=== PATIENT | male | born 1965 | race African-American/Black ===

== ENCOUNTER 2016-04-20 00:28 | Emergency (ER) | payer SELFPAY ==
[~2016-04-20] VITALS: Ht 170.2 cm; Wt 63.0 kg
[~2016-04-20 00:28] MED LIST: LEVEMIR SQ; LISI-357 PO; NOVOLOGP2 SQ
[2016-04-20 01:01] VITALS: BP 143/90; PULSE 91; RESP 16; TEMP 98; O2SAT 98
[2016-04-20] MEDS ORDERED: SODIUM CHLOR 0.9% 1000 ML INJ 1,000 ML IV ONE (01:01)
--- NOTE | 2016-04-20 01:05 | PD ---
HPI Chief Complaint: Back/ Neck Pain or Injury Time Seen by Provider: 00:50 Travel History International Travel<30 days: No Contact w/Intl Traveler<30days: No Traveled to known affect area: No History of Present Illness HPI 50-year-old male with history of diabetes, crack cocaine abuse who presents for evaluation of left flank pain. Symptoms started this afternoon. He describes it as a sharp pain in his left flank which comes and goes. No obvious alleviating factors. Aggravated by palpation of the flank. He denies any radicular symptoms, bowel or bladder incontinence, saddle anesthesia, abdominal pain, nausea, vomiting, testicular or scrotal pain, hematuria, dysuria, urethral discharge. No fevers or chills. No history of kidney stone, no history of AAA. Denies any IV drug abuse. He admits to smoking crack. He has no other complaints. PFSH Past Medical History Asthma: No Blood Disorders: No Anxiety: No Depression: No Heart Rhythm Problems: No Cancer: No Cardiovascular Problems: Yes (HTN- THINKS HE MIGHT TAKE SOMETHING AT HOME FOR IT BUT NOT REALLY SURE) Chemotherapy: No Chest Pain: No Congestive Heart Failure: No COPD: No Diabetes: Yes Diminished Hearing: No Endocrine: Yes Gastrointestinal Disorders: No Genitourinary: No Hepatitis: No Hiatal Hernia: No Hypertension: Yes (DOES NOT KNOW IF HE TAKES MEDICINE FOR IT OR NOT) Immune Disorder: No Musculoskeletal: No Neurologic: No Psychiatric: No Reproductive: No Respiratory: No Radiation Therapy: No Sleep Apnea: No Thyroid Disease: No Past Surgical History Abdominal Surgery: Yes (R INGUINAL HERNIA REPAIR IN CHILDHOOD) AICD: No Joint Replacement: No Pacemaker: No Other Surgery: Yes (HERNIA REPAIR) Social History Alcohol Use: No Tobacco Use: Yes (beginning of jan 2015) Substance Use: No Allergies-Medications (Allergen,Severity, Reaction): Coded Allergies: No Known Allergies (Unverified , 04/20/16) Reported Meds & Prescriptions Reported Meds & Active Scripts Active No Active Prescriptions or Reported Medications Review of Systems Except as stated in HPI: all other systems reviewed are Neg Physical Exam Narrative GENERAL: Well-developed well-nourished male who appears uncomfortable on initial examination. SKIN: Warm and dry. No rash, no flank or periumbilical ecchymosis HEAD: Atraumatic. Normocephalic. EYES: Pupils equal and round. No scleral icterus. No injection or drainage. ENT: No nasal bleeding or discharge. Mucous membranes pink and moist. NECK: Trachea midline. No JVD. CARDIOVASCULAR: Regular rate and rhythm. No murmur appreciated. RESPIRATORY: No accessory muscle use. Clear to auscultation. Breath sounds equal bilaterally. GASTROINTESTINAL: Abdomen soft, non-tender, nondistended. Hepatic and splenic margins not palpable. MUSCULOSKELETAL: No obvious deformities. There is tenderness to palpation of the left flank. There is no tenderness to palpation along the thoracic or lumbar midline spine. NEUROLOGICAL: Awake and alert. No obvious cranial nerve deficits. Motor grossly within normal limits. Normal speech. PSYCHIATRIC: Appropriate mood and affect; insight and judgment normal. Data Data Last Documented VS Vital Signs Date Time Temp Pulse Resp B/P Pulse Ox O2 Delivery O2 Flow Rate FiO2 04/20/16 02:03 16 04/20/16 01:01 98.0 91 143/90 98 Room Air Orders ^ Other Nursing Orders (04/20/16 00:50) Complete Blood Count With Diff (04/20/16 01:01) Comprehensive Metabolic Panel (04/20/16 01:01) Urinalysis - C+S If Indicated (04/20/16 01:01) Ct Abd/Pel W/O Iv Contrast (04/20/16 01:01) Iv Access Insert/Monitor (04/20/16 01:01) Ketorolac Inj (Toradol Inj) (04/20/16 01:15) Morphine Inj (Morphine Inj) (04/20/16 01:15) Ondansetron Inj (Zofran Inj) (04/20/16 01:15) Sodium Chloride 0.9% Flush (Ns Flush) (04/20/16 01:15) Sodium Chlor 0.9% 1000 Ml Inj (Ns 1000 M (04/20/16 01:01) Orphenadrine Inj (Norflex Inj) (04/20/16 03:00) Labs Laboratory Tests Test 04/20/16 01:15 White Blood Count 7.2 TH/MM3 Red Blood Count 5.44 MIL/MM3 Hemoglobin 14.2 GM/DL Hematocrit 44.2 % Mean Corpuscular Volume 81.3 FL Mean Corpuscular Hemoglobin 26.1 PG Mean Corpuscular Hemoglobin 32.1 % Concent Red Cell Distribution Width 15.1 % Platelet Count 217 TH/MM3 Mean Platelet Volume 9.4 FL Neutrophils (%) (Auto) 71.2 % Lymphocytes (%) (Auto) 21.5 % Monocytes (%) (Auto) 5.9 % Eosinophils (%) (Auto) 0.7 % Basophils (%) (Auto) 0.7 % Neutrophils # (Auto) 5.1 TH/MM3 Lymphocytes # (Auto) 1.6 TH/MM3 Monocytes # (Auto) 0.4 TH/MM3 Eosinophils # (Auto) 0.1 TH/MM3 Basophils # (Auto) 0.1 TH/MM3 CBC Comment DIFF FINAL Differential Comment Urine Color YELLOW Urine Turbidity CLEAR Urine pH 6.0 Urine Specific [place] 1.017 Urine Protein NEG mg/dL Urine Glucose (UA) NEG mg/dL Urine Ketones NEG mg/dL Urine Occult Blood NEG Urine Nitrite NEG Urine Bilirubin NEG Urine Urobilinogen LESS THAN 2.0 MG/DL Urine Leukocyte Esterase NEG Urine Mucus FEW /lpf Microscopic Urinalysis Comment CULT NOT INDICATED Sodium Level 140 MEQ/L Potassium Level 4.5 MEQ/L Chloride Level 104 MEQ/L Carbon Dioxide Level 29.8 MEQ/L Anion Gap 6 MEQ/L Blood Urea Nitrogen 16 MG/DL Creatinine 0.92 MG/DL Estimat Glomerular Filtration 106 ML/MIN Rate Random Glucose 152 MG/DL Calcium Level 9.1 MG/DL Total Bilirubin 0.7 MG/DL Aspartate Amino Transf 40 U/L (AST/SGOT) Alanine Aminotransferase 59 U/L (ALT/SGPT) Alkaline Phosphatase 77 U/L Total Protein 7.8 GM/DL Albumin 3.9 GM/DL MDM Medical Decision Making Medical Screen Exam Complete: Yes Emergency Medical Condition: Yes Medical Record Reviewed: Yes Differential Diagnosis Muscle spasm, renal stone, pyelonephritis, rupturing AAA Narrative Course 50-year-old male presents with pain in the left flank region of his back which started today. On examination he has tenderness to palpation in the left flank region. He has no vertebral midline tenderness. He appears well otherwise. His abdomen is soft and nontender. The patient was given pain medication, IV fluids. Basic lab work and CT of the abdomen and pelvis were performed revealing no acute abnormalities. Likely the patient is having a muscle spasm. He is stable for discharge. Diagnosis Primary Impression: Back spasm Additional Instructions: Follow-up with primary care. Return for any emergent medical conditions. Med/Other Pt SpecificInfo: No Change to Meds Scripts No Active Prescriptions or Reported Meds Disposition: 01 DISCHARGE HOME Condition: Stable Fernando Arechiga Apr 20, 2016 01:04
[2016-04-20] MEDS ORDERED: KETOROLAC TROMETHAMINE 30 MG/ML (IVP) VIAL IVP ONE (01:15)
[2016-04-20] MEDS ORDERED: SODIUM CHLORIDE 0.9% FLUSH 5 ML FLUSH IVF PRN (01:15)
[2016-04-20] MEDS ORDERED: ONDANSETRON HCL 4 MG/2 ML VIAL IVP ONE (01:15)
[2016-04-20] MEDS ORDERED: MORPHINE SULFATE 4 MG/ML INJ IV ONE (01:15)
[2016-04-20 01:40] LABS: BLOOD, URINE NEG (NEG); COMMENT (UR) CULT NOT INDICATED; CULTURE IF INDICATED CULT NOT INDICATED; GLUCOSE,URINE NEG (NEG); KETONE, URINE NEG (NEG); MUCUS URINE FEW /lpf (OCC); NITRITE,URINE NEG (NEG); URINE COLOR YELLOW (YELLW/STRAW)
[2016-04-20 01:46] LABS: AUTOMATED NEUTROPHIL # 5.1 TH/MM3 (1.8-7.7); BASOPHIL # 0.1 TH/MM3 (0-0.2); BASOPHIL % 0.7 % (0.0-2.0); EOSINOPHIL # 0.1 TH/MM3 (0-0.4); EOSINOPHIL % 0.7 % (0.0-4.0); HEMATOCRIT 44.2 % (39.0-51.0); HEMO FLAGS DIFF FINAL; LYMPH % 21.5 % (9.0-44.0); LYMPHOCYTE # 1.6 TH/MM3 (1.0-4.8); MEAN CELL VOLUME 81.3 FL (80.0-100.0); MEAN CORPUSCULAR HEMOGLOBIN 26.1 PG (27.0-34.0); MEAN CORPUSCULAR HGB CONC 32.1 % (32.0-36.0); MONO % 5.9 % (0.0-8.0); NEUT % 71.2 % (16.0-70.0); PLATELET COUNT 217 TH/MM3 (150-450); RED BLOOD COUNT 5.44 MIL/MM3 (4.50-5.90); RED CELL DISTRIBUTION WIDTH 15.1 % (11.6-17.2); WHITE BLOOD COUNT 7.2 TH/MM3 (4.0-11.0)
[2016-04-20 01:59] LABS: ANION GAP 6 MEQ/L (5-15); AST (GOT) 40 U/L (15-37); BICARBONATE 29.8 MEQ/L (21.0-32.0); BLOOD UREA NITROGEN 16 MG/DL (7-18); CHLORIDE 104 MEQ/L (98-107); GLOMERULAR FILTRATION RATE 106 ML/MIN (>89); POTASSIUM 4.5 MEQ/L (3.5-5.1); SODIUM (NA) 140 MEQ/L (136-145)
[2016-04-20 02:02] LABS: ALKALINE PHOSPHATASE 77 U/L (45-117); ALT (GPT) 59 U/L (12-78); TOTAL BILIRUBIN ADULT 0.7 MG/DL (0.2-1.0)
[2016-04-20 02:03] VITALS: RESP 16
--- NOTE | 2016-04-20 02:49 | RADRPT ---
EXAM DATE/TIME: 04/20/2016 01:41 [facility] COMPARISON: No previous studies available for comparison. INDICATIONS : Lower back pain. ORAL CONTRAST: No oral contrast ingested. RADIATION DOSE: 13.28 CTDIvol (mGy) MEDICAL HISTORY : Hypertension. Hernia, inguinal. SURGICAL HISTORY : Inguinal hernia repair. ENCOUNTER: Initial ACUITY: 1 day PAIN SCALE: 6/10 LOCATION: Bilateral lower back TECHNIQUE: Volumetric scanning of the abdomen and pelvis was performed. Using automated exposure control and ad justment of the mA and/or kV according to patient size, radiation dose was kept as low as reasonably achievable to obtain optimal diagnostic quality images. FINDINGS: Right side: No evidence of hydronephrosis or calcified stones. The right kidney is ptotic, probably due to hepat omegaly. Left side: No evidence of hydronephrosis or calcified stones. Retroperitoneum: No calcifications along the expected course of either ureter. Bladder: Smooth margins. No calcifications within the lumen. Other: Hepatomegaly with superior/inferior dimension in excess of 22 cm. No calcified gallstones. No dilat ed loops of small or large bowel. CONCLUSION: No calcified stones or hydronephrosis. Hepatomegaly. Manan Piper MD on April 20, 2016 at 2:44 Board Certified Radiologist. This report was verified electronically.
[2016-04-20] MEDS ORDERED: ORPHENADRINE INJ 60 MG/2 ML AMP IV ONE (03:00)
[2016-04-20 03:39] VITALS: BP 151/63
== END 2016-04-20 03:41 | disposition home or self-care (01) ==
LOC: NEPB 00:28
DX: M62.830 Muscle spasm of back (principal); E11.9 Type 2 diabetes mellitus without complications; I10 Essential (primary) hypertension; F17.210 Nicotine dependence, cigarettes, uncomplicated
CPT/HCPCS: 74176; 80053; 81001; 85025; 96361; 96374; 96375; 99284; J1885; J2270; J2360; J2405; J7030

== ENCOUNTER 2016-09-16 05:27 | Inpatient (IN) | payer SELFPAY ==
[~2016-09-16] VITALS: Ht 177.8 cm; Wt 61.8 kg
[2016-09-16] VITALS (26 sets, daily range): BP systolic 86–200; BP diastolic 58–124; PULSE 85–133; RESP 14–24; TEMP 97.3–99.9; O2SAT 88–99
[2016-09-16] MEDS ORDERED: VECURONIUM BROMIDE 10 MG VIAL ONE (05:30)
[2016-09-16] MEDS ORDERED: VECURONIUM BROMIDE 10 MG VIAL IV ONE (05:45)
[2016-09-16] MEDS ORDERED: SODIUM CHLORIDE 0.9% FLUSH 10 ML FLUSH IVF PRN ×2 (05:45)
[2016-09-16] MEDS ORDERED: PROPOFOL 200 MG/20 ML AMP IV ONE (05:45)
--- NOTE | 2016-09-16 05:56 | PD ---
HPI Chief Complaint: Code Blue Time Seen by Provider: 05:38 Travel History International Travel<30 days: No Contact w/Intl Traveler<30days: No Traveled to known affect area: No History of Present Illness HPI 51-year-old male with history of diabetes, hep C, substance abuse, presents to the ER brought in by EMS because he stated initially that he had been having shortness of breath for several days, got worse when he uses cocaine about an hour prior to seeing the EMS crew. While he was complaining, he became unresponsive and was found to be in PEA by the ambulance crew, they intubated him with a Combitube and started CPR with around epinephrine and got him back fairly quickly into perfusing rhythm. He was intubated by me in the ER. Modifying Factors: None Associated Signs & Symptoms: Respiratory arrest, PEA code Risk Factors: Cocaine use PFSH Past Medical History Diabetes: Yes Social History Tobacco Use: Yes Allergies-Medications (Allergen,Severity, Reaction): Coded Allergies: UNOBTAINABLE (Unverified , 09/16/16) Reported Meds & Prescriptions Reported Meds & Active Scripts Active Active Prescriptions or Reported Medications Unobtainable Review of Systems ROS Limitations: Intubated Physical Exam Narrative GENERAL: Well-developed middle age -German male patient who is intubated, starting to move. SKIN: Focused skin assessment warm/dry. HEAD: Atraumatic. Normocephalic. EYES: Pupils equal and round. No scleral icterus. No injection or drainage. ENT: No nasal bleeding or discharge. Mucous membranes pink and moist. Intubated. NECK: Trachea midline. Positive JVD. CARDIOVASCULAR: Regular rate and rhythm. No murmur appreciated. RESPIRATORY: Notable accessory muscle use. Breath sounds equal bilaterally with crackles bilaterally. GASTROINTESTINAL: Abdomen soft, non-tender, nondistended. Hepatic and splenic margins not palpable. MUSCULOSKELETAL: No obvious deformities. No clubbing. No cyanosis. No edema. NEUROLOGICAL: Intubated, trying to struggle against the tube. Data Data Last Documented VS Vital Signs Date Time Temp Pulse Resp B/P Pulse Ox O2 Delivery O2 Flow Rate FiO2 09/16/16 06:36 122 14 145/91 90 Ventilator 100 09/16/16 05:58 98.4 Orders Vecuronium 10 Mg Inj (Norcuron 10 Mg Inj (09/16/16 05:30) Complete Blood Count With Diff (6/20/17 05:38) Comprehensive Metabolic Panel (09/16/16 05:38) B-Type Natriuretic Peptide (09/16/16 05:38) Act Partial Throm Time (Ptt) (09/16/16 05:38) Prothrombin Time / Inr (Pt) (09/16/16 05:38) Ckmb (Isoenzyme) Profile (09/16/16 05:38) Troponin I (09/16/16 05:38) Arterial Blood Gas (Abg) (09/16/16 05:38) Iv Access Insert/Monitor (09/16/16 05:38) Electrocardiogram (09/16/16 05:38) Ecg Monitoring (09/16/16 05:38) Oximetry (09/16/16 05:38) Oxygen Administration (09/16/16 05:38) Chest, Single Ap (09/16/16 05:38) Urinary Catheter Insert/Apply (09/16/16 05:38) Sodium Chloride 0.9% Flush (Ns Flush) (09/16/16 05:45) Ng Gastric Tube Insert/Monitor (09/16/16 05:38) Vecuronium 10 Mg Inj (Norcuron 10 Mg Inj (09/16/16 05:45) Sodium Chloride 0.9% Flush (Ns Flush) (09/16/16 05:45) Restraints Non-Violent ALBERTO.Q3H (09/16/16 05:38) Propofol 200 Mg/20 Ml Inj (Diprivan 200 (09/16/16 05:45) Propofol 1000 Mg/100 Ml Inj (Diprivan 10 (09/16/16 05:45) Drug Screen, Random Urine (09/16/16 05:41) Lactic Acid Sepsis Protocol (09/16/16 06:17) Urinalysis - C+S If Indicated (09/16/16 06:17) Blood Culture (09/16/16 06:17) Ceftriaxone Inj (Rocephin Inj) (09/16/16 06:17) Azithromycin Inj (Zithromax Inj) (09/16/16 06:17) Sodium Bicarbonate 8.4% Inj (Sodium Bica (09/16/16 06:30) CKMB (09/16/16 05:45) CKMB% (09/16/16 05:45) Ct Brain W/O Iv Contrast(Rout) (09/16/16 06:37) Sodium Bicarbonate 8.4% Inj (Sodium Bica (09/16/16 06:38) Ct Thorax/ Chest W Iv Contrast (09/16/16 06:40) Labs Laboratory Tests Test 09/16/16 05:45 White Blood Count 13.0 TH/MM3 Red Blood Count 5.16 MIL/MM3 Hemoglobin 13.6 GM/DL Hematocrit 44.5 % Mean Corpuscular Volume 86.3 FL Mean Corpuscular Hemoglobin 26.4 PG Mean Corpuscular Hemoglobin 30.6 % Concent Red Cell Distribution Width 15.2 % Platelet Count 221 TH/MM3 Mean Platelet Volume 10.3 FL Neutrophils (%) (Auto) 47.1 % Lymphocytes (%) (Auto) 39.1 % Monocytes (%) (Auto) 11.3 % Eosinophils (%) (Auto) 1.8 % Basophils (%) (Auto) 0.7 % Neutrophils # (Auto) 6.1 TH/MM3 Lymphocytes # (Auto) 5.1 TH/MM3 Monocytes # (Auto) 1.5 TH/MM3 Eosinophils # (Auto) 0.2 TH/MM3 Basophils # (Auto) 0.1 TH/MM3 CBC Comment DIFF FINAL Differential Comment Prothrombin Time 11.1 SEC Prothromb Time International 1.0 RATIO Ratio Activated Partial 30.6 SEC Thromboplast Time Total Bilirubin 0.8 MG/DL Alkaline Phosphatase 108 U/L Total Creatine Kinase 658 U/L Troponin I 0.09 NG/ML Total Protein 7.1 GM/DL MDM Medical Decision Making Medical Screen Exam Complete: Yes Emergency Medical Condition: Yes Medical Record Reviewed: Yes Interpretation(s) EKG shows sinus tachycardia at a rate of 125 bpm with no signs of acute ST-T changes. LVH. Laboratory Tests Test 09/16/16 05:45 White Blood Count 13.0 TH/MM3 (4.0-11.0) Mean Corpuscular Hemoglobin 26.4 PG (27.0-34.0) Mean Corpuscular Hemoglobin 30.6 % Concent (32.0-36.0) Monocytes (%) (Auto) 11.3 % (0.0-8.0) Lymphocytes # (Auto) 5.1 TH/MM3 (1.0-4.8) Monocytes # (Auto) 1.5 TH/MM3 (0-0.9) Activated Partial 30.6 SEC Thromboplast Time (24.3-30.1) Total Creatine Kinase 658 U/L (39-308) Troponin I 0.09 NG/ML (0.02-0.05) Last 24 hours Impressions Chest X-Ray 09/16/16 0538 Signed Impressions: Service Date/Time: Friday, September 16, 2016 05:56 - CONCLUSION: 1. Bilateral airspace opacities, densest in the left midlung. Left mid lung pneumonia superimposed on pulmonary edema suspected. No pleural effusion seen. 2. Mild cardiomegaly. 3. Appropriate position of the endotracheal tube and nasogastric tube. Marcos Simpson MD Differential Diagnosis Pneumonia versus COPD exacerbation versus CHF versus flash pulmonary edema Narrative Course Chest x-ray shows bilateral pulmonary infiltrates, suspicious for pulmonary edema with possible underlying left sided pneumonia. IV antibiotics and sepsis protocol were initiated in the ER. Initial ABG shows significant elevation of PCO2 and acidosis. It appears to be rest her acidosis and a increase in respiratory rate was done. Patient had increasing PEEP as well in order to help with airway maintenance and pulmonary edema. At this point, IV fluids were stopped a 1 L from the pneumonia and sepsis protocol. Case was discussed with Dr. Cotton who it sepsis patient. He would also like CT of the chest and brain for further evaluation as well. Aggregate critical care time was 35 minutes. Time to perform other separately billable procedures was not included in the critical care time. My time did not include minutes spent treating any other patients simultaneously or on activities that did not directly contribute to the patient's treatment. The services I provided to this patient were to treat and/or prevent clinically significant deterioration that could result in: Respiratory arrest, cardiopulmonary arrest, septic shock, I provided critical care services requiring my management, as noted below: Chart data review, documentation time, medication orders and management, vital sign assessments/reviewing monitor data, ordering and reviewing lab tests, ordering and interpreting/reviewing x-rays and diagnostic studies, care of the patient and discussion of the patient with the admitting physicians. Procedures Procedure Narrative In order to protect the airway, the following procedure was performed: INTUBATION: The patient was put in optimal position for the procedure. Rapid sequence intubation was initiated by me using 100 mg of propofol IV and 10 milligrams of vecuronium IV. The patient was intubated with a 8.0 cuffed endotracheal tube. Tube placement was confirmed by visualization of the tube and balloon passing through the cords, capnometry and subsequent chest x-ray. Breath sounds were equal and well aerated bilaterally postintubation. No breath sounds over stomach. Patient tolerated procedure well. Diagnosis Primary Impression: Pulseless electrical activity Additional Impressions: Pulmonary edema Endotracheally intubated Sepsis Admitting Information Admitting Physician Requests: Admit Scripts Unable to Obtain Active Prescriptions or Reported Meds Maria C Phipps MD Sep 16, 2016 05:56
--- NOTE | 2016-09-16 06:11 | RADRPT ---
EXAM DATE/TIME: 09/16/2016 05:56 [facility] COMPARISON: No previous studies available for comparison. INDICATIONS : Short of breath, Post intubation. MEDICAL HISTORY : None. SURGICAL HISTORY : None. ENCOUNTER: Initial ACUITY: 1 day PAIN SCORE: 0/10 LOCATION: Bilateral chest FINDINGS: Bilateral infiltrates are present, fairly diffuse but most confluent in the left midlung. No pleural effusion seen. No pneumothorax. There is mild cardiomegaly. Endotracheal tube tip is below the thoracic inlet approximately 5 cm above the viktor. There is a viri ogastric tube with tip and sidehole in the stomach. CONCLUSION: 1. Bilateral airspace opacities, densest in the left midlung. Left mid lung pneumonia superimposed on pulmonary edema suspected. No pleural effusion seen. 2. Mild cardiomegaly. 3. Appropriate position of the endotracheal tube and nasogastric tube. Marcos Simpson MD on September 16, 2016 at 6:08 Board Certified Radiologist. This report was verified electronically.
[2016-09-16 06:12] LABS: AUTOMATED NEUTROPHIL # 6.1 TH/MM3 (1.8-7.7); BASOPHIL # 0.1 TH/MM3 (0-0.2); BASOPHIL % 0.7 % (0.0-2.0); EOSINOPHIL # 0.2 TH/MM3 (0-0.4); EOSINOPHIL % 1.8 % (0.0-4.0); HEMATOCRIT 44.5 % (39.0-51.0); HEMO FLAGS DIFF FINAL; LYMPH % 39.1 % (9.0-44.0); LYMPHOCYTE # 5.1 TH/MM3 (1.0-4.8); MEAN CELL VOLUME 86.3 FL (80.0-100.0); MEAN CORPUSCULAR HEMOGLOBIN 26.4 PG (27.0-34.0); MEAN CORPUSCULAR HGB CONC 30.6 % (32.0-36.0); MONO % 11.3 % (0.0-8.0); NEUT % 47.1 % (16.0-70.0); PLATELET COUNT 221 TH/MM3 (150-450); RED BLOOD COUNT 5.16 MIL/MM3 (4.50-5.90); RED CELL DISTRIBUTION WIDTH 15.2 % (11.6-17.2)
[2016-09-16 06:17] LABS: APTT (PATIENT) 30.6 SEC (24.3-30.1); PROTHROMBIN TIME - PATIENT 11.1 SEC (9.8-11.6)
[2016-09-16] MEDS: cefTRIAXone INJ 2,000 MG in SODIUM CHLORIDE 0.9% INJ 100 ML IV STA ×2 (06:17→07:32)
[2016-09-16] MEDS ORDERED: AZITHROMYCIN INJ 500 MG in SODIUM CHLOR 0.9% 250 ML INJ 250 ML IV STA (06:17)
[2016-09-16] MEDS ORDERED: SODIUM BICARBONATE 8.4% INJ 50 MEQ/50 ML SYR IV PUSH ONE (06:30)
[2016-09-16 06:31] LABS: ALKALINE PHOSPHATASE 108 U/L (45-117); CREATINE KINASE 658 U/L (39-308); TOTAL BILIRUBIN ADULT 0.8 MG/DL (0.2-1.0)
[2016-09-16] MEDS ORDERED: SODIUM BICARBONATE 8.4% INJ 50 MEQ/50 ML SYR ONE (06:38)
[2016-09-16 06:40] LABS: BLOOD GAS CARBOXYHEMOGLOBIN 1.3 % (0-4); BLOOD GAS HCO3 24 mmol/L (22-26); BLOOD GAS O2 HGB SATURATION 89 % (90-100); BLOOD GAS OXYGEN CONTENT 16.6 Vol % (12.0-20.0); BLOOD GAS PCO2 105 mmHg (38-42); BLOOD GAS PO2 96 mmHG (61-120); BLOOD GAS TOTAL HGB 13.2 G/DL (12.0-16.0); TEMP CORR TO 98.6
[2016-09-16 06:41] LABS: CRITICAL VALUE YES; DRAW SITE RT FEMORAL; FIO2 100 %; NUMBER OF ARTERIAL PUNCTURES 1; OXYGEN DEVICE VENTILATOR; STAT YES
[2016-09-16 06:43] LABS: CKMB 10.8 NG/ML (0.5-3.6)
[2016-09-16 07:03] LABS: ALT (GPT) 65 U/L (12-78); ANION GAP 18 MEQ/L (5-15); AST (GOT) 54 U/L (15-37); BICARBONATE 20.7 MEQ/L (21.0-32.0); BLOOD UREA NITROGEN 15 MG/DL (7-18); CHLORIDE 106 MEQ/L (98-107); GLOMERULAR FILTRATION RATE 39 ML/MIN (>89); SODIUM (NA) 145 MEQ/L (136-145)
[2016-09-16 07:20] LABS: BLOOD GAS BASE EXCESS -1.2 mmol/L (-2-2); BLOOD GAS CARBOXYHEMOGLOBIN 1.5 % (0-4); BLOOD GAS HCO3 27 mmol/L (22-26); BLOOD GAS METHEMOGLOBIN 0.9 % (0-2); BLOOD GAS O2 HGB SATURATION 87 % (90-100); BLOOD GAS OXYGEN CONTENT 16.4 Vol % (12.0-20.0); BLOOD GAS PCO2 80 mmHg (38-42); BLOOD GAS PO2 76 mmHG (61-120); BLOOD GAS TOTAL HGB 13.3 G/DL (12.0-16.0); TEMP CORR TO 98.6
[2016-09-16 07:22] LABS: CRITICAL VALUE YES; OXYGEN DEVICE VENT
[2016-09-16 07:23] LABS: DRAW SITE RT RADIAL; FIO2 100 %; NUMBER OF ARTERIAL PUNCTURES 1; STAT NO; ULNAR PULSE PRESENT; VENT SETTINGS 22/450/PEEP10/I-T0.9
[2016-09-16 08:03] LABS: BACTERIA, URINE OCC /hpf; BLOOD, URINE MOD (NEG); GLUCOSE,URINE 150 mg/dL (NEG); KETONE, URINE NEG (NEG); MUCUS URINE MOD /lpf (OCC); NITRITE,URINE NEG (NEG); PH, URINE 6.5 (5.0-8.5); SQUAMOUS EPITHELIAL CELL URINE 1 /hpf (0-5); URINE COLOR YELLOW (YELLW/STRAW)
[2016-09-16 08:05] LABS: COMMENT (UR) CATH-CULTURE IND; CULTURE IF INDICATED CATH CULTURE IND
[2016-09-16] MEDS ORDERED: MISCELLANEOUS NURSING INFORMATION XX SCH (08:15)
[2016-09-16] MEDS ORDERED: DILTIAZEM HCL 25 MG/5 ML VIAL IV ONE ×2 (08:15→10:30)
[2016-09-16] MEDS ORDERED: DEXTROSE 50% IN WATER 50 ML VIAL(D50) IV PRN (08:15)
[2016-09-16] MEDS ORDERED: GLUCAGON 1 MG/ML VIAL OTHER PRN ×2 (08:15→12:30)
[2016-09-16] MEDS ORDERED: CHLORHEXIDINE GLUCONATE 2 % 1 PACK (2 CLOTHS) TOP PRN (08:15)
[2016-09-16] MEDS: PROPOFOL 1000 MG/100 ML INJ 100 ML IV SCH ×5 (08:29→23:51)
[2016-09-16 08:32] LABS: LACTIC ACID GHOST NOT REPORTABLE
[2016-09-16] MEDS: PIPERACIL-TAZO 4.5 GM PREMIX 100 ML IV SCH ×3 (08:35→23:15)
[2016-09-16] MEDS ORDERED: BUMETANIDE INJ 1 MG/4 ML VIAL IV PUSH ONE ×2 (09:00→10:30)
[2016-09-16] MEDS ORDERED: INSULIN NovoLIN REGULAR SUPPLEMENTAL SCALE SQ SCH (09:00)
--- NOTE | 2016-09-16 09:53 | RADRPT ---
EXAM DATE/TIME: 09/16/2016 09:28 [facility] COMPARISON: No previous studies available for comparison. INDICATIONS : Altered mental status. RADIATION DOSE: 56.35 CTDIvol (mGy) MEDICAL HISTORY : Diabetes mellitus type 2. SURGICAL HISTORY : None. ENCOUNTER: Initial ACUITY: 1 day PAIN SCALE: Non-responsive LOCATION: cranial TECHNIQUE: Multiple contiguous axial images were obtained of the head. Using automated exposure control and adj ustment of the mA and/or kV according to patient size, radiation dose was kept as low as reasonably a chievable to obtain optimal diagnostic quality images. FINDINGS: There is motion artifact. CEREBRUM: The ventricles are normal for age. There is low attenuation throughout the white matter. No evidence of midline shift, mass lesion, hemorrhage or acute infarction. No extra-axial fluid collections are seen. POSTERIOR FOSSA: The cerebellum and brainstem are intact. The 4th ventricle is midline. The cerebellopontine angle i s unremarkable. EXTRACRANIAL: The visualized portion of the orbits is intact. SKULL: The calvaria is intact. No evidence of skull fracture. CONCLUSION: 1. Nonspecific white matter changes. 2. No intraparenchymal hemorrhage or midline shift Alirio Banegas MD on September 16, 2016 at 9:49 Board Certified Radiologist. This report was verified electronically.
--- NOTE | 2016-09-16 09:57 | RADRPT ---
EXAM DATE/TIME: 09/16/2016 09:33 [facility] COMPARISON: No previous studies available for comparison. INDICATIONS : Cardiac arrest. Short of breath x 2 days. RADIATION DOSE: 5.5 CTDIvol (mGy) MEDICAL HISTORY : Diabetes mellitus type 2. SURGICAL HISTORY : None. ENCOUNTER: Initial ACUITY: 1 day PAIN SCALE: Non-responsive LOCATION: chest TECHNIQUE: Volumetric scanning of the chest was performed. Using automated exposure control and adjustment of t he mA and/or kV according to patient size, radiation dose was kept as low as reasonably achievable to obtain optimal diagnostic quality images. FINDINGS: LUNGS: There is diffuse bilateral pulmonary consolidation greater in the lower lobes. A 7 x 6 mm nodule in t he right upper lobe. Mild to moderate centrilobular emphysema. PLEURAE: There is tiny bilateral pleural effusions. MEDIASTINUM: The heart and great vessels demonstrate no acute abnormality. There is no mediastinal or hilar lymph adenopathy. Cardiomegaly. AXILLAE: Within normal limits. No lymphadenopathy. MUSCULOSKELETAL: Within normal limits for patient age. MISCELLANEOUS: The visualized upper abdominal organs demonstrate no acute abnormality. Endotracheal tube and nasogas tric tube in good position. CONCLUSION: 1. Diffuse bilateral consolidation likely pulmonary edema. 2. Cardiomegaly. 3. Tiny bilateral pleural effusions. 4. A 7 x 6 mm nodule right upper lobe. Followup CT chest in 3 months recommended for stability. Alirio Banegas MD on September 16, 2016 at 9:51 Board Certified Radiologist. This report was verified electronically.
[2016-09-16] MEDS: RESP: ALBUTEROL 2.5 MG/IPRATROPIUM 0.5 MG NEB (SCH) INH ×3 (10:00→20:03)
[2016-09-16 10:38] LABS: AMPHETAMINE, URINE NEG (NEG); BARBITURATES, URINE NEG (NEG); COCAINE, URINE POS (NEG)
[2016-09-16] MEDS: fentaNYL DRIP 250 ML IV SCH (10:52)
--- NOTE | 2016-09-16 11:10 | MH ---
cc: DERREK BRYANT M.D. DATE OF ADMISSION 09/16/2016 HISTORY The patient is a 51-year-old male with a past medical history of diabetes mellitus, hepatitis C, substance abuse who presented to the ED via EMS for respiratory distress and progressive worsening shortness of breath for the past several days. It got worse when he used cocaine about one hour prior to being seen by EMS crew. While he was complaining, he became unresponsive and went into PEA arrest. He was intubated with a Combitube and ACLS protocol was initiated and the patient was given one round of epi with a return of spontaneous circulation fairly quickly. He was intubated in the ER with vecuronium and placed on full mechanical ventilation. LABORATORY DATA His laboratory data significant for lactic acidemia with lactic acid level 4.7, elevated BNP at 3005 and acute kidney injury with creatinine level of 1.84. His initial ABG post-intubation showed severe respiratory acidosis with a pH of 6.98, CO2 105, pAO2 96, bicarb 27, sats of 89%. After vent changes, repeat ABG showed a pH of 7.15 with a CO2 80, bicarb 27 and sats 87% on PRVC assist control mode at a rate of 22, tidal volume 450, PEEP of 10, I time 0.9, FIO2 100%. Chest x-ray post-intubation showed bilateral airspace opacities, mild cardiomegaly. The patient underwent CT scan of the brain which showed no evidence of any intraparenchymal hemorrhage or midline shift and CT scan of the chest showed diffuse bilateral consolidation likely pulmonary edema, cardiomegaly, tiny bilateral pleural effusions and 7 x 6 mm nodule in the right upper lobe. He was given Bumex 1 mg IV push in the ER along with sodium bicarb, Rocephin and azithromycin and placed on Diprivan for sedation. The patient was hypertensive on arrival with a systolic blood pressure of 180-200. PAST MEDICAL HISTORY Significant for: 1. Diabetes 2. Hepatitis C PAST SURGICAL HISTORY Unknown ALLERGIES Unobtainable SOCIAL HISTORY The patient has a history of polysubstance abuse including cocaine. FAMILY HISTORY Noncontributory MEDICATIONS Unknown REVIEW OF SYSTEMS Unobtainable PHYSICAL EXAMINATION The patient is a 50ish year-old male intubated and sedated with Diprivan. VITAL SIGNS: Afebrile, temperature 98.6, tachycardiac with a pulse of 113, respiratory rate of 18, blood pressure 157/92, saturation 92%. HEENT: Atraumatic, normocephalic, pupil equal and reactive to light and accommodation. Extraocular muscles intact. Conjunctivae pink. Nonicteric sclerae. Oral mucosa within normal. NECK: Supple. No JVD, adenopathy or thyromegaly. Trachea in the midline. Orally intubated. CARDIOVASCULAR: Tachycardiac, normal S1-S2. No murmurs, rubs or gallops noted. PULMONARY: Bilateral equal air entry with a few coarse breath sounds. ABDOMEN: Soft, nontender, no distension. Positive bowel sounds. EXTREMITIES: No cyanosis, clubbing or edema. The patient was moving all extremities per ED physician and now sedated with Diprivan. LABORATORY DATA Sodium 145, potassium 4, chloride 106, CO2 20, BUN of 15, creatinine 1.84, glucose 218, lactic acid 4.7, AST 54, ALT 65, alkaline phosphatase 108, total CK 658, troponin 0.09, MB percentage 1.6, BNP 3005. WBC 13, hemoglobin 13.6, hematocrit 44, platelet count 221, INR 1, PT 11.1, PTT 30.6. A urine drug screen is pending. RADIOGRAPHY STUDIES CT scan of the brain negative for acute intracranial findings. CT chest showed pulmonary edema, cardiomegaly and 7 x 6 mm nodule right upper lobe. IMPRESSION 1. Acute hypoxemic and hypercapnic respiratory failure. 2. Status post PEA arrest. 3. Acute kidney injury 4. Lactic acidemia 5. Hyperglycemia with underlying history of diabetes mellitus. 6. Pulmonary edema 7. Leukocytosis 8. History of hepatitis C 9. A 7 x 6 mm nodule right upper lobe. RECOMMENDATIONS The patient is on Diprivan infusion for sedation. We will add fentanyl drip for vent synchrony and daily sedation vacation when appropriate. CT scan of the brain in the ER showed no evidence of any intraparenchymal hemorrhage or mass effect. Follow up on urine drug screen. The patient was moving all extremities per ED physician prior to intubation. Continue vent support and maintain sats above 92%. We will increase respiratory rate up to 26, increase tidal volume to 550 and repeat ABG. Bronchodilators in the form of DuoNeb q6 and will initiate ICU vent bundle. Monitor heart rate and blood pressure closely and maintain MAP greater than 65 mmHg. We will give an additional Cardizem 10 mg IV push x1 now and place on Cardizem 60 mg q.i.d. for blood pressure and rate control. Monitor cardiac enzymes with troponins and will obtain 2-D echo to evaluate LV function and to rule out regional wall motion abnormalities. Serial lactic acid monitoring. Monitor renal function I's and O's and avoid nephrotoxins. The patient was given Bumex 1 mg IV x1 earlier, will give an additional dose now. Keep n.p.o. for now and place on Protonix 40 mg IV daily for GI prophylaxis. We will start tube feeds within the next 24 hours if remains intubated. Monitor LFTs. Continue with broad-spectrum antibiotics. We will place on Zosyn for possible aspiration and monitor for signs of infections which include fever and WBC. Follow up on blood and urine cultures which were performed in the ED. In addition, we will check strep pneumoniae, Legionella and urinary antigen and will obtain a sputum culture with gram stain. He was given ceftriaxone and azithromycin in the ED. Place on sliding scale insulin with Accu-Chek q6-hour for glycemic control. Monitor CBC. GI prophylaxis with Protonix 40 mg daily and DVT prophylaxis with SCD's and heparin subcu. Further recommendations will be based on hospital course. Critical care time 40 minutes excluding procedures. MD PHU Parekh/DOMINIK /10:27 AM /10:44 AM ENRIQUE
[2016-09-16 11:18] LABS: BLOOD GAS BASE EXCESS -2.6 mmol/L (-2-2); BLOOD GAS CARBOXYHEMOGLOBIN 1.5 % (0-4); BLOOD GAS HCO3 23 mmol/L (22-26); BLOOD GAS METHEMOGLOBIN 1.2 % (0-2); BLOOD GAS O2 HGB SATURATION 96 % (90-100); BLOOD GAS OXYGEN CONTENT 18.1 Vol % (12.0-20.0); BLOOD GAS PCO2 46 mmHg (38-42); BLOOD GAS PO2 129 mmHg (61-120); BLOOD GAS TOTAL HGB 13.4 G/DL (12.0-16.0); CRITICAL VALUE NO; DRAW SITE RT RADIAL; FIO2 100 %; NUMBER OF ARTERIAL PUNCTURES 1; OXYGEN DEVICE VENTILATOR; TEMP CORR TO 98.6
[2016-09-16 11:19] LABS: STAT NO; ULNAR PULSE PRESENT
[2016-09-16 11:20] LABS: VENT SETTINGS PRVC/AC 550/26
[2016-09-16 11:42] LABS: AUTOMATED NEUTROPHIL # 12.2 TH/MM3 (1.8-7.7); BASOPHIL % 0.3 % (0.0-2.0); EOSINOPHIL % 0.1 % (0.0-4.0); HEMATOCRIT 41.9 % (39.0-51.0); HEMO FLAGS DIFF FINAL; LYMPH % 3.3 % (9.0-44.0); LYMPHOCYTE # 0.4 TH/MM3 (1.0-4.8); MEAN CELL VOLUME 81.2 FL (80.0-100.0); MEAN CORPUSCULAR HEMOGLOBIN 25.7 PG (27.0-34.0); MEAN CORPUSCULAR HGB CONC 31.6 % (32.0-36.0); NEUT % 90.3 % (16.0-70.0); PLATELET COUNT 225 TH/MM3 (150-450); RED BLOOD COUNT 5.17 MIL/MM3 (4.50-5.90); RED CELL DISTRIBUTION WIDTH 14.5 % (11.6-17.2); WHITE BLOOD COUNT 13.5 TH/MM3 (4.0-11.0)
[2016-09-16 12:09] LABS: BICARBONATE 24.2 MEQ/L (21.0-32.0); CALCIUM-PROTEIN CORRECTED 7.7 MG/DL (8.5-10.1); POTASSIUM 3.7 MEQ/L (3.5-5.1); TOTAL BILIRUBIN ADULT 0.5 MG/DL (0.2-1.0)
[2016-09-16 14:04] LABS: CKMB 9.1 NG/ML (0.5-3.6)
[2016-09-16] MEDS ORDERED: ASPIRIN 325 MG TAB PO ONE (14:15)
[2016-09-16] MEDS ORDERED: CALCIUM GLUCONATE INJ 1 GM in SODIUM CHLORIDE 0.9% INJ 100 ML IV ONE (16:00)
--- NOTE | 2016-09-16 16:04 | RADRPT ---
EXAM DATE/TIME: 09/16/2016 14:42 [facility] COMPARISON: CT THORAX W/O CONTRAST, September 16, 2016, 9:33. INDICATIONS : Acute kidney injury. Elevated liver function. MEDICAL HISTORY : Hepatitis C. Diabetic. Substance abuse. SURGICAL HISTORY : Unobtainable. ENCOUNTER: Initial ACUITY: 1 day PAIN SCORE: Nonresponsive. LOCATION: Bilateral upper quadrant MEASUREMENTS: LIVER: 18.9 cm length COMMON DUCT: 2 mm RIGHT KIDNEY: 10.2 x 6.0 x 3.8 cm LEFT KIDNEY: 11.2 x 5.4 x 5.0 cm SPLEEN: 7.4 cm length AORTA: 1.9cm maximal FINDINGS: LIVER: Normal echotexture without focal lesion or ductal dilatation. COMMON DUCT: No intraluminal mass or stone visualized. GALLBLADDER: No gallstones are seen. The gallbladder wall is thickened at 4 mm. PANCREAS: The visualized portions are within normal limits. RIGHT KIDNEY: There is a possible duplicated system on the right side. Hydronephrosis is not seen. LEFT KIDNEY: No hydronephrosis, stone or mass. SPLEEN: Numerous tiny echogenic foci seen throughout the spleen. These do not shadow. Calcifications are not seen on the recent CT examination. AORTA: Non aneurysmal. IVC: Within normal limits. OTHER: Followup pleural effusions are seen. CONCLUSION: 1. Nonspecific gallbladder wall thickening. Gallstones are not seen. 2. Bilateral mild pleural effusions. 3. Multiple echogenic foci seen throughout the spleen. Calcifications are not seen on the CT examinat ion. These are of uncertain etiology. Noncalcified granulomas could still have this appearance. Marcos Winter MD on September 16, 2016 at 15:54 Board Certified Radiologist. This report was verified electronically.
--- NOTE | 2016-09-16 16:05 | ECHRPT ---
Indication: CHF CONCLUSIONS Mildly dilated left ventricle. The left ventricular systolic function is lcxrrldi-bo-yuqwvcc reduced with an estimated ejection fra ction in the range of 35-40%. The right ventricular size is normal. The left atrial size is pwze-al-wzgdtyyvzw dilated. Regexvkg-kg-xwrtvp mitral valve regurgitation with very eccentric jet. There is mild tricuspid valve regurgitation. BP: 155 / 111 HR: 113 Rhythm: MEASUREMENTS (Male / Female) Normal Values Technical Quality:Good 2D ECHO LV Diastolic Diameter PLAX 5.7 cm 4.2 - 5.9 / 3.9 - 5.3 cm LV Systolic Diameter PLAX 4.9 cm IVS Diastolic Thickness 1.3 cm 0.6 - 1.0 / 0.6 - 0.9 cm LVPW Diastolic Thickness 1.6 cm 0.6 - 1.0 / 0.6 - 0.9 cm LV Relative Wall Thickness 0.5 RV Internal Dim ED PLAX 1.9 cm LA Volume Index 32.0 cm/m 16 - 28 cm/m M-MODE Aortic Root Diameter MM 3.0 cm LA Systolic Diameter MM 4.5 cm LA Ao Ratio MM 1.5 AV Cusp Separation MM 1.6 cm DOPPLER Mitral E Point Velocity 137.0 cm/s Mitral A Point Velocity 87.6 cm/s Mitral E to A Ratio 1.6 TR Peak Velocity 314.0 cm/s TR Peak Gradient 39.4 mmHg FINDINGS LEFT VENTRICLE Mildly dilated left ventricle. The left ventricular systolic function is abcizemb-hf-bhtqqdd reduced with an estimated ejection fra ction in the range of 35-40%. RIGHT VENTRICLE The right ventricular size is normal. LEFT ATRIUM The left atrial size is kpnu-vq-yekqbvumnj dilated. RIGHT ATRIUM The right atrial size is normal. MITRAL VALVE Structurally normal mitral valve. Hztrsnfc-yw-dvokfq mitral valve regurgitation with very eccentric jet. AORTIC VALVE Trileaflet aortic valve. No aortic valve stenosis or regurgitation. TRICUSPID VALVE Structurally normal tricuspid valve. There is mild tricuspid valve regurgitation. PULMONARY VALVE No pulmonary valve regurgitation or stenosis. PERICARDIUM No pericardial effusion. Suman Mahajan MD (Electronically Signed) Final Date:16 September 2016 16:05
[2016-09-16] MEDS: INSULIN NovoLIN REGULAR SUPPLEMENTAL SCALE SQ SCH ×3 (16:30→23:24)
[2016-09-16] MEDS: DILTIAZEM HCL 60 MG TAB PO SCH ×4 (16:56→23:04)
--- NOTE | 2016-09-16 17:13 | EKG ---
Date Performed: 09/16/2016 Time Performed: 05:47:32 PTAGE: 89 years EKG: SINUS TACHYCARDIA WITH SHORT CT INTERVAL LEFT VENTRICULAR HYPERTROPHY AND ST-T CHANGE ABNOR MAL ECG NO PREVIOUS TRACING DOCTOR: Shoshana Prescott Interpretating Date/Time 09/16/2016 17:08:38
[2016-09-16] MEDS: HEPARIN SODIUM - SQ 10,000 UNITS/ML VIAL SQ SCH (19:57)
[2016-09-17] VITALS (18 sets, daily range): BP systolic 122–154; BP diastolic 56–97; PULSE 90–134; RESP 20–34; TEMP 98.8–100.5; O2SAT 88–100
[2016-09-17] MEDS: RESP: ALBUTEROL 2.5 MG/IPRATROPIUM 0.5 MG NEB (SCH) INH ×2 (03:35→07:40)
[2016-09-17] MEDS: CHLORHEXIDINE GLUCONATE 2 % 1 PACK (2 CLOTHS) TOP SCH (04:00)
[2016-09-17 04:24] LABS: AUTOMATED NEUTROPHIL # 6.3 TH/MM3 (1.8-7.7); BASOPHIL % 0.3 % (0.0-2.0); EOSINOPHIL # 0.1 TH/MM3 (0-0.4); HEMATOCRIT 38.6 % (39.0-51.0); HEMO FLAGS DIFF FINAL; LYMPH % 17.7 % (9.0-44.0); LYMPHOCYTE # 1.5 TH/MM3 (1.0-4.8); MEAN CELL VOLUME 80.4 FL (80.0-100.0); MEAN CORPUSCULAR HEMOGLOBIN 25.9 PG (27.0-34.0); MEAN CORPUSCULAR HGB CONC 32.2 % (32.0-36.0); MONO % 9.4 % (0.0-8.0); NEUT % 71.6 % (16.0-70.0); PLATELET COUNT 198 TH/MM3 (150-450); RED CELL DISTRIBUTION WIDTH 14.4 % (11.6-17.2); WHITE BLOOD COUNT 8.8 TH/MM3 (4.0-11.0)
[2016-09-17] MEDS: INSULIN NovoLIN REGULAR SUPPLEMENTAL SCALE SQ SCH ×5 (04:30→20:30)
[2016-09-17 04:32] LABS: BICARBONATE 27.1 MEQ/L (21.0-32.0); CALCIUM-PROTEIN CORRECTED 7.6 MG/DL (8.5-10.1); POTASSIUM 3.7 MEQ/L (3.5-5.1); TOTAL BILIRUBIN ADULT 0.7 MG/DL (0.2-1.0)
[2016-09-17] MEDS: fentaNYL DRIP 250 ML IV SCH (05:59)
[2016-09-17] MEDS: PROPOFOL 1000 MG/100 ML INJ 100 ML IV SCH ×2 (06:04→10:30)
[2016-09-17] MEDS ORDERED: CALCIUM GLUCONATE INJ 1 GM in SODIUM CHLORIDE 0.9% INJ 100 ML IV ONE (07:00)
--- NOTE | 2016-09-17 07:07 | HHI.CCPN ---
Subjective Remarks/Hospital Course The patient is a 51-year-old male with a past medical history of diabetes mellitus, hepatitis C, substance abuse who presented to the ED via EMS for respiratory distress and progressive worsening shortness of breath for the past several days. It got worse when he used cocaine about one hour prior to being seen by EMS crew. While he was complaining, he became unresponsive and went into PEA arrest. He was intubated with a Combitube and ACLS protocol was initiated and the patient was given one round of epi with a return of spontaneous circulation fairly quickly. He was intubated in the ER with vecuronium and placed on full mechanical ventilation. His laboratory data significant for lactic acidemia with lactic acid level 4.7, elevated BNP at 3005 and acute kidney injury with creatinine level of 1.84. His initial ABG post -intubation showed severe respiratory acidosis with a pH of 6.98, CO2 105, pAO2 96, bicarb 27, sats of 89%. After vent changes, repeat ABG showed a pH of 7.15 with a CO2 80, bicarb 27 and sats 87% on PRVC assist control mode at a rate of 22, tidal volume 450, PEEP of 10, I time 0.9, FIO2 100%. Chest x-ray post- intubation showed bilateral airspace opacities, mild cardiomegaly. The patient underwent CT scan of the brain which showed no evidence of any intraparenchymal hemorrhage or midline shift and CT scan of the chest showed diffuse bilateral consolidation likely pulmonary edema, cardiomegaly, tiny bilateral pleural effusions and 7 x 6 mm nodule in the right upper lobe. He was given Bumex 1 mg IV push in the ER along with sodium bicarb, Rocephin and azithromycin and placed on Diprivan for sedation. The patient was hypertensive on arrival with a systolic blood pressure of 180-200. 09/17 Patient is sedated with Diprivan and Fentanyl. T:99.9. Renal function worse today with Cr: 2.41 from 1.92. Tachycardic. Objective Vital Signs Date Time Temp Pulse Resp B/P Pulse Ox O2 Delivery O2 Flow Rate FiO2 09/17/16 06:00 134 28 150/97 98 09/17/16 04:00 40 09/17/16 04:00 99.9 09/16/16 09:05 Ventilator Intake and Output 09/16/16 09/16/16 09/17/16 08:00 16:00 00:00 Intake Total 323 ml 391 ml Output Total 1200 ml 250 ml Balance -877 ml 141 ml Result Diagram: 09/17/16 0327 09/17/16 0327 Other Results Laboratory Tests Test 09/16/16 09/16/16 09/16/16 09/16/16 07:14 11:10 11:30 12:00 Blood Gas Puncture Site RT RADIAL RT RADIAL Blood Gas Patient Temperature 98.6 98.6 Blood Gas HCO3 27 mmol/L 23 mmol/L Blood Gas Base Excess -1.2 mmol/L -2.6 mmol/L Blood Gas Oxygen Saturation 87 % 96 % Arterial Blood pH 7.15 7.31 Arterial Blood Partial 80 mmHg 46 mmHg Pressure CO2 Arterial Blood Partial 76 mmHG 129 mmHg Pressure O2 Arterial Blood Oxygen Content 16.4 Vol % 18.1 Vol % Arterial Blood 1.5 % 1.5 % Carboxyhemoglobin Arterial Blood Methemoglobin 0.9 % 1.2 % Blood Gas Hemoglobin 13.3 G/DL 13.4 G/DL Oxygen Delivery Device VENT VENTILATOR Blood Gas Ventilator Setting 22/450/PEEP10/I-T0.9 PRVC/AC 550/26 Blood Gas Inspired Oxygen 100 % 100 % White Blood Count 13.5 TH/MM3 Red Blood Count 5.17 MIL/MM3 Hemoglobin 13.3 GM/DL Hematocrit 41.9 % Mean Corpuscular Volume 81.2 FL Mean Corpuscular Hemoglobin 25.7 PG Mean Corpuscular Hemoglobin 31.6 % Concent Red Cell Distribution Width 14.5 % Platelet Count 225 TH/MM3 Mean Platelet Volume 9.5 FL Neutrophils (%) (Auto) 90.3 % Lymphocytes (%) (Auto) 3.3 % Monocytes (%) (Auto) 6.0 % Eosinophils (%) (Auto) 0.1 % Basophils (%) (Auto) 0.3 % Neutrophils # (Auto) 12.2 TH/MM3 Lymphocytes # (Auto) 0.4 TH/MM3 Monocytes # (Auto) 0.8 TH/MM3 Eosinophils # (Auto) 0.0 TH/MM3 Basophils # (Auto) 0.0 TH/MM3 CBC Comment DIFF FINAL Differential Comment Sodium Level 144 MEQ/L Potassium Level 3.7 MEQ/L Chloride Level 106 MEQ/L Carbon Dioxide Level 24.2 MEQ/L Anion Gap 14 MEQ/L Blood Urea Nitrogen 21 MG/DL Creatinine 1.92 MG/DL Estimat Glomerular Filtration 37 ML/MIN Rate Random Glucose 293 MG/DL Lactic Acid Level 3.1 mmol/L Calcium Level 7.2 MG/DL Protein Corrected Calcium 7.7 MG/DL Total Bilirubin 0.5 MG/DL Aspartate Amino Transf 44 U/L (AST/SGOT) Alanine Aminotransferase 55 U/L (ALT/SGPT) Alkaline Phosphatase 121 U/L Total Protein 6.2 GM/DL Albumin 2.7 GM/DL Nasal Screen MRSA (PCR) MRSA NOT DETECTED Test 09/16/16 09/17/16 13:01 03:27 Total Creatine Kinase 533 U/L Creatine Kinase MB 9.1 NG/ML Creatine Kinase MB % 1.7 % Troponin I 0.35 NG/ML White Blood Count 8.8 TH/MM3 Red Blood Count 4.80 MIL/MM3 Hemoglobin 12.4 GM/DL Hematocrit 38.6 % Mean Corpuscular Volume 80.4 FL Mean Corpuscular Hemoglobin 25.9 PG Mean Corpuscular Hemoglobin 32.2 % Concent Red Cell Distribution Width 14.4 % Platelet Count 198 TH/MM3 Mean Platelet Volume 9.8 FL Neutrophils (%) (Auto) 71.6 % Lymphocytes (%) (Auto) 17.7 % Monocytes (%) (Auto) 9.4 % Eosinophils (%) (Auto) 1.0 % Basophils (%) (Auto) 0.3 % Neutrophils # (Auto) 6.3 TH/MM3 Lymphocytes # (Auto) 1.5 TH/MM3 Monocytes # (Auto) 0.8 TH/MM3 Eosinophils # (Auto) 0.1 TH/MM3 Basophils # (Auto) 0.0 TH/MM3 CBC Comment DIFF FINAL Differential Comment Sodium Level 145 MEQ/L Potassium Level 3.7 MEQ/L Chloride Level 107 MEQ/L Carbon Dioxide Level 27.1 MEQ/L Anion Gap 11 MEQ/L Blood Urea Nitrogen 32 MG/DL Creatinine 2.41 MG/DL Estimat Glomerular Filtration 28 ML/MIN Rate Random Glucose 100 MG/DL Calcium Level 7.0 MG/DL Protein Corrected Calcium 7.6 MG/DL Total Bilirubin 0.7 MG/DL Aspartate Amino Transf 39 U/L (AST/SGOT) Alanine Aminotransferase 53 U/L (ALT/SGPT) Alkaline Phosphatase 99 U/L Total Protein 5.9 GM/DL Albumin 2.6 GM/DL Imaging Last Impressions Chest CT 09/16/16 0640 Signed Impressions: Service Date/Time: Friday, September 16, 2016 09:33 - CONCLUSION: 1. Diffuse bilateral consolidation likely pulmonary edema. 2. Cardiomegaly. 3. Tiny bilateral pleural effusions. 4. A 7 x 6 mm nodule right upper lobe. Followup CT chest in 3 months recommended for stability. Alirio Banegas MD Head CT 09/16/16 0637 Signed Impressions: Service Date/Time: Friday, September 16, 2016 09:28 - CONCLUSION: 1. Nonspecific white matter changes. 2. No intraparenchymal hemorrhage or midline shift Alirio Banegas MD Chest X-Ray 09/16/16 0538 Signed Impressions: Service Date/Time: Friday, September 16, 2016 05:56 - CONCLUSION: 1. Bilateral airspace opacities, densest in the left midlung. Left mid lung pneumonia superimposed on pulmonary edema suspected. No pleural effusion seen. 2. Mild cardiomegaly. 3. Appropriate position of the endotracheal tube and nasogastric tube. Marcos Simpson MD Abdomen Ultrasound 09/16/16 0000 Signed Impressions: Service Date/Time: Friday, September 16, 2016 14:42 - CONCLUSION: 1. Nonspecific gallbladder wall thickening. Gallstones are not seen. 2. Bilateral mild pleural effusions. 3. Multiple echogenic foci seen throughout the spleen. Calcifications are not seen on the CT examination. These are of uncertain etiology. Noncalcified granulomas could still have this appearance. Marcos Winter MD Objective Remarks GENERAL: Patient remains intubated and sedated SKIN: Warm and dry. HEAD: Normocephalic. EYES: No scleral icterus. No injection or drainage. NECK: Supple, trachea midline. No JVD or lymphadenopathy. CARDIOVASCULAR: Tachycardic without murmurs, gallops, or rubs. RESPIRATORY: Breath sounds equal bilaterally. No accessory muscle use. GASTROINTESTINAL: Abdomen soft, non-tender, nondistended. MUSCULOSKELETAL: No cyanosis, or edema. Neuro: Intubated A/P Assessment and Plan 1. Acute hypoxemic and hypercapnic respiratory failure. 2. Status post PEA arrest. 3. Acute kidney injury 4. Lactic acidemia 5. Hyperglycemia with underlying history of diabetes mellitus. 6. Pulmonary edema/Cardiomyopathy 7. Leukocytosis 8. History of hepatitis C 9. A 7 x 6 mm nodule right upper lobe. Plan Neuro: On Diprivan and Fentanyl infusion for sedation and vent synchrony. Daily sedation vacation CT brain showed no evidence of any intraparenchymal hemorrhage or mass effect. UDS + Cocaine Pulm: On PRVC/AC RR 26, TV 550, IT 1.0, PEEP:8, FIO2 40% Continue vent support and maintain sats > 92%. Bronchodilators, ICU vent bundle. Check CXR and ABG SBT daily as grabiel CV: Monitor HR and BP and maintain MAP > 65 mmHg. On Cardizem 60mg QID Echo showed EF 35-40%, mod-severe MR, Mild TR Monitor CK/trop, cards consulted -Dr. Maahjan Serial lactic acid monitoring : Monitor renal function I's and O's and avoid nephrotoxins. US abdomen: No hydronephrosis Cr: 2.41 from 1.92, UO: 1550ml since yesterday. Consult renal. Check urine sodium GI: On Protonix 40 mg IV daily for GI prophylaxis. Start tube feeds- Nepro with goal rate 40ml/hr Monitor LFTs. ID: Continue with abx (Zosyn) monitor for signs of infections( fever and WBC). Follow up on blood, sputum and urine cultures Strep pneumoniae, Legionella and urinary antigen negative Endo: SSI with Accu-Chek q6-hour for glycemic control. Heme: Monitor CBC. GI prophylaxis with Protonix 40 mg daily and DVT prophylaxis with SCD's and heparin subcu. Level 3 Sara Cotton MD Sep 17, 2016 07:07
[2016-09-17] MEDS ORDERED: DILTIAZEM HCL 25 MG/5 ML VIAL IV ONE (07:30)
[2016-09-17 07:46] LABS: BLOOD GAS BASE EXCESS -0.3 mmol/L (-2-2); BLOOD GAS CARBOXYHEMOGLOBIN 1.3 % (0-4); BLOOD GAS HCO3 24 mmol/L (22-26); BLOOD GAS METHEMOGLOBIN 1.1 % (0-2); BLOOD GAS O2 HGB SATURATION 95 % (90-100); BLOOD GAS OXYGEN CONTENT 16.6 Vol % (12.0-20.0); BLOOD GAS PCO2 41 mmHg (38-42); BLOOD GAS PO2 98 mmHg (61-120); BLOOD GAS TOTAL HGB 12.4 G/DL (12.0-16.0); CRITICAL VALUE NO; OXYGEN DEVICE VENTILATOR; TEMP CORR TO 98.6
[2016-09-17 07:47] LABS: DRAW SITE RT RADIAL; FIO2 35 %; NUMBER OF ARTERIAL PUNCTURES 1; STAT NO; ULNAR PULSE PRESENT; VENT SETTINGS PRVC26/550/1.0/+8
[2016-09-17] MEDS: PIPERACIL-TAZO 4.5 GM PREMIX 100 ML IV SCH ×2 (07:55→17:41)
[2016-09-17] MEDS: PANTOPRAZOLE SODIUM 40 MG VIAL IV SCH ×2 (07:55→09:00)
[2016-09-17] MEDS: HEPARIN SODIUM - SQ 10,000 UNITS/ML VIAL SQ SCH ×2 (07:56→21:31)
--- NOTE | 2016-09-17 08:02 | RADRPT ---
EXAM DATE/TIME: 09/17/2016 07:36 [facility] COMPARISON: CHEST SINGLE AP, September 16, 2016, 5:56. INDICATIONS : Shortness of breath; VDRF. MEDICAL HISTORY : Unobtainable. SURGICAL HISTORY : Unobtainable. ENCOUNTER: Subsequent ACUITY: 2 days PAIN SCORE: Non-responsive. LOCATION: Bilateral chest FINDINGS: There is a stable ETT in place. A section type NGT appears coiled in the oropharynx with tip not imag ed beyond the GE junction. Significant interval improvement in bilateral patchy airspace disease with upper lobe predominance are. Continued left lower lobe airspace disease. Cardiomediastinal contours are stable. Remainder of the exam is unchanged. CONCLUSION: 1. NGT appears coiled in the oropharynx. 2. Cardiomegaly with significant interval improvement in pulmonary edema pattern. 3. Residual airspace disease in the left lower lobe may reflect aspiration or pneumonia in the upper clinical setting. 1. Matthew Beard MD on September 17, 2016 at 7:56 Board Certified Radiologist. This report was verified electronically.
[2016-09-17] MEDS: DILTIAZEM HCL 60 MG TAB PO SCH ×4 (09:07→21:30)
[2016-09-17 14:02] LABS: BLOOD GAS BASE EXCESS -2.4 mmol/L (-2-2); BLOOD GAS CARBOXYHEMOGLOBIN 1.1 % (0-4); BLOOD GAS HCO3 23 mmol/L (22-26); BLOOD GAS METHEMOGLOBIN 1.3 % (0-2); BLOOD GAS O2 HGB SATURATION 85 % (90-100); BLOOD GAS OXYGEN CONTENT 16.3 Vol % (12.0-20.0); BLOOD GAS PCO2 44 mmHg (38-42); BLOOD GAS PO2 61 mmHg (61-120); BLOOD GAS TOTAL HGB 13.6 G/DL (12.0-16.0); CRITICAL VALUE YES; DRAW SITE RT RADIAL; FIO2 35 %; NUMBER OF ARTERIAL PUNCTURES 1; OXYGEN DEVICE VENTILATOR; STAT NO; TEMP CORR TO 98.6; ULNAR PULSE PRESENT; VENT SETTINGS CPAP+5/PS+5
[2016-09-17] MEDS ORDERED: RESP: ALBUTEROL 2.5 MG/IPRATROPIUM 0.5 MG NEB (PRN) NEB (14:30)
[2016-09-17] MEDS: RESP: ALBUTEROL 2.5 MG/IPRATROPIUM 0.5 MG NEB (SCH) NEB ×3 (15:48→23:10)
--- NOTE | 2016-09-17 16:55 | PD.CONS ---
HPI Consult Requested By Reason for Consult Acute renal insufficiency. Primary Care Physician History of Present Illness This patient was admitted as a Marcos Campbell however on questioning indicated that his name was Laci Kahn date of 1965. Previous records appear to concur. According to the records I reviewed the patient apparently had been expressing some shortness of breath for a few days prior to this admission subsequently use cocaine developed increasing shortness of breath. Was seen by EMS subsequently PEA arrest and had to be resuscitated. On presentation creatinine was 1.9 to be in of 21. Blood pressure was 200/106. Echocardiogram this admission has revealed an ejection fraction of 35%. There is also a history of diabetes mellitus and hepatitis C. Noncompliance by previous records with the patient leaving the hospital against medical advice in the past. Patient is a poor historian with poor insight into his medical issues. Review of Systems Constitutional: COMPLAINS OF: Fatigue Respiratory: COMPLAINS OF: Shortness of breath, DENIES: Apneas, Cough, Snoring , Wheezing, Hemoptysis, Sputum production Cardiovascular: DENIES: Chest pain, Palpitations, Syncope, Dyspnea on Exertion , PND, Lower Extremity Edema, Orthopnea, Claudication Gastrointestinal: DENIES: Abdominal pain, Black stools, Bloody stools, Constipation, Diarrhea, Nausea, Vomiting, Difficulty Swallowing, Anorexia Musculoskeletal: DENIES: Joint pain, Muscle aches, Stiffness, Joint Swelling, Back pain, Neck pain Past Family Social History Allergies: Coded Allergies: UNOBTAINABLE (Unverified , 09/16/16) Past Medical History Cocaine use Diabetes mellitus Hepatitis C Hypertension Noncompliance with medical care. Cardiomyopathy with ejection fraction said to be 35-40% this admission. Past Surgical History Noncontributory to current complaint. Reported Medications Reported Meds & Active Scripts Active Active Prescriptions or Reported Medications Unobtainable Active Ordered Medications Current Medications Vecuronium [place] (Norcuron 10 Mg Inj) 10 mg STK-MED ONCE .ROUTE ; Start at 05:30; Stop 09/16/16 at 05:31; Status DC Sodium Chloride (NS Flush) 2 ml UNSCH PRN IVF FLUSH AFTER USING IV ACCESS Last administered on 09/17/16 07:55; Start 09/16/16 at 05:45 Vecuronium [place] (Norcuron 10 Mg Inj) 10 mg ONCE ONCE IV Last administered on 09/16/16 05:53; Start 09/16/16 at 05:45; Stop 09/16/16 at 05:46; Status DC Sodium Chloride (NS Flush) 2 ml UNSCH PRN IVF FLUSH AFTER USING IV ACCESS; Start 09/16/16 at 05:45 Propofol 100 mg 100 mg ONCE ONCE IV Last administered on 09/16/16 05:52; Start 09/16/16 at 05:45; Stop 09/16/16 at 05:46; Status DC Propofol 100 ml @ 0 mls/hr TITRATE IV Last administered on 09/17/16 10:30; Start 09/16/16 at 05:45; Stop 09/17/16 at 14:32; Status DC Ceftriaxone Sodium 2000 mg/ Sodium Chloride 100 ml @ 200 mls/hr ONCE STAT IV Last administered on 09/16/16 07:32; Start 09/16/16 at 06:17; Stop 09/16/16 at 06:46; Status DC Azithromycin/ Sodium Chloride (Zithromax Inj/ NS 250 ml Inj) 250 ml @ 250 mls/ hr ONCE STAT IV Last administered on 09/16/16 06:35; Start 09/16/16 at 06:17 ; Stop 09/16/16 at 07:16; Status DC Sodium Bicarbonate (Sodium Bicarbonate 8.4% Inj) 50 meq ONCE ONCE IV PUSH Last administered on 09/16/16 06:37; Start 09/16/16 at 06:30; Stop 09/16/16 at 06:31; Status DC Sodium Bicarbonate (Sodium Bicarbonate 8.4% Inj) 50 meq STK-MED ONCE .ROUTE ; Start 09/16/16 at 06:38; Stop 09/16/16 at 06:39; Status DC Pantoprazole Sodium (Protonix Inj) 40 mg DAILY IV Last administered on 09:00; Start 09/16/16 at 09:00 Albuterol/ Ipratropium (Duoneb Neb) 1 ampule Q6HR NEB INH Last administered on 09/17/16 07:40; Start 09/16/16 at 10:00; Stop 09/17/16 at 14:35; Status DC Miscellaneous Information 1 [id number] XX ; Start 09/16/16 at 08:15 Chlorhexidine Gluconate (Chlorhexidine 2% Cloth) 3 pack Taper DAILY@04 TOP Last administered on 09/17/16 04:00; Start 09/17/16 at 04:00; Stop 09/13/17 at 03:59 Chlorhexidine Gluconate (Chlorhexidine 2% Cloth) 3 pack UNSCH PRN TOP HYGIENIC CARE; Start 09/16/16 at 08:15 Diltiazem HCl (Cardizem Inj) 10 mg ONCE ONCE IV Last administered on 08:28; Start 09/16/16 at 08:15; Stop 09/16/16 at 08:16; Status DC Diltiazem HCl (Cardizem) 60 mg QID PO Last administered on 09/17/16 11:26; Start 09/16/16 at 09:00 Bumetanide 1 mg 1 mg ONCE ONCE IV PUSH Last administered on 09/16/16 08:28; Start 09/16/16 at 09:00; Stop 09/16/16 at 09:01; Status DC Piperacillin Sod/ Tazobactam Sod (Zosyn 4.5 Gm Premix) 100 ml @ 200 mls/hr Q8H IV Last administered on 09/17/16 07:55; Start 09/16/16 at 08:15 Dextrose (D50w (Vial) Inj) 50 ml UNSCH PRN IV HYPOGLYCEMIA-SEE COMMENTS; Start 09/16/16 at 08:15 Glucagon (Glucagon Inj) 1 mg UNSCH PRN OTHER HYPOGLYCEMIA-SEE COMMENTS; Start 09/16/16 at 08:15 Insulin Human Regular 1 1 Q6H SQ ; Start 09/16/16 at 09:00; Stop 09/16/16 at 12: 27; Status DC Fentanyl Citrate (fentaNYL DRIP) 250 ml @ 0 mls/hr TITRATE IV Last administered on 09/17/16 05:59; Start 09/16/16 at 10:30; Stop 09/17/16 at 14:32 ; Status DC Diltiazem HCl (Cardizem Inj) 10 mg ONCE ONCE IV Last administered on 10:50; Start 09/16/16 at 10:30; Stop 09/16/16 at 10:32; Status DC Bumetanide (Bumex Inj) 1 mg ONCE ONCE IV PUSH Last administered on 09/16/16 10:50; Start 09/16/16 at 10:30; Stop 09/16/16 at 10:31; Status DC Heparin Sodium (Porcine) (Heparin Inj) 5,000 units Q12HR SQ Last administered on 09/17/16 07:56; Start 09/16/16 at 21:00 Glucagon (Glucagon Inj) 1 mg UNSCH PRN OTHER HYPOGLYCEMIA-SEE COMMENTS; Start 09/16/16 at 12:30 Insulin Human Regular 1 1 Q4H SQ Last administered on 09/16/16 16:30; Start at 12:30 Calcium Gluconate/ Sodium Chloride (Calcium Gluconate Inj/NS Inj) 110 ml @ 110 mls/hr ONCE ONCE IV Last administered on 09/16/16 16:58; Start 09/16/16 at 16 :00; Stop 09/16/16 at 16:59; Status DC Aspirin 325 mg 325 mg ONCE ONCE PO Last administered on 09/16/16 16:55; Start 09/16/16 at 14:15; Stop 09/16/16 at 14:16; Status DC Calcium Gluconate/ Sodium Chloride (Calcium Gluconate Inj/NS Inj) 110 ml @ 110 mls/hr ONCE ONCE IV Last administered on 09/17/16 10:41; Start 09/17/16 at 07 :00; Stop 09/17/16 at 07:59; Status DC Diltiazem HCl (Cardizem Inj) 10 mg ONCE ONCE IV Last administered on 07:55; Start 09/17/16 at 07:30; Stop 09/17/16 at 07:31; Status DC Albuterol/ Ipratropium (Duoneb Neb) 1 ampule Q4HR NEB NEB Last administered on 09/17/16 15:48; Start 09/17/16 at 16:00 Albuterol/ Ipratropium (Duoneb Neb) 1 ampule Q2HR NEB PRN NEB SHORTNESS OF BREATH; Start 09/17/16 at 14:30 Family History Noncontributory to current complaint. Social History illicit drug use as indicated above. Physical Exam Vital Signs Vital Signs Date Time Temp Pulse Resp B/P Pulse Ox O2 Delivery O2 Flow Rate FiO2 09/17/16 14:00 108 09/17/16 12:35 35 09/17/16 12:00 99.0 127 26 138/65 97 09/17/16 12:00 127 09/17/16 11:34 100 35 09/17/16 10:00 134 09/17/16 08:00 40 09/17/16 08:00 133 09/17/16 08:00 100.5 133 26 138/70 90 09/17/16 07:43 96 35 09/17/16 06:00 134 28 150/97 98 09/17/16 05:00 134 26 150/97 98 09/17/16 04:00 98 40 09/17/16 04:00 99.9 90 22 123/56 98 09/17/16 03:00 99.9 90 20 122/58 98 09/17/16 02:00 93 129/58 09/17/16 01:00 99.6 93 22 134/58 98 09/17/16 00:00 99.8 93 22 140/58 98 09/16/16 23:25 98 40 09/16/16 23:00 97 22 131/59 98 09/16/16 23:00 97 09/16/16 22:00 99.2 100 24 126/61 98 09/16/16 21:00 99.8 100 24 130/58 97 09/16/16 20:00 99.9 100 22 86/63 98 09/16/16 19:58 99 40 09/16/16 19:00 98 128/85 98 09/16/16 18:00 105 136/67 Physical Exam GENERAL: Afro-[place] male. Appears malnourished and unkept. SKIN: Warm and dry. HEAD: Normocephalic. EYES: No scleral icterus. No injection or drainage. NECK: Supple, trachea midline. No JVD or lymphadenopathy. CARDIOVASCULAR: Regular rate and rhythm without murmurs, gallops, or rubs. RESPIRATORY: Breath sounds equal bilaterally. Coarse breath sounds bilaterally with a few harsh rales in the lower zones bilaterally. GASTROINTESTINAL: Abdomen soft, non-tender, nondistended. MUSCULOSKELETAL: No cyanosis, or edema. BACK: Nontender without obvious deformity. No CVA tenderness. Laboratory Laboratory Tests Test 09/17/16 09/17/16 09/17/16 09/17/16 03:27 07:32 08:20 13:48 White Blood Count 8.8 Red Blood Count 4.80 Hemoglobin 12.4 Hematocrit 38.6 Mean Corpuscular Volume 80.4 Mean Corpuscular Hemoglobin 25.9 Mean Corpuscular Hemoglobin 32.2 Concent Red Cell Distribution Width 14.4 Platelet Count 198 Mean Platelet Volume 9.8 Neutrophils (%) (Auto) 71.6 Lymphocytes (%) (Auto) 17.7 Monocytes (%) (Auto) 9.4 Eosinophils (%) (Auto) 1.0 Basophils (%) (Auto) 0.3 Neutrophils # (Auto) 6.3 Lymphocytes # (Auto) 1.5 Monocytes # (Auto) 0.8 Eosinophils # (Auto) 0.1 Basophils # (Auto) 0.0 CBC Comment DIFF FINAL Differential Comment Sodium Level 145 Potassium Level 3.7 Chloride Level 107 Carbon Dioxide Level 27.1 Anion Gap 11 Blood Urea Nitrogen 32 Creatinine 2.41 Estimat Glomerular Filtration 28 Rate Random Glucose 100 Calcium Level 7.0 Protein Corrected Calcium 7.6 Total Bilirubin 0.7 Aspartate Amino Transf 39 (AST/SGOT) Alanine Aminotransferase 53 (ALT/SGPT) Alkaline Phosphatase 99 Total Protein 5.9 Albumin 2.6 Blood Gas Puncture Site RT RADIAL RT RADIAL Blood Gas Patient Temperature 98.6 98.6 Blood Gas HCO3 24 23 Blood Gas Base Excess -0.3 -2.4 Blood Gas Oxygen Saturation 95 85 Arterial Blood pH 7.39 7.34 Arterial Blood Partial 41 44 Pressure CO2 Arterial Blood Partial 98 61 Pressure O2 Arterial Blood Oxygen Content 16.6 16.3 Arterial Blood 1.3 1.1 Carboxyhemoglobin Arterial Blood Methemoglobin 1.1 1.3 Blood Gas Hemoglobin 12.4 13.6 Oxygen Delivery Device VENTILATOR VENTILATOR Blood Gas Ventilator Setting PRVC26/550/1.0/+8 CPAP+5/PS+5 Blood Gas Inspired Oxygen 35 35 Lactic Acid Level 1.0 Troponin I 0.19 Date/Time Procedure Status Source Growth 09/16/16 12:45 Gram Stain - Final Resulted Sputum Endotracheal 09/16/16 12:45 Sputum Culture - Preliminary Resulted Sputum Endotracheal NO GROWTH IN 24 HOURS. 09/16/16 07:05 Urine Culture - Preliminary Resulted Urine Catheterized Urine NO GROWTH IN 24 HOURS. 09/16/16 07:05 Legionella Antigen - Final Complete Urine Catheterized Urine PRESUMPTIVE NEGATIVE FOR LEGIONELLA P... 09/16/16 07:05 Streptococcus pneumoniae Antigen (M - Final Complete Urine Catheterized Urine PRESUMPTIVE NEGATIVE FOR STREPTOCOCCU... 6/20/17 06:30 Aerobic Blood Culture - Preliminary Resulted Blood Peripheral NO GROWTH IN 1 DAY 09/16/16 06:30 Anaerobic Blood Culture - Preliminary Resulted Blood Peripheral NO GROWTH IN 1 DAY Result Diagram: 09/17/16 0327 09/17/16 0327 Imaging Last 48 hours Impressions Chest X-Ray 09/17/16 0000 Signed Impressions: Service Date/Time: Saturday, September 17, 2016 07:36 - CONCLUSION: 1. NGT appears coiled in the oropharynx. 2. Cardiomegaly with significant interval improvement in pulmonary edema pattern. 3. Residual airspace disease in the left lower lobe may reflect aspiration or pneumonia in the upper clinical setting. 1. Matthew Beard MD Chest CT 09/16/16 0640 Signed Impressions: Service Date/Time: Friday, September 16, 2016 09:33 - CONCLUSION: 1. Diffuse bilateral consolidation likely pulmonary edema. 2. Cardiomegaly. 3. Tiny bilateral pleural effusions. 4. A 7 x 6 mm nodule right upper lobe. Followup CT chest in 3 months recommended for stability. Alirio Banegas MD Head CT 09/16/16 0637 Signed Impressions: Service Date/Time: Friday, September 16, 2016 09:28 - CONCLUSION: 1. Nonspecific white matter changes. 2. No intraparenchymal hemorrhage or midline shift Alirio Banegas MD Chest X-Ray 09/16/16 0538 Signed Impressions: Service Date/Time: Friday, September 16, 2016 05:56 - CONCLUSION: 1. Bilateral airspace opacities, densest in the left midlung. Left mid lung pneumonia superimposed on pulmonary edema suspected. No pleural effusion seen. 2. Mild cardiomegaly. 3. Appropriate position of the endotracheal tube and nasogastric tube. Marcos Simpson MD Abdomen Ultrasound 09/16/16 0000 Signed Impressions: Service Date/Time: Friday, September 16, 2016 14:42 - CONCLUSION: 1. Nonspecific gallbladder wall thickening. Gallstones are not seen. 2. Bilateral mild pleural effusions. 3. Multiple echogenic foci seen throughout the spleen. Calcifications are not seen on the CT examination. These are of uncertain etiology. Noncalcified granulomas could still have this appearance. Marcos Winter MD Assessment and Plan Problem List: (1) Acute kidney insufficiency Plan: Most likely secondary to previous cardiac arrest and the patient may have developed acute tubular necrosis. Also there may be a component of cardiorenal syndrome this remains to be determined. Patient's creatinine level was within normal range previously back in March 2016 however it is possible patient may have developed significant nephrosclerosis from uncontrolled hypertension. Uncertain if hepatitis C could be playing a role also. Serological studies as ordered. Defer diuretic therapy to critical care for the present. Medications should be adjusted for the patient's estimated GFR if clinically indicated. Avoid agents with significant potential for nephrotoxicity possible including NSAIDs for analgesia, iodine contrast agents. Gadolinium is contraindicated if the GFR is below 30. Case discussed with critical care. (2) Cardiomyopathy Plan: Most likely related to cocaine usage and noncompliance with hypertensive regimen. (3) Non-compliance Plan: Suspect that there will be little improvement in his compliance and his long-term prognosis most likely very poor. Nadia Guillermo MD Sep 17, 2016 16:55
[2016-09-17] MEDS ORDERED: ceFAZolin 2 GM PREMIX 50 ML ONE (19:04)
[2016-09-17] MEDS ORDERED: LABETALOL HCL 100 MG/20 ML VIAL IV PRN (22:45)
[2016-09-17] MEDS ORDERED: MIDAZOLAM HCL 5 MG/ML VIAL (1 ML) ONE (23:49)
[2016-09-17] MEDS ORDERED: ROCURONIUM INJ 50 MG/5 ML VIAL ONE (23:51)
[2016-09-18] VITALS (39 sets, daily range): BP systolic 104–150; BP diastolic 54–89; PULSE 74–120; RESP 11–25; TEMP 98.1–101; O2SAT 94–98
[2016-09-18] MEDS ORDERED: LABETALOL HCL 200 MG TAB PO SCH
[2016-09-18] MEDS ORDERED: PROPOFOL 1000 MG/100 ML INJ 100 ML IV SCH
--- NOTE | 2016-09-18 00:13 | PD.PROCEDR ---
Procedure Note Procedure DX: Hypoxemic Respiratory Failure (J96.01) OP: Orotracheal intubation (64302) Indications: Progressively worsening hypoxemia. Attempted BiPAP NIV but sats only 91% on FiO2 1.0. Requires intubation. Procedure: Bag mask ventilation. Versed 10 mg and rocuronium 50 mg iv. Intubated orally with 8.0 tube. Position confirmed with CO2 detection, breath sounds, sats 97%. CXR ordered, will review. Cleveland Sesay MD Sep 18, 2016 00:13
[2016-09-18] MEDS ORDERED: ROCURONIUM INJ 50 MG/5 ML VIAL IV SCH (00:30)
[2016-09-18] MEDS: INSULIN NovoLIN REGULAR SUPPLEMENTAL SCALE SQ SCH ×6 (00:30→19:39)
--- NOTE | 2016-09-18 00:55 | RADRPT ---
EXAM DATE/TIME: 09/18/2016 00:21 [facility] COMPARISON: CHEST SINGLE AP, September 17, 2016, 7:36. INDICATIONS : ET tube placement MEDICAL HISTORY : Unobtainable SURGICAL HISTORY : Unobtainable ENCOUNTER: Initial ACUITY: 1 day PAIN SCORE: Non-responsive. LOCATION: Bilateral chest FINDINGS: Mild bilateral perihilar and basilar consolidation developing. Small, bilateral pleural effusions are suspected. There is mild cardiomegaly. No pneumothorax seen. Endotracheal tube tip is approximately 3.5 cm above the viktor. There is a nasogastric tube coursing into the stomach. CONCLUSION: 1. Bilateral infiltrates developing, probably pulmonary edema related. 2. Unchanged mild cardiomegaly. 3. Endotracheal tube tip is about 3.5 cm above the viktor. Marcos Simpson MD on September 18, 2016 at 0:52 Board Certified Radiologist. This report was verified electronically.
[2016-09-18] MEDS: PIPERACIL-TAZO 4.5 GM PREMIX 100 ML IV SCH ×3 (01:12→15:50)
[2016-09-18] MEDS: RESP: ALBUTEROL 2.5 MG/IPRATROPIUM 0.5 MG NEB (SCH) NEB ×6 (03:59→23:37)
[2016-09-18] MEDS: CHLORHEXIDINE GLUCONATE 2 % 1 PACK (2 CLOTHS) TOP SCH (04:00)
[2016-09-18 05:15] LABS: BLOOD GAS BASE EXCESS -0.9 mmol/L (-2-2); BLOOD GAS CARBOXYHEMOGLOBIN 1.1 % (0-4); BLOOD GAS HCO3 24 mmol/L (22-26); BLOOD GAS O2 HGB SATURATION 97 % (90-100); BLOOD GAS PCO2 45 mmHg (38-42); BLOOD GAS PO2 149 mmHg (61-120); BLOOD GAS TOTAL HGB 13.1 G/DL (12.0-16.0); CRITICAL VALUE NO; OXYGEN DEVICE VENTILATOR; TEMP CORR TO 98.6
[2016-09-18 05:16] LABS: DRAW SITE RT RADIAL; FIO2 70 %; NUMBER OF ARTERIAL PUNCTURES 1; STAT NO; ULNAR PULSE PRESENT; VENT SETTINGS AC/RR14/VT500/PEEP8
[2016-09-18 06:05] LABS: AUTOMATED NEUTROPHIL # 8.3 TH/MM3 (1.8-7.7); BASOPHIL % 0.2 % (0.0-2.0); EOSINOPHIL # 0.1 TH/MM3 (0-0.4); EOSINOPHIL % 0.8 % (0.0-4.0); HEMATOCRIT 41.2 % (39.0-51.0); HEMO FLAGS DIFF FINAL; LYMPH % 10.6 % (9.0-44.0); LYMPHOCYTE # 1.1 TH/MM3 (1.0-4.8); MEAN CELL VOLUME 81.8 FL (80.0-100.0); MEAN CORPUSCULAR HEMOGLOBIN 25.7 PG (27.0-34.0); MEAN CORPUSCULAR HGB CONC 31.4 % (32.0-36.0); MONO % 9.6 % (0.0-8.0); NEUT % 78.8 % (16.0-70.0); PLATELET COUNT 174 TH/MM3 (150-450); RED BLOOD COUNT 5.04 MIL/MM3 (4.50-5.90); RED CELL DISTRIBUTION WIDTH 14.5 % (11.6-17.2); WHITE BLOOD COUNT 10.6 TH/MM3 (4.0-11.0)
[2016-09-18 06:27] LABS: BICARBONATE 26.7 MEQ/L (21.0-32.0); POTASSIUM 4.6 MEQ/L (3.5-5.1)
--- NOTE | 2016-09-18 07:31 | HHI.CCPN ---
Subjective Remarks/Hospital Course The patient is a 51-year-old male with a past medical history of diabetes mellitus, hepatitis C, substance abuse who presented to the ED via EMS for respiratory distress and progressive worsening shortness of breath for the past several days. It got worse when he used cocaine about one hour prior to being seen by EMS crew. While he was complaining, he became unresponsive and went into PEA arrest. He was intubated with a Combitube and ACLS protocol was initiated and the patient was given one round of epi with a return of spontaneous circulation fairly quickly. He was intubated in the ER with vecuronium and placed on full mechanical ventilation. His laboratory data significant for lactic acidemia with lactic acid level 4.7, elevated BNP at 3005 and acute kidney injury with creatinine level of 1.84. His initial ABG post -intubation showed severe respiratory acidosis with a pH of 6.98, CO2 105, pAO2 96, bicarb 27, sats of 89%. After vent changes, repeat ABG showed a pH of 7.15 with a CO2 80, bicarb 27 and sats 87% on PRVC assist control mode at a rate of 22, tidal volume 450, PEEP of 10, I time 0.9, FIO2 100%. Chest x-ray post- intubation showed bilateral airspace opacities, mild cardiomegaly. The patient underwent CT scan of the brain which showed no evidence of any intraparenchymal hemorrhage or midline shift and CT scan of the chest showed diffuse bilateral consolidation likely pulmonary edema, cardiomegaly, tiny bilateral pleural effusions and 7 x 6 mm nodule in the right upper lobe. He was given Bumex 1 mg IV push in the ER along with sodium bicarb, Rocephin and azithromycin and placed on Diprivan for sedation. The patient was hypertensive on arrival with a systolic blood pressure of 180-200. 09/17 Patient is sedated with Diprivan and Fentanyl. T:99.9. Renal function worse today with Cr: 2.41 from 1.92. Tachycardic. 09/18 Patient was extubated yesterday during day but was reintubated at midnight for hypoxemia nd increase O2 requirements. Now sedated with Diprivan and Fentanyl. Renal function is improving with Cr: 1.81 from 2.41. T:100.5 Objective Vital Signs Date Time Temp Pulse Resp B/P Pulse Ox O2 Delivery O2 Flow Rate FiO2 09/18/16 06:00 76 09/18/16 05:51 96 50 09/18/16 04:00 99.0 17 105/55 09/17/16 20:53 Partial Rebreather 15.00 Intake and Output 09/17/16 09/17/16 09/18/16 08:00 16:00 00:00 Intake Total 326 ml 727 ml 110 ml Output Total 100 ml 1000 ml 975 ml Balance 226 ml -273 ml -865 ml Result Diagram: 09/18/16 0516 09/18/16 0516 Other Results Laboratory Tests Test 09/17/16 09/17/16 09/17/16 09/18/16 07:32 08:20 13:48 05:01 Blood Gas Puncture Site RT RADIAL RT RADIAL RT RADIAL Blood Gas Patient Temperature 98.6 98.6 98.6 Blood Gas HCO3 24 mmol/L 23 mmol/L 24 mmol/L Blood Gas Base Excess -0.3 mmol/L -2.4 mmol/L -0.9 mmol/L Blood Gas Oxygen Saturation 95 % 85 % 97 % Arterial Blood pH 7.39 7.34 7.34 Arterial Blood Partial 41 mmHg 44 mmHg 45 mmHg Pressure CO2 Arterial Blood Partial 98 mmHg 61 mmHg 149 mmHg Pressure O2 Arterial Blood Oxygen Content 16.6 Vol % 16.3 Vol % 18.0 Vol % Arterial Blood 1.3 % 1.1 % 1.1 % Carboxyhemoglobin Arterial Blood Methemoglobin 1.1 % 1.3 % 1.0 % Blood Gas Hemoglobin 12.4 G/DL 13.6 G/DL 13.1 G/DL Oxygen Delivery Device VENTILATOR VENTILATOR VENTILATOR Blood Gas Ventilator Setting PRVC26/550/1.0/+8 CPAP+5/PS+5 AC/RR14/VT500/PEEP8 Blood Gas Inspired Oxygen 35 % 35 % 70 % Lactic Acid Level 1.0 mmol/L Troponin I 0.19 NG/ML Test 09/18/16 05:16 White Blood Count 10.6 TH/MM3 Red Blood Count 5.04 MIL/MM3 Hemoglobin 13.0 GM/DL Hematocrit 41.2 % Mean Corpuscular Volume 81.8 FL Mean Corpuscular Hemoglobin 25.7 PG Mean Corpuscular Hemoglobin 31.4 % Concent Red Cell Distribution Width 14.5 % Platelet Count 174 TH/MM3 Mean Platelet Volume 9.8 FL Neutrophils (%) (Auto) 78.8 % Lymphocytes (%) (Auto) 10.6 % Monocytes (%) (Auto) 9.6 % Eosinophils (%) (Auto) 0.8 % Basophils (%) (Auto) 0.2 % Neutrophils # (Auto) 8.3 TH/MM3 Lymphocytes # (Auto) 1.1 TH/MM3 Monocytes # (Auto) 1.0 TH/MM3 Eosinophils # (Auto) 0.1 TH/MM3 Basophils # (Auto) 0.0 TH/MM3 CBC Comment DIFF FINAL Differential Comment Sodium Level 144 MEQ/L Potassium Level 4.6 MEQ/L Chloride Level 108 MEQ/L Carbon Dioxide Level 26.7 MEQ/L Anion Gap 9 MEQ/L Blood Urea Nitrogen 38 MG/DL Creatinine 1.81 MG/DL Estimat Glomerular Filtration 39 ML/MIN Rate Random Glucose 137 MG/DL Calcium Level 7.9 MG/DL Imaging Last Impressions Chest X-Ray 09/18/16 0000 Signed Impressions: Service Date/Time: August 00:21 - CONCLUSION: 1. Bilateral infiltrates developing, probably pulmonary edema related. 2. Unchanged mild cardiomegaly. 3. Endotracheal tube tip is about 3.5 cm above the viktor. Marcos Simpson MD Chest CT 09/16/16 0640 Signed Impressions: Service Date/Time: Friday, September 16, 2016 09:33 - CONCLUSION: 1. Diffuse bilateral consolidation likely pulmonary edema. 2. Cardiomegaly. 3. Tiny bilateral pleural effusions. 4. A 7 x 6 mm nodule right upper lobe. Followup CT chest in 3 months recommended for stability. Alirio Banegas MD Head CT 09/16/16 0637 Signed Impressions: Service Date/Time: Friday, September 16, 2016 09:28 - CONCLUSION: 1. Nonspecific white matter changes. 2. No intraparenchymal hemorrhage or midline shift Alirio Banegas MD Abdomen Ultrasound 09/16/16 0000 Signed Impressions: Service Date/Time: Friday, September 16, 2016 14:42 - CONCLUSION: 1. Nonspecific gallbladder wall thickening. Gallstones are not seen. 2. Bilateral mild pleural effusions. 3. Multiple echogenic foci seen throughout the spleen. Calcifications are not seen on the CT examination. These are of uncertain etiology. Noncalcified granulomas could still have this appearance. Marcos Winter MD Objective Remarks GENERAL: Patient remains intubated and sedated SKIN: Warm and dry. HEAD: Normocephalic. EYES: No scleral icterus. No injection or drainage. NECK: Supple, trachea midline. No JVD or lymphadenopathy. CARDIOVASCULAR: Tachycardic without murmurs, gallops, or rubs. RESPIRATORY: Breath sounds equal bilaterally. No accessory muscle use. GASTROINTESTINAL: Abdomen soft, non-tender, nondistended. MUSCULOSKELETAL: No cyanosis, or edema. Neuro: Intubated A/P Assessment and Plan 1. Acute hypoxemic and hypercapnic respiratory failure. Extubated yesterday then intubated last night. 2. Status post PEA arrest. 3. Acute kidney injury 4. Lactic acidemia 5. Hyperglycemia with underlying history of diabetes mellitus. 6. Pulmonary edema/Cardiomyopathy 7. Leukocytosis 8. History of hepatitis C 9. A 7 x 6 mm nodule right upper lobe. Plan Neuro: On Diprivan and Fentanyl infusion for sedation and vent synchrony. Daily sedation vacation CT brain showed no evidence of any intraparenchymal hemorrhage or mass effect. UDS + Cocaine Pulm: On PRVC/AC RR 14, TV 500, IT 1.0, PEEP:8, FIO2 50%. Decrease FIO2 40% Continue vent support and maintain sats > 92%. Bronchodilators, ICU vent bundle. SBT daily as grabiel CV: Monitor HR and BP and maintain MAP > 65 mmHg. On Cardizem 60mg QID Echo showed EF 35-40%, mod-severe MR, Mild TR cards consulted -Dr. Mahajan, [facility] trending down Lactic acid cleared 1.0 on 09/17 : Monitor renal function I's and O's and avoid nephrotoxins. US abdomen: No hydronephrosis Renal function is improving with Cr: 1.81 from 2.41, UO: 2690 ml in 24 hrs Renal is following- Dr. Guillermo GI: On Protonix 40 mg IV daily for GI prophylaxis. Start tube feeds- Glucerna 1.5 with goal rate 45ml/hr Monitor LFTs. ( trending down) ID: Continue with abx (Zosyn) monitor for signs of infections( fever and WBC). Follow up on blood, sputum and urine cultures Strep pneumoniae, Legionella and urinary antigen negative Endo: SSI with Accu-Chek q6-hour for glycemic control. Heme: Monitor CBC. GI prophylaxis with Protonix 40 mg daily and DVT prophylaxis with SCD's and heparin subcu. Level 3 Sara Cotton MD Sep 18, 2016 07:31
[2016-09-18] MEDS: HEPARIN SODIUM - SQ 10,000 UNITS/ML VIAL SQ SCH ×2 (07:56→19:35)
[2016-09-18] MEDS: PANTOPRAZOLE SODIUM 40 MG VIAL IV SCH (07:57)
[2016-09-18] MEDS: DILTIAZEM HCL 60 MG TAB PO SCH ×4 (07:57→19:35)
[2016-09-18] MEDS: CHLORHEXIDINE 0.12% (ORAL KIT) 15 ML CUP MT SCH ×2 (07:58→19:36)
[2016-09-18] MEDS: fentaNYL DRIP 250 ML IV SCH ×2 (09:30→19:36)
[2016-09-18] MEDS: ASPIRIN 81 MG CHEW TAB PO SCH (10:54)
--- NOTE | 2016-09-18 10:54 | MB ---
cc: REGINA CROCKER M.D. DATE OF CONSULTATION 09/18/2016 REASON FOR CONSULTATION Evaluation of elevated troponin. PRESENT ILLNESS This is a 51-year-old man who appears to be the same patient as Laci Kahn, but I do not have that completely confirmed yet. Apparently he is 51 years old, has a history of diabetes, hepatitis C, substance abuse and severe chronic noncompliance. Apparently was using cocaine and then had an episode of respirator arrest. I cannot obtain any history from the patient and there is no family. Apparently he used cocaine about an hour prior to seeing EMS. He became unresponsive. He was in PEA and they intubated him and got him back. He required reintubation yesterday. He is currently on a ventilator and I cannot obtain any history. PAST MEDICAL HISTORY Diabetes. Hepatitis C. PAST SURGICAL HISTORY Unknown. ALLERGIES Unknown. SOCIAL HISTORY Notable for cocaine on his tox screen. FAMILY HISTORY Unknown. REVIEW OF SYSTEMS Unknown. PHYSICAL EXAMINATION GENERAL: Physical exam reveals a thin, -N[place]ib[place] male, sedated, on a ventilator. HEENT: Exam unremarkable. NECK: Increased central venous pressure. CHEST: Diminished breath sounds. CARDIAC: Exam shows PMI slightly laterally displaced. Normal first and second heart sounds. There is a soft systolic murmur. ABDOMEN: Soft. EXTREMITIES: Excellent distal pulses. No peripheral edema. CARDIOLOGY STUDIES Chest x-ray is suggestive of mild CHF. Echo showed impaired LV function with an EF of 35-40% and moderate to severe MR with a very eccentric mitral regurgitation jet. LABORATORY DATA Hematocrit is 41.2. Creatinine has come down from a peak of 2.41, down to 1.81. His troponins went from 0.09 to 0.35 and then 0.19. BNP is 3005. Tox screen is positive for cocaine. Urinalysis is abnormal. Urine protein elevated. EKG Sinus rhythm with pronounced LVH, LV strain. IMPRESSION Suspect cocaine or hypertensive-related cardiomyopathy. Elevated troponin is somewhat nonspecific in the setting of a cardiac arrest. Chest x-ray is showing mild congestion. RECOMMENDATIONS 1. I was going to add low-dose Lasix to see if we can relieve the congestion and help improve his odds of getting extubated. 2. I am adding a baby aspirin. 3. He is on oral Cardizem . I have asked them to stop that but will continue for now. Beta-abby abby would be a better choice but it is somewhat complicated because of the cocaine in his system. Adding an EDUIN inhibitor is also complicated because of the elevated creatinine. I am going to hold off at this point. 4. Further therapy to be determined. MD NATALIA Ochoa/SSB /9:43 AM /10:41 AM
[2016-09-18] MEDS: FUROSEMIDE 20 MG/2 ML VIAL IV PUSH SCH (16:58)
--- NOTE | 2016-09-18 17:37 | HHI.NPPN ---
Subjective History of Present Illness According to the records I reviewed the patient apparently had been expressing some shortness of breath for a few days prior to this admission subsequently use cocaine developed increasing shortness of breath. Was seen by EMS subsequently PEA arrest and had to be resuscitated. On presentation creatinine was 1.9 to be in of 21. Blood pressure was 200/106. Echocardiogram this admission has revealed an ejection fraction of 35%. There is also a history of diabetes mellitus and hepatitis C. Noncompliance by previous records with the patient leaving the hospital against medical advice in the past. Patient is a poor historian with poor insight into his medical issues. Interval History Noted patient reintubated since yesterday. Also is currently on furosemide IV and diuresing well. Review of Systems General General Remarks The patient is intubated on a ventilator. Objective Data Data 09/17/16 09/18/16 19:00 07:00 Intake Total 727 ml 261 ml Output Total 1000 ml 1690 ml Balance -273 ml -1429 ml IV Total 727 ml 261 ml Output Urine Total 1000 ml 1690 ml # Bowel Movements 0 Vital Signs Date Time Temp Pulse Resp B/P Pulse Ox O2 Delivery O2 Flow Rate FiO2 09/18/16 16:00 45 09/18/16 16:00 90 09/18/16 16:00 99.6 90 15 139/62 95 09/18/16 15:38 97 45 09/18/16 14:00 91 09/18/16 12:00 86 09/18/16 12:00 50 09/18/16 12:00 99.2 86 11 120/58 95 09/18/16 11:25 94 50 09/18/16 10:00 74 09/18/16 09:44 50 09/18/16 09:44 96 50 09/18/16 09:00 50 09/18/16 08:00 98.1 75 18 111/55 97 09/18/16 08:00 50 09/18/16 08:00 75 09/18/16 07:49 98 50 09/18/16 06:00 76 09/18/16 05:51 96 50 09/18/16 04:04 98 70 09/18/16 04:00 77 09/18/16 04:00 99.0 77 17 105/55 98 09/18/16 02:00 81 09/18/16 01:55 97 90 09/18/16 00:14 98 100 09/18/16 00:00 99.1 88 25 128/59 98 09/18/16 00:00 88 09/17/16 23:10 93 100 09/17/16 22:00 113 09/17/16 20:53 94 Partial Rebreather 15.00 09/17/16 20:00 98.8 101 34 154/74 96 09/17/16 20:00 101 -: 09/18/16 0516 09/18/16 0516 Medication Review Current Medications Vecuronium Allardt (Norcuron 10 Mg Inj) 10 mg STK-MED ONCE .ROUTE ; Start at 05:30; Stop 09/16/16 at 05:31; Status DC Sodium Chloride (NS Flush) 2 ml UNSCH PRN IVF FLUSH AFTER USING IV ACCESS Last administered on 09/17/16 07:55; Start 09/16/16 at 05:45 Vecuronium Allardt (Norcuron 10 Mg Inj) 10 mg ONCE ONCE IV Last administered on 09/16/16 05:53; Start 09/16/16 at 05:45; Stop 09/16/16 at 05:46; Status DC Sodium Chloride (NS Flush) 2 ml UNSCH PRN IVF FLUSH AFTER USING IV ACCESS; Start 09/16/16 at 05:45 Propofol 100 mg 100 mg ONCE ONCE IV Last administered on 09/16/16 05:52; Start 09/16/16 at 05:45; Stop 09/16/16 at 05:46; Status DC Propofol 100 ml @ 0 mls/hr TITRATE IV Last administered on 09/17/16 10:30; Start 09/16/16 at 05:45; Stop 09/17/16 at 14:32; Status DC Ceftriaxone Sodium 2000 mg/ Sodium Chloride 100 ml @ 200 mls/hr ONCE STAT IV Last administered on 09/16/16 07:32; Start 09/16/16 at 06:17; Stop 09/16/16 at 06:46; Status DC Azithromycin/ Sodium Chloride (Zithromax Inj/ NS 250 ml Inj) 250 ml @ 250 mls/ hr ONCE STAT IV Last administered on 09/16/16 06:35; Start 09/16/16 at 06:17 ; Stop 09/16/16 at 07:16; Status DC Sodium Bicarbonate (Sodium Bicarbonate 8.4% Inj) 50 meq ONCE ONCE IV PUSH Last administered on 09/16/16 06:37; Start 09/16/16 at 06:30; Stop 09/16/16 at 06:31; Status DC Sodium Bicarbonate (Sodium Bicarbonate 8.4% Inj) 50 meq STK-MED ONCE .ROUTE ; Start 09/16/16 at 06:38; Stop 09/16/16 at 06:39; Status DC Pantoprazole Sodium (Protonix Inj) 40 mg DAILY IV Last administered on 07:57; Start 09/16/16 at 09:00 Albuterol/ Ipratropium (Duoneb Neb) 1 ampule Q6HR NEB INH Last administered on 09/17/16 07:40; Start 09/16/16 at 10:00; Stop 09/17/16 at 14:35; Status DC Miscellaneous Information 1 Q361D XX ; Start 09/16/16 at 08:15 Chlorhexidine Gluconate (Chlorhexidine 2% Cloth) 3 pack Taper DAILY@04 TOP Last administered on 09/18/16 04:00; Start 09/17/16 at 04:00; Stop 09/13/17 at 03:59 Chlorhexidine Gluconate (Chlorhexidine 2% Cloth) 3 pack UNSCH PRN TOP HYGIENIC CARE; Start 09/16/16 at 08:15 Diltiazem HCl (Cardizem Inj) 10 mg ONCE ONCE IV Last administered on 08:28; Start 09/16/16 at 08:15; Stop 09/16/16 at 08:16; Status DC Diltiazem HCl (Cardizem) 60 mg QID PO Last administered on 09/18/16 16:58; Start 09/16/16 at 09:00 Bumetanide 1 mg 1 mg ONCE ONCE IV PUSH Last administered on 09/16/16 08:28; Start 09/16/16 at 09:00; Stop 09/16/16 at 09:01; Status DC Piperacillin Sod/ Tazobactam Sod (Zosyn 4.5 Gm Premix) 100 ml @ 200 mls/hr Q8H IV Last administered on 09/18/16 15:50; Start 09/16/16 at 08:15 Dextrose (D50w (Vial) Inj) 50 ml UNSCH PRN IV HYPOGLYCEMIA-SEE COMMENTS; Start 09/16/16 at 08:15 Glucagon (Glucagon Inj) 1 mg UNSCH PRN OTHER HYPOGLYCEMIA-SEE COMMENTS; Start 09/16/16 at 08:15 Insulin Human Regular 1 1 Q6H SQ ; Start 09/16/16 at 09:00; Stop 09/16/16 at 12: 27; Status DC Fentanyl Citrate (fentaNYL DRIP) 250 ml @ 0 mls/hr TITRATE IV Last administered on 09/17/16 05:59; Start 09/16/16 at 10:30; Stop 09/17/16 at 14:32 ; Status DC Diltiazem HCl (Cardizem Inj) 10 mg ONCE ONCE IV Last administered on 10:50; Start 09/16/16 at 10:30; Stop 09/16/16 at 10:32; Status DC Bumetanide (Bumex Inj) 1 mg ONCE ONCE IV PUSH Last administered on 09/16/16 10:50; Start 09/16/16 at 10:30; Stop 09/16/16 at 10:31; Status DC Heparin Sodium (Porcine) (Heparin Inj) 5,000 units Q12HR SQ Last administered on 09/18/16 07:56; Start 09/16/16 at 21:00 Glucagon (Glucagon Inj) 1 mg UNSCH PRN OTHER HYPOGLYCEMIA-SEE COMMENTS; Start 09/16/16 at 12:30; Status Cancel Insulin Human Regular 1 1 Q4H SQ Last administered on 09/16/16 16:30; Start at 12:30 Calcium Gluconate/ Sodium Chloride (Calcium Gluconate Inj/NS Inj) 110 ml @ 110 mls/hr ONCE ONCE IV Last administered on 09/16/16 16:58; Start 09/16/16 at 16 :00; Stop 09/16/16 at 16:59; Status DC Aspirin 325 mg 325 mg ONCE ONCE PO Last administered on 09/16/16 16:55; Start 09/16/16 at 14:15; Stop 09/16/16 at 14:16; Status DC Calcium Gluconate/ Sodium Chloride (Calcium Gluconate Inj/NS Inj) 110 ml @ 110 mls/hr ONCE ONCE IV Last administered on 09/17/16 10:41; Start 09/17/16 at 07 :00; Stop 09/17/16 at 07:59; Status DC Diltiazem HCl (Cardizem Inj) 10 mg ONCE ONCE IV Last administered on 07:55; Start 09/17/16 at 07:30; Stop 09/17/16 at 07:31; Status DC Albuterol/ Ipratropium (Duoneb Neb) 1 ampule Q4HR NEB NEB Last administered on 09/18/16 15:38; Start 09/17/16 at 16:00 Albuterol/ Ipratropium 1 ampule 1 ampule Q2HR NEB PRN NEB SHORTNESS OF BREATH; Start 09/17/16 at 14:30 Cefazolin Sodium/ Dextrose (Ancef 2 Gm Premix) 50 ml @ As Directed STK-MED ONCE .ROUTE ; Start 09/17/16 at 19:04; Stop 09/17/16 at 19:05; Status DC Labetalol HCl (Trandate) 200 mg Q8H PO ; Start 09/18/16 at 00:00; Stop 09/18/16 at 00:00; Status DC Labetalol HCl (Trandate Inj) 20 mg Q2H PRN IV FOR SBP > 160 Last administered on 09/17/16 22:44; Start 09/17/16 at 22:45; Stop 09/17/16 at 23:56; Status DC Midazolam HCl (Versed Inj) 10 mg STK-MED ONCE .ROUTE Last administered on 00:41; Start 09/17/16 at 23:49; Stop 09/17/16 at 23:50; Status DC Rocuronium Allardt (Zemuron Inj) 100 mg STK-MED ONCE .ROUTE ; Start 09/17/16 at 23:51; Stop 09/17/16 at 23:52; Status DC Chlorhexidine Gluconate 15 ml 15 ml BID@08,20 MT Last administered on 07:58; Start 09/18/16 at 08:00 Propofol 100 ml @ 0 mls/hr TITRATE IV ; Start 09/18/16 at 00:00 Fentanyl Citrate (fentaNYL DRIP) 250 ml @ 0 mls/hr TITRATE IV Last administered on 6/22/17at 09:30; Start 09/18/16 at 00:00 Rocuronium Allardt (Zemuron Inj) 50 mg NOW IV Last administered on 09/18/16 01 :14; Start 09/18/16 at 00:30; Stop 09/18/16 at 01:05; Status DC Furosemide (Lasix Inj) 20 mg BID@09,18 IV PUSH Last administered on 09/18/16 16:58; Start 09/18/16 at 18:00 Aspirin (Aspirin Chew) 81 mg DAILY PO Last administered on 09/18/16 10:54; Start 09/18/16 at 09:45 Physical Exam General Appearance: Malnourished Eyes Eye Exam: Sclera White Pulmonary Resp Exam: Clear Bilaterally, Breath Sounds Equal Cardiology CV Exam: Regular, Normal Sinus Rhythm Gastrointestinal/Abdomen GI Exam: Soft, Non-Tender Integumentary Skin Exam: Clear, Warm Extremeties Extremities Exam: No Edema Assessment/Plan Discussed Condition With: Patient Problem List: (1) Acute kidney insufficiency Plan: Patient's renal function appears to be improving. Patient likely has a component of cardiorenal syndrome improving with diuresis. Continue diuresis as ordered by cardiology. Await hepatitis C PCR and other .serological studies as ordered. Medications should be adjusted for the patient's estimated GFR if clinically indicated. Avoid agents with significant potential for nephrotoxicity possible including NSAIDs for analgesia, iodine contrast agents. Gadolinium is contraindicated if the GFR is below 30. (2) Cardiomyopathy Plan: Most likely related to cocaine usage and noncompliance with hypertensive regimen. (3) Non-compliance Plan: Suspect that there will be little improvement in his compliance and his long-term prognosis most likely very poor. (4) Hypocalcemia Plan: We'll check vitamin D level. Nadia Guillermo MD Sep 18, 2016 17:37
[2016-09-18] MEDS ORDERED: ACETAMINOPHEN 325 MG TAB PO PRN (23:45)
[2016-09-19] VITALS (31 sets, daily range): BP systolic 130–201; BP diastolic 59–114; PULSE 82–104; RESP 14–29; TEMP 98.2–101; O2SAT 86–99
[2016-09-19] MEDS: INSULIN NovoLIN REGULAR SUPPLEMENTAL SCALE SQ SCH ×6 (00:30→20:30)
[2016-09-19] MEDS: PIPERACIL-TAZO 4.5 GM PREMIX 100 ML IV SCH ×3 (01:07→16:15)
[2016-09-19] MEDS: CHLORHEXIDINE GLUCONATE 2 % 1 PACK (2 CLOTHS) TOP SCH (01:09)
[2016-09-19] MEDS: RESP: ALBUTEROL 2.5 MG/IPRATROPIUM 0.5 MG NEB (SCH) NEB ×5 (04:00→20:35)
[2016-09-19] MEDS: fentaNYL DRIP 250 ML IV SCH (05:37)
[2016-09-19 05:59] LABS: AUTOMATED NEUTROPHIL # 7.1 TH/MM3 (1.8-7.7); BASOPHIL % 0.2 % (0.0-2.0); EOSINOPHIL # 0.1 TH/MM3 (0-0.4); EOSINOPHIL % 0.9 % (0.0-4.0); HEMATOCRIT 39.7 % (39.0-51.0); HEMO FLAGS DIFF FINAL; LYMPH % 11.7 % (9.0-44.0); LYMPHOCYTE # 1.1 TH/MM3 (1.0-4.8); MEAN CELL VOLUME 81.2 FL (80.0-100.0); MEAN CORPUSCULAR HEMOGLOBIN 26.5 PG (27.0-34.0); MEAN CORPUSCULAR HGB CONC 32.6 % (32.0-36.0); MONO % 13.8 % (0.0-8.0); NEUT % 73.4 % (16.0-70.0); PLATELET COUNT 193 TH/MM3 (150-450); RED BLOOD COUNT 4.89 MIL/MM3 (4.50-5.90); RED CELL DISTRIBUTION WIDTH 14.4 % (11.6-17.2); WHITE BLOOD COUNT 9.6 TH/MM3 (4.0-11.0)
[2016-09-19 06:41] LABS: ALKALINE PHOSPHATASE 80 U/L (45-117); ALT (GPT) 80 U/L (12-78); ANION GAP 5 MEQ/L (5-15); AST (GOT) 158 U/L (15-37); BICARBONATE 31.7 MEQ/L (21.0-32.0); BLOOD UREA NITROGEN 38 MG/DL (7-18); CHLORIDE 107 MEQ/L (98-107); GLOMERULAR FILTRATION RATE 56 ML/MIN (>89); POTASSIUM 5.3 MEQ/L (3.5-5.1); SODIUM (NA) 144 MEQ/L (136-145); TOTAL BILIRUBIN ADULT 0.9 MG/DL (0.2-1.0)
[2016-09-19] MEDS: CHLORHEXIDINE 0.12% (ORAL KIT) 15 ML CUP MT SCH ×2 (08:00→20:00)
--- NOTE | 2016-09-19 08:08 | HHI.CCPN ---
Subjective Remarks/Hospital Course The patient is a 51-year-old male with a past medical history of diabetes mellitus, hepatitis C, substance abuse who presented to the ED via EMS for respiratory distress and progressive worsening shortness of breath for the past several days. It got worse when he used cocaine about one hour prior to being seen by EMS crew. While he was complaining, he became unresponsive and went into PEA arrest. He was intubated with a Combitube and ACLS protocol was initiated and the patient was given one round of epi with a return of spontaneous circulation fairly quickly. He was intubated in the ER with vecuronium and placed on full mechanical ventilation. His laboratory data significant for lactic acidemia with lactic acid level 4.7, elevated BNP at 3005 and acute kidney injury with creatinine level of 1.84. His initial ABG post -intubation showed severe respiratory acidosis with a pH of 6.98, CO2 105, pAO2 96, bicarb 27, sats of 89%. After vent changes, repeat ABG showed a pH of 7.15 with a CO2 80, bicarb 27 and sats 87% on PRVC assist control mode at a rate of 22, tidal volume 450, PEEP of 10, I time 0.9, FIO2 100%. Chest x-ray post- intubation showed bilateral airspace opacities, mild cardiomegaly. The patient underwent CT scan of the brain which showed no evidence of any intraparenchymal hemorrhage or midline shift and CT scan of the chest showed diffuse bilateral consolidation likely pulmonary edema, cardiomegaly, tiny bilateral pleural effusions and 7 x 6 mm nodule in the right upper lobe. He was given Bumex 1 mg IV push in the ER along with sodium bicarb, Rocephin and azithromycin and placed on Diprivan for sedation. The patient was hypertensive on arrival with a systolic blood pressure of 180-200. 09/17 Patient is sedated with Diprivan and Fentanyl. T:99.9. Renal function worse today with Cr: 2.41 from 1.92. Tachycardic. 09/18 Patient was extubated yesterday during day but was reintubated at midnight for hypoxemia nd increase O2 requirements. Now sedated with Diprivan and Fentanyl. Renal function is improving with Cr: 1.81 from 2.41. T:100.5 09/19 Patient is sedated with Fentanyl and intubated off Diprivan. Spiked fever with T: 101.0 last night. Renal function is improving with Cr: 1.59 from 1.81 Objective Vital Signs Date Time Temp Pulse Resp B/P Pulse Ox O2 Delivery O2 Flow Rate FiO2 09/19/16 07:38 98 40 09/19/16 06:00 84 09/19/16 05:22 14 09/19/16 05:00 132/70 09/19/16 04:00 100.3 09/17/16 20:53 Partial Rebreather 15.00 Intake and Output 09/18/16 09/18/16 09/19/16 08:00 16:00 00:00 Intake Total 151 ml 317 ml 514 ml Output Total 715 ml 500 ml 1575 ml Balance -564 ml -183 ml -1061 ml Result Diagram: 09/19/1651709/19/16517 Other Results Laboratory Tests Test 09/18/16 09/19/16 14:54 05:18 Complement C3 111 MG/DL Complement C4 52 MG/DL White Blood Count 9.6 TH/MM3 Red Blood Count 4.89 MIL/MM3 Hemoglobin 13.0 GM/DL Hematocrit 39.7 % Mean Corpuscular Volume 81.2 FL Mean Corpuscular Hemoglobin 26.5 PG Mean Corpuscular Hemoglobin 32.6 % Concent Red Cell Distribution Width 14.4 % Platelet Count 193 TH/MM3 Mean Platelet Volume 9.6 FL Neutrophils (%) (Auto) 73.4 % Lymphocytes (%) (Auto) 11.7 % Monocytes (%) (Auto) 13.8 % Eosinophils (%) (Auto) 0.9 % Basophils (%) (Auto) 0.2 % Neutrophils # (Auto) 7.1 TH/MM3 Lymphocytes # (Auto) 1.1 TH/MM3 Monocytes # (Auto) 1.3 TH/MM3 Eosinophils # (Auto) 0.1 TH/MM3 Basophils # (Auto) 0.0 TH/MM3 CBC Comment DIFF FINAL Differential Comment Sodium Level 144 MEQ/L Potassium Level 5.3 MEQ/L Chloride Level 107 MEQ/L Carbon Dioxide Level 31.7 MEQ/L Anion Gap 5 MEQ/L Blood Urea Nitrogen 38 MG/DL Creatinine 1.59 MG/DL Estimat Glomerular Filtration 56 ML/MIN Rate Random Glucose 121 MG/DL Calcium Level 8.5 MG/DL Total Bilirubin 0.9 MG/DL Aspartate Amino Transf 158 U/L (AST/SGOT) Alanine Aminotransferase 80 U/L (ALT/SGPT) Alkaline Phosphatase 80 U/L Total Protein 6.6 GM/DL Albumin 2.5 GM/DL 25-Hydroxy Vitamin D Total 9.0 ng/ML Imaging Last Impressions Chest X-Ray 09/18/16 0000 Signed Impressions: Service Date/Time: August 00:21 - CONCLUSION: 1. Bilateral infiltrates developing, probably pulmonary edema related. 2. Unchanged mild cardiomegaly. 3. Endotracheal tube tip is about 3.5 cm above the viktor. Marcos Sipmson MD Chest CT 09/16/16 0640 Signed Impressions: Service Date/Time: Friday, September 16, 2016 09:33 - CONCLUSION: 1. Diffuse bilateral consolidation likely pulmonary edema. 2. Cardiomegaly. 3. Tiny bilateral pleural effusions. 4. A 7 x 6 mm nodule right upper lobe. Followup CT chest in 3 months recommended for stability. Alirio Banegas MD Head CT 09/16/16 0637 Signed Impressions: Service Date/Time: Friday, September 16, 2016 09:28 - CONCLUSION: 1. Nonspecific white matter changes. 2. No intraparenchymal hemorrhage or midline shift Alirio Banegas MD Abdomen Ultrasound 09/16/16 0000 Signed Impressions: Service Date/Time: Friday, September 16, 2016 14:42 - CONCLUSION: 1. Nonspecific gallbladder wall thickening. Gallstones are not seen. 2. Bilateral mild pleural effusions. 3. Multiple echogenic foci seen throughout the spleen. Calcifications are not seen on the CT examination. These are of uncertain etiology. Noncalcified granulomas could still have this appearance. Marcos Winter MD Objective Remarks GENERAL: Patient remains intubated and sedated SKIN: Warm and dry. HEAD: Normocephalic. EYES: No scleral icterus. No injection or drainage. NECK: Supple, trachea midline. No JVD or lymphadenopathy. CARDIOVASCULAR: Tachycardic without murmurs, gallops, or rubs. RESPIRATORY: Breath sounds equal bilaterally. No accessory muscle use. GASTROINTESTINAL: Abdomen soft, non-tender, nondistended. MUSCULOSKELETAL: No cyanosis, or edema. Neuro: Intubated A/P Assessment and Plan 1. Acute hypoxemic and hypercapnic respiratory failure. Extubated then intubated 09/17 2. Status post PEA arrest. 3. Acute kidney injury 4. Lactic acidemia 5. Hyperglycemia with underlying history of diabetes mellitus. 6. Pulmonary edema/Cardiomyopathy 7. Leukocytosis 8. History of hepatitis C 9. A 7 x 6 mm nodule right upper lobe. Plan Neuro: On Fentanyl infusion for sedation and vent synchrony. Daily sedation vacation CT brain showed no evidence of any intraparenchymal hemorrhage or mass effect. UDS + Cocaine Pulm: On PRVC/AC RR 14, TV 500, IT 1.0, PEEP:8, FIO2 40%. Decrease PEEP:5 Continue vent support and maintain sats > 92%. Bronchodilators, ICU vent bundle. SBT daily as grabiel CV: Monitor HR and BP and maintain MAP > 65 mmHg. On Cardizem 60mg QID, ASA 81mg daily Echo showed EF 35-40%, mod-severe MR, Mild TR cards -Dr. Mahajan, trop trending down Lactic acid cleared 1.0 on 09/17 : Monitor renal function I's and O's and avoid nephrotoxins. Kayexalate 15gms x1 US abdomen: No hydronephrosis Renal function is improving with Cr: 1.51 from 1.81 Renal is following- Dr. Guillermo. On Lasix 20mg BID GI: On Protonix 40 mg IV daily for GI prophylaxis. On Glucerna 1.5 @ 45ml/hr Monitor LFTs. US abdomen:Nonspecific gallbladder wall thickening. Gallstones are not seen. Multiple echogenic foci seen throughout the spleen. Calcifications are not seen on the CT examination. These are of uncertain etiology. Noncalcified granulomas could still have this appearance. No hydronephrosis ID: Continue with abx (Zosyn) monitor for signs of infections( fever and WBC). Will panculture today for new fevers( Blood, sputum, urine) 09/16 blood, sputum and urine cultures: NGTD Strep pneumoniae, Legionella and urinary antigen negative Endo: SSI with Accu-Chek q6-hour for glycemic control. Heme: Monitor CBC. GI prophylaxis with Protonix 40 mg daily and DVT prophylaxis with SCD's and heparin subcu. Level 3 Sara Cotton MD Sep 19, 2016 08:08
[2016-09-19] MEDS ORDERED: SODIUM POLYSTYRENE SULFONATE SUSP 15 GM/60 ML CUP PO ONE (08:15)
--- NOTE | 2016-09-19 08:52 | PD.CARD.PN ---
Subjective Subjective Remarks on vent Objective Medications Current Medications Medications (Trade) Dose Ordered Sig/Joshua Route Start Time Stop Time Status Last Admin (NS Flush) 2 ml UNSCH PRN IVF 09/16/16 05:45 09/17/16 07:55 (NS Flush) 2 ml UNSCH PRN IVF 09/16/16 05:45 (Protonix Inj) 40 mg DAILY IV 09/16/16 09:00 09/18/16 07:57 Miscellaneous Information 1 Q361D XX 09/16/16 08:15 (Chlorhexidine 2% Cloth) 3 pack Taper DAILY@04 TOP 09/17/16 04:00 09/13/17 03:59 09/19/16 01:09 (Chlorhexidine 2% Cloth) 3 pack UNSCH PRN TOP 09/16/16 08:15 Diltiazem HCl 60 mg 60 mg QID PO 09/16/16 09:00 09/18/16 19:35 (Zosyn 4.5 Gm Premix) 100 ml @ 200 mls/hr Q8H IV 09/16/16 08:15 09/19/16 01:07 (D50w (Vial) Inj) 50 ml UNSCH PRN IV 09/16/16 08:15 (Glucagon Inj) 1 mg UNSCH PRN OTHER 09/16/16 08:15 (Heparin Inj) 5,000 units Q12HR SQ 09/16/16 21:00 09/18/16 19:35 (NovoLIN R SUPPLEMENTAL SCALE) 1 Q4H SQ 09/16/16 12:30 09/16/16 16:30 Chlorhexidine Gluconate 15 ml 15 ml BID@08,20 MT 09/18/16 08:00 09/18/16 19:36 Propofol 100 ml @ 0 mls/hr TITRATE IV 09/18/16 00:00 (fentaNYL DRIP) 250 ml @ 0 mls/hr TITRATE IV 09/18/16 00:00 09/19/16 05:37 (Lasix Inj) 20 mg BID@09,18 IV PUSH 09/18/16 18:00 09/18/16 16:58 (Aspirin Chew) 81 mg DAILY PO 09/18/16 09:45 09/18/16 10:54 (Tylenol) 650 mg Q4H PRN PO 09/18/16 23:45 09/19/16 03:37 Vital Signs / I&O Vital Signs Date Time Temp Pulse Resp B/P Pulse Ox O2 Delivery O2 Flow Rate FiO2 09/19/16 07:38 98 40 09/19/16 06:00 84 09/19/16 05:22 14 09/19/16 05:00 85 14 132/70 95 09/19/16 05:00 85 09/19/16 04:30 84 09/19/16 04:30 84 14 131/59 94 09/19/16 04:01 99 40 09/19/16 04:00 100.3 86 14 132/66 97 09/19/16 04:00 40 09/19/16 04:00 86 09/19/16 03:30 86 09/19/16 03:30 86 14 136/62 97 09/19/16 03:00 88 14 136/61 97 09/19/16 03:00 88 09/19/16 02:30 91 14 132/66 97 09/19/16 02:30 91 09/19/16 02:00 89 09/19/16 02:00 89 14 137/85 97 09/19/16 01:21 97 45 09/19/16 01:00 96 14 136/66 97 09/19/16 01:00 96 09/19/16 00:30 96 14 130/61 96 09/19/16 00:30 96 09/19/16 00:00 45 09/19/16 00:00 101.0 97 14 131/62 96 09/19/16 00:00 97 09/18/16 23:30 97 09/18/16 23:30 97 14 134/71 96 09/18/16 23:00 99 14 131/73 97 09/18/16 23:00 99 09/18/16 22:30 99 09/18/16 22:30 99 14 142/89 96 09/18/16 22:16 95 45 09/18/16 22:00 99 14 128/64 96 09/18/16 22:00 99 09/18/16 21:30 99 09/18/16 21:30 99 14 122/59 94 09/18/16 21:00 98 09/18/16 21:00 98 14 122/57 95 09/18/16 20:36 99 09/18/16 20:36 99 14 135/60 95 09/18/16 20:00 45 09/18/16 20:00 101.0 111 14 132/60 98 09/18/16 20:00 111 09/18/16 19:54 95 45 09/18/16 19:30 114 14 115/61 96 09/18/16 19:30 114 09/18/16 19:15 94 14 110/58 96 09/18/16 19:15 94 09/18/16 19:00 115 09/18/16 19:00 115 13 115/66 95 09/18/16 18:45 116 14 150/61 94 09/18/16 18:30 120 15 146/64 97 09/18/16 18:15 96 14 129/61 95 09/18/16 18:00 96 09/18/16 18:00 95 14 124/59 96 09/18/16 17:45 94 14 128/63 96 09/18/16 17:30 93 14 126/62 95 09/18/16 17:15 93 13 115/61 95 09/18/16 17:02 93 14 117/60 96 09/18/16 17:00 96 14 104/54 96 09/18/16 16:00 45 09/18/16 16:00 90 09/18/16 16:00 99.6 90 15 139/62 95 09/18/16 15:38 97 45 09/18/16 14:00 91 09/18/16 12:00 86 09/18/16 12:00 50 09/18/16 12:00 99.2 86 11 120/58 95 09/18/16 11:25 94 50 09/18/16 10:00 74 09/18/16 09:44 50 09/18/16 09:44 96 50 09/18/16 09:00 50 I/O 09/18/16 09/18/16 09/18/16 09/19/16 09/19/16 09/19/16 07:00 15:00 23:00 07:00 15:00 23:00 Intake Total 151 ml 317 ml 514 ml 368 ml Output Total 715 ml 500 ml 1575 ml 850 ml Balance -564 ml -183 ml -1061 ml -482 ml Intake Oral 0 ml IV Total 151 ml 271 ml 209 ml 101 ml Tube Feeding 46 ml 305 ml 267 ml Output Urine Total 715 ml 500 ml 1575 ml 850 ml # Bowel Movements 0 0 0 1 Physical Exam On vent Chest decreased BS CV S1S2 RRR Ext adequate perfused. No edema Laboratory Laboratory Tests Test 09/18/16 09/19/16 14:54 05:18 Complement C3 111 MG/DL Complement C4 52 MG/DL White Blood Count 9.6 TH/MM3 Red Blood Count 4.89 MIL/MM3 Hemoglobin 13.0 GM/DL Hematocrit 39.7 % Mean Corpuscular Volume 81.2 FL Mean Corpuscular Hemoglobin 26.5 PG Mean Corpuscular Hemoglobin 32.6 % Concent Red Cell Distribution Width 14.4 % Platelet Count 193 TH/MM3 Mean Platelet Volume 9.6 FL Neutrophils (%) (Auto) 73.4 % Lymphocytes (%) (Auto) 11.7 % Monocytes (%) (Auto) 13.8 % Eosinophils (%) (Auto) 0.9 % Basophils (%) (Auto) 0.2 % Neutrophils # (Auto) 7.1 TH/MM3 Lymphocytes # (Auto) 1.1 TH/MM3 Monocytes # (Auto) 1.3 TH/MM3 Eosinophils # (Auto) 0.1 TH/MM3 Basophils # (Auto) 0.0 TH/MM3 CBC Comment DIFF FINAL Differential Comment Sodium Level 144 MEQ/L Potassium Level 5.3 MEQ/L Chloride Level 107 MEQ/L Carbon Dioxide Level 31.7 MEQ/L Anion Gap 5 MEQ/L Blood Urea Nitrogen 38 MG/DL Creatinine 1.59 MG/DL Estimat Glomerular Filtration 56 ML/MIN Rate Random Glucose 121 MG/DL Calcium Level 8.5 MG/DL Total Bilirubin 0.9 MG/DL Aspartate Amino Transf 158 U/L (AST/SGOT) Alanine Aminotransferase 80 U/L (ALT/SGPT) Alkaline Phosphatase 80 U/L Total Protein 6.6 GM/DL Albumin 2.5 GM/DL 25-Hydroxy Vitamin D Total 9.0 ng/ML Imaging Last 48 hours Impressions Chest X-Ray 09/18/16 0000 Signed Impressions: Service Date/Time: August 00:21 - CONCLUSION: 1. Bilateral infiltrates developing, probably pulmonary edema related. 2. Unchanged mild cardiomegaly. 3. Endotracheal tube tip is about 3.5 cm above the viktor. Marcos Simpson MD Assessment and Plan Problem List: (1) Non-compliance (2) Cardiomyopathy Assessment and Plan: Probably combination of HTN and cocaine (LVH/LVS on EKG) (3) Acute kidney insufficiency (4) Endotracheally intubated (5) Systolic CHF, acute Assessment and Plan: Lasix added (6) Cocaine abuse Assessment and Plan: not on beta abby Assessment and Plan Cardiology to F/U prn. Please call if questions Suman Mahajan MD Sep 19, 2016 08:52
[2016-09-19] MEDS: DILTIAZEM HCL 60 MG TAB PO SCH ×4 (09:12→20:30)
[2016-09-19] MEDS: ASPIRIN 81 MG CHEW TAB PO SCH (09:12)
[2016-09-19] MEDS: HEPARIN SODIUM - SQ 10,000 UNITS/ML VIAL SQ SCH ×2 (09:13→20:32)
[2016-09-19] MEDS: PANTOPRAZOLE SODIUM 40 MG VIAL IV SCH (09:13)
[2016-09-19] MEDS: FUROSEMIDE 20 MG/2 ML VIAL IV PUSH SCH ×2 (09:13→18:00)
--- NOTE | 2016-09-19 09:39 | HHI.NPPN ---
Subjective History of Present Illness According to the records I reviewed the patient apparently had been expressing some shortness of breath for a few days prior to this admission subsequently use cocaine developed increasing shortness of breath. Was seen by EMS subsequently PEA arrest and had to be resuscitated. On presentation creatinine was 1.9 to be in of 21. Blood pressure was 200/106. Echocardiogram this admission has revealed an ejection fraction of 35%. There is also a history of diabetes mellitus and hepatitis C. Noncompliance by previous records with the patient leaving the hospital against medical advice in the past. Patient is a poor historian with poor insight into his medical issues. Interval History Pt self extubated this AM. Yelling, spitting, head-butting (Luisana Reza) Review of Systems General General Remarks Clinical condition makes ROS not obtainable (Luisana Reza) Objective Data Data 09/18/16 09/19/16 19:00 07:00 Intake Total 317 ml 882 ml Output Total 500 ml 2425 ml Balance -183 ml -1543 ml Intake Oral 0 ml IV Total 271 ml 310 ml Tube Feeding 46 ml 572 ml Output Urine Total 500 ml 2425 ml # Bowel Movements 0 1 Vital Signs Date Time Temp Pulse Resp B/P Pulse Ox O2 Delivery O2 Flow Rate FiO2 09/19/16 08:00 40 09/19/16 07:38 98 40 09/19/16 06:00 84 09/19/16 05:22 14 09/19/16 05:00 85 14 132/70 95 09/19/16 05:00 85 09/19/16 04:30 84 09/19/16 04:30 84 14 131/59 94 09/19/16 04:01 99 40 09/19/16 04:00 100.3 86 14 132/66 97 09/19/16 04:00 40 09/19/16 04:00 86 09/19/16 03:30 86 09/19/16 03:30 86 14 136/62 97 09/19/16 03:00 88 14 136/61 97 09/19/16 03:00 88 09/19/16 02:30 91 14 132/66 97 09/19/16 02:30 91 09/19/16 02:00 89 09/19/16 02:00 89 14 137/85 97 6/23/17 01:21 97 45 09/19/16 01:00 96 14 136/66 97 09/19/16 01:00 96 09/19/16 00:30 96 14 130/61 96 09/19/16 00:30 96 09/19/16 00:00 45 09/19/16 00:00 101.0 97 14 131/62 96 09/19/16 00:00 97 09/18/16 23:30 97 09/18/16 23:30 97 14 134/71 96 09/18/16 23:00 99 14 131/73 97 17 23:00 99 09/18/16 22:30 99 09/18/16 22:30 99 14 142/89 96 09/18/16 22:16 95 45 09/18/16 22:00 99 14 128/64 96 09/18/16 22:00 99 09/18/16 21:30 99 09/18/16 21:30 99 14 122/59 94 09/18/16 21:00 98 09/18/16 21:00 98 14 122/57 95 09/18/16 20:36 99 17 20:36 99 14 135/60 95 09/18/16 20:00 45 09/18/16 20:00 101.0 111 14 132/60 98 09/18/16 20:00 111 09/18/16 19:54 95 45 09/18/16 19:30 114 14 115/61 96 09/18/16 19:30 114 09/18/16 19:15 94 14 110/58 96 09/18/16 19:15 94 09/18/16 19:00 115 09/18/16 19:00 115 13 115/66 95 17 18:45 116 14 150/61 94 17 18:30 120 15 146/64 97 17 18:15 96 14 129/61 95 17 18:00 96 09/18/16 18:00 95 14 124/59 96 17 17:45 94 14 128/63 96 17 17:30 93 14 126/62 95 09/18/17 17:15 93 13 115/61 95 17 17:02 93 14 117/60 96 17 17:00 96 14 104/54 96 09/18/16 16:00 45 09/18/16 16:00 90 09/18/16 16:00 99.6 90 15 139/62 95 09/18/16 15:38 97 45 09/18/16 14:00 91 09/18/16 12:00 86 09/18/16 12:00 50 09/18/16 12:00 99.2 86 11 120/58 95 09/18/16 11:25 94 50 09/18/16 10:00 74 09/18/16 09:44 50 09/18/16 09:44 96 50 (Luisana Reza) -: 09/19/16 0518 09/19/16 0518 Imaging Last Impressions Chest X-Ray 09/18/16 0000 Signed Impressions: Service Date/Time: August 00:21 - CONCLUSION: 1. Bilateral infiltrates developing, probably pulmonary edema related. 2. Unchanged mild cardiomegaly. 3. Endotracheal tube tip is about 3.5 cm above the viktor. Marcos Simpson MD Chest CT 09/16/16 0640 Signed Impressions: Service Date/Time: Friday, September 16, 2016 09:33 - CONCLUSION: 1. Diffuse bilateral consolidation likely pulmonary edema. 2. Cardiomegaly. 3. Tiny bilateral pleural effusions. 4. A 7 x 6 mm nodule right upper lobe. Followup CT chest in 3 months recommended for stability. Alirio Banegas MD Head CT 09/16/16 0637 Signed Impressions: Service Date/Time: Friday, September 16, 2016 09:28 - CONCLUSION: 1. Nonspecific white matter changes. 2. No intraparenchymal hemorrhage or midline shift Alirio Banegas MD Abdomen Ultrasound 09/16/16 0000 Signed Impressions: Service Date/Time: Friday, September 16, 2016 14:42 - CONCLUSION: 1. Nonspecific gallbladder wall thickening. Gallstones are not seen. 2. Bilateral mild pleural effusions. 3. Multiple echogenic foci seen throughout the spleen. Calcifications are not seen on the CT examination. These are of uncertain etiology. Noncalcified granulomas could still have this appearance. Marcos Winter MD Medication Review Current Medications Medications (Trade) Dose Ordered Sig/Joshua Route Start Time Stop Time Status Last Admin (NS Flush) 2 ml UNSCH PRN IVF 09/16/16 05:45 09/17/16 07:55 (NS Flush) 2 ml UNSCH PRN IVF 09/16/16 05:45 (Protonix Inj) 40 mg DAILY IV 09/16/16 09:00 09/19/16 09:13 Miscellaneous Information 1 Q361D XX 09/16/16 08:15 (Chlorhexidine 2% Cloth) 3 pack Taper DAILY@04 TOP 09/17/16 04:00 09/13/17 03:59 09/19/16 01:09 (Chlorhexidine 2% Cloth) 3 pack UNSCH PRN TOP 09/16/16 08:15 Diltiazem HCl 60 mg 60 mg QID PO 09/16/16 09:00 09/19/16 09:12 (Zosyn 4.5 Gm Premix) 100 ml @ 200 mls/hr Q8H IV 09/16/16 08:15 09/19/16 09:13 (D50w (Vial) Inj) 50 ml UNSCH PRN IV 09/16/16 08:15 (Glucagon Inj) 1 mg UNSCH PRN OTHER 09/16/16 08:15 (Heparin Inj) 5,000 units Q12HR SQ 09/16/16 21:00 09/19/16 09:13 (NovoLIN R SUPPLEMENTAL SCALE) 1 Q4H SQ 09/16/16 12:30 09/16/16 16:30 Chlorhexidine Gluconate 15 ml 15 ml BID@08,20 MT 09/18/16 08:00 09/19/16 08:00 (fentaNYL DRIP) 250 ml @ 0 mls/hr TITRATE IV 09/18/16 00:00 09/19/16 05:37 (Lasix Inj) 20 mg BID@09,18 IV PUSH 09/18/16 18:00 09/19/16 09:13 (Aspirin Chew) 81 mg DAILY PO 09/18/16 09:45 09/19/16 09:12 (Tylenol) 650 mg Q4H PRN PO 09/18/16 23:45 09/19/16 03:37 (Luisana Reza) Physical Exam General Appearance: Anxious, Malnourished (Luisana Reza) Eyes Eye Exam: Sclera White (Luisana Reza) Pulmonary Resp Exam: Clear Bilaterally, Breath Sounds Equal (Luisana Reza) Cardiology CV Exam: Regular, Normal Sinus Rhythm (Luisana Reza) Gastrointestinal/Abdomen GI Exam: Soft, Non-Tender (Luisana Reza) Integumentary Skin Exam: Clear, Warm (Luisana Reza) Extremeties Extremities Exam: Trace Edema (BLE up to knees) (Luisana Reza) Neurologic Neuro Exam: Combative (Luisana Reza) Assessment/Plan Problem List: (1) Plan: Patient's renal function appears to be improving. Patient likely has a component of cardiorenal syndrome improving with diuresis. Continue diuresis as ordered by cardiology. Await hepatitis C PCR and other serological studies as ordered. Kionex given this AM for hyperkalemia Medications should be adjusted for the patient's estimated GFR if clinically indicated. Avoid agents with significant potential for nephrotoxicity possible including NSAIDs for analgesia, iodine contrast agents. Gadolinium is contraindicated if the GFR is below 30. (2) Plan: Most likely related to cocaine usage and noncompliance with hypertensive regimen. (3) Plan: Suspect that there will be little improvement in his compliance and his long-term prognosis most likely very poor. (4) Plan: Vit D low. Supplement when swallow passed (Luisana Reza) Plan The exam, history, and the medical decision-making described in the above note were completed with the assistance of the PA-C. I reviewed and agree with the findings presented. (Nadia Guillermo MD) Luisana Reza Sep 19, 2016 09:39 Nadia Guillermo MD Sep 19, 2016 17:50
--- NOTE | 2016-09-19 09:59 | RADRPT ---
EXAM DATE/TIME: 09/19/2016 09:33 [facility] COMPARISON: CHEST SINGLE AP, September 18, 2016, 0:21. INDICATIONS : Shortness of Breath MEDICAL HISTORY : unobtainable SURGICAL HISTORY : unobtainable ENCOUNTER: Subsequent ACUITY: 3 days PAIN SCORE: 0/10 LOCATION: Bilateral chest FINDINGS: The heart is enlarged. The ET tube and nasogastric tube have been removed. The lungs have cleared. Th e bony structures are grossly intact. CONCLUSION: 1. Interval removal of support equipment. The lungs have cleared. Wilmer Benavidez MD on September 19, 2016 at 9:57 Board Certified Radiologist. This report was verified electronically.
[2016-09-19 14:45] LABS: BACTERIA, URINE OCC /hpf; BLOOD, URINE MOD (NEG); GLUCOSE,URINE NEG (NEG); GRANULAR CAST, URINE 1 /lpf; HYALINE CAST, URINE 3 /lpf (RARE); KETONE, URINE TRACE mg/dL (NEG); MUCUS URINE FEW /lpf (OCC); NITRITE,URINE NEG (NEG); PH, URINE 5.5 (5.0-8.5); SQUAMOUS EPITHELIAL CELL URINE <1 /hpf (0-5); TRANSITIONAL EPI CELLS, URINE <1 /hpf; URIC ACID CRYSTALS, URINE RARE /hpf; URINE COLOR YELLOW (YELLW/STRAW)
[2016-09-19 14:46] LABS: COMMENT (UR) CATH-CULTURE IND; CULTURE IF INDICATED CATH CULTURE IND
[2016-09-19] MEDS: methylPREDNISolone SOD SUCC 40 MG/1 ML VIAL IV PUSH SCH (16:00)
[2016-09-19] MEDS ORDERED: DILTIAZEM HCL 25 MG/5 ML VIAL ONE (18:17)
[2016-09-19] MEDS ORDERED: DILTIAZEM HCL 25 MG/5 ML VIAL IV ONE (18:30)
[2016-09-20] VITALS (17 sets, daily range): BP systolic 153–183; BP diastolic 66–88; PULSE 80–95; RESP 20–31; TEMP 98.3–98.6; O2SAT 94–100
[2016-09-20] MEDS: PIPERACIL-TAZO 4.5 GM PREMIX 100 ML IV SCH ×3 (00:04→17:19)
[2016-09-20] MEDS: methylPREDNISolone SOD SUCC 40 MG/1 ML VIAL IV PUSH SCH ×3 (00:04→16:00)
[2016-09-20] MEDS: hydrALAZINE HCL 20 MG/ML VIAL IV PRN (00:04)
[2016-09-20] MEDS: RESP: ALBUTEROL 2.5 MG/IPRATROPIUM 0.5 MG NEB (SCH) NEB ×6 (00:09→20:42)
[2016-09-20] MEDS: INSULIN NovoLIN REGULAR SUPPLEMENTAL SCALE SQ SCH ×6 (00:30→19:53)
[2016-09-20] MEDS: CHLORHEXIDINE GLUCONATE 2 % 1 PACK (2 CLOTHS) TOP SCH (04:00)
[2016-09-20 07:43] LABS: AUTOMATED NEUTROPHIL # 8.8 TH/MM3 (1.8-7.7); BASOPHIL % 0.2 % (0.0-2.0); EOSINOPHIL # 0.1 TH/MM3 (0-0.4); EOSINOPHIL % 1.1 % (0.0-4.0); HEMATOCRIT 43.8 % (39.0-51.0); HEMO FLAGS DIFF FINAL; LYMPH % 3.8 % (9.0-44.0); LYMPHOCYTE # 0.4 TH/MM3 (1.0-4.8); MEAN CELL VOLUME 80.1 FL (80.0-100.0); MEAN CORPUSCULAR HGB CONC 32.4 % (32.0-36.0); MONO % 2.8 % (0.0-8.0); NEUT % 92.1 % (16.0-70.0); PLATELET COUNT 199 TH/MM3 (150-450); RED BLOOD COUNT 5.47 MIL/MM3 (4.50-5.90); RED CELL DISTRIBUTION WIDTH 14.2 % (11.6-17.2); WHITE BLOOD COUNT 9.6 TH/MM3 (4.0-11.0)
[2016-09-20 08:00] LABS: ANION GAP 10 MEQ/L (5-15); AST (GOT) 261 U/L (15-37); BICARBONATE 30.1 MEQ/L (21.0-32.0); BLOOD UREA NITROGEN 36 MG/DL (7-18); CHLORIDE 102 MEQ/L (98-107); GLOMERULAR FILTRATION RATE 85 ML/MIN (>89); MAGNESIUM 2.5 MG/DL (1.5-2.5); POTASSIUM 4.2 MEQ/L (3.5-5.1); SODIUM (NA) 142 MEQ/L (136-145)
[2016-09-20] MEDS: CHLORHEXIDINE 0.12% (ORAL KIT) 15 ML CUP MT SCH ×2 (08:00→19:50)
[2016-09-20 08:01] LABS: ALT (GPT) 108 U/L (12-78)
[2016-09-20 08:03] LABS: ALKALINE PHOSPHATASE 85 U/L (45-117)
[2016-09-20] MEDS: ASPIRIN 81 MG CHEW TAB PO SCH (09:03)
[2016-09-20] MEDS: FUROSEMIDE 20 MG/2 ML VIAL IV PUSH SCH ×2 (09:03→17:20)
[2016-09-20] MEDS: DILTIAZEM HCL 60 MG TAB PO SCH ×4 (09:03→19:55)
[2016-09-20] MEDS: HEPARIN SODIUM - SQ 10,000 UNITS/ML VIAL SQ SCH ×2 (09:03→19:50)
[2016-09-20] MEDS: PANTOPRAZOLE SODIUM 40 MG VIAL IV SCH (09:05)
--- NOTE | 2016-09-20 09:10 | HHI.CCPN ---
Subjective Remarks/Hospital Course The patient is a 51-year-old male with a past medical history of diabetes mellitus, hepatitis C, substance abuse who presented to the ED via EMS for respiratory distress and progressive worsening shortness of breath for the past several days. It got worse when he used cocaine about one hour prior to being seen by EMS crew. While he was complaining, he became unresponsive and went into PEA arrest. He was intubated with a Combitube and ACLS protocol was initiated and the patient was given one round of epi with a return of spontaneous circulation fairly quickly. He was intubated in the ER with vecuronium and placed on full mechanical ventilation. His laboratory data significant for lactic acidemia with lactic acid level 4.7, elevated BNP at 3005 and acute kidney injury with creatinine level of 1.84. His initial ABG post -intubation showed severe respiratory acidosis with a pH of 6.98, CO2 105, pAO2 96, bicarb 27, sats of 89%. After vent changes, repeat ABG showed a pH of 7.15 with a CO2 80, bicarb 27 and sats 87% on PRVC assist control mode at a rate of 22, tidal volume 450, PEEP of 10, I time 0.9, FIO2 100%. Chest x-ray post- intubation showed bilateral airspace opacities, mild cardiomegaly. The patient underwent CT scan of the brain which showed no evidence of any intraparenchymal hemorrhage or midline shift and CT scan of the chest showed diffuse bilateral consolidation likely pulmonary edema, cardiomegaly, tiny bilateral pleural effusions and 7 x 6 mm nodule in the right upper lobe. He was given Bumex 1 mg IV push in the ER along with sodium bicarb, Rocephin and azithromycin and placed on Diprivan for sedation. The patient was hypertensive on arrival with a systolic blood pressure of 180-200. 09/17 Patient is sedated with Diprivan and Fentanyl. T:99.9. Renal function worse today with Cr: 2.41 from 1.92. Tachycardic. 09/18 Patient was extubated yesterday during day but was reintubated at midnight for hypoxemia nd increase O2 requirements. Now sedated with Diprivan and Fentanyl. Renal function is improving with Cr: 1.81 from 2.41. T:100.5 09/19 Patient is sedated with Fentanyl and intubated off Diprivan. Spiked fever with T: 101.0 last night. Renal function is improving with Cr: 1.59 from 1.81 09/20 Patient was self extubated yesterday now on 4L oxygen with good sats. Afebrile. Hypertensive. Renal function is improving with Cr: 1.11 from 1.59 Objective Vital Signs Date Time Temp Pulse Resp B/P Pulse Ox O2 Delivery O2 Flow Rate FiO2 09/20/16 08:00 98.6 86 22 183/88 97 09/20/16 08:00 Nasal Cannula 4.00 09/19/16 20:37 50 Intake and Output 09/19/16 09/19/16 09/20/16 08:00 16:00 00:00 Intake Total 368 ml 100 ml Output Total 850 ml 1951 ml 1000 ml Balance -482 ml -1951 ml -900 ml Result Diagram: 09/20/16 0647 09/20/16 0647 Other Results Laboratory Tests Test 09/19/16 09/20/16 13:30 06:47 Urine Color YELLOW Urine Turbidity HAZY Urine pH 5.5 Urine Specific [place] 1.015 Urine Protein TRACE mg/dL Urine Glucose (UA) NEG mg/dL Urine Ketones TRACE mg/dL Urine Occult Blood MOD Urine Nitrite NEG Urine Bilirubin NEG Urine Urobilinogen LESS THAN 2.0 MG/DL Urine Leukocyte Esterase MOD Urine RBC 40 /hpf Urine WBC 6 /hpf Urine WBC Clumps RARE Urine Squamous Epithelial <1 /hpf Cells Urine Transitional Epithelial <1 /hpf Cells Urine Uric Acid Crystals RARE /hpf Urine Bacteria OCC /hpf Urine Hyaline Casts 3 /lpf Urine Granular Casts 1 /lpf Urine Mucus FEW /lpf Microscopic Urinalysis Comment CATH-CULTURE IND White Blood Count 9.6 TH/MM3 Red Blood Count 5.47 MIL/MM3 Hemoglobin 14.2 GM/DL Hematocrit 43.8 % Mean Corpuscular Volume 80.1 FL Mean Corpuscular Hemoglobin 26.0 PG Mean Corpuscular Hemoglobin 32.4 % Concent Red Cell Distribution Width 14.2 % Platelet Count 199 TH/MM3 Mean Platelet Volume 9.6 FL Neutrophils (%) (Auto) 92.1 % Lymphocytes (%) (Auto) 3.8 % Monocytes (%) (Auto) 2.8 % Eosinophils (%) (Auto) 1.1 % Basophils (%) (Auto) 0.2 % Neutrophils # (Auto) 8.8 TH/MM3 Lymphocytes # (Auto) 0.4 TH/MM3 Monocytes # (Auto) 0.3 TH/MM3 Eosinophils # (Auto) 0.1 TH/MM3 Basophils # (Auto) 0.0 TH/MM3 CBC Comment DIFF FINAL Differential Comment Sodium Level 142 MEQ/L Potassium Level 4.2 MEQ/L Chloride Level 102 MEQ/L Carbon Dioxide Level 30.1 MEQ/L Anion Gap 10 MEQ/L Blood Urea Nitrogen 36 MG/DL Creatinine 1.11 MG/DL Estimat Glomerular Filtration 85 ML/MIN Rate Random Glucose 157 MG/DL Calcium Level 9.1 MG/DL Phosphorus Level 3.2 MG/DL Magnesium Level 2.5 MG/DL Total Bilirubin 1.0 MG/DL Aspartate Amino Transf 261 U/L (AST/SGOT) Alanine Aminotransferase 108 U/L (ALT/SGPT) Alkaline Phosphatase 85 U/L Total Protein 7.1 GM/DL Albumin 2.6 GM/DL Imaging Last Impressions Chest X-Ray 09/19/16 0000 Signed Impressions: Service Date/Time: Monday, September 19, 2016 09:33 - CONCLUSION: 1. Interval removal of support equipment. The lungs have cleared. Wilmer Benavidez MD Chest CT 09/16/16 0640 Signed Impressions: Service Date/Time: Friday, September 16, 2016 09:33 - CONCLUSION: 1. Diffuse bilateral consolidation likely pulmonary edema. 2. Cardiomegaly. 3. Tiny bilateral pleural effusions. 4. A 7 x 6 mm nodule right upper lobe. Followup CT chest in 3 months recommended for stability. Alirio Banegas MD Head CT 09/16/16 0637 Signed Impressions: Service Date/Time: Friday, September 16, 2016 09:28 - CONCLUSION: 1. Nonspecific white matter changes. 2. No intraparenchymal hemorrhage or midline shift Alirio Banegas MD Abdomen Ultrasound 09/16/16 0000 Signed Impressions: Service Date/Time: Friday, September 16, 2016 14:42 - CONCLUSION: 1. Nonspecific gallbladder wall thickening. Gallstones are not seen. 2. Bilateral mild pleural effusions. 3. Multiple echogenic foci seen throughout the spleen. Calcifications are not seen on the CT examination. These are of uncertain etiology. Noncalcified granulomas could still have this appearance. Marcos Winter MD Objective Remarks GENERAL: Patient is 51 yo awake and alert SKIN: Warm and dry. HEAD: Normocephalic. EYES: No scleral icterus. No injection or drainage. NECK: Supple, trachea midline. No JVD or lymphadenopathy. CARDIOVASCULAR: Regular rate and rhythm without murmurs, gallops, or rubs. RESPIRATORY: Breath sounds equal bilaterally. No accessory muscle use. GASTROINTESTINAL: Abdomen soft, non-tender, nondistended. MUSCULOSKELETAL: No cyanosis, or edema. Neuro: Awake. A/P Assessment and Plan 1. Acute hypoxemic and hypercapnic respiratory failure. Extubated then intubated 09/17 2. Status post PEA arrest. 3. Acute kidney injury 4. Lactic acidemia 5. Hyperglycemia with underlying history of diabetes mellitus. 6. Pulmonary edema/Cardiomyopathy 7. Leukocytosis 8. History of hepatitis C 9. A 7 x 6 mm nodule right upper lobe. Plan Neuro: Awake and alert avoid sedatives CT brain showed no evidence of any intraparenchymal hemorrhage or mass effect. UDS + Cocaine Pulm: Wean down oxygen as grabiel keep sat >92% Bronchodilators, Solumederol 40mg Q8 CV: Monitor HR and BP and maintain MAP > 65 mmHg. On Cardizem 60mg QID, ASA 81mg daily Echo showed EF 35-40%, mod-severe MR, Mild TR cards -cherri [place] trending down Lactic acid cleared 1.0 on 09/17 : Monitor renal function I's and O's and avoid nephrotoxins. US abdomen: No hydronephrosis Renal function is improving with Cr: 1.11 today from 1.51 Renal is following- Dr. Guillermo. On Lasix 20mg BID GI: On Protonix 40 mg IV daily for GI prophylaxis. Speech eval, diet per speech Monitor LFTs. US abdomen:Nonspecific gallbladder wall thickening. Gallstones are not seen. Multiple echogenic foci seen throughout the spleen. Calcifications are not seen on the CT examination. These are of uncertain etiology. Noncalcified granulomas could still have this appearance. No hydronephrosis ID: Continue with abx (Zosyn) monitor for signs of infections( fever and WBC). Pancultured 09/19 09/16 blood, sputum and urine cultures: NGTD Strep pneumoniae, Legionella and urinary antigen negative Endo: SSI with Accu-Chek q6-hour for glycemic control. Heme: Monitor CBC. GI prophylaxis with Protonix 40 mg daily and DVT prophylaxis with SCD's and heparin subcu. Will sign off and transfer care to [facility] Level 3 Sara Cotton MD Sep 20, 2016 09:10
--- NOTE | 2016-09-20 11:34 | HHI.NPPN ---
Subjective History of Present Illness According to the records I reviewed the patient apparently had been expressing some shortness of breath for a few days prior to this admission subsequently use cocaine developed increasing shortness of breath. Was seen by EMS subsequently PEA arrest and had to be resuscitated. On presentation creatinine was 1.9 to be in of 21. Blood pressure was 200/106. Echocardiogram this admission has revealed an ejection fraction of 35%. There is also a history of diabetes mellitus and hepatitis C. Noncompliance by previous records with the patient leaving the hospital against medical advice in the past. Patient is a poor historian with poor insight into his medical issues. Interval History Pt extubated and sat'ing well. Alert and calm today. No complaints (Luisana Reza) Objective Data Data 09/19/16 09/20/16 19:00 07:00 Intake Total 200 ml Output Total 1951 ml 1480 ml Balance -1951 ml -1280 ml IV Total 200 ml Output Urine Total 1951 ml 1480 ml # Bowel Movements 1 Vital Signs Date Time Temp Pulse Resp B/P Pulse Ox O2 Delivery O2 Flow Rate FiO2 09/20/16 10:01 85 09/20/16 08:00 98.6 86 22 183/88 97 09/20/16 08:00 94 Nasal Cannula 4.00 09/20/16 08:00 85 09/20/16 06:00 81 09/20/16 05:00 83 09/20/16 04:00 88 09/20/16 04:00 98.3 88 28 156/75 97 09/20/16 03:00 85 09/20/16 03:00 85 31 153/71 96 09/20/16 02:00 85 09/20/16 02:00 85 25 157/74 100 09/20/16 01:00 84 27 163/66 95 09/20/16 01:00 84 09/20/16 00:09 85 09/20/16 00:09 85 25 168/79 95 09/20/16 00:00 98.4 90 22 176/84 96 09/20/16 00:00 90 09/19/16 23:00 90 22 171/81 91 09/19/16 23:00 90 09/19/16 22:00 93 21 176/86 96 09/19/16 22:00 93 09/19/16 21:30 90 09/19/16 21:00 94 09/19/16 21:00 94 26 179/90 96 09/19/16 20:49 97 09/19/16 20:49 97 23 175/90 98 09/19/16 20:37 96 Venturi Mask 6.00 50 09/19/16 20:00 98.2 93 21 163/80 93 09/19/16 20:00 93 09/19/16 19:00 100 09/19/16 19:00 100 27 183/92 94 09/19/16 18:23 104 29 189/99 91 09/19/16 18:00 82 09/19/16 18:00 104 27 201/114 92 09/19/16 17:00 102 25 188/103 86 09/19/16 16:00 99.0 97 18 150/70 96 09/19/16 16:00 83 09/19/16 14:00 96 09/19/16 12:00 85 09/19/16 12:00 40 09/19/16 12:00 99.5 101 14 154/75 96 (Luisana Reza) -: 09/20/16 0647 09/20/16 0647 Microbiology 09/19/16 Urine Culture - Preliminary, Resulted NO GROWTH IN 24 HOURS. 09/19/16 Gram Stain - Final, Resulted 09/19/16 Sputum Culture, Resulted Pending Medication Review Current Medications Medications (Trade) Dose Ordered Sig/Joshua Route Start Time Stop Time Status Last Admin (NS Flush) 2 ml UNSCH PRN IVF 09/16/16 05:45 09/17/16 07:55 (NS Flush) 2 ml UNSCH PRN IVF 09/16/16 05:45 (Protonix Inj) 40 mg DAILY IV 09/16/16 09:00 09/20/16 09:05 Miscellaneous Information 1 Q361D XX 09/16/16 08:15 (Chlorhexidine 2% Cloth) 3 pack Taper DAILY@04 TOP 09/17/16 04:00 09/13/17 03:59 09/20/16 04:00 (Chlorhexidine 2% Cloth) 3 pack UNSCH PRN TOP 09/16/16 08:15 Diltiazem HCl 60 mg 60 mg QID PO 09/16/16 09:00 09/20/16 09:03 (Zosyn 4.5 Gm Premix) 100 ml @ 200 mls/hr Q8H IV 09/16/16 08:15 09/20/16 09:04 (D50w (Vial) Inj) 50 ml UNSCH PRN IV 09/16/16 08:15 (Glucagon Inj) 1 mg UNSCH PRN OTHER 09/16/16 08:15 (Heparin Inj) 5,000 units Q12HR SQ 09/16/16 21:00 09/20/16 09:03 (NovoLIN R SUPPLEMENTAL SCALE) 1 Q4H SQ 09/16/16 12:30 09/16/16 16:30 (Peridex 0.12% Liq) 15 ml BID@08,20 MT 09/18/16 08:00 09/20/16 08:00 (Lasix Inj) 20 mg BID@09,18 IV PUSH 09/18/16 18:00 09/20/16 09:03 (Aspirin Chew) 81 mg DAILY PO 09/18/16 09:45 09/20/16 09:03 (Tylenol) 650 mg Q4H PRN PO 09/18/16 23:45 09/19/16 03:37 (SoluMEDROL INJ) 40 mg Q8H IV PUSH 09/19/16 16:00 09/20/16 09:03 (Apresoline Inj) 10 mg Q3H PRN IV 09/19/16 23:45 09/20/16 00:04 (Luisana Reza) Physical Exam General Appearance: No Acute Distress, Comfortable, Malnourished (Luisana Reza) Eyes Eye Exam: Sclera White (Luisana Reza) Pulmonary Resp Exam: Clear Bilaterally, Breath Sounds Equal (Luisana Reza) Cardiology CV Exam: Regular, Normal Sinus Rhythm (Luisana Reza) Gastrointestinal/Abdomen GI Exam: Soft, Non-Tender (Luisana Reza) Integumentary Skin Exam: Clear, Warm (Luisana Reza) Extremeties Extremities Exam: No Edema (Luisana Reza) Neurologic Neuro Exam: Alert, Awake (Luisana Reza) Assessment/Plan Problem List: (1) Acute kidney insufficiency Plan: SCr improving and UOP quite good. Medications should be adjusted for the patient's estimated GFR if clinically indicated. Avoid agents with significant potential for nephrotoxicity possible including NSAIDs for analgesia, iodine contrast agents. Gadolinium is contraindicated if the GFR is below 30. (2) Cardiomyopathy Plan: Most likely related to cocaine usage and noncompliance with hypertensive regimen. (3) Non-compliance Plan: Suspect that there will be little improvement in his compliance and his long-term prognosis most likely very poor. (4) Hypocalcemia Plan: Vit D ordered (Luisana Reza) Plan Patient was urine output. Creatinine level now within normal range. Patient has a positive PCR test. Recommend GI opinion if the patient has not been evaluated by GI in the past for his hepatitis C. At this point in time will see patient on a when necessary basis. The exam, history, and the medical decision-making described in the above note were completed with the assistance of the KENA. I reviewed and agree with the findings presented. I attest that I had a [id number] encounter with the patient on the same day, and personally performed and documented my assessment and findings in the medical record. (Nadia Guillermo MD) Luisana Reza Sep 20, 2016 11:34 Nadia Guillermo MD Sep 20, 2016 17:09
[2016-09-20] MEDS ORDERED: ERGOCALCIFEROL (VIT D2) 50,000 UNIT CAP PO SCH (12:00)
[2016-09-20 13:53] LABS: HCV RNA PCR LOGIU/ML 7.13 (())
[2016-09-21] VITALS (15 sets, daily range): BP systolic 143–176; BP diastolic 74–96; PULSE 73–90; RESP 20–24; TEMP 98.1–98.7; O2SAT 97–100
[2016-09-21] MEDS: INSULIN NovoLIN REGULAR SUPPLEMENTAL SCALE SQ SCH ×7 (01:07→23:44)
[2016-09-21] MEDS: methylPREDNISolone SOD SUCC 40 MG/1 ML VIAL IV PUSH SCH ×4 (01:08→23:42)
[2016-09-21] MEDS: PIPERACIL-TAZO 4.5 GM PREMIX 100 ML IV SCH ×2 (01:08→08:35)
[2016-09-21] MEDS: RESP: ALBUTEROL 2.5 MG/IPRATROPIUM 0.5 MG NEB (SCH) NEB ×5 (03:46→16:00)
[2016-09-21] MEDS: CHLORHEXIDINE GLUCONATE 2 % 1 PACK (2 CLOTHS) TOP SCH (04:00)
[2016-09-21 05:47] LABS: AUTOMATED NEUTROPHIL # 11.3 TH/MM3 (1.8-7.7); BASOPHIL % 0.1 % (0.0-2.0); EOSINOPHIL # 0.3 TH/MM3 (0-0.4); HEMATOCRIT 47.7 % (39.0-51.0); HEMO FLAGS DIFF FINAL; LYMPHOCYTE # 0.6 TH/MM3 (1.0-4.8); MEAN CELL VOLUME 79.7 FL (80.0-100.0); MEAN CORPUSCULAR HEMOGLOBIN 25.7 PG (27.0-34.0); MEAN CORPUSCULAR HGB CONC 32.3 % (32.0-36.0); MONO % 5.5 % (0.0-8.0); NEUT % 87.4 % (16.0-70.0); PLATELET COUNT 243 TH/MM3 (150-450); RED BLOOD COUNT 5.98 MIL/MM3 (4.50-5.90); RED CELL DISTRIBUTION WIDTH 13.8 % (11.6-17.2)
[2016-09-21 06:18] LABS: ALT (GPT) 175 U/L (12-78); ANION GAP 9 MEQ/L (5-15); AST (GOT) 278 U/L (15-37); BICARBONATE 31.1 MEQ/L (21.0-32.0); BLOOD UREA NITROGEN 35 MG/DL (7-18); CHLORIDE 99 MEQ/L (98-107); GLOMERULAR FILTRATION RATE 97 ML/MIN (>89); POTASSIUM 4.2 MEQ/L (3.5-5.1); SODIUM (NA) 139 MEQ/L (136-145)
[2016-09-21 06:21] LABS: ALKALINE PHOSPHATASE 89 U/L (45-117)
[2016-09-21] MEDS: CHLORHEXIDINE 0.12% (ORAL KIT) 15 ML CUP MT SCH ×2 (08:00→19:51)
[2016-09-21] MEDS: PANTOPRAZOLE SODIUM 40 MG VIAL IV SCH (08:34)
[2016-09-21] MEDS: hydrALAZINE HCL 20 MG/ML VIAL IV PRN (08:34)
[2016-09-21] MEDS: FUROSEMIDE 20 MG/2 ML VIAL IV PUSH SCH ×2 (08:35→18:23)
[2016-09-21] MEDS: DILTIAZEM HCL 60 MG TAB PO SCH ×4 (08:35→19:52)
[2016-09-21] MEDS: HEPARIN SODIUM - SQ 10,000 UNITS/ML VIAL SQ SCH ×2 (08:35→19:52)
[2016-09-21] MEDS: ASPIRIN 81 MG CHEW TAB PO SCH (08:35)
--- NOTE | 2016-09-21 10:52 | HHI.PR ---
Subjective Remarks Follow-up for respiratory failure/PEA Patient is no complaints. He denies any shortness of breathing or cough. Patient remains afebrile. Patient is very anxious to get out of bed. Dealt with patient's nurse at the bedside. Objective Vitals Vital Signs Date Time Temp Pulse Resp B/P Pulse Ox O2 Delivery O2 Flow Rate FiO2 09/21/16 08:34 98 Nasal Cannula 2.00 09/21/16 08:00 81 09/21/16 08:00 98.7 81 22 159/74 97 09/21/16 07:54 81 09/21/16 07:54 98.7 81 22 159/74 97 09/21/16 06:00 80 09/21/16 04:00 98.7 79 22 176/90 97 09/21/16 04:00 79 09/21/16 02:00 73 09/21/16 00:00 78 09/21/16 00:00 98.5 78 20 172/84 98 09/20/16 22:00 80 09/20/16 20:44 98 Nasal Cannula 3.00 09/20/16 20:00 98.5 83 20 160/77 96 09/20/16 20:00 83 09/20/16 18:00 85 09/20/16 16:00 85 09/20/16 16:00 98.6 84 22 157/82 98 09/20/16 14:00 85 09/20/16 12:00 85 09/20/16 12:00 98.6 95 22 182/84 98 I/O 09/20/16 09/20/16 09/20/16 09/21/16 09/21/16 09/21/16 07:00 15:00 23:00 07:00 15:00 23:00 Intake Total 100 ml 420 ml 356 ml 468 ml Output Total 480 ml 1400 ml 900 ml 600 ml Balance -380 ml -980 ml -544 ml -132 ml Intake Oral 320 ml 200 ml 300 ml IV Total 100 ml 100 ml 156 ml 168 ml Output Urine Total 480 ml 1400 ml 900 ml 600 ml # Bowel Movements 1 1 0 0 1 Result Diagram: 09/21/16 0453 09/21/16 0453 Objective Remarks GENERAL: in NAD CARDIOVASCULAR: Regular rate and rhythm without murmurs, gallops, or rubs. RESPIRATORY: Breath sounds equal bilaterally. No accessory muscle use. GASTROINTESTINAL: Abdomen soft, non-tender, nondistended. MUSCULOSKELETAL: No cyanosis, or edema. BACK: Nontender without obvious deformity. No CVA tenderness. Medications and IVs Current Medications Vecuronium [place] (Norcuron 10 Mg Inj) 10 mg STK-MED ONCE .ROUTE ; Start at 05:30; Stop 09/16/16 at 05:31; Status DC Sodium Chloride (NS Flush) 2 ml UNSCH PRN IVF FLUSH AFTER USING IV ACCESS Last administered on 09/17/16 07:55; Start 09/16/16 at 05:45 Vecuronium [place] (Norcuron 10 Mg Inj) 10 mg ONCE ONCE IV Last administered on 09/16/16 05:53; Start 09/16/16 at 05:45; Stop 09/16/16 at 05:46; Status DC Sodium Chloride (NS Flush) 2 ml UNSCH PRN IVF FLUSH AFTER USING IV ACCESS; Start 09/16/16 at 05:45 Propofol 100 mg 100 mg ONCE ONCE IV Last administered on 09/16/16 05:52; Start 09/16/16 at 05:45; Stop 09/16/16 at 05:46; Status DC Propofol 100 ml @ 0 mls/hr TITRATE IV Last administered on 09/17/16 10:30; Start 09/16/16 at 05:45; Stop 09/17/16 at 14:32; Status DC Ceftriaxone Sodium 2000 mg/ Sodium Chloride 100 ml @ 200 mls/hr ONCE STAT IV Last administered on 09/16/16 07:32; Start 09/16/16 at 06:17; Stop 09/16/16 at 06:46; Status DC Azithromycin/ Sodium Chloride (Zithromax Inj/ NS 250 ml Inj) 250 ml @ 250 mls/ hr ONCE STAT IV Last administered on 09/16/16 06:35; Start 09/16/16 at 06:17 ; Stop 09/16/16 at 07:16; Status DC Sodium Bicarbonate (Sodium Bicarbonate 8.4% Inj) 50 meq ONCE ONCE IV PUSH Last administered on 09/16/16 06:37; Start 09/16/16 at 06:30; Stop 09/16/16 at 06:31; Status DC Sodium Bicarbonate (Sodium Bicarbonate 8.4% Inj) 50 meq STK-MED ONCE .ROUTE ; Start 09/16/16 at 06:38; Stop 09/16/16 at 06:39; Status DC Pantoprazole Sodium (Protonix Inj) 40 mg DAILY IV Last administered on 08:34; Start 09/16/16 at 09:00 Albuterol/ Ipratropium (Duoneb Neb) 1 ampule Q6HR NEB INH Last administered on 09/17/16 07:40; Start 09/16/16 at 10:00; Stop 09/17/16 at 14:35; Status DC Miscellaneous Information 1 Q361D XX ; Start 09/16/16 at 08:15 Chlorhexidine Gluconate (Chlorhexidine 2% Cloth) 3 pack Taper DAILY@04 TOP Last administered on 09/21/16 04:00; Start 09/17/16 at 04:00; Stop 09/13/17 at 03:59 Chlorhexidine Gluconate (Chlorhexidine 2% Cloth) 3 pack UNSCH PRN TOP HYGIENIC CARE; Start 09/16/16 at 08:15 Diltiazem HCl (Cardizem Inj) 10 mg ONCE ONCE IV Last administered on 08:28; Start 09/16/16 at 08:15; Stop 09/16/16 at 08:16; Status DC Diltiazem HCl (Cardizem) 60 mg QID PO Last administered on 09/21/16 08:35; Start 09/16/16 at 09:00 Bumetanide 1 mg 1 mg ONCE ONCE IV PUSH Last administered on 09/16/16 08:28; Start 09/16/16 at 09:00; Stop 09/16/16 at 09:01; Status DC Piperacillin Sod/ Tazobactam Sod (Zosyn 4.5 Gm Premix) 100 ml @ 200 mls/hr Q8H IV Last administered on 09/21/16 08:35; Start 09/16/16 at 08:15 Dextrose (D50w (Vial) Inj) 50 ml UNSCH PRN IV HYPOGLYCEMIA-SEE COMMENTS; Start 09/16/16 at 08:15 Glucagon (Glucagon Inj) 1 mg UNSCH PRN OTHER HYPOGLYCEMIA-SEE COMMENTS; Start 09/16/16 at 08:15 Insulin Human Regular 1 1 Q6H SQ ; Start 09/16/16 at 09:00; Stop 09/16/16 at 12: 27; Status DC Fentanyl Citrate (fentaNYL DRIP) 250 ml @ 0 mls/hr TITRATE IV Last administered on 09/17/16 05:59; Start 09/16/16 at 10:30; Stop 09/17/16 at 14:32 ; Status DC Diltiazem HCl (Cardizem Inj) 10 mg ONCE ONCE IV Last administered on 10:50; Start 09/16/16 at 10:30; Stop 09/16/16 at 10:32; Status DC Bumetanide (Bumex Inj) 1 mg ONCE ONCE IV PUSH Last administered on 09/16/16 10:50; Start 09/16/16 at 10:30; Stop 09/16/16 at 10:31; Status DC Heparin Sodium (Porcine) (Heparin Inj) 5,000 units Q12HR SQ Last administered on 09/21/16 08:35; Start 09/16/16 at 21:00 Glucagon (Glucagon Inj) 1 mg UNSCH PRN OTHER HYPOGLYCEMIA-SEE COMMENTS; Start 09/16/16 at 12:30; Status Cancel Insulin Human Regular 1 1 Q4H SQ Last administered on 09/21/16 04:54; Start at 12:30 Calcium Gluconate/ Sodium Chloride (Calcium Gluconate Inj/NS Inj) 110 ml @ 110 mls/hr ONCE ONCE IV Last administered on 09/16/16 16:58; Start 09/16/16 at 16 :00; Stop 09/16/16 at 16:59; Status DC Aspirin 325 mg 325 mg ONCE ONCE PO Last administered on 09/16/16 16:55; Start 09/16/16 at 14:15; Stop 09/16/16 at 14:16; Status DC Calcium Gluconate/ Sodium Chloride (Calcium Gluconate Inj/NS Inj) 110 ml @ 110 mls/hr ONCE ONCE IV Last administered on 09/17/16 10:41; Start 09/17/16 at 07 :00; Stop 09/17/16 at 07:59; Status DC Diltiazem HCl (Cardizem Inj) 10 mg ONCE ONCE IV Last administered on 07:55; Start 09/17/16 at 07:30; Stop 09/17/16 at 07:31; Status DC Albuterol/ Ipratropium (Duoneb Neb) 1 ampule Q4HR NEB NEB Last administered on 09/20/16 20:42; Start 09/17/16 at 16:00 Albuterol/ Ipratropium 1 ampule 1 ampule Q2HR NEB PRN NEB SHORTNESS OF BREATH; Start 09/17/16 at 14:30 Cefazolin Sodium/ Dextrose (Ancef 2 Gm Premix) 50 ml @ As Directed STK-MED ONCE .ROUTE ; Start 09/17/16 at 19:04; Stop 09/17/16 at 19:05; Status DC Labetalol HCl (Trandate) 200 mg Q8H PO ; Start 09/18/16 at 00:00; Stop 09/18/16 at 00:00; Status DC Labetalol HCl (Trandate Inj) 20 mg Q2H PRN IV FOR SBP > 160 Last administered on 09/17/16 22:44; Start 09/17/16 at 22:45; Stop 09/17/16 at 23:56; Status DC Midazolam HCl (Versed Inj) 10 mg STK-MED ONCE .ROUTE Last administered on 00:41; Start 09/17/16 at 23:49; Stop 09/17/16 at 23:50; Status DC Rocuronium [place] (Zemuron Inj) 100 mg STK-MED ONCE .ROUTE ; Start 09/17/16 at 23:51; Stop 09/17/16 at 23:52; Status DC Chlorhexidine Gluconate 15 ml 15 ml BID@08,20 MT Last administered on 08:00; Start 09/18/16 at 08:00 Propofol 100 ml @ 0 mls/hr TITRATE IV ; Start 09/18/16 at 00:00; Stop 09/19/16 at 09:35; Status DC Fentanyl Citrate (fentaNYL DRIP) 250 ml @ 0 mls/hr TITRATE IV Last administered on 09/19/16 05:37; Start 09/18/16 at 00:00; Stop 09/19/16 at 09:36 ; Status DC Rocuronium [place] (Zemuron Inj) 50 mg NOW IV Last administered on 09/18/16 01 :14; Start 09/18/16 at 00:30; Stop 09/18/16 at 01:05; Status DC Furosemide (Lasix Inj) 20 mg BID@09,18 IV PUSH Last administered on 09/21/16 08:35; Start 09/18/16 at 18:00 Aspirin (Aspirin Chew) 81 mg DAILY PO Last administered on 09/21/16 08:35; Start 09/18/16 at 09:45 Acetaminophen (Tylenol) 650 mg Q4H PRN PO PAIN 1-10/ FEVER > 101 Last administered on 09/19/16 03:37; Start 09/18/16 at 23:45 Sodium Polystyrene Sulfonate (Kayexalate Liq) 15 gm ONCE ONCE PO Last administered on 09/19/16 09:16; Start 09/19/16 at 08:15; Stop 09/19/16 at 08:16 ; Status DC Methylprednisolone Sodium Succinate (SoluMEDROL INJ) 40 mg Q8H IV PUSH Last administered on 09/21/16 08:34; Start 09/19/16 at 16:00 Diltiazem HCl (Cardizem Inj) 25 mg STK-MED ONCE .ROUTE ; Start 09/19/16 at 18:17 ; Stop 09/19/16 at 18:18; Status DC Diltiazem HCl (Cardizem Inj) 10 mg ONCE ONCE IV Last administered on 20:29; Start 09/19/16 at 18:30; Stop 09/19/16 at 18:31; Status DC Hydralazine HCl (Apresoline Inj) 10 mg Q3H PRN IV PRN FOR SYSTOLIC BP >160 Last administered on 09/21/16 08:34; Start 09/19/16 at 23:45 Ergocalciferol (Drisdol) 50,000 units Q7D PO Last administered on 09/20/16 12: 54; Start 09/20/16 at 12:00 A/P Assessment and Plan Acute hypoxemic and hypercapnic respiratory failure. -Status post PEA arrest -Most likely secondary to cocaine use. -Patient on Solu-Medrol. Will wean as tolerated. -Patient was intubated on 09/17 and self extubated on 09/19 Altered mental status -Secondary to PEA arrest -Resolved. - CT brain showed no evidence of any intraparenchymal hemorrhage or mass effect. UDS + Cocaine -Patient treated empirically for infection. -on abx (Zosyn) monitor for signs of infections( fever and WBC). Pancultured . 09/16 blood, sputum and urine cultures: NGTD. Strep pneumoniae, Legionella and urinary antigen negative. -Workup has been negative for any infection. We'll discontinue Zosyn and monitor off antibiotics. Acute kidney injury -Secondary to PEA arrest due to cocaine use. -Resolved. Pulmonary edema/Cardiomyopathy/acute systolic CHF/hypertension -Most likely due to cocaine use and hypertension. -Patient is on Cardizem and aspirin. Patient is also on Lasix. - Echo showed EF 35-40%, mod-severe MR, Mild TR History of hepatitis C -Noncompliant. -US abdomen:Nonspecific gallbladder wall thickening. Gallstones are not seen. Multiple echogenic foci seen throughout the spleen. Calcifications are not seen on the CT examination. These are of uncertain etiology. Noncalcified granulomas could still have this appearance. No hydronephrosis -Currently using cocaine so not a candidate for treatment. -Follow-up as outpatient. A 7 x 6 mm nodule right upper lobe. -Patient will need a follow-up CT scan of the chest in 3 months to monitor for stability. GI prophylaxis with Protonix 40 mg daily and DVT prophylaxis with SCD's and heparin SQ. Tomasa Welsh MD Sep 21, 2016 10:52
[2016-09-22] VITALS (7 sets, daily range): BP systolic 128–186; BP diastolic 84–91; PULSE 76–86; RESP 19–26; TEMP 98.5–98.8; O2SAT 96–100
[2016-09-22] MEDS: CHLORHEXIDINE GLUCONATE 2 % 1 PACK (2 CLOTHS) TOP SCH (04:00)
[2016-09-22] MEDS: INSULIN NovoLIN REGULAR SUPPLEMENTAL SCALE SQ SCH (05:15)
[2016-09-22 05:56] LABS: MEAN CORPUSCULAR HEMOGLOBIN 25.7 PG (27.0-34.0); MEAN CORPUSCULAR HGB CONC 32.1 % (32.0-36.0); PLATELET COUNT 251 TH/MM3 (150-450); RED BLOOD COUNT 6.38 MIL/MM3 (4.50-5.90); RED CELL DISTRIBUTION WIDTH 13.8 % (11.6-17.2); REVIEW FLAG FINAL; WHITE BLOOD COUNT 14.2 TH/MM3 (4.0-11.0)
[2016-09-22 06:26] LABS: BICARBONATE 29.2 MEQ/L (21.0-32.0); POTASSIUM 4.1 MEQ/L (3.5-5.1)
[2016-09-22] MEDS: CHLORHEXIDINE 0.12% (ORAL KIT) 15 ML CUP MT SCH (08:00)
--- NOTE | 2016-09-22 09:42 | HHI.NPPN ---
Subjective History of Present Illness According to the records I reviewed the patient apparently had been expressing some shortness of breath for a few days prior to this admission subsequently use cocaine developed increasing shortness of breath. Was seen by EMS subsequently PEA arrest and had to be resuscitated. On presentation creatinine was 1.9 to be in of 21. Blood pressure was 200/106. Echocardiogram this admission has revealed an ejection fraction of 35%. There is also a history of diabetes mellitus and hepatitis C. Noncompliance by previous records with the patient leaving the hospital against medical advice in the past. Patient is a poor historian with poor insight into his medical issues. Interval History Pt feeling much better No verbal complaints. Would like to have Polanco removed Objective Data Data 09/21/16 09/22/16 19:00 07:00 Intake Total 480 ml 500 ml Output Total 1850 ml 1450 ml Balance -1370 ml -950 ml Intake Oral 380 ml 500 ml IV Total 100 ml 0 ml Output Urine Total 1850 ml 1450 ml # Bowel Movements 3 0 Vital Signs Date Time Temp Pulse Resp B/P Pulse Ox O2 Delivery O2 Flow Rate FiO2 09/22/16 09:11 86 19 128/84 100 09/22/16 08:54 97 Nasal Cannula 2.00 09/22/16 08:00 98.8 85 24 181/89 99 09/22/16 06:00 83 09/22/16 04:00 98.5 79 26 166/87 96 09/22/16 04:00 79 09/22/16 02:00 76 09/22/16 00:00 83 09/22/16 00:00 98.6 83 22 186/91 100 09/21/16 22:00 82 09/21/16 20:00 98.7 86 24 143/79 100 09/21/16 20:00 86 09/21/16 19:44 100 21 09/21/16 18:00 81 09/21/16 16:00 98.1 75 22 161/81 97 09/21/16 16:00 81 09/21/16 14:00 81 09/21/16 12:00 98.7 90 22 156/96 97 09/21/16 12:00 81 09/21/16 10:00 81 -: 09/22/16 0500 09/22/16 0500 Imaging Last Impressions Chest X-Ray 09/19/16 0000 Signed Impressions: Service Date/Time: Monday, September 19, 2016 09:33 - CONCLUSION: 1. Interval removal of support equipment. The lungs have cleared. Wilmer Benavidez MD Chest CT 09/16/16 0640 Signed Impressions: Service Date/Time: Friday, September 16, 2016 09:33 - CONCLUSION: 1. Diffuse bilateral consolidation likely pulmonary edema. 2. Cardiomegaly. 3. Tiny bilateral pleural effusions. 4. A 7 x 6 mm nodule right upper lobe. Followup CT chest in 3 months recommended for stability. Alirio Banegas MD Head CT 09/16/16 0637 Signed Impressions: Service Date/Time: Friday, September 16, 2016 09:28 - CONCLUSION: 1. Nonspecific white matter changes. 2. No intraparenchymal hemorrhage or midline shift Alirio Banegas MD Abdomen Ultrasound 09/16/16 0000 Signed Impressions: Service Date/Time: Friday, September 16, 2016 14:42 - CONCLUSION: 1. Nonspecific gallbladder wall thickening. Gallstones are not seen. 2. Bilateral mild pleural effusions. 3. Multiple echogenic foci seen throughout the spleen. Calcifications are not seen on the CT examination. These are of uncertain etiology. Noncalcified granulomas could still have this appearance. Marcos Winter MD Medication Review Current Medications Medications (Trade) Dose Ordered Sig/Joshua Route Start Time Stop Time Status Last Admin (NS Flush) 2 ml UNSCH PRN IVF 09/16/16 05:45 09/17/16 07:55 (NS Flush) 2 ml UNSCH PRN IVF 09/16/16 05:45 (Protonix Inj) 40 mg DAILY IV 09/16/16 09:00 09/21/16 08:34 Miscellaneous Information 1 Q361D XX 09/16/16 08:15 (Chlorhexidine 2% Cloth) Taper DAILY@04 TOP 09/17/16 04:00 09/13/17 03:59 09/22/16 04:00 (Chlorhexidine 2% Cloth) 3 pack UNSCH PRN TOP 09/16/16 08:15 (Cardizem) 60 mg QID PO 09/16/16 09:00 09/21/16 18:23 (D50w (Vial) Inj) 50 ml UNSCH PRN IV 09/16/16 08:15 (Glucagon Inj) 1 mg UNSCH PRN OTHER 09/16/16 08:15 (Heparin Inj) 5,000 units Q12HR SQ 09/16/16 21:00 09/21/16 19:52 (NovoLIN R SUPPLEMENTAL SCALE) 1 Q4H SQ 09/16/16 12:30 09/22/16 05:15 (Peridex 0.12% Liq) 15 ml BID@08,20 MT 09/18/16 08:00 09/21/16 19:51 (Lasix Inj) 20 mg BID@09,18 IV PUSH 09/18/16 18:00 09/21/16 18:23 (Aspirin Chew) 81 mg DAILY PO 09/18/16 09:45 09/21/16 08:35 (Tylenol) 650 mg Q4H PRN PO 09/18/16 23:45 09/19/16 03:37 (SoluMEDROL INJ) 40 mg Q8H IV PUSH 09/19/16 16:00 09/21/16 23:42 (Apresoline Inj) 10 mg Q3H PRN IV 09/19/16 23:45 09/21/16 08:34 (Drisdol) 50,000 units Q7D PO 09/20/16 12:00 09/20/16 12:54 Physical Exam General Appearance: No Acute Distress, Comfortable, Malnourished Eyes Eye Exam: Sclera White Pulmonary Resp Exam: Clear Bilaterally, Breath Sounds Equal Cardiology CV Exam: Regular, Normal Sinus Rhythm Gastrointestinal/Abdomen GI Exam: Soft, Non-Tender Integumentary Skin Exam: Clear, Warm Extremeties Extremities Exam: No Edema Neurologic Neuro Exam: Alert, Awake Assessment/Plan Problem List: (1) Acute kidney insufficiency Plan: Renal indices are now normal. Change IV Lasix to po. D/C Polanco At this time, we will see the patient PRN. Please recall if needed Medications should be adjusted for the patient's estimated GFR if clinically indicated. Avoid agents with significant potential for nephrotoxicity possible including NSAIDs for analgesia, iodine contrast agents. Gadolinium is contraindicated if the GFR is below 30. (2) Cardiomyopathy Plan: Most likely related to cocaine usage and noncompliance with hypertensive regimen. (3) Non-compliance Plan: Suspect that there will be little improvement in his compliance and his long-term prognosis most likely very poor. (4) Hypocalcemia Plan: Vit D ordered (5) Hepatitis C Luisana Reza Sep 22, 2016 09:42
[2016-09-22] MEDS: DILTIAZEM HCL 60 MG TAB PO SCH (09:50)
[2016-09-22] MEDS: methylPREDNISolone SOD SUCC 40 MG/1 ML VIAL IV PUSH SCH ×2 (09:50→09:55)
[2016-09-22] MEDS: PANTOPRAZOLE SODIUM 40 MG VIAL IV SCH (09:50)
[2016-09-22] MEDS: HEPARIN SODIUM - SQ 10,000 UNITS/ML VIAL SQ SCH (09:50)
[2016-09-22] MEDS: ASPIRIN 81 MG CHEW TAB PO SCH (09:51)
[2016-09-22] MEDS ORDERED: INSULIN ASPART SUPPLEMENTAL SCALE SQ SCH (11:00)
--- NOTE | 2016-09-22 11:34 | PD.CARD.PN ---
Subjective Subjective Remarks No CV complaints Objective Medications Current Medications Medications (Trade) Dose Ordered Sig/Joshua Route Start Time Stop Time Status Last Admin (NS Flush) 2 ml UNSCH PRN IVF 09/16/16 05:45 09/17/16 07:55 (NS Flush) 2 ml UNSCH PRN IVF 09/16/16 05:45 (Protonix Inj) 40 mg DAILY IV 09/16/16 09:00 09/22/16 09:50 Miscellaneous Information 1 Q361D XX 09/16/16 08:15 (Chlorhexidine 2% Cloth) Taper DAILY@04 TOP 09/17/16 04:00 09/13/17 03:59 09/22/16 04:00 (Chlorhexidine 2% Cloth) 3 pack UNSCH PRN TOP 09/16/16 08:15 (Cardizem) 60 mg QID PO 09/16/16 09:00 09/22/16 09:50 (D50w (Vial) Inj) 50 ml UNSCH PRN IV 09/16/16 08:15 (Glucagon Inj) 1 mg UNSCH PRN OTHER 09/16/16 08:15 (Heparin Inj) 5,000 units Q12HR SQ 09/16/16 21:00 09/22/16 09:50 (Peridex 0.12% Liq) 15 ml BID@08,20 MT 09/18/16 08:00 09/21/16 19:51 (Aspirin Chew) 81 mg DAILY PO 09/18/16 09:45 09/22/16 09:51 (Tylenol) 650 mg Q4H PRN PO 09/18/16 23:45 09/19/16 03:37 (SoluMEDROL INJ) 40 mg Q8H IV PUSH 09/19/16 16:00 09/21/16 23:42 (Apresoline Inj) 10 mg Q3H PRN IV 09/19/16 23:45 09/21/16 08:34 (Drisdol) 50,000 units Q7D PO 09/20/16 12:00 09/20/16 12:54 (Lasix) 20 mg DAILY PO 09/23/16 09:00 Vital Signs / I&O Vital Signs Date Time Temp Pulse Resp B/P Pulse Ox O2 Delivery O2 Flow Rate FiO2 09/22/16 09:11 86 19 128/84 100 09/22/16 08:54 97 Nasal Cannula 2.00 09/22/16 08:00 98.8 85 24 181/89 99 09/22/16 06:00 83 09/22/16 04:00 98.5 79 26 166/87 96 09/22/16 04:00 79 09/22/16 02:00 76 09/22/16 00:00 83 09/22/16 00:00 98.6 83 22 186/91 100 09/21/16 22:00 82 09/21/16 20:00 98.7 86 24 143/79 100 09/21/16 20:00 86 09/21/16 19:44 100 21 09/21/16 18:00 81 09/21/16 16:00 98.1 75 22 161/81 97 09/21/16 16:00 81 09/21/16 14:00 81 09/21/16 12:00 98.7 90 22 156/96 97 09/21/16 12:00 81 I/O 09/21/16 09/21/16 09/21/16 09/22/16 09/22/16 09/22/16 07:00 15:00 23:00 07:00 15:00 23:00 Intake Total 468 ml 480 ml 300 ml 200 ml Output Total 600 ml 850 ml 1550 ml 900 ml Balance -132 ml -370 ml -1250 ml -700 ml Intake Oral 300 ml 380 ml 300 ml 200 ml IV Total 168 ml 100 ml 0 ml 0 ml Output Urine Total 600 ml 850 ml 1550 ml 900 ml # Bowel Movements 0 3 0 0 Physical Exam Awake and alert Chest clear CV S1S2 RRR Ext adequate perfused. No edema Laboratory Laboratory Tests Test 09/22/16 05:00 White Blood Count 14.2 TH/MM3 Red Blood Count 6.38 MIL/MM3 Hemoglobin 16.4 GM/DL Hematocrit 51.0 % Mean Corpuscular Volume 80.0 FL Mean Corpuscular Hemoglobin 25.7 PG Mean Corpuscular Hemoglobin 32.1 % Concent Red Cell Distribution Width 13.8 % Platelet Count 251 TH/MM3 Mean Platelet Volume 10.0 FL Sodium Level 134 MEQ/L Potassium Level 4.1 MEQ/L Chloride Level 95 MEQ/L Carbon Dioxide Level 29.2 MEQ/L Anion Gap 10 MEQ/L Blood Urea Nitrogen 40 MG/DL Creatinine 1.07 MG/DL Estimat Glomerular Filtration 88 ML/MIN Rate Random Glucose 175 MG/DL Calcium Level 9.6 MG/DL Assessment and Plan Problem List: (1) Non-compliance (2) Cardiomyopathy Assessment and Plan: Change diltiazem to carvedilol. Add amlodipine (3) Acute kidney insufficiency (4) Systolic CHF, acute Assessment and Plan: stable (5) Cocaine abuse Assessment and Plan Cardiology to F/U prn. Please call if questions Suman Mahajan MD Sep 22, 2016 11:34
[2016-09-22] MEDS ORDERED: ASPI81CH25 PO (12:48)
[2016-09-22] MEDS ORDERED: ERGO1CAP30 PO (12:48)
[2016-09-22] MEDS ORDERED: AMLO5 PO (12:48)
[2016-09-22] MEDS ORDERED: FURO20TA PO (12:48)
[2016-09-22] MEDS ORDERED: CARV6.25 PO (12:48)
--- NOTE | 2016-09-22 14:39 | HHI.DCPOC ---
Discharge Care Plan Diagnosis: (1) Pulseless electrical activity (2) Systolic CHF, acute (3) Cardiomyopathy (4) Pulmonary edema (5) Acute kidney insufficiency (6) Cocaine abuse (7) Hepatitis C Goals to Promote Your Health * To prevent worsening of your condition and complications * To maintain your health at the optimal level Directions to Meet Your Goals Take your medications as prescribed Follow your dietary instruction Follow activity as directed Keep your appointments as scheduled Take your immunizations and boosters as scheduled If your symptoms worsen call your PCP, if no PCP go to Urgent Care Center or Emergency Room Smoking is Dangerous to Your Health. Avoid second hand smoke Call the 24-hour hour crisis hotline for domestic abuse at Tomasa Welsh MD Sep 22, 2016 14:39
--- NOTE | 2016-09-22 14:58 | HHI.PR ---
Subjective Remarks Follow-up for multiple medical conditions listed in the assessment plan Patient has no complaints. He denies any shortness of breathing. He is off the oxygen. He stated that he is able to ambulate on his own. Good PO intake. Patient stated he stays with friends. Good UOP. Nurse is at bedside. No events. Objective Vitals Vital Signs Date Time Temp Pulse Resp B/P Pulse Ox O2 Delivery O2 Flow Rate FiO2 09/22/16 09:11 86 19 128/84 100 09/22/16 08:54 97 Nasal Cannula 2.00 09/22/16 08:00 98.8 85 24 181/89 99 09/22/16 06:00 83 09/22/16 04:00 98.5 79 26 166/87 96 09/22/16 04:00 79 09/22/16 02:00 76 09/22/16 00:00 83 09/22/16 00:00 98.6 83 22 186/91 100 09/21/16 22:00 82 09/21/16 20:00 98.7 86 24 143/79 100 09/21/16 20:00 86 09/21/16 19:44 100 21 09/21/16 18:00 81 09/21/16 16:00 98.1 75 22 161/81 97 09/21/16 16:00 81 I/O 09/21/16 09/21/16 09/21/16 09/22/16 09/22/16 09/22/16 06:59 14:59 22:59 06:59 14:59 22:59 Intake Total 468 ml 480 ml 300 ml 200 ml Output Total 600 ml 850 ml 1550 ml 900 ml Balance -132 ml -370 ml -1250 ml -700 ml Intake Oral 300 ml 380 ml 300 ml 200 ml IV Total 168 ml 100 ml 0 ml 0 ml Output Urine Total 600 ml 850 ml 1550 ml 900 ml # Bowel Movements 0 3 0 0 Result Diagram: 09/22/16 0500 09/22/16 0500 Objective Remarks GENERAL: thin male in NAD CARDIOVASCULAR: Regular rate and rhythm without murmurs, gallops, or rubs. RESPIRATORY: Breath sounds equal bilaterally. No accessory muscle use. GASTROINTESTINAL: Abdomen soft, non-tender, nondistended. MUSCULOSKELETAL: No cyanosis, or edema. BACK: Nontender without obvious deformity. No CVA tenderness. Medications and IVs Current Medications Vecuronium Villalba (Norcuron 10 Mg Inj) 10 mg STK-MED ONCE .ROUTE ; Start at 05:30; Stop 09/16/16 at 05:31; Status DC Sodium Chloride (NS Flush) 2 ml UNSCH PRN IVF FLUSH AFTER USING IV ACCESS Last administered on 09/17/16 07:55; Start 09/16/16 at 05:45 Vecuronium Villalba (Norcuron 10 Mg Inj) 10 mg ONCE ONCE IV Last administered on 09/16/16 05:53; Start 09/16/16 at 05:45; Stop 09/16/16 at 05:46; Status DC Sodium Chloride (NS Flush) 2 ml UNSCH PRN IVF FLUSH AFTER USING IV ACCESS; Start 09/16/16 at 05:45 Propofol 100 mg 100 mg ONCE ONCE IV Last administered on 09/16/16 05:52; Start 09/16/16 at 05:45; Stop 09/16/16 at 05:46; Status DC Propofol 100 ml @ 0 mls/hr TITRATE IV Last administered on 09/17/16 10:30; Start 09/16/16 at 05:45; Stop 09/17/16 at 14:32; Status DC Ceftriaxone Sodium 2000 mg/ Sodium Chloride 100 ml @ 200 mls/hr ONCE STAT IV Last administered on 09/16/16 07:32; Start 09/16/16 at 06:17; Stop 09/16/16 at 06:46; Status DC Azithromycin/ Sodium Chloride (Zithromax Inj/ NS 250 ml Inj) 250 ml @ 250 mls/ hr ONCE STAT IV Last administered on 09/16/16 06:35; Start 09/16/16 at 06:17 ; Stop 09/16/16 at 07:16; Status DC Sodium Bicarbonate (Sodium Bicarbonate 8.4% Inj) 50 meq ONCE ONCE IV PUSH Last administered on 09/16/16 06:37; Start 09/16/16 at 06:30; Stop 09/16/16 at 06:31; Status DC Sodium Bicarbonate (Sodium Bicarbonate 8.4% Inj) 50 meq STK-MED ONCE .ROUTE ; Start 09/16/16 at 06:38; Stop 09/16/16 at 06:39; Status DC Pantoprazole Sodium (Protonix Inj) 40 mg DAILY IV Last administered on 09:50; Start 09/16/16 at 09:00; Stop 09/22/16 at 12:46; Status DC Albuterol/ Ipratropium (Duoneb Neb) 1 ampule Q6HR NEB INH Last administered on 09/17/16 07:40; Start 09/16/16 at 10:00; Stop 09/17/16 at 14:35; Status DC Miscellaneous Information 1 Q361D XX ; Start 09/16/16 at 08:15 Chlorhexidine Gluconate (Chlorhexidine 2% Cloth) Taper DAILY@04 TOP Last administered on 09/22/16 04:00; Start 09/17/16 at 04:00; Stop 09/13/17 at 03:59 Chlorhexidine Gluconate (Chlorhexidine 2% Cloth) 3 pack UNSCH PRN TOP HYGIENIC CARE; Start 09/16/16 at 08:15 Diltiazem HCl (Cardizem Inj) 10 mg ONCE ONCE IV Last administered on 08:28; Start 09/16/16 at 08:15; Stop 09/16/16 at 08:16; Status DC Diltiazem HCl (Cardizem) 60 mg QID PO Last administered on 09/22/16 09:50; Start 09/16/16 at 09:00; Stop 09/22/16 at 11:33; Status DC Bumetanide 1 mg 1 mg ONCE ONCE IV PUSH Last administered on 09/16/16 08:28; Start 09/16/16 at 09:00; Stop 09/16/16 at 09:01; Status DC Piperacillin Sod/ Tazobactam Sod (Zosyn 4.5 Gm Premix) 100 ml @ 200 mls/hr Q8H IV Last administered on 09/21/16 08:35; Start 09/16/16 at 08:15; Stop at 10:45; Status DC Dextrose (D50w (Vial) Inj) 50 ml UNSCH PRN IV HYPOGLYCEMIA-SEE COMMENTS; Start 09/16/16 at 08:15 Glucagon (Glucagon Inj) 1 mg UNSCH PRN OTHER HYPOGLYCEMIA-SEE COMMENTS; Start 09/16/16 at 08:15 Insulin Human Regular 1 1 Q6H SQ ; Start 09/16/16 at 09:00; Stop 09/16/16 at 12: 27; Status DC Fentanyl Citrate (fentaNYL DRIP) 250 ml @ 0 mls/hr TITRATE IV Last administered on 09/17/16 05:59; Start 09/16/16 at 10:30; Stop 09/17/16 at 14:32 ; Status DC Diltiazem HCl (Cardizem Inj) 10 mg ONCE ONCE IV Last administered on 10:50; Start 09/16/16 at 10:30; Stop 09/16/16 at 10:32; Status DC Bumetanide (Bumex Inj) 1 mg ONCE ONCE IV PUSH Last administered on 09/16/16 10:50; Start 09/16/16 at 10:30; Stop 09/16/16 at 10:31; Status DC Heparin Sodium (Porcine) (Heparin Inj) 5,000 units Q12HR SQ Last administered on 09/22/16 09:50; Start 09/16/16 at 21:00 Glucagon (Glucagon Inj) 1 mg UNSCH PRN OTHER HYPOGLYCEMIA-SEE COMMENTS; Start 09/16/16 at 12:30; Status Cancel Insulin Human Regular 1 1 Q4H SQ Last administered on 09/22/16 05:15; Start at 12:30; Stop 09/22/16 at 10:22; Status DC Calcium Gluconate/ Sodium Chloride (Calcium Gluconate Inj/NS Inj) 110 ml @ 110 mls/hr ONCE ONCE IV Last administered on 09/16/16 16:58; Start 09/16/16 at 16 :00; Stop 09/16/16 at 16:59; Status DC Aspirin 325 mg 325 mg ONCE ONCE PO Last administered on 09/16/16 16:55; Start 09/16/16 at 14:15; Stop 09/16/16 at 14:16; Status DC Calcium Gluconate/ Sodium Chloride (Calcium Gluconate Inj/NS Inj) 110 ml @ 110 mls/hr ONCE ONCE IV Last administered on 09/17/16 10:41; Start 09/17/16 at 07 :00; Stop 09/17/16 at 07:59; Status DC Diltiazem HCl (Cardizem Inj) 10 mg ONCE ONCE IV Last administered on 6/21/ 17at 07:55; Start 09/17/16 at 07:30; Stop 09/17/16 at 07:31; Status DC Albuterol/ Ipratropium (Duoneb Neb) 1 ampule Q4HR NEB NEB Last administered on 09/20/16 20:42; Start 09/17/16 at 16:00; Stop 09/21/16 at 16:00; Status DC Albuterol/ Ipratropium 1 ampule 1 ampule Q2HR NEB PRN NEB SHORTNESS OF BREATH; Start 09/17/16 at 14:30 Cefazolin Sodium/ Dextrose (Ancef 2 Gm Premix) 50 ml @ As Directed STK-MED ONCE .ROUTE ; Start 09/17/16 at 19:04; Stop 09/17/16 at 19:05; Status DC Labetalol HCl (Trandate) 200 mg Q8H PO ; Start 09/18/16 at 00:00; Stop 09/18/16 at 00:00; Status DC Labetalol HCl (Trandate Inj) 20 mg Q2H PRN IV FOR SBP > 160 Last administered on 09/17/16 22:44; Start 09/17/16 at 22:45; Stop 09/17/16 at 23:56; Status DC Midazolam HCl (Versed Inj) 10 mg STK-MED ONCE .ROUTE Last administered on 00:41; Start 09/17/16 at 23:49; Stop 09/17/16 at 23:50; Status DC Rocuronium Villalba (Zemuron Inj) 100 mg STK-MED ONCE .ROUTE ; Start 09/17/16 at 23:51; Stop 09/17/16 at 23:52; Status DC Chlorhexidine Gluconate 15 ml 15 ml BID@08,20 MT Last administered on 19:51; Start 09/18/16 at 08:00 Propofol 100 ml @ 0 mls/hr TITRATE IV ; Start 09/18/16 at 00:00; Stop 09/19/16 at 09:35; Status DC Fentanyl Citrate (fentaNYL DRIP) 250 ml @ 0 mls/hr TITRATE IV Last administered on 09/19/16 05:37; Start 09/18/16 at 00:00; Stop 09/19/16 at 09:36 ; Status DC Rocuronium Villalba (Zemuron Inj) 50 mg NOW IV Last administered on 09/18/16 01 :14; Start 09/18/16 at 00:30; Stop 09/18/16 at 01:05; Status DC Furosemide (Lasix Inj) 20 mg BID@09,18 IV PUSH Last administered on 09/21/16 18:23; Start 09/18/16 at 18:00; Stop 09/22/16 at 09:44; Status DC Aspirin (Aspirin Chew) 81 mg DAILY PO Last administered on 09/22/16 09:51; Start 09/18/16 at 09:45 Acetaminophen (Tylenol) 650 mg Q4H PRN PO PAIN 1-10/ FEVER > 101 Last administered on 09/19/16 03:37; Start 09/18/16 at 23:45 Sodium Polystyrene Sulfonate (Kayexalate Liq) 15 gm ONCE ONCE PO Last administered on 09/19/16 09:16; Start 09/19/16 at 08:15; Stop 09/19/16 at 08:16 ; Status DC Methylprednisolone Sodium Succinate (SoluMEDROL INJ) 40 mg Q8H IV PUSH Last administered on 09/21/16 23:42; Start 09/19/16 at 16:00; Stop 09/22/16 at 12:44 ; Status DC Diltiazem HCl (Cardizem Inj) 25 mg STK-MED ONCE .ROUTE ; Start 09/19/16 at 18:17 ; Stop 09/19/16 at 18:18; Status DC Diltiazem HCl (Cardizem Inj) 10 mg ONCE ONCE IV Last administered on 20:29; Start 09/19/16 at 18:30; Stop 09/19/16 at 18:31; Status DC Hydralazine HCl (Apresoline Inj) 10 mg Q3H PRN IV PRN FOR SYSTOLIC BP >160 Last administered on 09/21/16 08:34; Start 09/19/16 at 23:45 Ergocalciferol (Drisdol) 50,000 units Q7D PO Last administered on 09/20/16 12: 54; Start 09/20/16 at 12:00 Furosemide (Lasix) 20 mg DAILY PO ; Start 09/23/16 at 09:00 Insulin Aspart (NovoLOG SUPPLEMENTAL SCALE) 1 ACHS SLIDING SCALE SQ Last administered on 09/22/16t 12:38; Start 09/22/16 at 11:00 Carvedilol (Coreg) 6.25 mg Q12HR PO ; Start 09/22/16 at 21:00 Amlodipine Besylate (Norvasc) 5 mg DAILY PO ; Start 09/23/16 at 09:00 A/P Assessment and Plan Acute hypoxemic and hypercapnic respiratory failure. -Status post PEA arrest -Most likely secondary to cocaine use. -off oxygen and lungs clear. d/c solumedrol. do not need to wean since only 5 days worth. -Patient was intubated on 09/17 and self extubated on 09/19 Altered mental status -Secondary to PEA arrest -Resolved. - CT brain showed no evidence of any intraparenchymal hemorrhage or mass effect. UDS + Cocaine -Patient treated empirically for infection. -on abx (Zosyn) monitor for signs of infections( fever and WBC). Pancultured . 09/16 blood, sputum and urine cultures: NGTD. Strep pneumoniae, Legionella and urinary antigen negative. -Workup has been negative for any infection. -continues to do well off of antibiotics. Acute kidney injury -Secondary to PEA arrest due to cocaine use. -Resolved. Pulmonary edema/Cardiomyopathy/acute systolic CHF/hypertension -Most likely due to cocaine use and hypertension. -Patient is on Cardizem and aspirin. Patient is also on Lasix and switched to PO lasix. - Echo showed EF 35-40%, mod-severe MR, Mild TR History of hepatitis C -Noncompliant. -US abdomen:Nonspecific gallbladder wall thickening. Gallstones are not seen. Multiple echogenic foci seen throughout the spleen. Calcifications are not seen on the CT examination. These are of uncertain etiology. Noncalcified granulomas could still have this appearance. No hydronephrosis -Currently using cocaine so not a candidate for treatment. -Follow-up as outpatient. A 7 x 6 mm nodule right upper lobe. -Patient will need a follow-up CT scan of the chest in 3 months to monitor for stability. GI prophylaxis with Protonix 40 mg daily and DVT prophylaxis with SCD's and heparin SQ. Discharge Planning remove james and if able to urinate on own can be discharge. order for discharge placed. Tomasa Welsh MD Sep 22, 2016 14:57
[2016-09-22] MEDS ORDERED: CARVEDILOL 6.25 MG TAB PO SCH (21:00)
[2016-09-23] MEDS ORDERED: amLODIPine BESYLATE 5 MG TAB PO SCH (09:00)
[2016-09-23] MEDS ORDERED: FUROSEMIDE 20 MG TAB PO SCH (09:00)
== END 2016-09-22 16:26 | disposition home or self-care (01) | DRG 208 ==
LOC: NEPE 05:27 → EDBD 06:42 → NEDA 06:42 → MERGE 06:42 → HIME 09:50
PROVIDERS: ADMIT Family Medicine; ATTEND Family Medicine
PROC: 0BH17EZ Insertion of Endotracheal Airway into Trachea, Via Natural or Artificial Opening (ICD-10-PCS; principal; 2016-09-16)
PROC: 5A1935Z Respiratory Ventilation, Less than 24 Consecutive Hours (ICD-10-PCS; 2016-09-16)
PROC: 5A09357 Assistance with Respiratory Ventilation, Less than 24 Consecutive Hours, Continuous Positive Airway Pressure (ICD-10-PCS; 2016-09-17)
PROC: 5A1945Z Respiratory Ventilation, 24-96 Consecutive Hours (ICD-10-PCS; 2016-09-18)
PROC: 0BH17EZ Insertion of Endotracheal Airway into Trachea, Via Natural or Artificial Opening (ICD-10-PCS; 2016-09-18)
DX: J96.01 Acute respiratory failure with hypoxia (principal); I46.9 Cardiac arrest, cause unspecified; I50.23 Acute on chronic systolic (congestive) heart failure; N17.9 Acute kidney failure, unspecified; E87.2 Acidosis; I42.7 Cardiomyopathy due to drug and external agent; E11.65 Type 2 diabetes mellitus with hyperglycemia; E83.51 Hypocalcemia; J96.02 Acute respiratory failure with hypercapnia; B18.2 Chronic viral hepatitis C; F17.210 Nicotine dependence, cigarettes, uncomplicated; F14.10 Cocaine abuse, uncomplicated; T40.5X1A Poisoning by cocaine, accidental (unintentional), initial encounter; R91.1 Solitary pulmonary nodule; I11.0 Hypertensive heart disease with heart failure; Z91.14 Patient's other noncompliance with medication regimen; E87.5 Hyperkalemia; R00.0 Tachycardia, unspecified
CPT/HCPCS: 31500; 36600; 51702; 70450; 71010; 71250; 76700; 80048; 80053; 80307; 81001; 82306; 82550; 82552; 82570; 82805; 82948; 83605; 83735; 83880; 84100; 84156; 84300; 84484; 85025; 85027; 85610; 85730; 86160; 87040; 87070; 87086; 87205; 87449; 87522; 87641; 92950; 93005; 93306; 94002; 94003; 94620; 94640; 94664; 96374; 96375; C9113; J0360; J0456; J0610; J0690; J0696; J1644; J1815; J1940; J2250; J2543; J2920; J3010; J7050

== ENCOUNTER 2016-10-08 04:15 | Inpatient (IN) | payer SELFPAY ==
[2016-10-08] VITALS (8 sets, daily range): BP systolic 106–139; BP diastolic 59–81; PULSE 70–93; RESP 14–20; TEMP 97.8–98.3; O2SAT 95–100
[~2016-10-08] VITALS: Ht 170.2 cm; Wt 59.7 kg
[~2016-10-08 04:15] MED LIST changes: +AMLO5 PO; +ASPI81CH25 PO; +CARV6.25 PO; +ERGO1CAP30 PO; +FURO20TA PO; -LEVEMIR SQ; -LISI-357 PO; -NOVOLOGP2 SQ
[2016-10-08] MEDS ORDERED: SODIUM CHLOR 0.9% 1000 ML INJ 1,000 ML IV ONE ×2 (05:00→06:15)
[2016-10-08 05:18] LABS: AUTOMATED NEUTROPHIL # 8.9 TH/MM3 (1.8-7.7); BASOPHIL % 0.4 % (0.0-2.0); EOSINOPHIL # 0.3 TH/MM3 (0-0.4); EOSINOPHIL % 2.9 % (0.0-4.0); HEMATOCRIT 38.8 % (39.0-51.0); HEMO FLAGS DIFF FINAL; LYMPH % 8.6 % (9.0-44.0); MEAN CELL VOLUME 81.5 FL (80.0-100.0); MEAN CORPUSCULAR HEMOGLOBIN 25.4 PG (27.0-34.0); MEAN CORPUSCULAR HGB CONC 31.2 % (32.0-36.0); MONO % 10.3 % (0.0-8.0); NEUT % 77.8 % (16.0-70.0); PLATELET COUNT 217 TH/MM3 (150-450); RED BLOOD COUNT 4.75 MIL/MM3 (4.50-5.90); WHITE BLOOD COUNT 11.4 TH/MM3 (4.0-11.0)
[2016-10-08 05:19] LABS: BACTERIA, URINE RARE /hpf; BLOOD, URINE NEG (NEG); GLUCOSE,URINE 1000 mg/dL (NEG); KETONE, URINE NEG (NEG); MUCUS URINE FEW /lpf (OCC); NITRITE,URINE NEG (NEG); SQUAMOUS EPITHELIAL CELL URINE <1 /hpf (0-5); URINE COLOR LIGHT-YELLOW (YELLW/STRAW)
[2016-10-08 05:23] LABS: COMMENT (UR) CULT NOT INDICATED; CULTURE IF INDICATED CULT NOT INDICATED
--- NOTE | 2016-10-08 05:27 | PD ---
HPI Chief Complaint: Diabetic Time Seen by Provider: 04:34 Travel History International Travel<30 days: No Contact w/Intl Traveler<30days: No Traveled to known affect area: No History of Present Illness HPI The patient is a 51 year old male who presents to the [facility] emergency department with a history of reportedly not feeling well since earlier yesterday. The patient reports that he was just discharged from [facility] yesterday. The patient reports that he has no insulin for his diabetes. The patient reports that he is homeless. He reports he was discharged with prescriptions for antibiotics that he has not filled yet. He is on antibiotic related to an infected wound on the right buttock and decubitus area over the sacrum. The patient reports that he developed this area of pressure wound while he was in the hospital at [place]. From reviewing the record the patient was admitted on September 16, 2016 posterior after an arrest in which she was found to be in PEA. According to the record the patient has a history of cocaine use. He reports that he last used cocaine yesterday. The patient denies using IV drugs. He reports that he smokes cocaine. The patient denies having any known recent fevers. He denies having any cough or congestion. A review of systems, he denies having any chest pain, chest pressure, shortness of breath, abdominal pain, or vomiting. He does report having occasional diarrhea. He had 2 loose stools yesterday. He denies having any blood in his stool or black or tarry stools. He reports having urinary frequency without dysuria. [facility] Past Medical History Narrative Medical The patient's past medical history is significant for diabetes mellitus, hepatitis C, cocaine use, glaucoma. The patient was last admitted to this facility on September 16, 2016 status post PEA cardiac arrest. Asthma: No Blood Disorders: No Anxiety: No Depression: No Heart Rhythm Problems: No Cancer: No Cardiovascular Problems: Yes Chemotherapy: No Chest Pain: No Congestive Heart Failure: No COPD: No Diabetes: Yes Patient Takes Glucophage: No Diminished Hearing: No Endocrine: Yes Gastrointestinal Disorders: No Genitourinary: No Hepatitis: No Hiatal Hernia: No Hypertension: Yes Immune Disorder: No Musculoskeletal: No Neurologic: No Psychiatric: No Reproductive: No Respiratory: No Myocardial Infarction: Yes (09/13) Radiation Therapy: No Sleep Apnea: No Thyroid Disease: No Past Surgical History Narrative Surgical The patient's past surgical history is significant for hernia repair. Abdominal Surgery: Yes (R INGUINAL HERNIA REPAIR IN CHILDHOOD) AICD: No Joint Replacement: No Pacemaker: No Other Surgery: Yes (HERNIA REPAIR) Social History Alcohol Use: No Tobacco Use: No Substance Use: Yes (COCAINE-LAST USED yesterday) Allergies-Medications (Allergen,Severity, Reaction): Coded Allergies: No Known Allergies (Unverified , 10/08/16) UNOBTAINABLE (Unverified , 09/19/16) Reported Meds & Prescriptions Reported Meds & Active Scripts Active Furosemide 20 Mg Tab 20 Mg PO DAILY Ergocalciferol 50,000 Unit Cap 50,000 Units PO Q7D Coreg (Carvedilol) 6.25 Mg Tab 6.25 Mg PO Q12HR Aspirin Low Strength (Aspirin) 81 Mg Chew 81 Mg PO DAILY Norvasc (Amlodipine Besylate) 5 Mg Tab 5 Mg PO DAILY Review of Systems Except as stated in HPI: all other systems reviewed are Neg General / Constitutional: No: Fever Eyes: No: Visual changes HENT: No: Headaches Cardiovascular: No: Chest Pain or Discomfort Respiratory: No: Shortness of Breath Gastrointestinal: Positive: Diarrhea, Changes in Bowel Habits, No: Nausea, Vomiting, Abdominal Pain, Hematemesis, Hematochezia, Indigestion, Loss of Appetite Genitourinary: No: Dysuria Musculoskeletal: No: Pain Skin: No Rash Neurologic: Positive: Weakness (generalized weakness), No: Focal Abnormalities , Change in Mentation, Slurred Speech, Sensory Disturbance Psychiatric: No: Depression Endocrine: Positive: Polyuria, Polydipsia Hematologic/Lymphatic: No: Easy Bruising Physical Exam Narrative General: The patient is a well-developed thin appearing male in no acute distress. Head and Neck exam: Head is normocephalic atraumatic. Eyes: EOMI, pupils are equal round and reactive to light. Nose: Midline septum with pink mucous membranes Mouth: Dentition unremarkable. Moist mucus membranes. Posterior oropharynx is not erythematous. No tonsillar hypertrophy. Uvula midline. Airway patent. Neck: No palpable lymphadenopathy. No nuchal rigidity. No thyromegaly. Cardiovascular: Regular rate and rhythm without murmurs, gallops, or rubs. No pulse deficit to the extremities and simultaneous auscultation and palpation of his radial artery. Lungs: Clear to auscultation bilaterally. No wheezes, rhonchi, or rales. Abdomen: Soft, without tenderness to palpation in all 4 quadrants of the abdomen. No guarding, rebound, or rigidity. Normal bowel sounds are audible. No tenderness on palpation of McBurney's point. Negative Redding sign. Extremities: No clubbing, cyanosis, or edema. 2+ pulses in all 4 extremities. No calf tenderness on palpation. Back: No spinous process tenderness to palpation. No costovertebral angle tenderness to palpation. Neurologic Exam: Grossly nonfocal. Skin Exam: No rash noted. On examination of the area of interest, the patient' s back area and sacrum the patient is noted to have a large area of ulceration along the right buttock and into the gluteal fold. On the upper aspect of the buttock area there is spread of induration and tenderness on palpation underlying normal-appearing surface tissue. This is suspicious for extension of the infection. There is some drainage noted. Wound culture was collected. Data Data Last Documented VS Vital Signs Date Time Temp Pulse Resp B/P Pulse Ox O2 Delivery O2 Flow Rate FiO2 10/08/16 04:54 95 10/08/16:17 98.0 93 18 123/64 Room Air Orders Electrocardiogram (10/08/16 04:51) Complete Blood Count With Diff (10/08/16 04:51) Comprehensive Metabolic Panel (10/08/16 04:51) Creatine Kinase (Cpk) (10/08/16 04:51) Ckmb (Isoenzyme) Profile (10/08/16 04:51) Troponin I (10/08/16 04:51) B-Type Natriuretic Peptide (10/08/16 04:51) Prothrombin Time / Inr (Pt) (10/08/16 04:51) Act Partial Throm Time (Ptt) (10/08/16 04:51) Blood Culture (10/08/16 04:51) C-Reactive Protein (Crp) (10/08/16 04:51) Lipase (10/08/16 04:51) Urinalysis - C+S If Indicated (10/08/16 04:51) Magnesium (Mg) (10/08/16 04:51) Blood Gas Venous Ph (10/08/16 04:51) Iv Access Insert/Monitor (10/08/16 04:51) Ecg Monitoring (10/08/16 04:51) Oximetry (10/08/16 04:51) Lactic Acid Sepsis Protocol (10/08/16 04:51) Sodium Chlor 0.9% 1000 Ml Inj (Ns 1000 M (10/08/16 05:00) Wound Culture And Gram Stain (10/08/16 05:27) Insulin Human Regular Inj (Novolin R Inj (10/08/16 05:30) Sodium Chlor 0.9% 1000 Ml Inj (Ns 1000 M (10/08/16 06:15) Vancomycin Inj (Vancomycin Inj) (10/08/16 06:15) Piperacil-Tazo 3.375 Gm Premix (Zosyn 3. (10/08/16 06:15) Admit To Inpatient (10/08/16 ) Vital Signs (Adult) Q4H (10/08/16 06:33) Activity Oob With Assistance (10/08/16 06:33) Sales Promotion Officer / Telemetry .CONTINUOUS (10/08/16 06:33) Diet 1800 Ada Cons Carb (10/08/16 Breakfast) Diet Heart Healthy (10/08/16 Breakfast) Sodium Chloride 0.9% Flush (Ns Flush) (10/08/16 06:45) Sodium Chloride 0.9% Flush (Ns Flush) (10/08/16 09:00) Ondansetron Inj (Zofran Inj) (10/08/16 06:45) Basic Metabolic Panel (Bmp) (10/09/16 06:00) Complete Blood Count With Diff (10/09/16 06:00) Case Management Consult (10/08/16 06:33) Naloxone Inj (Narcan Inj) (10/08/16 06:45) Inpatient Certification (10/08/16 ) Admit Order (Ed Use Only) (10/08/16 06:34) Consult Wound / Ostomy Nurse (10/08/16 ) Vancomycin Consult Pharmacy (Vancomycin (10/08/16 06:45) Piperacil-Tazo 4.5 Gm Premix (Zosyn 4.5 (10/08/16 10:00) Labs Laboratory Tests Test 10/08/16 10/08/16 10/08/16 04:50 04:53 05:05 White Blood Count 11.4 TH/MM3 Red Blood Count 4.75 MIL/MM3 Hemoglobin 12.1 GM/DL Hematocrit 38.8 % Mean Corpuscular Volume 81.5 FL Mean Corpuscular Hemoglobin 25.4 PG Mean Corpuscular Hemoglobin 31.2 % Concent Red Cell Distribution Width 14.0 % Platelet Count 217 TH/MM3 Mean Platelet Volume 10.2 FL Neutrophils (%) (Auto) 77.8 % Lymphocytes (%) (Auto) 8.6 % Monocytes (%) (Auto) 10.3 % Eosinophils (%) (Auto) 2.9 % Basophils (%) (Auto) 0.4 % Neutrophils # (Auto) 8.9 TH/MM3 Lymphocytes # (Auto) 1.0 TH/MM3 Monocytes # (Auto) 1.2 TH/MM3 Eosinophils # (Auto) 0.3 TH/MM3 Basophils # (Auto) 0.0 TH/MM3 CBC Comment DIFF FINAL Differential Comment Prothrombin Time 10.2 SEC Prothromb Time International 0.9 RATIO Ratio Activated Partial 28.2 SEC Thromboplast Time Sodium Level 125 MEQ/L Potassium Level 5.3 MEQ/L Chloride Level 91 MEQ/L Carbon Dioxide Level 23.5 MEQ/L Anion Gap 11 MEQ/L Blood Urea Nitrogen 34 MG/DL Creatinine 1.57 MG/DL Estimat Glomerular Filtration 57 ML/MIN Rate Random Glucose 810 MG/DL Lactic Acid Level 2.2 mmol/L Calcium Level 8.3 MG/DL Magnesium Level 1.9 MG/DL Total Bilirubin 0.4 MG/DL Aspartate Amino Transf 37 U/L (AST/SGOT) Alanine Aminotransferase 87 U/L (ALT/SGPT) Alkaline Phosphatase 126 U/L Total Creatine Kinase 72 U/L Troponin I LESS THAN 0.02 NG/ML C-Reactive Protein 0.80 MG/DL B-Type Natriuretic Peptide 157 PG/ML Total Protein 6.6 GM/DL Albumin 2.4 GM/DL Lipase 263 U/L Venous Blood pH 7.34 Urine Color LIGHT-YELLOW Urine Turbidity CLEAR Urine pH 5.0 Urine Specific [place] 1.018 Urine Protein NEG mg/dL Urine Glucose (UA) 1000 mg/dL Urine Ketones NEG mg/dL Urine Occult Blood NEG Urine Nitrite NEG Urine Bilirubin NEG Urine Urobilinogen LESS THAN 2.0 MG/DL Urine Leukocyte Esterase NEG Urine WBC LESS THAN 1 /hpf Urine Squamous Epithelial <1 /hpf Cells Urine Bacteria RARE /hpf Urine Mucus FEW /lpf Microscopic Urinalysis Comment CULT NOT INDICATED MDM Medical Decision Making Medical Screen Exam Complete: Yes Emergency Medical Condition: Yes Medical Record Reviewed: Yes Differential Diagnosis DKA, versus hyperosmolar hyperglycemia, versus sepsis related to a decubitus infection Narrative Course During the course of the patients emergency department visit, the patients history, examination, and differential diagnosis were reviewed with the patient. The patient had IV access obtained and blood work sent for analysis. The patient was placed on a community health nurse with oximetry and blood pressure monitoring. A blood sugar on arrival was noted to be critically high. A VBG was done. The patient's pH is 7.33, PCO2 48.6, bicarbonate 25.2. The patient is hyperglycemic without evidence of DKA at this time. The patient will be given subcutaneous insulin. An ECG was done on arrival. The patient's ECG reveals PT T waves, sinus rhythm of 92, QRS duration of 89 ms, QTC 404 ms with voltage criteria suspicious for ventricular hypertrophy. No acute ST segment elevation, J-point elevation is noted. T waves are inverted in V2. Again, the patient denies any chest pain, chest pressure, or shortness of breath. The patient be evaluated for hyperkalemia. The patient was initially provided normal saline 1 L IV fluid bolus, regular insulin 10 units subcutaneously 1. The patients laboratory studies were reviewed and remarkable for a white count of 11.4, hemoglobin 12.1, platelets 217 with neutrophils 77.8, lymphocytes 8.6, monocytes 10.3, CMP is remarkable for a sodium of 125, potassium 5.3, chloride 91, BUN 34, creatinine 1.57, glucose 810, calcium 8.3, ALT 87, alkaline phosphatase 126, CPK 72, troponin I less than 0.02, C-reactive protein 0.8, albumin 2.4, lipase 263. BNP is 157, lactic acid is 2.2. The patient was given a second liter of normal saline. The patient was started on vancomycin 1 g IV, Zosyn 3.375 g IV. Urinalysis shows 2000 glucose, rare bacteria. The patients results were discussed with the patient, including the plan of care. I explained that further testing and/ or monitoring is indicated based on the patients history, examination, and/ or laboratory findings. Therefore, I recommended admission for additional evaluation. The patient expressed understanding and was agreeable with this plan. The patient was admitted to the hospital in guarded condition and sent to a bed under the care of the [facility]. Sepsis Criteria SIRS Criteria (2 or more): Heart rate over 90 Physician Communication Physician Communication The patient's case is discussed with Dr. Ordaz who did agree to admit the patient for further evaluation and treatment at this time. Diagnosis Primary Impression: Infected decubitus ulcer Qualified Code: L89.93 - Infected decubitus ulcer, stage III Additional Impressions: Hyperglycemia Noncompliance with medication regimen Admitting Information Admitting Physician Requests: Admit Dipika Mahajan MD Oct 08, 2016 05:27
[2016-10-08] MEDS ORDERED: INSULIN HUMAN REGULAR 1,000 UNITS/10 ML VIAL SQ ONE ×2 (05:30→23:30)
[2016-10-08 05:33] LABS: APTT (PATIENT) 28.2 SEC (24.3-30.1); INTERNATIONAL NORMALIZED RATIO 0.9 RATIO; PROTHROMBIN TIME - PATIENT 10.2 SEC (9.8-11.6)
[2016-10-08 05:48] LABS: ANION GAP 11 MEQ/L (5-15)
[2016-10-08 05:59] LABS: ALKALINE PHOSPHATASE 126 U/L (45-117); ALT (GPT) 87 U/L (12-78); AST (GOT) 37 U/L (15-37); BICARBONATE 23.5 MEQ/L (21.0-32.0); BLOOD UREA NITROGEN 34 MG/DL (7-18); CHLORIDE 91 MEQ/L (98-107); CREATINE KINASE 72 U/L (39-308); GLOMERULAR FILTRATION RATE 57 ML/MIN (>89); MAGNESIUM 1.9 MG/DL (1.5-2.5); POTASSIUM 5.3 MEQ/L (3.5-5.1); SODIUM (NA) 125 MEQ/L (136-145); TOTAL BILIRUBIN ADULT 0.4 MG/DL (0.2-1.0)
[2016-10-08] MEDS ORDERED: PIPERACIL-TAZO 3.375 GM PREMIX 50 ML IV ONE (06:15)
[2016-10-08] MEDS ORDERED: VANCOMYCIN INJ 1,000 MG in SODIUM CHLOR 0.9% 250 ML INJ 250 ML IV ONE (06:15)
[2016-10-08] MEDS ORDERED: Vancomycin Consult Pharmacy 1 EA OTHER SCH (06:45)
[2016-10-08] MEDS ORDERED: NALOXONE HCL 0.4 MG/ML AMP IV PRN (06:45)
[2016-10-08] MEDS ORDERED: ONDANSETRON HCL 4 MG/2 ML VIAL IVP PRN (06:45)
[2016-10-08] MEDS ORDERED: SODIUM CHLORIDE 0.9% FLUSH 10 ML FLUSH IV FLUSH PRN (06:45)
[2016-10-08 07:11] LABS: LACTIC ACID GHOST NOT REPORTABLE
[2016-10-08] MEDS: SODIUM CHLORIDE 0.9% FLUSH 10 ML FLUSH IV FLUSH SCH ×2 (07:51→21:16)
--- NOTE | 2016-10-08 10:00 | HHI.HP ---
HPI Service [facility] Hospitalists Primary Care Physician No Primary Care Physician Admission Diagnosis Infected decubitus ulcer, hyperglycemia Diagnoses: Chief Complaint: Gluteal wound and fatigue Travel History International Travel<30 Days: No Contact w/Intl Traveler <30 Da: No Traveled to Known Affected Are: No History of Present Illness 51-year-old male well known to me due to recent admission in August 2016 secondary to PEA arrest from crack cocaine use who presented with not feeling "well" so went to [facility] in which he was given clindamycin and collagenase upon discharge from the ED. He stated that he went home (patient is homeless.) and continue not feel well so went to [place]. Patient did not get any of his medication as directed on discharge during last admission. He denies any chest pain, shortness of breathing, palpitations, lightheadedness or dizziness. He stated that his only symptom was feeling "not well." Patient stated he continues to do crack cocaine. Last use was yesterday. Patient found to have gluteal wound, found to be hypoglycemic and an acute renal failure. He stated he does have good urine output. Denied any fevers or chills. Review of Systems Constitutional: COMPLAINS OF: Fatigue, DENIES: Diaphoretic episodes, Fever, Weight gain, Weight loss, Chills, Dizziness, Change in appetite, Night Sweats Endocrine: DENIES: Heat/cold intolerance, Polydipsia, Polyuria, Polyphagia Eyes: DENIES: Blurred vision, Diplopia, Eye inflammation, Eye pain, Vision loss , Photosensitivity, Double Vision Ears, nose, mouth, throat: DENIES: Tinnitus, Hearing loss, Vertigo, Nasal discharge, Oral lesions, Throat pain, Hoarseness, Ear Pain, Running Nose, Epistaxis, Sinus Pain, Toothache, Odynophagia Respiratory: DENIES: Apneas, Cough, Snoring, Wheezing, Hemoptysis, Sputum production, Shortness of breath Cardiovascular: DENIES: Chest pain, Palpitations, Syncope, Dyspnea on Exertion , PND, Lower Extremity Edema, Orthopnea, Claudication Gastrointestinal: DENIES: Abdominal pain, Black stools, Bloody stools, Constipation, Diarrhea, Nausea, Vomiting, Difficulty Swallowing, Anorexia Genitourinary: DENIES: Sexual dysfunction, Urinary frequency, Urinary incontinence, Urgency, Hematuria, Dysuria, Nocturia, Penile Discharge, Testicular Pain, Testicular Swelling Musculoskeletal: DENIES: Joint pain, Muscle aches, Stiffness, Joint Swelling, Back pain, Neck pain Integumentary: COMPLAINS OF: Rash, DENIES: Abnormal pigmentation, Nail changes , Pruritus Hematologic/lymphatic: DENIES: Bruising, Lymphadenopathy Immunologic/allergic: DENIES: Eczema, Urticaria Neurologic: DENIES: Abnormal gait, Headache, Localized weakness, Paresthesias, Seizures, Speech Problems, Tremor, Poor Balance Psychiatric: DENIES: Anxiety, Confusion, Mood changes, Depression, Hallucinations, Agitation, Suicidal Ideation, Homicidal Ideation, Delusions Past Family Social History Past Medical History Diabetes, hepatitis C, recent PEA arrest, cracked cocaine abuse, Cardiomyopathy , acute systolic CHF, hypertension Past Surgical History Deny any past surgical history. Reported Medications Furosemide 20 Mg Tab 20 Mg PO DAILY Ergocalciferol 50,000 Unit Cap 50,000 Units PO Q7D Coreg (Carvedilol) 6.25 Mg Tab 6.25 Mg PO Q12HR Aspirin Low Strength (Aspirin) 81 Mg Chew 81 Mg PO DAILY Norvasc (Amlodipine Besylate) 5 Mg Tab 5 Mg PO DAILY Allergies: Coded Allergies: No Known Allergies (Unverified , 10/08/16) UNOBTAINABLE (Unverified , 09/19/16) Active Ordered Medications Current Medications Sodium Chloride (NS 1000 ml Inj) 1,000 ml @ 1,000 mls/hr Q1H ONCE IV Last administered on 10/08/16 05:09; Start 10/08/16 at 05:00; Stop 10/08/16 at 05:59 ; Status DC Insulin Human Regular 10 units 10 units ONCE ONCE SQ Last administered on 10/08 05:47; Start 10/08/16 at 05:30; Stop 10/08/16 at 05:31; Status DC Sodium Chloride 1,000 ml @ 1,000 mls/hr Q1H ONCE IV Last administered on 06:35; Start 10/08/16 at 06:15; Stop 10/08/16 at 07:14; Status DC Vancomycin HCl 1000 mg/Sodium Chloride 250 ml @ 250 mls/hr ONCE ONCE IV Last administered on 10/08/16 07:51; Start 10/08/16 at 06:15; Stop 10/08/16 at 07:14 ; Status DC Piperacillin Sod/ Tazobactam Sod (Zosyn 3.375 Gm Premix) 50 ml @ 100 mls/hr ONCE ONCE IV Last administered on 10/08/16 06:46; Start 10/08/16 at 06:15; Stop 10/08/16 at 06:44; Status DC Sodium Chloride (NS Flush) 2 ml UNSCH PRN IV FLUSH FLUSH AFTER USING IV ACCESS ; Start 10/08/16 at 06:45 Sodium Chloride (NS Flush) 2 ml BID IV FLUSH Last administered on 10/08/16 07: 51; Start 10/08/16 at 09:00 Ondansetron HCl (Zofran Inj) 4 mg Q6H PRN IVP NAUSEA OR VOMITING; Start at 06:45 Naloxone HCl 0.4 mg 0.4 mg UNSCH PRN IV SEE LABEL COMMENTS; Start 10/08/16 at 06:45 Pharmacy Profile Note 0 ml @ 0 mls/hr UNSCH OTHER ; Start 10/08/16 at 06:45; Stop 10/08/16 at 09:57; Status DC Piperacillin Sod/ Tazobactam Sod (Zosyn 4.5 Gm Premix) 100 ml @ 200 mls/hr Q6H IV ; Start 10/08/16 at 12:00; Stop 10/08/16 at 12:00; Status DC Amlodipine Besylate (Norvasc) 5 mg DAILY PO ; Start 10/08/16 at 10:00; Status UNV Aspirin (Aspirin Chew) 81 mg DAILY PO ; Start 10/08/16 at 10:00; Status UNV Carvedilol (Coreg) 6.25 mg Q12HR PO ; Start 10/08/16 at 10:00; Status UNV Ergocalciferol (Drisdol) 50,000 units Q7D PO ; Start 10/08/16 at 10:00; Status UNV Furosemide (Lasix) 20 mg DAILY PO ; Start 10/08/16 at 10:00; Status UNV Dextrose (D50w (Vial) Inj) 50 ml UNSCH PRN IV HYPOGLYCEMIA-SEE COMMENTS; Start 10/08/16 at 10:15; Status UNV Glucagon (Glucagon Inj) 1 mg UNSCH PRN OTHER HYPOGLYCEMIA-SEE COMMENTS; Start 10/08/16 at 10:15; Status UNV Insulin Aspart (NovoLOG SUPPLEMENTAL SCALE) 1 ACHS SLIDING SCALE SQ ; Start 03/15 at 11:00; Status UNV Family History Deny any past family history. Social History Patient is homeless. He uses crack cocaine. Denies any alcohol or tobacco use. Physical Exam Vital Signs Vital Signs Date Time Temp Pulse Resp B/P Pulse Ox O2 Delivery O2 Flow Rate FiO2 10/08/16 07:18 91 18 106/59 96 Room Air 10/08/16 07:18 91 18 96 Room Air 10/08/16 04:54 95 10/08/16 04:17 98.0 93 18 123/64 99 Room Air Physical Exam GENERAL: This is a very thin male in NAD. SKIN: Right gluteal wound with granulation tissue. No discharge noted. HEAD: Atraumatic. Normocephalic. No temporal or scalp tenderness. EYES: Pupils equal round and reactive. Extraocular motions intact. No scleral icterus. No injection or drainage. ENT: Nose without bleeding, purulent drainage or septal hematoma. Throat without erythema, tonsillar hypertrophy or exudate. Uvula midline. Airway patent. NECK: Trachea midline. No JVD or lymphadenopathy. Supple, nontender, no meningeal signs. CARDIOVASCULAR: Regular rate and rhythm without murmurs, gallops, or rubs. RESPIRATORY: Clear to auscultation. Breath sounds equal bilaterally. No wheezes , rales, or rhonchi. GASTROINTESTINAL: Abdomen soft, non-tender, nondistended. No hepato-splenomegaly , or palpable masses. No guarding. MUSCULOSKELETAL: Extremities without clubbing, cyanosis, or edema. No joint tenderness, effusion, or edema noted. No calf tenderness. Negative Homans sign bilaterally. NEUROLOGICAL: Awake and alert. Cranial nerves II through XII intact. Motor and sensory grossly within normal limits. Five out of 5 muscle strength in all muscle groups. Normal speech. Laboratory Laboratory Tests Test 10/08/16 10/08/16 10/08/16 04:50 04:53 05:05 White Blood Count 11.4 Red Blood Count 4.75 Hemoglobin 12.1 Hematocrit 38.8 Mean Corpuscular Volume 81.5 Mean Corpuscular Hemoglobin 25.4 Mean Corpuscular Hemoglobin 31.2 Concent Red Cell Distribution Width 14.0 Platelet Count 217 Mean Platelet Volume 10.2 Neutrophils (%) (Auto) 77.8 Lymphocytes (%) (Auto) 8.6 Monocytes (%) (Auto) 10.3 Eosinophils (%) (Auto) 2.9 Basophils (%) (Auto) 0.4 Neutrophils # (Auto) 8.9 Lymphocytes # (Auto) 1.0 Monocytes # (Auto) 1.2 Eosinophils # (Auto) 0.3 Basophils # (Auto) 0.0 CBC Comment DIFF FINAL Differential Comment Prothrombin Time 10.2 Prothromb Time International 0.9 Ratio Activated Partial 28.2 Thromboplast Time Sodium Level 125 Potassium Level 5.3 Chloride Level 91 Carbon Dioxide Level 23.5 Anion Gap 11 Blood Urea Nitrogen 34 Creatinine 1.57 Estimat Glomerular Filtration 57 Rate Random Glucose 810 Lactic Acid Level 2.2 Calcium Level 8.3 Magnesium Level 1.9 Total Bilirubin 0.4 Aspartate Amino Transf 37 (AST/SGOT) Alanine Aminotransferase 87 (ALT/SGPT) Alkaline Phosphatase 126 Total Creatine Kinase 72 Troponin I LESS THAN 0.02 C-Reactive Protein 0.80 B-Type Natriuretic Peptide 157 Total Protein 6.6 Albumin 2.4 Lipase 263 Venous Blood pH 7.34 Urine Color LIGHT-YELLOW Urine Turbidity CLEAR Urine pH 5.0 Urine Specific [place] 1.018 Urine Protein NEG Urine Glucose (UA) 1000 Urine Ketones NEG Urine Occult Blood NEG Urine Nitrite NEG Urine Bilirubin NEG Urine Urobilinogen LESS THAN 2.0 Urine Leukocyte Esterase NEG Urine WBC LESS THAN 1 Urine Squamous Epithelial <1 Cells Urine Bacteria RARE Urine Mucus FEW Microscopic Urinalysis Comment CULT NOT INDICATED Date/Time Procedure Status Source Growth 10/08/16 05:30 Gram Stain Received Wound Buttock Pending 10/08/16 05:30 Wound Culture Received Wound Buttock Pending 10/08/16 05:00 Aerobic Blood Culture Received Blood Peripheral Pending 10/08/16 05:00 Anaerobic Blood Culture Received Blood Peripheral Pending Result Diagram: 10/08/160 10/08/16 0450 Assessment and Plan Assessment and Plan This is a 51-year-old male past medical history of type 2 diabetes, recent admission due to PEA arrest secondary to crack cocaine use, hepatitis C, noncompliance who presented with fatigue Acute renal failure -Most likely secondary to dehydration since patient had decreased by mouth intake and continues to use crack cocaine. He appears dehydrated. -Last creatinine on 09/22 1.07 now 1.57. -Patient was given 2 boluses of normal saline in the ED. Will start IV fluids but be cautious secondary to cardiomyopathy and heart failure. -Strict ins and outs. Avoid nephrotoxins. His potassium is mildly elevated. Will repeat potassium and if elevated will give a dose of Kayexalate. -Monitor on telemetry. Gluteal stress ulcer -I did not note any infection and he does have good granulation. -Will consult Wound Care for further recommendation. Status post PEA arrest secondary to crack cocaine use/Cardiomyopathy/acute systolic CHFEF 35-40%, mod-severe MR, Mild TR/hypertension -Resume home medication. For now hold Lasix. May resume Lasix tomorrow if creatinines improved. History of hepatitis C -Noncompliant. -Currently using crack cocaine so not a candidate for treatment. -Follow-up as outpatient. Type 2 diabetes, uncontrolled -Noncompliance. Patient is not in DKA. On initial presentation sugars in 800. Patient did not obtain any of his medication. -Start patient on Levemir. Will add an insulin sliding scale. A 7 x 6 mm nodule right upper lobe. -Patient will need a follow-up CT scan of the chest in 2 months to monitor for stability. -Patient is aware of this but is noncompliant. Homelessness -Most likely secondary to patient's drug abuse with crack cocaine. -Consult case management. Noncompliance -During patient's last admission he does have patient assistance. -Consult case management. DVT prophylaxis -Heparin renally dose. Code Status full Discussed Condition With patient Physician Certification 2 Midnight Certification Type: Admission for Inpatient Services Order for Inpatient Services The services are ordered in accordance with Medicare regulations or non- Medicare payer requirements, as applicable. In the case of services not specified as inpatient-only, they are appropriately provided as inpatient services in accordance with the 2-midnight benchmark. Estimated LOS (days): 2 2 days is the estimated time the patient will need to remain in the hospital, assuming treatment plan goals are met and no additional complications. Post-Hospital Plan: Tomasa Haley MD Oct 08, 2016 10:00
--- NOTE | 2016-10-08 10:02 | EKG ---
Date Performed: 10/08/2016 Time Performed: 05:40:31 PTAGE: 51 years EKG: Sinus rhythm POSSIBLE LEFT ATRIAL ENLARGEMENT POSSIBLE LEFT VENTRICULAR HYPERTROPHY TALL PEAKED T-WAVES, SUGGESTS HYPERKALEMIA ANTEROLATERAL ST ELEVATION, NO RECIPROCAL CHANGES ABNORMAL ECG PREVIOUS TRACING : 03/05/2015 20.12 Compared to the previous tracing peaked T waves and anterol ateral ST elevation present DOCTOR: Rogerio Dahl Interpretating Date/Time 10/08/2016 10:00:23
[2016-10-08] MEDS ORDERED: GLUCAGON 1 MG/ML VIAL OTHER PRN ×2 (10:15→13:15)
[2016-10-08] MEDS ORDERED: DEXTROSE 50% IN WATER 50 ML VIAL(D50) IV PRN ×2 (10:15→13:15)
[2016-10-08] MEDS ORDERED: INSULIN ASPART SUPPLEMENTAL SCALE SQ SCH ×2 (11:00→13:45)
[2016-10-08] MEDS ORDERED: SODIUM CHLOR 0.9% 1000 ML INJ 1,000 ML IV SCH (11:30)
[2016-10-08] MEDS ORDERED: PIPERACIL-TAZO 4.5 GM PREMIX 100 ML IV SCH (12:00)
[2016-10-08] MEDS ORDERED: FUROSEMIDE 20 MG TAB PO SCH (12:00)
[2016-10-08] MEDS ORDERED: ERGOCALCIFEROL (VIT D2) 50,000 UNIT CAP PO SCH (12:00)
[2016-10-08] MEDS ORDERED: INSULIN DETEMIR 100 UNITS/ML VIAL SQ SCH (12:00)
[2016-10-08 12:02] LABS: BICARBONATE 24.6 MEQ/L (21.0-32.0); POTASSIUM 5.5 MEQ/L (3.5-5.1)
[2016-10-08] MEDS: ASPIRIN 81 MG CHEW TAB PO SCH (12:48)
[2016-10-08] MEDS: amLODIPine BESYLATE 5 MG TAB PO SCH (12:48)
[2016-10-08] MEDS: CARVEDILOL 6.25 MG TAB PO SCH ×2 (12:48→21:16)
[2016-10-08] MEDS: INSULIN ASPART SUPPLEMENTAL SCALE SQ SCH ×2 (16:00→21:26)
[2016-10-08] MEDS: HEPARIN SODIUM - SQ 10,000 UNITS/ML VIAL SQ SCH (21:17)
[2016-10-08] MEDS: INSULIN DETEMIR 100 UNITS/ML VIAL SQ SCH (21:27)
[2016-10-09] VITALS: BP 139/62; PULSE 75; RESP 20; TEMP 97.2; O2SAT 98
[2016-10-09 04:00] VITALS: BP 113/67; PULSE 76; RESP 22; TEMP 97.2; O2SAT 99
[2016-10-09] MEDS: INSULIN ASPART SUPPLEMENTAL SCALE SQ SCH ×2 (06:48→11:00)
[2016-10-09 08:00] VITALS: BP 111/70; PULSE 71; RESP 20; TEMP 98; O2SAT 99
[2016-10-09] MEDS: SODIUM CHLORIDE 0.9% FLUSH 10 ML FLUSH IV FLUSH SCH (09:42)
[2016-10-09] MEDS: amLODIPine BESYLATE 5 MG TAB PO SCH (09:43)
[2016-10-09] MEDS: CARVEDILOL 6.25 MG TAB PO SCH (09:43)
[2016-10-09] MEDS: ASPIRIN 81 MG CHEW TAB PO SCH (09:43)
[2016-10-09] MEDS: HEPARIN SODIUM - SQ 10,000 UNITS/ML VIAL SQ SCH (09:44)
[2016-10-09] MEDS: INSULIN DETEMIR 100 UNITS/ML VIAL SQ SCH (09:47)
[2016-10-09 10:05] LABS: AUTOMATED NEUTROPHIL # 5.9 TH/MM3 (1.8-7.7); BASOPHIL % 0.4 % (0.0-2.0); EOSINOPHIL # 0.4 TH/MM3 (0-0.4); EOSINOPHIL % 5.1 % (0.0-4.0); HEMATOCRIT 42.6 % (39.0-51.0); HEMO FLAGS DIFF FINAL; LYMPH % 15.3 % (9.0-44.0); LYMPHOCYTE # 1.3 TH/MM3 (1.0-4.8); MEAN CELL VOLUME 79.2 FL (80.0-100.0); MEAN CORPUSCULAR HEMOGLOBIN 25.4 PG (27.0-34.0); MEAN CORPUSCULAR HGB CONC 32.1 % (32.0-36.0); MONO % 10.3 % (0.0-8.0); NEUT % 68.9 % (16.0-70.0); PLATELET COUNT 225 TH/MM3 (150-450); RED BLOOD COUNT 5.38 MIL/MM3 (4.50-5.90); RED CELL DISTRIBUTION WIDTH 14.3 % (11.6-17.2); WHITE BLOOD COUNT 8.6 TH/MM3 (4.0-11.0)
[2016-10-09 10:36] LABS: BICARBONATE 26.3 MEQ/L (21.0-32.0); POTASSIUM 4.5 MEQ/L (3.5-5.1)
[2016-10-09 12:00] VITALS: BP 120/71; PULSE 98; RESP 20; TEMP 97.9; O2SAT 98
[2016-10-09 12:55] VITALS: PULSE 71
--- NOTE | 2016-10-09 13:11 | PD.WCN.NOT ---
Wound Consult Description: "Pressure ulcer consult for Sacral decub" per Dr Ordaz Communicated with: Dr Mitch Mcbride,RN Recommendation: Plastics consult for I&D with debridement Change dressing to unstageable wound with Maxorb II secured with foam adhesive dressing PRN when soiled Apply skin prep to left heel Deep Tissue Injury BID and PRN to keep DRY Encourage patient to float left heel off mattress surface while in bed by placing a pillow underneath the left calf Additional Information: Patient seen with JOSE Tan on [address] [place] for sacral/coccyx/right buttock unstageable pressure injury noted on this admission. Patient was sitting up in bed eating lunch with legs dangling and feet on floor when creative services writer entered room. Spoke with patient regarding wound and etiology. Patient states that the wound was from his last admission in the intensive care unit. Patient states that he can stand for assessment. Patient stood up independently and creative services writer removed towel from around buttocks. The right buttock, sacrum, coccyx, and gluteal cleft are noted with an unstageable indurated wound measuring ~12cm x ~10cm x slough with minimal active purulent sanguinous drainage coming from within the wound bed of adherent yellow/brown slough. Periwound is warm to touch, indurated , and noted with pink scar tissue. Distally within the periwound <4cm from wound margins there are 2 full thickness skin loss areas @9 o'clock and 6 o' clock both measuring ~1 cm circumferentially. When wound and periwound are gently pressed increased drainage is noted. Patient was instructed to lie down in bed for cleansing and dressing application. Wound and periwound was cleansed with NS and gauze. Periwound was skin prepped using Cavilon barrier film. Maxorb II was applied over unstageable right buttock wound and secured with an adhesive foam dressing covering all wounds that may remain in place until soiled or dislodged. Patient was also noted with an intact blood blister indicating a DTI to the left posterior heel measuring 5cm x 4.5cm that was skin prepped and left open to air. Kiya Ruano [facility] Oct 09, 2016 13:11
--- NOTE | 2016-10-09 14:20 | HHI.PR ---
Subjective Remarks Pt denies any pain at this time. denies any CP/SOB/N/V tolerating a diet Objective Vitals Vital Signs Date Time Temp Pulse Resp B/P Pulse Ox O2 Delivery O2 Flow Rate FiO2 10/09/16 12:55 71 10/09/16 12:00 97.9 98 20 120/71 98 10/09/16 08:00 98.0 71 20 111/70 99 10/09/16 04:00 97.2 76 22 113/67 99 10/09/16 00:00 97.2 75 20 139/62 98 10/08/16 20:00 79 10/08/16 20:00 98.3 79 20 127/78 100 10/08/16 16:30 97.8 70 14 139/81 96 I/O 10/08/16 10/08/16 10/08/16 10/09/16 10/09/16 10/09/16 07:00 15:00 23:00 07:00 15:00 23:00 Intake Total 1100 ml 816 ml Output Total 950 ml 2000 ml 1000 ml Balance 150 ml -1184 ml -1000 ml Intake Oral 240 ml IV Total 1100 ml 576 ml Output Urine Total 950 ml 2000 ml 1000 ml # Voids 2 # Bowel Movements 0 Result Diagram: 10/09/1672210/09/16722 Objective Remarks GENERAL: This is a very thin male in NAD. SKIN: Right gluteal wound with granulation tissue, indurated, area of necrosis noted. foul smell also noted. no drainage noted at this time. HEAD: Atraumatic. Normocephalic. EYES: Extraocular motions intact. ENT: Nose without bleeding. Airway patent. NECK: Trachea midline. CARDIOVASCULAR: Regular rate and rhythm with 1-2/6 murmurs RESPIRATORY: Clear to auscultation. Breath sounds equal bilaterally. No wheezes GASTROINTESTINAL: Abdomen soft, non-tender, nondistended. No guarding. MUSCULOSKELETAL: Extremities without edema. NEUROLOGICAL: Awake and alert. Cranial nerves II through XII grossly intact. Motor and sensory grossly within normal limits. A/P Assessment and Plan This is a 51-year-old male past medical history of type 2 diabetes, recent admission due to PEA arrest secondary to crack cocaine use, hepatitis C, noncompliance who presented with fatigue Acute renal failure -Most likely secondary to dehydration since patient had decreased by mouth intake and continues to use crack cocaine. -Last creatinine on 09/22 1.07, 1.57 on admission now down to 0.77. -Patient was given 2 boluses of normal saline in the ED. and was on IVFs which have been stopped. -Strict ins and outs. Avoid nephrotoxins. His potassium is mildly elevated on admission but now resolved. Gluteal stress ulcer -area of necrosis noted but no drainage but does have a foul odor. Discussed w caramel cutter hand, wound is unstageable and there was active drainage when she evaluated it, she recommends plastic sx consult. I have placed consult -Appreciate recs from caramel cutter hand Status post PEA arrest secondary to crack cocaine use/Cardiomyopathy/acute systolic CHFEF 35-40%, mod-severe MR, Mild TR/hypertension -Resume home medication. resume Lasix as creatinines improved. History of hepatitis C -Noncompliant. -Currently using crack cocaine so not a candidate for treatment. -Follow-up as outpatient. Type 2 diabetes, uncontrolled -Noncompliance. Patient is not in DKA. On initial presentation sugars in 800. Patient did not obtain any of his medication. -patient started on Levemir and insulin sliding scale. BS much improved A 7 x 6 mm nodule right upper lobe. -Patient will need a follow-up CT scan of the chest in 2 months to monitor for stability. -Patient is aware of this but is noncompliant. Homelessness -Most likely secondary to patient's drug abuse with crack cocaine. -Case management consult in place. Noncompliance -During patient's last admission he does have patient assistance. -see CM consult above DVT prophylaxis -Heparin renally dose. Discharge Planning plastic sx consulted. awaiting recs Elda Meyer MD Oct 09, 2016 14:20
[2016-10-09 16:00] VITALS: BP 124/66; PULSE 72; RESP 20; TEMP 98.5; O2SAT 98
[2016-10-09 17:11] LABS: HEMOGLOBIN A1a 1.8 %; HEMOGLOBIN A1b 1.3 %; HEMOGLOBIN Ao 70.5 %; HEMOGLOBIN F 2.1 %; HEMOGLOBIN LA1C 5.8 %; HEMOGLOBIN P3 6.9 %
--- NOTE | 2016-10-10 13:10 | HHI.PR ---
Addendum to Inpatient Note Addendum Reason: Additional Documentation Additional Information Late entry Patient Laci Kahn Jr decided late yesterday evening to leave the hospital against medical advice. This patient has the capacity to refuse care and understands the risks of leaving, including permanent disability and/or , and has had an opportunity to ask questions about his condition. The patient has been informed that he may return for care at any time, and follow up has been arranged/advised. Of note, pt has a buttock/sacral wound which cannot be staged at this time, indurated wound, draining foul purulent drainage . 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 [facility] was consulted however I was informed that they declined the consult due to location of wound. In the event pt returns to the hospital, he will need to be transferred out to another facility w plastic sx or wound care physician on staff. Elda Meyer MD Oct 10, 2016 13:10
== END 2016-10-09 17:35 | disposition left against medical advice (07) | DRG 682 ==
LOC: NEPE 04:15 → NEDA 06:36 → N04A 16:33
PROVIDERS: ADMIT Hospitalist; ATTEND Hospitalist
DX: N17.9 Acute kidney failure, unspecified (principal); L89.153 Pressure ulcer of sacral region, stage 3; L89.309 Pressure ulcer of unspecified buttock, unspecified stage; I42.9 Cardiomyopathy, unspecified; E86.0 Dehydration; E11.65 Type 2 diabetes mellitus with hyperglycemia; F14.10 Cocaine abuse, uncomplicated; I10 Essential (primary) hypertension; I25.2 Old myocardial infarction; Z86.74 Personal history of sudden cardiac arrest; Z59.0 Homelessness; Z91.14 Patient's other noncompliance with medication regimen; Z91.19 Patient's noncompliance with other medical treatment and regimen; H40.9 Unspecified glaucoma; B19.20 Unspecified viral hepatitis C without hepatic coma; R91.8 Other nonspecific abnormal finding of lung field
CPT/HCPCS: 80048; 80053; 81001; 82550; 82800; 82947; 82948; 83036; 83605; 83690; 83735; 83880; 84484; 85025; 85610; 85730; 86140; 86403; 87040; 87070; 87077; 87186; 87205; 93005; 96360; 96372; J1644; J1815; J2543; J3370; J7030; J7050

== ENCOUNTER 2016-10-10 08:54 | Emergency (ER) | payer SELFPAY ==
[~2016-10-10] VITALS: Ht 170.2 cm; Wt 62.3 kg
[2016-10-10 08:55] VITALS: BP 129/70; PULSE 83; RESP 17; TEMP 98.4; O2SAT 97
--- NOTE | 2016-10-10 09:50 | PD ---
HPI . Suicidal ideation Chief Complaint: Psychiatric Symptoms Time Seen by Provider: 09:26 Travel History International Travel<30 days: No Contact w/Intl Traveler<30days: No Traveled to known affect area: No History of Present Illness HPI This patient presents with the chief complaint of suicidal ideation. He states that his plan is to smoking of crack to kill himself. However, he is out of crack. Patient reports that he was brought to the emergency department by police however, the patient presented to us through the front door. He is not under a Cast Act. Patient reports the onset of his symptoms today. No modifying factor. This patient was seen here on 10/08 with a decubitus ulcer on his right buttock. He was found to be hyperglycemic. He was treated with vancomycin, Zosyn and insulin. Arrangements were made for him to be admitted to the hospital. However, he subsequently signed out AMA. His white blood count at that time was 11.4. Wound culture showed mixed rebecca. Furthermore, this patient had a recent PEA cardiac arrest. That was on September 16 PFSH Past Medical History Asthma: No Blood Disorders: No Anxiety: No Depression: No Heart Rhythm Problems: No Cancer: No Cardiovascular Problems: Yes (MS, HTN ) Chemotherapy: No Chest Pain: Yes Congestive Heart Failure: No COPD: No Diabetes: Yes Patient Takes Glucophage: No Diminished Hearing: No Endocrine: Yes Gastrointestinal Disorders: No Genitourinary: No Hepatitis: No Hiatal Hernia: No Hypertension: Yes Immune Disorder: No Musculoskeletal: No Neurologic: No Psychiatric: Yes Reproductive: No Respiratory: No Myocardial Infarction: Yes (09/13) Radiation Therapy: No Sleep Apnea: No Thyroid Disease: No Tetanus Vaccination: Unknown Influenza Vaccination: No Past Surgical History Abdominal Surgery: Yes (R INGUINAL HERNIA REPAIR IN CHILDHOOD) AICD: No Joint Replacement: No Pacemaker: No Other Surgery: Yes (HERNIA REPAIR) Social History Alcohol Use: No Tobacco Use: No Substance Use: Yes (Crack-LAST USED yesterday) Allergies-Medications (Allergen,Severity, Reaction): Coded Allergies: No Known Allergies (Unverified , 10/10/16) UNOBTAINABLE (Unverified , 10/10/16) Reported Meds & Prescriptions Reported Meds & Active Scripts Active Furosemide 20 Mg Tab 20 Mg PO DAILY Ergocalciferol 50,000 Unit Cap 50,000 Units PO Q7D Coreg (Carvedilol) 6.25 Mg Tab 6.25 Mg PO Q12HR Aspirin Low Strength (Aspirin) 81 Mg Chew 81 Mg PO DAILY Norvasc (Amlodipine Besylate) 5 Mg Tab 5 Mg PO DAILY Review of Systems Except as stated in HPI: all other systems reviewed are Neg General / Constitutional: No: Fever, Chills Psychiatric: Positive: Suicidal Ideations, Substance Abuse Physical Exam Narrative GENERAL: Awake and alert and in no acute distress. He is very thin. SKIN: Warm and dry. He has a decubitus ulcer on the right buttock. It is covered by a Duoderm dressing. HEAD: Atraumatic. Normocephalic. EYES: Pupils equal and round. Extraocular movements are intact. NECK: Trachea midline. CARDIOVASCULAR: Regular rate and rhythm. RESPIRATORY: No accessory muscle use. MUSCULOSKELETAL: No obvious deformities. No edema. NEUROLOGICAL: Awake and alert. No obvious cranial nerve deficits. Motor grossly within normal limits. Normal speech. PSYCHIATRIC: Appropriate mood and affect; insight and judgment normal. Data Data Last Documented VS Vital Signs Date Time Temp Pulse Resp B/P Pulse Ox O2 Delivery O2 Flow Rate FiO2 10/10/16 08:55 98.4 83 17 129/70 97 Room Air Orders Drug Screen, Random Urine (10/10/16 09:28) Alcohol (Ethanol) (10/10/16 09:28) Complete Blood Count With Diff (10/10/16 09:44) Basic Metabolic Panel (Bmp) (10/10/16 09:44) Diet Diabetic (10/10/16 Lunch) Sodium Chlor 0.9% 1000 Ml Inj (Ns 1000 M (10/10/16 12:45) Insulin Human Regular Inj (Novolin R Inj (10/10/16 12:45) Labs Laboratory Tests Test 10/10/16 10/10/16 09:32 09:40 Sodium Level 124 MEQ/L Potassium Level 4.6 MEQ/L Chloride Level 89 MEQ/L Carbon Dioxide Level 23.2 MEQ/L Anion Gap 12 MEQ/L Blood Urea Nitrogen 25 MG/DL Creatinine 1.43 MG/DL Estimat Glomerular Filtration 63 ML/MIN Rate Random Glucose 807 MG/DL Calcium Level 8.8 MG/DL Ethyl Alcohol Level LESS THAN 3 MG/DL White Blood Count 7.4 TH/MM3 Red Blood Count 4.87 MIL/MM3 Hemoglobin 12.4 GM/DL Hematocrit 40.1 % Mean Corpuscular Volume 82.3 FL Mean Corpuscular Hemoglobin 25.5 PG Mean Corpuscular Hemoglobin 31.0 % Concent Red Cell Distribution Width 14.3 % Platelet Count 211 TH/MM3 Mean Platelet Volume 10.0 FL Neutrophils (%) (Auto) 65.6 % Lymphocytes (%) (Auto) 15.8 % Monocytes (%) (Auto) 13.1 % Eosinophils (%) (Auto) 5.1 % Basophils (%) (Auto) 0.4 % Neutrophils # (Auto) 4.9 TH/MM3 Lymphocytes # (Auto) 1.2 TH/MM3 Monocytes # (Auto) 1.0 TH/MM3 Eosinophils # (Auto) 0.4 TH/MM3 Basophils # (Auto) 0.0 TH/MM3 CBC Comment DIFF FINAL Differential Comment Urine Opiates Screen NEG Urine Barbiturates Screen NEG Urine Amphetamines Screen NEG Urine Benzodiazepines Screen NEG Urine Cocaine Screen POS Urine Cannabinoids Screen NEG MDM Medical Decision Making Medical Screen Exam Complete: Yes Emergency Medical Condition: Yes Medical Record Reviewed: Yes (please see the history of present illness for pertinent items learned from review of records.) Differential Diagnosis Differential diagnosis includes but is not limited to depression with suicidal gesture, suicide attempt, suicidal ideation, attention seeking behavior. Narrative Course This patient presents with the chief complaint of suicidal ideation. However, he was here less than 48 hours ago with an infected decubitus ulcer on his right buttock and hyperglycemia. Arrangements were made for admission to the hospital. Therefore, I have ordered a CBC and BMP to make sure that he is medically clear for psychiatric evaluation. CBC Diagram 10/10/16 09:40 BMP Diagram 10/10/16 09:32 This patient is not medically clear for psychiatric admission. Medicine will be consult. I discussed the case with the MARICRUZ for [facility]. She told me that there was no one here who could take care of the man's wound. There was no physician for the wound care center and there was no plastic surgeon available. Therefore, the patient needs to be transferred to an outside hospital. The patient is absolutely refusing this and is going to sign out AMA. The complication of severe sepsis and has been discussed with the patient. Diagnosis Primary Impression: Hyperglycemia Additional Impressions: Hyponatremia Decubitus ulcer of right buttock, unstageable Disposition: 07 AGAINST MEDICAL ADVICE Condition: Stable Ely Quintana MD Oct 10, 2016 09:50
[2016-10-10 10:12] LABS: AUTOMATED NEUTROPHIL # 4.9 TH/MM3 (1.8-7.7); BASOPHIL % 0.4 % (0.0-2.0); EOSINOPHIL # 0.4 TH/MM3 (0-0.4); EOSINOPHIL % 5.1 % (0.0-4.0); HEMATOCRIT 40.1 % (39.0-51.0); HEMO FLAGS DIFF FINAL; LYMPH % 15.8 % (9.0-44.0); LYMPHOCYTE # 1.2 TH/MM3 (1.0-4.8); MEAN CELL VOLUME 82.3 FL (80.0-100.0); MEAN CORPUSCULAR HEMOGLOBIN 25.5 PG (27.0-34.0); MONO % 13.1 % (0.0-8.0); NEUT % 65.6 % (16.0-70.0); PLATELET COUNT 211 TH/MM3 (150-450); RED BLOOD COUNT 4.87 MIL/MM3 (4.50-5.90); RED CELL DISTRIBUTION WIDTH 14.3 % (11.6-17.2); WHITE BLOOD COUNT 7.4 TH/MM3 (4.0-11.0)
[2016-10-10 10:28] LABS: AMPHETAMINE, URINE NEG (NEG); BARBITURATES, URINE NEG (NEG); COCAINE, URINE POS (NEG)
[2016-10-10 12:05] LABS: BICARBONATE 23.2 MEQ/L (21.0-32.0); POTASSIUM 4.6 MEQ/L (3.5-5.1)
[2016-10-10] MEDS ORDERED: SODIUM CHLOR 0.9% 1000 ML INJ 1,000 ML IV ONE (12:45)
[2016-10-10] MEDS ORDERED: INSULIN HUMAN REGULAR 1,000 UNITS/10 ML VIAL SQ ONE (12:45)
== END 2016-10-10 14:17 | disposition left against medical advice (07) ==
LOC: NEPC 08:54
DX: E11.65 Type 2 diabetes mellitus with hyperglycemia (principal); E87.1 Hypo-osmolality and hyponatremia; L89.310 Pressure ulcer of right buttock, unstageable; Z79.82 Long term (current) use of aspirin; Z79.899 Other long term (current) drug therapy
CPT/HCPCS: 80048; 80307; 85025; 96372; 99284; J1815

== ENCOUNTER 2016-10-15 14:48 | Inpatient (IN) | payer SELFPAY ==
[~2016-10-15] VITALS: Ht 170.2 cm; Wt 58.5 kg
[2016-10-15 14:52] VITALS: BP 124/75; PULSE 85; RESP 16; TEMP 98.9; O2SAT 96
[2016-10-15] MEDS ORDERED: SODIUM CHLOR 0.9% 1000 ML INJ 1,000 ML IV ONE ×3 (15:15→15:45)
--- NOTE | 2016-10-15 15:52 | PD ---
HPI Chief Complaint: Diabetic Time Seen by Provider: 15:34 Travel History International Travel<30 days: No Contact w/Intl Traveler<30days: No Traveled to known affect area: No History of Present Illness HPI 51-year-old male complains of elevated blood sugar and decubitus ulcer right buttock. Patient has history of type 2 diabetes. Patient states that he ran out of oral medication since yesterday. Patient has history of cardiac arrest secondary to crack cocaine use recently, hepatitis C, noncompliance. Patient also has history of right gluteal stress ulcer. Patient states that he is homeless and does not have a local physician for follow-up. Patient was admitted to [facility] October 08 and left AMA October 09. Patient has not follow with any physician since then. Patient denies any headache. Patient denies any chest pain or shortness of breath. Patient denies abdominal pain. Patient denies any nausea vomiting diarrhea. Patient denies any fever chills. PFSH Past Medical History Asthma: No Blood Disorders: No Anxiety: No Depression: No Heart Rhythm Problems: No Cancer: No Cardiovascular Problems: Yes (CT, HTN ) Chemotherapy: No Chest Pain: Yes Congestive Heart Failure: No COPD: No Diabetes: Yes Patient Takes Glucophage: No Diminished Hearing: No Endocrine: Yes Gastrointestinal Disorders: No Genitourinary: No Hepatitis: No Hiatal Hernia: No Hypertension: Yes Immune Disorder: No Musculoskeletal: No Neurologic: No Psychiatric: Yes Reproductive: No Respiratory: No Myocardial Infarction: Yes (09/13) Radiation Therapy: No Sleep Apnea: No Thyroid Disease: No Tetanus Vaccination: > 5 Years Influenza Vaccination: No Past Surgical History Abdominal Surgery: Yes (R INGUINAL HERNIA REPAIR IN CHILDHOOD) AICD: No Joint Replacement: No Pacemaker: No Other Surgery: Yes (HERNIA REPAIR) Social History Alcohol Use: No (pt denies) Tobacco Use: No (pt denies ) Substance Use: Yes ([facility]) Allergies-Medications (Allergen,Severity, Reaction): Coded Allergies: *MDRO Multi-Drug Resistant Organism (Verified Adverse Reaction, Unknown, ) 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 Reported Meds & Prescriptions Reported Meds & Active Scripts Active Furosemide 20 Mg Tab 20 Mg PO DAILY Ergocalciferol 50,000 Unit Cap 50,000 Units PO Q7D Coreg (Carvedilol) 6.25 Mg Tab 6.25 Mg PO Q12HR Aspirin Low Strength (Aspirin) 81 Mg Chew 81 Mg PO DAILY Norvasc (Amlodipine Besylate) 5 Mg Tab 5 Mg PO DAILY Review of Systems General / Constitutional: No: Fever Eyes: No: Visual changes HENT: No: Headaches Cardiovascular: No: Chest Pain or Discomfort Respiratory: No: Shortness of Breath Gastrointestinal: No: Abdominal Pain Genitourinary: No: Dysuria Musculoskeletal: No: Pain Skin: No Rash Neurologic: No: Weakness Psychiatric: No: Depression Endocrine: No: Polydipsia Hematologic/Lymphatic: No: Easy Bruising Physical Exam Narrative GENERAL: Well-nourished, well-developed patient. SKIN: Focused skin assessment warm/dry. Patient has a large stress ulcer on right gluteal area. No drainage noted. Head: normocephalic. EYES: No scleral icterus. No injection or drainage. NECK: Supple, trachea midline. No JVD or lymphadenopathy. No meningismus CARDIOVASCULAR: Regular rate and rhythm without murmurs, gallops, or rubs. RESPIRATORY: Breath sounds equal bilaterally. No accessory muscle use. GASTROINTESTINAL: Abdomen soft, non-tender, nondistended. MUSCULOSKELETAL: No cyanosis, or edema. BACK: Nontender without obvious deformity. No CVA tenderness. Neurologic exam: Patient is lethargic however answer questions appropriately. No obvious focal neurological deficit. Data Data Last Documented VS Vital Signs Date Time Temp Pulse Resp B/P Pulse Ox O2 Delivery O2 Flow Rate FiO2 10/15/16 17:00 97.8 89 20 119/77 99 Room Air Orders Electrocardiogram (10/15/16 ) Urinalysis - C+S If Indicated (10/15/16 15:07) Complete Blood Count With Diff (10/15/16 15:07) Comprehensive Metabolic Panel (10/15/16 15:07) Beta Hydroxybutyrate (Acetone) (10/15/16 15:07) Blood Culture (10/15/16 15:13) Wound Culture And Gram Stain (10/15/16 15:13) Lactic Acid Sepsis Protocol (10/15/16 15:13) Sodium Chlor 0.9% 1000 Ml Inj (Ns 1000 M (10/15/16 15:15) Iv Access Insert/Monitor (10/15/16 15:13) Sodium Chlor 0.9% 1000 Ml Inj (Ns 1000 M (10/15/16 15:15) Sodium Chlor 0.9% 1000 Ml Inj (Ns 1000 M (10/15/16 15:45) Drug Screen, Random Urine (10/15/16 15:44) Sodium Chlor 0.9% 1000 Ml Inj (Ns 1000 M (10/15/16 17:15) Insulin Human Regular Inj (Novolin R Inj (10/15/16 17:15) Admit Order (Ed Use Only) (10/15/16 17:50) Admit To Inpatient (10/15/16 ) Code Status (10/15/16 17:39) Vital Signs (Adult) Q4H (10/15/16 17:39) Neuro Checks Q4H (10/15/16 17:39) Activity Bed Rest (10/15/16 17:39) [employer] / Telemetry .CONTINUOUS (10/15/16 17:39) Diet Npo (10/15/16 Dinner) Sodium Chloride 0.9% Flush (Ns Flush) (10/15/16 17:45) Sodium Chloride 0.9% Flush (Ns Flush) (10/15/16 21:00) Case Management Consult (10/15/16 17:39) Heparin Inj (Heparin Inj) (10/15/16 17:45) Scd Bilateral/Knee High ALBERTO.BID (10/15/16 17:39) Naloxone Inj (Narcan Inj) (10/15/16 17:45) Docusate Sodium-Senna (Rula-Colace) (10/15/16 21:00) Magnesium Hydroxide Liq (Milk Of Magnesi (10/15/16 17:45) Sennosides (Senokot) (10/15/16 17:45) Bisacodyl Supp (Dulcolax Supp) (10/15/16 17:45) Lactulose Liq (Lactulose Liq) (10/15/16 17:45) Inpatient Certification (10/15/16 ) ^ Insert Iv (10/15/16 17:39) ^ Teach Patient (10/15/16 17:39) Bedside Glucose ALBERTO.Q1H (10/15/16 17:39) Sodium Chlor 0.9% 1000 Ml Inj (Ns 1000 M (10/15/16 17:39) Dext 5%-Nacl 0.9% 1000 Ml Inj (D5w-Ns 10 (7/19/17 17:39) Insulin Regular (Iv Infusion) (Novolin R (10/15/16 17:45) Potassium Chlor 40 Meq Premix (Kcl 40 Me (10/15/16 17:45) Potassium Chlor 40 Meq Premix (Kcl 40 Me (10/15/16 17:45) Potassium Chlor 20 Meq Premix (Kcl 20 Me (10/15/16 17:45) Potassium Chlor 20 Meq Premix (Kcl 20 Me (10/15/16 17:45) Potassium Chlor 20 Meq Premix (Kcl 20 Me (10/15/16 17:45) Potassium Chlor 20 Meq Premix (Kcl 20 Me (10/15/16 17:45) Potassium Chlor 20 Meq Premix (Kcl 20 Me (10/15/16 17:45) Potassium Chlor 20 Meq Premix (Kcl 20 Me (10/15/16 17:45) Sodium Bicarbonate 8.4% Inj (Sodium Bica (10/15/16 17:45) Sodium Bicarbonate 8.4% Inj (Sodium Bica (10/15/16 17:45) Sodium Phosphate Inj (Sodium Phosphate I (10/15/16 17:45) Basic Metabolic Panel (Bmp) (10/15/16 22:39) Basic Metabolic Panel (Bmp) (10/16/16 04:39) Basic Metabolic Panel (Bmp) (10/16/16 10:39) Basic Metabolic Panel (Bmp) (10/16/16 16:39) Magnesium (Mg) (10/15/16 22:39) Magnesium (Mg) (10/16/16 04:39) Magnesium (Mg) (10/16/16 10:39) Magnesium (Mg) (10/16/16 16:39) Phosphorus (Po4) (10/15/16 22:39) Phosphorus (Po4) (10/16/16 04:39) Phosphorus (Po4) (10/16/16 10:39) Phosphorus (Po4) (10/16/16 16:39) Beta Hydroxybutyrate (Acetone) (10/16/16 04:39) Beta Hydroxybutyrate (Acetone) (10/16/16 16:39) Arterial Blood Gas (Abg) (10/15/16 ) ^ Initiate Protocol (10/15/16 17:39) Instruction (10/15/16 17:39) Misc Nursing Information (10/15/16 17:45) Chlorhexidine 2% Cloth (Chlorhexidine 2% (10/16/16 04:00) Chlorhexidine 2% Cloth (Chlorhexidine 2% (10/15/16 17:45) Mrsa Pcr Surveillance (10/15/16 17:39) Consult Wound / Ostomy Nurse (10/15/16 17:52) Alcohol (Ethanol) (10/15/16 17:54) Alcohol Withdrawal Asmt-Ciwa Q4HX18 (10/15/16 17:56) Flumazenil Inj (Romazicon Inj) (10/15/16 18:00) Lorazepam (Ativan) (10/15/16 18:00) Lorazepam Inj (Ativan Inj) (10/15/16 18:00) Lorazepam (Ativan) (10/15/16 18:00) Lorazepam Inj (Ativan Inj) (10/15/16 18:00) Lorazepam Inj (Ativan Inj) (10/15/16 18:00) Lorazepam Inj (Ativan Inj) (10/15/16 18:00) Ckmb (Isoenzyme) Profile (10/15/16 17:58) Ckmb (Isoenzyme) Profile (10/15/16 20:58) Ckmb (Isoenzyme) Profile (10/15/16 23:58) Troponin I (10/15/16 17:58) Troponin I (10/15/16 20:58) Troponin I (10/15/16 23:58) Electrocardiogram (10/15/16 18:00) Electrocardiogram (10/15/16 21:00) Electrocardiogram (10/16/16 00:00) Wound Culture And Gram Stain (10/15/16 18:02) Labs Laboratory Tests Test 10/15/16 10/15/16 10/15/16 10/15/16 15:20 15:23 16:10 18:03 Lactic Acid Level 1.7 mmol/L White Blood Count 6.1 TH/MM3 Red Blood Count 5.08 MIL/MM3 Hemoglobin 13.3 GM/DL Hematocrit 42.5 % Mean Corpuscular Volume 83.6 FL Mean Corpuscular Hemoglobin 26.1 PG Mean Corpuscular Hemoglobin 31.2 % Concent Red Cell Distribution Width 14.3 % Platelet Count 215 TH/MM3 Mean Platelet Volume 9.4 FL Neutrophils (%) (Auto) 66.7 % Lymphocytes (%) (Auto) 14.6 % Monocytes (%) (Auto) 13.3 % Eosinophils (%) (Auto) 5.0 % Basophils (%) (Auto) 0.4 % Neutrophils # (Auto) 4.1 TH/MM3 Lymphocytes # (Auto) 0.9 TH/MM3 Monocytes # (Auto) 0.8 TH/MM3 Eosinophils # (Auto) 0.3 TH/MM3 Basophils # (Auto) 0.0 TH/MM3 CBC Comment DIFF FINAL Differential Comment Sodium Level 119 MEQ/L Potassium Level 5.5 MEQ/L Chloride Level 83 MEQ/L Carbon Dioxide Level 28.3 MEQ/L Anion Gap 8 MEQ/L Blood Urea Nitrogen 30 MG/DL Creatinine 1.62 MG/DL Estimat Glomerular Filtration 55 ML/MIN Rate Random Glucose 851 MG/DL Calcium Level 8.9 MG/DL Total Bilirubin 0.7 MG/DL Aspartate Amino Transf 68 U/L (AST/SGOT) Alanine Aminotransferase 95 U/L (ALT/SGPT) Alkaline Phosphatase 187 U/L Total Protein 7.6 GM/DL Albumin 2.8 GM/DL B-Hydroxybutyrate 0.60 MMOL/L Urine Opiates Screen NEG Urine Barbiturates Screen NEG Urine Amphetamines Screen NEG Urine Benzodiazepines Screen NEG Urine Cocaine Screen POS Urine Cannabinoids Screen NEG Blood Gas Puncture Site RT RADIAL Blood Gas Patient Temperature 98.6 Blood Gas HCO3 25 mmol/L Blood Gas Base Excess 1.3 mmol/L Blood Gas Oxygen Saturation 96 % Arterial Blood pH 7.41 Arterial Blood Partial 41 mmHg Pressure CO2 Arterial Blood Partial 92 mmHG Pressure O2 Arterial Blood Oxygen Content 15.8 Vol % Arterial Blood 1.2 % Carboxyhemoglobin Arterial Blood Methemoglobin 0.6 % Blood Gas Hemoglobin 11.7 G/DL Blood Gas Inspired Oxygen 21 % MDM Medical Decision Making Medical Screen Exam Complete: Yes Emergency Medical Condition: Yes Interpretation(s) 1655 PM. CBC within normal limit. Sodium 119. Potassium 5.5. Slight hemolysis. Bicarbonate 28.3. BUN 30. Creatinine 1.62. Glucose 851. Left Triassic 1.7. AST 68. ALT 95. Apply phosphatase 187. Beta hydroxybutyrate 0.6. Differential Diagnosis Differential diagnosis including hyperglycemia, DKA, decubitus ulcer. Narrative Course 51-year-old male with history of diabetes and noncompliance. Patient also has decubitus ulcer right gluteal area. Blood sugar registered high. Normal saline solution 2 L IV bolus. Novolin R 6 units IV given. Normal saline solution 1 25 cc an hour. Diagnosis Primary Impression: Hypoglycemia after GI (gastrointestinal) surgery Additional Impressions: Hyperglycemia Hyponatremia Renal insufficiency Decubitus ulcer of right buttock, unstageable Admitting Information Admitting Physician Requests: Admit Michael Browning MD Oct 15, 2016 15:52
[2016-10-15 15:55] LABS: AUTOMATED NEUTROPHIL # 4.1 TH/MM3 (1.8-7.7); BASOPHIL % 0.4 % (0.0-2.0); EOSINOPHIL # 0.3 TH/MM3 (0-0.4); HEMATOCRIT 42.5 % (39.0-51.0); HEMO FLAGS DIFF FINAL; LYMPH % 14.6 % (9.0-44.0); LYMPHOCYTE # 0.9 TH/MM3 (1.0-4.8); MEAN CELL VOLUME 83.6 FL (80.0-100.0); MEAN CORPUSCULAR HEMOGLOBIN 26.1 PG (27.0-34.0); MEAN CORPUSCULAR HGB CONC 31.2 % (32.0-36.0); MONO % 13.3 % (0.0-8.0); NEUT % 66.7 % (16.0-70.0); PLATELET COUNT 215 TH/MM3 (150-450); RED BLOOD COUNT 5.08 MIL/MM3 (4.50-5.90); RED CELL DISTRIBUTION WIDTH 14.3 % (11.6-17.2); WHITE BLOOD COUNT 6.1 TH/MM3 (4.0-11.0)
[2016-10-15 16:22] LABS: ALT (GPT) 95 U/L (12-78); ANION GAP 8 MEQ/L (5-15); AST (GOT) 68 U/L (15-37); BICARBONATE 28.3 MEQ/L (21.0-32.0); BLOOD UREA NITROGEN 30 MG/DL (7-18); CHLORIDE 83 MEQ/L (98-107); GLOMERULAR FILTRATION RATE 55 ML/MIN (>89); TOTAL BILIRUBIN ADULT 0.7 MG/DL (0.2-1.0)
[2016-10-15 16:23] LABS: POTASSIUM 5.5 MEQ/L (3.5-5.1)
[2016-10-15 16:27] LABS: ALKALINE PHOSPHATASE 187 U/L (45-117); SODIUM (NA) 119 MEQ/L (136-145)
[2016-10-15 17:00] VITALS: BP 119/77; PULSE 89; RESP 20; TEMP 97.8; O2SAT 99
[2016-10-15] MEDS ORDERED: SODIUM CHLOR 0.9% 1000 ML INJ 1,000 ML IV SCH (17:15)
[2016-10-15] MEDS ORDERED: INSULIN HUMAN REGULAR 1,000 UNITS/10 ML VIAL IV PUSH ONE (17:15)
[2016-10-15 17:21] LABS: AMPHETAMINE, URINE NEG (NEG); BARBITURATES, URINE NEG (NEG); COCAINE, URINE POS (NEG)
--- NOTE | 2016-10-15 17:32 | HHI.HP ---
[facility] Service Family Medicine Primary Care Physician No Primary Care Physician Admission Diagnosis Diagnoses: (1) Hyperglycemia Diagnosis: Principal (2) Infected decubitus ulcer Diagnosis: Secondary (3) Acute kidney insufficiency Diagnosis: Secondary (4) Hyponatremia Diagnosis: Secondary (5) Hyperkalemia Diagnosis: Secondary (6) Cocaine abuse International Travel<30 Days: No Contact w/Intl Traveler<30days: No Known Affected Area: No History of Present Illness Patient states that he reported to ED because he felt his "sugar was high." When asked to elaborate, he continues to doze off. He states he is tired because he hasn't gotten much sleep. He denies chest pain, heart palpitations, shortness of breath, nausea/vomiting, diarrhea and constipation. He admits to increased frequency in urination today. He denies burning/pain with urination. He denies blood in urine. When asked about the ulcer on his right buttocks, he states that he has had it since his admission for an OH a few months ago. He denies alcohol intake. He denies drug use. Patient admits to taking medicine he was prescribed; "medicine for my heart." He is unable to recall the name of the medicine. He is unable to recall the name of the prescribing physician. Of note, patient suffered PEA arrest on 09/16/16. He was intubated x3 days. During that admission, patient was found to have 7x6mm nodule in right upper lung lobe; he was instructed to have follow up CT in 3 months. Patient was also admitted to hospital on 10/08/16 with a decubitus ulcer on his right buttocks. He was found to be hyperglycemic. He was treated with Vancomycin, Zosyn and insulin. Arrangements were made for him to be admitted to the hospital. However, he subsequently signed out AMA. His white blood count at that time was 11.4. Wound culture grew MRSA and enterococcus faecalis. Patient returned to ED on 10/10/16 with suicidal ideations. He signed out AMA. (Dipti Harvey MD R1) Review of Systems ROS Limitations: Uncooperative (Patient continues to doze off) Constitutional: DENIES: Fever, Chills Endocrine: COMPLAINS OF: Polyuria Ears, nose, mouth, throat: DENIES: Nasal discharge Respiratory: DENIES: Cough, Sputum production, Shortness of breath Cardiovascular: DENIES: Chest pain, Palpitations Gastrointestinal: DENIES: Abdominal pain, Constipation, Diarrhea, Nausea, Vomiting Genitourinary: COMPLAINS OF: Urinary frequency, Urgency, DENIES: Hematuria ( Dipti Harvey MD R1) Past Family Social History Past Medical History Per patient: OH x few months ago As per H&P on 10/08/16 and chart review: PEA arrest - 09/16/16 Cardiomyopathy Acute systolic CHF - EF 35-40%, mod-severe MR, Mild TR HTN Diabetes Hepatitis C Cocaine use Past Surgical History Hernia repair Reported Medications Per hospital record: Furosemide 20 Mg Tab 20 Mg PO DAILY Ergocalciferol 50,000 Unit Cap 50,000 Units PO Q7D Coreg (Carvedilol) 6.25 Mg Tab 6.25 Mg PO Q12HR Aspirin Low Strength (Aspirin) 81 Mg Chew 81 Mg PO DAILY Norvasc (Amlodipine Besylate) 5 Mg Tab 5 Mg PO DAILY As per patient, he is taking some prescribed medications but cannot recall name. (Dipti Harvey MD R1) Allergies: Coded Allergies: *MDRO Multi-Drug Resistant Organism (Verified Adverse Reaction, Unknown, ) MRSA PCR Screen 10/16/16 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 Active Ordered Medications Current Medications Medications (Trade) Dose Ordered Sig/Joshua Route Start Time Stop Time Status Last Admin (NS 1000 ml Inj) 1,000 ml @ 125 mls/hr Q8H IV 10/15/16 17:15 10/15/16 17:24 (NS Flush) 2 ml UNSCH PRN IV FLUSH 10/15/16 17:45 UNV (NS Flush) 2 ml BID IV FLUSH 10/15/16 21:00 UNV (Heparin Inj) 5,000 units Q12H SQ 10/15/16 17:45 UNV (Narcan Inj) 0.4 mg UNSCH PRN IV 10/15/16 17:45 UNV (Rula-Colace) 1 tab BID PO 10/15/16 21:00 UNV (Milk Of Magnesia Liq) 30 ml Q12H PRN PO 10/15/16 17:45 UNV (Senokot) 17.2 mg Q12H PRN PO 10/15/16 17:45 UNV (Dulcolax Supp) 10 mg DAILY PRN RECTAL 10/15/16 17:45 UNV Lactulose 30 ml 30 ml DAILY PRN PO 10/15/16 17:45 UNV Sodium Chloride 1,000 ml @ 250 mls/hr Q4H IV 10/15/16 17:39 Dextrose/Sodium Chloride 1,000 ml @ 200 mls/hr Q5H IV 10/15/16 17:39 Insulin Human Regular 100 units/ Sodium Chloride 100 ml @ 0 mls/hr TITRATE IV 10/15/16 17:45 Potassium Chloride 100 ml @ 100 mls/hr Q1H PRN IV 10/15/16 17:45 Potassium Chloride 100 ml @ 50 mls/hr Q2H PRN IV 10/15/16 17:45 Potassium Chloride 100 ml @ 100 mls/hr Q1H PRN IV 10/15/16 17:45 Potassium Chloride 100 ml @ 100 mls/hr Q1H PRN IV 10/15/16 17:45 Potassium Chloride 100 ml @ 50 mls/hr Q2H PRN IV 10/15/16 17:45 Potassium Chloride 100 ml @ 50 mls/hr Q2H PRN IV 10/15/16 17:45 Potassium Chloride 100 ml @ 50 mls/hr Q2H PRN IV 10/15/16 17:45 (KCl 20 Meq Premix Inj) 100 ml @ 50 mls/hr Q2H PRN IV 10/15/16 17:45 (Sodium Bicarbonate 8.4% Inj) 100 meq UNSCH PRN IV 10/15/16 17:45 Sodium Bicarbonate 50 meq 50 meq UNSCH PRN IV 10/15/16 17:45 (Sodium Phosphate Inj/NS Inj) 105 ml @ 25 mls/hr UNSCH PRN IV 10/15/16 17:45 Miscellaneous Information 1 Q361D XX 10/15/16 17:45 UNV (Chlorhexidine 2% Cloth) 3 pack Taper DAILY@04 TOP 10/16/16 04:00 10/12/17 03:59 UNV (Chlorhexidine 2% Cloth) 3 pack UNSCH PRN TOP 10/15/16 17:45 UNV (Romazicon Inj) 0.2 mg Q1M PRN IV PUSH 10/15/16 18:00 UNV (Ativan) 1 mg Q4H PRN PO 10/15/16 18:00 UNV (Ativan Inj) 1 mg Q4H PRN IV PUSH 10/15/16 18:00 UNV (Ativan) 2 mg Q2H PRN PO 10/15/16 18:00 UNV (Ativan Inj) 2 mg Q2H PRN IV PUSH 10/15/16 18:00 UNV (Ativan Inj) 2 mg Q1H PRN IV PUSH 10/15/16 18:00 UNV Lorazepam 2 mg 2 mg Q15M PRN IV PUSH 10/15/16 18:00 UNV Vancomycin HCl 1000 mg/Sodium Chloride 250 ml @ 250 mls/hr Q12H IV 10/15/16 18:30 UNV (Vancomycin Consult Pharmacy) 0 ml @ 0 mls/hr UNSCH OTHER 10/15/16 18:30 UNV Family History Unable to obtain. Social History Unable to obtain. As per H&P on 10/08/16: Patient is homeless. Uses cocaine. Denies any alcohol or tobacco use. (Dipti Harvey MD R1) Physical Exam Vital Signs Vital Signs Date Time Temp Pulse Resp B/P Pulse Ox O2 Delivery O2 Flow Rate FiO2 10/15/16 17:00 97.8 89 20 119/77 99 Room Air 10/15/16 15:37 81 18 98 Room Air 10/15/16 14:52 98.9 85 16 124/75 96 Room Air Physical Exam GENERAL: This is a well-nourished, well-developed patient, in no apparent distress. Laying in hospital bed sleeping. SKIN: Cool and dry. Decubitus ulcer on right buttocks, covered with gauze dressing; triangular shaped lesion noted on heal of left foot. HEAD: Atraumatic. Normocephalic. No temporal or scalp tenderness. EYES: Pupils equal round. Scleral icterus. ENT: Nose without bleeding, purulent drainage or septal hematoma. Airway patent. NECK: Trachea midline. No JVD or lymphadenopathy. Supple, nontender. CARDIOVASCULAR: Regular rate and rhythm without murmurs, gallops, or rubs. RESPIRATORY: Clear to auscultation. Breath sounds equal bilaterally. GASTROINTESTINAL: Abdomen soft, non-tender, nondistended. No guarding. MUSCULOSKELETAL: Extremities without clubbing, cyanosis, or edema. No joint tenderness, effusion, or edema noted. No calf tenderness. NEUROLOGICAL: Lethargic. Unable to answer questions without trailing off/dozing off. Does respond to verbal commands but limited in following commands. Motor and sensory grossly within normal limits. Speech slurred. Laboratory Laboratory Tests Test 10/15/16 10/15/16 15:20 15:23 Lactic Acid Level 1.7 White Blood Count 6.1 Red Blood Count 5.08 Hemoglobin 13.3 Hematocrit 42.5 Mean Corpuscular Volume 83.6 Mean Corpuscular Hemoglobin 26.1 Mean Corpuscular Hemoglobin 31.2 Concent Red Cell Distribution Width 14.3 Platelet Count 215 Mean Platelet Volume 9.4 Neutrophils (%) (Auto) 66.7 Lymphocytes (%) (Auto) 14.6 Monocytes (%) (Auto) 13.3 Eosinophils (%) (Auto) 5.0 Basophils (%) (Auto) 0.4 Neutrophils # (Auto) 4.1 Lymphocytes # (Auto) 0.9 Monocytes # (Auto) 0.8 Eosinophils # (Auto) 0.3 Basophils # (Auto) 0.0 CBC Comment DIFF FINAL Differential Comment Sodium Level 119 Potassium Level 5.5 Chloride Level 83 Carbon Dioxide Level 28.3 Anion Gap 8 Blood Urea Nitrogen 30 Creatinine 1.62 Estimat Glomerular Filtration 55 Rate Random Glucose 851 Calcium Level 8.9 Total Bilirubin 0.7 Aspartate Amino Transf 68 (AST/SGOT) Alanine Aminotransferase 95 (ALT/SGPT) Alkaline Phosphatase 187 Total Protein 7.6 Albumin 2.8 B-Hydroxybutyrate 0.60 Date/Time Procedure Status Source Growth 10/15/16 15:20 Aerobic Blood Culture Received Blood Peripheral Pending 10/15/16 15:20 Anaerobic Blood Culture Received Blood Peripheral Pending 10/15/16 15:15 Gram Stain Received Wound Back Pending 10/15/16 15:15 Wound Culture Received Wound Back Pending (Dipti Harvey MD R1) Result Diagram: 10/15/16 1523 10/15/16 1523 Assessment and Plan Assessment and Plan Patient is a 51 year old male who presents to ED with blood glucose of 851, B-Hydroxybutyrate of 0.60 and positive urine cocaine screen. He has three recent hospital admissions/visits for PEA arrest, decubitus ulcer plus hyperglycemia and suicidal ideations. Patient left AMA at last two visits. He is noncompliant with medication and follow-up. Code Status Full code Discussed Condition With Dr. Erica Ellison, Attending Dr. Joanne Soriano, PGY-2 (Dipti Harvey MD R1) Attending Attestation THIS CASE WAS DISCUSSED WITH THE RESIDENT PHYSICIANS. I HAVE REVIEWED THE RECORD AND AGREE WITH THE ABOVE NOTE AND PLAN OF CARE WAS DISCUSSED. I HAVE AUTHORIZED THE ORDER FOR ADMISSION TO AN IN-PATIENT STATUS. Meets 2 to midnight certification (Erica Ellison MD) Problem List: (1) Hyperglycemia Status: Acute Plan: Etiology: * Medication non-compliance * Aggravated by infection of decubitus ulcer on right buttocks At admission: * Random glucose 851; repeat random glucose 408 * B-Hydroxybutyrate 0.60H * Urine Glucose 1000H * ABG normal Management: * Received 7 units of NovoLIN IV Push in ED. * Received Sodium Chloride 1,000 ml @ 999 mls/hr bolus IV x3 in ED. * Started on insulin drip. * Ordered NovoLOG Supplemental Scale. * Started Sodium Chloride 1,000 ml @ 125 mls/hr q8h IV - discontinued when blood glucose <250. * Now on Dextrose/Sodium Chloride 1,000 ml @ 200 mls/hr q5h IV. * Monitor blood glucose q1h. (2) Infected decubitus ulcer Status: Acute Plan: Etiology: * Unknown During last admission, pipeline welder recommended plastic sx consult. However, there wasn't any plastic surgery physician or wound care physician available. GS was consulted but declined the consult due to location of wound. Wound culture grew MRSA and enterocoocus faecalis. Patient was treated with Vancomycin and Zosyn. Left AMA. Has not been on antibiotics or received wound care management. * Started on Vancomycin HCL 1,000mg/Sodium Chloride 250 ml @ 250 mls/hr q24h IV. * Piperacilin Sod/Tazobactam Sod 50 ml @ 100 mls/hr q6h IV. * Wound culture - pending. * Blood culture - pending. * Consulted wound management. (3) Acute kidney insufficiency Status: Acute Plan: Etiology: * Possible dehydration. BUN/Cr 25/1.41. Monitor. At last admissions, BUN/Cr were initially elevated but quickly normalized following fluid administration. * Received Sodium Chloride 1,000 ml @ 999 mls/hr bolus IV x3 in ED. * Started Sodium Chloride 1,000 ml @ 125 mls/hr q8h IV - discontinued when blood glucose <250. * Now on Dextrose/Sodium Chloride 1,000 ml @ 200 mls/hr q5h IV. * Monitor fluid administration closely - patient has CHF; consider Lasix if fluid overload is suspected. (4) Hyponatremia Status: Acute Plan: Etiology: * Hyperglycemia At admission, Na 119, corrected 131; repeat Na 131. Monitor closely. (5) Hyperkalemia Status: Acute Plan: Etiology: * Hyperglycemia At admission, K 5.5; repeat K 5.2. Monitor closely. * Potassium Chloride 100 ml @ 100 mls/hr q1h PRN IV on board. (6) Cocaine abuse Status: Acute Plan: Hx of cocaine use. At admission, Urine Cocaine Screen positive. Patient altered. Monitor closely. [facility] protocol as precaution. (7) CHF (congestive heart failure) Status: Acute Plan: PEA arrest on 09/16/16. Hx of CHF and cardiomyopathy. * Troponin x2 negative. * CKMB x 2 wnl. * Serial EKG pending. * BNP 146H. (8) Fluid, Electrolyte, Nutrition, and Prophylaxis Status: Acute Plan: Fluid: * Received Sodium Chloride 1,000 ml @ 999 mls/hr bolus IV x3 in ED. * Started Sodium Chloride 1,000 ml @ 125 mls/hr q8h IV - discontinued when blood glucose <250. * Now on Dextrose/Sodium Chloride 1,000 ml @ 200 mls/hr q5h IV. Electrolyte: * Monitor and replete if necessary. * See hyponatremia. * See hyperkalemia. Nutrition: * NPO DVT Prophylaxis: * Heparin 5,000 units q12h SQ * SCDs GI Prophylaxis: * Not indicated at this time. (Dipti Harvey MD R1) Problem Qualifiers (1) Infected decubitus ulcer: Qualified Code: L89.95 - Infected decubitus ulcer, unstageable Dipti Harvey MD R1 Oct 15, 2016 17:32 Erica Ellison MD Oct 16, 2016 13:27
[2016-10-15] MEDS ORDERED: POTASSIUM CHLOR 20 MEQ PREMIX 100 ML IV PRN ×6 (17:45)
[2016-10-15] MEDS ORDERED: SODIUM PHOSPHATE INJ 15 MMOL in SODIUM CHLORIDE 0.9% INJ 100 ML IV PRN (17:45)
[2016-10-15] MEDS ORDERED: SENNOSIDES 8.6 MG TAB PO PRN (17:45)
[2016-10-15] MEDS ORDERED: BISACODYL 10 MG SUPP RECTAL PRN (17:45)
[2016-10-15] MEDS ORDERED: INSULIN REGULAR (IV INFUSION) 100 UNITS in SODIUM CHLORIDE 0.9% INJ 99 ML IV SCH (17:45)
[2016-10-15] MEDS ORDERED: POTASSIUM CHLOR 40 MEQ PREMIX 100 ML IV PRN ×2 (17:45)
[2016-10-15] MEDS ORDERED: LACTULOSE SYRUP 20 GM/30 ML CUP PO PRN (17:45)
[2016-10-15] MEDS ORDERED: MAGNESIUM HYDROXIDE SUSP 30 ML CUP PO PRN (17:45)
[2016-10-15] MEDS ORDERED: MISCELLANEOUS NURSING INFORMATION XX SCH (17:45)
[2016-10-15] MEDS ORDERED: SODIUM BICARBONATE 8.4% SOLN 50 MEQ/50 ML VIAL IV PRN ×2 (17:45)
[2016-10-15] MEDS ORDERED: SODIUM CHLORIDE 0.9% FLUSH 10 ML FLUSH IV FLUSH PRN (17:45)
[2016-10-15] MEDS ORDERED: CHLORHEXIDINE GLUCONATE 2 % 1 PACK (2 CLOTHS) TOP PRN (17:45)
[2016-10-15] MEDS ORDERED: NALOXONE HCL 0.4 MG/ML AMP IV PRN (17:45)
[2016-10-15] MEDS ORDERED: LORazepam 2 MG/ML VIAL IV PUSH PRN ×4 (18:00)
[2016-10-15] MEDS ORDERED: LORazepam 2 MG TAB PO PRN (18:00)
[2016-10-15] MEDS ORDERED: LORazepam 1 MG TAB PO PRN (18:00)
[2016-10-15] MEDS ORDERED: FLUMAZENIL 0.5 MG/5 ML VIAL IV PUSH PRN (18:00)
[2016-10-15 18:11] LABS: BLOOD GAS BASE EXCESS 1.3 mmol/L (-2-2); BLOOD GAS CARBOXYHEMOGLOBIN 1.2 % (0-4); BLOOD GAS HCO3 25 mmol/L (22-26); BLOOD GAS METHEMOGLOBIN 0.6 % (0-2); BLOOD GAS O2 HGB SATURATION 96 % (90-100); BLOOD GAS OXYGEN CONTENT 15.8 Vol % (12.0-20.0); BLOOD GAS PCO2 41 mmHg (38-42); BLOOD GAS PO2 92 mmHG (61-120); BLOOD GAS TOTAL HGB 11.7 G/DL (12.0-16.0); CRITICAL VALUE NO; FIO2 21 %; TEMP CORR TO 98.6
[2016-10-15 18:12] LABS: DRAW SITE RT RADIAL; NUMBER OF ARTERIAL PUNCTURES 1; STAT NO; ULNAR PULSE PRESENT
[2016-10-15] MEDS ORDERED: Vancomycin Consult Pharmacy 1 EA OTHER SCH (18:30)
[2016-10-15 18:36] LABS: BLOOD, URINE NEG (NEG); COMMENT (UR) CULT NOT INDICATED; CULTURE IF INDICATED CULT NOT INDICATED; GLUCOSE,URINE 1000 mg/dL (NEG); KETONE, URINE NEG (NEG); MUCUS URINE FEW /lpf (OCC); NITRITE,URINE NEG (NEG); PH, URINE 5.5 (5.0-8.5); SQUAMOUS EPITHELIAL CELL URINE <1 /hpf (0-5); URINE COLOR LIGHT-YELLOW (YELLW/STRAW)
[2016-10-15 19:00] LABS: CREATINE KINASE 92 U/L (39-308)
[2016-10-15 19:18] LABS: CREATINE KINASE 84 U/L (39-308)
[2016-10-15 19:20] LABS: ANION GAP 11 MEQ/L (5-15); BICARBONATE 21.8 MEQ/L (21.0-32.0); BLOOD UREA NITROGEN 25 MG/DL (7-18); CHLORIDE 98 MEQ/L (98-107); GLOMERULAR FILTRATION RATE 64 ML/MIN (>89); MAGNESIUM 2.1 MG/DL (1.5-2.5); POTASSIUM 5.2 MEQ/L (3.5-5.1); SODIUM (NA) 131 MEQ/L (136-145)
[2016-10-15 19:21] LABS: CREATINE KINASE 85 U/L (39-308)
[2016-10-15] MEDS: SODIUM CHLOR 0.9% 1000 ML INJ 1,000 ML IV SCH ×2 (19:39)
[2016-10-15] MEDS ORDERED: VANCOMYCIN INJ 1,000 MG in SODIUM CHLOR 0.9% 250 ML INJ 250 ML IV SCH (20:00)
[2016-10-15] MEDS: PIPERACIL-TAZO 3.375 GM PREMIX 50 ML IV SCH (20:46)
[2016-10-15] MEDS: DEXT 5%-NACL 0.9% 1000 ML INJ 1,000 ML IV SCH (20:48)
[2016-10-15] MEDS: HEPARIN SODIUM - SQ 10,000 UNITS/ML VIAL SQ SCH (22:36)
[2016-10-15 22:49] LABS: BICARBONATE 28.1 MEQ/L (21.0-32.0); MAGNESIUM 2.1 MG/DL (1.5-2.5); POTASSIUM 3.9 MEQ/L (3.5-5.1)
[2016-10-15] MEDS: INSULIN ASPART SUPPLEMENTAL SCALE SQ SCH (23:10)
[2016-10-16] VITALS (22 sets, daily range): BP systolic 129–176; BP diastolic 72–100; PULSE 63–86; RESP 16–25; TEMP 97.7–98.2; O2SAT 96–100
[2016-10-16] MEDS: SODIUM CHLOR 0.9% 1000 ML INJ 1,000 ML IV SCH
[2016-10-16] MEDS: DEXT 5%-NACL 0.9% 1000 ML INJ 1,000 ML IV SCH (02:12)
[2016-10-16] MEDS: CHLORHEXIDINE GLUCONATE 2 % 1 PACK (2 CLOTHS) TOP SCH ×2 (02:14→20:24)
[2016-10-16] MEDS: SODIUM CHLORIDE 0.9% FLUSH 10 ML FLUSH IV FLUSH SCH ×3 (02:15→20:20)
[2016-10-16] MEDS: PIPERACIL-TAZO 3.375 GM PREMIX 50 ML IV SCH ×4 (04:35→20:19)
[2016-10-16 05:13] LABS: BETA-HYDROXYBUTYRATE 0.3 MMOL/L (0.00-0.39); BICARBONATE 27.8 MEQ/L (21.0-32.0); POTASSIUM 3.9 MEQ/L (3.5-5.1)
[2016-10-16] MEDS ORDERED: DC previous DKA orders (HMC 1917) ONE (07:30)
[2016-10-16] MEDS ORDERED: GLUCAGON 1 MG/ML VIAL OTHER PRN (07:30)
[2016-10-16] MEDS ORDERED: DC Insulin drip 2 hrs post basal insulin dose ONE (07:30)
[2016-10-16] MEDS ORDERED: DEXTROSE 50% IN WATER 50 ML VIAL(D50) IV PRN (07:30)
[2016-10-16] MEDS: HEPARIN SODIUM - SQ 10,000 UNITS/ML VIAL SQ SCH ×2 (09:26→20:19)
[2016-10-16] MEDS: DOCUSATE SODIUM 50 MG/SENNA 8.6 MG TAB PO SCH ×3 (09:26→20:20)
[2016-10-16] MEDS: INSULIN DETEMIR 100 UNITS/ML VIAL SQ SCH ×2 (09:31→20:20)
[2016-10-16] MEDS: INSULIN ASPART SUPPLEMENTAL SCALE SQ SCH ×4 (11:00→20:23)
[2016-10-16] MEDS: CARVEDILOL 6.25 MG TAB PO SCH ×2 (11:07→20:19)
[2016-10-16] MEDS: amLODIPine BESYLATE 5 MG TAB PO SCH (11:07)
[2016-10-16] MEDS: ASPIRIN 81 MG CHEW TAB PO SCH (11:07)
--- NOTE | 2016-10-16 14:58 | EKG ---
Date Performed: 10/15/2016 Time Performed: 17:06:30 PTAGE: 51 years EKG: Sinus rhythm VOLTAGE CRITERIA FOR LVH Anterior ST changes, potentially consistent with LVH vs an acute injury pat tern. Clinical correlation is recommended. Likely no significant change ABNORMAL ECG PREVIOUS TRACING : 10/08/2016 05.40 DOCTOR: Shoshana Prescott Interpretating Date/Time 10/16/2016 14:54:47
--- NOTE | 2016-10-16 14:59 | EKG ---
Date Performed: 10/15/2016 Time Performed: 22:30:01 PTAGE: 51 years EKG: Sinus rhythm VOLTAGE CRITERIA FOR LVH NONSPECIFIC ST & T-WAVE ABNORMALITY Compared to prior tracing no significan t change ABNORMAL ECG PREVIOUS TRACING : 10/15/16 @ 1706 DOCTOR: Shoshana Prescott Interpretating Date/Time 10/16/2016 14:55:22
[2016-10-16] MEDS: SODIUM HYPOCHLORITE 0.125% 500 ML BTL TOPICAL SCH ×2 (15:00→20:24)
[2016-10-16] MEDS ORDERED: ENALAPRILAT 1.25 MG/ML VIAL IV PRN (15:00)
--- NOTE | 2016-10-16 15:02 | PD.WCN.NOT ---
Wound Consult Description: R buttock and L heel wound Communicated with: MIRIAN Pena [facility] and call placed to Doctor Polina SUN R1 Recommendation: Please consult general surgery for debridement. Please cleanse wound to R buttock with normal saline apply dakin's 0.125% moistened gauze loosely packed into wound bed cover with dry 4x4 gauze pads and ABD pad, Apply skin prep to periwound before securing dressing with tape. Change BID until seen by surgeon. Please cleanse wound to L heel with normal saline or wound cleanser and apply Xeroform gauze dressing just over wound bed cover with dry 4x4 gauze pads and secure with rolled gauze and tape. Change dressing every other day or PRN if saturated or dislodged. Additional Information: Patient seen on 5th floor [facility] for evaluation of wounds to R buttock and L heel. Patient turned to L side with independently. Removed bordered gauze dressing in place to reveal large unstageable wound with mixed etiology of moisture, pressure and friction. Patient states," I got this from laying on the floor and not moving." Wound margins are poorly defined, jagged and uneven. Wound is noted with ~80% coverage of thick yellow/ brown loosely adherent necrotic tissue , and 20% pale red non granulation tissue.Moderate active purulent muniz colored drainage is noted with foul odor. Periwound presents with induration and heat from 12 to 6 o'clock. Wound noted with some depth at 10 o'clock that is ~2cm. Wound measurements are as follows 9.2 cm x 9.2 cm x slough. Cleansed wound with wound cleanser and applied Maxorb II (calcium alginate) dressing over wound bed. Applied skin prep before covering wound with bordered gauze. Stage 2 pressure injury to L heel is noted opened to air and presents with 100% pink tissue. wound bed appears dry. Scant sanguinous drainage noted when cleansed with gauze pad and normal saline. Wound measures 3.1cm x 4 cm x ~0.1 cm. Left wound open to air MIRIAN Paredes to apply dressing when supplies are available Brit[facility] Oct 16, 2016 15:02
--- NOTE | 2016-10-16 15:40 | HHI.FPPN ---
Problem Problem List: (1) Decubitus ulcer of right buttock, unstageable (2) Hyperglycemia (3) Hyponatremia (4) Hyperkalemia (5) Cocaine abuse (6) Cardiomyopathy (7) Non-compliance Subjective Subjective Patient was admitted for the right decubitus ulcer and for hyperglycemia. Patient reports several days of fatigue and just overall not feeling well. He has not been taking any of his medications as prescribed and he is currently homeless and has no access to care or resources. He denies current drug use but his UDS is positive for cocaine. He was recently admitted in August with cardiac arrest suspected to be from cocaine use. He has failed to take discharge medications and has been back to the hospital twice and left AMA each time. On previous admission the decubitus wound culture grew MRSA and enterococcus faecalis. He has progressively worsened over the past several days and states he understands that he needs to be in the hospital to get the treatment that he needs. Past Medical History PEA arrest - 09/16/16 (thought to be secondary to cocaine) Cardiomyopathy with CHF - EF 35-40%, mod-severe MR, Mild TR HTN Diabetes Hepatitis C (untreated) Cocaine use Past Surgical History Hernia repair Reported Medications Per hospital record: Furosemide 20 Mg Tab 20 Mg PO DAILY Ergocalciferol 50,000 Unit Cap 50,000 Units PO Q7D Coreg (Carvedilol) 6.25 Mg Tab 6.25 Mg PO Q12HR Aspirin Low Strength (Aspirin) 81 Mg Chew 81 Mg PO DAILY Norvasc (Amlodipine Besylate) 5 Mg Tab 5 Mg PO DAILY SOCIAL History -- is homeless, lives out doors, he does state he has a and son that are in the area and have homes and might let him stay with them. Denies ETOH or illicit but per chart h/o cocaine and ETOH ALL: none ROS: GENERA: Denies weight change, fevers, chills CARDS: Denies CP, SOB, RIOJAS, palpitations GI: Denies nausea, vomiting, diarrhea, constipation : denies urinary freq, urgency, dysuria NEURO: denies change in gait, numbness, tingling, mental status change, memory loss PSYCH: denies depressed or anxious mood SKIN: Endorses wound on the right buttock and left heel MS: Denies joint pain or stiffness Hospital Objective Objective Laboratory Tests - Abnormals Test 7/10/15/16 10/15/16 10/15/16 15:23 16:10 18:03 18:10 Mean Corpuscular Hemoglobin 26.1 PG Mean Corpuscular Hemoglobin 31.2 % Concent Monocytes (%) (Auto) 13.3 % Eosinophils (%) (Auto) 5.0 % Lymphocytes # (Auto) 0.9 TH/MM3 Sodium Level 119 MEQ/L 131 MEQ/L Potassium Level 5.5 MEQ/L 5.2 MEQ/L Chloride Level 83 MEQ/L Blood Urea Nitrogen 30 MG/DL 25 MG/DL Creatinine 1.62 MG/DL 1.41 MG/DL Estimat Glomerular Filtration 55 ML/MIN 64 ML/MIN Rate Random Glucose 851 MG/DL 408 MG/DL Aspartate Amino Transf 68 U/L (AST/SGOT) Alanine Aminotransferase 95 U/L (ALT/SGPT) Alkaline Phosphatase 187 U/L Troponin I LESS THAN 0.02 LESS THAN 0.02 NG/ML NG/ML B-Type Natriuretic Peptide 146 PG/ML Albumin 2.8 GM/DL B-Hydroxybutyrate 0.60 MMOL/L Urine Glucose (UA) 1000 mg/dL Urine Mucus FEW /lpf Urine Cocaine Screen POS Blood Gas Hemoglobin 11.7 G/DL Calcium Level 8.1 MG/DL Test 10/15/16 10/16/16 21:53 03:39 Blood Urea Nitrogen 20 MG/DL Estimat Glomerular Filtration 86 ML/MIN Rate Random Glucose 188 MG/DL 306 MG/DL Calcium Level 8.0 MG/DL 8.0 MG/DL Phosphorus Level 2.2 MG/DL 1.7 MG/DL Vital Signs 10/15/16 10/15/16 10/15/16 10/16/16 14:52 15:37 17:00 00:00 Temp 98.9 97.8 97.9 Pulse 85 81 89 69 Resp 16 18 20 18 B/P 124/75 119/77 162/81 Pulse Ox 96 98 99 100 O2 Delivery Room Air Room Air Room Air 10/16/16 10/16/16 10/16/16 10/16/16 00:00 02:00 04:00 04:00 Temp 97.7 Pulse 69 64 63 63 Resp 20 B/P 161/81 Pulse Ox 98 10/16/16 10/16/16 10/16/16 10/16/16 06:00 07:00 08:00 08:00 Temp 97.8 Pulse 67 75 73 86 Resp 19 20 B/P 163/84 170/100 Pulse Ox 99 96 10/16/16 10/16/16 10/16/16 10/16/16 08:30 09:00 09:30 10:00 Pulse 66 65 71 64 Resp 21 22 18 B/P 169/79 163/84 165/84 Pulse Ox 99 97 99 10/16/16 10/16/16 10/16/16 10/16/16 10:13 10:31 11:00 11:30 Pulse 71 67 71 71 Resp 22 21 16 19 B/P 176/79 159/74 164/83 163/82 Pulse Ox 99 97 98 97 10/16/16 10/16/16 10/16/16 12:00 12:00 14:00 Temp 98.0 Pulse 70 70 79 Resp 20 B/P 150/78 Pulse Ox 97 INTAKE & OUTPUT 10/16/16 07:00 Intake Total 2518 ml Output Total 850 ml Balance 1668 ml Physical exam O. CONSTITUTIONAL/GEN: thin appearing, lying on side uncomfortable to move but no resp distress EYES: conjunctiva normal, PERRLA, EOMI. ENT: Mouth and pharynx normal. NECK: thyroid midline, [id number] symmetrical, no JVD or bruits LUNGS: clear A-P, respiratory effort is normal. CARDIOVASCULAR: RR with 3/6 TRICIA or gallop. No significant edema in the LE. GI/ABD: soft without masses, without organomegaly. : no CVA tenderness NEURO: No focal deficits. He is able to ambulate but gait is limited due to the lesion on the heel and the buttocks SKIN: color normal, Right buttocks with very large and deep ulcerated lesion, very difficult to visualize due to the patient being in pain as the area is palpated, strong odor on the wound. Cannot be clear if there is not an underlying fistula perhaps?, left heel with triangular shaped wound, no pus or drainage but some tenderness around the heel. HEME/LYMPH: no bruising, petechia or significant adenopathy MUSC: back is normal in appearance. Extremities are normal in appearance. PSYCH/MENTAL STATUS: Alert and oriented x 3. Assessment Assessment: (1) Decubitus ulcer of right buttock, unstageable Plan: This is a severe wound and needs to be debrided if we ever expect to have heeling. At this time there is no plastic surgery coverage in this hospital. Wound care is consulted and planning to dress the wound BID with Dakin solution. I am concerned that due to the extensive nature of the wound and the location that he may even have an underlying fistula or perhaps more systemic infection. Blood culture is pending. He is being treated to cover the bacteria seen in the wound on the prior admission (2) Hyperglycemia Plan: This is improving and he is on standard protocol for this and is being transitioned to Levimir BID (3) Hyperkalemia Plan: Resolved (4) Hyponatremia Plan: Resolved (5) Cocaine abuse Plan: Likely cause of the prior cardiac arrest. This is ongoing issue for this patient. (6) Cardiomyopathy Plan: This further complicates this patients care as his underlying cardiac function is 35-40% with severe MR. There does not appear to be an acute cardiac issues for this admission (7) Non-compliance Plan: This patient is homeless and without resources. Will need to have definitive plan for treatment and fu once he is discharged Assessment Mr. Kahn appears to understand the seriousness of his illness at this time but he has many issues that put him at very high risk for further complications and deterioration -- Cardiomyopathy, severe MR, recent cardiac arrest, cocaine use, uncontrolled DM, homelessness and lack of financial resources. Continue his Abx at this time and wound care per wound care team recommendations. Will reach out to see if surgical debridement is an option for this patient. Will consult nutrition for recommendations for diet/protein intake as he will need high protein and enough calories to be able to heal this wound. Check prealbumin. Consider imaging to r/o osteo of the pelvis or heel and also consider how to evaluate this wound to ensure there is not a fistula. Continue to correct his blood sugar. He is not hyperosmolar as his Effective plasma OSM calculates about to 284 and AG is 11.2 -- hope to transition him soon to Levimir BID and off insulin drip. Continue IVF and following/ correcting electrolyte abnormalities PLAN PLAN as above Erica Ellison MD Oct 16, 2016 15:40
[2016-10-16] MEDS: VANCOMYCIN INJ 1,000 MG in SODIUM CHLOR 0.9% 250 ML INJ 250 ML IV SCH (16:37)
--- NOTE | 2016-10-16 18:13 | RADRPT ---
EXAM DATE/TIME: 10/16/2016 17:45 [facility] COMPARISON: No previous studies available for comparison. INDICATIONS : Left ankle pain; ulcer. MEDICAL HISTORY : None. SURGICAL HISTORY : None. ENCOUNTER: Initial ACUITY: 3 months PAIN SCORE: 10/10 LOCATION: Left ankle. FINDINGS: Two view exam was performed of the left ankle. The bony structures are in normal alignment. No evid ence of fracture, dislocation, or soft tissue swelling. No radiopaque foreign bodies are seen. Bony mineralization is normal. CONCLUSION: No acute disease. Gerson Clayton MD on October 16, 2016 at 18:11 Board Certified Radiologist. This report was verified electronically.
--- NOTE | 2016-10-16 18:14 | RADRPT ---
EXAM DATE/TIME: 10/16/2016 17:51 [place] COMPARISON: No previous studies available for comparison. INDICATIONS : Buttock pain; decubitis ulcer. MEDICAL HISTORY : None. SURGICAL HISTORY : None. ENCOUNTER: Initial ACUITY: 3 months PAIN SCORE: 10/10 LOCATION: Bilateral buttock FINDINGS: On the lateral view there is subcutaneous emphysema within the gluteal soft tissues. This corresponds to the decubitus ulcer. Obvious bony destruction is not definitively visualized. CONCLUSION: Subcutaneous emphysema in this patient with decubitus ulcer. Osseous structures are intact. No defini te plain radiographic evidence of osteomyelitis. Gerson Clayton MD on October 16, 2016 at 18:11 Board Certified Radiologist. This report was verified electronically.
[2016-10-16 22:18] LABS: HEMOGLOBIN A1a 1.4 %; HEMOGLOBIN A1b 1.2 %; HEMOGLOBIN Ao 70.9 %; HEMOGLOBIN F 2.3 %; HEMOGLOBIN LA1C 3.7 %; HEMOGLOBIN P3 6.8 %
[2016-10-16] MEDS ORDERED: MORPHINE SULFATE 4 MG/ML INJ IM ONE (23:45)
[2016-10-17] VITALS (10 sets, daily range): BP systolic 132–206; BP diastolic 73–117; PULSE 62–97; RESP 12–19; TEMP 97.6–98.5; O2SAT 91–98
[2016-10-17] MEDS: PIPERACIL-TAZO 3.375 GM PREMIX 50 ML IV SCH ×4 (00:55→22:00)
[2016-10-17 05:33] LABS: BASOPHIL % 0.9 % (0.0-2.0); EOSINOPHIL # 0.4 TH/MM3 (0-0.4); EOSINOPHIL % 6.5 % (0.0-4.0); HEMATOCRIT 39.4 % (39.0-51.0); HEMO FLAGS DIFF FINAL; LYMPHOCYTE # 1.5 TH/MM3 (1.0-4.8); MEAN CELL VOLUME 78.7 FL (80.0-100.0); MEAN CORPUSCULAR HEMOGLOBIN 25.9 PG (27.0-34.0); MEAN CORPUSCULAR HGB CONC 32.9 % (32.0-36.0); MONO % 10.8 % (0.0-8.0); NEUT % 54.8 % (16.0-70.0); PLATELET COUNT 179 TH/MM3 (150-450); RED CELL DISTRIBUTION WIDTH 13.9 % (11.6-17.2); WHITE BLOOD COUNT 5.4 TH/MM3 (4.0-11.0)
[2016-10-17 05:58] LABS: ALKALINE PHOSPHATASE 133 U/L (45-117); ALT (GPT) 69 U/L (12-78); ANION GAP 7 MEQ/L (5-15); AST (GOT) 49 U/L (15-37); BICARBONATE 26.9 MEQ/L (21.0-32.0); BLOOD UREA NITROGEN 14 MG/DL (7-18); CHLORIDE 97 MEQ/L (98-107); GLOMERULAR FILTRATION RATE 105 ML/MIN (>89); POTASSIUM 3.9 MEQ/L (3.5-5.1); SODIUM (NA) 131 MEQ/L (136-145); TOTAL BILIRUBIN ADULT 0.5 MG/DL (0.2-1.0)
[2016-10-17] MEDS: INSULIN ASPART SUPPLEMENTAL SCALE SQ SCH ×4 (07:18→22:52)
[2016-10-17] MEDS ORDERED: HYDROmorphone HCL PF 2 MG/ML VIAL IV SCH (08:45)
[2016-10-17] MEDS: SODIUM HYPOCHLORITE 0.125% 500 ML BTL TOPICAL SCH ×2 (09:00→21:00)
[2016-10-17] MEDS: amLODIPine BESYLATE 5 MG TAB PO SCH (09:18)
[2016-10-17] MEDS: SODIUM CHLORIDE 0.9% FLUSH 10 ML FLUSH IV FLUSH SCH ×2 (09:18→21:59)
[2016-10-17] MEDS: ASPIRIN 81 MG CHEW TAB PO SCH (09:18)
[2016-10-17] MEDS: CARVEDILOL 6.25 MG TAB PO SCH ×2 (09:18→21:59)
[2016-10-17] MEDS: DOCUSATE SODIUM 50 MG/SENNA 8.6 MG TAB PO SCH ×2 (09:18→21:00)
[2016-10-17] MEDS: INSULIN DETEMIR 100 UNITS/ML VIAL SQ SCH (09:20)
[2016-10-17] MEDS ORDERED: ONDANSETRON HCL 4 MG/2 ML VIAL IV PUSH PRN (09:30)
[2016-10-17] MEDS ORDERED: ACETAMINOPHEN 325 MG TAB PO PRN (09:30)
--- NOTE | 2016-10-17 11:07 | HHI.FPPN ---
Subjective Remarks Patient was seen and evaluated this morning. He is laying in bed, rolled over to his left side. He states that he is feeling well. He denies chest, abdominal and general body pains, heart palpitations, shortness of breath, nausea/vomiting , diarrhea and constipation. (Dipti Harvey MD R1) Objective Vitals Vital Signs Date Time Temp Pulse Resp B/P Pulse Ox O2 Delivery O2 Flow Rate FiO2 10/17/16 08:00 70 10/17/16 06:00 70 10/17/16 04:00 98.5 62 15 146/84 91 10/17/16 04:00 62 10/17/16 02:00 64 10/17/16 00:00 65 10/17/16 00:00 97.8 65 17 138/73 97 10/16/16 22:00 79 10/16/16 20:00 98.0 68 19 129/89 99 10/16/16 20:00 68 10/16/16 18:00 72 10/16/16 18:00 64 17 158/75 100 10/16/16 16:00 71 10/16/16 16:00 98.2 71 25 155/81 99 10/16/16 15:00 68 20 150/72 96 10/16/16 14:00 79 18 155/77 98 10/16/16 14:00 79 10/16/16 13:00 71 20 130/78 97 10/16/16 12:00 70 10/16/16 12:00 98.0 70 20 150/78 97 10/16/16 11:30 71 19 163/82 97 10/16/16 11:00 71 16 164/83 98 10/16/16 10:31 67 21 159/74 97 I/O 10/16/16 10/16/16 10/16/16 10/17/16 10/17/16 10/17/16 07:00 15:00 23:00 07:00 15:00 23:00 Intake Total 2518 ml 590 ml 110 ml 60 ml Output Total 850 ml 750 ml 750 ml 475 ml Balance 1668 ml -160 ml -640 ml -415 ml Intake Oral 360 ml IV Total 2518 ml 230 ml 110 ml 60 ml Output Urine Total 850 ml 750 ml 750 ml 475 ml (Dipti Harvey MD R1) Result Diagram: 10/17/16 0432 10/17/16 0432 Other Results Blood culture: NO GROWTH in 1 day Wound culture: MRSA positive Imaging Last Impressions Sacrum and Coccyx X-Ray 10/16/16 0000 Signed Impressions: Service Date/Time: September 17:51 - CONCLUSION: Subcutaneous emphysema in this patient with decubitus ulcer. Osseous structures are intact. No definite plain radiographic evidence of osteomyelitis. Gerson Clayton MD Ankle X-Ray 10/16/16 0000 Signed Impressions: Service Date/Time: September 17:45 - CONCLUSION: No acute disease. Gerson Clayton MD Objective Remarks GENERAL: This is a well-nourished, well-developed patient, in no apparent distress. Laying in hospital bed, rolled over to left side. SKIN: Cool and dry. Decubitus ulcer on right buttocks, covered with gauze dressing; triangular shaped lesion on heal of left foot; wrapped with bandage. Scratches noted on RLE (barnett). HEAD: Atraumatic. Normocephalic. No temporal or scalp tenderness. EYES: Pupils equal round. Some scleral icterus. ENT: Nose without bleeding, purulent drainage or septal hematoma. Airway patent. NECK: Trachea midline. No JVD or lymphadenopathy. Supple, nontender. CARDIOVASCULAR: Regular rate with 3/6 TRICIA. RESPIRATORY: Clear to auscultation. Breath sounds equal bilaterally. GASTROINTESTINAL: Abdomen soft, non-tender, nondistended. No guarding. MUSCULOSKELETAL: Extremities without clubbing, cyanosis, or edema. No joint tenderness, effusion, or edema noted. No calf tenderness. NEUROLOGICAL: Alert and oriented x3.. Procedures Debridement of right buttocks ulcer at bedside 10/[address] Palmer. Medications and IVs Current Medications Medications (Trade) Dose Ordered Sig/Joshua Route Start Time Stop Time Status Last Admin (NS Flush) 2 ml UNSCH PRN IV FLUSH 10/15/16 17:45 (NS Flush) 2 ml BID IV FLUSH 10/15/16 21:00 10/17/16 09:18 (Heparin Inj) 5,000 units Q12H SQ 10/15/16 20:00 Hold 10/16/16 20:19 (Narcan Inj) 0.4 mg UNSCH PRN IV 10/15/16 17:45 (Rula-Colace) 1 tab BID PO 10/15/16 21:00 10/17/16 09:18 (Milk Of Magnesia Liq) 30 ml Q12H PRN PO 10/15/16 17:45 (Senokot) 17.2 mg Q12H PRN PO 10/15/16 17:45 (Dulcolax Supp) 10 mg DAILY PRN RECTAL 10/15/16 17:45 (Lactulose Liq) 30 ml DAILY PRN PO 10/15/16 17:45 Miscellaneous Information 1 Q361D XX 10/15/16 17:45 10/15/16 17:45 (Chlorhexidine 2% Cloth) 3 pack Taper DAILY@04 TOP 10/16/16 04:00 10/12/17 03:59 10/16/16 20:24 (Chlorhexidine 2% Cloth) 3 pack UNSCH PRN TOP 10/15/16 17:45 (Romazicon Inj) 0.2 mg Q1M PRN IV PUSH 10/15/16 18:00 (Ativan) 1 mg Q4H PRN PO 10/15/16 18:00 (Ativan Inj) 1 mg Q4H PRN IV PUSH 10/15/16 18:00 (Ativan) 2 mg Q2H PRN PO 10/15/16 18:00 (Ativan Inj) 2 mg Q2H PRN IV PUSH 10/15/16 18:00 (Ativan Inj) 2 mg Q1H PRN IV PUSH 10/15/16 18:00 Lorazepam 2 mg 2 mg Q15M PRN IV PUSH 10/15/16 18:00 Pharmacy Profile Note 0 ml @ 0 mls/hr UNSCH OTHER 10/15/16 18:30 (Zosyn 3.375 Gm Premix) 50 ml @ 100 mls/hr Q6H IV 10/15/16 20:00 10/17/16 09:18 (Levemir Inj) 5 units Q12HR SQ 10/16/16 08:00 10/17/16 09:20 (D50w (Vial) Inj) 50 ml UNSCH PRN IV 10/16/16 07:30 (Glucagon Inj) 1 mg UNSCH PRN OTHER 10/16/16 07:30 (Norvasc) 5 mg DAILY PO 10/16/16 09:00 10/17/16 09:18 (Aspirin Chew) 81 mg DAILY PO 10/16/16 09:00 10/17/16 09:18 Carvedilol 6.25 mg 6.25 mg Q12HR PO 10/16/16 09:00 10/17/16 09:18 (Vancomycin Inj/ NS 250 ml Inj) 250 ml @ 250 mls/hr Q18H IV 10/16/16 16:00 10/16/16 16:37 Miscellaneous Information SPECIFIC LAB TO BE ELIZABETH... ONCE ONCE .XX 10/18/16 03:45 10/18/16 03:46 (Vasotec Inj) 1.25 mg Q6H PRN IV 10/16/16 15:00 (Dakin'S 0.125% Soln) 500 ml BID TOPICAL 10/16/16 15:00 10/16/16 20:24 (Tylenol) 650 mg Q6H PRN PO 10/17/16 09:30 (Roxicodone) 10 mg Q4H PRN PO 10/17/16 09:45 (Dilaudid Pf Inj) 1 mg Q3H PRN IV 10/17/16 09:30 (Roxicodone) 5 mg Q4H PRN PO 10/17/16 09:30 (Zofran Inj) 4 mg Q6HR PRN IV PUSH 10/17/16 09:30 (Dipti Harvey MD R1) Urinary Catheter: No (Dipti Harvey MD R1) Vascular Central Line Catheter: No (Dipti Harvey MD R1) A/P Assessment and Plan Patient is a 51 year old male who presents to ED with blood glucose of 851, B-Hydroxybutyrate of 0.60 and positive urine cocaine screen. He has three recent hospital admissions/visits for PEA arrest, decubitus ulcer plus hyperglycemia and suicidal ideations. Patient left AMA at last two visits. He is noncompliant with medication and follow-up. Discharge Planning Patient requires debridement of wound on right buttocks, followed by wound care management. Plastic surgery may consider graft/reconstruction once infection is under control. Infection treated with IV antibiotics at this time. (Dipti Harvey MD R1) Attending Attestation The exam, history, and the medical decision-making described in the above note were completed with the assistance of the resident physician. I reviewed and agree with the findings presented. I attest that I had a [id number] encounter with the patient on the same day, and personally performed an assessment and exam. Patient appears to be clinically better today on exam. He is more comfortable. His blood sugars are still elevated and will need his levimir adjusted. Continue close monitoring. (Erica Ellison MD) Problem List: (1) Hyperglycemia Status: Acute Plan: Blood glucose today 213H. Hemoglobin A1C is 13.8H. * Increase Levemir dose from 5 units BID to 7 units BID on 10/17. * Continue NovoLOG Supplemental Scale. Etiology: * Medication non-compliance * Aggravated by infection of decubitus ulcer on right buttocks At admission: * Random glucose 851; repeat random glucose 408 * B-Hydroxybutyrate 0.60H * Urine Glucose 1000H * ABG normal Management: * Received 7 units of NovoLIN IV Push in ED. * Received Sodium Chloride 1,000 ml @ 999 mls/hr bolus IV x3 in ED. * Started on insulin drip. * Ordered NovoLOG Supplemental Scale. * Started Sodium Chloride 1,000 ml @ 125 mls/hr q8h IV - discontinued when blood glucose <250. * Now on Dextrose/Sodium Chloride 1,000 ml @ 200 mls/hr q5h IV. * Monitor blood glucose q1h. (2) Infected decubitus ulcer Status: Acute Plan: Dr Palmer to perform debridement of ulcer at bedside on 10/17. Continues to received vancomycin and Zosyn; antibiotic day #3. Osteomyelitis work-up: * X-Ray Sacrum and Coccyx shows evidence of subcutaneous emphysema. Osseous structures are intact. No definite plain radiographic evidence of osteomyelitis. * WBC wnl * ESR 18 * CRP 0.44H car retarder operator stressed the importance of a debridement of the wound. Made following recommendations: * Please cleanse wound to R buttock with normal saline apply dakin's 0.125% moistened gauze loosely packed into wound bed cover with dry 4x4 gauze pads and ABD pad, Apply skin prep to periwound before securing dressing with tape. Change BID until seen by surgeon. Etiology: * Unknown * Poor healing due to uncontrolled blood sugar; HgbA1C 13.8 During last admission, test tube maker recommended plastic sx consult. However, there wasn't any plastic surgery physician or wound care physician available. GS was consulted but declined the consult due to location of wound. Wound culture grew MRSA and enterocoocus faecalis. Patient was treated with Vancomycin and Zosyn. Left AMA. Has not been on antibiotics or received wound care management. * Started on Vancomycin HCL 1,000mg/Sodium Chloride 250 ml @ 250 mls/hr q24h IV. * Piperacilin Sod/Tazobactam Sod 50 ml @ 100 mls/hr q6h IV. * Wound culture - pending. * Blood culture - pending. * Consulted wound management. (3) Foot lesion Status: Acute Plan: Osteomyelitis work-up: * X-Ray Ankle shows no acute disease. * WBC wnl * ESR 18 * CRP 0.44H car retarder operator made following recommendations: * Please cleanse wound to L heel with normal saline or wound cleanser and apply Xeroform gauze dressing just over wound bed cover with dry 4x4 gauze pads and secure with rolled gauze and tape. Change dressing every other day or PRN if saturated or dislodged. (4) Acute kidney insufficiency Status: Resolved Plan: Normalized. Etiology: * Possible dehydration. BUN/Cr 14/0.92. Monitor. At last admissions, BUN/Cr were initially elevated but quickly normalized following fluid administration. * Received Sodium Chloride 1,000 ml @ 999 mls/hr bolus IV x3 in ED. * Started Sodium Chloride 1,000 ml @ 125 mls/hr q8h IV - discontinued when blood glucose <250. * Now on Dextrose/Sodium Chloride 1,000 ml @ 200 mls/hr q5h IV. * Monitor fluid administration closely - patient has CHF; consider Lasix if fluid overload is suspected. (5) Hyponatremia Status: Acute Plan: Sodium has been normal over last two days; today 131L. Monitor closely. Etiology: * Hyperglycemia At admission, Na 119, corrected 131; repeat Na 131. Monitor closely. (6) Hyperkalemia Status: Resolved Plan: Normalized. Etiology: * Hyperglycemia At admission, K 5.5; repeat K 5.2. Monitor closely. * Potassium Chloride 100 ml @ 100 mls/hr q1h PRN IV on board. (7) Cocaine abuse Status: Chronic Plan: Patient now alert and oriented x3. Hx of cocaine use. At admission, Urine Cocaine Screen positive. Patient altered. Monitor closely. CIWA protocol as precaution. (8) CHF (congestive heart failure) Status: Chronic Plan: PEA arrest on 09/16/16. Hx of CHF and cardiomyopathy. * Troponin x2 negative. * CKMB x 2 wnl. * Serial EKG pending. * BNP 146H. (9) Fluid, Electrolyte, Nutrition, and Prophylaxis Status: Acute Plan: Fluid: * Tolerating PO. Electrolyte: * Monitor and replete if necessary. * See hyponatremia. * See hyperkalemia. Nutrition: * Diet 2000 ADA Consistent Carb * Nutrition consult pending - appreciate recommendations with regard to protein intake * Pre-albumin 10L. DVT Prophylaxis: * Heparin 5,000 units q12h SQ GI Prophylaxis: * Not indicated at this time. (Dipti Harvey MD R1) Problem Qualifiers (1) Infected decubitus ulcer: Qualified Code: L89.95 - Infected decubitus ulcer, unstageable Dipti Harvey MD R1 Oct 17, 2016 11:07 Erica Ellison MD Oct 17, 2016 12:04
[2016-10-17] MEDS: VANCOMYCIN INJ 1,000 MG in SODIUM CHLOR 0.9% 250 ML INJ 250 ML IV SCH (12:42)
--- NOTE | 2016-10-17 18:02 | PD.CONS ---
cc: Celestine Palmer MD HPI Service General Surgery Consult Requested By Dr. Narayanan Reason for Consult Evaluation of decubitus ulcer Primary Care Physician No Primary Care Physician History of Present Illness This is a 51-year-old male with a past medical history of cardiomyopathy, CHF, hypertension, diabetes mellitus, and hepatitis C. The patient has had multiple admissions over the past several weeks. The patient's had a PEA in August of this year. He reports to the emergency department because he felt like his blood sugar was high. He states on admission that he had a wound on his buttocks which has been there since admission in August. Pain located on right buttock, 6/10, currently 4/10, worse with movement, better with sitting still. Over the past several weeks this has gotten worse. A General Surgery consultation has been requested for evaluation of a decubitus ulcer. Review of Systems Constitutional: DENIES: Fever, Chills Endocrine: DENIES: Heat/cold intolerance Eyes: DENIES: Diplopia Ears, nose, mouth, throat: DENIES: Hearing loss Respiratory: DENIES: Apneas, Cough Cardiovascular: DENIES: Chest pain Gastrointestinal: DENIES: Abdominal pain, Nausea, Vomiting Genitourinary: DENIES: Dysuria Musculoskeletal: DENIES: Joint pain Integumentary: DENIES: Abnormal pigmentation Hematologic/lymphatic: DENIES: Bruising Immunologic/allergic: DENIES: Eczema Neurologic: DENIES: Headache, Localized weakness Psychiatric: DENIES: Mood changes, Depression, Hallucinations Past Family Social History Past Medical History DE PEA arrest Cardiomyopathy CHF Hypertension Diabetes mellitus Hepatitis C Past Surgical History Hernia repair Reported Medications Coreg Norvasc Lasix Aspirin Vitamin D Allergies: Coded Allergies: *MDRO Multi-Drug Resistant Organism (Verified Adverse Reaction, Unknown, ) MRSA PCR Screen 10/16/16 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, 10/15/16, (back) 10/15/16 Active Ordered Medications Current Medications Medications (Trade) Dose Ordered Sig/Joshua Route Start Time Stop Time Status Last Admin (NS Flush) 2 ml UNSCH PRN IV FLUSH 10/15/16 17:45 (NS Flush) 2 ml BID IV FLUSH 10/15/16 21:00 10/17/16 09:18 (Heparin Inj) 5,000 units Q12H SQ 10/15/16 20:00 Hold 10/16/16 20:19 (Narcan Inj) 0.4 mg UNSCH PRN IV 10/15/16 17:45 (Rula-Colace) 1 tab BID PO 10/15/16 21:00 10/17/16 09:18 (Milk Of Magnesia Liq) 30 ml Q12H PRN PO 10/15/16 17:45 (Senokot) 17.2 mg Q12H PRN PO 10/15/16 17:45 (Dulcolax Supp) 10 mg DAILY PRN RECTAL 10/15/16 17:45 (Lactulose Liq) 30 ml DAILY PRN PO 10/15/16 17:45 Miscellaneous Information 1 Q361D XX 10/15/16 17:45 10/15/16 17:45 (Chlorhexidine 2% Cloth) 3 pack Taper DAILY@04 TOP 10/16/16 04:00 10/12/17 03:59 10/16/16 20:24 (Chlorhexidine 2% Cloth) 3 pack UNSCH PRN TOP 10/15/16 17:45 (Romazicon Inj) 0.2 mg Q1M PRN IV PUSH 10/15/16 18:00 (Ativan) 1 mg Q4H PRN PO 10/15/16 18:00 (Ativan Inj) 1 mg Q4H PRN IV PUSH 10/15/16 18:00 (Ativan) 2 mg Q2H PRN PO 10/15/16 18:00 (Ativan Inj) 2 mg Q2H PRN IV PUSH 10/15/16 18:00 (Ativan Inj) 2 mg Q1H PRN IV PUSH 10/15/16 18:00 Lorazepam 2 mg 2 mg Q15M PRN IV PUSH 10/15/16 18:00 Pharmacy Profile Note 0 ml @ 0 mls/hr UNSCH OTHER 10/15/16 18:30 (Zosyn 3.375 Gm Premix) 50 ml @ 100 mls/hr Q6H IV 10/15/16 20:00 10/17/16 15:08 (D50w (Vial) Inj) 50 ml UNSCH PRN IV 10/16/16 07:30 (Glucagon Inj) 1 mg UNSCH PRN OTHER 10/16/16 07:30 (Norvasc) 5 mg DAILY PO 10/16/16 09:00 10/17/16 09:18 (Aspirin Chew) 81 mg DAILY PO 10/16/16 09:00 10/17/16 09:18 Carvedilol 6.25 mg 6.25 mg Q12HR PO 10/16/16 09:00 10/17/16 09:18 (Vancomycin Inj/ NS 250 ml Inj) 250 ml @ 250 mls/hr Q18H IV 10/16/16 16:00 10/17/16 12:42 Miscellaneous Information SPECIFIC LAB TO BE ELIZABETH... ONCE ONCE .XX 10/18/16 03:45 10/18/16 03:46 (Vasotec Inj) 1.25 mg Q6H PRN IV 10/16/16 15:00 (Dakin'S 0.125% Soln) 500 ml BID TOPICAL 10/16/16 15:00 10/16/16 20:24 (Tylenol) 650 mg Q6H PRN PO 10/17/16 09:30 (Roxicodone) 10 mg Q4H PRN PO 10/17/16 09:45 (Dilaudid Pf Inj) 1 mg Q3H PRN IV 10/17/16 09:30 (Roxicodone) 5 mg Q4H PRN PO 10/17/16 09:30 (Zofran Inj) 4 mg Q6HR PRN IV PUSH 10/17/16 09:30 (Levemir Inj) 7 units Q12HR SQ 10/17/16 21:00 Family History Noncontributory Social History Per electronic medical record the patient is homeless. It is documented that the patient admits to using cocaine. Physical Exam Vital Signs Vital Signs Date Time Temp Pulse Resp B/P Pulse Ox O2 Delivery O2 Flow Rate FiO2 10/17/16 14:00 70 10/17/16 13:00 156/80 10/17/16 12:00 98.4 67 12 206/117 92 10/17/16 12:00 71 10/17/16 10:00 76 10/17/16 08:00 98.0 65 19 164/77 98 10/17/16 08:00 70 10/17/16 06:00 70 10/17/16 04:00 98.5 62 15 146/84 91 10/17/16 04:00 62 10/17/16 02:00 64 10/17/16 00:00 65 10/17/16 00:00 97.8 65 17 138/73 97 10/16/16 22:00 79 10/16/16 20:00 98.0 68 19 129/89 99 10/16/16 20:00 68 10/16/16 18:00 72 10/16/16 18:00 64 17 158/75 100 Physical Exam GENERAL: A 51-year-old thin male resting in bed. SKIN: Large decubitus ulcer on right buttocks. HEAD: Atraumatic. Normocephalic. EYES: Pupils equal and round. No scleral icterus. No injection or drainage. ENT: No nasal bleeding or discharge. Mucous membranes pink and moist. NECK: Trachea midline. CARDIOVASCULAR: Regular rate and rhythm. RESPIRATORY: No accessory muscle use. Clear to auscultation. Breath sounds equal bilaterally. GASTROINTESTINAL: Abdomen soft, non-tender, nondistended. MUSCULOSKELETAL: Extremities without clubbing, cyanosis, or edema. No obvious deformities. NEUROLOGICAL: Awake and alert. No obvious cranial nerve deficits. Motor grossly within normal limits. Five out of 5 muscle strength in the arms and legs. Normal speech. PSYCHIATRIC: Appropriate mood and affect; insight and judgment normal. Laboratory Laboratory Tests Test 10/16/16 10/16/16 10/17/16 18:43 18:48 04:32 Erythrocyte Sedimentation Rate 18 Hemoglobin A1c 13.8 C-Reactive Protein 0.44 Prealbumin 10 White Blood Count 5.4 Red Blood Count 5.00 Hemoglobin 13.0 Hematocrit 39.4 Mean Corpuscular Volume 78.7 Mean Corpuscular Hemoglobin 25.9 Mean Corpuscular Hemoglobin 32.9 Concent Red Cell Distribution Width 13.9 Platelet Count 179 Mean Platelet Volume 9.4 Neutrophils (%) (Auto) 54.8 Lymphocytes (%) (Auto) 27.0 Monocytes (%) (Auto) 10.8 Eosinophils (%) (Auto) 6.5 Basophils (%) (Auto) 0.9 Neutrophils # (Auto) 3.0 Lymphocytes # (Auto) 1.5 Monocytes # (Auto) 0.6 Eosinophils # (Auto) 0.4 Basophils # (Auto) 0.0 CBC Comment DIFF FINAL Differential Comment Sodium Level 131 Potassium Level 3.9 Chloride Level 97 Carbon Dioxide Level 26.9 Anion Gap 7 Blood Urea Nitrogen 14 Creatinine 0.92 Estimat Glomerular Filtration 105 Rate Random Glucose 213 Calcium Level 8.1 Total Bilirubin 0.5 Aspartate Amino Transf 49 (AST/SGOT) Alanine Aminotransferase 69 (ALT/SGPT) Alkaline Phosphatase 133 Total Protein 6.0 Albumin 2.0 Date/Time Procedure Status Source Growth 10/15/16 18:00 Gram Stain - Final Complete Wound Buttock 10/15/16 18:00 Wound Culture - Final Complete S. Aureus Mrsa 10/15/16 15:20 Aerobic Blood Culture - Preliminary Resulted Blood Peripheral NO GROWTH IN 2 DAYS 10/15/16 15:20 Anaerobic Blood Culture - Preliminary Resulted Blood Peripheral NO GROWTH IN 2 DAYS Result Diagram: 10/17/16 0432 10/17/16 0432 Imaging Last 48 hours Impressions Sacrum and Coccyx X-Ray 10/16/16 0000 Signed Impressions: Service Date/Time: September 17:51 - CONCLUSION: Subcutaneous emphysema in this patient with decubitus ulcer. Osseous structures are intact. No definite plain radiographic evidence of osteomyelitis. Gerson Clayton MD Ankle X-Ray 10/16/16 0000 Signed Impressions: Service Date/Time: September 17:45 - CONCLUSION: No acute disease. Gerson Clayton MD Assessment and Plan Assessment and Plan 51-year-old male with multiple medical problems including diabetes mellitus with large right buttocks decubitus ulcer. -Plan for bedside debridement of wound and placement of wound VAC -Diet as tolerated -Plan to change wound VAC on Thursday at bedside -Continue antibiotics -Okay to transfer to the floor from a General Surgery standpoint Discussed Condition With Dr. Spencer Drake RN Attending Statement large sacral decub ulcer will obtain source control with debridement and vac placement Pt needs to be transferred to another facility for eval and possible tissue flap placement currently no plastic services available for treatment, no wound care available. Hannah Hadley Oct 17, 2016 18:02 Celestine Palmer MD Oct 22, 2016 13:53
[2016-10-17] MEDS ORDERED: INSULIN DETEMIR 100 UNITS/ML VIAL SQ SCH (21:00)
[2016-10-18] VITALS: BP 122/76; PULSE 95; RESP 18; TEMP 98.6; O2SAT 97
[2016-10-18] MEDS: PIPERACIL-TAZO 3.375 GM PREMIX 50 ML IV SCH ×4 (02:14→22:51)
[2016-10-18] MEDS ORDERED: PHARMACY ORDERED LAB ONE (03:45)
[2016-10-18 03:56] LABS: HEMATOCRIT 40.5 % (39.0-51.0); MEAN CELL VOLUME 79.7 FL (80.0-100.0); MEAN CORPUSCULAR HEMOGLOBIN 25.4 PG (27.0-34.0); MEAN CORPUSCULAR HGB CONC 31.9 % (32.0-36.0); PLATELET COUNT 212 TH/MM3 (150-450); RED BLOOD COUNT 5.09 MIL/MM3 (4.50-5.90); REVIEW FLAG FINAL; WHITE BLOOD COUNT 4.6 TH/MM3 (4.0-11.0)
[2016-10-18] MEDS: CHLORHEXIDINE GLUCONATE 2 % 1 PACK (2 CLOTHS) TOP SCH ×2 (04:00→19:41)
[2016-10-18 04:33] LABS: BICARBONATE 31.4 MEQ/L (21.0-32.0); POTASSIUM 4.4 MEQ/L (3.5-5.1); VANCOMYCIN TROUGH 5.3 MCG/ML (5.0-10.0)
[2016-10-18] MEDS: VANCOMYCIN INJ 1,000 MG in SODIUM CHLOR 0.9% 250 ML INJ 250 ML IV SCH (04:45)
[2016-10-18] MEDS: INSULIN ASPART SUPPLEMENTAL SCALE SQ SCH ×4 (06:51→23:07)
[2016-10-18] MEDS ORDERED: INSULIN DETEMIR 100 UNITS/ML VIAL SQ SCH (07:37)
[2016-10-18 08:00] VITALS: BP 109/67; PULSE 69; RESP 16; TEMP 98.2; O2SAT 95
[2016-10-18] MEDS: HEPARIN SODIUM - SQ 10,000 UNITS/ML VIAL SQ SCH ×3 (08:00→22:51)
[2016-10-18] MEDS: SODIUM CHLORIDE 0.9% FLUSH 10 ML FLUSH IV FLUSH SCH (08:11)
[2016-10-18] MEDS: ASPIRIN 81 MG CHEW TAB PO SCH (08:11)
[2016-10-18] MEDS: amLODIPine BESYLATE 5 MG TAB PO SCH (08:11)
[2016-10-18] MEDS: DOCUSATE SODIUM 50 MG/SENNA 8.6 MG TAB PO SCH ×2 (08:11→22:51)
[2016-10-18] MEDS: CARVEDILOL 6.25 MG TAB PO SCH ×2 (08:11→22:51)
[2016-10-18] MEDS: SODIUM HYPOCHLORITE 0.125% 500 ML BTL TOPICAL SCH ×2 (09:00→21:00)
--- NOTE | 2016-10-18 09:01 | HHI.FPPN ---
Subjective Remarks Patient was seen and examined this morning. Per patient the surgeon "did his thing" yesterday and the bedside I&D was tolerated well. He denies fevers, chills, n/v, abdominal pain. He is ambulating about the room. He states his wound is not causing him much pain this morning and that the wound vac is comfortable. He has been eating solid foods since yesterday morning. He has not had a bowel movement since 10/16/16 early AM but is passing flatus. (Joanne Soriano MD R1) Objective Vitals Vital Signs Date Time Temp Pulse Resp B/P Pulse Ox O2 Delivery O2 Flow Rate FiO2 10/18/16 08:00 98.2 69 16 109/67 95 10/18/16 00:00 98.6 95 18 122/76 97 10/17/16 20:00 97.6 97 16 132/78 97 10/17/16 14:00 70 10/17/16 13:00 156/80 10/17/16 12:00 98.4 67 12 206/117 92 10/17/16 12:00 71 10/17/16 10:00 76 I/O 10/17/16 10/17/16 10/17/16 10/18/16 10/18/16 10/18/16 06:59 14:59 22:59 06:59 14:59 22:59 Intake Total 60 ml 776 ml 240 ml Output Total 475 ml 550 ml 500 ml 1100 ml Balance -415 ml 226 ml -500 ml -860 ml Intake Oral 480 ml 240 ml IV Total 60 ml 296 ml Output Urine Total 475 ml 500 ml 500 ml 1100 ml Drainage Total 50 ml (Joanne Soriano MD R1) Result Diagram: 10/18/16 0345 10/18/16 0345 Imaging Last Impressions Sacrum and Coccyx X-Ray 10/16/16 0000 Signed Impressions: Service Date/Time: September 17:51 - CONCLUSION: Subcutaneous emphysema in this patient with decubitus ulcer. Osseous structures are intact. No definite plain radiographic evidence of osteomyelitis. Gerson Clayton MD Ankle X-Ray 10/16/16 0000 Signed Impressions: Service Date/Time: September 17:45 - CONCLUSION: No acute disease. Gerson Clayton MD Objective Remarks GENERAL: This is a well-nourished, well-developed patient, in no apparent distress. Lying in hospital bed resting on left side. SKIN: Cool and dry. Decubitus ulcer on right buttocks currently with wound vac in place, draining serosanguinous fluid and some thick yellow material. Continuous small volume drainage into wound vac. HEAD: Atraumatic. Normocephalic. No temporal or scalp tenderness. EYES: Pupils equal round. Some scleral icterus. ENT: Nose without bleeding, purulent drainage or septal hematoma. Airway patent. NECK: Trachea midline. No JVD or lymphadenopathy. Supple, nontender. CARDIOVASCULAR: Regular rate with 2/6 TRICIA. RESPIRATORY: Clear to auscultation. Breath sounds equal bilaterally. GASTROINTESTINAL: Abdomen soft, non-tender, nondistended. No guarding. Hypoactive bowel sounds. MUSCULOSKELETAL: Extremities without clubbing, cyanosis, or edema. No joint tenderness, effusion, or edema noted. No calf tenderness. Right foot wrapped in EDUIN bandage. NEUROLOGICAL: Alert and oriented x3. stonecutter hand grossly intact. Speech normal. Procedures Debridement of right buttocks ulcer at bedside 10/[address] Palmer. Medications and IVs Inpatient Medications Acetaminophen (Tylenol) 650 mg Q6H PRN PO PAIN SCALE 1 TO 2; Start 10/17/16 at 09:30 Amlodipine Besylate (Norvasc) 5 mg DAILY PO Last administered on 10/18/16 08: 11; Start 10/16/16 at 09:00 Aspirin (Aspirin Chew) 81 mg DAILY PO Last administered on 10/18/16 08:11; Start 10/16/16 at 09:00 Bisacodyl (Dulcolax Supp) 10 mg DAILY PRN RECTAL SEVERE CONSITIPATION; Start at 17:45 Carvedilol 6.25 mg 6.25 mg Q12HR PO Last administered on 10/18/16 08:11; Start 10/16/16 at 09:00 Chlorhexidine Gluconate (Chlorhexidine 2% Cloth) 3 pack UNSCH PRN TOP HYGIENIC CARE; Start 10/15/16 at 17:45 Dextrose (D50w (Vial) Inj) 50 ml UNSCH PRN IV HYPOGLYCEMIA-SEE COMMENTS; Start 10/16/16 at 07:30 Dextrose/Sodium Chloride 1,000 ml @ 150 mls/hr Q6H40M IV Last administered on 10/16/16 02:12; Start 10/15/16 at 17:39; Stop 10/16/16 at 07:35; Status DC Enalaprilat (Vasotec Inj) 1.25 mg Q6H PRN IV SBP> OR = 170, DBP> OR = 100; Start 10/16/16 at 15:00 Flumazenil (Romazicon Inj) 0.2 mg Q1M PRN IV PUSH SEE LABEL COMMENTS; Start at 18:00 Glucagon (Glucagon Inj) 1 mg UNSCH PRN OTHER HYPOGLYCEMIA-SEE COMMENTS; Start 10/16/16 at 07:30 Heparin Sodium (Porcine) (Heparin Inj) 5,000 units Q12H SQ Last administered on 10/18/16 08:00; Start 10/15/16 at 20:00 Hydromorphone HCl (Dilaudid Pf Inj) 1 mg Q3H PRN IV BREAKTHROUGH PAIN; Start at 09:30 Insulin Aspart (NovoLOG SUPPLEMENTAL SCALE) 1 ACHS SLIDING SCALE SQ Last administered on 10/18/16 06:51; Start 10/15/16 at 21:00 Insulin Detemir (Levemir Inj) 10 units BIDAC SQ Last administered on 10/18/16 07:37; Start 10/18/16 at 07:37 Insulin Human Regular (NovoLIN R INJ) 7 units ONCE ONCE IV PUSH Last administered on 10/15/16 17:22; Start 10/15/16 at 17:15; Stop 10/15/16 at 17:16 ; Status DC Insulin Human Regular 100 units/ Sodium Chloride 100 ml @ 0 mls/hr TITRATE IV Last administered on 10/15/16 19:43; Start 10/15/16 at 17:45; Stop 10/16/16 at 10:00; Status DC Lactulose 30 ml 30 ml DAILY PRN PO SEVERE CONSITIPATION; Start 10/15/16 at 17: 45 Lorazepam (Ativan Inj) 2 mg Q1H PRN IV PUSH CIWA 15-20; Start 10/15/16 at 18:00 Lorazepam (Ativan) 2 mg Q2H PRN PO CIWA 11-14; Start 10/15/16 at 18:00 Lorazepam 2 mg 2 mg Q15M PRN IV PUSH CIWA > 20; Start 10/15/16 at 18:00 Magnesium Hydroxide (Milk Of Sarah Liabdi) 30 ml Q12H PRN PO MILD - MODERATE CONSTIPATION; Start 10/15/16 at 17:45 Miscellaneous Information SPECIFIC LAB TO BE ELIZAB[facility]... ONCE ONCE .XX Last administered on 10/18/16 03:45; Start 10/18/16 at 03:45; Stop 10/18/16 at 03:46 ; Status DC Morphine Sulfate (Morphine Inj) 4 mg ONCE ONCE IM Last administered on 23:45; Start 10/16/16 at 23:45; Stop 10/16/16 at 23:46; Status DC Naloxone HCl (Narcan Inj) 0.4 mg UNSCH PRN IV SEE LABEL COMMENTS; Start at 17:45 Ondansetron HCl (Zofran Inj) 4 mg Q6HR PRN IV PUSH NAUSEA OR VOMITING; Start at 09:30 Oxycodone HCl (Roxicodone) 5 mg Q4H PRN PO PAIN SCALE 3 TO 5; Start 10/17/16 at 09:30 Pharmacy Profile Note 0 ml @ 0 mls/hr UNSCH OTHER ; Start 10/15/16 at 18:30 Piperacillin Sod/ Tazobactam Sod (Zosyn 3.375 Gm Premix) 50 ml @ 100 mls/hr Q6H IV Last administered on 10/18/16 08:17; Start 10/15/16 at 20:00 Potassium Chloride (KCl 20 Meq Premix Inj) 100 ml @ 50 mls/hr Q2H PRN IV SEE LABEL COMMENTS; Start 10/15/16 at 17:45; Stop 10/16/16 at 07:35; Status DC Senna/Docusate Sodium (Rula-Colace) 1 tab BID PO Last administered on 08:11; Start 10/15/16 at 21:00 Sennosides (Senokot) 17.2 mg Q12H PRN PO MODERATE - SEVERE CONSTIPATION; Start 10/15/16 at 17:45 Sodium Bicarbonate 50 meq 50 meq UNSCH PRN IV SEE LABEL COMMENTS; Start at 17:45; Stop 10/16/16 at 07:35; Status DC Sodium Hypochlorite (Dakin'S 0.125% Soln) 500 ml BID TOPICAL Last administered on 10/16/16 20:24; Start 10/16/16 at 15:00 Sodium Bicarbonate (Sodium Bicarbonate 8.4% Inj) 100 meq UNSCH PRN IV SEE LABEL COMMENTS; Start 10/15/16 at 17:45; Stop 10/16/16 at 07:35; Status DC Sodium Chloride 1,000 ml @ 250 mls/hr Q4H IV Last administered on 10/15/16 19 :39; Start 10/15/16 at 17:39; Stop 10/16/16 at 07:35; Status DC Sodium Chloride (NS 1000 ml Inj) 1,000 ml @ 125 mls/hr Q8H IV Last administered on 10/15/16 17:24; Start 10/15/16 at 17:15; Stop 10/15/16 at 19:20 ; Status DC Sodium Chloride (NS Flush) 2 ml BID IV FLUSH Last administered on 10/18/16 08: 11; Start 10/15/16 at 21:00 Sodium Phosphate/ Sodium Chloride (Sodium Phosphate Inj/NS Inj) 105 ml @ 25 mls /hr UNSCH PRN IV SEE LABEL COMMENTS; Start 10/15/16 at 17:45; Stop 10/16/16 at 07:35; Status DC Vancomycin HCl 1000 mg/Sodium Chloride 250 ml @ 250 mls/hr Q24H IV Last administered on 10/15/16 22:35; Start 10/15/16 at 20:00; Stop 10/16/16 at 10:20 ; Status DC Vancomycin HCl/ Sodium Chloride (Vancomycin Inj/ NS 250 ml Inj) 250 ml @ 250 mls/hr Q18H IV Last administered on 10/18/16 04:45; Start 10/16/16 at 16:00 ( Joanne Soriano MD R1) Urinary Catheter: No (Joanne Soriano MD R1) Vascular Central Line Catheter: No (Joanne Soriano MD R1) A/P Assessment and Plan 51-year-old male with history of poorly controlled diabetes admitted for hyperglycemia crisis (HHS) and extensive right buttock wound which is being surgically managed. Discharge Planning Unclear at this time. His hyperglycemia is being managed and is stable. His right buttock wound is actively being managed and he is status post debridement on 10/17 with persistent wound VAC. Infection treated with IV antibiotics at this time and wound is MRSA positive. (Joanne Soriano MD R1) Attending Attestation Patient seen and examined. Case reviewed and discussed with the resident team. Agree with plan of care as discussed with me and documented in the resident note. (Erica Ellison MD) Problem List: (1) Hyperglycemia Status: Acute Plan: Serum glucose today 387. Hemoglobin A1C is 13.8H. He has required 5-9 units NovoLog during scheduled Accu-Cheks over the last 24 hours * We'll again increase Levemir dose from 7 units BID to 10 units BIDAC as he has continued to require significant supplemental NovoLog * Continue NovoLog Supplemental Scale low-dose. Etiology: * Medication non-compliance * Aggravated by infection of decubitus ulcer on right buttocks At admission: * Random glucose 851; repeat random glucose 408 * B-Hydroxybutyrate 0.60H * Urine Glucose 1000H * ABG normal Management: * Received 7 units of NovoLIN IV Push in ED. * Received Sodium Chloride 1,000 ml @ 999 mls/hr bolus IV x3 in ED. * Started on insulin drip. * Ordered NovoLOG Supplemental Scale. * Started NS @ 125 mls/hr q8h IV - discontinued when blood glucose <250. * Transition to D5NS @ 200 mls/hr, now on diabetic diet with IVF discontinued. * Monitored blood glucose q1h and BMP every 3. * Beta hydroxybutyrate normalized on repeat * Patient has been alert and oriented throughout hospital stay aside from mild sedation at admission (2) Infected decubitus ulcer Status: Acute Plan: Status post bedside debridement 10/[address] Palmer, which patient tolerated well. Continues to received vancomycin and Zosyn; antibiotic day #4. Will consult Infectious Disease to follow patient course, as patient is growing MRSA on wound and has previously been MRSA positive Hospital course: Admitted for [facility] and noted to have extensive clinically infected decubitus ulcer Osteomyelitis work-up negative: * X-Ray Sacrum and Coccyx shows evidence of subcutaneous emphysema. Osseous structures are intact. No definite plain radiographic evidence of osteomyelitis. * WBC wnl * ESR 18 * CRP 0.44H therapy teacher recommended debridement wound. Made following recommendations: * Please cleanse wound to R buttock with normal saline apply dakin's 0.125% moistened gauze loosely packed into wound bed cover with dry 4x4 gauze pads and ABD pad, Apply skin prep to periwound before securing dressing with tape. Change BID until seen by surgeon. Etiology: * Possibly prolonged immobilization * Poor healing due to uncontrolled blood sugar; HgbA1C 13.8 During last admission, health consultant recommended plastic sx consult. However, there wasn't any plastic surgery physician or wound care physician available. GS was consulted but declined the consult due to location of wound. Wound culture grew MRSA and enterococcus faecalis. Patient was treated with Vancomycin and Zosyn. Left AMA. Has not been on antibiotics or received wound care management. * Started on Vancomycin with Vanc pharmacy consult (10/15-current) * Zosyn 4.5 g q6h IV (10/15- current) * Wound culture 10/15 -MRSA * Blood culture 10/15-no growth in 2 days * Consulted wound management. (3) Foot lesion Status: Acute Plan: Osteomyelitis work-up: * X-Ray Ankle shows no acute disease. * WBC wnl * ESR 18 * CRP 0.44H therapy teacher made following recommendations: * Please cleanse wound to L heel with normal saline or wound cleanser and apply Xeroform gauze dressing just over wound bed cover with dry 4x4 gauze pads and secure with rolled gauze and tape. Change dressing every other day or PRN if saturated or dislodged. (4) Acute kidney insufficiency Status: Resolved Plan: Normalized. Etiology: * Possible dehydration. BUN/Cr 14/0.92. Monitor. At last admissions, BUN/Cr were initially elevated but quickly normalized following fluid administration. * Received Sodium Chloride 1,000 ml @ 999 mls/hr bolus IV x3 in ED. * Started Sodium Chloride 1,000 ml @ 125 mls/hr q8h IV - discontinued when blood glucose <250. * Now on Dextrose/Sodium Chloride 1,000 ml @ 200 mls/hr q5h IV. * Monitor fluid administration closely - patient has CHF; consider Lasix if fluid overload is suspected. (5) Hyponatremia Status: Acute Plan: Sodium corrected for hyperglycemia today is 135 Continue to monitor closely Etiology: * Hyperglycemia At admission, Na 119, corrected 131; repeat Na 131. Monitor closely. (6) Hyperkalemia Status: Resolved Plan: Normalized. Etiology: * Hyperglycemia At admission, K 5.5; repeat K 5.2. Monitor closely. * Potassium Chloride 100 ml @ 100 mls/hr q1h PRN IV on board. (7) Cocaine abuse Status: Chronic Plan: Patient now alert and oriented x3. Hx of cocaine use. At admission, Urine Cocaine Screen positive. Patient altered. Monitor closely. CIWA protocol as precaution. (8) CHF (congestive heart failure) Status: Chronic Plan: PEA arrest on 09/16/16. Hx of CHF and cardiomyopathy. * Troponin x3 negative. * CKMB x 2 wnl. * Serial EKGs with no evidence of acute ischemia * BNP 146H. (9) Fluid, Electrolyte, Nutrition, and Prophylaxis Status: Acute Plan: Fluid: * Tolerating PO. Electrolyte: * Monitor and replete if necessary. * See hyponatremia. * See hyperkalemia. Nutrition: * Diet 2000 ADA Consistent Carb * Nutrition consulted, appreciate recs: Recommended continue current diet and add Tim 2 packs per day in addition to daily MVI * Pre-albumin 10L. DVT Prophylaxis: * Heparin 5,000 units q12h SQ GI Prophylaxis: * Not indicated at this time. (Joanne Soriano MD R1) Problem Qualifiers (1) Infected decubitus ulcer: Qualified Code: L89.95 - Infected decubitus ulcer, unstageable Joanne Soriano MD R1 Oct 18, 2016 09:01 Erica Ellison MD Oct 18, 2016 14:42
[2016-10-18] MEDS: MULTIVITAMIN TAB PO SCH (11:47)
[2016-10-18 12:00] VITALS: BP 100/58; PULSE 67; RESP 17; TEMP 97.6; O2SAT 94
[2016-10-18 16:00] VITALS: BP 119/65; PULSE 77; RESP 17; TEMP 98.8; O2SAT 96
[2016-10-18] MEDS: VANCOMYCIN 1,000 MG/NS 250 ML IV SCH ×2 (17:16)
[2016-10-18 20:00] VITALS: BP 126/80; PULSE 73; RESP 20; TEMP 98.7; O2SAT 98
[2016-10-18] MEDS: INSULIN DETEMIR 100 UNITS/ML VIAL SQ SCH (23:08)
[2016-10-19] VITALS: BP 121/79; PULSE 73; RESP 20; TEMP 98.8; O2SAT 97
[2016-10-19] MEDS: PIPERACIL-TAZO 3.375 GM PREMIX 50 ML IV SCH ×2 (01:06→08:55)
[2016-10-19] MEDS: SODIUM CHLORIDE 0.9% FLUSH 10 ML FLUSH IV FLUSH SCH ×3 (01:07→21:44)
[2016-10-19] MEDS: VANCOMYCIN 1,000 MG/NS 250 ML IV SCH ×2 (03:52)
[2016-10-19 05:19] LABS: BASOPHIL # 0.1 TH/MM3 (0-0.2); BASOPHIL % 0.6 % (0.0-2.0); EOSINOPHIL # 0.3 TH/MM3 (0-0.4); EOSINOPHIL % 3.5 % (0.0-4.0); HEMO FLAGS DIFF FINAL; LYMPH % 36.3 % (9.0-44.0); LYMPHOCYTE # 3.2 TH/MM3 (1.0-4.8); MEAN CELL VOLUME 79.2 FL (80.0-100.0); MEAN CORPUSCULAR HEMOGLOBIN 25.6 PG (27.0-34.0); MEAN CORPUSCULAR HGB CONC 32.3 % (32.0-36.0); MONO % 14.6 % (0.0-8.0); PLATELET COUNT 281 TH/MM3 (150-450); RED CELL DISTRIBUTION WIDTH 13.4 % (11.6-17.2); WHITE BLOOD COUNT 8.9 TH/MM3 (4.0-11.0)
[2016-10-19 05:33] LABS: ALKALINE PHOSPHATASE 145 U/L (45-117); ALT (GPT) 75 U/L (12-78); ANION GAP 8 MEQ/L (5-15); AST (GOT) 50 U/L (15-37); BICARBONATE 28.5 MEQ/L (21.0-32.0); BLOOD UREA NITROGEN 17 MG/DL (7-18); CHLORIDE 98 MEQ/L (98-107); GLOMERULAR FILTRATION RATE 101 ML/MIN (>89); POTASSIUM 3.6 MEQ/L (3.5-5.1); SODIUM (NA) 134 MEQ/L (136-145); TOTAL BILIRUBIN ADULT 0.5 MG/DL (0.2-1.0)
[2016-10-19] MEDS: INSULIN ASPART SUPPLEMENTAL SCALE SQ SCH ×4 (06:09→21:50)
[2016-10-19] MEDS: INSULIN DETEMIR 100 UNITS/ML VIAL SQ SCH ×2 (06:09→17:26)
[2016-10-19] MEDS ORDERED: INSULIN DETEMIR 100 UNITS/ML VIAL SQ SCH (07:00)
[2016-10-19 08:00] VITALS: BP 118/68; PULSE 70; RESP 18; TEMP 96.7; O2SAT 96
[2016-10-19] MEDS: HEPARIN SODIUM - SQ 10,000 UNITS/ML VIAL SQ SCH ×3 (08:00→21:43)
[2016-10-19] MEDS: DOCUSATE SODIUM 50 MG/SENNA 8.6 MG TAB PO SCH ×3 (08:54→21:43)
[2016-10-19] MEDS: CARVEDILOL 6.25 MG TAB PO SCH ×2 (08:54→21:43)
[2016-10-19] MEDS: ASPIRIN 81 MG CHEW TAB PO SCH (08:54)
[2016-10-19] MEDS: amLODIPine BESYLATE 5 MG TAB PO SCH (08:54)
[2016-10-19] MEDS: SODIUM HYPOCHLORITE 0.125% 500 ML BTL TOPICAL SCH ×2 (08:55→21:00)
[2016-10-19] MEDS: MULTIVITAMIN TAB PO SCH (08:55)
--- NOTE | 2016-10-19 09:09 | PD.CONS ---
History of Present Illness Service Infectious disease Consult Requested By Dr Soriano Reason for Consult Evaluate patient with infected wound Primary Care Physician No Primary Care Physician Diagnoses: History of Present Illness Patient seen and examined. Records reviewed. Patient is a 51-year-old male, presented to the hospital for further evaluation of his wounds. According to the patient he developed the wound during his hospitalization back in August. At that time he had cardiac arrest which was felt was due to his cocaine use. He was discharged, and did not have any follow -up. He has known diabetes, but has not been taking his medication. He hasn't been to the emergency room a couple times, and had hyperglycemia, and that decubitus. There was a wound culture done that had MRSA, and enterococcus. On both times he signed out against advice. He came back this time for the same problem and was found to have hyperglycemia and infected wounds. Surgery saw the patient, and did debridement, and he currently has a wound VAC in his his right buttock wound. Culture grew mixed Enteric bacteria as well as MRSA and enterococcus. Patient has not been febrile. His WBC is normal. Infectious disease consultation has been requested to evaluate the patient. Review of Systems Constitutional: COMPLAINS OF: Fatigue, DENIES: Fever, Chills Eyes: DENIES: Eye pain Ears, nose, mouth, throat: DENIES: Nasal discharge, Oral lesions, Ear Pain, Running Nose Respiratory: DENIES: Cough, Shortness of breath Cardiovascular: DENIES: Chest pain, Palpitations, Syncope Gastrointestinal: DENIES: Abdominal pain, Diarrhea, Nausea, Vomiting Genitourinary: DENIES: Dysuria Musculoskeletal: DENIES: Joint pain, Neck pain Integumentary: DENIES: Rash Neurologic: DENIES: Headache Psychiatric: DENIES: Hallucinations Past Family Social History Allergies: Coded Allergies: *MDRO Multi-Drug Resistant Organism (Verified Adverse Reaction, Unknown, ) MRSA PCR Screen 10/16/16 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, 10/15/16 Past Medical History PEA arrest - 09/16/16 Cardiomyopathy Acute systolic CHF - EF 35-40%, mod-severe MR, Mild TR HTN Diabetes Hepatitis C Cocaine use Past Surgical History Hernia repair Active Ordered Medications Tylenol Norvasc ASA Dulcolax Coreg Vasotec Heparin Dilaudid Insulin Lactulose Ativan MOM MVI Zofran Oxycodone Zosyn Pericolace Senokot Vancomycin Family History Non-contributory to current ID problem Social History Patient is homeless. Uses cocaine. Denies any alcohol or tobacco use Physical Exam Vital Signs Vital Signs Date Time Temp Pulse Resp B/P Pulse Ox O2 Delivery O2 Flow Rate FiO2 10/19/16 08:00 96.7 70 18 118/68 96 10/19/16 00:00 98.8 73 20 121/79 97 10/18/16 20:00 98.7 73 20 126/80 98 10/18/16 16:00 98.8 77 17 119/65 96 10/18/16 12:00 97.6 67 17 100/58 94 Physical Exam GENERAL: Patient is a thin, well-developed male, awake and alert, not in respiratory distress. SKIN: Warm and dry. No generalized rash, no ecchymoses and no evidence of embolic lesions. HEAD: Atraumatic. Normocephalic. No temporal wasting, or tenderness. EYES: [place] conjunctiva. No petechia or hemorrhage. Pupils equal, round and reactive to light. Extraocular movements full and intact. No scleral icterus. No injection or drainage. EARS, NOSE AND THROAT: Nose without bleeding or purulent nasal discharge. No sinus tenderness. Mucous membranes pink and moist. No oral lesions noted. No exudate. No oral thrush. NECK: Trachea midline. Supple and not tender, no meningeal signs CARDIOVASCULAR: Regular rate and rhythm. No murmurs, rubs or gallops heard RESPIRATORY: Clear to auscultation. Breath sounds equal bilaterally. No rales , wheezing or rhonchi ABDOMEN: Soft, non-tender, nondistended. Bowel sounds present and normoactive. No guarding. No rebound. No organomegaly. BACK: There is a wound vac in his R buttock, and there is surrounding induration around the sponge covered wound, drainage in tubing is a dark red color EXTREMITIES: No clubbing, cyanosis, or edema. No joint effusion, has good ROM. No calf tenderness. Well perfused and warm. NEUROLOGICAL: Awake and alert. Cranial nerves grossly intact. Motor grossly within normal limits. PSYCHIATRIC: Normal affect, calm and cooperative. LINE: No evidence of infection Laboratory Laboratory Tests Test 10/18/16 10/19/16 14:26 04:10 Random Glucose 368 53 White Blood Count 8.9 Red Blood Count 5.30 Hemoglobin 13.6 Hematocrit 42.0 Mean Corpuscular Volume 79.2 Mean Corpuscular Hemoglobin 25.6 Mean Corpuscular Hemoglobin 32.3 Concent Red Cell Distribution Width 13.4 Platelet Count 281 Mean Platelet Volume 9.4 Neutrophils (%) (Auto) 45.0 Lymphocytes (%) (Auto) 36.3 Monocytes (%) (Auto) 14.6 Eosinophils (%) (Auto) 3.5 Basophils (%) (Auto) 0.6 Neutrophils # (Auto) 4.0 Lymphocytes # (Auto) 3.2 Monocytes # (Auto) 1.3 Eosinophils # (Auto) 0.3 Basophils # (Auto) 0.1 CBC Comment DIFF FINAL Differential Comment Sodium Level 134 Potassium Level 3.6 Chloride Level 98 Carbon Dioxide Level 28.5 Anion Gap 8 Blood Urea Nitrogen 17 Creatinine 0.95 Estimat Glomerular Filtration 101 Rate Calcium Level 8.7 Total Bilirubin 0.5 Aspartate Amino Transf 50 (AST/SGOT) Alanine Aminotransferase 75 (ALT/SGPT) Alkaline Phosphatase 145 Total Protein 7.1 Albumin 2.4 Date/Time Procedure Status Source Growth 10/15/16 18:00 Gram Stain - Final Complete Wound Buttock 10/15/16 18:00 Wound Culture - Final Complete S. Aureus Mrsa 10/15/16 15:20 Aerobic Blood Culture - Preliminary Resulted Blood Peripheral NO GROWTH IN 3 DAYS 10/15/16 15:20 Anaerobic Blood Culture - Preliminary Resulted Blood Peripheral NO GROWTH IN 3 DAYS Result Diagram: 10/19/16 0410 10/19/16 0410 Imaging RADIOLOGY STUDIES/FILMS REVIEWED Sacrum and Coccyx X-Ray 10/16/16 0000 Signed Impressions: Service Date/Time: September 17:51 - CONCLUSION: Subcutaneous emphysema in this patient with decubitus ulcer. Osseous structures are intact. No definite plain radiographic evidence of osteomyelitis. Gerson Clayton MD Ankle X-Ray 10/16/16 0000 Signed Impressions: Service Date/Time: September 17:45 - CONCLUSION: No acute disease. Gerson Clayton MD Assessment and Plan Assessment and Plan IMPRESSION Infected R buttock decubitus S/P debridement - C/S polymicrobial as expected - GNR, Enterococcus and MRSA DM, poorly controlled Known IVDU Poor medical compliance Homelessness RECOMMENDATION Continue IV Vancomycin Change Zosyn to Cipro and Flagyl I will try to examine wound with next wound vac change and make further recommendation on courase of his Abx I anticipate that he will be give oral Abx on D/C - will ask CM assistance in getting his meds (likely Zyvox, Cipro and Flagyl ) when he is close to D/C - Cipro is free at [facility] I will follow along with you Thank you for this consultation Addendum: Received call from micro. 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 Will start Zyvox and stop Vanco. Follow CBC Discussed Condition With D/W Concepcion Akins MD Oct 19, 2016 09:09
--- NOTE | 2016-10-19 10:10 | HHI.FPPN ---
Subjective Remarks Patient was seen and evaluated this morning. He states that he feels well. He denies chest and abdominal pain, heart palpitations, shortness of breath, nausea /vomiting, diarrhea and constipation. He is requesting food; says that he is hungry. Patient endorses pain in right buttocks but says that the pain is much improved. In fact, patent is able to lay flat on his back, putting some pressure on right side. Patient was introduced to new family medicine team; Drs. Haritha Soriano and Carmina examined patient. Objective Vitals Vital Signs Date Time Temp Pulse Resp B/P Pulse Ox O2 Delivery O2 Flow Rate FiO2 10/19/16 08:00 96.7 70 18 118/68 96 10/19/16 00:00 98.8 73 20 121/79 97 10/18/16 20:00 98.7 73 20 126/80 98 10/18/16 16:00 98.8 77 17 119/65 96 10/18/16 12:00 97.6 67 17 100/58 94 I/O 10/18/16 10/18/16 10/18/16 10/19/16 10/19/16 10/19/16 06:59 14:59 22:59 06:59 14:59 22:59 Intake Total 240 ml 540 ml Output Total 1100 ml 1250 ml 900 ml 500 ml Balance -860 ml -710 ml -900 ml -500 ml Intake Oral 240 ml 540 ml Output Urine Total 1100 ml 1075 ml 900 ml 500 ml Drainage Total 175 ml # Bowel Movements 1 0 0 Result Diagram: 10/19/16 0410 10/19/16 0410 Imaging Last Impressions Sacrum and Coccyx X-Ray 10/16/16 0000 Signed Impressions: Service Date/Time: September 17:51 - CONCLUSION: Subcutaneous emphysema in this patient with decubitus ulcer. Osseous structures are intact. No definite plain radiographic evidence of osteomyelitis. Gerson Clayton MD Ankle X-Ray 10/16/16 0000 Signed Impressions: Service Date/Time: September 17:45 - CONCLUSION: No acute disease. Gerson Clayton MD Objective Remarks GENERAL: This is a well-nourished, well-developed patient, in no apparent distress. Lying supine in hospital bed. SKIN: Cool and dry. Decubitus ulcer on right buttocks currently with wound vac in place, draining serosanguinous fluid. Continuous small volume drainage into wound vac. Lesion on left heel is healing appropriately. HEAD: Atraumatic. Normocephalic. No temporal or scalp tenderness. EYES: Pupils equal round. Some scleral icterus. ENT: Nose without bleeding, purulent drainage or septal hematoma. Airway patent. NECK: Trachea midline. No JVD or lymphadenopathy. Supple, nontender. CARDIOVASCULAR: Regular rate with 2/6 TRICIA. RESPIRATORY: Clear to auscultation. Breath sounds equal bilaterally. GASTROINTESTINAL: Abdomen soft, non-tender, nondistended. No guarding. Positive bowel sounds. MUSCULOSKELETAL: Extremities without clubbing, cyanosis, or edema. No joint tenderness, effusion, edema noted. No calf tenderness. Left foot wrapped in EDUIN bandage. NEUROLOGICAL: Alert and oriented x3. lumber checker grossly intact. Speech normal. Procedures Debridement of right buttocks ulcer at bedside 10/[address] Palmer. Medications and IVs Current Medications Medications (Trade) Dose Ordered Sig/Joshua Route Start Time Stop Time Status Last Admin (NS Flush) 2 ml UNSCH PRN IV FLUSH 10/15/16 17:45 (NS Flush) 2 ml BID IV FLUSH 10/15/16 21:00 10/19/16 08:55 (Heparin Inj) 5,000 units Q12H SQ 10/15/16 20:00 10/18/16 22:51 (Narcan Inj) 0.4 mg UNSCH PRN IV 10/15/16 17:45 (Rula-Colace) 1 tab BID PO 10/15/16 21:00 10/18/16 22:51 (Milk Of Magnesia Liq) 30 ml Q12H PRN PO 10/15/16 17:45 (Senokot) 17.2 mg Q12H PRN PO 10/15/16 17:45 (Dulcolax Supp) 10 mg DAILY PRN RECTAL 10/15/16 17:45 (Lactulose Liq) 30 ml DAILY PRN PO 10/15/16 17:45 Miscellaneous Information 1 Q361D XX 10/15/16 17:45 10/15/16 17:45 (Chlorhexidine 2% Cloth) 3 pack Taper DAILY@04 TOP 10/16/16 04:00 10/12/17 03:59 10/16/16 20:24 (Chlorhexidine 2% Cloth) 3 pack UNSCH PRN TOP 10/15/16 17:45 (Romazicon Inj) 0.2 mg Q1M PRN IV PUSH 10/15/16 18:00 (Ativan) 1 mg Q4H PRN PO 10/15/16 18:00 (Ativan Inj) 1 mg Q4H PRN IV PUSH 10/15/16 18:00 (Ativan) 2 mg Q2H PRN PO 10/15/16 18:00 (Ativan Inj) 2 mg Q2H PRN IV PUSH 10/15/16 18:00 (Ativan Inj) 2 mg Q1H PRN IV PUSH 10/15/16 18:00 Lorazepam 2 mg 2 mg Q15M PRN IV PUSH 10/15/16 18:00 Pharmacy Profile Note 0 ml @ 0 mls/hr UNSCH OTHER 10/15/16 18:30 (Zosyn 3.375 Gm Premix) 50 ml @ 100 mls/hr Q6H IV 10/15/16 20:00 10/19/16 08:55 (D50w (Vial) Inj) 50 ml UNSCH PRN IV 10/16/16 07:30 (Glucagon Inj) 1 mg UNSCH PRN OTHER 10/16/16 07:30 (Norvasc) 5 mg DAILY PO 10/16/16 09:00 10/19/16 08:54 (Aspirin Chew) 81 mg DAILY PO 10/16/16 09:00 10/19/16 08:54 (Coreg) 6.25 mg Q12HR PO 10/16/16 09:00 10/19/16 08:54 (Vasotec Inj) 1.25 mg Q6H PRN IV 10/16/16 15:00 (Dakin'S 0.125% Soln) 500 ml BID TOPICAL 10/16/16 15:00 10/16/16 20:24 (Tylenol) 650 mg Q6H PRN PO 10/17/16 09:30 (Roxicodone) 10 mg Q4H PRN PO 10/17/16 09:45 10/19/16 01:06 (Dilaudid Pf Inj) 1 mg Q3H PRN IV 10/17/16 09:30 (Roxicodone) 5 mg Q4H PRN PO 10/17/16 09:30 (Zofran Inj) 4 mg Q6HR PRN IV PUSH 10/17/16 09:30 Multivitamins 1 tab 1 tab DAILY PO 10/18/16 09:15 10/19/16 08:55 (Vancomycin Inj/ NS 250 ml Inj) 250 ml @ 250 mls/hr Q12H IV 10/18/16 16:00 10/19/16 03:52 Miscellaneous Information SPECIFIC LAB TO BE DRAWN:PHARM... ONCE ONCE .XX 10/20/16 03:45 10/20/16 03:46 (Levemir Inj) 13 units BIDAC SQ 10/18/16 21:00 10/18/16 23:08 Urinary Catheter: No Vascular Central Line Catheter: No A/P Assessment and Plan 51-year-old male with history of poorly controlled diabetes admitted for hyperglycemia crisis (HHS) and extensive right buttock wound which is being surgically managed. Discharge Planning Unclear at this time. His hyperglycemia is being managed and is stable. His right buttock wound is actively being managed and he is status post debridement on 10/17 with persistent wound VAC. Infection treated with IV antibiotics at this time; wound is MRSA and Group D Enterocoocus positive. Problem List: (1) Hyperglycemia Status: Acute Plan: Serum glucose overnight was 53; recent bedside glucose was 160. Hemoglobin A1C is 13.8H. He has required 27 units of NovoLog over the last 24 hours * Increased Levemir dose from 10 units BID to 13 units BIDAC as he has continued to require significant supplemental NovoLog; change made 10/18/16. * Continue NovoLog Supplemental Scale low-dose. Etiology: * Medication non-compliance * Aggravated by infection of decubitus ulcer on right buttocks Hospital Course: At admission: * Random glucose 851; repeat random glucose 408 * B-Hydroxybutyrate 0.60H * Urine Glucose 1000H * ABG normal Management: * Received 7 units of NovoLIN IV Push in ED. * Received Sodium Chloride 1,000 ml @ 999 mls/hr bolus IV x3 in ED. * Started on insulin drip. * Ordered NovoLOG Supplemental Scale. * Started NS @ 125 mls/hr q8h IV - discontinued when blood glucose <250. * Transition to D5NS @ 200 mls/hr, now on diabetic diet with IVF discontinued. * Monitored blood glucose q1h and BMP every 3. * Beta hydroxybutyrate normalized on repeat * Patient has been alert and oriented throughout hospital stay aside from mild sedation at admission (2) Infected decubitus ulcer Status: Acute Plan: Status post bedside debridement 10/[address] Palmer, which patient tolerated well. Consulted Infectious Disease to follow patient course, as patient wound is growing MRSA and Group D Enteroccocus. ID Recommendations: * Continue IV Vancomycin. * Change Zosyn to Cipro and Flagyl. * ID will try to examine wound with next wound vac change and make further recommendation on course of antibiotics. * ID anticipates that patient will be given oral antibiotics on D/C Will ask CM assistance in getting his meds (likely Zyvox, Cipro and Flagyl ) when he is close to D/C Cipro is free at [facility] sous chef recommended debridement wound. Made following recommendations: * Please cleanse wound to R buttock with normal saline apply dakin's 0.125% moistened gauze loosely packed into wound bed cover with dry 4x4 gauze pads and ABD pad, Apply skin prep to periwound before securing dressing with tape. Change BID until seen by surgeon. Etiology: * Possibly prolonged immobilization * Poor healing due to uncontrolled blood sugar; HgbA1C 13.8 Hospital course: Admitted for [facility] and noted to have extensive clinically infected decubitus ulcer Osteomyelitis work-up negative: * X-Ray Sacrum and Coccyx shows evidence of subcutaneous emphysema. Osseous structures are intact. No definite plain radiographic evidence of osteomyelitis. * WBC wnl * ESR 18 * CRP 0.44H During last admission, decator operator recommended plastic sx consult. However, there wasn't any plastic surgery physician or wound care physician available. was consulted but declined the consult due to location of wound. Wound culture grew MRSA and enterococcus faecalis. Patient was treated with Vancomycin and Zosyn. Left AMA. Has not been on antibiotics or received wound care management. * Started on Vancomycin with [facility] pharmacy consult (10/15-current) * Zosyn 4.5 g q6h IV (10/15- 10/19) * Wound culture 10/15 -MRSA, Group D Enterococcus * Blood culture Final-no growth in 3 days * Consulted wound management. (3) Foot lesion Status: Acute Plan: Healing appropriately. sous chef made following recommendations: * Please cleanse wound to L heel with normal saline or wound cleanser and apply Xeroform gauze dressing just over wound bed cover with dry 4x4 gauze pads and secure with rolled gauze and tape. Change dressing every other day or PRN if saturated or dislodged. Hospital Course: Osteomyelitis work-up: * X-Ray Ankle shows no acute disease. * WBC wnl * ESR 18 * CRP 0.44H (4) Acute kidney insufficiency Status: Resolved Plan: Normalized. Etiology: * Possible dehydration. Hospital Course: At last admissions, BUN/Cr were initially elevated but quickly normalized following fluid administration. * Received Sodium Chloride 1,000 ml @ 999 mls/hr bolus IV x3 in ED. * Started Sodium Chloride 1,000 ml @ 125 mls/hr q8h IV - discontinued when blood glucose <250. * Now on Dextrose/Sodium Chloride 1,000 ml @ 200 mls/hr q5h IV. * Monitor fluid administration closely - patient has CHF; consider Lasix if fluid overload is suspected. (5) Hyponatremia Status: Acute Plan: Sodium today is 134. Continue to monitor closely Etiology: * Hyperglycemia Hospital Course: At admission, Na 119, corrected 131; repeat Na 131. Monitor closely. (6) Hyperkalemia Status: Resolved Plan: Normalized. Etiology: * Hyperglycemia Hospital Course: At admission, K 5.5; repeat K 5.2. Monitor closely. * Potassium Chloride 100 ml @ 100 mls/hr q1h PRN IV on board. (7) Cocaine abuse Status: Chronic Plan: Patient now alert and oriented x3. Hx of cocaine use. At admission, Urine Cocaine Screen positive. Patient altered. Monitor closely. CIWA protocol as precaution. (8) CHF (congestive heart failure) Status: Chronic Plan: PEA arrest on 09/16/16. Hx of CHF and cardiomyopathy. * Troponin x3 negative. * CKMB x 2 wnl. * Serial EKGs with no evidence of acute ischemia * BNP 146H. (9) Fluid, Electrolyte, Nutrition, and Prophylaxis Status: Acute Plan: Fluid: * Tolerating PO. Electrolyte: * Monitor and replete if necessary. * See hyponatremia. * See hyperkalemia. Nutrition: * Diet 1999 ADA Consistent Carb * Nutrition consulted, appreciate recs: Recommended continue current diet and add Tim 2 packs per day in addition to daily MVI * Pre-albumin 10L. DVT Prophylaxis: * Heparin 5,000 units q12h SQ GI Prophylaxis: * Not indicated at this time. Problem Qualifiers (1) Infected decubitus ulcer: Qualified Code: L89.95 - Infected decubitus ulcer, unstageable Dipti Harvey MD R1 Oct 19, 2016 10:10
[2016-10-19 12:00] VITALS: BP 117/71; PULSE 65; RESP 19; TEMP 97.7; O2SAT 96
[2016-10-19] MEDS: metroNIDAZOLE 500 MG TAB PO SCH ×2 (12:33→21:43)
[2016-10-19] MEDS: CIPROFLOXACIN 750 MG TAB PO SCH ×2 (12:43→21:51)
[2016-10-19 16:00] VITALS: BP 116/79; PULSE 66; RESP 17; TEMP 98.4; O2SAT 97
[2016-10-19] MEDS: LINEZOLID 600 MG PREMIX 300 ML IV SCH (17:23)
[2016-10-19 20:00] VITALS: BP 128/67; PULSE 75; RESP 18; TEMP 97.8; O2SAT 96
[2016-10-20] VITALS: BP 134/86; PULSE 69; RESP 18; TEMP 98.3; O2SAT 98
[2016-10-20] MEDS ORDERED: PHARMACY ORDERED LAB ONE (03:45)
[2016-10-20] MEDS: CHLORHEXIDINE GLUCONATE 2 % 1 PACK (2 CLOTHS) TOP SCH (04:00)
[2016-10-20] MEDS: LINEZOLID 600 MG PREMIX 300 ML IV SCH ×2 (05:22→16:24)
[2016-10-20] MEDS: metroNIDAZOLE 500 MG TAB PO SCH ×3 (05:22→21:28)
[2016-10-20] MEDS: HYDROmorphone HCL PF 1 MG/ML VIAL IV PRN (05:23)
[2016-10-20] MEDS: INSULIN DETEMIR 100 UNITS/ML VIAL SQ SCH ×2 (07:00→16:23)
[2016-10-20 07:22] LABS: AUTOMATED NEUTROPHIL # 3.3 TH/MM3 (1.8-7.7); BASOPHIL % 0.5 % (0.0-2.0); EOSINOPHIL # 0.2 TH/MM3 (0-0.4); HEMATOCRIT 38.7 % (39.0-51.0); HEMO FLAGS DIFF FINAL; LYMPH % 31.3 % (9.0-44.0); MEAN CELL VOLUME 79.5 FL (80.0-100.0); MEAN CORPUSCULAR HEMOGLOBIN 25.8 PG (27.0-34.0); MEAN CORPUSCULAR HGB CONC 32.5 % (32.0-36.0); NEUT % 53.2 % (16.0-70.0); PLATELET COUNT 267 TH/MM3 (150-450); RED BLOOD COUNT 4.87 MIL/MM3 (4.50-5.90); RED CELL DISTRIBUTION WIDTH 13.9 % (11.6-17.2); WHITE BLOOD COUNT 6.3 TH/MM3 (4.0-11.0)
[2016-10-20] MEDS: INSULIN ASPART SUPPLEMENTAL SCALE SQ SCH ×4 (07:36→22:04)
[2016-10-20 07:42] LABS: ALKALINE PHOSPHATASE 124 U/L (45-117); ALT (GPT) 74 U/L (12-78); ANION GAP 4 MEQ/L (5-15); AST (GOT) 67 U/L (15-37); BICARBONATE 29.4 MEQ/L (21.0-32.0); BLOOD UREA NITROGEN 15 MG/DL (7-18); CHLORIDE 93 MEQ/L (98-107); GLOMERULAR FILTRATION RATE 106 ML/MIN (>89); SODIUM (NA) 126 MEQ/L (136-145); TOTAL BILIRUBIN ADULT 0.5 MG/DL (0.2-1.0)
[2016-10-20 07:56] LABS: POTASSIUM 5.2 MEQ/L (3.5-5.1)
[2016-10-20 08:00] VITALS: BP 121/55; PULSE 61; RESP 20; TEMP 97.1; O2SAT 95
[2016-10-20] MEDS: MULTIVITAMIN TAB PO SCH (08:18)
[2016-10-20] MEDS: amLODIPine BESYLATE 5 MG TAB PO SCH (08:18)
[2016-10-20] MEDS: ASPIRIN 81 MG CHEW TAB PO SCH (08:18)
[2016-10-20] MEDS: DOCUSATE SODIUM 50 MG/SENNA 8.6 MG TAB PO SCH ×2 (08:18→21:00)
[2016-10-20] MEDS: CARVEDILOL 6.25 MG TAB PO SCH ×2 (08:19→21:27)
[2016-10-20] MEDS: HEPARIN SODIUM - SQ 10,000 UNITS/ML VIAL SQ SCH ×2 (08:20→21:27)
[2016-10-20] MEDS: SODIUM CHLORIDE 0.9% FLUSH 10 ML FLUSH IV FLUSH SCH ×2 (09:00→21:27)
[2016-10-20] MEDS: SODIUM HYPOCHLORITE 0.125% 500 ML BTL TOPICAL SCH (09:00)
[2016-10-20 12:00] VITALS: BP 152/95; PULSE 52; RESP 18; TEMP 97.3; O2SAT 97
[2016-10-20] MEDS: LIPASE/PROTEASE/AMYLASE (6,000/19,000/30,000) CAP PO SCH ×2 (13:00→16:55)
[2016-10-20] MEDS: CIPROFLOXACIN 750 MG TAB PO SCH ×2 (13:38→23:41)
--- NOTE | 2016-10-20 13:57 | HHI.FPPN ---
Subjective Remarks Patient seen and examined this morning. Afebrile vital signs stable. Patient reports that he is doing well and that his pain is tolerable. Wound VAC is still in place and draining. Endorses: None Denies: Fever, chills, nausea, vomiting, shortness of breath, chest pain, headache, abdominal pain, calf pain (Isacc Hurtado MD R2) Objective Vitals Vital Signs Date Time Temp Pulse Resp B/P Pulse Ox O2 Delivery O2 Flow Rate FiO2 10/20/16 12:00 97.3 52 18 152/95 97 10/20/16 08:00 97.1 61 20 121/55 95 10/20/16 00:00 98.3 69 18 134/86 98 10/19/16 20:00 97.8 75 18 128/67 96 10/19/16 16:00 98.4 66 17 116/79 97 I/O 10/19/16 10/19/16 10/19/16 10/20/16 10/20/16 10/20/16 07:00 15:00 23:00 07:00 15:00 23:00 Intake Total 750 ml 600 ml 120 ml Output Total 500 ml 425 ml 1525 ml Balance -500 ml 325 ml -925 ml 120 ml Intake Oral 700 ml 120 ml IV Total 50 ml 600 ml Output Urine Total 500 ml 325 ml 1525 ml Drainage Total 100 ml # Voids 2 0 # Bowel Movements 0 2 0 (Isacc Hurtado MD R2) Result Diagram: 10/20/16 0550 10/20/16 0550 Imaging Last Impressions Sacrum and Coccyx X-Ray 10/16/16 0000 Signed Impressions: Service Date/Time: September 17:51 - CONCLUSION: Subcutaneous emphysema in this patient with decubitus ulcer. Osseous structures are intact. No definite plain radiographic evidence of osteomyelitis. Gerson Clayton MD Ankle X-Ray 10/16/16 0000 Signed Impressions: Service Date/Time: September 17:45 - CONCLUSION: No acute disease. Gerson Clayton MD Objective Remarks GENERAL: This is a well-nourished, well-developed patient, in no apparent distress. Lying supine in hospital bed. SKIN: Cool and dry. Decubitus ulcer on right buttocks currently with wound vac in place, draining serosanguinous fluid. Continuous small volume drainage into wound vac. Lesion on left heel is healing appropriately. HEAD: Atraumatic. Normocephalic. No temporal or scalp tenderness. EYES: Pupils equal round. Some scleral icterus. ENT: Nose without bleeding, purulent drainage or septal hematoma. Airway patent. NECK: Trachea midline. No JVD or lymphadenopathy. Supple, nontender. CARDIOVASCULAR: Regular rate with 2/6 TRICIA. RESPIRATORY: Clear to auscultation. Breath sounds equal bilaterally. GASTROINTESTINAL: Abdomen soft, non-tender, nondistended. No guarding. Positive bowel sounds. MUSCULOSKELETAL: Extremities without clubbing, cyanosis, or edema. No joint tenderness, effusion, edema noted. No calf tenderness. Left foot wrapped in EDUIN bandage. NEUROLOGICAL: Alert and oriented x3. azure architect grossly intact. Speech normal. Procedures Debridement of right buttocks ulcer at bedside 10/[address] Palmer. Medications and IVs Current Medications Medications (Trade) Dose Ordered Sig/Joshua Route Start Time Stop Time Status Last Admin (NS Flush) 2 ml UNSCH PRN IV FLUSH 10/15/16 17:45 (NS Flush) 2 ml BID IV FLUSH 10/15/16 21:00 10/20/16 09:00 (Heparin Inj) 5,000 units Q12H SQ 10/15/16 20:00 10/20/16 08:20 (Narcan Inj) 0.4 mg UNSCH PRN IV 10/15/16 17:45 (Rula-Colace) 1 tab BID PO 10/15/16 21:00 10/19/16 21:43 (Milk Of Magnesia Liq) 30 ml Q12H PRN PO 10/15/16 17:45 (Senokot) 17.2 mg Q12H PRN PO 10/15/16 17:45 (Dulcolax Supp) 10 mg DAILY PRN RECTAL 10/15/16 17:45 (Lactulose Liq) 30 ml DAILY PRN PO 10/15/16 17:45 Miscellaneous Information 1 Q361D XX 10/15/16 17:45 10/15/16 17:45 (Chlorhexidine 2% Cloth) 3 pack Taper DAILY@04 TOP 10/16/16 04:00 10/12/17 03:59 10/16/16 20:24 (Chlorhexidine 2% Cloth) 3 pack UNSCH PRN TOP 10/15/16 17:45 (Romazicon Inj) 0.2 mg Q1M PRN IV PUSH 10/15/16 18:00 (Ativan) 1 mg Q4H PRN PO 10/15/16 18:00 (Ativan Inj) 1 mg Q4H PRN IV PUSH 10/15/16 18:00 (Ativan) 2 mg Q2H PRN PO 10/15/16 18:00 (Ativan Inj) 2 mg Q2H PRN IV PUSH 10/15/16 18:00 (Ativan Inj) 2 mg Q1H PRN IV PUSH 10/15/16 18:00 (Ativan Inj) 2 mg Q15M PRN IV PUSH 10/15/16 18:00 (D50w (Vial) Inj) 50 ml UNSCH PRN IV 10/16/16 07:30 (Glucagon Inj) 1 mg UNSCH PRN OTHER 10/16/16 07:30 (Norvasc) 5 mg DAILY PO 10/16/16 09:00 10/20/16 08:18 (Aspirin Chew) 81 mg DAILY PO 10/16/16 09:00 10/20/16 08:18 (Coreg) 6.25 mg Q12HR PO 10/16/16 09:00 10/20/16 08:19 (Vasotec Inj) 1.25 mg Q6H PRN IV 10/16/16 15:00 (Dakin'S 0.125% Soln) 500 ml BID TOPICAL 10/16/16 15:00 10/16/16 20:24 (Tylenol) 650 mg Q6H PRN PO 10/17/16 09:30 (Roxicodone) 10 mg Q4H PRN PO 10/17/16 09:45 10/20/16 00:23 (Dilaudid Pf Inj) 1 mg Q3H PRN IV 10/17/16 09:30 10/20/16 05:23 (Roxicodone) 5 mg Q4H PRN PO 10/17/16 09:30 (Zofran Inj) 4 mg Q6HR PRN IV PUSH 10/17/16 09:30 (Theragran) 1 tab DAILY PO 10/18/16 09:15 10/20/16 08:18 (Levemir Inj) 13 units BIDAC SQ 10/18/16 21:00 10/20/16 07:00 (Cipro) 750 mg Q12H PO 10/19/16 11:00 10/20/16 13:38 Metronidazole 500 mg 500 mg Q8HR PO 10/19/16 14:00 10/20/16 13:38 (Zyvox 600 Mg Premix) 300 ml @ 300 mls/hr Q12H IV 10/19/16 17:00 10/20/16 05:22 (Reglan) 10 mg ACHS PO 10/20/16 16:00 (Creon 6-19-30) 1 cap TID PO 10/20/16 13:00 (Isacc Hurtado MD R2) A/P Assessment and Plan 51-year-old male with history of poorly controlled diabetes admitted for hyperglycemia crisis (HHS) and extensive right buttock wound which is being surgically managed. Discharge Planning Unclear at this time. His hyperglycemia is being managed and is stable. His right buttock wound is actively being managed and he is status post debridement on 10/17 with persistent wound VAC. Infection treated with IV antibiotics at this time; wound is MRSA and Group D Enterocoocus positive. (Isacc Hurtado MD R2) Attending Attestation Patients case was dicussed in detail with resident medical team,examination performed, EMR reviewed, agree with Admission, Assessment and Plan, See Orders. (Jd Villa MD) Problem List: (1) Hyperglycemia Status: Acute Plan: Serum glucose overnight was 53; recent bedside glucose was 160. Hemoglobin A1C is 13.8H. He has required 27 units of NovoLog over the last 24 hours * Continue Levemir 13 units BIDAC * Continue NovoLog Supplemental Scale low-dose. Etiology: * Medication non-compliance * Aggravated by infection of decubitus ulcer on right buttocks Hospital Course: At admission: * Random glucose 851; repeat random glucose 408 * B-Hydroxybutyrate 0.60H * Urine Glucose 1000H * ABG normal Management: * Received 7 units of NovoLIN IV Push in ED. * Received Sodium Chloride 1,000 ml @ 999 mls/hr bolus IV x3 in ED. * Started on insulin drip. * Ordered NovoLOG Supplemental Scale. * Started NS @ 125 mls/hr q8h IV - discontinued when blood glucose <250. * Transition to D5NS @ 200 mls/hr, now on diabetic diet with IVF discontinued. * Monitored blood glucose q1h and BMP every 3. * Beta hydroxybutyrate normalized on repeat * Patient has been alert and oriented throughout hospital stay aside from mild sedation at admission (2) Infected decubitus ulcer Status: Acute Plan: Status post bedside debridement 10/[address] Palmer, which patient tolerated well. Consulted Infectious Disease to follow patient course, as patient wound is growing MRSA and Group D Enteroccocus. ID Recommendations: * Continue IV Vancomycin (10/15current). * Continue Cipro and Flagyl. * ID will try to examine wound with next wound vac change and make further recommendation on course of antibiotics. * ID anticipates that patient will be given oral antibiotics on D/C Will ask CM assistance in getting his meds (likely Zyvox, Cipro and Flagyl ) when he is close to D/C * Blood culture Final-no growth in 3 days * Consulted wound management. (3) Foot lesion Status: Acute Plan: Healing appropriately. ocular pathologist made following recommendations: * Please cleanse wound to L heel with normal saline or wound cleanser and apply Xeroform gauze dressing just over wound bed cover with dry 4x4 gauze pads and secure with rolled gauze and tape. Change dressing every other day or PRN if saturated or dislodged. (4) Acute kidney insufficiency Status: Resolved Plan: Normalized. Taking in adequate oral hydration Etiology: * Possible dehydration. (5) Hyponatremia Status: Acute Plan: Sodium today is 126. Continue to monitor closely Etiology: * Hyperglycemia (6) Hyperkalemia Status: Resolved Plan: Elevated at 5.2 currently slightly hemolyzed, normal range high as 5.1 Etiology: * Hyperglycemia Hospital Course: At admission, K 5.5; repeat K 5.2. Monitor closely. (7) Cocaine abuse Status: Chronic Plan: Patient now alert and oriented x3. Hx of cocaine use. At admission, Urine Cocaine Screen positive. Patient altered. Monitor closely. [place] protocol as precaution. (8) CHF (congestive heart failure) Status: Chronic Plan: PEA arrest on 09/16/16. Hx of CHF and cardiomyopathy. * Troponin x3 negative. * CKMB x 2 wnl. * Serial EKGs with no evidence of acute ischemia * BNP 146H. (9) Fluid, Electrolyte, Nutrition, and Prophylaxis Status: Acute Plan: Fluid: * Tolerating PO. Electrolyte: * Monitor and replete if necessary. * See hyponatremia. * See hyperkalemia. Nutrition: * Diet 1999 ADA Consistent Carb * Nutrition consulted, appreciate recs: Recommended continue current diet and add Tim 2 packs per day in addition to daily MVI * Pre-albumin 10L. DVT Prophylaxis: * Heparin 5,000 units q12h SQ GI Prophylaxis: * Not indicated at this time. (Isacc Hurtado MD R2) Problem Qualifiers (1) Infected decubitus ulcer: Qualified Code: L89.95 - Infected decubitus ulcer, unstageable Isacc Hurtado MD R2 Oct 20, 2016 13:57 Jd Villa MD Oct 20, 2016 18:38
--- NOTE | 2016-10-20 15:24 | HHI.PR ---
Subjective Subjective Notes Sitting on the side of the bed Wound Vac changed last night per MIRIAN Randolph Objective Vitals/I&O Vital Signs Date Time Temp Pulse Resp B/P Pulse Ox O2 Delivery O2 Flow Rate FiO2 10/20/16 12:00 97.3 52 18 152/95 97 Labs Laboratory Tests Test 10/20/16 05:50 White Blood Count 6.3 Red Blood Count 4.87 Hemoglobin 12.6 Hematocrit 38.7 Mean Corpuscular Volume 79.5 Mean Corpuscular Hemoglobin 25.8 Mean Corpuscular Hemoglobin 32.5 Concent Red Cell Distribution Width 13.9 Platelet Count 267 Mean Platelet Volume 8.9 Neutrophils (%) (Auto) 53.2 Lymphocytes (%) (Auto) 31.3 Monocytes (%) (Auto) 12.0 Eosinophils (%) (Auto) 3.0 Basophils (%) (Auto) 0.5 Neutrophils # (Auto) 3.3 Lymphocytes # (Auto) 2.0 Monocytes # (Auto) 0.8 Eosinophils # (Auto) 0.2 Basophils # (Auto) 0.0 CBC Comment DIFF FINAL Differential Comment Sodium Level 126 Potassium Level 5.2 Chloride Level 93 Carbon Dioxide Level 29.4 Anion Gap 4 Blood Urea Nitrogen 15 Creatinine 0.91 Estimat Glomerular Filtration 106 Rate Random Glucose 251 Calcium Level 8.4 Total Bilirubin 0.5 Aspartate Amino Transf 67 (AST/SGOT) Alanine Aminotransferase 74 (ALT/SGPT) Alkaline Phosphatase 124 Total Protein 6.6 Albumin 2.2 HIV (1&2) Antibody NEGATIVE Date/Time Procedure Status Source Growth 10/15/16 18:00 Gram Stain - Final Complete Wound Buttock 10/15/16 18:00 Wound Culture - Final Complete S. Aureus [facility] Last 48 hours Impressions Sacrum and Coccyx X-Ray 10/16/16 0000 Signed Impressions: Service Date/Time: September 17:51 - CONCLUSION: Subcutaneous emphysema in this patient with decubitus ulcer. Osseous structures are intact. No definite plain radiographic evidence of osteomyelitis. Gerson Clayton MD Ankle X-Ray 10/16/16 0000 Signed Impressions: Service Date/Time: September 17:45 - CONCLUSION: No acute disease. Gerson Clayton MD Cardiovascular: Regular Lungs: Clear Abdomen: Non-distended, Non-tender Extremities: Other Narrative Exam Large RIGHT gluteal wound with Wound Vac in place with low leak alarm A/P Assessment and Plan 51 year old male with multiple medical problems; large RIGHT gluteal wound s/p bedside debridement and Wound Vac placement -Plan to remove Wound Vac tomorrow -Please have supplies at bedside -If malfunctions overnight place wet to dry dressing until Surgical Team Rounds tomorrow -Regular diet -Discussed with RN Hannah Perales Oct 20, 2016 15:24
[2016-10-20 16:00] VITALS: BP 130/65; PULSE 71; RESP 19; TEMP 98; O2SAT 100
[2016-10-20] MEDS: METOCLOPRAMIDE HCL 10 MG TAB PO SCH ×2 (16:21→21:28)
[2016-10-20 20:00] VITALS: BP 112/65; PULSE 67; RESP 19; TEMP 96; O2SAT 96
[2016-10-21] VITALS: BP 104/56; PULSE 56; RESP 19; TEMP 97.7; O2SAT 97
[2016-10-21] MEDS: SODIUM HYPOCHLORITE 0.125% 500 ML BTL TOPICAL SCH ×3 (00:31→21:00)
[2016-10-21] MEDS: HYDROmorphone HCL PF 1 MG/ML VIAL IV PRN ×2 (00:31→11:54)
[2016-10-21] MEDS: CHLORHEXIDINE GLUCONATE 2 % 1 PACK (2 CLOTHS) TOP SCH (04:00)
[2016-10-21] MEDS: METOCLOPRAMIDE HCL 10 MG TAB PO SCH ×4 (05:15→21:42)
[2016-10-21] MEDS: metroNIDAZOLE 500 MG TAB PO SCH ×3 (05:15→21:42)
[2016-10-21] MEDS: LINEZOLID 600 MG PREMIX 300 ML IV SCH ×3 (05:16→17:26)
[2016-10-21] MEDS: INSULIN DETEMIR 100 UNITS/ML VIAL SQ SCH ×2 (05:25→17:31)
[2016-10-21] MEDS: INSULIN ASPART SUPPLEMENTAL SCALE SQ SCH ×4 (05:26→21:48)
[2016-10-21 07:42] LABS: HEMATOCRIT 35.4 % (39.0-51.0); MEAN CELL VOLUME 79.5 FL (80.0-100.0); MEAN CORPUSCULAR HEMOGLOBIN 25.6 PG (27.0-34.0); MEAN CORPUSCULAR HGB CONC 32.2 % (32.0-36.0); PLATELET COUNT 286 TH/MM3 (150-450); RED BLOOD COUNT 4.46 MIL/MM3 (4.50-5.90); RED CELL DISTRIBUTION WIDTH 13.7 % (11.6-17.2); REVIEW FLAG FINAL
[2016-10-21 08:00] VITALS: BP 110/64; PULSE 59; RESP 17; TEMP 96.6; O2SAT 96
[2016-10-21 08:06] LABS: BICARBONATE 29.7 MEQ/L (21.0-32.0); POTASSIUM 4.1 MEQ/L (3.5-5.1)
[2016-10-21] MEDS: ASPIRIN 81 MG CHEW TAB PO SCH (09:57)
[2016-10-21] MEDS: SODIUM CHLORIDE 0.9% FLUSH 10 ML FLUSH IV FLUSH SCH ×2 (09:57→21:00)
[2016-10-21] MEDS: amLODIPine BESYLATE 5 MG TAB PO SCH (09:58)
[2016-10-21] MEDS: MULTIVITAMIN TAB PO SCH (09:58)
[2016-10-21] MEDS: DOCUSATE SODIUM 50 MG/SENNA 8.6 MG TAB PO SCH ×2 (09:58→21:00)
[2016-10-21] MEDS: CARVEDILOL 6.25 MG TAB PO SCH ×2 (09:58→21:42)
[2016-10-21] MEDS: CIPROFLOXACIN 750 MG TAB PO SCH ×2 (09:58→21:43)
[2016-10-21] MEDS: LIPASE/PROTEASE/AMYLASE (6,000/19,000/30,000) CAP PO SCH ×3 (09:58→17:25)
[2016-10-21] MEDS: HEPARIN SODIUM - SQ 10,000 UNITS/ML VIAL SQ SCH ×2 (09:59→21:43)
--- NOTE | 2016-10-21 11:45 | HHI.FPPN ---
Subjective Remarks Pt seen and examined this morning. Patient has been afebrile. No acute events overnight. Pt reports that wound drain was removed overnight. He denies chest pain, shortness of breath, fevers, chills, abdominal pain. He is having regular bowel movements, denies constipation or diarrhea. He has no acute concerns. Objective Vitals Vital Signs Date Time Temp Pulse Resp B/P Pulse Ox O2 Delivery O2 Flow Rate FiO2 10/21/16 08:00 96.6 59 17 110/64 96 10/21/16 00:00 97.7 56 19 104/56 97 10/20/16 20:00 96.0 67 19 112/65 96 10/20/16 16:00 98.0 71 19 130/65 100 10/20/16 12:00 97.3 52 18 152/95 97 I/O 10/20/16 10/20/16 10/20/16 10/21/16 10/21/16 10/21/16 07:00 15:00 23:00 07:00 15:00 23:00 Intake Total 870 ml 860 ml 480 ml Output Total 600 ml 300 ml 250 ml Balance 270 ml 560 ml 230 ml Intake Oral 870 ml 360 ml 480 ml IV Total 500 ml 0 ml Output Urine Total 600 ml 300 ml 250 ml # Voids 0 2 # Bowel Movements 0 0 0 Result Diagram: 10/21/1665410/21/16654 Objective Remarks GENERAL: This is a well-nourished, well-developed patient, in no apparent distress. Lying supine in hospital bed. SKIN: Cool and dry. Decubitus ulcer on right buttocks currently with dressing in place, c/d/i, no significant drainage. Lesion on left heel is healing well. HEENT: Atraumatic. Normocephalic. Pupils equal round. Some scleral icterus. Nose without bleeding, purulent drainage or septal hematoma. Airway patent. NECK: Trachea midline. No JVD or lymphadenopathy. Supple, nontender. CARDIOVASCULAR: Regular rate with 2/6 TRICIA. RESPIRATORY: Clear to auscultation. Breath sounds equal bilaterally. GASTROINTESTINAL: Abdomen soft, non-tender, nondistended. No guarding. Positive bowel sounds. MUSCULOSKELETAL: Extremities without clubbing, cyanosis, or edema. No joint tenderness, effusion, edema noted. No calf tenderness. NEUROLOGICAL: Alert and oriented x3. 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 Speech normal. Procedures Debridement of right buttocks ulcer at bedside 10/[address] Palmer. A/P Assessment and Plan 51-year-old male with history of poorly controlled diabetes admitted for hyperglycemia crisis (HHS) and extensive right buttock wound which is being surgically managed. Discharge Planning Unclear at this time. His hyperglycemia is being managed and is stable. His right buttock wound is actively being managed and he is status post debridement on 10/17. Infection treated with IV antibiotics at this time; wound is MRSA and Group D Enterocoocus positive. Problem List: (1) Infected decubitus ulcer Status: Acute Plan: Status post bedside debridement 10/[address] Palmer, which patient tolerated well. Wound vac removed on 10/20, wound dressing clean, dry and intact. Consulted Infectious Disease to follow patient course, as patient wound is growing MRSA, Enteroccocus Faecalis and enterococcusfaecium VRE ID Recommendations: * Continue IV Vancomycin (10/15present). * Continue Cipro and Flagyl (10/19- present). * ID will try to examine wound with next wound vac change and make further recommendation on course of antibiotics. * ID anticipates that patient will be given oral antibiotics on D/C Will ask CM assistance in getting his meds (likely Zyvox, Cipro and Flagyl ) when he is close to D/C * Blood culture Final-no growth in 5 days * Consulted wound management. (2) Hyperglycemia Status: Acute Plan: Bedside glucose ranging from 950365 over the past 24 hours. Hemoglobin A1C is 13.8H. He has required 28 units of NovoLog over the last 24 hours * Will increase Levemir 15 units BIDAC, continue to monitor blood sugar * Continue NovoLog Supplemental Scale low-dose. Etiology: * Medication non-compliance * Aggravated by infection of decubitus ulcer on right buttocks (3) Foot lesion Status: Acute Plan: Healing appropriately, no signs of infection. (4) Hyponatremia Status: Acute Plan: Sodium today is 133. Continue to monitor closely Etiology: * Hyperglycemia (5) Cocaine abuse Status: Chronic Plan: Patient with history of cocaine abuse. Patient counseled regarding illicit substance use (6) CHF (congestive heart failure) Status: Chronic Plan: PEA arrest on 09/16/16. Hx of CHF and cardiomyopathy. -ACS rule out negative -BNP slightly elevated to 146 (7) Fluid, Electrolyte, Nutrition, and Prophylaxis Status: Acute Plan: Fluid: * Tolerating PO. Electrolyte: * Monitor and replete if necessary. * See above Nutrition: * Diet 1999 ADA Consistent Carb * Nutrition consulted, appreciate recs: Recommended continue current diet and add Tim 2 packs per day in addition to daily MVI * Pre-albumin 10L. DVT Prophylaxis: * Heparin 5,000 units q12h SQ GI Prophylaxis: * Not indicated at this time. Problem Qualifiers (1) Infected decubitus ulcer: Qualified Code: L89.95 - Infected decubitus ulcer, unstageable Jamir Soriano MD R2 Oct 21, 2016 11:45
[2016-10-21 12:00] VITALS: BP 126/71; PULSE 69; RESP 17; TEMP 97.1; O2SAT 97
[2016-10-21] MEDS ORDERED: CALCIUM CARBONATE 1.25 GM (CA 500 MG) TAB PO ONE (12:00)
--- NOTE | 2016-10-21 14:38 | HHI.IDPN ---
Subjective Subjective Remarks Patient is a 51-year-old male, presented to the hospital for further evaluation of his wounds. According to the patient he developed the wound during his hospitalization back in August. At that time he had cardiac arrest which was felt was due to his cocaine use. He was discharged, and did not have any follow -up. He has known diabetes, but has not been taking his medication. He hasn't been to the emergency room a couple times, and had hyperglycemia, and that decubitus. There was a wound culture done that had MRSA, and enterococcus. On both times he signed out against advice. He came back this time for the same problem and was found to have hyperglycemia and infected wounds. Surgery saw the patient, and did debridement, and he currently has a wound VAC in his his right buttock wound. Culture grew mixed Enteric bacteria as well as MRSA and enterococcus. Patient has not been febrile. His WBC is normal. 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 Vital Signs Date Time Temp Pulse Resp B/P Pulse Ox O2 Delivery O2 Flow Rate FiO2 10/21/16 12:00 97.1 69 17 126/71 97 10/21/16 08:00 96.6 59 17 110/64 96 10/21/16 00:00 97.7 56 19 104/56 97 10/20/16 20:00 96.0 67 19 112/65 96 10/20/16 16:00 98.0 71 19 130/65 100 10/20/16 10/20/16 10/21/16 15:00 23:00 07:00 Intake Total 870 ml 860 ml 480 ml Output Total 600 ml 300 ml 250 ml Balance 270 ml 560 ml 230 ml Intake Oral 870 ml 360 ml 480 ml IV Total 500 ml 0 ml Output Urine Total 600 ml 300 ml 250 ml # Voids 2 # Bowel Movements 0 0 0 . Laboratory Tests Test 10/20/16 10/21/16 05:50 06:55 White Blood Count 6.3 TH/MM3 6.0 TH/MM3 Red Blood Count 4.87 MIL/MM3 4.46 MIL/MM3 Hemoglobin 12.6 GM/DL 11.4 GM/DL Hematocrit 38.7 % 35.4 % Mean Corpuscular Volume 79.5 FL 79.5 FL Mean Corpuscular Hemoglobin 25.8 PG 25.6 PG Mean Corpuscular Hemoglobin 32.5 % 32.2 % Concent Red Cell Distribution Width 13.9 % 13.7 % Platelet Count 267 TH/MM3 286 TH/MM3 Mean Platelet Volume 8.9 FL 8.6 FL Neutrophils (%) (Auto) 53.2 % Lymphocytes (%) (Auto) 31.3 % Monocytes (%) (Auto) 12.0 % Eosinophils (%) (Auto) 3.0 % Basophils (%) (Auto) 0.5 % Neutrophils # (Auto) 3.3 TH/MM3 Lymphocytes # (Auto) 2.0 TH/MM3 Monocytes # (Auto) 0.8 TH/MM3 Eosinophils # (Auto) 0.2 TH/MM3 Basophils # (Auto) 0.0 TH/MM3 CBC Comment DIFF FINAL Differential Comment Laboratory Tests Test 10/20/16 10/21/16 05:50 06:55 Sodium Level 126 MEQ/L 133 MEQ/L Potassium Level 5.2 MEQ/L 4.1 MEQ/L Chloride Level 93 MEQ/L 97 MEQ/L Carbon Dioxide Level 29.4 MEQ/L 29.7 MEQ/L Anion Gap 4 MEQ/L 6 MEQ/L Blood Urea Nitrogen 15 MG/DL 15 MG/DL Creatinine 0.91 MG/DL 0.80 MG/DL Estimat Glomerular Filtration 106 ML/MIN 124 ML/MIN Rate Random Glucose 251 MG/DL 268 MG/DL Calcium Level 8.4 MG/DL 8.1 MG/DL Total Bilirubin 0.5 MG/DL Aspartate Amino Transf 67 U/L (AST/SGOT) Alanine Aminotransferase 74 U/L (ALT/SGPT) Alkaline Phosphatase 124 U/L Total Protein 6.6 GM/DL Albumin 2.2 GM/DL Imaging Sacrum and Coccyx X-Ray 10/16/16 0000 Signed Impressions: Service Date/Time: September 17:51 - CONCLUSION: Subcutaneous emphysema in this patient with decubitus ulcer. Osseous structures are intact. No definite plain radiographic evidence of osteomyelitis. Gerson Clayton MD Ankle X-Ray 10/16/16 0000 Signed Impressions: Service Date/Time: September 17:45 - CONCLUSION: No acute disease. Gerson Clayton MD Physical Exam GENERAL: awake and alert, not in respiratory distress. SKIN: Warm and dry. No generalized rash, no ecchymoses and no evidence of embolic lesions. HEAD: Atraumatic. Normocephalic. No temporal wasting, or tenderness. EYES: [place] conjunctiva. No petechia or hemorrhage. Pupils equal, round and reactive to light. No scleral icterus. No injection or drainage. EARS, NOSE AND THROAT: Nose without bleeding or purulent nasal discharge. Mucous membranes pink and moist. No oral lesions noted. NECK: Trachea midline. Supple and not tender, no meningeal signs CARDIOVASCULAR: Regular rate and rhythm. No murmurs, rubs or gallops heard RESPIRATORY: Clear to auscultation. Breath sounds equal bilaterally. No rales , wheezing or rhonchi ABDOMEN: Soft, non-tender, nondistended. Bowel sounds present and normoactive. No guarding. No rebound. No organomegaly. BACK: There is a wound vac in his R buttock, and there is surrounding induration around the sponge covered wound, drainage in tubing is a dark red color EXTREMITIES: No clubbing, cyanosis, or edema. No joint effusion, has good ROM. No calf tenderness. Well perfused and warm. NEUROLOGICAL: Non-focal PSYCHIATRIC: Normal affect, calm and cooperative. LINE: No evidence of infection Assessment & Plan Remarks IMPRESSION Infected R buttock decubitus S/P debridement - C/S polymicrobial as expected - GNR, Enterococcus, VRE and MRSA DM, poorly controlled Known IVDU Poor medical compliance Homelessness RECOMMENDATION Continue Zyvox Continue Cipro and Flagyl Follow CBC while on Zyvox Wound care per surgery Give 14 days Abx Main pandey to his treatment is debridement to healthy tissue I will sign off Please call if with any new ID issue or question Concepcion Faye MD Oct 21, 2016 14:38
--- NOTE | 2016-10-21 15:12 | HHI.PR ---
Subjective Subjective Notes Resting in bed Wound Vac malfunction overnight and wet to dry dressing applied Objective Vitals/I&O Vital Signs Date Time Temp Pulse Resp B/P Pulse Ox O2 Delivery O2 Flow Rate FiO2 10/21/16 12:00 97.1 69 17 126/71 97 Labs Laboratory Tests Test 10/21/16 06:55 White Blood Count 6.0 Red Blood Count 4.46 Hemoglobin 11.4 Hematocrit 35.4 Mean Corpuscular Volume 79.5 Mean Corpuscular Hemoglobin 25.6 Mean Corpuscular Hemoglobin 32.2 Concent Red Cell Distribution Width 13.7 Platelet Count 286 Mean Platelet Volume 8.6 Sodium Level 133 Potassium Level 4.1 Chloride Level 97 Carbon Dioxide Level 29.7 Anion Gap 6 Blood Urea Nitrogen 15 Creatinine 0.80 Estimat Glomerular Filtration 124 Rate Random Glucose 268 Calcium Level 8.1 Radiology Last 48 hours Impressions Sacrum and Coccyx X-Ray 10/16/16 0000 Signed Impressions: Service Date/Time: September 17:51 - CONCLUSION: Subcutaneous emphysema in this patient with decubitus ulcer. Osseous structures are intact. No definite plain radiographic evidence of osteomyelitis. Gerson Clayton MD Ankle X-Ray 10/16/16 0000 Signed Impressions: Service Date/Time: September 17:45 - CONCLUSION: No acute disease. Gerson Clayton MD Cardiovascular: Regular Lungs: Clear Abdomen: Non-distended, Non-tender Extremities: Perfused Narrative Exam Large RIGHT gluteal wound ---- moderate amount of exudate and drainage; s/p bedside debridement again today; Wound Vac reapplied with good seal A/P Assessment and Plan 51 year old male with multiple medical problems; large RIGHT gluteal wound s/p bedside debridement and Wound Vac placement -s/p bedside debridement again today -Wound Vac re-applied -1800 ADA diet -Discussed with MIRIAN Vallejo -Discussed with Dr. Soriano ([employer]); I recommend plastic surgery consultation---[facility] does not have Plastic Surgery coverage at this time--I recommend transfer to a facility that has Plastic Surgery for further evaluation of large wound; patient likely needs flap placement as well which would need to be done by a Plastic Surgeon Hannah Hadley Oct 21, 2016 15:12
[2016-10-21 16:00] VITALS: BP 121/64; PULSE 82; RESP 17; TEMP 97.3; O2SAT 97
[2016-10-21 20:00] VITALS: BP 128/71; PULSE 75; RESP 19; TEMP 96.5; O2SAT 95
[2016-10-22] VITALS: BP 135/79; PULSE 61; RESP 18; TEMP 97.5; O2SAT 96
[2016-10-22] MEDS: CHLORHEXIDINE GLUCONATE 2 % 1 PACK (2 CLOTHS) TOP SCH (03:20)
[2016-10-22] MEDS: LINEZOLID 600 MG PREMIX 300 ML IV SCH ×3 (05:36→17:00)
[2016-10-22] MEDS: METOCLOPRAMIDE HCL 10 MG TAB PO SCH ×4 (05:36→20:38)
[2016-10-22] MEDS: metroNIDAZOLE 500 MG TAB PO SCH ×3 (05:36→20:38)
[2016-10-22] MEDS: INSULIN DETEMIR 100 UNITS/ML VIAL SQ SCH ×2 (05:39→16:43)
[2016-10-22] MEDS: INSULIN ASPART SUPPLEMENTAL SCALE SQ SCH ×4 (05:39→20:37)
[2016-10-22 07:16] LABS: AUTOMATED NEUTROPHIL # 3.7 TH/MM3 (1.8-7.7); BASOPHIL # 0.1 TH/MM3 (0-0.2); BASOPHIL % 0.8 % (0.0-2.0); EOSINOPHIL # 0.2 TH/MM3 (0-0.4); EOSINOPHIL % 3.6 % (0.0-4.0); HEMO FLAGS DIFF FINAL; LYMPH % 28.6 % (9.0-44.0); LYMPHOCYTE # 1.9 TH/MM3 (1.0-4.8); MEAN CELL VOLUME 79.2 FL (80.0-100.0); MEAN CORPUSCULAR HEMOGLOBIN 26.1 PG (27.0-34.0); MEAN CORPUSCULAR HGB CONC 32.9 % (32.0-36.0); PLATELET COUNT 319 TH/MM3 (150-450); RED BLOOD COUNT 4.93 MIL/MM3 (4.50-5.90); WHITE BLOOD COUNT 6.6 TH/MM3 (4.0-11.0)
[2016-10-22 07:53] LABS: ALKALINE PHOSPHATASE 130 U/L (45-117); ALT (GPT) 125 U/L (12-78); ANION GAP 7 MEQ/L (5-15); AST (GOT) 151 U/L (15-37); BICARBONATE 28.9 MEQ/L (21.0-32.0); BLOOD UREA NITROGEN 14 MG/DL (7-18); CHLORIDE 95 MEQ/L (98-107); GLOMERULAR FILTRATION RATE 109 ML/MIN (>89); POTASSIUM 4.1 MEQ/L (3.5-5.1); SODIUM (NA) 131 MEQ/L (136-145); TOTAL BILIRUBIN ADULT 0.4 MG/DL (0.2-1.0)
[2016-10-22 08:00] VITALS: BP 114/79; PULSE 54; RESP 18; TEMP 97.9; O2SAT 100
[2016-10-22] MEDS: HEPARIN SODIUM - SQ 10,000 UNITS/ML VIAL SQ SCH ×2 (08:00→20:38)
[2016-10-22] MEDS: SODIUM HYPOCHLORITE 0.125% 500 ML BTL TOPICAL SCH ×2 (09:00→21:00)
[2016-10-22] MEDS: amLODIPine BESYLATE 5 MG TAB PO SCH (10:10)
[2016-10-22] MEDS: CARVEDILOL 6.25 MG TAB PO SCH ×2 (10:11→20:38)
[2016-10-22] MEDS: LIPASE/PROTEASE/AMYLASE (6,000/19,000/30,000) CAP PO SCH ×3 (10:11→16:41)
[2016-10-22] MEDS: ASPIRIN 81 MG CHEW TAB PO SCH (10:11)
[2016-10-22] MEDS: CIPROFLOXACIN 750 MG TAB PO SCH ×2 (10:11→20:38)
[2016-10-22] MEDS: MULTIVITAMIN TAB PO SCH (10:11)
[2016-10-22] MEDS: DOCUSATE SODIUM 50 MG/SENNA 8.6 MG TAB PO SCH ×2 (10:12→20:20)
[2016-10-22] MEDS: SODIUM CHLORIDE 0.9% FLUSH 10 ML FLUSH IV FLUSH SCH ×2 (10:12→20:20)
[2016-10-22 12:00] VITALS: BP 108/64; PULSE 72; RESP 18; TEMP 96.1; O2SAT 97
--- NOTE | 2016-10-22 12:09 | HHI.FPPN ---
Subjective Remarks Pt seen and evaluated this morning. Patient underwent wound VAC change and gluteal wound debridement at bedside yesterday. He reports that his pain is well-controlled. He denies chest pain, shortness of breath, abdominal pain, diarrhea. He has no acute concerns. Objective Vitals Vital Signs Date Time Temp Pulse Resp B/P Pulse Ox O2 Delivery O2 Flow Rate FiO2 10/22/16 08:00 97.9 54 18 114/79 100 10/22/16 00:00 97.5 61 18 135/79 96 10/21/16 20:00 96.5 75 19 128/71 95 10/21/16 16:00 97.3 82 17 121/64 97 I/O 10/21/16 10/21/16 10/21/16 10/22/16 10/22/16 10/22/16 07:00 15:00 23:00 07:00 15:00 23:00 Intake Total 480 ml 820 ml 360 ml 0 ml Output Total 250 ml 100 ml 300 ml 50 ml Balance 230 ml 720 ml 60 ml -50 ml Intake Oral 480 ml 720 ml 360 ml IV Total 0 ml 100 ml 0 ml Output Urine Total 250 ml 100 ml 300 ml Drainage Total 50 ml # Voids 2 # Bowel Movements 0 2 0 Result Diagram: 10/22/16 0610 10/22/16 0640 Objective Remarks GENERAL: This is a well-nourished, well-developed patient, in no apparent distress. Lying in hospital bed. SKIN: Cool and dry. Decubitus ulcer on right buttock with wound vac securely in place. HEENT: Atraumatic. Normocephalic. Pupils equal round. Some scleral icterus. Nose without bleeding, purulent drainage or septal hematoma. Airway patent. NECK: Trachea midline. No JVD or lymphadenopathy. Supple, nontender. CARDIOVASCULAR: Regular rate with 2/6 TRICIA. RESPIRATORY: Clear to auscultation. Breath sounds equal bilaterally. GASTROINTESTINAL: Abdomen soft, non-tender, nondistended. No guarding. Positive bowel sounds. MUSCULOSKELETAL: Extremities without clubbing, cyanosis, or edema. No joint tenderness, effusion, edema noted. No calf tenderness. NEUROLOGICAL: Alert and oriented x3. 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 Speech normal. Procedures Debridement of right buttocks ulcer at bedside 10/[address] Palmer, wound VAC replacement and bedside debridement again on 10/21. A/P Assessment and Plan 51-year-old male with history of poorly controlled diabetes admitted for hyperglycemia crisis (HHS) and extensive right buttock wound which is being surgically managed. Discharge Planning Pt s/p wound vac placement and wound debridement. It is recommended that pt be transferred to a facility where plastic surgery is available for consultation regarding flap placement. Problem List: (1) Infected decubitus ulcer Status: Acute Plan: General surgery following appreciate recommendations and interventions * Admitted for patient to be transferred to a facility with plastic surgery for consultation regarding flap placement. Pt reports he is willing to be transferred for further treatment. * Case discussed with hospitalist Dr. Ramirez. * [email or web address] transfer line to discuss transfer: [phone], Fax number: [phone] * Request hemoglobin A1c and recent echo results to be sent in order to determine if patient is a surgical candidate, also a face sheet is requested. * Status post bedside debridement 10/[address] Palmer, which patient tolerated well. Wound debridement and wound VAC re-placed on 10/21. Consulted Infectious Disease to follow patient course, as patient wound is growing MRSA, Enteroccocus Faecalis and enterococcusfaecium VRE ID Recommendations: * Continue IV Vancomycin (10/15present) * Continue Cipro and Flagyl (10/19- present) * Blood culture Final-no growth in 5 days * Consulted wound management. (2) Hyperglycemia Status: Acute Plan: Bedside glucose ranging from 813298 over the past 24 hours. Hemoglobin A1C is 13.8H. He has required 28 units of NovoLog over the last 24 hours * Will increase Levemir 15 units BIDAC, continue to monitor blood sugar * Continue NovoLog Supplemental Scale low-dose. Etiology: * Medication non-compliance * Aggravated by infection of decubitus ulcer on right buttocks (3) Hyponatremia Status: Acute Plan: Sodium today is 131. Continue to monitor closely Etiology: * Hyperglycemia (4) Cocaine abuse Status: Chronic Plan: Patient with history of cocaine abuse. Patient counseled regarding illicit substance use (5) CHF (congestive heart failure) Status: Chronic Plan: PEA arrest on 09/16/16. Hx of CHF and cardiomyopathy. -ACS rule out negative -BNP slightly elevated to 146 (6) Fluid, Electrolyte, Nutrition, and Prophylaxis Status: Acute Plan: Fluid: * Tolerating PO. Electrolyte: * Monitor and replete if necessary. * See above Nutrition: * Diet 1999 ADA Consistent Carb * Nutrition consulted, appreciate recs: Recommended continue current diet and add Tim 2 packs per day in addition to daily MV * Pre-albumin 10L. DVT Prophylaxis: * Heparin 5,000 units q12h SQ GI Prophylaxis: * Not indicated at this time. Problem Qualifiers (1) Infected decubitus ulcer: Qualified Code: L89.95 - Infected decubitus ulcer, unstageable Jamir Soriano MD R2 Oct 22, 2016 12:09
[2016-10-22 16:00] VITALS: BP 112/77; PULSE 75; RESP 18; TEMP 97.3; O2SAT 100
[2016-10-22 20:00] VITALS: BP 123/72; PULSE 78; RESP 16; TEMP 98.3; O2SAT 97
[2016-10-23] VITALS: BP 115/68; PULSE 70; RESP 16; TEMP 97.3; O2SAT 97
[2016-10-23] MEDS: CHLORHEXIDINE GLUCONATE 2 % 1 PACK (2 CLOTHS) TOP SCH (04:00)
[2016-10-23] MEDS: LINEZOLID 600 MG PREMIX 300 ML IV SCH ×3 (05:00→19:52)
[2016-10-23] MEDS: metroNIDAZOLE 500 MG TAB PO SCH ×3 (05:29→20:59)
[2016-10-23] MEDS: METOCLOPRAMIDE HCL 10 MG TAB PO SCH ×4 (05:30→20:59)
[2016-10-23] MEDS: INSULIN DETEMIR 100 UNITS/ML VIAL SQ SCH ×2 (05:32→18:00)
[2016-10-23] MEDS: INSULIN ASPART SUPPLEMENTAL SCALE SQ SCH ×4 (05:34→21:06)
[2016-10-23 05:54] LABS: AUTOMATED NEUTROPHIL # 3.4 TH/MM3 (1.8-7.7); BASOPHIL % 0.5 % (0.0-2.0); EOSINOPHIL # 0.3 TH/MM3 (0-0.4); EOSINOPHIL % 3.7 % (0.0-4.0); HEMATOCRIT 35.5 % (39.0-51.0); HEMO FLAGS DIFF FINAL; LYMPH % 31.1 % (9.0-44.0); LYMPHOCYTE # 2.1 TH/MM3 (1.0-4.8); MEAN CELL VOLUME 79.8 FL (80.0-100.0); MEAN CORPUSCULAR HEMOGLOBIN 25.7 PG (27.0-34.0); MEAN CORPUSCULAR HGB CONC 32.2 % (32.0-36.0); NEUT % 50.7 % (16.0-70.0); PLATELET COUNT 359 TH/MM3 (150-450); RED BLOOD COUNT 4.44 MIL/MM3 (4.50-5.90); RED CELL DISTRIBUTION WIDTH 14.1 % (11.6-17.2); WHITE BLOOD COUNT 6.8 TH/MM3 (4.0-11.0)
[2016-10-23 06:17] LABS: ALKALINE PHOSPHATASE 118 U/L (45-117); ALT (GPT) 129 U/L (12-78); ANION GAP 6 MEQ/L (5-15); AST (GOT) 156 U/L (15-37); BICARBONATE 29.6 MEQ/L (21.0-32.0); BLOOD UREA NITROGEN 16 MG/DL (7-18); CHLORIDE 96 MEQ/L (98-107); GLOMERULAR FILTRATION RATE 109 ML/MIN (>89); POTASSIUM 4.3 MEQ/L (3.5-5.1); SODIUM (NA) 132 MEQ/L (136-145); TOTAL BILIRUBIN ADULT 0.4 MG/DL (0.2-1.0)
[2016-10-23 08:00] VITALS: BP 108/66; PULSE 75; RESP 17; TEMP 97.8; O2SAT 97
--- NOTE | 2016-10-23 08:26 | HHI.FPPN ---
Subjective Remarks Pt seen and examined this morning. AVFSS. Overnight pt was very frustrated at needing to be in the hospital and he pulled out his IV and removed his wound vac. He denies any chest pain, shortness of breath, abdominal pain, diarrhea. He has no other acute concerns. He expresses interest in meeting with a hospice educator to help better control his blood sugar. Objective Vitals Vital Signs Date Time Temp Pulse Resp B/P Pulse Ox O2 Delivery O2 Flow Rate FiO2 10/23/16 08:00 97.8 75 17 108/66 97 10/23/16 00:00 97.3 70 16 115/68 97 10/22/16 20:00 98.3 78 16 123/72 97 10/22/16 16:00 97.3 75 18 112/77 100 10/22/16 12:00 96.1 72 18 108/64 97 I/O 10/22/16 10/22/16 10/22/16 10/23/16 10/23/16 10/23/16 06:59 14:59 22:59 06:59 14:59 22:59 Intake Total 0 ml 220 ml 0 ml 840 ml Output Total 50 ml 1035 ml Balance -50 ml -815 ml 0 ml 840 ml Intake Oral 220 ml 840 ml IV Total 0 ml 0 ml 0 ml Output Urine Total 1025 ml Drainage Total 50 ml 10 ml # Voids 3 # Bowel Movements 0 0 Result Diagram: 10/23/1652010/23/16520 Objective Remarks GENERAL: This is a well-nourished, well-developed patient, in no apparent distress. Lying in hospital bed. SKIN: Cool and dry. Decubitus ulcer on right buttock covered with wound dressing. HEENT: Atraumatic. Normocephalic. Pupils equal round. Some scleral icterus. Nose without bleeding, purulent drainage or septal hematoma. Airway patent. NECK: Trachea midline. No JVD or lymphadenopathy. Supple, nontender. CARDIOVASCULAR: Regular rate with 2/6 TRICIA. RESPIRATORY: Clear to auscultation. Breath sounds equal bilaterally. GASTROINTESTINAL: Abdomen soft, non-tender, nondistended. No guarding. Positive bowel sounds. MUSCULOSKELETAL: Extremities without clubbing, cyanosis, or edema. No joint tenderness, effusion, edema noted. No calf tenderness. NEUROLOGICAL: Alert and oriented x3. 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 Speech normal. Procedures Debridement of right buttocks ulcer at bedside 10/[address] Palmer, wound VAC replacement and bedside debridement again on 10/21. A/P Assessment and Plan 51-year-old male with history of poorly controlled diabetes admitted for hyperglycemia crisis (HHS) and extensive right buttock wound which is being surgically managed. Discharge Planning Pt s/p wound vac placement and wound debridement. It is recommended that pt be transferred to a facility where plastic surgery is available for consultation regarding flap placement. Problem List: (1) Infected decubitus ulcer Status: Acute Plan: PICC like to be placed today for extended course of IV abx and difficult IV access. General surgery following appreciate recommendations and interventions * Admitted for patient to be transferred to a facility with plastic surgery for consultation regarding flap placement. Pt reports he is willing to be transferred for further treatment. * Case discussed with hospitalist Dr. Ramirez. * [facility] transfer line to discuss transfer: [phone], Fax number: * Request hemoglobin A1c and recent echo results to be sent in order to determine if patient is a surgical candidate, also a face sheet is requested. * Status post bedside debridement 10/[address] Palmer, which patient tolerated well. Wound debridement and wound VAC re-placed on 10/21. Consulted Infectious Disease to follow patient course, as patient wound is growing MRSA, Enteroccocus Faecalis and enterococcusfaecium VRE ID Recommendations: * Continue IV Vancomycin (10/15present) * Continue Cipro and Flagyl (10/19- present) * Blood culture Final-no growth in 5 days * Consulted wound management. (2) Hyperglycemia Status: Acute Plan: Bedside glucose ranging from 203-418 over the past 24 hours. Hemoglobin A1C is 13.8H. He has required 32 units of NovoLog over the last 24 hours * Will increase Levemir 20 units BIDAC, continue to monitor blood sugar * Continue NovoLog Supplemental Scale low-dose. * hospice educator consulted Etiology: * Medication non-compliance * Aggravated by infection of decubitus ulcer on right buttocks (3) Hyponatremia Status: Acute Plan: Sodium today is 132. Continue to monitor closely Etiology: * Hyperglycemia (4) Cocaine abuse Status: Chronic Plan: Patient with history of cocaine abuse. Patient counseled regarding illicit substance use (5) CHF (congestive heart failure) Status: Chronic Plan: PEA arrest on 09/16/16. Hx of CHF and cardiomyopathy. -ACS rule out negative -BNP slightly elevated to 146 (6) Fluid, Electrolyte, Nutrition, and Prophylaxis Status: Acute Plan: Fluid: * Tolerating PO. Electrolyte: * Monitor and replete if necessary. * See above Nutrition: * Diet 1999 ADA Consistent Carb * Nutrition consulted, appreciate recs: Recommended continue current diet and add Tim 2 packs per day in addition to daily MV * Pre-albumin 10L. DVT Prophylaxis: * Heparin 5,000 units q12h SQ GI Prophylaxis: * Not indicated at this time. Problem Qualifiers (1) Infected decubitus ulcer: Qualified Code: L89.95 - Infected decubitus ulcer, unstageable Jamir Soriano MD R2 Oct 23, 2016 08:26
[2016-10-23] MEDS: SODIUM CHLORIDE 0.9% FLUSH 10 ML FLUSH IV FLUSH SCH ×2 (09:00→21:00)
[2016-10-23] MEDS: CARVEDILOL 6.25 MG TAB PO SCH ×3 (09:00→21:00)
[2016-10-23] MEDS: SODIUM HYPOCHLORITE 0.125% 500 ML BTL TOPICAL SCH ×2 (09:00→21:00)
[2016-10-23] MEDS: amLODIPine BESYLATE 5 MG TAB PO SCH ×2 (09:00→12:57)
[2016-10-23] MEDS: DOCUSATE SODIUM 50 MG/SENNA 8.6 MG TAB PO SCH ×2 (09:05→20:59)
[2016-10-23] MEDS: HEPARIN SODIUM - SQ 10,000 UNITS/ML VIAL SQ SCH ×2 (09:05→21:00)
[2016-10-23] MEDS: ASPIRIN 81 MG CHEW TAB PO SCH (09:05)
[2016-10-23] MEDS: MULTIVITAMIN TAB PO SCH (09:05)
[2016-10-23] MEDS: LIPASE/PROTEASE/AMYLASE (6,000/19,000/30,000) CAP PO SCH ×3 (09:05→17:57)
[2016-10-23 12:00] VITALS: BP 107/56; PULSE 69; RESP 17; TEMP 97.6; O2SAT 99
[2016-10-23] MEDS: CIPROFLOXACIN 750 MG TAB PO SCH ×2 (12:56→21:00)
[2016-10-23 16:00] VITALS: BP_SYST 109; BP_SYST 154; BP_DIAS 63; BP_DIAS 72; PULSE 70; PULSE 79; RESP 17; TEMP 96.9; TEMP 97.9; O2SAT 96
[2016-10-23 20:00] VITALS: BP 119/71; PULSE 72; RESP 16; TEMP 98.4; O2SAT 98
[2016-10-24] VITALS: BP 98/59; PULSE 74; RESP 16; TEMP 97.7; O2SAT 96
[2016-10-24] MEDS: CHLORHEXIDINE GLUCONATE 2 % 1 PACK (2 CLOTHS) TOP SCH (02:21)
[2016-10-24] MEDS: metroNIDAZOLE 500 MG TAB PO SCH (05:23)
[2016-10-24] MEDS: METOCLOPRAMIDE HCL 10 MG TAB PO SCH (05:24)
[2016-10-24 05:34] LABS: AUTOMATED NEUTROPHIL # 3.9 TH/MM3 (1.8-7.7); BASOPHIL # 0.1 TH/MM3 (0-0.2); BASOPHIL % 0.8 % (0.0-2.0); EOSINOPHIL # 0.3 TH/MM3 (0-0.4); EOSINOPHIL % 4.4 % (0.0-4.0); HEMATOCRIT 37.6 % (39.0-51.0); HEMO FLAGS DIFF FINAL; LYMPH % 30.5 % (9.0-44.0); LYMPHOCYTE # 2.4 TH/MM3 (1.0-4.8); MEAN CELL VOLUME 79.3 FL (80.0-100.0); MEAN CORPUSCULAR HEMOGLOBIN 26.1 PG (27.0-34.0); MEAN CORPUSCULAR HGB CONC 32.9 % (32.0-36.0); MONO % 13.5 % (0.0-8.0); NEUT % 50.8 % (16.0-70.0); PLATELET COUNT 388 TH/MM3 (150-450); RED BLOOD COUNT 4.74 MIL/MM3 (4.50-5.90); RED CELL DISTRIBUTION WIDTH 14.2 % (11.6-17.2); WHITE BLOOD COUNT 7.8 TH/MM3 (4.0-11.0)
[2016-10-24] MEDS: INSULIN ASPART SUPPLEMENTAL SCALE SQ SCH (05:58)
[2016-10-24] MEDS: INSULIN DETEMIR 100 UNITS/ML VIAL SQ SCH (06:12)
[2016-10-24 06:31] LABS: ALKALINE PHOSPHATASE 126 U/L (45-117); ALT (GPT) 139 U/L (12-78); ANION GAP 7 MEQ/L (5-15); AST (GOT) 134 U/L (15-37); BICARBONATE 26.8 MEQ/L (21.0-32.0); BLOOD UREA NITROGEN 15 MG/DL (7-18); CHLORIDE 99 MEQ/L (98-107); GLOMERULAR FILTRATION RATE 137 ML/MIN (>89); SODIUM (NA) 133 MEQ/L (136-145); TOTAL BILIRUBIN ADULT 0.4 MG/DL (0.2-1.0)
[2016-10-24 08:00] VITALS: BP 116/75; PULSE 68; RESP 14; TEMP 96.5; O2SAT 98
[2016-10-24] MEDS: ASPIRIN 81 MG CHEW TAB PO SCH (08:58)
[2016-10-24] MEDS: amLODIPine BESYLATE 5 MG TAB PO SCH (08:58)
[2016-10-24] MEDS: DOCUSATE SODIUM 50 MG/SENNA 8.6 MG TAB PO SCH (08:58)
[2016-10-24] MEDS: MULTIVITAMIN TAB PO SCH (08:59)
[2016-10-24] MEDS: LIPASE/PROTEASE/AMYLASE (6,000/19,000/30,000) CAP PO SCH (08:59)
[2016-10-24] MEDS: HEPARIN SODIUM - SQ 10,000 UNITS/ML VIAL SQ SCH (08:59)
[2016-10-24] MEDS: CARVEDILOL 6.25 MG TAB PO SCH (08:59)
[2016-10-24] MEDS: SODIUM CHLORIDE 0.9% FLUSH 10 ML FLUSH IV FLUSH SCH (09:00)
[2016-10-24] MEDS ORDERED: INSU0.5M12 (10:08)
[2016-10-24] MEDS ORDERED: LEVEMIR SQ (10:08)
[2016-10-24] MEDS ORDERED: CIPR750T2 PO (10:08)
[2016-10-24] MEDS ORDERED: BACT400T PO (10:08)
--- NOTE | 2016-10-24 11:39 | HHI.FPPN ---
Subjective Remarks Pt seen and examined this morning. Patient is currently refusing IV antibiotics. He denies chest pain, shortness of breath, abdominal pain. Patient expresses the desire to leave the hospital against medical advice. ( Jamir Soriano MD R2) Objective Vitals Vital Signs Date Time Temp Pulse Resp B/P Pulse Ox O2 Delivery O2 Flow Rate FiO2 10/24/16 08:00 96.5 68 14 116/75 98 10/24/16 00:00 97.7 74 16 98/59 96 10/23/16 20:00 98.4 72 16 119/71 98 10/23/16 16:00 96.9 70 17 109/63 96 10/23/16 12:00 97.6 69 17 107/56 99 I/O 10/23/16 10/23/16 10/23/16 10/24/16 10/24/16 10/24/16 07:00 15:00 23:00 07:00 15:00 23:00 Intake Total 360 ml 480 ml Balance 360 ml 480 ml Intake Oral 360 ml 480 ml IV Total 0 ml 0 ml # Voids 1 3 1 1 # Bowel Movements 0 1 0 (Jamir Soriano MD R2) Result Diagram: 10/24/1651210/24/16 0513 Objective Remarks GENERAL: This is a well-nourished, well-developed patient, in no apparent distress. SKIN: Cool and dry. Decubitus ulcer on right buttock covered with wound dressing. HEENT: Atraumatic. Normocephalic. Pupils equal round. Some scleral icterus. Nose without bleeding, purulent drainage or septal hematoma. Airway patent. NECK: Trachea midline. No JVD or lymphadenopathy. Supple, nontender. CARDIOVASCULAR: Regular rate with 2/6 TRICIA. RESPIRATORY: Clear to auscultation. Breath sounds equal bilaterally. GASTROINTESTINAL: Abdomen soft, non-tender, nondistended. No guarding. Positive bowel sounds. MUSCULOSKELETAL: Extremities without clubbing, cyanosis, or edema. No joint tenderness, effusion, edema noted. No calf tenderness. NEUROLOGICAL: Alert and oriented x3. video games mechanic grossly intact. Speech normal. Procedures Debridement of right buttocks ulcer at bedside 10/[address] Palmer, wound VAC replacement and bedside debridement again on 10/21. (Jamir Soriano MD R2) A/P Assessment and Plan 51-year-old male with history of poorly controlled diabetes admitted for hyperglycemia crisis (HHS) and extensive right buttock wound which is being surgically managed. Discharge Planning Pt s/p wound vac placement and wound debridement. It is recommended that pt be transferred to a facility where plastic surgery is available for consultation regarding flap placement. (Jamir Soriano MD R2) Attending Attestation Patient seen and examined. Case reviewed and discussed with the resident team. Agree with plan of care as discussed with me and documented in the resident note. (Jd Villa MD) Problem List: (1) Infected decubitus ulcer Status: Acute Plan: Pt refusing IV antibiotics General surgery following appreciate recommendations and interventions * Admitted for patient to be transferred to a facility with plastic surgery for consultation regarding flap placement. Pt reports he is willing to be transferred for further treatment. * Case discussed with hospitalist Dr. Ramirez. * [facility] transfer line to discuss transfer: [phone], Fax number: * Request hemoglobin A1c and recent echo results to be sent in order to determine if patient is a surgical candidate, also a face sheet is requested. * Status post bedside debridement 10/[address] Palmer, which patient tolerated well. Wound debridement and wound VAC re-placed on 10/21. Consulted Infectious Disease to follow patient course, as patient wound is growing MRSA, Enteroccocus Faecalis and enterococcusfaecium VRE ID Recommendations: * Continue IV Vancomycin (10/15present) * Continue Cipro and Flagyl (10/19- present) * Blood culture Final-no growth in 5 days * Consulted wound management. (2) Hyperglycemia Status: Acute Plan: Bedside glucose ranging from 570906 over the past 24 hours. Hemoglobin A1C is 13.8H. This morning pt not require any sliding scale insulin. * Continue Levemir 20 units BIDAC, continue to monitor blood sugar * Continue NovoLog Supplemental Scale low-dose. * hospice educator consulted Etiology: * Medication non-compliance * Aggravated by infection of decubitus ulcer on right buttocks (3) Hyponatremia Status: Acute Plan: Sodium today is 133. Continue to monitor closely Etiology: * Hyperglycemia (4) Cocaine abuse Status: Chronic Plan: Patient with history of cocaine abuse. Patient counseled regarding illicit substance use (5) CHF (congestive heart failure) Status: Chronic Plan: PEA arrest on 09/16/16. Hx of CHF and cardiomyopathy. -ACS rule out negative -BNP slightly elevated to 146 (6) Fluid, Electrolyte, Nutrition, and Prophylaxis Status: Acute Plan: Fluid: * Tolerating PO. Electrolyte: * Monitor and replete if necessary. * See above Nutrition: * Diet 1999 ADA Consistent Carb * Nutrition consulted, appreciate recs: Recommended continue current diet and add Tim 2 packs per day in addition to daily MV * Pre-albumin 10L. DVT Prophylaxis: * Heparin 5,000 units q12h SQ GI Prophylaxis: * Not indicated at this time. (Jamir Soriano MD R2) Problem Qualifiers (1) Infected decubitus ulcer: Qualified Code: L89.95 - Infected decubitus ulcer, unstageable Jamir Soriano MD R2 Oct 24, 2016 11:39 Jd Villa MD Oct 24, 2016 16:05
--- NOTE | 2016-10-24 11:45 | PD.AMA ---
Against Medical Advice Note Discharge Disposition: Against Medical Advice Pt Condition on Discharge: Stable AMA Statement Patient Laci Kahn Jr has decided to leave the hospital against medical advice. This patient has the capacity to refuse care and understands the risks of leaving, including permanent disability and/or , and has had an opportunity to ask questions about his condition. The patient has been informed that he may return for care at any time, and follow up has been arranged/ advised. Pt will not be accepted back to the family medicine teaching service. Jamir Soirano MD R2 Oct 24, 2016 11:45
--- NOTE | 2016-10-24 12:07 | HHI.DS ---
Discharge Summary Admission Date Oct 15, 2016 at 17:52 Discharge Date: Oct 24, 2016 Admitting Diagnosis Hyperglycemia (1) Infected decubitus ulcer Diagnosis: Principal Plan: PICC like to be placed today for extended course of IV abx and difficult IV access. General surgery following appreciate recommendations and interventions * Admitted for patient to be transferred to a facility with plastic surgery for consultation regarding flap placement. Pt reports he is willing to be transferred for further treatment. * Case discussed with hospitalist Dr. Ramirez. * [facility] transfer line to discuss transfer: [phone], Fax number: [phone] * Request hemoglobin A1c and recent echo results to be sent in order to determine if patient is a surgical candidate, also a face sheet is requested. * Status post bedside debridement 10/[address] Palmer, which patient tolerated well. Wound debridement and wound VAC re-placed on 10/21. Consulted Infectious Disease to follow patient course, as patient wound is growing MRSA, Enteroccocus Faecalis and enterococcusfaecium VRE ID Recommendations: * Continue IV Vancomycin (10/15present) * Continue Cipro and Flagyl (10/19- present) * Blood culture Final-no growth in 5 days * Consulted wound management. (2) Hyperglycemia Diagnosis: Principal Plan: Bedside glucose ranging from 203-418 over the past 24 hours. Hemoglobin A1C is 13.8H. He has required 32 units of NovoLog over the last 24 hours * Will increase Levemir 20 units BIDAC, continue to monitor blood sugar * Continue NovoLog Supplemental Scale low-dose. * inclusion special educator consulted Etiology: * Medication non-compliance * Aggravated by infection of decubitus ulcer on right buttocks (3) Hyponatremia Plan: Sodium today is 132. Continue to monitor closely Etiology: * Hyperglycemia (4) Cocaine abuse Plan: Patient with history of cocaine abuse. Patient counseled regarding illicit substance use (5) CHF (congestive heart failure) Plan: PEA arrest on 09/16/16. Hx of CHF and cardiomyopathy. -ACS rule out negative -BNP slightly elevated to 146 (6) Fluid, Electrolyte, Nutrition, and Prophylaxis Plan: Fluid: * Tolerating PO. Electrolyte: * Monitor and replete if necessary. * See above Nutrition: * Diet 2000 ADA Consistent Carb * Nutrition consulted, appreciate recs: Recommended continue current diet and add Tim 2 packs per day in addition to daily MV * Pre-albumin 10L. DVT Prophylaxis: * Heparin 5,000 units q12h SQ GI Prophylaxis: * Not indicated at this time. Procedures Debridement of right buttocks ulcer at bedside 10/[address] Palmer, wound VAC replacement and bedside debridement again on 10/21. Brief History Patient states that he reported to ED because he felt his "sugar was high." When asked to elaborate, he continues to doze off. He states he is tired because he hasn't gotten much sleep. He denies chest pain, heart palpitations, shortness of breath, nausea/vomiting, diarrhea and constipation. He admits to increased frequency in urination today. He denies burning/pain with urination. He denies blood in urine. When asked about the ulcer on his right buttocks, he states that he has had it since his admission for an TN a few months ago. He denies alcohol intake. He denies drug use. Patient admits to taking medicine he was prescribed; "medicine for my heart." He is unable to recall the name of the medicine. He is unable to recall the name of the prescribing physician. Of note, patient suffered PEA arrest on 09/16/16. He was intubated x3 days. During that admission, patient was found to have 7x6mm nodule in right upper lung lobe; he was instructed to have follow up CT in 3 months. Patient was also admitted to hospital on 10/08/16 with a decubitus ulcer on his right buttocks. He was found to be hyperglycemic. He was treated with Vancomycin, Zosyn and insulin. Arrangements were made for him to be admitted to the hospital. However, he subsequently signed out AMA. His white blood count at that time was 11.4. Wound culture grew MRSA and enterococcus faecalis. Patient returned to ED on 10/10/16 with suicidal ideations. He signed out AMA. CBC/BMP: 10/24/16 0513 10/24/16 0513 Significant Findings Laboratory Tests Test 10/22/16 10/22/16 10/23/16 10/24/16 06:10 06:40 05:21 05:13 Hemoglobin 12.9 GM/DL 11.4 GM/DL 12.3 GM/DL (13.0-17.0) (13.0-17.0) (13.0-17.0) Mean Corpuscular Volume 79.2 FL 79.8 FL 79.3 FL (80.0-100.0) (80.0-100.0) (80.0-100.0) Mean Corpuscular Hemoglobin 26.1 PG 25.7 PG 26.1 PG (27.0-34.0) (27.0-34.0) (27.0-34.0) Monocytes (%) (Auto) 11.0 % 14.0 % 13.5 % (0.0-8.0) (0.0-8.0) (0.0-8.0) Sodium Level 131 MEQ/L 132 MEQ/L 133 MEQ/L (136-145) (136-145) (136-145) Chloride Level 95 MEQ/L 96 MEQ/L (98-107) (98-107) Random Glucose 209 MG/DL 333 MG/DL 73 MG/DL (74-106) (74-106) (74-106) Calcium Level 8.4 MG/DL 8.1 MG/DL (8.5-10.1) (8.5-10.1) Aspartate Amino Transf 151 U/L (15-37) 156 U/L (15-37) 134 U/L (15-37) (AST/SGOT) Alanine Aminotransferase 125 U/L (12-78) 129 U/L (12-78) 139 U/L (12-78) (ALT/SGPT) Alkaline Phosphatase 130 U/L 118 U/L 126 U/L (45-117) (45-117) (45-117) Albumin 2.3 GM/DL 2.2 GM/DL 2.4 GM/DL (3.4-5.0) (3.4-5.0) (3.4-5.0) Red Blood Count 4.44 MIL/MM3 (4.50-5.90) Hematocrit 35.5 % 37.6 % (39.0-51.0) (39.0-51.0) Total Protein 6.1 GM/DL (6.4-8.2) Eosinophils (%) (Auto) 4.4 % (0.0-4.0) Monocytes # (Auto) 1.0 TH/MM3 (0-0.9) PE at Discharge GENERAL: This is a well-nourished, well-developed patient, in no apparent distress. Lying in hospital bed. SKIN: Cool and dry. Decubitus ulcer on right buttock covered with wound dressing. HEENT: Atraumatic. Normocephalic. Pupils equal round. Some scleral icterus. Nose without bleeding, purulent drainage or septal hematoma. Airway patent. NECK: Trachea midline. No JVD or lymphadenopathy. Supple, nontender. CARDIOVASCULAR: Regular rate with 2/6 TRICIA. RESPIRATORY: Clear to auscultation. Breath sounds equal bilaterally. GASTROINTESTINAL: Abdomen soft, non-tender, nondistended. No guarding. Positive bowel sounds. MUSCULOSKELETAL: Extremities without clubbing, cyanosis, or edema. No joint tenderness, effusion, edema noted. No calf tenderness. NEUROLOGICAL: Alert and oriented x3. water quality control engineer grossly intact. Speech normal. Hospital Course Pt is a 51 year old who was admitted with hyperglycemia. He has a history of diabetes and his blood sugars have not been well controlled. He also was found to have an infected decubitus ulcer. He was started on vancomycin and Zosyn. Blood sugars stabilized after administration of insulin. Patient was started on Levemir which was titrated until blood sugars were well-controlled. Wound care was consulted for management of decubitus ulcer and they recommended evaluation by surgery for debridement. Surgery performed debridement at bedside 2. A wound VAC was also placed. Infectious disease was also consulted regarding antibiotic selection and duration. It was recommended that pt be transfered to a facility where he could be evaluated by plastic surgery. [facility] was contacted regarding a possible transfer. Patient reports a history of IV drug use and he reports that this has caused him to become very agitated and frustrated during his hospitalization. Patient has repeatedly pulled out his IV access and refused any new IV access. He refused any additional IV antibiotics. Patient reported that he was not willing to remain in the hospital any longer and that he wished to leave. He expressed understanding that if he were to leave this would be against medical advice. Patient expressed understanding of the risks associated with leaving without being fully treated for his current medical issues, including . Pt Condition on Discharge: Jamir Sweet MD R2 Oct 24, 2016 12:07
== END 2016-10-24 10:41 | disposition left against medical advice (07) | DRG 593 ==
LOC: NEPC 14:48 → NEDH 17:52 → HIMN 23:50 → N07A 10-17 15:57
PROVIDERS: ADMIT Family Medicine; ATTEND Family Medicine
DX: L89.319 Pressure ulcer of right buttock, unspecified stage (principal); E87.1 Hypo-osmolality and hyponatremia; L89.159 Pressure ulcer of sacral region, unspecified stage; I11.0 Hypertensive heart disease with heart failure; I42.9 Cardiomyopathy, unspecified; I50.22 Chronic systolic (congestive) heart failure; T79.7XXA Traumatic subcutaneous emphysema, initial encounter; E11.65 Type 2 diabetes mellitus with hyperglycemia; B95.62 Methicillin resistant Staphylococcus aureus infection as the cause of diseases classified elsewhere; E16.2 Hypoglycemia, unspecified; E87.5 Hyperkalemia; I25.2 Old myocardial infarction; N28.9 Disorder of kidney and ureter, unspecified; Z59.0 Homelessness; Z79.4 Long term (current) use of insulin; Z79.82 Long term (current) use of aspirin; Z86.74 Personal history of sudden cardiac arrest; Z87.11 Personal history of peptic ulcer disease; Z91.14 Patient's other noncompliance with medication regimen; Z91.19 Patient's noncompliance with other medical treatment and regimen; F14.10 Cocaine abuse, uncomplicated
CPT/HCPCS: 36600; 72220; 73600; 76937; 80048; 80053; 80202; 80307; 81001; 82010; 82550; 82805; 82947; 82948; 83036; 83605; 83735; 83880; 84100; 84134; 84484; 85025; 85027; 85652; 86140; 86403; 86703; 87040; 87070; 87077; 87147; 87186; 87205; 87641; 93005; 96361; 96374; J1170; J1644; J1815; J1817; J2020; J2270; J2543; J3370; J7030; J7042; J7050

== ENCOUNTER 2016-10-25 07:04 | Emergency (ER) | payer OTHER ==
[~2016-10-25] VITALS: Ht 170.2 cm; Wt 59.0 kg
[~2016-10-25 07:04] MED LIST changes: +BACT400T PO; +CIPR750T2 PO; +INSU0.5M12; +LEVEMIR SQ
[2016-10-25 07:08] VITALS: BP 112/60; PULSE 96; RESP 16; TEMP 98; O2SAT 98
[2016-10-25] MEDS ORDERED: SODIUM CHLOR 0.9% 1000 ML INJ 1,000 ML IV ONE ×2 (07:34→08:04)
[2016-10-25 07:41] VITALS: TEMP 98.2; O2SAT 98
[2016-10-25] MEDS ORDERED: metroNIDAZOLE 500 MG INJ 100 ML IV ONE (07:45)
[2016-10-25] MEDS ORDERED: CIPROFLOXACIN 400 MG PREMIX 200 ML IV ONE (07:45)
[2016-10-25] MEDS ORDERED: SODIUM CHLORIDE 0.9% FLUSH 10 ML FLUSH IVF PRN (07:45)
[2016-10-25] MEDS ORDERED: LINEZOLID 600 MG PREMIX 300 ML IV ONE (07:45)
[2016-10-25] MEDS ORDERED: INSULIN HUMAN REGULAR 1,000 UNITS/10 ML VIAL IV PUSH ONE (07:45)
--- NOTE | 2016-10-25 08:05 | PD ---
HPI Chief Complaint: Diabetic Time Seen by Provider: 07:27 Travel History International Travel<30 days: No Contact w/Intl Traveler<30days: No Traveled to known affect area: No History of Present Illness HPI The patient's 51 years old and arrives privately due to high blood glucose. The patient was admitted here about 10 days ago due to hyperglycemia with a right buttocks wound. He left yesterday AGAINST MEDICAL ADVICE. He states he went home and ate a lot of food. Today he denies shortness of breath chest pain nausea vomiting fever. Wound cultures revealed sensitivity to Zyvox. ID note recommended Zyvox with Cipro and Flagyl. Patient did not take antibiotics after he left the hospital yesterday. Pt has hx IVDA and cocaine abuse. PFSH Past Medical History Hx Anticoagulant Therapy: No Asthma: No Blood Disorders: No Anxiety: No Depression: No Heart Rhythm Problems: No Cancer: No Cardiovascular Problems: Yes Chemotherapy: No Chest Pain: Yes Congestive Heart Failure: No COPD: No Cerebrovascular Accident: Yes Diabetes: Yes Patient Takes Glucophage: No Diminished Hearing: No Endocrine: Yes Gastrointestinal Disorders: No Genitourinary: No Hepatitis: No Hiatal Hernia: No Hypertension: Yes (DOES NOT KNOW IF HE TAKES MEDICINE FOR IT OR NOT) Immune Disorder: No Musculoskeletal: No Neurologic: No Psychiatric: Yes Reproductive: No Respiratory: No Myocardial Infarction: Yes (09/13) Radiation Therapy: No Sleep Apnea: No Thyroid Disease: No Past Surgical History Abdominal Surgery: Yes (R INGUINAL HERNIA REPAIR IN CHILDHOOD) AICD: No Joint Replacement: No Pacemaker: No Other Surgery: Yes (HERNIA REPAIR) Social History Alcohol Use: No (pt denies) Tobacco Use: No (pt denies ) Substance Use: Yes (Cocaine, crack) Allergies-Medications (Allergen,Severity, Reaction): Coded Allergies: *MDRO Multi-Drug Resistant Organism (Verified Adverse Reaction, Unknown, ) MRSA PCR Screen 10/16/16 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, 10/15/16, (back) 10/15/16 Reported Meds & Prescriptions Reported Meds & Active Scripts Active Insulin Syringe/0.5ML/31G X 08/12" 1 Mis Mis 1 Box .ROUTE DIRECTED Levemir Inj (Insulin Detemir) 1,000 unit/ 10 ML Vial 20 Units SQ BID 30 Days Do not mix with any other Insulin. Bactrim (Sulfamethoxazole-Trimethoprim) 400-80 Mg Tab 2 Tab PO BID Ciprofloxacin (Ciprofloxacin HCl) 750 Mg Tab 750 Mg PO BID Furosemide 20 Mg Tab 20 Mg PO DAILY Ergocalciferol 50,000 Unit Cap 50,000 Units PO Q7D Coreg (Carvedilol) 6.25 Mg Tab 6.25 Mg PO Q12HR Aspirin Low Strength (Aspirin) 81 Mg Chew 81 Mg PO DAILY Norvasc (Amlodipine Besylate) 5 Mg Tab 5 Mg PO DAILY Review of Systems Except as stated in HPI: all other systems reviewed are Neg General / Constitutional: No: Fever Skin: Positive Lesions (R buttocks wound) Psychiatric: Positive: Substance Abuse Physical Exam Narrative GENERAL: 51-year-old male thin pleasant SKIN: Warm and dry. On the right buttock there is a stage 3 decubitus ulcer with purulent discharge measuring approximately 7cm in maximum diameter. HEAD: Atraumatic. Normocephalic. EYES: Pupils equal and round. No scleral icterus. No injection or drainage. ENT: No nasal bleeding or discharge. Mucous membranes pink and moist. NECK: Trachea midline. No JVD. CARDIOVASCULAR: Tachycardia. Regular rhythm. RESPIRATORY: No accessory muscle use. Clear to auscultation. Breath sounds equal bilaterally. GASTROINTESTINAL: Abdomen soft, non-tender, nondistended. Hepatic and splenic margins not palpable. MUSCULOSKELETAL: Extremities without clubbing, cyanosis, or edema. No obvious deformities. NEUROLOGICAL: Awake and alert. No obvious cranial nerve deficits. Motor grossly within normal limits. Five out of 5 muscle strength in the arms and legs. Normal speech. PSYCHIATRIC: Appropriate mood and affect; insight and judgment normal. Data Data Last Documented VS Vital Signs Date Time Temp Pulse Resp B/P Pulse Ox O2 Delivery O2 Flow Rate FiO2 10/25/16 07:41 98.2 98 Room Air 10/25/16 07:29 82 20 Orders Complete Blood Count With Diff (10/25/16 07:34) Comprehensive Metabolic Panel (10/25/16 07:34) Beta Hydroxybutyrate (Acetone) (10/25/16 07:34) Lactic Acid (10/25/16 07:34) Urinalysis - C+S If Indicated (10/25/16 07:34) Blood Glucose (10/25/16 07:34) Blood Glucose (10/25/16 08:34) Ecg Monitoring (10/25/16 07:34) Iv Access Insert/Monitor (10/25/16 07:34) Oximetry (10/25/16 07:34) NPO (10/25/16 07:34) Sodium Chlor 0.9% 1000 Ml Inj (Ns 1000 M (10/25/16 07:34) Sodium Chlor 0.9% 1000 Ml Inj (Ns 1000 M (10/25/16 08:04) Sodium Chloride 0.9% Flush (Ns Flush) (10/25/16 07:45) Wound Culture And Gram Stain (10/25/16 07:34) Insulin Human Regular Inj (Novolin R Inj (10/25/16 07:45) Linezolid 600 Mg Premix (Zyvox 600 Mg Pr (10/25/16 07:45) Ciprofloxacin 400 Mg Premix (Cipro 400 M (10/25/16 07:45) Metronidazole 500 Mg Inj (Flagyl 500 Mg (10/25/16 07:45) Vascular Poc Ultrasound (10/25/16 ) Vascular Access Team Consult/P PRN (10/25/16 07:44) Vascular Poc Ultrasound (10/25/16 ) Labs Laboratory Tests Test 10/25/16 10/25/16 07:45 07:55 White Blood Count 9.7 TH/MM3 Red Blood Count 4.51 MIL/MM3 Hemoglobin 11.9 GM/DL Hematocrit 36.1 % Mean Corpuscular Volume 80.1 FL Mean Corpuscular Hemoglobin 26.4 PG Mean Corpuscular Hemoglobin 33.0 % Concent Red Cell Distribution Width 14.4 % Platelet Count 391 TH/MM3 Mean Platelet Volume 8.5 FL Neutrophils (%) (Auto) 61.0 % Lymphocytes (%) (Auto) 22.0 % Monocytes (%) (Auto) 13.3 % Eosinophils (%) (Auto) 2.8 % Basophils (%) (Auto) 0.9 % Neutrophils # (Auto) 5.9 TH/MM3 Lymphocytes # (Auto) 2.1 TH/MM3 Monocytes # (Auto) 1.3 TH/MM3 Eosinophils # (Auto) 0.3 TH/MM3 Basophils # (Auto) 0.1 TH/MM3 CBC Comment DIFF FINAL Differential Comment Sodium Level 134 MEQ/L Potassium Level 4.8 MEQ/L Chloride Level 99 MEQ/L Carbon Dioxide Level 27.7 MEQ/L Anion Gap 7 MEQ/L Blood Urea Nitrogen 18 MG/DL Creatinine 1.20 MG/DL Estimat Glomerular Filtration 77 ML/MIN Rate Random Glucose 374 MG/DL Calcium Level 9.2 MG/DL Total Bilirubin 0.4 MG/DL Aspartate Amino Transf 104 U/L (AST/SGOT) Alanine Aminotransferase 157 U/L (ALT/SGPT) Alkaline Phosphatase 133 U/L Total Protein 7.8 GM/DL Albumin 3.2 GM/DL B-Hydroxybutyrate 0.25 MMOL/L Urine Color YELLOW Urine Turbidity CLEAR Urine pH 6.0 Urine Specific [place] 1.032 Urine Protein TRACE mg/dL Urine Glucose (UA) 1000 mg/dL Urine Ketones NEG mg/dL Urine Occult Blood NEG Urine Nitrite NEG Urine Bilirubin NEG Urine Urobilinogen LESS THAN 2.0 MG/DL Urine Leukocyte Esterase NEG Urine RBC 1 /hpf Urine WBC 2 /hpf Microscopic Urinalysis Comment CULT NOT INDICATED MDM Medical Decision Making Medical Screen Exam Complete: Yes Emergency Medical Condition: Yes Medical Record Reviewed: Yes Differential Diagnosis Infected Decubitus ulcer, DKA, hyperglycemia, renal injury, pneumonia, sepsis Narrative Course Patient returns to the ER with hyperglycemia. His right buttocks decubitus ulcer appears to have purulent discharge. Zyvox Cipro and Flagyl added. The patient received 10 units insulin and 500 cc normal saline. He has a history of CHF. At 820AM the patient requested to leave against medical advice. I met the patient with MIRIAN Dillon present. At that point the patient states he wanted to leave the hospital primarily due to the need to place an IV. He was advised that the IV access team would come to place an ultrasound-guided IV. We discussed the fact of the patient had recently experienced cardiopulmonary arrest and was jin to have survived. The patient verbalized understanding. This raises even further of the risk of the patient's decision to leave AGAINST MEDICAL ADVICE which could lead to a cardiopulmonary arrest outside of the hospital due to any number of factors and as a consequence lead to a prolonged hospital admission, prolonged pain and suffering, disability, dependence on others, change in lifestyle and even . Patient verbalized understanding of all the aforementioned. Patient understands he could return at any time. Unfortunately we could not convince the patient to stay and he ambulate out of the ER at approximately 830AM. Diagnosis Primary Impression: Left against medical advice Referrals: Primary Care Physician 1 day Additional Instructions: PLEASE RETURN TO THE ER RIGHT AWAY SOON YOU'RE WILLING TO RETURN. Med/Other Pt SpecificInfo: No Meds Exist/No RX given Disposition: 07 AGAINST MEDICAL ADVICE Condition: Wilmer Ocampo MD Oct 25, 2016 08:05
[2016-10-25 08:06] LABS: AUTOMATED NEUTROPHIL # 5.9 TH/MM3 (1.8-7.7); BASOPHIL # 0.1 TH/MM3 (0-0.2); BASOPHIL % 0.9 % (0.0-2.0); EOSINOPHIL # 0.3 TH/MM3 (0-0.4); EOSINOPHIL % 2.8 % (0.0-4.0); HEMATOCRIT 36.1 % (39.0-51.0); HEMO FLAGS DIFF FINAL; LYMPHOCYTE # 2.1 TH/MM3 (1.0-4.8); MEAN CELL VOLUME 80.1 FL (80.0-100.0); MEAN CORPUSCULAR HEMOGLOBIN 26.4 PG (27.0-34.0); MONO % 13.3 % (0.0-8.0); PLATELET COUNT 391 TH/MM3 (150-450); RED BLOOD COUNT 4.51 MIL/MM3 (4.50-5.90); RED CELL DISTRIBUTION WIDTH 14.4 % (11.6-17.2); WHITE BLOOD COUNT 9.7 TH/MM3 (4.0-11.0)
[2016-10-25 08:07] LABS: BLOOD, URINE NEG (NEG); GLUCOSE,URINE 1000 mg/dL (NEG); KETONE, URINE NEG (NEG); NITRITE,URINE NEG (NEG); URINE COLOR YELLOW (YELLW/STRAW)
[2016-10-25 08:10] LABS: COMMENT (UR) CULT NOT INDICATED; CULTURE IF INDICATED CULT NOT INDICATED
[2016-10-25 08:31] LABS: ALKALINE PHOSPHATASE 133 U/L (45-117); ALT (GPT) 157 U/L (12-78); ANION GAP 7 MEQ/L (5-15); AST (GOT) 104 U/L (15-37); BETA-HYDROXYBUTYRATE 0.25 MMOL/L (0.00-0.39); BICARBONATE 27.7 MEQ/L (21.0-32.0); BLOOD UREA NITROGEN 18 MG/DL (7-18); CHLORIDE 99 MEQ/L (98-107); GLOMERULAR FILTRATION RATE 77 ML/MIN (>89); SODIUM (NA) 134 MEQ/L (136-145); TOTAL BILIRUBIN ADULT 0.4 MG/DL (0.2-1.0)
[2016-10-25 08:33] LABS: POTASSIUM 4.8 MEQ/L (3.5-5.1)
== END 2016-10-25 08:39 | disposition left against medical advice (07) ==
LOC: NEPE 07:04
DX: E11.65 Type 2 diabetes mellitus with hyperglycemia (principal); L89.319 Pressure ulcer of right buttock, unspecified stage; A49.01 Methicillin susceptible Staphylococcus aureus infection, unspecified site; I50.9 Heart failure, unspecified; I25.2 Old myocardial infarction; Z86.73 Personal history of transient ischemic attack (TIA), and cerebral infarction without residual deficits; Z79.4 Long term (current) use of insulin; Z79.82 Long term (current) use of aspirin; Z79.899 Other long term (current) drug therapy
CPT/HCPCS: 80053; 81001; 82010; 85025; 86403; 87070; 87077; 87186; 87205; 99283

== ENCOUNTER 2016-10-27 03:28 | Inpatient (IN) | payer SELFPAY ==
[~2016-10-27] VITALS: Ht 170.2 cm; Wt 59.0 kg
[2016-10-27 03:30] VITALS: BP 138/85; PULSE 114; RESP 16; TEMP 98.3; O2SAT 96
--- NOTE | 2016-10-27 04:22 | PD ---
HPI Chief Complaint: Wound/Suture/Staple Re-Check Time Seen by Provider: 03:41 Travel History International Travel<30 days: No Contact w/Intl Traveler<30days: No History of Present Illness HPI The patient is a 51 year old male who presents to the [facility] emergency department with a history of severe buttock pain that he reports pain unrelenting this evening. He reports that he tried using crack cocaine without relief. 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 The patient during that hospital admission developed a decubitus ulcer that is since become infected. The patient was recently admitted to the hospital from October 15 through October 24 for treatment. The patient was cared for by wound care and wound VAC was placed on the patient's decubitus wound. The patient unfortunately left AGAINST MEDICAL ADVICE prior to the conclusion of this treatment on October 24. The patient reports that he has not been taking any medications at home. The patient reports that he has one episode of diarrhea daily. The patient otherwise denies having any known fevers, cough, congestion , neck pain, chest pain, shortness of breath, abdominal pain, vomiting, urinary symptoms other than urinary frequency, or neurologic symptoms. [facility] Past Medical History Narrative Medical The patient's past medical history is significant for diabetes mellitus, history of an infected decubitus ulcer, history of cocaine use, history of congestive heart failure with a PEA arrest on September 16, 2016, history of hypertension Hx Anticoagulant Therapy: No Asthma: No Blood Disorders: No Anxiety: No Depression: No Heart Rhythm Problems: No Cancer: No Cardiovascular Problems: Yes ([place] 1 month ago, HTN ) Chemotherapy: No Chest Pain: Yes Congestive Heart Failure: No COPD: No Cerebrovascular Accident: Yes Diabetes: Yes Patient Takes Glucophage: No Diminished Hearing: No Endocrine: Yes Gastrointestinal Disorders: No Genitourinary: No Hepatitis: No Hiatal Hernia: No Hypertension: Yes (DOES NOT KNOW IF HE TAKES MEDICINE FOR IT OR NOT) Immune Disorder: No Musculoskeletal: No Neurologic: No Psychiatric: Yes Reproductive: No Respiratory: No Myocardial Infarction: Yes (09/13) Radiation Therapy: No Sleep Apnea: No Thyroid Disease: No Past Surgical History Narrative Surgical The patient's past surgical history is significant for an inguinal hernia repair as a child. Abdominal Surgery: Yes (R INGUINAL HERNIA REPAIR IN CHILDHOOD) AICD: No Joint Replacement: No Pacemaker: No Other Surgery: Yes (HERNIA REPAIR) Social History Alcohol Use: Yes (OCC) Tobacco Use: No (pt denies ) Substance Use: Yes (Cocaine, crack) Allergies-Medications (Allergen,Severity, Reaction): Coded Allergies: *MDRO Multi-Drug Resistant Organism (Verified Adverse Reaction, Unknown, ) MRSA PCR Screen 10/16/16 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, 10/15/16, (back) 10/15/16 Reported Meds & Prescriptions Reported Meds & Active Scripts Active Insulin Syringe/0.5ML/31G X 08/12" 1 Mis Mis 1 Box .ROUTE DIRECTED Levemir Inj (Insulin Detemir) 1,000 unit/ 10 ML Vial 20 Units SQ BID 30 Days Do not mix with any other Insulin. Bactrim (Sulfamethoxazole-Trimethoprim) 400-80 Mg Tab 2 Tab PO BID Ciprofloxacin (Ciprofloxacin HCl) 750 Mg Tab 750 Mg PO BID Furosemide 20 Mg Tab 20 Mg PO DAILY Ergocalciferol 50,000 Unit Cap 50,000 Units PO Q7D Coreg (Carvedilol) 6.25 Mg Tab 6.25 Mg PO Q12HR Aspirin Low Strength (Aspirin) 81 Mg Chew 81 Mg PO DAILY Norvasc (Amlodipine Besylate) 5 Mg Tab 5 Mg PO DAILY Review of Systems General / Constitutional: No: Fever Eyes: No: Visual changes HENT: No: Headaches Cardiovascular: No: Chest Pain or Discomfort Respiratory: No: Shortness of Breath Gastrointestinal: Positive: Diarrhea, Changes in Bowel Habits, No: Nausea, Vomiting, Abdominal Pain, Hematemesis, Hematochezia, Indigestion, Loss of Appetite Genitourinary: No: Dysuria Musculoskeletal: No: Pain Skin: Positive Other (infected decubitus ulcer) Neurologic: No: Weakness, Focal Abnormalities, Change in Mentation, Slurred Speech, Sensory Disturbance Psychiatric: No: Depression Endocrine: No: Polydipsia Hematologic/Lymphatic: No: Easy Bruising Physical Exam Narrative General: The patient is a well-developed, cachectic appearing male, with frequent lipsmacking noted on examination. Head and Neck exam: Head is normocephalic atraumatic. Eyes: EOMI, pupils are equal round and reactive to light. Nose: Midline septum with pink mucous membranes Mouth: Dentition unremarkable. Moist mucus membranes. Posterior oropharynx is not erythematous. No tonsillar hypertrophy. Uvula midline. Airway patent. Neck: No palpable lymphadenopathy. No nuchal rigidity. No thyromegaly. Cardiovascular: Sinus tachycardia in the 1 teens without murmurs, gallops, or rubs. No pulse deficit to the extremities and simultaneous auscultation and palpation of his radial artery. Lungs: Clear to auscultation bilaterally. No wheezes, rhonchi, or rales. Abdomen: Soft, without tenderness to palpation in all 4 quadrants of the abdomen. No guarding, rebound, or rigidity. Normal bowel sounds are audible. No tenderness on palpation of McBurney's point. Negative Andino's sign. Extremities: No clubbing, cyanosis, or edema. 2+ pulses in all 4 extremities. No calf tenderness on palpation. Back: No costovertebral angle tenderness to palpation. Neurologic Exam: Cranial nerves 2-12 were intact on exam. Strength is 5/5 in all 4 extremities. No sensory deficits noted. Skin Exam: No rash noted. Intact skin that is warm and dry. The patient's decubitus ulcer will be further documented in the nursing record, however on initial arrival the patient is noted to have a 7.5 x 7 cm left buttock involving decubitus ulcer, also involving a small area of the midline over the sacrum. The depth of the wound is approximately 2-1/2 cm. There is a yellow drainage noted. There is a foul odor from the wound. Data Data Last Documented VS Vital Signs Date Time Temp Pulse Resp B/P Pulse Ox O2 Delivery O2 Flow Rate FiO2 10/27/16 05:45 88 16 121/85 95 Room Air 10/27/16 03:30 98.3 Orders Electrocardiogram (10/27/16 04:09) Complete Blood Count With Diff (10/27/16 04:09) B-Type Natriuretic Peptide (10/27/16 04:09) Prothrombin Time / Inr (Pt) (10/27/16 04:09) Act Partial Throm Time (Ptt) (10/27/16 04:09) Blood Culture (10/27/16 04:09) Wound Culture And Gram Stain (10/27/16 04:09) Chest, Single Ap (10/27/16 04:09) Iv Access Insert/Monitor (10/27/16 04:09) Ecg Monitoring (10/27/16 04:09) Oximetry (10/27/16 04:09) Wound Care (10/27/16 04:09) Lactic Acid Sepsis Protocol (10/27/16 04:09) Beta Hydroxybutyrate (Acetone) (10/27/16 04:11) Resp Blood Gas Venous (10/27/16 ) Sodium Chlor 0.9% 1000 Ml Inj (Ns 1000 M (10/27/16 04:30) ^ Mepilex Dressing (10/27/16 04:47) Blood Gas Venous (Vbg) (10/27/16 04:36) Comprehensive Metabolic Panel (10/27/16 04:40) C-Reactive Protein (Crp) (10/27/16 04:40) Lipase (10/27/16 04:40) Magnesium (Mg) (10/27/16 04:40) Troponin I (10/27/16 04:40) Sodium Chlor 0.9% 1000 Ml Inj (Ns 1000 M (10/27/16 05:45) Sodium Chlor 0.9% 1000 Ml Inj (Ns 1000 M (10/27/16 05:45) Ondansetron Inj (Zofran Inj) (10/27/16 05:45) Morphine Inj (Morphine Inj) (10/27/16 05:45) Piperacil-Tazo 3.375 Gm Premix (Zosyn 3. (10/27/16 05:45) Vancomycin Inj (Vancomycin Inj) (10/27/16 05:45) Insulin Human Regular Inj (Novolin R Inj (10/27/16 06:00) Admit Order (Ed Use Only) (10/27/16 06:30) Labs Laboratory Tests Test 10/27/16 10/27/16 04:36 04:40 Blood Gas Puncture Site IV Blood Gas Patient Temperature 98.6 Venous Blood pH 7.29 Venous Blood Partial Pressure 43 mmHg CO2 Venous Blood Partial Pressure 46 mmHg O2 Venous Blood HCO3 20 mmol/L Venous Blood Oxygen Saturation 80 % Venous Blood Oxygen Content 14.5 Vol % Venous Blood Base Excess -5.2 mmol/L Oxygen Delivery Device ROOM AIR Blood Gas Inspired Oxygen 21 % White Blood Count 9.6 TH/MM3 Red Blood Count 4.64 MIL/MM3 Hemoglobin 12.5 GM/DL Hematocrit 36.9 % Mean Corpuscular Volume 79.5 FL Mean Corpuscular Hemoglobin 27.0 PG Mean Corpuscular Hemoglobin 34.0 % Concent Red Cell Distribution Width 14.3 % Platelet Count 415 TH/MM3 Mean Platelet Volume 8.3 FL Neutrophils (%) (Auto) 57.3 % Lymphocytes (%) (Auto) 27.6 % Monocytes (%) (Auto) 9.6 % Eosinophils (%) (Auto) 4.9 % Basophils (%) (Auto) 0.6 % Neutrophils # (Auto) 5.5 TH/MM3 Lymphocytes # (Auto) 2.6 TH/MM3 Monocytes # (Auto) 0.9 TH/MM3 Eosinophils # (Auto) 0.5 TH/MM3 Basophils # (Auto) 0.1 TH/MM3 CBC Comment DIFF FINAL Differential Comment Prothrombin Time 10.6 SEC Prothromb Time International 1.0 RATIO Ratio Activated Partial 24.3 SEC Thromboplast Time Sodium Level 133 MEQ/L Potassium Level 4.6 MEQ/L Chloride Level 98 MEQ/L Carbon Dioxide Level 26.4 MEQ/L Anion Gap 9 MEQ/L Blood Urea Nitrogen 22 MG/DL Creatinine 1.53 MG/DL Estimat Glomerular Filtration 58 ML/MIN Rate Random Glucose 398 MG/DL Lactic Acid Level 1.1 mmol/L Calcium Level 9.1 MG/DL Magnesium Level 2.2 MG/DL Total Bilirubin 0.5 MG/DL Aspartate Amino Transf 121 U/L (AST/SGOT) Alanine Aminotransferase 178 U/L (ALT/SGPT) Alkaline Phosphatase 161 U/L Troponin I LESS THAN 0.02 NG/ML C-Reactive Protein LESS THAN 0.29 MG/DL B-Type Natriuretic Peptide 423 PG/ML Total Protein 7.9 GM/DL Albumin 3.3 GM/DL Lipase 190 U/L B-Hydroxybutyrate 0.13 MMOL/L MDM Medical Decision Making Medical Screen Exam Complete: Yes Emergency Medical Condition: Yes Medical Record Reviewed: Yes Interpretation(s) Last Impressions Chest X-Ray 10/27/16 0409 Signed Impressions: Service Date/Time: Thursday, October 27, 2016 04:07 - CONCLUSION: Noew focal lucent region projected over the right medial lung which may be artifactual. Repeat single view study is recommended. Francesco Corado MD Differential Diagnosis Sepsis related to an infected decubitus ulcer, versus cocaine intoxication, versus DKA, versus other electrolyte arrangements, versus dehydration Narrative Course During the course of the patients emergency department visit, the patients history, examination, and differential diagnosis were reviewed with the patient. The patient had IV access obtained and blood work sent for analysis. The patient states on a court monitor with oximetry and blood pressure monitoring. An ECG was done on arrival. The patient's ECG shows a sinus rhythm heart rate of 90, no acute ST segment elevation is noted. Voltage criteria are met for Left ventricular hypertrophy. The patient was initially provided Zosyn 3.375 g IV, vancomycin 1 g IV. The patient was started on 2 L of normal saline IV fluids. The patient's beta hydroxybutyrate was normal. The patient will be given regular insulin 12 units subcutaneously 1. The patients laboratory studies were reviewed and remarkable for A VBG was done which shows a pH is 7.29, PCO2 43, PO2 46, bicarbonate 20.2. The patient' s white count is 9.6, hemoglobin 12.5, platelets were 15 with 9.6 monocytes, CMP is remarkable for sodium of 133, BUN 22, creatinine 1.53, glucose 398, lactic acid 1.1, AST 121, ALT 178, alkaline phosphatase 161, troponin I is less than 0.02, C-reactive protein is less than 0.29, BNP is 423, lipase 190, PT 10.6 , PTT 24.3, beta hydroxybutyrate is 0.13 Radiology studies were reviewed and remarkable for a chest x-ray that shows a new focal lucent region projected over the right medial lung which may be artifactual, repeat use study is recommended. The repeat x-ray will be ordered. The patient's examination is remarkable for a full breath sounds bilaterally, therefore I do not suspect any new respiratory issue. The patient signed out AGAINST MEDICAL ADVICE from the residence service 3 days ago. I did speak to the residents regarding this patient's case for readmission , however they report that the patient will not be accepted back to their service by their attending, Dr. Villa, as he was a difficult patient. The patient's case was discussed with Dr. Folr, who did agree to admit the patient for further evaluation and treatment at this time. Critical Care Narrative Aggregate critical care time was 33 minutes. Time to perform other separately billable procedures was not included in the critical care time. My time did not include minutes spent treating any other patients simultaneously or on activities that did not directly contribute to the patient's treatment. The services I provided to this patient were to treat and/or prevent clinically significant deterioration that could result in: Respiratory failure from excessive fluid resuscitation, versus cardiovascular collapse I provided critical care services requiring my management, as noted below: Chart data review, documentation time, medication orders and management, vital sign assessments/reviewing monitor data, ordering and reviewing lab tests, ordering and interpreting/reviewing x-rays and diagnostic studies, care of the patient and discussion of the patient with the admitting physicians. Sepsis Criteria SIRS Criteria (2 or more): Heart rate over 90, WBC > 36324, < 4000 or > 10% bands Sepsis Criteria (SIRS+source): Infect source susp/known Physician Communication Physician Communication I spoke to the [facility] residen, Dr. Post, at 6:30 AM regarding this patient's case. She explained that the attending, Dr. Villa refused to admit the patient again to the [facility] resident service as the patient left AGAINST MEDICAL ADVICE and was difficult. A call was placed out to the [facility] service for admission. Diagnosis Primary Impression: Infected decubitus ulcer Qualified Code: L89.90 - Infected decubitus ulcer, unspecified pressure ulcer stage Additional Impressions: Hyperglycemia Sepsis Qualified Code: A41.9 - Sepsis, due to unspecified organism Crack cocaine use Admitting Information Admitting Physician Requests: Dipika Saini MD Oct 27, 2016 04:22
[2016-10-27] MEDS ORDERED: SODIUM CHLOR 0.9% 1000 ML INJ 1,000 ML IV ONE ×3 (04:30→05:45)
[2016-10-27 04:53] LABS: BLOOD GAS VENOUS BASE EXCESS -5.2 mmol/L (-2-2); BLOOD GAS VENOUS HCO3 20 mmol/L (22-26); BLOOD GAS VENOUS O2 CONTENT 14.5 Vol % (9.0-17.0); BLOOD GAS VENOUS O2 HGB SAT 80 % (70-76); BLOOD GAS VENOUS PCO2 43 mmHg (44-48); BLOOD GAS VENOUS PO2 46 mmHg (35-40); BLOOD GAS VENOUS pH 7.29 (7.360-7.400); CRITICAL VALUE YES; DRAW SITE IV; FIO2 21 %; OXYGEN DEVICE ROOM AIR; STAT YES; TEMP CORR TO 98.6
--- NOTE | 2016-10-27 05:07 | RADRPT ---
EXAM DATE/TIME: 10/27/2016 04:07 [facility] COMPARISON: CHEST SINGLE AP, September 19, 2016, 9:33. INDICATIONS : Pt has open wound to right buttock and is unable to sit down due to pain and possible infection. MEDICAL HISTORY : Diabetes mellitus type II. Myocardial infarction. Hypertension. TIA SURGICAL HISTORY : None. ENCOUNTER: Initial ACUITY: 3 days PAIN SCORE: 8/10 LOCATION: Bilateral chest FINDINGS: A single view of the chest demonstrates the lungs to be symmetrically aerated without evidence of mas s, infiltrate or effusion. There is a new focal lucent region projected over the right medial lung w hich may be artifactual. The cardiomediastinal contours are unremarkable. Osseous structures are int act. CONCLUSION: Noew focal lucent region projected over the right medial lung which may be artifactual. Repeat single view study is recommended. Francesco Corado MD on October 27, 2016 at 5:03 Board Certified Radiologist. This report was verified electronically.
[2016-10-27 05:10] LABS: AUTOMATED NEUTROPHIL # 5.5 TH/MM3 (1.8-7.7); BASOPHIL # 0.1 TH/MM3 (0-0.2); BASOPHIL % 0.6 % (0.0-2.0); EOSINOPHIL # 0.5 TH/MM3 (0-0.4); EOSINOPHIL % 4.9 % (0.0-4.0); HEMATOCRIT 36.9 % (39.0-51.0); HEMO FLAGS DIFF FINAL; LYMPH % 27.6 % (9.0-44.0); LYMPHOCYTE # 2.6 TH/MM3 (1.0-4.8); MEAN CELL VOLUME 79.5 FL (80.0-100.0); MONO % 9.6 % (0.0-8.0); NEUT % 57.3 % (16.0-70.0); PLATELET COUNT 415 TH/MM3 (150-450); RED BLOOD COUNT 4.64 MIL/MM3 (4.50-5.90); RED CELL DISTRIBUTION WIDTH 14.3 % (11.6-17.2); WHITE BLOOD COUNT 9.6 TH/MM3 (4.0-11.0)
[2016-10-27 05:26] LABS: ANION GAP 9 MEQ/L (5-15); APTT (PATIENT) 24.3 SEC (24.3-30.1); BICARBONATE 26.4 MEQ/L (21.0-32.0); BLOOD UREA NITROGEN 22 MG/DL (7-18); CHLORIDE 98 MEQ/L (98-107); GLOMERULAR FILTRATION RATE 58 ML/MIN (>89); MAGNESIUM 2.2 MG/DL (1.5-2.5); POTASSIUM 4.6 MEQ/L (3.5-5.1); PROTHROMBIN TIME - PATIENT 10.6 SEC (9.8-11.6); SODIUM (NA) 133 MEQ/L (136-145)
[2016-10-27 05:28] LABS: ALT (GPT) 178 U/L (12-78); AST (GOT) 121 U/L (15-37)
[2016-10-27 05:30] LABS: ALKALINE PHOSPHATASE 161 U/L (45-117); BETA-HYDROXYBUTYRATE 0.13 MMOL/L (0.00-0.39); TOTAL BILIRUBIN ADULT 0.5 MG/DL (0.2-1.0)
[2016-10-27 05:45] VITALS: BP 121/85; PULSE 88; RESP 16; O2SAT 95
[2016-10-27] MEDS ORDERED: MORPHINE SULFATE 4 MG/ML INJ IV PUSH ONE (05:45)
[2016-10-27] MEDS ORDERED: PIPERACIL-TAZO 3.375 GM PREMIX 50 ML IV ONE (05:45)
[2016-10-27] MEDS ORDERED: ONDANSETRON HCL 4 MG/2 ML VIAL IV ONE (05:45)
[2016-10-27] MEDS ORDERED: VANCOMYCIN INJ 1,000 MG in SODIUM CHLOR 0.9% 250 ML INJ 250 ML IV ONE (05:45)
[2016-10-27] MEDS ORDERED: INSULIN HUMAN REGULAR 1,000 UNITS/10 ML VIAL SQ ONE (06:00)
[2016-10-27] MEDS ORDERED: ONDANSETRON HCL 4 MG/2 ML VIAL IVP PRN (06:45)
[2016-10-27] MEDS ORDERED: SENNOSIDES 8.6 MG TAB PO PRN (06:45)
[2016-10-27] MEDS ORDERED: ACETAMINOPHEN 325 MG TAB PO PRN (06:45)
[2016-10-27] MEDS ORDERED: BISACODYL 10 MG SUPP RECTAL PRN (06:45)
[2016-10-27] MEDS ORDERED: Vancomycin Consult Pharmacy 1 EA OTHER SCH (06:45)
[2016-10-27] MEDS ORDERED: MAGNESIUM HYDROXIDE SUSP 30 ML CUP PO PRN (06:45)
[2016-10-27] MEDS ORDERED: SODIUM CHLORIDE 0.9% FLUSH 10 ML FLUSH IV FLUSH PRN (06:45)
[2016-10-27] MEDS ORDERED: DEXTROSE 50% IN WATER 50 ML VIAL(D50) IV PRN (06:45)
[2016-10-27] MEDS ORDERED: GLUCAGON 1 MG/ML VIAL OTHER PRN (06:45)
[2016-10-27] MEDS ORDERED: LACTULOSE SYRUP 20 GM/30 ML CUP PO PRN (06:45)
[2016-10-27] MEDS: INSULIN ASPART SUPPLEMENTAL SCALE SQ SCH ×4 (07:39→19:54)
--- NOTE | 2016-10-27 08:00 | RADRPT ---
EXAM DATE/TIME: 10/27/2016 07:50 [facility] COMPARISON: CHEST SINGLE AP, October 27, 2016, 4:07. INDICATIONS : Coughing, infected decubitus ulcer on buttocks MEDICAL HISTORY : decubitus ulcer on buttocks SURGICAL HISTORY : ENCOUNTER: Initial ACUITY: 3 days PAIN SCORE: 10/10 LOCATION: Bilateral chest FINDINGS: AP and lateral views of the chest demonstrate a normal-sized cardiac silhouette. There is no effusion , consolidation, or pneumothorax. The bones and soft tissues demonstrate no acute abnormality. The fi nding described on the prior study is no longer visualized, indicating that it was secondary to artif act. CONCLUSION: No acute cardiopulmonary abnormality is identified. Marcos Rebolledo MD on October 27, 2016 at 7:56 Board Certified Radiologist. This report was verified electronically.
[2016-10-27] MEDS: SODIUM CHLORIDE 0.9% FLUSH 10 ML FLUSH IV FLUSH SCH ×2 (09:00→19:52)
[2016-10-27] MEDS: CEFEPIME INJ 1,000 MG in SODIUM CHLORIDE 0.9% INJ 100 ML IV SCH ×2 (09:00→19:56)
[2016-10-27] MEDS: DOCUSATE SODIUM 50 MG/SENNA 8.6 MG TAB PO SCH ×2 (09:00→19:52)
[2016-10-27] MEDS: ASPIRIN 81 MG CHEW TAB PO SCH (09:01)
[2016-10-27] MEDS: amLODIPine BESYLATE 5 MG TAB PO SCH (09:01)
[2016-10-27] MEDS: CARVEDILOL 6.25 MG TAB PO SCH ×2 (09:01→19:52)
--- NOTE | 2016-10-27 09:01 | HHI.HP ---
HPI Service [facility] Hospitalists Primary Care Physician No Primary Care Physician Admission Diagnosis Infected decubitus ulcer Diagnoses: Chief Complaint: Infected buttock wound Severe buttock pain Travel History International Travel<30 Days: No Contact w/Intl Traveler <30 Da: No Traveled to Known Affected Are: No History of Present Illness Written by Karo Freed PA-C acting as scribe for Dr. Ventura on 10/27/16 at 09:01. This is a 51-year-old male with a past medical history significant for hepatitis C, CHF with EF of 35-40%, cardiomyopathy, history of infected decubitus ulcer treated at this facility October 15 the with application of wound VAC and IV antibiotics followed by infectious disease but left AMA, diabetes, hypertension, history of PEA arrest 09/16/16 due to cocaine use and current substance abuse with cocaine and crack cocaine who presents to [facility] with complaints of severe unrelenting buttock pain. Patient is not very cooperative at this time and will only answer a few questions verbally and a few others by shaking his head yes or no but otherwise will not answer any questions. Therefore, history is obtained from review of the medical record as well. Per ED record, patient tried using crack cocaine for his severe buttock pain without relief. He reports he has not been taking any of his medications at home. He denies any fever or chills. Denies any nausea, vomiting, chest pain, shortness of breath or abdominal pain. Denies any urinary complaints. Prior to leaving [facility] 3 days ago, patient was under the resident service but they have refused readmission due to him being a difficult patient and leaving AGAINST MEDICAL ADVICE. Review of Systems Attempted but unsuccessful due to patient's lack of response Past Family Social History Past Medical History History of infected decubitus ulcer with cultures growing MRSA, enterococcus Faecalis and enterococcusfaecium VRE admitted October 15- status post application of wound VAC but patient left AMA Hepatitis C Systolic CHF - EF 35-40%, mod-severe MR, Mild TR by echocardiogram 09/16/16 Cardiomyopathy Hypertension Diabetes History of PEA arrest 09/16/16 secondary to cocaine use Substance abuse with current use of crack cocaine Past Surgical History Application of wound VAC infected decubitus ulcer Bilateral inguinal hernia repair 06/2013 Reported Medications Insulin Syringe/0.5ML/31G X 5/16" 1 Mis Mis 1 Box .ROUTE DIRECTED Levemir Inj (Insulin Detemir) 1,000 unit/ 10 ML Vial 20 Units SQ BID 30 Days Do not mix with any other Insulin. Bactrim (Sulfamethoxazole-Trimethoprim) 400-80 Mg Tab 2 Tab PO BID Ciprofloxacin (Ciprofloxacin HCl) 750 Mg Tab 750 Mg PO BID Furosemide 20 Mg Tab 20 Mg PO DAILY Ergocalciferol 50,000 Unit Cap 50,000 Units PO Q7D Coreg (Carvedilol) 6.25 Mg Tab 6.25 Mg PO Q12HR Aspirin Low Strength (Aspirin) 81 Mg Chew 81 Mg PO DAILY Norvasc (Amlodipine Besylate) 5 Mg Tab 5 Mg PO DAILY Allergies: Coded Allergies: *MDRO Multi-Drug Resistant Organism (Verified Adverse Reaction, Unknown, ) MRSA PCR Screen 10/16/16 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, 10/15/16, (back) 10/15/16 Active Ordered Medications Current Medications Medications (Trade) Dose Ordered Sig/Joshua Route Start Time Stop Time Status Last Admin (D50w (Vial) Inj) 50 ml UNSCH PRN IV 10/27/16 06:45 Glucagon 1 mg 1 mg UNSCH PRN OTHER 10/27/16 06:45 Pharmacy Profile Note 0 ml @ 0 mls/hr UNSCH OTHER 10/27/16 06:45 (Maxipime Inj/NS Inj) 100 ml @ 200 mls/hr Q12H IV 10/27/16 09:00 (NS Flush) 2 ml UNSCH PRN IV FLUSH 10/27/16 06:45 (NS Flush) 2 ml BID IV FLUSH 10/27/16 09:00 (Zofran Inj) 4 mg Q6H PRN IVP 10/27/16 06:45 (Tylenol) 650 mg Q6H PRN PO 10/27/16 06:45 (Roxicodone) 5 mg Q4H PRN PO 10/27/16 06:45 (Rula-Colace) 1 tab BID PO 10/27/16 09:00 (Milk Of Magnesia Liq) 30 ml Q12H PRN PO 10/27/16 06:45 (Senokot) 17.2 mg Q12H PRN PO 10/27/16 06:45 (Dulcolax Supp) 10 mg DAILY PRN RECTAL 10/27/16 06:45 (Lactulose Liq) 30 ml DAILY PRN PO 10/27/16 06:45 (Norvasc) 5 mg DAILY PO 10/27/16 09:00 (Aspirin Chew) 81 mg DAILY PO 10/27/16 09:00 (Coreg) 6.25 mg Q12HR PO 10/27/16 09:00 (Lasix) 20 mg DAILY PO 10/27/16 09:00 (Levemir Inj) 20 units BID SQ 10/27/16 09:00 (Roxicodone) 10 mg Q4H PRN PO 10/27/16 07:27 Family History Attempted unattainable due to patient's lack of response Social History Patient has a previous tobacco use history but quit per his report. Unable to obtain specifics due to patient's lack of response. Unable to obtain any further social history due to patient's uncooperativeness. Physical Exam Vital Signs Vital Signs Date Time Temp Pulse Resp B/P Pulse Ox O2 Delivery O2 Flow Rate FiO2 10/27/16 05:45 88 16 121/85 95 Room Air 10/27/16 03:30 98.3 114 16 138/85 96 Room Air Physical Exam GENERAL: This is a well-nourished, well-developed patient, in no apparent distress. Lying in hospital bed. Awake and alert. Uncooperative and only answer a few of the questions that are asked. SKIN: Positive for a large 7x7 centimeter decubitus ulcer over the left buttock. Patient is also noted to have skin breakdown over the left heel. HEAD: Atraumatic. Normocephalic. EYES: Extraocular motions intact. No scleral icterus. No injection or drainage. ENT: Nose without bleeding or purulent drainage. NECK: Trachea midline. No lymphadenopathy. Supple, nontender, no meningeal signs. CARDIOVASCULAR: Regular rate and rhythm without murmurs, gallops, or rubs. RESPIRATORY: Clear to auscultation. Breath sounds equal bilaterally. No wheezes , rales, or rhonchi. GASTROINTESTINAL: Abdomen soft, non-tender, nondistended. No hepato-splenomegaly , or palpable masses. No guarding. MUSCULOSKELETAL: Extremities without clubbing, cyanosis, or edema. No joint tenderness, effusion, or edema noted. No calf tenderness. NEUROLOGICAL: Awake and alert. Able to move all extremities. Normal speech. Laboratory Laboratory Tests Test 10/27/16 10/27/16 04:36 04:40 Blood Gas Puncture Site IV Blood Gas Patient Temperature 98.6 Venous Blood pH 7.29 Venous Blood Partial Pressure 43 CO2 Venous Blood Partial Pressure 46 O2 Venous Blood HCO3 20 Venous Blood Oxygen Saturation 80 Venous Blood Oxygen Content 14.5 Venous Blood Base Excess -5.2 Oxygen Delivery Device ROOM AIR Blood Gas Inspired Oxygen 21 White Blood Count 9.6 Red Blood Count 4.64 Hemoglobin 12.5 Hematocrit 36.9 Mean Corpuscular Volume 79.5 Mean Corpuscular Hemoglobin 27.0 Mean Corpuscular Hemoglobin 34.0 Concent Red Cell Distribution Width 14.3 Platelet Count 415 Mean Platelet Volume 8.3 Neutrophils (%) (Auto) 57.3 Lymphocytes (%) (Auto) 27.6 Monocytes (%) (Auto) 9.6 Eosinophils (%) (Auto) 4.9 Basophils (%) (Auto) 0.6 Neutrophils # (Auto) 5.5 Lymphocytes # (Auto) 2.6 Monocytes # (Auto) 0.9 Eosinophils # (Auto) 0.5 Basophils # (Auto) 0.1 CBC Comment DIFF FINAL Differential Comment Prothrombin Time 10.6 Prothromb Time International 1.0 Ratio Activated Partial 24.3 Thromboplast Time Sodium Level 133 Potassium Level 4.6 Chloride Level 98 Carbon Dioxide Level 26.4 Anion Gap 9 Blood Urea Nitrogen 22 Creatinine 1.53 Estimat Glomerular Filtration 58 Rate Random Glucose 398 Lactic Acid Level 1.1 Calcium Level 9.1 Magnesium Level 2.2 Total Bilirubin 0.5 Aspartate Amino Transf 121 (AST/SGOT) Alanine Aminotransferase 178 (ALT/SGPT) Alkaline Phosphatase 161 Troponin I LESS THAN 0.02 C-Reactive Protein LESS THAN 0.29 B-Type Natriuretic Peptide 423 Total Protein 7.9 Albumin 3.3 Lipase 190 B-Hydroxybutyrate 0.13 Date/Time Procedure Status Source Growth 10/27/16 04:40 Aerobic Blood Culture Received Blood Peripheral Pending 10/27/16 04:40 Anaerobic Blood Culture Received Blood Peripheral Pending 10/27/16 04:35 Gram Stain Received Wound Buttock Pending 10/27/16 04:35 Wound Culture Received Wound Buttock Pending Result Diagram: 10/27/160 10/27/16439 Imaging Last Impressions Chest X-Ray 10/27/16720 Signed Impressions: Service Date/Time: Thursday, October 27, 2016 07:50 - CONCLUSION: No acute cardiopulmonary abnormality is identified. Marcos Rebolledo MD Assessment and Plan Assessment and Plan 51-year-old male with a past medical history significant for hepatitis C, CHF with EF of 35-40%, cardiomyopathy, history of infected decubitus ulcer treated at this facility October 15 with application of wound VAC and IV antibiotics followed by infectious disease but left AMA, diabetes, hypertension , history of PEA arrest 09/16/16 due to cocaine use and current substance abuse with cocaine and crack cocaine who presents to [facility] with complaints of severe unrelenting buttock pain. Large decubitus ulcer History of infected decubitus ulcer with cultures growing MRSA, enterococcus Faecalis and enterococcusfaecium VRE admitted October 15- status post application of wound VAC and IV antibiotics but patient left AMA Homeless - IV antibiotics with Cefepime and Vancomycin - Consult wound care - Consult case management - Pain management Hepatitis C - Not candidate for treatment secondary to current crack and cocaine use - maintain standard precautions Systolic CHF - EF 35-40%, mod-severe MR, Mild TR by echocardiogram 09/16/16 - not an acute exacerbation History of PEA arrest 09/16/16 secondary to cocaine use Cardiomyopathy Hypertension - Resume home medications including Coreg 6.25mg po BID, Lasix 20mg daily, Norvasc 5mg daily and ASA 81mg daily - monitor BP Diabetes - diabetic diet - resume home insulin 20u BID - Accu-Chek - Insulin sliding scale Substance abuse - actively using crack cocaine - counseled on cessation DVT prophylaxis - Bilateral SCD/SARKIS hose This note was transcribed by rodolfo Freed PA-C. I, Dr. Catrachito Ventura personally performed the history, physical exam, and medical decision making; and confirmed the accuracy of the information in the transcribed note. Authenticated by Dr. Catrachito Ventura on 10/27/16 at 11:01. Discussed Condition With Patient, nursing staff and ED physician Physician Certification 2 Midnight Certification Type: Admission for Inpatient Services Order for Inpatient Services The services are ordered in accordance with Medicare regulations or non- Medicare payer requirements, as applicable. In the case of services not specified as inpatient-only, they are appropriately provided as inpatient services in accordance with the 2-midnight benchmark. Estimated LOS (days): 3 3 days is the estimated time the patient will need to remain in the hospital, assuming treatment plan goals are met and no additional complications. Post-Hospital Plan: Not yet determined Karo Freed Oct 27, 2016 09:01 Catrachito Ventura MD Oct 27, 2016 11:01
[2016-10-27] MEDS: INSULIN DETEMIR 100 UNITS/ML VIAL SQ SCH ×2 (09:12→19:55)
[2016-10-27] MEDS: FUROSEMIDE 20 MG TAB PO SCH (10:26)
[2016-10-27 12:00] VITALS: BP 121/75; PULSE 68; RESP 18; TEMP 96.6; O2SAT 98
--- NOTE | 2016-10-27 14:16 | EKG ---
Date Performed: 10/27/2016 Time Performed: 06:36:57 PTAGE: 51 years EKG: Sinus rhythm LEFT VENTRICULAR HYPERTROPHY AND ST-T CHANGE ABNORMAL ECG Compared to prior tracing no significant c kevin PREVIOUS TRACING : 10/15/2016 22.30 DOCTOR: Isacc Arita Interpretating Date/Time 10/27/2016 14:12:57
[2016-10-27 16:00] VITALS: BP 134/77; PULSE 67; RESP 16; TEMP 95.7; O2SAT 95
[2016-10-27 20:00] VITALS: BP 139/77; PULSE 84; RESP 18; TEMP 97.6; O2SAT 96
[2016-10-28] VITALS: BP 123/65; PULSE 60; RESP 16; TEMP 97.8; O2SAT 99
[2016-10-28 05:58] LABS: AUTOMATED NEUTROPHIL # 3.2 TH/MM3 (1.8-7.7); BASOPHIL % 0.6 % (0.0-2.0); EOSINOPHIL # 0.4 TH/MM3 (0-0.4); EOSINOPHIL % 6.3 % (0.0-4.0); HEMATOCRIT 36.1 % (39.0-51.0); HEMO FLAGS DIFF FINAL; LYMPH % 29.9 % (9.0-44.0); LYMPHOCYTE # 1.8 TH/MM3 (1.0-4.8); MEAN CELL VOLUME 79.4 FL (80.0-100.0); MEAN CORPUSCULAR HEMOGLOBIN 25.8 PG (27.0-34.0); MEAN CORPUSCULAR HGB CONC 32.5 % (32.0-36.0); MONO % 10.9 % (0.0-8.0); NEUT % 52.3 % (16.0-70.0); PLATELET COUNT 348 TH/MM3 (150-450); RED BLOOD COUNT 4.54 MIL/MM3 (4.50-5.90); RED CELL DISTRIBUTION WIDTH 14.3 % (11.6-17.2); WHITE BLOOD COUNT 6.1 TH/MM3 (4.0-11.0)
[2016-10-28 06:06] LABS: ALKALINE PHOSPHATASE 111 U/L (45-117); ALT (GPT) 111 U/L (12-78); ANION GAP 10 MEQ/L (5-15); AST (GOT) 59 U/L (15-37); BICARBONATE 26.2 MEQ/L (21.0-32.0); BLOOD UREA NITROGEN 15 MG/DL (7-18); CHLORIDE 100 MEQ/L (98-107); GLOMERULAR FILTRATION RATE 144 ML/MIN (>89); POTASSIUM 3.7 MEQ/L (3.5-5.1); SODIUM (NA) 136 MEQ/L (136-145); TOTAL BILIRUBIN ADULT 0.4 MG/DL (0.2-1.0)
[2016-10-28] MEDS: INSULIN ASPART SUPPLEMENTAL SCALE SQ SCH ×4 (06:21→21:00)
[2016-10-28] MEDS ORDERED: VANCOMYCIN 1,000 MG/NS 250 ML IV SCH ×4 (07:00→18:00)
[2016-10-28] MEDS: FUROSEMIDE 20 MG TAB PO SCH (07:24)
[2016-10-28] MEDS: DOCUSATE SODIUM 50 MG/SENNA 8.6 MG TAB PO SCH ×2 (07:24→21:10)
[2016-10-28] MEDS: CEFEPIME INJ 1,000 MG in SODIUM CHLORIDE 0.9% INJ 100 ML IV SCH ×2 (07:25→21:06)
[2016-10-28] MEDS: SODIUM CHLORIDE 0.9% FLUSH 10 ML FLUSH IV FLUSH SCH ×2 (07:25→21:00)
[2016-10-28] MEDS: ASPIRIN 81 MG CHEW TAB PO SCH (07:26)
[2016-10-28] MEDS: CARVEDILOL 6.25 MG TAB PO SCH ×2 (07:26→21:10)
[2016-10-28] MEDS: amLODIPine BESYLATE 5 MG TAB PO SCH (07:26)
[2016-10-28] MEDS: INSULIN DETEMIR 100 UNITS/ML VIAL SQ SCH ×2 (07:30→21:18)
[2016-10-28 08:00] VITALS: BP 113/74; PULSE 75; RESP 17; TEMP 96.9; O2SAT 96
[2016-10-28 12:00] VITALS: BP 107/69; PULSE 58; RESP 17; TEMP 97.4; O2SAT 97
--- NOTE | 2016-10-28 14:44 | HHI.PR ---
Subjective Remarks Follow up buttock wound infection. Patient states that his pain is well controlled. Denies chest pain, dyspnea. No other complaints at this time. Objective Vitals Vital Signs Date Time Temp Pulse Resp B/P Pulse Ox O2 Delivery O2 Flow Rate FiO2 10/28/16 12:00 97.4 58 17 107/69 97 10/28/16 08:00 96.9 75 17 113/74 96 10/28/16 00:00 97.8 60 16 123/65 99 10/27/16 20:00 97.6 84 18 139/77 96 10/27/16 16:00 95.7 67 16 134/77 95 I/O 10/27/16 10/27/16 10/27/16 10/28/16 10/28/16 10/28/16 07:00 15:00 23:00 07:00 15:00 23:00 Intake Total 960 ml 300 ml Balance 960 ml 300 ml Intake Oral 960 ml IV Total 300 ml # Voids 2 0 1 # Bowel Movements 0 Result Diagram: 10/28/1641910/28/16419 Imaging Last Impressions Chest X-Ray 10/27/16720 Signed Impressions: Service Date/Time: Thursday, October 27, 2016 07:50 - CONCLUSION: No acute cardiopulmonary abnormality is identified. Marcos Rebolledo MD Objective Remarks General: No acute distress. Heart: Regular rate and rhythm. No murmur. Lungs: Clear to auscultation bilaterally. No wheezes, rales, or rhonchi. Breathing is nonlabored. Abdomen: Soft, nontender, nondistended. Extremities: No lower extremity edema. Psych: Alert and oriented. Skin: 7 cm x 7 cm decubitus ulcer over the left buttock. Procedures None Urinary Catheter: No Vascular Central Line Catheter: No A/P Problem List: (1) Decubitus ulcer of right buttock, unstageable ICD Code: L89.310 Status: Acute (2) Hepatitis C ICD Code: B19.20 Status: Acute (3) CHF (congestive heart failure) ICD Code: I50.9 Status: Chronic (4) Cocaine abuse ICD Code: F14.10 Status: Chronic (5) Diabetes mellitus ICD Code: E11.9 Status: Chronic Assessment and Plan 1. Large decubitus ulcer, right buttock: Culture positive for MRSA. Previous culture growing MRSA, VRE. Wound VAC had been applied on previous hospitalization. Patient left AGAINST MEDICAL ADVICE. He reports that his pain is currently well controlled. There is no plastic surgeon or wound care physician on-call at this time. Will need to discuss the possibility of transfer for surgical intervention. Continue antibiotics as previously ordered ( Zyvox, Flagyl, ciprofloxacin). 2. Hepatitis C: Not a candidate for treatment secondary to ongoing cocaine abuse. 3. Chronic systolic congestive heart failure: Echocardiogram 09/16/16 shows EF 35 -40%. History of PEA arrest secondary to cocaine use. 4. Diabetes mellitus: Continue diabetic diet. Monitor Accu-Cheks and cover with sliding scale insulin. Continue Levemir 20 units twice a day. 5. Substance abuse: Patient counseled on cessation of crack cocaine use. 6. DVT prophylaxis: SARKIS Lambert. Problem Qualifiers (1) CHF (congestive heart failure): Catrachito Ventura MD Oct 28, 2016 14:44
[2016-10-28 16:00] VITALS: BP 129/86; PULSE 61; RESP 17; TEMP 97.9; O2SAT 98
[2016-10-28] MEDS: metroNIDAZOLE 500 MG TAB PO SCH ×2 (16:35→21:11)
[2016-10-28] MEDS: LINEZOLID 600 MG PREMIX 300 ML IV SCH (16:35)
--- NOTE | 2016-10-28 18:01 | PD.WCN.NOT ---
Wound Consult Description: R buttock and medial gluteal cleft stage 4 pressure injury Communicated with: MIRIAN Cassidy , Call placed to Doctor Audrey for orders Recommendation: Please cleanse wound to R buttock and medial gluteal cleft with normal saline and apply 0.125% Dakin's moistened gauze packed into wound bed and cover with dry cover dressing. Please change dakins wet to dry dressing BID.Apply skin prep to periwound and before applying adhesive to skin. Additional Information: Patient seen on earlier for evaluation of wound management to buttock area. Patient able to position self to prone for wound assessment.Patient is known to wound inpatient wound care. Removed dressing and packing in place to reveal wound to R buttock and medial gluteal cleft. Wound bed presents with ~50 % red granulation tissue, ~40% yellow loosely adherent slough, and ~10% hypergranulated tissue.Wound has moderate sero-sanguinous drainage with mild odor. Periwound presents with scar tissue. but is other rizzo unremarkable. Wound measures 8 cm x 7.8 cm x ~2.3 cm with slough at the base. Undermining is noted between 1 and 5 o'clock, deepest at 1 o'clock at 5.4 cm . Wound margins are poorly defined between 6 and 12 o'clock. Well defined sharp wound margins are noted between 1 and 5 o'clock.Cleansed wound with normal saline and applied Maxorb II (Calcium alginate) dressing packed into wound bed and covered with adhesive foam dressing. Britney Alanis [facility] Oct 28, 2016 18:01
[2016-10-28 20:00] VITALS: BP 121/72; PULSE 65; RESP 18; TEMP 97.2; O2SAT 95
[2016-10-28] MEDS: CIPROFLOXACIN 750 MG TAB PO SCH (21:10)
[2016-10-29] VITALS: BP 126/95; PULSE 79; RESP 18; TEMP 97.6; O2SAT 99
[2016-10-29] MEDS: LINEZOLID 600 MG PREMIX 300 ML IV SCH ×2 (04:31→17:39)
[2016-10-29] MEDS: metroNIDAZOLE 500 MG TAB PO SCH ×3 (04:31→21:19)
[2016-10-29] MEDS: INSULIN ASPART SUPPLEMENTAL SCALE SQ SCH ×4 (06:47→21:00)
[2016-10-29 08:00] VITALS: BP 115/90; PULSE 86; RESP 20; TEMP 98.2; O2SAT 100
[2016-10-29] MEDS: CIPROFLOXACIN 750 MG TAB PO SCH ×2 (08:59→21:19)
[2016-10-29] MEDS: CARVEDILOL 6.25 MG TAB PO SCH ×2 (08:59→21:19)
[2016-10-29] MEDS: ASPIRIN 81 MG CHEW TAB PO SCH (09:00)
[2016-10-29] MEDS: SODIUM CHLORIDE 0.9% FLUSH 10 ML FLUSH IV FLUSH SCH ×2 (09:00→21:00)
[2016-10-29] MEDS: amLODIPine BESYLATE 5 MG TAB PO SCH (09:00)
[2016-10-29] MEDS: CEFEPIME INJ 1,000 MG in SODIUM CHLORIDE 0.9% INJ 100 ML IV SCH ×2 (09:00→21:18)
[2016-10-29] MEDS: FUROSEMIDE 20 MG TAB PO SCH (09:00)
[2016-10-29] MEDS: DOCUSATE SODIUM 50 MG/SENNA 8.6 MG TAB PO SCH ×2 (09:00→21:00)
[2016-10-29] MEDS: INSULIN DETEMIR 100 UNITS/ML VIAL SQ SCH ×2 (09:04→21:00)
--- NOTE | 2016-10-29 10:55 | HHI.PR ---
Subjective Remarks Follow up decubitus ulcer. Patient states that he feels a little better than yesterday. No chest pain, dyspnea, nausea, vomiting. Objective Vitals Vital Signs Date Time Temp Pulse Resp B/P Pulse Ox O2 Delivery O2 Flow Rate FiO2 10/29/16 08:00 98.2 86 20 115/90 100 10/29/16 00:00 97.6 79 18 126/95 99 10/28/16 20:00 97.2 65 18 121/72 95 10/28/16 16:00 97.9 61 17 129/86 98 10/28/16 12:00 97.4 58 17 107/69 97 I/O 10/28/16 10/28/16 10/28/16 10/29/16 10/29/16 10/29/16 07:00 15:00 23:00 07:00 15:00 23:00 Intake Total 1020 ml 360 ml Output Total 1200 ml Balance 1020 ml -840 ml Intake Oral 720 ml 360 ml IV Total 300 ml Output Urine Total 1200 ml # Voids 1 6 1 1 # Bowel Movements 1 Result Diagram: 10/28/16 0420 10/28/16 0420 Imaging Last Impressions Chest X-Ray 10/27/16 0721 Signed Impressions: Service Date/Time: Thursday, October 27, 2016 07:50 - CONCLUSION: No acute cardiopulmonary abnormality is identified. Marcos Rebolledo MD Objective Remarks General: No acute distress. Heart: Regular rate and rhythm. No murmur. Lungs: Clear to auscultation bilaterally. No wheezes, rales, or rhonchi. Breathing is nonlabored. Abdomen: Soft, nontender, nondistended. Extremities: No lower extremity edema. Psych: Alert and oriented. Skin: Buttock wound bandaged. Procedures None Urinary Catheter: No Vascular Central Line Catheter: No A/P Problem List: (1) Decubitus ulcer of right buttock, unstageable ICD Code: L89.310 Status: Chronic (2) Hepatitis C ICD Code: B19.20 Status: Acute (3) CHF (congestive heart failure) ICD Code: I50.9 Status: Chronic (4) Cocaine abuse ICD Code: F14.10 Status: Chronic (5) Diabetes mellitus ICD Code: E11.9 Status: Chronic Assessment and Plan 8/2/17 No change. Appreciate wound care recommendations. Continue BID dressing changes with Dakin's solution. Needs plastic surgery evaluation, but no plastic surgeon available at this time. 1. Large decubitus ulcer, right buttock: Culture positive for MRSA. Previous culture growing MRSA, VRE. Wound VAC had been applied on previous hospitalization. Patient left AGAINST MEDICAL ADVICE. He reports that his pain is currently well controlled. There is no plastic surgeon or wound care physician on-call at this time. Will need to discuss the possibility of transfer for surgical intervention. Continue antibiotics as previously ordered ( Zyvox, Flagyl, ciprofloxacin). 2. Hepatitis C: Not a candidate for treatment secondary to ongoing cocaine abuse. 3. Chronic systolic congestive heart failure: Echocardiogram 09/16/16 shows EF 35 -40%. History of PEA arrest secondary to cocaine use. 4. Diabetes mellitus: Continue diabetic diet. Monitor Accu-Cheks and cover with sliding scale insulin. Continue Levemir 20 units twice a day. 5. Substance abuse: Patient counseled on cessation of crack cocaine use. 6. DVT prophylaxis: Petra, SARKIS villatoro. Problem Qualifiers (1) CHF (congestive heart failure): Qualified Code: I50.22 - Chronic systolic congestive heart failure Catrachito Ventura MD Oct 29, 2016 10:55
[2016-10-29] MEDS: SODIUM HYPOCHLORITE 0.125% 500 ML BTL TOPICAL SCH ×2 (12:50→21:00)
[2016-10-29 16:00] VITALS: BP 119/71; PULSE 75; RESP 19; TEMP 98; O2SAT 95
[2016-10-29 20:00] VITALS: BP 101/58; PULSE 72; RESP 18; TEMP 97.6; O2SAT 96
[2016-10-30] VITALS: BP 100/60; PULSE 80; RESP 18; TEMP 97.1; O2SAT 96
[2016-10-30] MEDS: LINEZOLID 600 MG PREMIX 300 ML IV SCH ×2 (04:39→16:46)
[2016-10-30] MEDS: metroNIDAZOLE 500 MG TAB PO SCH ×3 (04:39→20:59)
[2016-10-30] MEDS: INSULIN ASPART SUPPLEMENTAL SCALE SQ SCH ×4 (04:49→21:00)
[2016-10-30] MEDS ORDERED: PHARMACY ORDERED LAB ONE (05:45)
[2016-10-30 07:30] VITALS: BP 110/70; PULSE 69; RESP 19; TEMP 97.3; O2SAT 96
[2016-10-30] MEDS: DOCUSATE SODIUM 50 MG/SENNA 8.6 MG TAB PO SCH ×2 (09:00→20:59)
[2016-10-30] MEDS: CIPROFLOXACIN 750 MG TAB PO SCH ×2 (09:35→20:59)
[2016-10-30] MEDS: FUROSEMIDE 20 MG TAB PO SCH (09:35)
[2016-10-30] MEDS: amLODIPine BESYLATE 5 MG TAB PO SCH (09:35)
[2016-10-30] MEDS: CARVEDILOL 6.25 MG TAB PO SCH ×2 (09:35→20:59)
[2016-10-30] MEDS: ASPIRIN 81 MG CHEW TAB PO SCH (09:35)
[2016-10-30] MEDS: SODIUM CHLORIDE 0.9% FLUSH 10 ML FLUSH IV FLUSH SCH ×2 (09:35→21:00)
[2016-10-30] MEDS: CEFEPIME INJ 1,000 MG in SODIUM CHLORIDE 0.9% INJ 100 ML IV SCH ×2 (09:35→20:59)
[2016-10-30] MEDS: SODIUM HYPOCHLORITE 0.125% 500 ML BTL TOPICAL SCH ×2 (09:36→21:00)
[2016-10-30] MEDS: INSULIN DETEMIR 100 UNITS/ML VIAL SQ SCH ×2 (09:42→21:00)
--- NOTE | 2016-10-30 09:54 | HHI.PR ---
Subjective Remarks Follow up decubitus ulcer, infection. Patient states that he feels OK. Pain is adequately controlled. No chest pain, dyspnea, nausea, vomiting, diarrhea. Objective Vitals Vital Signs Date Time Temp Pulse Resp B/P Pulse Ox O2 Delivery O2 Flow Rate FiO2 10/30/16 07:30 97.3 69 19 110/70 96 10/30/16 00:00 97.1 80 18 100/60 96 10/29/16 20:00 97.6 72 18 101/58 96 10/29/16 16:00 98.0 75 19 119/71 95 I/O 10/29/16 10/29/16 10/29/16 10/30/16 10/30/16 10/30/16 07:00 15:00 23:00 07:00 15:00 23:00 Intake Total 1960 ml 360 ml 980 ml 240 ml Output Total 3200 ml 700 ml 0 ml Balance -1240 ml -340 ml 980 ml 240 ml Intake Oral 1560 ml 360 ml 480 ml 240 ml IV Total 400 ml 500 ml Output Urine Total 3200 ml 700 ml 0 ml # Voids 1 # Bowel Movements 0 2 Result Diagram: 10/28/16 0420 10/28/16 042 Imaging Last Impressions Chest X-Ray 10/27/16720 Signed Impressions: Service Date/Time: Thursday, October 27, 2016 07:50 - CONCLUSION: No acute cardiopulmonary abnormality is identified. Marcos Rebolledo MD Objective Remarks General: No acute distress. Heart: Regular rate and rhythm. No murmur. Lungs: Clear to auscultation bilaterally. No wheezes, rales, or rhonchi. Breathing is nonlabored. Abdomen: Soft, nontender, nondistended. Extremities: No lower extremity edema. Psych: Alert and oriented. Skin: Buttock wound unchanged, approximately 8cm x 7cm. There is yellow slough present as well as pink granulation tissue. Still with moderate drainage. Procedures None Urinary Catheter: No Vascular Central Line Catheter: No A/P Problem List: (1) Decubitus ulcer of right buttock, unstageable ICD Code: L89.310 Status: Chronic (2) Hepatitis C ICD Code: B19.20 Status: Acute (3) CHF (congestive heart failure) ICD Code: I50.9 Status: Chronic (4) Cocaine abuse ICD Code: F14.10 Status: Chronic (5) Diabetes mellitus ICD Code: E11.9 Status: Chronic Assessment and Plan 10/30/16 No change. Appreciate wound care recommendations. Continue BID dressing changes with Dakin's solution. Needs plastic surgery evaluation, but no plastic surgeon available at this time. 1. Large decubitus ulcer, right buttock: Culture positive for MRSA. Previous culture growing MRSA, VRE. Wound VAC had been applied on previous hospitalization. Patient left AGAINST MEDICAL ADVICE. He reports that his pain is currently well controlled. There is no plastic surgeon or wound care physician on-call at this time. Will need to discuss the possibility of transfer to another facility for surgical intervention. Continue antibiotics as previously ordered (Zyvox, Flagyl, ciprofloxacin). 2. Hepatitis C: Not a candidate for treatment secondary to ongoing cocaine abuse. 3. Chronic systolic congestive heart failure: Echocardiogram 09/16/16 shows EF 35 -40%. History of PEA arrest secondary to cocaine use. 4. Diabetes mellitus: Continue diabetic diet. Monitor Accu-Cheks and cover with sliding scale insulin. Continue Levemir 20 units twice a day. 5. Substance abuse: Patient counseled on cessation of crack cocaine use. 6. DVT prophylaxis: Petra, SARKIS villatoro. Problem Qualifiers (1) CHF (congestive heart failure): Qualified Code: I50.22 - Chronic systolic congestive heart failure Catrachito Ventura MD Oct 30, 2016 09:54
[2016-10-30 12:00] VITALS: BP 105/61; PULSE 68; RESP 19; TEMP 96.9; O2SAT 96
[2016-10-30 16:00] VITALS: BP 114/73; PULSE 68; RESP 20; TEMP 98.1; O2SAT 97
[2016-10-30 20:00] VITALS: BP 104/58; PULSE 66; RESP 18; TEMP 97.9; O2SAT 95
[2016-10-31] VITALS: BP 127/67; PULSE 83; RESP 18; TEMP 97.4; O2SAT 97
[2016-10-31] MEDS: metroNIDAZOLE 500 MG TAB PO SCH ×2 (04:17→14:21)
[2016-10-31] MEDS: LINEZOLID 600 MG PREMIX 300 ML IV SCH (04:18)
[2016-10-31] MEDS: INSULIN ASPART SUPPLEMENTAL SCALE SQ SCH ×2 (04:18→12:36)
[2016-10-31 08:00] VITALS: BP 109/79; PULSE 62; RESP 19; TEMP 97; O2SAT 97
[2016-10-31] MEDS: CEFEPIME INJ 1,000 MG in SODIUM CHLORIDE 0.9% INJ 100 ML IV SCH (08:27)
[2016-10-31] MEDS: CARVEDILOL 6.25 MG TAB PO SCH (08:28)
[2016-10-31] MEDS: ASPIRIN 81 MG CHEW TAB PO SCH (08:28)
[2016-10-31] MEDS: FUROSEMIDE 20 MG TAB PO SCH (08:28)
[2016-10-31] MEDS: DOCUSATE SODIUM 50 MG/SENNA 8.6 MG TAB PO SCH (08:28)
[2016-10-31] MEDS: CIPROFLOXACIN 750 MG TAB PO SCH (08:28)
[2016-10-31] MEDS: amLODIPine BESYLATE 5 MG TAB PO SCH (08:28)
[2016-10-31] MEDS: SODIUM CHLORIDE 0.9% FLUSH 10 ML FLUSH IV FLUSH SCH (08:29)
[2016-10-31] MEDS: SODIUM HYPOCHLORITE 0.125% 500 ML BTL TOPICAL SCH (08:30)
[2016-10-31] MEDS: INSULIN DETEMIR 100 UNITS/ML VIAL SQ SCH (08:50)
[2016-10-31 12:00] VITALS: BP 124/81; PULSE 62; RESP 20; TEMP 98.6; O2SAT 98
--- NOTE | 2016-10-31 13:00 | HHI.PR ---
Subjective Remarks Follow-up for the cubitus ulcer Pain is controlled, but the same. No fever. Will need plastic surgery consult. Objective Vitals Vital Signs Date Time Temp Pulse Resp B/P Pulse Ox O2 Delivery O2 Flow Rate FiO2 10/31/16 12:00 98.6 62 20 124/81 98 10/31/16 08:00 97.0 62 19 109/79 97 10/31/16 00:00 97.4 83 18 127/67 97 10/30/16 22:00 20 10/30/16 20:00 97.9 66 18 104/58 95 10/30/16 16:00 98.1 68 20 114/73 97 I/O 10/30/16 10/30/16 10/30/16 10/31/16 10/31/16 10/31/16 07:00 15:00 23:00 07:00 15:00 23:00 Intake Total 980 ml 1100 ml 760 ml 480 ml 240 ml Output Total 0 ml 700 ml 350 ml Balance 980 ml 400 ml 760 ml 130 ml 240 ml Intake Oral 480 ml 1000 ml 360 ml 480 ml 240 ml IV Total 500 ml 100 ml 400 ml Output Urine Total 0 ml 700 ml 350 ml # Voids 1 # Bowel Movements 2 Result Diagram: 10/28/1641910/28/16419 Objective Remarks General: No acute distress. Heart: Regular rate and rhythm. No murmur. Lungs: Clear to auscultation bilaterally. No wheezes, rales, or rhonchi. Breathing is nonlabored. Abdomen: Soft, nontender, nondistended. Extremities: No lower extremity edema. Psych: Alert and oriented. Skin: Buttock wound unchanged, approximately 8cm x 7cm. dressings in place, pink granulation tissue. Procedures None A/P Problem List: (1) Decubitus ulcer of right buttock, unstageable ICD Code: L89.310 Status: Chronic (2) Hepatitis C ICD Code: B19.20 Status: Acute (3) CHF (congestive heart failure) ICD Code: I50.9 Status: Chronic (4) Cocaine abuse ICD Code: F14.10 Status: Chronic (5) Diabetes mellitus ICD Code: E11.9 Status: Chronic Assessment and Plan 1. Large decubitus ulcer, right buttock: Culture positive for MRSA. Previous culture growing MRSA, VRE. Wound VAC had been applied on previous hospitalization. Patient left AGAINST MEDICAL ADVICE. He reports that his pain is currently well controlled. General surgery has previously seen the patient, recommends plastic surgery consultation, will likely need a flap. Reached out to Dr. Arechiga, awaiting to call back for/Text back. There is no plastic surgeon or wound care physician on-call at this time. Might need to of transfer to another facility for surgical intervention, case management following. Currently on cefepime, Zyvox, Flagyl, ciprofloxacin), previous culture grew MRSA, enterococcus and polymicrobial, infectious disease consulted. 2. Hepatitis C: Not a candidate for treatment secondary to ongoing cocaine abuse. 3. Chronic systolic congestive heart failure: Echocardiogram 09/16/16 shows EF 35 -40%. History of PEA arrest secondary to cocaine use. 4. Diabetes mellitus: Continue diabetic diet. Monitor Accu-Cheks and cover with sliding scale insulin. Continue Levemir 20 units twice a day. 5. Substance abuse: Patient counseled on cessation of crack cocaine use. 6. DVT prophylaxis: SARKIS Lambert. Problem Qualifiers (1) CHF (congestive heart failure): Qualified Code: I50.22 - Chronic systolic congestive heart failure Racheal Boucher MD Oct 31, 2016 13:00 Problem Qualifiers (1) CHF (congestive heart failure): Qualified Code: I50.22 - Chronic systolic congestive heart failure Racheal Boucher MD Oct 31, 2016 13:00
--- NOTE | 2016-10-31 15:58 | HHI.DS ---
Discharge Summary Admission Date Oct 27, 2016 at 06:31 Discharge Date: Oct 31, 2016 Admitting Diagnosis Infected decubitus ulcer (1) Decubitus ulcer of right buttock, unstageable ICD Code: L89.310 Diagnosis: Principal (2) Hepatitis C ICD Code: B19.20 Diagnosis: Secondary (3) CHF (congestive heart failure) ICD Code: I50.9 Diagnosis: Secondary (4) Cocaine abuse ICD Code: F14.10 Diagnosis: Secondary (5) Diabetes mellitus ICD Code: E11.9 Diagnosis: Secondary Procedures None Brief History - From Admission Written by Karo Freed PA-C acting as scribe for Dr. Ventura on 10/27/16 at 09:01. This is a 51-year-old male with a past medical history significant for hepatitis C, CHF with EF of 35-40%, cardiomyopathy, history of infected decubitus ulcer treated at this facility October 15 the with application of wound VAC and IV antibiotics followed by infectious disease but left AMA, diabetes, hypertension, history of PEA arrest 09/16/16 due to cocaine use and current substance abuse with cocaine and crack cocaine who presents to [facility] with complaints of severe unrelenting buttock pain. Patient is not very cooperative at this time and will only answer a few questions verbally and a few others by shaking his head yes or no but otherwise will not answer any questions. Therefore, history is obtained from review of the medical record as well. Per ED record, patient tried using crack cocaine for his severe buttock pain without relief. He reports he has not been taking any of his medications at home. He denies any fever or chills. Denies any nausea, vomiting, chest pain, shortness of breath or abdominal pain. Denies any urinary complaints. Prior to leaving [facility] 3 days ago, patient was under the resident service but they have refused readmission due to him being a difficult patient and leaving AGAINST MEDICAL ADVICE. CBC/BMP: 10/28/16 0420 10/28/16 0420 PE at Discharge General: No acute distress. Heart: Regular rate and rhythm. No murmur. Lungs: Clear to auscultation bilaterally. No wheezes, rales, or rhonchi. Breathing is nonlabored. Abdomen: Soft, nontender, nondistended. Extremities: No lower extremity edema. Psych: Alert and oriented. Skin: Buttock wound unchanged, approximately 8cm x 7cm. dressings in place, pink granulation tissue. Hospital Course Patient admitted after leaving AMA for large decubitus ulcer the right buttocks. Previous culture growing MRSA, VRE. Wound VAC had been applied on previous hospitalization. General surgery has previously seen the patient, recommends plastic surgery consultation, will likely need a flap. There is no plastic surgeon or wound care physician on-call at this time. Might need to of transfer to another facility for surgical intervention, case management following. Patient was placed on cefepime, Zyvox, Flagyl, ciprofloxacin, infectious disease was consulted. Ostomy transferred to another facility was being facilitated however patient left AGAINST MEDICAL ADVICE. Pt Condition on Discharge: Fair Discharge Disposition: Discharge Home (patient left AMA) Discharge Time: <= 30 minutes Racheal Boucher MD Oct 31, 2016 15:58
== END 2016-10-31 15:09 | disposition left against medical advice (07) | DRG 872 ==
LOC: NEPE 03:28 → NEDA 06:31 → N07A 10:03
PROVIDERS: ADMIT Hospitalist; ATTEND Hospitalist
DX: A41.9 Sepsis, unspecified organism (principal); L89.310 Pressure ulcer of right buttock, unstageable; I11.0 Hypertensive heart disease with heart failure; I42.9 Cardiomyopathy, unspecified; I50.22 Chronic systolic (congestive) heart failure; B95.62 Methicillin resistant Staphylococcus aureus infection as the cause of diseases classified elsewhere; B19.20 Unspecified viral hepatitis C without hepatic coma; I25.2 Old myocardial infarction; E11.9 Type 2 diabetes mellitus without complications; F14.10 Cocaine abuse, uncomplicated; Z79.4 Long term (current) use of insulin; Z86.73 Personal history of transient ischemic attack (TIA), and cerebral infarction without residual deficits; Z87.891 Personal history of nicotine dependence; Z86.74 Personal history of sudden cardiac arrest; R19.7 Diarrhea, unspecified
CPT/HCPCS: 71010; 71020; 80053; 82010; 82805; 82948; 83605; 83690; 83735; 83880; 84484; 85025; 85610; 85730; 86140; 86403; 87040; 87070; 87147; 87186; 87205; 93005; 96372; 96374; 96375; J0692; J1815; J2020; J2270; J2405; J2543; J3370; J7030; J7050

== ENCOUNTER 2016-11-07 04:09 | Inpatient (IN) | payer OTHER ==
[~2016-11-07] VITALS: Ht 170.2 cm; Wt 59.0 kg
[2016-11-07 04:12] VITALS: BP 131/81; PULSE 92; RESP 16; TEMP 98.4; O2SAT 100
[2016-11-07 04:53] VITALS: BP 115/70; PULSE 88; RESP 18; O2SAT 97
[2016-11-07] MEDS ORDERED: SODIUM CHLOR 0.9% 1000 ML INJ 1,000 ML IV ONE (05:15)
[2016-11-07] MEDS ORDERED: MORPHINE SULFATE 4 MG/ML INJ IV PUSH ONE (05:15)
--- NOTE | 2016-11-07 05:21 | PD ---
HPI Chief Complaint: Skin Problem Time Seen by Provider: 04:51 Travel History International Travel<30 days: No Contact w/Intl Traveler<30days: No Traveled to known affect area: No History of Present Illness HPI Patient is a 51 year old male who comes in complaining of pain from a decubitus ulcer. He has been here multiple times for this within the past month. He has been admitted each time, treated with antibiotics and told he needs to have a surgical flap done. Each admission, he signs out AMA. He says this time, he will stay. He complains of pain. He has not been taking any medication because he says that he leaves and is not given any prescriptions. He has not had fever or chills. PFSH Past Medical History Hx Anticoagulant Therapy: No Asthma: No Blood Disorders: No Anxiety: No Depression: No Heart Rhythm Problems: No Cancer: No Cardiovascular Problems: Yes (OK 1 month ago, HTN ) Chemotherapy: No Chest Pain: Yes Congestive Heart Failure: No COPD: No Cerebrovascular Accident: Yes Diabetes: Yes Patient Takes Glucophage: No Diminished Hearing: No Endocrine: Yes Gastrointestinal Disorders: No Genitourinary: No Hepatitis: No Hiatal Hernia: No Hypertension: Yes (DOES NOT KNOW IF HE TAKES MEDICINE FOR IT OR NOT) Immune Disorder: No Musculoskeletal: No Neurologic: No Psychiatric: Yes Reproductive: No Respiratory: No Myocardial Infarction: Yes (09/13) Radiation Therapy: No Sleep Apnea: No Thyroid Disease: No Tetanus Vaccination: < 5 Years Influenza Vaccination: Yes Past Surgical History Abdominal Surgery: Yes (R INGUINAL HERNIA REPAIR IN CHILDHOOD) AICD: No Joint Replacement: No Pacemaker: No Other Surgery: Yes (HERNIA REPAIR) Social History Alcohol Use: Yes (OCC) Tobacco Use: No (pt denies ) Substance Use: Yes (Cocaine, crack) Allergies-Medications (Allergen,Severity, Reaction): Coded Allergies: *MDRO Multi-Drug Resistant Organism (Verified Adverse Reaction, Unknown, ) MRSA PCR Screen 10/16/16 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, 10/15/16, 10/25/16, 10/27/16 MRSA (back) 10/15/16 Reported Meds & Prescriptions Reported Meds & Active Scripts Active Insulin Syringe/0.5ML/31G X 08/12" 1 Mis Mis 1 Box .ROUTE DIRECTED Levemir Inj (Insulin Detemir) 1,000 unit/ 10 ML Vial 20 Units SQ BID 30 Days Do not mix with any other Insulin. Bactrim (Sulfamethoxazole-Trimethoprim) 400-80 Mg Tab 2 Tab PO BID Ciprofloxacin (Ciprofloxacin HCl) 750 Mg Tab 750 Mg PO BID Furosemide 20 Mg Tab 20 Mg PO DAILY Ergocalciferol 50,000 Unit Cap 50,000 Units PO Q7D Coreg (Carvedilol) 6.25 Mg Tab 6.25 Mg PO Q12HR Aspirin Low Strength (Aspirin) 81 Mg Chew 81 Mg PO DAILY Norvasc (Amlodipine Besylate) 5 Mg Tab 5 Mg PO DAILY Review of Systems Except as stated in HPI: all other systems reviewed are Neg General / Constitutional: No: Fever, Chills HENT: No: Headaches, Lightheadedness Cardiovascular: No: Chest Pain or Discomfort Respiratory: No: Shortness of Breath Gastrointestinal: No: Nausea, Vomiting Musculoskeletal: Positive: Pain Skin: Positive Lesions Neurologic: No: Weakness, Dizziness Physical Exam Narrative GENERAL: Awake and alert, in no acute distress. SKIN: Large sacral decubitus ulcer with pink granulation tissue. No oozing of fluids. HEAD: Atraumatic. Normocephalic. EYES: Pupils equal and round. No scleral icterus. ENT: Mucous membranes pink and moist. NECK: Trachea midline. No JVD. CARDIOVASCULAR: Regular rate and rhythm. No murmur appreciated. RESPIRATORY: No accessory muscle use. Clear to auscultation. Breath sounds equal bilaterally. GASTROINTESTINAL: Abdomen soft, non-tender, nondistended. MUSCULOSKELETAL: No obvious deformities. No clubbing. No cyanosis. No edema. NEUROLOGICAL: Awake and alert. No obvious cranial nerve deficits. Motor grossly within normal limits. Normal speech. PSYCHIATRIC: Appropriate mood and affect; insight and judgment normal. Data Data Last Documented VS Vital Signs Date Time Temp Pulse Resp B/P Pulse Ox O2 Delivery O2 Flow Rate FiO2 11/07/16 04:53 88 18 115/70 97 Room Air 11/07/16 04:12 98.4 Orders Iv Access Insert/Monitor (11/07/16 05:04) Complete Blood Count With Diff (11/07/16 05:04) Comprehensive Metabolic Panel (11/07/16 05:04) Wound Culture And Gram Stain (11/07/16 05:04) Act Partial Throm Time (Ptt) (11/07/16 05:04) Prothrombin Time / Inr (Pt) (11/07/16 05:04) Sodium Chlor 0.9% 1000 Ml Inj (Ns 1000 M (11/07/16 05:15) Morphine Inj (Morphine Inj) (11/07/16 05:15) Admit Order (Ed Use Only) (11/07/16 ) Labs Laboratory Tests Test 11/07/16 05:09 White Blood Count 6.1 TH/MM3 Red Blood Count 4.18 MIL/MM3 Hemoglobin 11.0 GM/DL Hematocrit 33.8 % Mean Corpuscular Volume 80.9 FL Mean Corpuscular Hemoglobin 26.4 PG Mean Corpuscular Hemoglobin 32.7 % Concent Red Cell Distribution Width 15.7 % Platelet Count 174 TH/MM3 Mean Platelet Volume 9.3 FL Neutrophils (%) (Auto) 53.3 % Lymphocytes (%) (Auto) 28.9 % Monocytes (%) (Auto) 11.2 % Eosinophils (%) (Auto) 5.9 % Basophils (%) (Auto) 0.7 % Neutrophils # (Auto) 3.2 TH/MM3 Lymphocytes # (Auto) 1.8 TH/MM3 Monocytes # (Auto) 0.7 TH/MM3 Eosinophils # (Auto) 0.4 TH/MM3 Basophils # (Auto) 0.0 TH/MM3 CBC Comment DIFF FINAL Differential Comment Prothrombin Time 10.7 SEC Prothromb Time International 1.0 RATIO Ratio Activated Partial 22.3 SEC Thromboplast Time Sodium Level 138 MEQ/L Potassium Level 4.6 MEQ/L Chloride Level 104 MEQ/L Carbon Dioxide Level 27.6 MEQ/L Anion Gap 6 MEQ/L Blood Urea Nitrogen 13 MG/DL Creatinine 0.99 MG/DL Estimat Glomerular Filtration 97 ML/MIN Rate Random Glucose 244 MG/DL Calcium Level 8.9 MG/DL Total Bilirubin 0.4 MG/DL Aspartate Amino Transf 47 U/L (AST/SGOT) Alanine Aminotransferase 117 U/L (ALT/SGPT) Alkaline Phosphatase 92 U/L Total Protein 7.0 GM/DL Albumin 3.1 GM/DL [facility] Medical Decision Making Medical Screen Exam Complete: Yes Emergency Medical Condition: Yes Medical Record Reviewed: Yes Differential Diagnosis cellulitis vs abscess vs wound Narrative Course Patient is a 51-year-old male who comes in complaining of a painful sacral decubitus ulcer. Exam shows a deep ulcer to the sacral area. IV established, labs sent. Labs show no acute abnormalities. Antibiotics held at this time, pending infectious disease and put. I explained to the patient that this is never going to get better if he continues to sign out AMA every time he is here. He says he will stay in the hospital this time. Patient admitted for further management. Given morphine for pain. Diagnosis Primary Impression: Infected decubitus ulcer Qualified Code: L89.90 - Infected decubitus ulcer, unspecified ulcer stage Additional Impression: Diabetes mellitus Qualified Code: E11.9 - Type 2 diabetes mellitus without complication, without long-term current use of insulin Admitting Information Admitting Physician Requests: Admit Condition: Stable Lena Arambula MD Nov 07, 2016 05:21
[2016-11-07 05:22] LABS: AUTOMATED NEUTROPHIL # 3.2 TH/MM3 (1.8-7.7); BASOPHIL % 0.7 % (0.0-2.0); EOSINOPHIL # 0.4 TH/MM3 (0-0.4); EOSINOPHIL % 5.9 % (0.0-4.0); HEMATOCRIT 33.8 % (39.0-51.0); HEMO FLAGS DIFF FINAL; LYMPH % 28.9 % (9.0-44.0); LYMPHOCYTE # 1.8 TH/MM3 (1.0-4.8); MEAN CELL VOLUME 80.9 FL (80.0-100.0); MEAN CORPUSCULAR HEMOGLOBIN 26.4 PG (27.0-34.0); MEAN CORPUSCULAR HGB CONC 32.7 % (32.0-36.0); MONO % 11.2 % (0.0-8.0); NEUT % 53.3 % (16.0-70.0); PLATELET COUNT 174 TH/MM3 (150-450); RED BLOOD COUNT 4.18 MIL/MM3 (4.50-5.90); RED CELL DISTRIBUTION WIDTH 15.7 % (11.6-17.2); WHITE BLOOD COUNT 6.1 TH/MM3 (4.0-11.0)
[2016-11-07 05:30] LABS: APTT (PATIENT) 22.3 SEC (24.3-30.1); PROTHROMBIN TIME - PATIENT 10.7 SEC (9.8-11.6)
[2016-11-07 05:43] LABS: ANION GAP 6 MEQ/L (5-15); AST (GOT) 47 U/L (15-37); BICARBONATE 27.6 MEQ/L (21.0-32.0); BLOOD UREA NITROGEN 13 MG/DL (7-18); CHLORIDE 104 MEQ/L (98-107); GLOMERULAR FILTRATION RATE 97 ML/MIN (>89); POTASSIUM 4.6 MEQ/L (3.5-5.1); SODIUM (NA) 138 MEQ/L (136-145)
[2016-11-07 05:46] LABS: ALKALINE PHOSPHATASE 92 U/L (45-117); ALT (GPT) 117 U/L (12-78); TOTAL BILIRUBIN ADULT 0.4 MG/DL (0.2-1.0)
[2016-11-07] MEDS ORDERED: SODIUM CHLORIDE 0.9% FLUSH 10 ML FLUSH IV FLUSH PRN (06:30)
[2016-11-07] MEDS ORDERED: NALOXONE HCL 0.4 MG/ML AMP IV PRN (06:30)
[2016-11-07 08:15] VITALS: BP 132/77; PULSE 73; RESP 16; O2SAT 99
--- NOTE | 2016-11-07 08:40 | HHI.HP ---
[facility] No Primary Care Physician Admission Diagnosis infected saccral decubitus ulcer Diagnoses: (1) Decubitus ulcer of right buttock, unstageable (2) Non-compliance (3) Cardiomyopathy (4) Diabetes mellitus Chief Complaint: Pain from buttock wound Travel History International Travel<30 Days: No Contact w/Intl Traveler <30 Da: No Traveled to Known Affected Are: No History of Present Illness The patient is a 51-year-old male with multiple recent hospitalizations for evaluation and management of infected decubitus ulcer of the buttocks. He has left AGAINST MEDICAL ADVICE multiple times. He has been treated with antibiotics , but has not completed a full course because he leaves the hospital prior to completion of treatment. He presented to the emergency department again complaining of increased pain in the decubitus ulcer. He has no other complaints at this time. Denies fever, chills, night sweats. States that he has not been to the ER or urgent care since his last hospitalization, when he left AGAINST MEDICAL ADVICE on 10/31/16. He has not been on antibiotics in the past week. Review of Systems Constitutional: DENIES: Fever, Chills, Night Sweats Eyes: DENIES: Blurred vision, Vision loss Ears, nose, mouth, throat: DENIES: Hearing loss Respiratory: DENIES: Cough, Wheezing, Sputum production, Shortness of breath Cardiovascular: DENIES: Chest pain, Palpitations, Dyspnea on Exertion, Lower Extremity Edema Gastrointestinal: DENIES: Abdominal pain, Constipation, Diarrhea, Nausea, Vomiting Genitourinary: DENIES: Urinary frequency, Urinary incontinence, Urgency, Hematuria, Dysuria, Nocturia Musculoskeletal: DENIES: Joint pain, Muscle aches Integumentary: DENIES: Pruritus, Rash Hematologic/lymphatic: DENIES: Bruising Neurologic: DENIES: Headache Past Family Social History Past Medical History History of infected decubitus ulcer with cultures growing MRSA, enterococcus faecalis and enterococcus faecium VRE Hepatitis C Systolic CHF - EF 35-40%, mod-severe MR, Mild TR by echocardiogram 09/16/16 Cardiomyopathy Hypertension Diabetes History of PEA arrest 09/16/16 secondary to cocaine use Substance abuse with current use of crack cocaine Past Surgical History Bilateral hernia repair 2014 Wound VAC application, buttock wound Reported Medications Insulin Syringe/0.5ML/31G X 08/12" 1 Mis Mis 1 Box .ROUTE DIRECTED Levemir Inj (Insulin Detemir) 1,000 unit/ 10 ML Vial 20 Units SQ BID 30 Days Do not mix with any other Insulin. Bactrim (Sulfamethoxazole-Trimethoprim) 400-80 Mg Tab 2 Tab PO BID Ciprofloxacin (Ciprofloxacin HCl) 750 Mg Tab 750 Mg PO BID Furosemide 20 Mg Tab 20 Mg PO DAILY Ergocalciferol 50,000 Unit Cap 50,000 Units PO Q7D Coreg (Carvedilol) 6.25 Mg Tab 6.25 Mg PO Q12HR Aspirin Low Strength (Aspirin) 81 Mg Chew 81 Mg PO DAILY Norvasc (Amlodipine Besylate) 5 Mg Tab 5 Mg PO DAILY Allergies: Coded Allergies: *MDRO Multi-Drug Resistant Organism (Verified Adverse Reaction, Unknown, ) MRSA PCR Screen 10/16/16 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, 10/15/16, 10/25/16, 10/27/16 MRSA (back) 10/15/16 Family History Patient refused to answer further questions, but review of the electronic record shows that he has previously denied significant family history. Social History Patient has reported history of crack cocaine use. Denies tobacco use. Reports occasional alcohol use. Physical Exam Vital Signs Vital Signs Date Time Temp Pulse Resp B/P Pulse Ox O2 Delivery O2 Flow Rate FiO2 11/07/16 08:15 73 16 132/77 99 Room Air 11/07/16 04:53 88 18 115/70 97 Room Air 11/07/16 04:33 18 11/07/16 04:12 98.4 92 16 131/81 100 Room Air Physical Exam GENERAL: Well-nourished, well-developed male in no acute distress. HEENT: Normocephalic, atraumatic. Pupils equal, round and reactive. Extraocular movements intact. No scleral icterus. No injection or drainage. Oropharynx is clear. Mucous membranes are moist. CARDIOVASCULAR: Regular rate and rhythm without murmurs, gallops, or rubs. RESPIRATORY: Clear to auscultation. No wheezes, rales, or rhonchi. Breathing is non-labored. GASTROINTESTINAL: Abdomen soft, non-tender, nondistended. EXTREMITIES: No lower extremity edema. No calf tenderness. PSYCH: Alert and oriented x 3. SKIN: Large, deep decubitus ulcer over the left buttock with pink granulation tissue and gauze packing present. Laboratory Laboratory Tests Test 11/07/16 05:09 White Blood Count 6.1 Red Blood Count 4.18 Hemoglobin 11.0 Hematocrit 33.8 Mean Corpuscular Volume 80.9 Mean Corpuscular Hemoglobin 26.4 Mean Corpuscular Hemoglobin 32.7 Concent Red Cell Distribution Width 15.7 Platelet Count 174 Mean Platelet Volume 9.3 Neutrophils (%) (Auto) 53.3 Lymphocytes (%) (Auto) 28.9 Monocytes (%) (Auto) 11.2 Eosinophils (%) (Auto) 5.9 Basophils (%) (Auto) 0.7 Neutrophils # (Auto) 3.2 Lymphocytes # (Auto) 1.8 Monocytes # (Auto) 0.7 Eosinophils # (Auto) 0.4 Basophils # (Auto) 0.0 CBC Comment DIFF FINAL Differential Comment Prothrombin Time 10.7 Prothromb Time International 1.0 Ratio Activated Partial 22.3 Thromboplast Time Sodium Level 138 Potassium Level 4.6 Chloride Level 104 Carbon Dioxide Level 27.6 Anion Gap 6 Blood Urea Nitrogen 13 Creatinine 0.99 Estimat Glomerular Filtration 97 Rate Random Glucose 244 Calcium Level 8.9 Total Bilirubin 0.4 Aspartate Amino Transf 47 (AST/SGOT) Alanine Aminotransferase 117 (ALT/SGPT) Alkaline Phosphatase 92 Total Protein 7.0 Albumin 3.1 Date/Time Procedure Status Source Growth 11/07/16 05:09 Gram Stain Received Wound Buttock Pending 11/07/16 05:09 Wound Culture Received Wound Buttock Pending Result Diagram: 11/07/16 0509 11/07/16 0509 Assessment and Plan Assessment and Plan 1. Large decubitus ulcer: Consult wound care. Patient has received antibiotics, but has not completed a full course. He has been off antibiotics for the past week. Wound VAC had been placed on a prior hospitalization. General surgery has previously recommended evaluation by plastic surgery. Patient will likely require a flap. There is no plastic surgeon or wound care physician available at this time. Would consider pursuing transfer to another facility if an accepting facility can be found. Wound care nurse consult. Consult infectious disease for further recommendations regarding antibiotics. 2. Hepatitis C: Not a candidate for treatment secondary to crack cocaine use. 3. Cardiomyopathy, chronic systolic congestive heart failure: EF 35-40% in August 2016. Not currently in exacerbation. History of PEA arrest 09/16/16 secondary to cocaine use. Continue beta abby, Lasix, aspirin. 4. Hypertension: Continue Coreg, Norvasc, Lasix. 5. Diabetes mellitus: Monitor Accu-Cheks and cover with sliding scale insulin. Diabetic diet. Resume home insulin. 6. Substance abuse: Patient has been counseled. 7. DVT prophylaxis: Petra, SARKIS villatoro. Problem Qualifiers (1) Diabetes mellitus: Qualified Code: E11.9 - Type 2 diabetes mellitus without complication, without long-term current use of insulin Catrachito Ventura MD Nov 07, 2016 08:40
[2016-11-07] MEDS ORDERED: GLUCAGON 1 MG/ML VIAL OTHER PRN (08:45)
[2016-11-07] MEDS ORDERED: DEXTROSE 50% IN WATER 50 ML VIAL(D50) IV PRN (08:45)
[2016-11-07] MEDS ORDERED: SODIUM CHLORIDE 0.9% FLUSH 10 ML FLUSH IV FLUSH SCH (09:00)
[2016-11-07] MEDS ORDERED: FUROSEMIDE 20 MG TAB PO SCH (09:00)
[2016-11-07] MEDS ORDERED: amLODIPine BESYLATE 5 MG TAB PO SCH (09:00)
[2016-11-07] MEDS ORDERED: CARVEDILOL 6.25 MG TAB PO SCH (09:00)
[2016-11-07] MEDS ORDERED: ASPIRIN 81 MG CHEW TAB PO SCH (09:00)
[2016-11-07] MEDS ORDERED: INSULIN DETEMIR 100 UNITS/ML VIAL SQ SCH (09:00)
[2016-11-07 09:40] VITALS: BP 131/74; PULSE 85; RESP 18; TEMP 98.2; O2SAT 98
[2016-11-07] MEDS ORDERED: ERGOCALCIFEROL (VIT D2) 50,000 UNIT CAP PO SCH (10:00)
[2016-11-07] MEDS: INSULIN ASPART SUPPLEMENTAL SCALE SQ SCH ×2 (10:16→14:56)
[2016-11-07 12:00] VITALS: BP 121/76; PULSE 93; RESP 18; TEMP 97.5; O2SAT 99
--- NOTE | 2016-11-07 13:17 | PD.ID.CON ---
History of Present Illness Service ID Consult Requested By Reason for Consult Evaluation and Mment of infected sacral decub ulcer ? sacral abscess. Primary Care Physician No Primary Care Physician Diagnoses: History of Present Illness is a 51 y/o AAM with PMHx of Cocaine abuse, h/o PEA secondary to ? overdose. Prolonged hospitalization ? sacral decub during that visit per pt. Most history from medical records as pt not cooperative and appears sleepy and irritable. He was discharged, and did not have any follow-up. He has known diabetes, but has not been taking his medication. He hasn't been to the emergency room a couple times, and had hyperglycemia, and the decubitus. There was a wound culture done that had MRSA, and enterococcus. On both times he signed out against advice. He came back again in September 2016 with the same problem and was found to have hyperglycemia and infected wounds. Surgery saw the patient, and did debridement, and he had a wound VAC in his his right buttock wound. Culture grew mixed Enteric bacteria as well as MRSA and enterococcus. ID saw patient and recommended continuing wound care with oral antibiotics. Not sure if he has been compliant. No outpatient follow up with wound care post discharge per d.w pt. Infectious disease consultation has been requested to evaluate the patient for infected Sacral decub wound ? abscess. Review of Systems ROS Limitations: Poor Historian Past Family Social History Allergies: Coded Allergies: *MDRO Multi-Drug Resistant Organism (Verified Adverse Reaction, Unknown, ) MRSA PCR Screen 10/16/16 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, 10/15/16, 10/25/16, 10/27/16 MRSA (back) 10/15/16 Past Medical History PEA arrest - 09/16/16 Cardiomyopathy Acute systolic CHF - EF 35-40%, mod-severe MR, Mild TR HTN Diabetes Hepatitis C Cocaine use Past Surgical History Hernia repair Reported Medications Reported Meds & Active Scripts Active Insulin Syringe/0.5ML/31G X 08/12" 1 Mis Mis 1 Box .ROUTE DIRECTED Levemir Inj (Insulin Detemir) 1,000 unit/ 10 ML Vial 20 Units SQ BID 30 Days Do not mix with any other Insulin. Bactrim (Sulfamethoxazole-Trimethoprim) 400-80 Mg Tab 2 Tab PO BID Ciprofloxacin (Ciprofloxacin HCl) 750 Mg Tab 750 Mg PO BID Furosemide 20 Mg Tab 20 Mg PO DAILY Ergocalciferol 50,000 Unit Cap 50,000 Units PO Q7D Coreg (Carvedilol) 6.25 Mg Tab 6.25 Mg PO Q12HR Aspirin Low Strength (Aspirin) 81 Mg Chew 81 Mg PO DAILY Norvasc (Amlodipine Besylate) 5 Mg Tab 5 Mg PO DAILY Active Ordered Medications Current Medications Medications (Trade) Dose Ordered Sig/Joshua Route Start Time Stop Time Status Last Admin (NS Flush) 2 ml UNSCH PRN IV FLUSH 11/07/16 06:30 (NS Flush) 2 ml BID IV FLUSH 11/07/16 09:00 11/07/16 10:13 (Narcan Inj) 0.4 mg UNSCH PRN IV 11/07/16 06:30 (Norvasc) 5 mg DAILY PO 11/07/16 09:00 11/07/16 10:13 (Aspirin Chew) 81 mg DAILY PO 11/07/16 09:00 11/07/16 10:13 (Coreg) 6.25 mg Q12HR PO 11/07/16 09:00 11/07/16 10:13 (Drisdol) 50,000 units Q7D PO 11/07/16 10:00 11/07/16 10:42 (Lasix) 20 mg DAILY PO 11/07/16 09:00 11/07/16 10:13 (Levemir Inj) 20 units BID SQ 11/07/16 09:00 11/07/16 09:00 (D50w (Vial) Inj) 50 ml UNSCH PRN IV 11/07/16 08:45 (Glucagon Inj) 1 mg UNSCH PRN OTHER 11/07/16 08:45 Family History could not be obtained. Will try again at later date not cooperative at present time. Social History Patient is homeless. Uses cocaine. Denies any alcohol or tobacco use Physical Exam Vital Signs Vital Signs Date Time Temp Pulse Resp B/P Pulse Ox O2 Delivery O2 Flow Rate FiO2 11/07/16 12:00 97.5 93 18 121/76 99 11/07/16 09:40 98.2 85 18 131/74 98 11/07/16 09:40 98.2 85 18 131/74 98 11/07/16 08:15 73 16 132/77 99 Room Air 11/07/16 04:53 88 18 115/70 97 Room Air 11/07/16 04:33 18 11/07/16 04:12 98.4 92 16 131/81 100 Room Air Physical Exam GENERAL: This is a well-nourished, well-developed patient, in no apparent distress. SKIN: No rashes, ecchymoses or lesions. Cool and dry. HEAD: Atraumatic. Normocephalic. No temporal or scalp tenderness. EYES: Pupils equal round and reactive. Extraocular motions intact. No scleral icterus. No injection or drainage. ENT: Nose without bleeding, purulent drainage or septal hematoma. Throat without erythema, tonsillar hypertrophy or exudate. Uvula midline. Airway patent. NECK: Trachea midline. Supple, nontender, no meningeal signs. CARDIOVASCULAR: Regular rate and rhythm without murmurs, gallops, or rubs. RESPIRATORY: Clear to auscultation. Breath sounds equal bilaterally. No wheezes , rales, or rhonchi. GASTROINTESTINAL: Abdomen soft, non-tender, nondistended. MUSCULOSKELETAL: Extremities without clubbing, cyanosis, or edema. Sacral decub close to coccyx with tunneling noted. Dimensions as noted in wound assessment. Some foul discharge noted. Dark skinned so erythema cannot be appreciated. Warmth noted and ? fluctuance. NEUROLOGICAL: Awake and alert. Grossly non focal. Drowsy at times but arousable. Psych not very cooperative. IV line sites with no e.o infection Laboratory Laboratory Tests Test 11/07/16 05:09 White Blood Count 6.1 Red Blood Count 4.18 Hemoglobin 11.0 Hematocrit 33.8 Mean Corpuscular Volume 80.9 Mean Corpuscular Hemoglobin 26.4 Mean Corpuscular Hemoglobin 32.7 Concent Red Cell Distribution Width 15.7 Platelet Count 174 Mean Platelet Volume 9.3 Neutrophils (%) (Auto) 53.3 Lymphocytes (%) (Auto) 28.9 Monocytes (%) (Auto) 11.2 Eosinophils (%) (Auto) 5.9 Basophils (%) (Auto) 0.7 Neutrophils # (Auto) 3.2 Lymphocytes # (Auto) 1.8 Monocytes # (Auto) 0.7 Eosinophils # (Auto) 0.4 Basophils # (Auto) 0.0 CBC Comment DIFF FINAL Differential Comment Prothrombin Time 10.7 Prothromb Time International 1.0 Ratio Activated Partial 22.3 Thromboplast Time Sodium Level 138 Potassium Level 4.6 Chloride Level 104 Carbon Dioxide Level 27.6 Anion Gap 6 Blood Urea Nitrogen 13 Creatinine 0.99 Estimat Glomerular Filtration 97 Rate Random Glucose 244 Calcium Level 8.9 Total Bilirubin 0.4 Aspartate Amino Transf 47 (AST/SGOT) Alanine Aminotransferase 117 (ALT/SGPT) Alkaline Phosphatase 92 Total Protein 7.0 Albumin 3.1 Date/Time Procedure Status Source Growth 11/07/16 05:09 Gram Stain - Final Resulted Wound Buttock 11/07/16 05:09 Wound Culture Resulted Wound Buttock Pending Result Diagram: 11/07/16 0509 11/07/16 0509 Assessment and Plan Assessment and Plan Infected Sacral decub ulcer ? abscess underlying. Past h/o debridement and wound vac in September 2016. MRSA, Enterococcus, Stenotrophomonas infection in September 2016. Diabetes Mellitus Cocaine related PEA in past. Prolonged hospitalization then, Abnormal Liver function tests: sepsis, drugs, Hep Eosinophilia ? drugs related. Anemia Recs CT Abd Pelvis with contrast (? sacral abscess) Consider Surgery consult if abscess on CT A/P Start Levaquin (covers Steno malto and other GNR) Start Flagyl (anaerobic wound coverage for sacrum area) Start Zyvox (prior h/o MRSA in wound) Check CRP Check Hepatitis profile. Follow cultures Follow clinically. to cover for me this weekend, If any change in clinical condition , abnormal CT findings etc please call her sooner. Nurys [place] MD Nov 07, 2016 13:17
[2016-11-07] MEDS ORDERED: LEVOFLOXACIN 500 MG TAB PO SCH (14:00)
[2016-11-07] MEDS ORDERED: metroNIDAZOLE 500 MG TAB PO SCH (14:00)
[2016-11-07] MEDS ORDERED: LINEZOLID 600 MG TAB PO SCH (14:00)
[2016-11-07 16:00] VITALS: BP 137/87; PULSE 70; RESP 20; TEMP 97.7; O2SAT 99
== END 2016-11-07 16:58 | disposition left against medical advice (07) | DRG 593 ==
LOC: NEPE 04:09 → NEDA 06:28 → N05A 09:09
PROVIDERS: ADMIT Family Medicine; ATTEND Family Medicine
DX: L89.150 Pressure ulcer of sacral region, unstageable (principal); I42.9 Cardiomyopathy, unspecified; I50.22 Chronic systolic (congestive) heart failure; I11.0 Hypertensive heart disease with heart failure; E11.9 Type 2 diabetes mellitus without complications; D64.9 Anemia, unspecified; F14.10 Cocaine abuse, uncomplicated; B19.20 Unspecified viral hepatitis C without hepatic coma; L08.89 Other specified local infections of the skin and subcutaneous tissue; Z59.0 Homelessness; Z86.14 Personal history of Methicillin resistant Staphylococcus aureus infection; Z79.4 Long term (current) use of insulin; Z86.74 Personal history of sudden cardiac arrest; Z91.19 Patient's noncompliance with other medical treatment and regimen; I25.2 Old myocardial infarction; Z86.73 Personal history of transient ischemic attack (TIA), and cerebral infarction without residual deficits
CPT/HCPCS: 80053; 82948; 85025; 85610; 85730; 86140; 86403; 87070; 87077; 87186; 87205; 96374; J1815; J2270; J7030

== ENCOUNTER 2016-11-10 04:12 | Emergency (ER) | payer OTHER ==
[~2016-11-10] VITALS: Ht 170.2 cm; Wt 60.0 kg
[2016-11-10 04:15] VITALS: BP 142/86; PULSE 88; RESP 14; TEMP 98.4; O2SAT 99
[2016-11-10 04:24] VITALS: BP 142/86; PULSE 89; RESP 14; O2SAT 99
[2016-11-10] MEDS ORDERED: MORPHINE SULFATE 8 MG/ML INJ IV PUSH ONE (04:30)
[2016-11-10] MEDS ORDERED: ONDANSETRON HCL 4 MG/2 ML VIAL IVP ONE (04:30)
[2016-11-10] MEDS ORDERED: SODIUM CHLORIDE 0.9% FLUSH 10 ML FLUSH IV FLUSH PRN (04:30)
--- NOTE | 2016-11-10 04:39 | PD ---
HPI Chief Complaint: Skin Problem Time Seen by Provider: 04:20 Travel History International Travel<30 days: No Contact w/Intl Traveler<30days: No Traveled to known affect area: No History of Present Illness HPI Patient is a 51-year-old male presents emergency Department with right buttock pain. Patient has been admitted multiple times for infected sacral decubitus ulcer. He has always left AMA. The patient states she's done cocaine tonight to try and aid his pain. He states it didn't work. He is not currently on any antibiotics. He is not followed with a primary care physician. His ulcer was formed during a prolonged ICU stay after PEA arrest presumably for drug overdose. Patient denies any fevers denies abdominal pain denies any nausea or vomiting. PFSH Past Medical History Hx Anticoagulant Therapy: No Asthma: No Blood Disorders: No Anxiety: No Depression: No Heart Rhythm Problems: No Cancer: No Cardiovascular Problems: Yes (CT, HTN) Chemotherapy: No Chest Pain: Yes Congestive Heart Failure: No COPD: No Cerebrovascular Accident: Yes Diabetes: Yes Patient Takes Glucophage: No Diminished Hearing: No Endocrine: Yes Gastrointestinal Disorders: No Genitourinary: No Hepatitis: No Hiatal Hernia: No Hypertension: Yes (DOES NOT KNOW IF HE TAKES MEDICINE FOR IT OR NOT) Immune Disorder: No Musculoskeletal: No Neurologic: No Psychiatric: Yes Reproductive: No Respiratory: No Myocardial Infarction: Yes (09/13) Radiation Therapy: No Sleep Apnea: No Thyroid Disease: No Past Surgical History Abdominal Surgery: Yes (R INGUINAL HERNIA REPAIR IN CHILDHOOD) AICD: No Joint Replacement: No Pacemaker: No Other Surgery: Yes (HERNIA REPAIR) Social History Alcohol Use: Yes (OCC) Tobacco Use: No (pt denies ) Substance Use: Yes (Cocaine, crack) Allergies-Medications (Allergen,Severity, Reaction): Coded Allergies: *MDRO Multi-Drug Resistant Organism (Verified Adverse Reaction, Unknown, ) MRSA PCR Screen 10/16/16 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, 10/15/16, 10/25/16, 10/27/16 MRSA (back) 10/15/16 Reported Meds & Prescriptions Reported Meds & Active Scripts Active Bactrim DS (Sulfamethoxazole-Trimethoprim) 800-160 Mg Tab 1 Tab PO BID 7 Days Flagyl (Metronidazole) 500 Mg Tab 500 Mg PO BID 7 Days Insulin Syringe/0.5ML/G X 08/12" 1 Mis Mis 1 Box .ROUTE DIRECTED Levemir Inj (Insulin Detemir) 1,000 unit/ 10 ML Vial 20 Units SQ BID 30 Days Do not mix with any other Insulin. Bactrim (Sulfamethoxazole-Trimethoprim) 400-80 Mg Tab 2 Tab PO BID Ciprofloxacin (Ciprofloxacin HCl) 750 Mg Tab 750 Mg PO BID Furosemide 20 Mg Tab 20 Mg PO DAILY Ergocalciferol 50,000 Unit Cap 50,000 Units PO Q7D Coreg (Carvedilol) 6.25 Mg Tab 6.25 Mg PO Q12HR Aspirin Low Strength (Aspirin) 81 Mg Chew 81 Mg PO DAILY Norvasc (Amlodipine Besylate) 5 Mg Tab 5 Mg PO DAILY Review of Systems Except as stated in HPI: all other systems reviewed are Neg Physical Exam Narrative GENERAL: Well-developed well-nourished uncomfortable appearing male who appears nontoxic.. SKIN: There is a stage III decubitus ulcer over the right buttock, approximately silver dollar-sized area. Ears to have some granulation tissue. No surrounding cellulitis. HEAD: Atraumatic. Normocephalic. EYES: Pupils equal and round. No scleral icterus. No injection or drainage. ENT: No nasal bleeding or discharge. Mucous membranes pink and moist. NECK: Trachea midline. No JVD. CARDIOVASCULAR: Regular rate and rhythm. No murmur appreciated. RESPIRATORY: No accessory muscle use. Clear to auscultation. Breath sounds equal bilaterally. GASTROINTESTINAL: Abdomen soft, non-tender, nondistended. Hepatic and splenic margins not palpable. MUSCULOSKELETAL: No obvious deformities. No clubbing. No cyanosis. No edema. NEUROLOGICAL: Awake and alert. No obvious cranial nerve deficits. Motor grossly within normal limits. Normal speech. PSYCHIATRIC: Appropriate mood and affect; insight and judgment normal. Data Data Last Documented VS Vital Signs Date Time Temp Pulse Resp B/P Pulse Ox O2 Delivery O2 Flow Rate FiO2 11/10/16 04:24 89 14 142/86 99 Room Air 11/10/16 04:15 98.4 Orders Complete Blood Count With Diff (11/10/16 04:20) Comprehensive Metabolic Panel (11/10/16 04:20) Lactic Acid (11/10/16 04:20) Iv Access Insert/Monitor (11/10/16 04:20) Ecg Monitoring (11/10/16 04:20) Oximetry (11/10/16 04:20) Ondansetron Inj (Zofran Inj) (11/10/16 04:30) Sodium Chloride 0.9% Flush (Ns Flush) (11/10/16 04:30) Electrocardiogram (11/10/16 04:20) Morphine Inj (Morphine Inj) (11/10/16 04:30) Labs Laboratory Tests Test 11/10/16 04:29 White Blood Count 6.3 TH/MM3 Red Blood Count 4.06 MIL/MM3 Hemoglobin 10.7 GM/DL Hematocrit 33.1 % Mean Corpuscular Volume 81.5 FL Mean Corpuscular Hemoglobin 26.4 PG Mean Corpuscular Hemoglobin 32.4 % Concent Red Cell Distribution Width 15.6 % Platelet Count 192 TH/MM3 Mean Platelet Volume 8.7 FL Neutrophils (%) (Auto) 48.3 % Lymphocytes (%) (Auto) 34.1 % Monocytes (%) (Auto) 9.9 % Eosinophils (%) (Auto) 7.3 % Basophils (%) (Auto) 0.4 % Neutrophils # (Auto) 3.0 TH/MM3 Lymphocytes # (Auto) 2.1 TH/MM3 Monocytes # (Auto) 0.6 TH/MM3 Eosinophils # (Auto) 0.5 TH/MM3 Basophils # (Auto) 0.0 TH/MM3 CBC Comment DIFF FINAL Differential Comment Sodium Level 138 MEQ/L Potassium Level 4.0 MEQ/L Chloride Level 105 MEQ/L Carbon Dioxide Level 28.8 MEQ/L Anion Gap 4 MEQ/L Blood Urea Nitrogen 11 MG/DL Creatinine 1.04 MG/DL Estimat Glomerular Filtration 91 ML/MIN Rate Random Glucose 258 MG/DL Lactic Acid Level 1.0 mmol/L Calcium Level 7.8 MG/DL Total Bilirubin 0.4 MG/DL Aspartate Amino Transf 55 U/L (AST/SGOT) Alanine Aminotransferase 94 U/L (ALT/SGPT) Alkaline Phosphatase 98 U/L Total Protein 6.5 GM/DL Albumin 2.9 GM/DL [facility] Medical Decision Making Medical Screen Exam Complete: Yes Emergency Medical Condition: Yes Interpretation(s) EKG shows sinus rhythm with normal axis and normal R-wave progression. LVH. Peak T wave in V3 is an isolated finding. No criteria for STEMI. This an abnormal EKG. Differential Diagnosis Decubitus ulcer, sepsis seems unlikely, DKA. Narrative Course Patient roomed in emergency department, given pain medicine, basic labs reviewed white blood cell count normal, lactic acid negative, chemistries within normal limits. [place] upper glycemia but certainly no EKG. His pain is well under control. Discussed with him that at this point need to make a decision whether or not to admit him back to the hospital or discharge him home. Discussed with him that he leaves the hospital quite frequently and he is topic. He did admit to cocaine use today. He would like to go home so we ultimately discussed. I will place him on Bactrim as well as Flagyl. Discussed that he needs to follow up with infectious disease and/or the [facility] clinic. He verbalized understanding and agreement and expressed his desire for discharge. Discussed return to ED criteria. He ambulates in emerged Department in no distress. Diagnosis Primary Impression: Pressure ulcer Referrals: [facility] Med/Other Pt SpecificInfo: Prescription(s) given Scripts Sulfamethoxazole-Trimethoprim (Bactrim DS)800-160 Mg Tab1 Tab PO BID 7 Days Ref 0 Prov:Reynaldo Del Rio MD 11/10/16 Metronidazole (Flagyl)500 Mg [id number] Mg PO BID 7 Days Ref 0 Prov:Reynaldo Del Rio MD 11/10/16 Disposition: 01 DISCHARGE HOME Condition: Stable (ERASED) Reynaldo Del Rio MD Nov 10, 2016 04:38
[2016-11-10 05:59] LABS: BASOPHIL % 0.4 % (0.0-2.0); EOSINOPHIL # 0.5 TH/MM3 (0-0.4); EOSINOPHIL % 7.3 % (0.0-4.0); HEMATOCRIT 33.1 % (39.0-51.0); HEMO FLAGS DIFF FINAL; LYMPH % 34.1 % (9.0-44.0); LYMPHOCYTE # 2.1 TH/MM3 (1.0-4.8); MEAN CELL VOLUME 81.5 FL (80.0-100.0); MEAN CORPUSCULAR HEMOGLOBIN 26.4 PG (27.0-34.0); MEAN CORPUSCULAR HGB CONC 32.4 % (32.0-36.0); MONO % 9.9 % (0.0-8.0); NEUT % 48.3 % (16.0-70.0); PLATELET COUNT 192 TH/MM3 (150-450); RED BLOOD COUNT 4.06 MIL/MM3 (4.50-5.90); RED CELL DISTRIBUTION WIDTH 15.6 % (11.6-17.2); WHITE BLOOD COUNT 6.3 TH/MM3 (4.0-11.0)
[2016-11-10 06:19] LABS: ALKALINE PHOSPHATASE 98 U/L (45-117); ALT (GPT) 94 U/L (12-78); ANION GAP 4 MEQ/L (5-15); AST (GOT) 55 U/L (15-37); BICARBONATE 28.8 MEQ/L (21.0-32.0); BLOOD UREA NITROGEN 11 MG/DL (7-18); CHLORIDE 105 MEQ/L (98-107); GLOMERULAR FILTRATION RATE 91 ML/MIN (>89); SODIUM (NA) 138 MEQ/L (136-145); TOTAL BILIRUBIN ADULT 0.4 MG/DL (0.2-1.0)
[2016-11-10] MEDS ORDERED: METR-1 PO (06:25)
[2016-11-10] MEDS ORDERED: BACT800T5 PO (06:25)
--- NOTE | 2016-11-10 16:47 | EKG ---
Date Performed: 11/10/2016 Time Performed: 04:33:26 PTAGE: 51 years EKG: Sinus rhythm WITH SHORT [place] INTERVAL POSSIBLE LEFT ATRIAL ENLARGEMENT POSSIBLE LEFT VENTRICULAR HYPERTROPHY NONSPE CIFIC T-WAVE ABNORMALITY ABNORMAL ECG PREVIOUS TRACING : 10/27/2016 06.36 Compared to prior tracing no significant change DOCTOR: Aida Alexander Interpretating Date/Time 11/10/2016 16:45:18
== END 2016-11-10 06:37 | disposition home or self-care (01) ==
LOC: NEPC 04:12
DX: L89.313 Pressure ulcer of right buttock, stage 3 (principal); R94.31 Abnormal electrocardiogram [ECG] [EKG]; E11.9 Type 2 diabetes mellitus without complications; I10 Essential (primary) hypertension; I25.2 Old myocardial infarction; Z79.4 Long term (current) use of insulin; Z87.2 Personal history of diseases of the skin and subcutaneous tissue; Z86.79 Personal history of other diseases of the circulatory system
CPT/HCPCS: 80053; 83605; 85025; 93005; 96374; 96375; 99284; J2270; J2405

== ENCOUNTER 2017-08-30 14:55 | Inpatient (IN) | payer OTHER ==
[2017-08-30] VITALS (13 sets, daily range): BP systolic 118–153; BP diastolic 80–109; PULSE 68–110; RESP 25–37; TEMP 97.9–98.1; O2SAT 83–100
[~2017-08-30] VITALS: Ht 170.2 cm; Wt 62.6 kg
[~2017-08-30 14:55] MED LIST changes: +BACT800T5 PO; -ERGO1CAP30 PO; +METR-1 PO; +VITA500012 PO
[2017-08-30] MEDS ORDERED: PIPERACIL-TAZO 4.5 GM PREMIX 100 ML IV ONE (15:15)
[2017-08-30] MEDS ORDERED: VANCOMYCIN INJ 1,000 MG in SODIUM CHLOR 0.9% 250 ML INJ 250 ML IV ONE (15:15)
--- NOTE | 2017-08-30 15:41 | PD ---
HPI Chief Complaint: Respiratory Symptoms Time Seen by Provider: 15:03 Travel History International Travel<30 days: No Contact w/Intl Traveler<30days: No Traveled to known affect area: No History of Present Illness HPI Patient is a 52-year-old male who about this time last year had a cardiac arrest requiring prolonged stay in the ICU and complicated by bedsores. He presents emergency department today with a 2-3 day history of shortness of breath. The patient denies a history of congestive heart failure. Family called 9 1 today when he little bit confused walked out into the living room wearing nothing but his underwear. Patient denies any chest pain abdominal pain nausea vomiting, he states he has had a cough nonproductive of sputum. No fevers. He states his symptoms are moderate, for the past 3-4 days, associated with some altered mental status in context as above. PFSH Past Medical History Hx Anticoagulant Therapy: No Asthma: No Blood Disorders: No Anxiety: No Depression: No Heart Rhythm Problems: No Cancer: No Cardiovascular Problems: Yes ([place], HTN) Chemotherapy: No Chest Pain: Yes Congestive Heart Failure: No COPD: No Cerebrovascular Accident: Yes Diabetes: Yes Patient Takes Glucophage: No Diminished Hearing: No Endocrine: Yes Gastrointestinal Disorders: No Genitourinary: No Hepatitis: No Hiatal Hernia: No Hypertension: Yes Immune Disorder: No Musculoskeletal: No Neurologic: No Psychiatric: Yes Reproductive: No Respiratory: No Myocardial Infarction: Yes (09/13) Radiation Therapy: No Sleep Apnea: No Thyroid Disease: No Past Surgical History Abdominal Surgery: Yes (R INGUINAL HERNIA REPAIR IN CHILDHOOD) AICD: No Joint Replacement: No Pacemaker: No Other Surgery: Yes (HERNIA REPAIR) Social History Alcohol Use: Yes (OCC) Tobacco Use: No Substance Use: Yes (Cocaine, crack) Allergies-Medications (Allergen,Severity, Reaction): Coded Allergies: *MDRO Multi-Drug Resistant Organism (Verified Adverse Reaction, Unknown, ) MRSA PCR Screen 10/16/16 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, 10/15/16, 10/25/16, 10/27/16 MRSA (back) 10/15/16 Reported Meds & Prescriptions Reported Meds & Active Scripts Active Levemir Inj (Insulin Detemir) 1,000 unit/ 10 ML Vial 20 Units SQ BID 30 Days Do not mix with any other Insulin. Furosemide 20 Mg Tab 20 Mg PO DAILY Ergocalciferol 50,000 Unit Cap 50,000 Units PO Q7D Coreg (Carvedilol) 6.25 Mg Tab 6.25 Mg PO Q12HR Aspirin Low Strength (Aspirin) 81 Mg Chew 81 Mg PO DAILY Norvasc (Amlodipine Besylate) 5 Mg Tab 5 Mg PO DAILY Review of Systems Except as stated in HPI: all other systems reviewed are Neg Physical Exam Narrative GENERAL: Well-developed well-nourished, thin male, tachycardic and tachypneic. SKIN: Focused skin assessment warm/dry. There is obvious retractions intercostally. HEAD: Atraumatic. Normocephalic. EYES: Pupils equal and round. No scleral icterus. No injection or drainage. ENT: No nasal bleeding or discharge. Mucous membranes pink and moist. NECK: Trachea midline. No JVD. CARDIOVASCULAR: Tachycardia with regular rhythm.. No murmur appreciated. Positive JVD. RESPIRATORY: Tachypnea, rales particularly on the right side but there are faint on the left. There are intercostal retractions and supraclavicular retractions. He is tachycardic and tachypneic, GASTROINTESTINAL: Abdomen soft, non-tender, nondistended. Hepatic and splenic margins not palpable. MUSCULOSKELETAL: No obvious deformities. No clubbing. No cyanosis. No edema. NEUROLOGICAL: Awake and alert. No obvious cranial nerve deficits. Motor grossly within normal limits. Normal speech. PSYCHIATRIC: Appropriate mood and affect; insight and judgment normal. Data Data Last Documented VS Vital Signs Date Time Temp Pulse Resp B/P (MAP) Pulse Ox O2 Delivery O2 Flow Rate FiO2 08/30/17 18:00 86 36 118/80 (93) 93 BiPAP 60 08/30/17 15:30 2.00 08/30/17 15:08 98.1 Orders Orders Sepsis Workup Initiated (08/30/17 ) Electrocardiogram (08/30/17 15:03) Complete Blood Count With Diff (08/30/17 15:03) Comprehensive Metabolic Panel (08/30/17 15:03) Prothrombin Time / Inr (Pt) (08/30/17 15:03) Act Partial Throm Time (Ptt) (08/30/17 15:03) Lactic Acid Sepsis Protocol (08/30/17 15:03) Magnesium (Mg) (08/30/17 15:03) Phosphorus (Po4) (08/30/17 15:03) Lipase (08/30/17 15:03) Ckmb (Isoenzyme) Profile (08/30/17 15:03) Troponin I (08/30/17 15:03) Urinalysis - C+S If Indicated (08/30/17 15:03) Blood Culture (08/30/17 15:03) Chest, Single Ap (08/30/17 15:03) Ecg Monitoring (08/30/17 15:03) Iv Access Insert/Monitor (08/30/17 15:03) Oximetry (08/30/17 15:03) Oxygen Administration (08/30/17 15:03) Vancomycin Inj (Vancomycin Inj) (08/30/17 15:15) Piperacil-Tazo 4.5 Gm Premix (Zosyn 4.5 (08/30/17 15:15) Blood Gas Venous (Vbg) (08/30/17 15:48) Resp Bipap / Cpap Non Invas Vt (08/30/17 ) Echo 2d Comp With Doppler (08/30/17 ) B-Type Natriuretic Peptide (08/30/17 15:54) CKMB (08/30/17 15:15) CKMB% (08/30/17 15:15) Lorazepam Inj (Ativan Inj) (08/30/17 16:30) Lorazepam Inj (Ativan Inj) (08/30/17 17:00) Consult Cardiology (08/30/17 ) (Hub Use Only)Inp Phy Cons/Ref (08/30/17 ) Furosemide Inj (Lasix Inj) (08/30/17 18:15) Furosemide Inj (Lasix Inj) (08/31/17 09:00) Digoxin Inj (Lanoxin Inj) (08/30/17 18:15) B-Type Natriuretic Peptide (08/31/17 06:00) Basic Metabolic Panel (Bmp) (08/31/17 06:00) Magnesium (Mg) (08/31/17 06:00) Digoxin (08/31/17 06:00) Aspirin Ec (Ecotrin Ec) (08/30/17 18:15) Aspirin Ec (Ecotrin Ec) (08/31/17 09:00) Troponin I (08/31/17 06:00) Creatine Kinase (Cpk) (08/31/17 06:00) Ct Pulmonary Angiogram (08/30/17 ) Iohexol 350 Inj (Omnipaque 350 Inj) (08/30/17 19:05) Admit Order (Ed Use Only) (08/30/17 ) Labs Laboratory Tests Test 08/30/17 15:15 08/30/17 16:00 08/30/17 18:40 08/30/17 19:05 White Blood Count 6.7 TH/MM3 Red Blood Count 4.95 MIL/MM3 Hemoglobin 13.0 GM/DL Hematocrit 41.2 % Mean Corpuscular Volume 83.3 FL Mean Corpuscular Hemoglobin 26.3 PG Mean Corpuscular Hemoglobin Concent 31.6 % Red Cell Distribution Width 13.5 % Platelet Count 213 TH/MM3 Mean Platelet Volume 10.0 FL Neutrophils (%) (Auto) 69.2 % Lymphocytes (%) (Auto) 20.6 % Monocytes (%) (Auto) 8.7 % Eosinophils (%) (Auto) 1.2 % Basophils (%) (Auto) 0.3 % Neutrophils # (Auto) 4.6 TH/MM3 Lymphocytes # (Auto) 1.4 TH/MM3 Monocytes # (Auto) 0.6 TH/MM3 Eosinophils # (Auto) 0.1 TH/MM3 Basophils # (Auto) 0.0 TH/MM3 CBC Comment DIFF FINAL Differential Comment Prothrombin Time 11.3 SEC Prothromb Time International Ratio 1.1 RATIO Activated Partial Thromboplast Time 22.2 SEC Blood Urea Nitrogen 25 MG/DL Creatinine 1.23 MG/DL Random Glucose 252 MG/DL Total Protein 6.8 GM/DL Albumin 3.0 GM/DL Calcium Level 7.9 MG/DL Phosphorus Level 4.4 MG/DL Magnesium Level 2.0 MG/DL Alkaline Phosphatase 98 U/L Aspartate Amino Transf (AST/SGOT) 40 U/L Alanine Aminotransferase (ALT/SGPT) 58 U/L Total Bilirubin 0.7 MG/DL Sodium Level 139 MEQ/L Potassium Level 4.3 MEQ/L Chloride Level 107 MEQ/L Carbon Dioxide Level 19.7 MEQ/L Anion Gap 12 MEQ/L Estimat Glomerular Filtration Rate 75 ML/MIN Lactic Acid Level 2.4 mmol/L 1.6 mmol/L Total Creatine Kinase 414 U/L Creatine Kinase MB 8.8 NG/ML Creatine Kinase MB % 2.1 % Troponin I 0.03 NG/ML B-Type Natriuretic Peptide 1680 PG/ML Lipase 116 U/L Blood Gas Puncture Site SWAN CLYDE LINE Blood Gas Patient Temperature 98.6 Venous Blood pH 7.32 Venous Blood Partial Pressure CO2 37 mmHg Venous Blood Partial Pressure O2 41 mmHg Venous Blood HCO3 18 mmol/L Venous Blood Oxygen Saturation 66 % Venous Blood Oxygen Content 9.7 Vol % Venous Blood Base Excess -6.7 mmol/L Oxygen Delivery Device BIPAP Blood Gas Ventilator Setting 15/+5/50% Blood Gas Inspired Oxygen 50 % Urine Color LIGHT-YELLOW Urine Turbidity CLEAR Urine pH 5.5 Urine Specific Orange 1.014 Urine Protein 30 mg/dL Urine Glucose (UA) NEG mg/dL Urine Ketones NEG mg/dL Urine Occult Blood NEG Urine Nitrite NEG Urine Bilirubin NEG Urine Urobilinogen LESS THAN 2.0 MG/DL Urine Leukocyte Esterase NEG Urine RBC LESS THAN 1 /hpf Urine WBC 1 /hpf Urine Squamous Epithelial Cells <1 /hpf Urine Mucus FEW /lpf Microscopic Urinalysis Comment CULT NOT INDICATED MDM Medical Decision Making Medical Screen Exam Complete: Yes Emergency Medical Condition: Yes Differential Diagnosis Pneumonia, CHF, hypoxia, pulmonary edema, hypercapnia, sepsis, ACS, [place]. Narrative Course Patient room to the emergency department compared to his previous chest x-ray the cardiac silhouette is substantially larger over the past 10 months today. He does have some right-sided infiltrates consistent with either pulmonary edema or pneumonia. He was started on broad-spectrum antibiotics, fluid resuscitation held as the patient probably is more consistent with CHF. A stat echo was ordered and the patient was discussed with Dr. Lopez. His EKG shows significant left ventricular hypertrophy but no evidence of acute ischemia. The patient tiring from his own respiratory effort was placed on BiPAP to supplement his respiratory effort and is tolerating it fairly well however it is making him somewhat anxious. A total of 1/2 mg of Ativan was given to him in the emergency department and he is tolerating the BiPAP much better. He remains tachypneic about [address] PE protocol was ordered, stat echo still pending the patient was discussed with Dr. Dodd for admission and he is agreeable. Dr. Dodd is added on Lasix, he has been seen by Dr. Lopez who added on digoxin. The patient remains in serious condition will be admitted to the ICU. Last 24 hours Impressions Chest X-Ray 08/30/17 1503 Signed Impressions: CONCLUSION: Bilateral infiltrates, right more so than left. CT Angiography 08/30/17 0000 Signed Impressions: CONCLUSION: 1. No evidence of pulmonary embolism. 2. Diffuse infiltrates bilaterally consistent with moderate pulmonary edema an d/or pneumonia. Clinical correlation is recommended. 3. Small bilateral pleural effusions (right slightly larger than left) are not ed. 4. Cardiomegaly. Critical Care Narrative Aggregate critical care time was 35 minutes. Time to perform other separately billable procedures was not included in the critical care time. My time did not include minutes spent treating any other patients simultaneously or on activities that did not directly contribute to the patient's treatment. The services I provided to this patient were to treat and/or prevent clinically significant deterioration that could result in: , disability, organ failure. I provided critical care services requiring my management, as noted below: Chart data review, documentation time, medication orders and management, vital sign assessments/reviewing monitor data, ordering and reviewing lab tests, ordering and interpreting/reviewing x-rays and diagnostic studies, care of the patient and discussion of the patient with the admitting physicians. Diagnosis Primary Impression: Acute respiratory failure with hypoxia Additional Impressions: Altered mental status Pulmonary edema Admitting Information Admitting Physician Requests: Admit Condition: Serious Reynaldo Del Rio MD Aug 30, 2017 15:41
[2017-08-30 15:49] LABS: AUTOMATED NEUTROPHIL # 4.6 TH/MM3 (1.8-7.7); BASOPHIL % 0.3 % (0.0-2.0); EOSINOPHIL # 0.1 TH/MM3 (0-0.4); EOSINOPHIL % 1.2 % (0.0-4.0); HEMATOCRIT 41.2 % (39.0-51.0); LYMPH % 20.6 % (9.0-44.0); LYMPHOCYTE # 1.4 TH/MM3 (1.0-4.8); MEAN CELL VOLUME 83.3 FL (80.0-100.0); MEAN CORPUSCULAR HEMOGLOBIN 26.3 PG (27.0-34.0); MEAN CORPUSCULAR HGB CONC 31.6 % (32.0-36.0); MONO % 8.7 % (0.0-8.0); MONOCYTE # 0.6 TH/MM3 (0-0.9); NEUT % 69.2 % (16.0-70.0); PLATELET COUNT 213 TH/MM3 (150-450); RED BLOOD COUNT 4.95 MIL/MM3 (4.50-5.90); RED CELL DISTRIBUTION WIDTH 13.5 % (11.6-17.2); WHITE BLOOD COUNT 6.7 TH/MM3 (4.0-11.0)
[2017-08-30 15:50] LABS: LACTIC ACID SEPSIS PROTOCOL 2.4 mmol/L (0.4-2.0)
[2017-08-30 16:02] LABS: INTERNATIONAL NORMALIZED RATIO 1.1 RATIO; PROTHROMBIN TIME - PATIENT 11.3 SEC (9.8-11.6)
--- NOTE | 2017-08-30 16:04 | RADRPT ---
EXAM DATE: 08/30/2017 3:49 PM EDT AGE/SEX: 52 years / Male INDICATIONS: Mid-chest pain and shortness of breath for two days. CLINICAL DATA: This is the patient's initial encounter. Patient reports that signs and symptoms have been present for 2 days and indicates a pain score of 8/10. MEDICAL/SURGICAL HISTORY: Hypertension. Myocardial infarction. None. COMPARISON: [facility] – [place], CHEST SINGLE AP, 10/27/2016. . FINDINGS: Patchy consolidation seen of both mid and lower lungs, right more so than left. A small right pleural effusion is also suspected. No pneumothorax. Heart size upper limits of normal. CONCLUSION: Bilateral infiltrates, right more so than left. Electronically signed by: Marcos Simpson MD 08/30/2017 4:02 PM EDT
[2017-08-30 16:15] LABS: ALKALINE PHOSPHATASE 98 U/L (45-117); ALT (GPT) 58 U/L (12-78); AST (GOT) 40 U/L (15-37); BICARBONATE 19.7 MEQ/L (21.0-32.0); BLOOD UREA NITROGEN 25 MG/DL (7-18); CALCIUM 7.9 MG/DL (8.5-10.1); CHLORIDE 107 MEQ/L (98-107); CREATININE 1.23 MG/DL (0.60-1.30); GLOMERULAR FILTRATION RATE 75 ML/MIN (>89); GLUCOSE,RANDOM 252 MG/DL (74-106); PHOSPHORUS 4.4 MG/DL (2.5-4.9); SODIUM (NA) 139 MEQ/L (136-145); TOTAL BILIRUBIN ADULT 0.7 MG/DL (0.2-1.0); TROPONIN I 0.03 NG/ML (0.02-0.05)
[2017-08-30 16:16] LABS: TOTAL PROTEIN 6.8 GM/DL (6.4-8.2)
[2017-08-30] MEDS ORDERED: LORazepam 2 MG/ML VIAL IV PUSH ONE ×2 (16:30→17:00)
[2017-08-30] MEDS ORDERED: FUROSEMIDE 40 MG/4 ML VIAL IV PUSH ONE (18:15)
[2017-08-30] MEDS ORDERED: ASPIRIN EC 81 MG TABEC PO ONE (18:15)
[2017-08-30] MEDS ORDERED: DIGOXIN 0.5 MG/2 ML VIAL IV PUSH ONE (18:15)
[2017-08-30] MEDS ORDERED: IOHEXOL 350 MG/ML 10 ML VIAL (for RAD DIAG) IVCONTRAST ONE (19:05)
[2017-08-30 19:24] LABS: BILIRUBIN, URINE NEG (NEG); BLOOD, URINE NEG (NEG); GLUCOSE,URINE NEG (NEG); KETONE, URINE NEG (NEG); MUCUS URINE FEW /lpf (OCC); NITRITE,URINE NEG (NEG); PH, URINE 5.5 (5.0-8.5); SQUAMOUS EPITHELIAL CELL URINE <1 /hpf (0-5); URINE COLOR LIGHT-YELLOW (YELLW/STRAW); URINE LEUKOCYTE ESTERASE NEG (NEG)
--- NOTE | 2017-08-30 19:24 | RADRPT ---
EXAM DATE: 08/30/2017 7:12 PM EDT AGE/SEX: 52 years / Male INDICATIONS: Short of breath. CLINICAL DATA: This is the patient's initial encounter. Patient reports that signs and symptoms have been present for 1 day and indicates a pain score of Nonresponsive. MEDICAL/SURGICAL HISTORY: Cerebrovascular disease. Cardiovascular disease. Diabetes. Substance a buse. Hypertension. . Hernia repair. RADIATION DOSE: 18.97 CTDI (mGy) COMPARISON: [facility] – [place], CHEST SINGLE AP, 08/30/2017. . TECHNIQUE: Volumetric scanning was performed using a multi-row detector CT scanner during bolus infu annalisa of 70 ml Omnipaque 350 (iohexol) nonionic water-soluble contrast as a single exam dose. The kelsey a was post processed with a variety of visualization algorithms including full volume maximum intensi ty projection and sliding thin slab reformation. Using automated exposure control and adjustment of the mA and/or kV according to patient size, radiation dose was kept as low as reasonably achievable t o obtain optimal diagnostic quality images. FINDINGS: Pulmonary Arteries: No filling defects are seen in the pulmonary arteries out to the subsegmental ve ssels. The left and right pulmonary arteries are normal in diameter. Lung: Diffuse infiltrates are noted bilaterally consistent with moderate pulmonary edema and/or pneum onia. Clinical correlation is recommended. Effusion: Small bilateral pleural effusions (right slightly larger than left) are noted. Mediastinum: No evidence of mediastinal or hilar adenopathy. Cardiomegaly is noted. Other: The axilla is unremarkable. CONCLUSION: 1. No evidence of pulmonary embolism. 2. Diffuse infiltrates bilaterally consistent with moderate pulmonary edema and/or pneumonia. Clinic al correlation is recommended. 3. Small bilateral pleural effusions (right slightly larger than left) are noted. 4. Cardiomegaly. Electronically signed by: Reynaldo Manuel MD 08/30/2017 7:23 PM EDT
[2017-08-30] MEDS ORDERED: BISACODYL 10 MG SUPP RECTAL PRN (20:00)
[2017-08-30] MEDS ORDERED: SODIUM CHLORIDE 0.9% FLUSH 10 ML FLUSH IV FLUSH PRN (20:00)
[2017-08-30] MEDS ORDERED: TEMAZEPAM 15 MG CAP PO PRN (20:00)
[2017-08-30] MEDS ORDERED: LACTULOSE SYRUP 20 GM/30 ML CUP PO PRN (20:00)
[2017-08-30] MEDS ORDERED: NURSING INFORMATION XX SCH (20:00)
[2017-08-30] MEDS ORDERED: ACETAMINOPHEN 325 MG TAB PO PRN (20:00)
[2017-08-30] MEDS ORDERED: SENNOSIDES 8.6 MG TAB PO PRN (20:00)
[2017-08-30] MEDS ORDERED: RESP: ALBUTEROL 2.5 MG/IPRATROPIUM 0.5 MG NEB (PRN) INH (20:00)
[2017-08-30] MEDS ORDERED: ERGOCALCIFEROL (VIT D2) 50,000 UNIT CAP PO SCH (20:00)
[2017-08-30] MEDS ORDERED: MAGNESIUM HYDROXIDE SUSP 30 ML CUP PO PRN (20:00)
[2017-08-30] MEDS ORDERED: CHLORHEXIDINE GLUCONATE 2 % 1 PACK (2 CLOTHS) TOP PRN (20:00)
[2017-08-30] MEDS ORDERED: MORPHINE SULFATE 4 MG/ML INJ IV PUSH PRN (20:00)
[2017-08-30] MEDS ORDERED: ONDANSETRON ODT 4 MG TAB PO PRN (20:30)
--- NOTE | 2017-08-30 20:42 | MB ---
cc: Gonsalo Lopez MD DATE: 08/30/2017 HISTORY OF PRESENT ILLNESS: Laci is a 52-year-old gentleman with history of CHF, cardiomyopathy, myocardial infarction and hypertension, who presents with chief complaint of dyspnea. The patient is currently heavily sedated with Ativan, on BiPAP, does not appear to be in any acute distress. Further history is obtained from the ER records. PAST MEDICAL HISTORY: CVA, diabetes mellitus, hypertension, myocardial infarction 08/2016, inguinal hernia repair. SOCIAL HISTORY: He uses crack cocaine and he drinks alcohol occasionally. Denies tobacco use. multi-drug resistant organism. MEDICATIONS PRIOR TO ADMISSION: Levemir, furosemide 20 mg daily, ergocalciferol, Coreg 6.25 q.12 hours, aspirin 81 mg daily, Norvasc 5 mg daily. MEDICATIONS IN THE HOSPITAL: He has received vancomycin, piperacillin, tazobactam. PHYSICAL EXAMINATION: VITAL SIGNS: Pulse ranging between 100 and 110, blood pressure 134/98, sats 100% on 50% BiPAP. Temperature 98.1, respiratory rate is 33. GENERAL: He is sedated, on BiPAP, in no acute distress. NECK: Supple. No JVD. No bruit. CARDIOVASCULAR: S1, S2. No murmurs, rubs or gallops. LUNGS: Clear to auscultation bilaterally. ABDOMEN: Soft, nontender, nondistended with positive bowel sounds. EXTREMITIES: Lower extremity edema. LABORATORY DATA: White count 6.7, hemoglobin 13.0, hematocrit 41.2, platelet count 213. Sodium 139, potassium 4.3, chloride 107, bicarbonate 19.7, BUN 25, creatinine 1.23, glucose 252. Lactic acid 2.4, AST 40. BNP is 1680, troponin is 0.03. INR is 1.1. Blood gas, pH 7.32, pCO2 of 37, pO2 of 41. EKG shows sinus tachycardia at 103 beats per minute, nonspecific ST-T wave changes and chest x-ray shows bilateral infiltrates, right greater than left. DIAGNOSES: 1. Decompensated congestive heart failure. 2. Cardiomyopathy. 3. Ischemic cardiomyopathy. 4. Coronary artery disease. 5. Hypoxic respiratory failure. 6. Diabetes mellitus. 7. Substance abuse. 8. Crack cocaine abuse. 9. Elevated liver enzymes. 10. Lactic acidosis. DISCUSSION: At this point in time, I will start the patient on Lasix 40 mg IV b.i.d. Follow trends of BMP. Check the patient's 2D echo. Start aspirin 81 mg daily. MD JANELLE Garncia/PHU , 06:09 PM , 08:41 PM
[2017-08-30] MEDS: HEPARIN SODIUM - SQ 10,000 UNITS/ML VIAL SQ SCH (20:56)
[2017-08-30] MEDS: DOCUSATE SODIUM 50 MG/SENNA 8.6 MG TAB PO SCH (20:56)
[2017-08-30] MEDS: CARVEDILOL 6.25 MG TAB PO SCH (20:56)
[2017-08-30] MEDS: SODIUM CHLORIDE 0.9% FLUSH 10 ML FLUSH IV FLUSH SCH (20:56)
[2017-08-30] MEDS: FAMOTIDINE 20 MG/2 ML VIAL IV PUSH SCH (20:56)
[2017-08-30] MEDS: RESP: ALBUTEROL 2.5 MG/IPRATROPIUM 0.5 MG NEB (SCH) INH (21:03)
[2017-08-30] MEDS ORDERED: DEXTROSE 50% IN WATER 50 ML VIAL(D50) IV PUSH PRN (23:00)
[2017-08-30] MEDS ORDERED: GLUCAGON 1 MG/ML VIAL OTHER PRN (23:00)
--- NOTE | 2017-08-30 23:04 | HHI.HP ---
HPI Service Critical Care Medicine Primary Care Physician No Primary Care Physician Admission Diagnosis Hypoxic Respiratory failure, PNA vs CHF Diagnosis: Travel History International Travel<30 Days: No Contact w/Intl Traveler <30 Da: No Traveled to Known Affected Are: No History of Present Illness 52-year-old male who about this time last year had a cardiac arrest due to cocaine and crack abuse requiring prolonged stay in the ICU and complicated by bedsores, presents today for an evaluation of 2-3 day history of shortness of breath. The patient has known history of cardiomyopathy. Family called 9 1 today when he became confused walked out into the living room wearing nothing but his underwear. The patient in the emergency department denied any chest pain abdominal pain nausea vomiting, he has had a cough nonproductive of sputum. No fevers. Chest x-ray shows enlarged cardiomegaly compared to previous images. The patient was evaluated by wood tile installation helper on-call in the emergency department with recommendations of conservative treatment at this time. 2D echo is pending. Due to hypoxemia and respiratory failure he was placed on a facemask BiPAP with significant and his oxygenation. Review of Systems ROS Unobtainable patient is on facemask BiPAP in respiratory distress Past Family Social History Allergies: Coded Allergies: *MDRO Multi-Drug Resistant Organism (Verified Adverse Reaction, Unknown, ) MRSA PCR Screen 10/16/16 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, 10/15/16, 10/25/16, 10/27/16 MRSA (back) 10/15/16 Past Medical History History of infected decubitus ulcer with cultures growing MRSA, enterococcus faecalis and enterococcus faecium VRE Hepatitis C Systolic CHF - EF 35-40%, mod-severe MR, Mild TR by echocardiogram 09/16/16 Cardiomyopathy Hypertension Diabetes History of PEA arrest 09/16/16 secondary to cocaine use Substance abuse with current use of crack cocaine Past Surgical History Bilateral hernia repair 2014 Wound VAC application, buttock wound Reported Medications Reported Meds & Active Scripts Active Levemir Inj (Insulin Detemir) 1,000 unit/ 10 ML Vial 20 Units SQ BID 30 Days Do not mix with any other Insulin. Furosemide 20 Mg Tab 20 Mg PO DAILY Ergocalciferol 50,000 Unit Cap 50,000 Units PO Q7D Coreg (Carvedilol) 6.25 Mg Tab 6.25 Mg PO Q12HR Aspirin Low Strength (Aspirin) 81 Mg Chew 81 Mg PO DAILY Norvasc (Amlodipine Besylate) 5 Mg Tab 5 Mg PO DAILY Active Ordered Medications Current Medications Medications (Trade) Dose Ordered Sig/Joshua Route PRN Reason Start Time Stop Time Status Last Admin Dose Admin Furosemide (Lasix Inj) 40 mg BID@ IV PUSH 08/31/17 09:00 Aspirin (Ecotrin Ec) 81 mg DAILY PO 08/31/17 09:00 Amlodipine Besylate (Norvasc) 5 mg DAILY PO 08/31/17 09:00 Aspirin (Aspirin Chew) 81 mg DAILY PO 08/31/17 09:00 Carvedilol (Coreg) 6.25 mg Q12HR PO 08/30/17 21:00 08/30/17 20:56 Ergocalciferol (Drisdol) 50,000 units Q7D PO 08/30/17 20:00 08/30/17 20:56 Sodium Chloride (NS Flush) 2 ml UNSCH PRN IV FLUSH FLUSH AFTER USING IV ACCESS 08/30/17 20:00 Sodium Chloride (NS Flush) 2 ml BID IV FLUSH 08/30/17 21:00 08/30/17 20:56 Acetaminophen (Tylenol) 650 mg Q6H PRN PO PAIN 1-5 AND/OR FEVER >101F 08/30/17 20:00 Morphine Sulfate (Morphine Inj) 2 mg Q2H PRN IV PUSH PAIN SCALE 6 TO 10 08/30/17 20:00 Famotidine (Pepcid Inj) 20 mg Q12HR IV PUSH 08/30/17 21:00 08/30/17 20:56 Ondansetron HCl (Zofran Odt) 4 mg Q6H PRN PO NAUSEA/VOMITING 08/30/17 20:30 Temazepam (Restoril) 15 mg HS PRN PO INSOMNIA 08/30/17 20:00 Albuterol/ Ipratropium (Duoneb Neb) 1 ampule Q6HR NEB INH 08/30/17 22:00 08/30/17 21:03 Albuterol/ Ipratropium (Duoneb Neb) 1 ampule Q2HR NEB PRN INH WHEEZING 08/30/17 20:00 Heparin Sodium (Porcine) (Heparin Inj) 5,000 units Q8H SQ 08/30/17 20:00 08/30/17 20:56 Miscellaneous Information ([facility]) 1 Q361D XX 08/30/17 20:00 Chlorhexidine Gluconate (Chlorhexidine 2% Cloth) 3 pack Taper DAILY@04 TOP 08/31/17 04:00 08/27/18 03:59 Chlorhexidine Gluconate (Chlorhexidine 2% Cloth) 3 pack UNSCH PRN TOP HYGIENIC CARE 08/30/17 20:00 Senna/Docusate Sodium (Rula-Colace) 1 tab BID PO 08/30/17 21:00 08/30/17 20:56 Magnesium Hydroxide (Milk Of Magnesia Liq) 30 ml Q12H PRN PO Mild constipation 08/30/17 20:00 Sennosides (Senokot) 17.2 mg Q12H PRN PO Moderate constipation 08/30/17 20:00 Bisacodyl (Dulcolax Supp) 10 mg DAILY PRN RECTAL SEVERE CONSITIPATION 08/30/17 20:00 Lactulose (Lactulose Liq) 30 ml DAILY PRN PO SEVERE CONSITIPATION 08/30/17 20:00 Family History No family history significant of early coronary artery disease Social History Patient has reported history of crack cocaine use, however unable to obtain when was the last time used. The patient has no reported history of tobacco or alcohol abuse. Physical Exam Vital Signs Vital Signs Date Time Temp Pulse Resp B/P (MAP) Pulse Ox O2 Delivery O2 Flow Rate FiO2 08/30/17 22:00 97.9 74 28 129/94 (106) 95 08/30/17 22:00 74 08/30/17 21:40 08/30/17 20:57 79 26 140/97 (111) 100 BiPAP 50 08/30/17 19:18 95 26 95 BiPAP 50 08/30/17 19:17 94 26 149/106 (120) 95 BiPAP 50 08/30/17 19:14 96 50 08/30/17 18:00 86 36 118/80 (93) 93 BiPAP 60 08/30/17 17:00 100 33 134/98 (110) 100 BiPAP 08/30/17 16:02 95 50 08/30/17 16:00 104 33 143/107 (119) 92 Room Air 08/30/17 15:30 104 37 142/99 (113) 92 Nasal Cannula 2.00 08/30/17 15:08 98.1 110 34 153/109 (124) 83 Room Air 08/30/17 15:08 34 83 Room Air 08/30/17 15:07 83 Room Air 08/30/17 15:07 Nasal Cannula 2.00 08/30/17 15:01 98.1 110 34 153/109 (124) 83 Physical Exam GENERAL: Well-nourished, well-developed patient. Moderate respiratory distress on facemask BiPAP SKIN: Warm and dry. HEAD: Normocephalic. EYES: No scleral icterus. No injection or drainage. NECK: Supple, trachea midline. No JVD or lymphadenopathy. CARDIOVASCULAR: Regular rate and rhythm without murmurs, gallops, or rubs. RESPIRATORY: Breath sounds equal bilaterally. No accessory muscle use. GASTROINTESTINAL: Abdomen soft, non-tender, nondistended. MUSCULOSKELETAL: No cyanosis, or edema. BACK: Nontender without obvious deformity. NEURO EXAM: Appears to be drowsy post Ativan injection, however arousable and following commands in all 4 extremities while awake. No focal weakness Laboratory Laboratory Tests Test 08/30/17 15:15 08/30/17 16:00 08/30/17 18:40 08/30/17 19:05 White Blood Count 6.7 Red Blood Count 4.95 Hemoglobin 13.0 Hematocrit 41.2 Mean Corpuscular Volume 83.3 Mean Corpuscular Hemoglobin 26.3 Mean Corpuscular Hemoglobin Concent 31.6 Red Cell Distribution Width 13.5 Platelet Count 213 Mean Platelet Volume 10.0 Neutrophils (%) (Auto) 69.2 Lymphocytes (%) (Auto) 20.6 Monocytes (%) (Auto) 8.7 Eosinophils (%) (Auto) 1.2 Basophils (%) (Auto) 0.3 Neutrophils # (Auto) 4.6 Lymphocytes # (Auto) 1.4 Monocytes # (Auto) 0.6 Eosinophils # (Auto) 0.1 Basophils # (Auto) 0.0 CBC Comment DIFF FINAL Differential Comment Prothrombin Time 11.3 Prothromb Time International Ratio 1.1 Activated Partial Thromboplast Time 22.2 Blood Urea Nitrogen 25 Creatinine 1.23 Random Glucose 252 Total Protein 6.8 Albumin 3.0 Calcium Level 7.9 Phosphorus Level 4.4 Magnesium Level 2.0 Alkaline Phosphatase 98 Aspartate Amino Transf (AST/SGOT) 40 Alanine Aminotransferase (ALT/SGPT) 58 Total Bilirubin 0.7 Sodium Level 139 Potassium Level 4.3 Chloride Level 107 Carbon Dioxide Level 19.7 Anion Gap 12 Estimat Glomerular Filtration Rate 75 Lactic Acid Level 2.4 1.6 Total Creatine Kinase 414 Creatine Kinase MB 8.8 Creatine Kinase MB % 2.1 Troponin I 0.03 B-Type Natriuretic Peptide 1680 Lipase 116 Blood Gas Puncture Site SWAN CLYDE LINE Blood Gas Patient Temperature 98.6 Venous Blood pH 7.32 Venous Blood Partial Pressure CO2 37 Venous Blood Partial Pressure O2 41 Venous Blood HCO3 18 Venous Blood Oxygen Saturation 66 Venous Blood Oxygen Content 9.7 Venous Blood Base Excess -6.7 Oxygen Delivery Device BIPAP Blood Gas Ventilator Setting 15/+5/50% Blood Gas Inspired Oxygen 50 Urine Color LIGHT-YELLOW Urine Turbidity CLEAR Urine pH 5.5 Urine Specific [place] 1.014 Urine Protein 30 Urine Glucose (UA) NEG Urine Ketones NEG Urine Occult Blood NEG Urine Nitrite NEG Urine Bilirubin NEG Urine Urobilinogen LESS THAN 2.0 Urine Leukocyte Esterase NEG Urine RBC LESS THAN 1 Urine WBC 1 Urine Squamous Epithelial Cells <1 Urine Mucus FEW Microscopic Urinalysis Comment CULT NOT INDICATED Test 08/30/17 20:50 08/30/17 21:50 Troponin I 0.05 Date/Time Source Procedure Growth Status 08/30/17 15:15 Blood Peripheral Aerobic Blood Culture Pending Received 08/30/17 15:15 Blood Peripheral Anaerobic Blood Culture Pending Received Result Diagram: 08/30/17 1515 08/30/17 1515 Imaging Last 24 hours Impressions Chest X-Ray 08/30/17 1503 Signed Impressions: CONCLUSION: Bilateral infiltrates, right more so than left. CT Angiography 08/30/17 0000 Signed Impressions: CONCLUSION: 1. No evidence of pulmonary embolism. 2. Diffuse infiltrates bilaterally consistent with moderate pulmonary edema an d/or pneumonia. Clinical correlation is recommended. 3. Small bilateral pleural effusions (right slightly larger than left) are not ed. 4. Cardiomegaly. Septic Shock Reassessment Septic shock perfusion: reassessment completed Caprini VTE Risk Assessment Caprini VTE Risk Assessment: Mod/High Risk (score >= 2) Caprini Risk Assessment Model Point Value = 1 Point Value = 2 Point Value = 3 Point Value = 5 Age 41-60 Minor surgery BMI > 25 kg/m2 Swollen legs Varicose veins or History of unexplained or recurrent spontaneous Oral contraceptives or hormone replacement Sepsis (< 1 month) Serious lung disease, including pneumonia (< 1 month) Abnormal pulmonary function Acute myocardial infarction Congestive heart failure (< 1 month) History of inflammatory bowel disease Medical patient at bed rest Age 61-74 Arthroscopic surgery Major open surgery (> 45 min) Laparoscopic surgery (> 45 min) Malignancy Confined to bed (> 72 hours) Immobilizing plaster cast Central venous access Age >= 75 History of VTE Family history of VTE Factor V Leiden Prothrombin [id number] Lupus anticoagulant Anticardiolipin antibodies Elevated serum homocysteine Heparin-induced thrombocytopenia Other congenital or acquired thrombophilia Stroke (< 1 month) Elective arthroplasty Hip, pelvis, or leg fracture Acute spinal cord injury (< 1 month) Prophylaxis Regimen Total Risk Factor Score Risk Level Prophylaxis Regimen 0-1 Low Early ambulation 2 Moderate Order ONE of the following: *Sequential Compression Device (SCD) *Heparin 5000 units SQ BID 3-4 Higher Order ONE of the following medications: *Heparin 5000 units SQ TID *Enoxaparin/Lovenox 40 mg SQ daily (WT < 150 kg, CrCl > 30 mL/min) *Enoxaparin/Lovenox 30 mg SQ daily (WT < 150 kg, CrCl > 10-29 mL/min) *Enoxaparin/Lovenox 30 mg SQ BID (WT < 150 kg, CrCl > 30 mL/min) AND/OR *Sequential Compression Device (SCD) 5 or more Highest Order ONE of the following medications: *Heparin 5000 units SQ TID (Preferred with Epidurals) *Enoxaparin/Lovenox 40 mg SQ daily (WT < 150 kg, CrCl > 30 mL/min) *Enoxaparin/Lovenox 30 mg SQ daily (WT < 150 kg, CrCl > 10-29 mL/min) *Enoxaparin/Lovenox 30 mg SQ BID (WT < 150 kg, CrCl > 30 mL/min) AND *Sequential Compression Device (SCD) Assessment and Plan Assessment and Plan Respiratory failure -Pulmonary edema versus pneumonia -Broad-spectrum antibiotic -Blood cultures sputum culture and urine antigen -DC or de-escalate per sensitivity results Cardiomyopathy -Cardiology consultation appreciated -2D echo pending -Lasix 40 IV twice daily -Aspirin 81 Polysubstance abuse -Drug screen toxicology pending -Benzos if needed Diabetes mellitus -Insulin sliding scale -Resume long-acting insulins when able to tolerate diet. Hypertension -Continue Norvasc -Resume lisinopril DVT GI prophylaxis -Enrique's and SCDs -Subcu heparin -Pepcid Critical Care: The total critical care time was 35 minutes. Time to perform other separately billable procedures was not included in the critical care time. Grant Dodd MD Aug 30, 2017 23:04
[2017-08-30] MEDS: PIPERACIL-TAZO 4.5 GM PREMIX 100 ML IV SCH (23:21)
[2017-08-31] VITALS (23 sets, daily range): BP systolic 121–138; BP diastolic 79–93; PULSE 67–134; RESP 15–32; TEMP 98.2–98.7; O2SAT 96–100
[2017-08-31] MEDS: AZTREONAM INJ 2,000 MG in SODIUM CHLORIDE 0.9% INJ 100 ML IV SCH ×4 (00:44→23:32)
[2017-08-31] MEDS: CHLORHEXIDINE GLUCONATE 2 % 1 PACK (2 CLOTHS) TOP SCH (04:00)
[2017-08-31] MEDS: RESP: ALBUTEROL 2.5 MG/IPRATROPIUM 0.5 MG NEB (SCH) INH ×4 (04:32→20:50)
[2017-08-31] MEDS: PIPERACIL-TAZO 4.5 GM PREMIX 100 ML IV SCH (04:39)
[2017-08-31] MEDS: HEPARIN SODIUM - SQ 10,000 UNITS/ML VIAL SQ SCH ×3 (04:39→20:46)
[2017-08-31 04:43] LABS: AUTOMATED NEUTROPHIL # 5.6 TH/MM3 (1.8-7.7); BASOPHIL % 0.4 % (0.0-2.0); EOSINOPHIL # 0.1 TH/MM3 (0-0.4); EOSINOPHIL % 0.9 % (0.0-4.0); HEMATOCRIT 40.8 % (39.0-51.0); HEMOGLOBIN 13.1 GM/DL (13.0-17.0); LYMPH % 17.8 % (9.0-44.0); LYMPHOCYTE # 1.4 TH/MM3 (1.0-4.8); MEAN CELL VOLUME 81.9 FL (80.0-100.0); MEAN CORPUSCULAR HEMOGLOBIN 26.2 PG (27.0-34.0); MEAN CORPUSCULAR HGB CONC 32.1 % (32.0-36.0); MEAN PLATELET VOLUME 9.8 FL (7.0-11.0); MONO % 8.4 % (0.0-8.0); MONOCYTE # 0.6 TH/MM3 (0-0.9); NEUT % 72.5 % (16.0-70.0); PLATELET COUNT 217 TH/MM3 (150-450); RED BLOOD COUNT 4.99 MIL/MM3 (4.50-5.90); RED CELL DISTRIBUTION WIDTH 13.2 % (11.6-17.2); WHITE BLOOD COUNT 7.7 TH/MM3 (4.0-11.0)
[2017-08-31 04:50] LABS: INTERNATIONAL NORMALIZED RATIO 1.1 RATIO; PROTHROMBIN TIME - PATIENT 11.2 SEC (9.8-11.6)
[2017-08-31 04:58] LABS: ALBUMIN 2.9 GM/DL (3.4-5.0); ALT (GPT) 55 U/L (12-78); AST (GOT) 30 U/L (15-37); BICARBONATE 27.8 MEQ/L (21.0-32.0); BLOOD UREA NITROGEN 22 MG/DL (7-18); CALCIUM 8.6 MG/DL (8.5-10.1); CHLORIDE 106 MEQ/L (98-107); CREATININE 1.26 MG/DL (0.60-1.30); GLOMERULAR FILTRATION RATE 73 ML/MIN (>89); GLUCOSE,RANDOM 157 MG/DL (74-106); PHOSPHORUS 3.7 MG/DL (2.5-4.9); SODIUM (NA) 143 MEQ/L (136-145)
[2017-08-31 05:12] LABS: ALKALINE PHOSPHATASE 97 U/L (45-117); DIGOXIN 0.5 NG/ML (0.8-2.0); TOTAL BILIRUBIN ADULT 1.2 MG/DL (0.2-1.0); TOTAL PROTEIN 6.5 GM/DL (6.4-8.2); TROPONIN I 0.08 NG/ML (0.02-0.05)
--- NOTE | 2017-08-31 05:45 | RADRPT ---
EXAM DATE: 08/31/2017 5:42 AM EDT AGE/SEX: 52 years / Male INDICATIONS: Shortness of breath, possible pulmonary disease. CLINICAL DATA: This is the patient's subsequent encounter. Patient reports that signs and symptoms h ave been present for 3 days and indicates a pain score of 1/10. MEDICAL/SURGICAL HISTORY: Hypertension. CO None. [place] [facility] [place]. . FINDINGS: There is been improvement with the patchy infiltrate in the right lung base compared to the prior ashlee dy. There is a stable mild infiltrate in the left lung base. Otherwise, the rest the lung bangura are grossly clear. The heart size is stable. There is no pneumothorax. Bony structures are stable. CONCLUSION: Mild improvement in the right lower lung infiltrate compared to the prior study. Otherwise, stable ex am. Electronically signed by: Darvin Tamayo MD 08/31/2017 5:44 AM EDT
[2017-08-31] MEDS ORDERED: INSULIN ASPART SUPPLEMENTAL SCALE SQ SCH (08:00)
[2017-08-31] MEDS ORDERED: SPIRONOLACTONE 25 MG TAB PO ONE (08:30)
[2017-08-31] MEDS ORDERED: DIGOXIN 0.25 MG TAB PO ONE (08:30)
[2017-08-31] MEDS: ASPIRIN 81 MG CHEW TAB PO SCH (09:00)
--- NOTE | 2017-08-31 09:31 | EKG ---
Date Performed: 08/31/2017 Time Performed: 01:54:36 PTAGE: 52 years EKG: Sinus rhythm . Short ND interval Prolonged QT interval Left ventricular hypertrophy Septal T wave changes are nons pecific Abnormal ECG PREVIOUS TRACING 08/30/2017 20.42 Since the previous tracing, no significant change noted DOCTOR: Stevie Soriano Interpretating Date/Time 08/31/2017 09:30:54
--- NOTE | 2017-08-31 09:31 | EKG ---
Date Performed: 08/30/2017 Time Performed: 20:42:21 PTAGE: 52 years EKG: Sinus rhythm LEFT ATRIAL ENLARGEMENT POSSIBLE LEFT VENTRICULAR HYPERTROPHY NONSPECIFIC T-WAVE ABNORMALITY PROLONG ED QT INTERVAL ABNORMAL ECG PREVIOUS TRACING : 08/30/2017 15.06 Since the previous tracing, no significant change noted DOCTOR: Stevie Soriano Interpretating Date/Time 08/31/2017 09:31:32
--- NOTE | 2017-08-31 09:32 | EKG ---
Date Performed: 08/30/2017 Time Performed: 15:06:35 PTAGE: 52 years EKG: SINUS TACHYCARDIA POSSIBLE RIGHT ATRIAL ENLARGEMENT LEFT ATRIAL ENLARGEMENT LEFT VENTRICULA R HYPERTROPHY AND ST-T CHANGE ABNORMAL ECG PREVIOUS TRACING : 11/10/2016 04.33 Since the previous tracing, no significant change noted DOCTOR: Stevie Soriano Interpretating Date/Time 08/31/2017 09:31:56
[2017-08-31] MEDS: ASPIRIN EC 81 MG TABEC PO SCH ×2 (09:36→12:22)
[2017-08-31] MEDS: DOCUSATE SODIUM 50 MG/SENNA 8.6 MG TAB PO SCH ×2 (09:37→20:46)
[2017-08-31] MEDS: CARVEDILOL 6.25 MG TAB PO SCH (09:37)
[2017-08-31] MEDS: FAMOTIDINE 20 MG/2 ML VIAL IV PUSH SCH (09:37)
[2017-08-31] MEDS: amLODIPine BESYLATE 5 MG TAB PO SCH (09:37)
[2017-08-31] MEDS: SODIUM CHLORIDE 0.9% FLUSH 10 ML FLUSH IV FLUSH SCH ×2 (09:38→20:46)
--- NOTE | 2017-08-31 10:53 | HHI.CCPN ---
Subjective Remarks/Hospital Course 52-year-old male who about this time last year had a cardiac arrest due to cocaine and crack abuse requiring prolonged stay in the ICU and complicated by bedsores, presents today for an evaluation of 2-3 day history of shortness of breath. The patient has known history of cardiomyopathy. Family called 9 1 today when he became confused walked out into the living room wearing nothing but his underwear. The patient in the emergency department denied any chest pain abdominal pain nausea vomiting, he has had a cough nonproductive of sputum. No fevers. Chest x-ray shows enlarged cardiomegaly compared to previous images. The patient was evaluated by passenger relations representative on-call in the emergency department with recommendations of conservative treatment at this time. 2D echo is pending. Due to hypoxemia and respiratory failure he was placed on a facemask BiPAP with significant and his oxygenation. 08/31 Patient is on BIPAP 15/5 with 40% FIO2> Afebrile. Objective Vital Signs Date Time Temp Pulse Resp B/P (MAP) Pulse Ox O2 Delivery O2 Flow Rate FiO2 08/31/17 08:28 98 Nasal Cannula 4.00 08/31/17 06:00 75 08/31/17 06:00 20 127/91 (103) 08/31/17 04:32 50 08/31/17 04:00 98.6 Intake and Output 08/31/17 08/31/17 09/01/17 08:00 16:00 00:00 Intake Total 640 ml Output Total 850 ml Balance -210 ml Result Diagram: 08/31/17 0410 08/31/17 0410 Other Results Laboratory Tests Test 08/30/17 15:15 08/30/17 16:00 08/30/17 18:40 08/30/17 19:05 White Blood Count 6.7 TH/MM3 Red Blood Count 4.95 MIL/MM3 Hemoglobin 13.0 GM/DL Hematocrit 41.2 % Mean Corpuscular Volume 83.3 FL Mean Corpuscular Hemoglobin 26.3 PG Mean Corpuscular Hemoglobin Concent 31.6 % Red Cell Distribution Width 13.5 % Platelet Count 213 TH/MM3 Mean Platelet Volume 10.0 FL Neutrophils (%) (Auto) 69.2 % Lymphocytes (%) (Auto) 20.6 % Monocytes (%) (Auto) 8.7 % Eosinophils (%) (Auto) 1.2 % Basophils (%) (Auto) 0.3 % Neutrophils # (Auto) 4.6 TH/MM3 Lymphocytes # (Auto) 1.4 TH/MM3 Monocytes # (Auto) 0.6 TH/MM3 Eosinophils # (Auto) 0.1 TH/MM3 Basophils # (Auto) 0.0 TH/MM3 CBC Comment DIFF FINAL Differential Comment Prothrombin Time 11.3 SEC Prothromb Time International Ratio 1.1 RATIO Activated Partial Thromboplast Time 22.2 SEC Blood Urea Nitrogen 25 MG/DL Creatinine 1.23 MG/DL Random Glucose 252 MG/DL Total Protein 6.8 GM/DL Albumin 3.0 GM/DL Calcium Level 7.9 MG/DL Phosphorus Level 4.4 MG/DL Magnesium Level 2.0 MG/DL Alkaline Phosphatase 98 U/L Aspartate Amino Transf (AST/SGOT) 40 U/L Alanine Aminotransferase (ALT/SGPT) 58 U/L Total Bilirubin 0.7 MG/DL Sodium Level 139 MEQ/L Potassium Level 4.3 MEQ/L Chloride Level 107 MEQ/L Carbon Dioxide Level 19.7 MEQ/L Anion Gap 12 MEQ/L Estimat Glomerular Filtration Rate 75 ML/MIN Lactic Acid Level 2.4 mmol/L 1.6 mmol/L Total Creatine Kinase 414 U/L Creatine Kinase MB 8.8 NG/ML Creatine Kinase MB % 2.1 % Troponin I 0.03 NG/ML B-Type Natriuretic Peptide 1680 PG/ML Lipase 116 U/L Blood Gas Puncture Site SWAN CLYDE LINE Blood Gas Patient Temperature 98.6 Venous Blood pH 7.32 Venous Blood Partial Pressure CO2 37 mmHg Venous Blood Partial Pressure O2 41 mmHg Venous Blood HCO3 18 mmol/L Venous Blood Oxygen Saturation 66 % Venous Blood Oxygen Content 9.7 Vol % Venous Blood Base Excess -6.7 mmol/L Oxygen Delivery Device BIPAP Blood Gas Ventilator Setting 15/+5/50% Blood Gas Inspired Oxygen 50 % Urine Color LIGHT-YELLOW Urine Turbidity CLEAR Urine pH 5.5 Urine Specific [place] 1.014 Urine Protein 30 mg/dL Urine Glucose (UA) NEG mg/dL Urine Ketones NEG mg/dL Urine Occult Blood NEG Urine Nitrite NEG Urine Bilirubin NEG Urine Urobilinogen LESS THAN 2.0 MG/DL Urine Leukocyte Esterase NEG Urine RBC LESS THAN 1 /hpf Urine WBC 1 /hpf Urine Squamous Epithelial Cells <1 /hpf Urine Mucus FEW /lpf Microscopic Urinalysis Comment CULT NOT INDICATED Urine Opiates Screen NEG Urine Barbiturates Screen NEG Urine Amphetamines Screen NEG Urine Benzodiazepines Screen NEG Urine Cocaine Screen POS Urine Cannabinoids Screen POS Test 08/30/17 20:50 08/30/17 21:50 08/31/17 04:10 Troponin I 0.05 NG/ML 0.08 NG/ML Nasal Screen MRSA (PCR) MRSA DETECTED White Blood Count 7.7 TH/MM3 Red Blood Count 4.99 MIL/MM3 Hemoglobin 13.1 GM/DL Hematocrit 40.8 % Mean Corpuscular Volume 81.9 FL Mean Corpuscular Hemoglobin 26.2 PG Mean Corpuscular Hemoglobin Concent 32.1 % Red Cell Distribution Width 13.2 % Platelet Count 217 TH/MM3 Mean Platelet Volume 9.8 FL Neutrophils (%) (Auto) 72.5 % Lymphocytes (%) (Auto) 17.8 % Monocytes (%) (Auto) 8.4 % Eosinophils (%) (Auto) 0.9 % Basophils (%) (Auto) 0.4 % Neutrophils # (Auto) 5.6 TH/MM3 Lymphocytes # (Auto) 1.4 TH/MM3 Monocytes # (Auto) 0.6 TH/MM3 Eosinophils # (Auto) 0.1 TH/MM3 Basophils # (Auto) 0.0 TH/MM3 CBC Comment DIFF FINAL Differential Comment Prothrombin Time 11.2 SEC Prothromb Time International Ratio 1.1 RATIO Activated Partial Thromboplast Time 25.7 SEC Blood Urea Nitrogen 22 MG/DL Creatinine 1.26 MG/DL Random Glucose 157 MG/DL Total Protein 6.5 GM/DL Albumin 2.9 GM/DL Calcium Level 8.6 MG/DL Phosphorus Level 3.7 MG/DL Magnesium Level 2.0 MG/DL Alkaline Phosphatase 97 U/L Aspartate Amino Transf (AST/SGOT) 30 U/L Alanine Aminotransferase (ALT/SGPT) 55 U/L Total Bilirubin 1.2 MG/DL Sodium Level 143 MEQ/L Potassium Level 4.0 MEQ/L Chloride Level 106 MEQ/L Carbon Dioxide Level 27.8 MEQ/L Anion Gap 9 MEQ/L Estimat Glomerular Filtration Rate 73 ML/MIN Lactic Acid Level 0.7 mmol/L Total Creatine Kinase 386 U/L Creatine Kinase MB 9.8 NG/ML Creatine Kinase MB % 2.5 % B-Type Natriuretic Peptide 1876 PG/ML Digoxin Level 0.5 NG/ML Imaging Last Impressions Chest X-Ray 08/31/17 Signed Impressions: CONCLUSION: Mild improvement in the right lower lung infiltrate compared to the prior study . Otherwise, stable exam. CT Angiography 08/30/17 Signed Impressions: CONCLUSION: 1. No evidence of pulmonary embolism. 2. Diffuse infiltrates bilaterally consistent with moderate pulmonary edema an d/or pneumonia. Clinical correlation is recommended. 3. Small bilateral pleural effusions (right slightly larger than left) are not ed. 4. Cardiomegaly. Objective Remarks GENERAL: Well-nourished, well-developed patient on BIPAP. SKIN: Warm and dry. HEAD: Normocephalic. EYES: No scleral icterus. No injection or drainage. NECK: Supple, trachea midline. No JVD or lymphadenopathy. CARDIOVASCULAR: Regular rate and rhythm without murmurs, gallops, or rubs. RESPIRATORY: Breath sounds equal bilaterally. No accessory muscle use. GASTROINTESTINAL: Abdomen soft, non-tender, nondistended. MUSCULOSKELETAL: No cyanosis, or edema. BACK: Nontender without obvious deformity. NEURO EXAM: Awake A/P Assessment and Plan Respiratory failure -Pulmonary edema versus pneumonia Cardiomyopathy Polysubstance abuse ( UDS + Cocaine, Cannabinoids) Diabetes mellitus Hypertension Plan Neuro: Awake, alert. Monitor neuro status Polysubstance abuse ( UDS + Cocaine, Cannabinoids) Pulm: Continue with oxygen keep sats >92% Bronchodilators, NIPPV PRN for resp distress CTA chest: No PE CV: Monitor HR and BP keep MAP>65mmHg Cards is following- Dr. Lopez For 2D echo to eval LV function. UDS: + Cocaine, cannabinoids On ASA , Aldactone 25mg BID, Norvasc 5mg daily, Digoxin 0.2mg daily, Lasix 40mg BID Monitor renal function, electrolytes replacement as needed. GI: On PO heart healthy diet ID: Continue empiric abx ( Aztreonam, Vanco x1 on 08/30), d/c Zosyn, monitor for signs of infections ( Fever, WBC) Follow up on blood culture Heme: Monitor CBC Endo: SSI for glycemic control DVT GI prophylaxis -Enrique's and SCDs -Subcu heparin -Pepcid Will sign off and transfer care to [facility] Level 3 Sara Cotton MD Aug 31, 2017 10:53
[2017-08-31] MEDS ORDERED: MAGNESIUM SULFATE INJ 4 GM in SODIUM CHLORIDE 0.9% INJ 92 ML IV PRN (11:00)
[2017-08-31] MEDS ORDERED: POTASSIUM PHOSPHATE INJ 30 MMOL in SODIUM CHLOR 0.9% 250 ML INJ 250 ML IV PRN (11:00)
[2017-08-31] MEDS ORDERED: POTASSIUM CHLOR 40 MEQ PREMIX 100 ML IV PRN ×2 (11:00)
[2017-08-31] MEDS ORDERED: POTASSIUM PHOSPHATE MONOBASIC 500 MG TAB PO PRN (11:00)
[2017-08-31] MEDS ORDERED: POTASSIUM CHLORIDE 25 MEQ EFFERVESCENT TAB PO PRN (11:00)
[2017-08-31] MEDS ORDERED: MAGNESIUM OXIDE 400 MG TAB PO PRN (11:00)
[2017-08-31] MEDS ORDERED: POTASSIUM PHOSPHATE MONOBASIC 500 MG TAB PO/TUBE PRN (11:00)
[2017-08-31] MEDS ORDERED: MAGNESIUM SULFATE INJ 2 GM in SODIUM CHLORIDE 0.9% INJ 96 ML IV PRN (11:00)
[2017-08-31] MEDS ORDERED: SODIUM PHOSPHATE INJ 30 MMOL in SODIUM CHLOR 0.9% 250 ML INJ 240 ML IV PRN (11:00)
[2017-08-31] MEDS ORDERED: POTASSIUM CHLOR 20 MEQ PREMIX 100 ML IV PRN ×2 (11:00)
[2017-08-31] MEDS: INSULIN ASPART SUPPLEMENTAL SCALE SQ SCH ×3 (12:00→23:34)
[2017-08-31] MEDS: SPIRONOLACTONE 25 MG TAB PO SCH ×2 (12:22→18:00)
[2017-08-31] MEDS: FUROSEMIDE 40 MG/4 ML VIAL IV PUSH SCH ×2 (12:23→18:33)
[2017-08-31] MEDS: DIGOXIN 0.25 MG TAB PO SCH (12:24)
--- NOTE | 2017-08-31 14:02 | ECHRPT ---
Indication: HEART FAILURE CONCLUSIONS Moderately dilated left ventricle. Wall thickness is normal. The left ventricular systolic function is severely reduced with an estimated ejection fraction of 25 %. Global hypokinesis. The left atrial size is mildly dilated. [id number] eccentrically directed mitral valve regurgitation. Trileaflet aortic valve. Trace aortic valve regurgitation. There is mild tricuspid valve regurgitation. The estimated pulmonary arterial pressure is 47 mmHg. BP: / HR: Rhythm: Sinus MEASUREMENTS (Male / Female) Normal Values Technical Quality:Fair 2D ECHO LV Diastolic Diameter PLAX 7.2 cm 4.2 - 5.9 / 3.9 - 5.3 cm LV Systolic Diameter PLAX 6.7 cm IVS Diastolic Thickness 1.0 cm 0.6 - 1.0 / 0.6 - 0.9 cm LVPW Diastolic Thickness 1.0 cm 0.6 - 1.0 / 0.6 - 0.9 cm LV Relative Wall Thickness 0.3 RV Internal Dim ED PLAX 1.2 cm LVOT Diameter 2.2 cm Aortic Root Diameter 2.9 cm LA Systolic Diameter LX 3.8 cm 3.0 - 4.0 / 2.7 - 3.8 cm M-MODE AV Cusp Separation MM 1.5 cm DOPPLER AV Peak Velocity 119.0 cm/s AV Peak Gradient 5.7 mmHg AV Mean Gradient 4.0 mmHg AV Velocity Time Integral 15.2 cm LVOT Peak Velocity 85.0 cm/s LVOT Peak Gradient 2.9 mmHg LVOT Velocity Time Integral 12.5 cm AV Area Cont Eq vti 3.1 cm AV Area Cont Eq pk 2.7 cm Mitral E Point Velocity 137.0 cm/s Mitral A Point Velocity 61.2 cm/s Mitral E to A Ratio 2.2 LV E' Lateral Velocity 7.1 cm/s Mitral E to LV E' Lateral Ratio 19.2 LV E' Septal Velocity 6.6 cm/s Mitral E to LV E' Septal Ratio 20.7 TR Peak Velocity 305.0 cm/s TR Peak Gradient 37.2 mmHg Right Atrial Pressure 10.0 mmHg Pulmonary Artery Systolic Pressu 47.2 mmHg Right Ventricular Systolic Press 47.2 mmHg PV Peak Velocity 61.7 cm/s PV Peak Gradient 1.5 mmHg FINDINGS LEFT VENTRICLE Moderately dilated left ventricle. Wall thickness is normal. The left ventricular systolic function is severely reduced with an estimated ejection fraction of 25 %. Global hypokinesis. RIGHT VENTRICLE Normal right ventricular size and systolic function. LEFT ATRIUM The left atrial size is mildly dilated. RIGHT ATRIUM The right atrial size is upper limits of normal. ATRIAL SEPTUM No atrial level shunt is demonstrated by color flow Doppler interrogation. AORTA The aortic root and proximal ascending aorta are normal in size on limited imaging. MITRAL VALVE [id number] mitral valve regurgitation. AORTIC VALVE Trileaflet aortic valve. Trace aortic valve regurgitation. TRICUSPID VALVE There is mild tricuspid valve regurgitation. The estimated pulmonary arterial pressure is 47 mmHg. PULMONARY VALVE Trivial pulmonary valve regurgitation. VESSELS The inferior vena cava is normal in size. PERICARDIUM No pericardial effusion. Jose Iyer MD (Electronically Signed) Final Date:31 August 2017 14:01
--- NOTE | 2017-08-31 15:20 | PD.CARD.PN ---
Subjective Subjective Remarks alert in nad Objective Medications Current Medications Medications (Trade) Dose Ordered Sig/Joshua Route Start Time Stop Time Status Last Admin (Lasix Inj) 40 mg BID@ IV PUSH 08/31/17 09:00 08/31/17 12:23 (Ecotrin Ec) 81 mg DAILY PO 08/31/17 09:00 08/31/17 12:22 (Norvasc) 5 mg DAILY PO 08/31/17 09:00 08/31/17 09:37 (Aspirin Chew) 81 mg DAILY PO 08/31/17 09:00 (Drisdol) 50,000 units Q7D PO 08/30/17 20:00 08/30/17 20:56 (NS Flush) 2 ml UNSCH PRN IV FLUSH 08/30/17 20:00 (NS Flush) 2 ml BID IV FLUSH 08/30/17 21:00 08/31/17 09:38 (Tylenol) 650 mg Q6H PRN PO 08/30/17 20:00 (Morphine Inj) 2 mg Q2H PRN IV PUSH 08/30/17 20:00 (Zofran Odt) 4 mg Q6H PRN PO 08/30/17 20:30 (Restoril) 15 mg HS PRN PO 08/30/17 20:00 (Duoneb Neb) 1 ampule Q6HR NEB INH 08/30/17 22:00 08/31/17 08:15 (Duoneb Neb) 1 ampule Q2HR NEB PRN INH 08/30/17 20:00 (Heparin Inj) 5,000 units Q8H SQ 08/30/17 20:00 08/31/17 04:39 [place] [place] 1 Q361D XX 08/30/17 20:00 08/30/17 22:00 (Chlorhexidine 2% Cloth) 3 pack Taper DAILY@04 TOP 08/31/17 04:00 08/27/18 03:59 08/31/17 04:00 (Chlorhexidine 2% Cloth) 3 pack UNSCH PRN TOP 08/30/17 20:00 (Rula-Colace) 1 tab BID PO 08/30/17 21:00 08/31/17 09:37 (Milk Of Magnesia Liq) 30 ml Q12H PRN PO 08/30/17 20:00 (Senokot) 17.2 mg Q12H PRN PO 08/30/17 20:00 (Dulcolax Supp) 10 mg DAILY PRN RECTAL 08/30/17 20:00 (Lactulose Liq) 30 ml DAILY PRN PO 08/30/17 20:00 Aztreonam 2000 mg/ Sodium Chloride 100 ml @ 200 mls/hr Q8H IV 08/30/17 23:00 08/31/17 06:23 (D50w (Vial) Inj) 50 ml UNSCH PRN IV PUSH 08/30/17 23:00 (Glucagon Inj) 1 mg UNSCH PRN OTHER 08/30/17 23:00 (Pneumovax-23 Inj) 25 mcg ONCE ONCE IM 09/01/17 10:00 09/01/17 10:01 (Aldactone) 25 mg BID@18 PO 08/31/17 09:00 08/31/17 12:22 (Lanoxin) 0.25 mg DAILY PO 08/31/17 09:00 08/31/17 12:24 (NovoLOG SUPPLEMENTAL SCALE) 1 Q6HR SQ 08/31/17 12:00 Potassium Chloride 100 ml @ 50 mls/hr Q2H PRN IV 08/31/17 11:00 Potassium Chloride 100 ml @ 50 mls/hr Q2H PRN IV 08/31/17 11:00 (K-Lyte Cl Eff) 50 meq UNSCH PRN PO 08/31/17 11:00 Potassium Chloride 100 ml @ 25 mls/hr UNSCH PRN IV 08/31/17 11:00 Potassium Chloride 100 ml @ 50 mls/hr Q2H PRN IV 08/31/17 11:00 Magnesium Sulfate 4 gm/Sodium Chloride 100 ml @ 50 mls/hr UNSCH PRN IV 08/31/17 11:00 (Mag-Ox) 800 mg UNSCH PRN PO 08/31/17 11:00 Magnesium Sulfate 2 gm/Sodium Chloride 100 ml @ 50 mls/hr UNSCH PRN IV 08/31/17 11:00 (K-Phos) 2,000 mg Q4H PRN PO 08/31/17 11:00 Sodium Phosphate 30 mmol/Sodium Chloride 250 ml @ 42 mls/hr UNSCH PRN IV 08/31/17 11:00 (K-Phos) 2,000 mg UNSCH PRN PO/TUBE 08/31/17 11:00 Potassium Phosphate 30 mmol/ Sodium Chloride 260 ml @ 42 mls/hr UNSCH PRN IV 08/31/17 11:00 (Pepcid) 20 mg BID PO 08/31/17 21:00 Vital Signs / I&O Vital Signs Date Time Temp Pulse Resp B/P (MAP) Pulse Ox O2 Delivery O2 Flow Rate FiO2 08/31/17 08:28 98 Nasal Cannula 4.00 08/31/17 06:00 75 08/31/17 06:00 75 20 127/91 (103) 99 08/31/17 05:00 73 25 131/93 (106) 100 08/31/17 04:32 99 50 08/31/17 04:00 98.6 75 15 130/86 (101) 100 08/31/17 04:00 75 08/31/17 03:00 72 26 129/85 (100) 100 08/31/17 02:00 72 20 131/88 (102) 100 08/31/17 02:00 72 08/31/17 01:06 100 50 08/31/17 01:00 67 23 121/79 (93) 99 08/31/17 00:00 70 08/31/17 00:00 98.4 70 24 123/82 (96) 98 08/30/17 23:00 68 25 122/82 (95) 97 08/30/17 22:00 97.9 74 28 129/94 (106) 95 08/30/17 22:00 74 08/30/17 21:40 08/30/17 20:57 79 26 140/97 (111) 100 BiPAP 50 08/30/17 19:18 95 26 95 BiPAP 50 08/30/17 19:17 94 26 149/106 (120) 95 BiPAP 50 08/30/17 19:14 96 50 08/30/17 18:00 86 36 118/80 (93) 93 BiPAP 60 08/30/17 17:00 100 33 134/98 (110) 100 BiPAP 08/30/17 16:02 95 50 08/30/17 16:00 104 33 143/107 (119) 92 Room Air 08/30/17 15:30 104 37 142/99 (113) 92 Nasal Cannula 2.00 08/30/17 15:30 92 Nasal Cannula 2.00 I/O 08/30/17 08/30/17 08/30/17 08/31/17 08/31/17 08/31/17 07:00 15:00 23:00 07:00 15:00 23:00 Intake Total 350 ml 640 ml Output Total 3075 ml 1075 ml Balance -2725 ml -435 ml Intake Oral 0 ml 240 ml IV Total 350 ml 400 ml Output Urine Total 3075 ml 1075 ml # Voids 5 # Bowel Movements 0 0 Physical Exam GENERAL: SKIN: Warm and dry. HEAD: Normocephalic. EYES: No scleral icterus. No injection or drainage. NECK: Supple, trachea midline. No JVD or lymphadenopathy. CARDIOVASCULAR: Regular rate and rhythm without murmurs, gallops, or rubs. RESPIRATORY: Breath sounds equal bilaterally. No accessory muscle use. GASTROINTESTINAL: Abdomen soft, non-tender, nondistended. MUSCULOSKELETAL: No cyanosis, or edema. BACK: Nontender without obvious deformity. No CVA tenderness. Laboratory Laboratory Tests Test 08/30/17 16:00 08/30/17 18:40 08/30/17 19:05 08/30/17 20:50 Blood Gas Puncture Site SWAN CLYDE LINE Blood Gas Patient Temperature 98.6 Venous Blood pH 7.32 Venous Blood Partial Pressure CO2 37 mmHg Venous Blood Partial Pressure O2 41 mmHg Venous Blood HCO3 18 mmol/L Venous Blood Oxygen Saturation 66 % Venous Blood Oxygen Content 9.7 Vol % Venous Blood Base Excess -6.7 mmol/L Oxygen Delivery Device BIPAP Blood Gas Ventilator Setting 15/+5/50% Blood Gas Inspired Oxygen 50 % Lactic Acid Level 1.6 mmol/L Urine Color LIGHT-YELLOW Urine Turbidity CLEAR Urine pH 5.5 Urine Specific Wana 1.014 Urine Protein 30 mg/dL Urine Glucose (UA) NEG mg/dL Urine Ketones NEG mg/dL Urine Occult Blood NEG Urine Nitrite NEG Urine Bilirubin NEG Urine Urobilinogen LESS THAN 2.0 MG/DL Urine Leukocyte Esterase NEG Urine RBC LESS THAN 1 /hpf Urine WBC 1 /hpf Urine Squamous Epithelial Cells <1 /hpf Urine Mucus FEW /lpf Microscopic Urinalysis Comment CULT NOT INDICATED Urine Opiates Screen NEG Urine Barbiturates Screen NEG Urine Amphetamines Screen NEG Urine Benzodiazepines Screen NEG Urine Cocaine Screen POS Urine Cannabinoids Screen POS Troponin I 0.05 NG/ML Test 6/3/18 21:50 08/31/17 04:10 08/31/17 13:31 Nasal Screen MRSA (PCR) MRSA DETECTED White Blood Count 7.7 TH/MM3 Red Blood Count 4.99 MIL/MM3 Hemoglobin 13.1 GM/DL Hematocrit 40.8 % Mean Corpuscular Volume 81.9 FL Mean Corpuscular Hemoglobin 26.2 PG Mean Corpuscular Hemoglobin Concent 32.1 % Red Cell Distribution Width 13.2 % Platelet Count 217 TH/MM3 Mean Platelet Volume 9.8 FL Neutrophils (%) (Auto) 72.5 % Lymphocytes (%) (Auto) 17.8 % Monocytes (%) (Auto) 8.4 % Eosinophils (%) (Auto) 0.9 % Basophils (%) (Auto) 0.4 % Neutrophils # (Auto) 5.6 TH/MM3 Lymphocytes # (Auto) 1.4 TH/MM3 Monocytes # (Auto) 0.6 TH/MM3 Eosinophils # (Auto) 0.1 TH/MM3 Basophils # (Auto) 0.0 TH/MM3 CBC Comment DIFF FINAL Differential Comment Prothrombin Time 11.2 SEC Prothromb Time International Ratio 1.1 RATIO Activated Partial Thromboplast Time 25.7 SEC Blood Urea Nitrogen 22 MG/DL Creatinine 1.26 MG/DL Random Glucose 157 MG/DL Total Protein 6.5 GM/DL Albumin 2.9 GM/DL Calcium Level 8.6 MG/DL Phosphorus Level 3.7 MG/DL 4.9 MG/DL Magnesium Level 2.0 MG/DL Alkaline Phosphatase 97 U/L Aspartate Amino Transf (AST/SGOT) 30 U/L Alanine Aminotransferase (ALT/SGPT) 55 U/L Total Bilirubin 1.2 MG/DL Sodium Level 143 MEQ/L Potassium Level 4.0 MEQ/L Chloride Level 106 MEQ/L Carbon Dioxide Level 27.8 MEQ/L Anion Gap 9 MEQ/L Estimat Glomerular Filtration Rate 73 ML/MIN Lactic Acid Level 0.7 mmol/L Total Creatine Kinase 386 U/L Creatine Kinase MB 9.8 NG/ML Creatine Kinase MB % 2.5 % Troponin I 0.08 NG/ML B-Type Natriuretic Peptide 1876 PG/ML Digoxin Level 0.5 NG/ML Imaging Last 24 hours Impressions Chest X-Ray 08/31/17 0000 Signed Impressions: CONCLUSION: Mild improvement in the right lower lung infiltrate compared to the prior study . Otherwise, stable exam. Assessment and Plan Problem List: (1) Mitral regurgitation ICD Codes: I34.0 - Nonrheumatic mitral (valve) insufficiency (2) Pulmonary HTN ICD Codes: I27.20 - Pulmonary hypertension, unspecified (3) Systolic CHF, acute ICD Codes: I50.21 - Acute systolic (congestive) heart failure Status: Acute (4) CHF (congestive heart failure) ICD Codes: I50.9 - Heart failure, unspecified Status: Chronic (5) Hepatitis C ICD Codes: B19.20 - Unspecified viral hepatitis C without hepatic coma Status: Acute (6) Cocaine abuse ICD Codes: F14.10 - Cocaine abuse, uncomplicated Status: Chronic (7) Diabetes mellitus ICD Codes: E11.9 - Diabetes mellitus Status: Chronic (8) Cardiomyopathy ICD Codes: I42.9 - Cardiomyopathy, unspecified Status: Acute (9) Pulmonary edema ICD Codes: J81.1 - Chronic pulmonary edema Status: Acute (10) Illicit drug use ICD Codes: F19.90 - Other psychoactive substance use, unspecified, uncomplicated Status: Acute Assessment and Plan 1.) Cardiomyopathy with moderate to severe mr - rhc/lhc are medically necessary to rule out ischemic etiology; i explained to the patient with nurse in the room that the risk of cath/pci is 10% chance of , mi, cva, need for cabg/ surgery/dialysis/blood transfusion, bleeding, infection, anaphylaxis, arrythmia ; he understands and consents to procedure; continue lasix, add dig, strongly advised patient to discontinue drugs; prognosis appears very poor, f/u bnp, bmp , mag, dig level Gonsalo Lopez MD Aug 31, 2017 15:20
[2017-08-31] MEDS: FAMOTIDINE 20 MG TAB PO SCH (20:46)
[2017-08-31 21:56] LABS: CALCIUM 9.7 MG/DL (8.5-10.1); CREATININE 1.73 MG/DL (0.60-1.30); MAGNESIUM 1.9 MG/DL (1.5-2.5)
[2017-09-01] VITALS (19 sets, daily range): BP systolic 126–152; BP diastolic 62–106; PULSE 72–88; RESP 12–27; TEMP 97.9–98.8; O2SAT 96–97
[2017-09-01] MEDS ORDERED: LABETALOL HCL 100 MG/20 ML VIAL IV PUSH PRN (03:15)
[2017-09-01] MEDS: HEPARIN SODIUM - SQ 10,000 UNITS/ML VIAL SQ SCH (03:24)
[2017-09-01] MEDS: RESP: ALBUTEROL 2.5 MG/IPRATROPIUM 0.5 MG NEB (SCH) INH ×4 (03:33→20:42)
[2017-09-01] MEDS: CHLORHEXIDINE GLUCONATE 2 % 1 PACK (2 CLOTHS) TOP SCH (04:00)
[2017-09-01 05:49] LABS: AUTOMATED NEUTROPHIL # 6.5 TH/MM3 (1.8-7.7); BASOPHIL % 0.4 % (0.0-2.0); EOSINOPHIL # 0.1 TH/MM3 (0-0.4); EOSINOPHIL % 1.3 % (0.0-4.0); HEMATOCRIT 46.2 % (39.0-51.0); HEMOGLOBIN 15.1 GM/DL (13.0-17.0); LYMPH % 14.7 % (9.0-44.0); LYMPHOCYTE # 1.3 TH/MM3 (1.0-4.8); MEAN CELL VOLUME 81.3 FL (80.0-100.0); MEAN CORPUSCULAR HEMOGLOBIN 26.5 PG (27.0-34.0); MEAN CORPUSCULAR HGB CONC 32.6 % (32.0-36.0); MEAN PLATELET VOLUME 9.9 FL (7.0-11.0); MONO % 7.4 % (0.0-8.0); MONOCYTE # 0.6 TH/MM3 (0-0.9); NEUT % 76.2 % (16.0-70.0); PLATELET COUNT 242 TH/MM3 (150-450); RED BLOOD COUNT 5.68 MIL/MM3 (4.50-5.90); RED CELL DISTRIBUTION WIDTH 13.1 % (11.6-17.2); WHITE BLOOD COUNT 8.5 TH/MM3 (4.0-11.0)
[2017-09-01] MEDS: AZTREONAM INJ 2,000 MG in SODIUM CHLORIDE 0.9% INJ 100 ML IV SCH (05:58)
[2017-09-01] MEDS: INSULIN ASPART SUPPLEMENTAL SCALE SQ SCH ×3 (06:00→17:23)
[2017-09-01 06:13] LABS: BICARBONATE 27.9 MEQ/L (21.0-32.0); CALCIUM 9.6 MG/DL (8.5-10.1); CREATININE 1.32 MG/DL (0.60-1.30); MAGNESIUM 2.1 MG/DL (1.5-2.5)
[2017-09-01 06:14] LABS: PHOSPHORUS 6.4 MG/DL (2.5-4.9)
[2017-09-01 06:41] LABS: DIGOXIN 0.6 NG/ML (0.8-2.0)
--- NOTE | 2017-09-01 08:13 | HHI.PR ---
Subjective Remarks in no acute distress. on oxygen via N/C @ 3 lit/min. no fever. has mild cough. denies chest pain. d/w the RN and no acute issues over night. Objective Vitals Vital Signs Date Time Temp Pulse Resp B/P (MAP) Pulse Ox O2 Delivery O2 Flow Rate FiO2 09/01/17 06:00 83 09/01/17 04:00 85 09/01/17 03:00 98.1 88 22 152/106 (121) 09/01/17 02:00 79 09/01/17 00:00 77 08/31/17 23:00 98.2 80 20 128/82 (97) 97 08/31/17 22:00 128 08/31/17 20:54 16 08/31/17 20:50 100 Nasal Cannula 3.00 08/31/17 20:00 134 08/31/17 19:00 98.5 130 32 138/85 (102) 96 08/31/17 18:00 90 08/31/17 16:00 83 08/31/17 15:00 98.7 76 21 131/93 (106) 08/31/17 14:00 80 08/31/17 12:00 84 08/31/17 11:00 98.4 83 29 122/86 (98) 08/31/17 10:00 86 08/31/17 08:28 98 Nasal Cannula 4.00 I/O 08/31/17 08/31/17 08/31/17 09/01/17 09/01/17 09/01/17 07:00 15:00 23:00 07:00 15:00 23:00 Intake Total 640 ml 600 ml 150 ml 100 ml Output Total 1075 ml 1650 ml 250 ml 1400 ml Balance -435 ml -1050 ml -100 ml -1300 ml Intake Oral 240 ml 600 ml 50 ml IV Total 400 ml 100 ml 100 ml Output Urine Total 1075 ml 1650 ml 250 ml 1400 ml # Bowel Movements 0 0 Result Diagram: 09/01/17 0535 09/01/17 0533 Imaging Last Impressions Chest X-Ray 08/31/17 0000 Signed Impressions: CONCLUSION: Mild improvement in the right lower lung infiltrate compared to the prior study . Otherwise, stable exam. CT Angiography 08/30/17 0000 Signed Impressions: CONCLUSION: 1. No evidence of pulmonary embolism. 2. Diffuse infiltrates bilaterally consistent with moderate pulmonary edema an d/or pneumonia. Clinical correlation is recommended. 3. Small bilateral pleural effusions (right slightly larger than left) are not ed. 4. Cardiomegaly. Objective Remarks GENERAL: This is a well-nourished, well-developed patient, in no apparent distress. CARDIOVASCULAR: Regular rate and regular rhythm without murmurs, gallops, or rubs. RESPIRATORY: Clear to auscultation. Breath sounds equal bilaterally. No wheezes , rales, or rhonchi. GASTROINTESTINAL: Abdomen soft, non-tender, nondistended. Normal, active bowel sounds MUSCULOSKELETAL: Extremities without clubbing, cyanosis, or edema. NEURO: Alert & Oriented x4 to person, place, time, situation. Moves all ext x4 Medications and IVs Inpatient Medications Acetaminophen (Tylenol) 650 mg Q6H PRN PO PAIN 1-5 AND/OR FEVER >101F; Start at 20:00 Albuterol/ Ipratropium (Duoneb Neb) 1 ampule Q2HR NEB PRN INH WHEEZING; Start 08/30/17 at 20:00 Amlodipine Besylate (Norvasc) 5 mg DAILY PO Last administered on 08/31/17at 09:37 ; Start 08/31/17 at 09:00 Aspirin (Aspirin Chew) 81 mg DAILY PO Last administered on 08/31/17at 09:00; Start 08/31/17 at 09:00 Aspirin (Ecotrin Ec) 81 mg DAILY PO Last administered on 08/31/17at 12:22; Start 08/31/17 at 09:00 Aztreonam 2000 mg/ Sodium Chloride 100 ml @ 200 mls/hr Q8H IV Last administered on 09/01/17at 05:58; Start 08/30/17 at 23:00 Bisacodyl (Dulcolax Supp) 10 mg DAILY PRN RECTAL SEVERE CONSITIPATION; Start at 20:00 Carvedilol (Coreg) 6.25 mg Q12HR PO Last administered on 08/31/17at 09:37; Start 08/30/17 at 21:00; Stop 08/31/17 at 10:52; Status DC Chlorhexidine Gluconate (Chlorhexidine 2% Cloth) 3 pack UNSCH PRN TOP HYGIENIC CARE; Start 08/30/17 at 20:00 Dextrose (D50w (Vial) Inj) 50 ml UNSCH PRN IV PUSH HYPOGLYCEMIA-SEE COMMENTS; Start 08/30/17 at 23:00 Digoxin (Lanoxin Inj) 0.5 mg ONCE ONCE IV PUSH Last administered on 08/30/17at 18:51; Start 08/30/17 at 18:15; Stop 08/30/17 at 18:20; Status DC Digoxin (Lanoxin) 0.25 mg DAILY PO Last administered on 08/31/17at 12:24; Start 08/31/17 at 09:00 Ergocalciferol (Drisdol) 50,000 units Q7D PO Last administered on 08/30/17 20: 56; Start 08/30/17 at 20:00 Famotidine (Pepcid Inj) 20 mg Q12HR IV PUSH Last administered on 08/31/17at 09:37 ; Start 08/30/17 at 21:00; Stop 08/31/17 at 11:57; Status DC Famotidine (Pepcid) 20 mg BID PO Last administered on 08/31/17at 20:46; Start 08/31/17 at 21:00 Furosemide (Lasix Inj) 40 mg BID@,18 IV PUSH Last administered on 08/31/17 18 :33; Start 08/31/17 at 09:00 Glucagon (Glucagon Inj) 1 mg UNSCH PRN OTHER HYPOGLYCEMIA-SEE COMMENTS; Start 08/30/17 at 23:00 Heparin Sodium (Porcine) (Heparin Inj) 5,000 units Q8H SQ Last administered on 09/01/17at 03:24; Start 08/30/17 at 20:00 Insulin Aspart (NovoLOG SUPPLEMENTAL SCALE) 1 Q6HR SQ Last administered on at 23:34; Start 08/31/17 at 12:00 Labetalol HCl (Trandate Inj) 10 mg Q4H PRN IV PUSH SBP>160, DBP>90 Last administered on 09/01/17at 03:24; Start 09/01/17 at 03:15 Lactulose (Lactulose Liq) 30 ml DAILY PRN PO SEVERE CONSITIPATION; Start at 20:00 Lorazepam (Ativan Inj) 0.5 mg ONCE ONCE IV PUSH ; Start 08/30/17 at 17:00; Stop 08/30/17 at 17:01; Status DC Magnesium Hydroxide (Milk Of Magnesia Liq) 30 ml Q12H PRN PO Mild constipation ; Start 08/30/17 at 20:00 Magnesium Oxide (Mag-Ox) 800 mg UNSCH PRN PO For Magnesium 1.2 - 1.6 mg/dL; Start 08/31/17 at 11:00 Magnesium Sulfate 2 gm/Sodium Chloride 100 ml @ 50 mls/hr UNSCH PRN IV For Magnesium 1.2 - 1.6 mg/dL; Start 08/31/17 at 11:00 Magnesium Sulfate 4 gm/Sodium Chloride 100 ml @ 50 mls/hr UNSCH PRN IV For Magnesium 0.9 - 1.1 mg/dL; Start 08/31/17 at 11:00 Miscellaneous Information ([facility] [place] Nursing Information) 1 Q361D XX Last administered on 08/30/17at 22:00; Start 08/30/17 at 20:00 Morphine Sulfate (Morphine Inj) 2 mg Q2H PRN IV PUSH PAIN SCALE 6 TO 10 Last administered on 08/31/17at 20:46; Start 08/30/17 at 20:00 Ondansetron HCl (Zofran Odt) 4 mg Q6H PRN PO NAUSEA/VOMITING; Start 08/30/17 at 20:30 Piperacillin Sod/ Tazobactam Sod 100 ml @ 200 mls/hr Q6H IV Last administered on 08/31/17at 04:39; Start 08/30/17 at 23:00; Stop 08/31/17 at 10:52; Status DC Pneumococcal Polyvalent Vaccine (Pneumovax-23 Inj) 25 mcg ONCE ONCE IM ; Start 09/01/17 at 10:00; Stop 09/01/17 at 10:01 Potassium Phosphate (K-Phos) 2,000 mg UNSCH PRN PO/TUBE SEE LABEL COMMENTS; Start 08/31/17 at 11:00 Potassium Phosphate 30 mmol/ Sodium Chloride 260 ml @ 42 mls/hr UNSCH PRN IV SEE LABEL COMMENTS; Start 08/31/17 at 11:00 Potassium Bicarb/ Potassium Chloride (K-Lyte Cl Eff) 50 meq UNSCH PRN PO For Potassium 3.3 - 3.5 mEq/L; Start 08/31/17 at 11:00 Potassium Chloride 100 ml @ 50 mls/hr Q2H PRN IV For Potassium 3.3 - 3.5 mEq/L ; Start 08/31/17 at 11:00 Senna/Docusate Sodium (Rula-Colace) 1 tab BID PO Last administered on 08/31/17at 20:46; Start 08/30/17 at 21:00 Sennosides (Senokot) 17.2 mg Q12H PRN PO Moderate constipation; Start 08/30/17 at 20:00 Sodium Chloride (NS Flush) 2 ml BID IV FLUSH Last administered on 08/31/17at 20: 46; Start 08/30/17 at 21:00 Sodium Phosphate 30 mmol/Sodium Chloride 250 ml @ 42 mls/hr UNSCH PRN IV For Phosphorus < 2.5 mg/dL; Start 08/31/17 at 11:00 Spironolactone (Aldactone) 25 mg BID@09,18 PO Last administered on 08/31/17at 18: 00; Start 08/31/17 at 09:00 Temazepam (Restoril) 15 mg HS PRN PO INSOMNIA; Start 08/30/17 at 20:00 Vancomycin HCl 1000 mg/Sodium Chloride 250 ml @ 250 mls/hr ONCE ONCE IV Last administered on 08/30/17at 15:30; Start 08/30/17 at 15:15; Stop 08/30/17 at 16:14; Status DC A/P Assessment and Plan A/P acute Respiratory failure due to Pulmonary edema / acute on chronic systolic CHF moderate to severe MR continue aspirin,lasix, digoxin and aldactone; will consider adding EDUIN if renal function continues to improve. cardiology consult appreciated and plan for possible cardiac cath. keep on oxygen as needed to keep O2 sat > 90% continue neb treatment acute kidney injury; improved- continue to monitor. Diabetes mellitus; accu-check with SSI Hypertension; continue amlodipine transfer to [facility]. d/w the RN. Discharge Planning w/u in process- not ready for discharge yet. Michael Yeung MD Sep 01, 2017 08:13
[2017-09-01] MEDS: SPIRONOLACTONE 25 MG TAB PO SCH ×2 (09:48→17:23)
[2017-09-01] MEDS: DOCUSATE SODIUM 50 MG/SENNA 8.6 MG TAB PO SCH ×2 (09:48→19:55)
[2017-09-01] MEDS: FUROSEMIDE 40 MG/4 ML VIAL IV PUSH SCH (09:49)
[2017-09-01] MEDS: DIGOXIN 0.25 MG TAB PO SCH (09:51)
[2017-09-01] MEDS: amLODIPine BESYLATE 5 MG TAB PO SCH (09:51)
[2017-09-01] MEDS: FAMOTIDINE 20 MG TAB PO SCH ×2 (09:51→19:54)
[2017-09-01] MEDS: ASPIRIN 81 MG CHEW TAB PO SCH (09:52)
[2017-09-01] MEDS: ASPIRIN EC 81 MG TABEC PO SCH (09:52)
[2017-09-01] MEDS: SODIUM CHLORIDE 0.9% FLUSH 10 ML FLUSH IV FLUSH SCH ×3 (09:53→19:55)
[2017-09-01] MEDS ORDERED: PNEUMOCOCCAL POLYVALENT INJ 25 MCG/0.5 ML SYR IM ONE (10:00)
[2017-09-01] MEDS ORDERED: HEPARIN-NS/PF INJ 1,000 ML ONE (14:21)
[2017-09-01] MEDS ORDERED: MIDAZOLAM HCL 2 MG/2 ML VIAL ONE (14:21)
[2017-09-01] MEDS ORDERED: HEPARIN SODIUM - IV 10,000 UNITS/10 ML VIAL ONE (14:21)
[2017-09-01] MEDS ORDERED: METOPROLOL TARTRATE 5 MG/5 ML VIAL ONE (14:55)
[2017-09-01] MEDS ORDERED: LISINOPRIL 5 MG TAB PO ONE (15:15)
[2017-09-01] MEDS ORDERED: SODIUM CHLORIDE 0.9% FLUSH 10 ML FLUSH IV FLUSH PRN (15:15)
[2017-09-01] MEDS ORDERED: BACITRACIN OINT 0.9 GM PKT TOP ONE (15:15)
[2017-09-01] MEDS ORDERED: MISC INFORMATION XX ONE (15:15)
--- NOTE | 2017-09-01 15:26 | CATHPROC ---
[facility] HIS Report Study Information Study Number Admission Scheduled Start Study Start [id number] Aug 30 2017 7:10PM 09/01/2017 Sep 01 2017 2:07PM [facility] Cardiac Catheterization Admit Source Facility Department Emergency department [facility] - Corporate Relations Manager Physician and Clinical Staff Initial Gonsalo Bradford Apparel Fashion Designer Jorgito Rowe,RN Apparel Fashion Designer Jorgito Bal,RN Recorder Jeanette Curtis,CARYN TECH2 Scrub Sharon Jones ,RT(R) Procedures Performed Procedure Location (Site) Vessel Name Coronary Angiograms LCA Left Coronary Coronary Angiograms RCA Right Coronary LV Gram-hand inj. LV LV Ventricle Equipment Time Patent Counsel Description Size Mfg Part Number Used/Scraped CATHETER, FR5 SWAN CLYDE 14:10 LEWIS RICK FR 5 [id number] *[id number] Used MONITOR CATHETER, FR5 SWAN CLYDE 14:27 LEWIS RICK FR 5 [id number] *[id number] Used MONITOR TRANSDUCER, TRUWAVE [id number] 14:10 NGRAIN RICK * Used W/STOCKCOCK *[id number] [id number] *[id number] [id number] *[id number] [id number] *[id number] 14:10 Fiiiling BLANKET,WARM AIR CCL * Used *[id number] 14:10 Fiiiling PACK, CCL CUSTOM * Used *[id number] 14:10 aScentias PACER PEN, SKIN DUAL W/ RULER * Used *[id number] 14:10 KAYAK MEDICAL SHEATH, FR5.5 PRELUDE 11CM FR 5.5 Used [id number] 14:10 KAYAK MEDICAL WIRE, 3MMJ .035 180CM 180CM Used *[id number] 14:10 NAMIC MANIFOLD, 4 PORT * Used *[id number] 14:10 NYCOMED OMNIPAQUE, 350 MG, 150ML 150ML [id number] Used [id number] 14:10 Galeno PlusUMO MEDICAL SHEATH, FR4 TERUMO (10CM) FR 4 Used *[id number] History: Current Medications Medication Dosage/Unit Route Frequency Last Date/Time Taken ASA CARVEDILOL NORVASC LASIX History: Risk Factors Family History of Hypertension Dyslipidemia Previous AK Previous Heart Failure Premature CAD Yes No No Yes Yes Prior Valve Prior PCI Prior CABG Surgery No No No Cerebrovascular Peripheral Artery Chronic Lung On Dialysis Diabetes Diabetes Therapy Disease Disease Disease No Yes No No Yes Insulin History: Symptoms/Diagnosis Selection Items Chest pain SOB History: CV Disease Selection Items Cardiomyopathy AK History: Stress Tests Stress or Imaging Studies Performed No History: Other Disease Selection Items Hepatitis History: Other Current Smoker No Labs Hgb (g/dl) Hct (%) Platelets (thousands) 11.60-17.00 35.00-51.00 150.00-450.00 15.1 46.2 242 Glucose (mg/dl) BUN (mg/dl) Creatinine (mg/dl) BUN:Creatinine (1:x) 74.00-106.00 7.00-18.00 0.50-1.30 10.00-20.00 206 30 1.3 23.1 Na (meq/l) K (meq/l) 136.00-145.00 3.50-5.10 136 3.8 INR (PTT:PT) 0.90-1.10 1.1 Troponin I (ng/ml) CPK (u/l) CPK-MB (ng/ML) 0.02-0.05 26.00-308.00 0.50-3.60 0.08 386 9.8 Medication Medication Total Dose (Bolus/Oral) Medication Total Dosage/Unit 1% XYLOCAINE 20 mL FENTANYL 25 mcg OXYGEN 4 l/min VERSED 1 mg Medications (Bolus/Oral) Medication Time Given Dosage/Unit Administered By Reason OXYGEN 09/01/2017 2:20:44 PM 4 l/min Patient arrived on 4 l/min OXYGEN via Nasal. VERSED 09/01/2017 2:40:25 PM 1 mg MallyJorgito 1 mg VERSED given in lab by Jorgito Bal RN in Left Forearm via Peripheral IV. Ordered by Gonsalo Lopez. FENTANYL 09/01/2017 2:41:11 PM 25 mcg Mally, Jorgito 25 mcg FENTANYL given in lab by Jorgito Bal RN in Left Forearm via Peripheral IV. Ordered by Gonsalo Gonzalez. 1% XYLOCAINE 09/01/2017 2:42:29 PM 20 mL Gonsalo Lopez 20 mL 1% XYLOCAINE given in lab by Gonsalo Lopez in Right Groin via Subcutaneous. Ordered by Gonsalo Phelan. Medication (Drip) Medication Time Given Dosage/Unit Concentration/Unit Diluent (ml) Solution IV Solutions 09/01/2017 2:28:13 PM 0 mL (IV) NaCl .9 Patient arrived on IV Solutions in Left Antecubital via Peripheral IV. Pump/Drip Flow = 20 ml/hr usin g NaCl .9. Initial Case Assessment Cardiovascular HR Rhythm NIBP Chest Pain 77 sr 127/95 0 Circulatory - Right Pulses Dorsalis Pedis Femoral 2 3 Scale (0,1,2,3,4,d) Circulatory - Left Pulses Dorsalis Pedis Femoral 2 3 Scale (0,1,2,3,4,d) Neurological State Oriented to time-place- Alert Moves all extremities person Respiration - General Respiration Rate SpO2 (%) O2 (lpm) (B/min) 25 97 4 Final Case Assessment Cardiovascular HR Rhythm NIBP Chest Pain 76 sr 127/94 0 Circulatory - Right Pulses Dorsalis Pedis Femoral 2 3 Scale (0,1,2,3,4,d) Circulatory - Left Pulses Dorsalis Pedis Femoral 2 3 Scale (0,1,2,3,4,d) Neurological State Oriented to time-place- Alert Moves all extremities person Respiration - General Respiration Rate SpO2 (%) O2 (lpm) (B/min) 20 100 4 Chronological Log Time Study Chronological Log 14:19:09 Patient arrived via Bed. 14:19:10 Patient Name, D.O.B, / Armband Verified By R.N. 14:19:12 Consent signed by the physician and the patient and verified by the Corporate Relations Manager staff. 14:19:14 Pre-op and post- op instructions given; patient acknowledges understanding of instructions. 14:20:44 Patient arrived on 4 l/min OXYGEN via Nasal. Vitals capture started with the following parameters, Patient=Adult, Interval=5 min, Initial Pr waicry=152 mmHg, 14:27:42 Deflation Rate=5 mmHg, Cuff placed on Left Arm 14:27:58 Verbal Stimulation=2 Physical Stimulation=2 Airway=2 Respiration=2 TOTAL=8. (0=absent, 1=li mited, 2=present) 14:28:01 Presedation assessment performed by Corporate Relations Manager RN. 14:28:03 Patient has been NPO for More than 6Hrs. 14:28:05 Skin Breakdown-none 14:28:08 Fritz Prominences Protected 14:28:13 A # 20 IV was noted in the Forearm (left). Grade = 0 14:28:13 Patient arrived on IV Solutions in Left Antecubital via Peripheral IV. Pump/Drip Flow = 20 ml/hr using NaCl .9. 14:28:17 HR=71 bpm, NZVO=794/95 mmhg, SpO2=97.0 %, Resp=21 B/min 14:28:22 History and physical on the chart or being dictated. Assessment: Initial Case, HR=77 BPM, Rhythm=sr, YESS=237/95 mmhg, Chest Pain=0 Right Pulses: Shashank Ped=2, Femoral=3 14:28:24 Left Pulses: Shashank Ped=2, Femoral=3 Neurological: State=Alert, Ox3, NAGEL Respiration: Resp=25 B/min, SpO2=97 %, O2=4 lpm 14:29:40 Bilateral groins prepped with 2% chlorhexidine, and draped after a 3 minute waiting time. 14:29:45 MD arrived. 14:33:40 HR=81 bpm, JOPX=732/94 mmhg, SpO2=97.0 %, Resp=21 B/min 14:37:47 Pressure channel 1 zeroed. 14:38:13 HR=73 bpm, NYJM=240/94 mmhg, SpO2=97.0 %, Resp=18 B/min 14:40:25 1 mg VERSED given in lab by Jorgito Bal RN in Left Forearm via Peripheral IV. Ordered by Gonsalo Lopez. 14:41:11 25 mcg FENTANYL given in lab by Jorgito Bal RN in Left Forearm via Peripheral IV. Ordered by Gonsalo Lopez. 14:42:28 Case Start 20 mL 1% XYLOCAINE given in lab by Gonsalo Lopez in Right Groin via Subcutaneous. Ordered by John 14:42:29 Gonsalo. 14:43:45 Access site was Right Femoral Artery. 14:43:47 HR=75 bpm, DTLK=210/96 mmhg, SpO2=97.0 %, Resp=15 B/min 14:43:58 A SHEATH, FR4 TERUMO (10CM) FR 4 was advanced into the Fem Art (right) using the Percutaneo us technique. 14:44:29 Reference ECG taken 14:45:40 Access site was Right Femoral Vein. 14:45:50 A SHEATH, FR5.5 PRELUDE 11CM FR 5.5 was advanced into the Fem Vein (right) using the Percut aneous technique. 14:46:00 A CATHETER, FR5 SWAN CLYDE MONITOR FR 5 was inserted via Fem Vein (right) 14:48:15 HR=76 bpm, KPKE=521/92 mmhg, SpO2=97.0 %, Resp=17 B/min Recorded Pressure: PCW, HR=74, Condition=Condition 1 14:48:47 (Pulmonary Capillary Wedge) PCW Recorded Pressure: MPA, HR=73, Condition=Condition 1 14:49:06 (Main Pulmonary Artery) MPA 14:49:38 Saturation: Site=PA (Pulmonary Artery) , O2=76.4 %, Hgb=15.1 gm/dl, Condition=Condition 1. Used in calculation. Recorded Pressure: RV, HR=74, Condition=Condition 1 14:50:54 (Right Ventricle) RV 33/3/5 Recorded Pressure: RA, HR=70, Condition=Condition 1 14:51:11 (Right Atrium) RA 08/31/3 14:51:58 Saturation: Site=RA (Right Atrium) , O2=77.7 %, Hgb=15.1 gm/dl, Condition=Condition 1. Used in calculation. 14:52:17 Saturation: Site=Ao (Aorta) , O2=98.6 %, Hgb=15.1 gm/dl, Condition=Condition 1. Used in abhijit culation. 14:53:06 [place] Catheter Removed A JR 4.0 INFINITI CATHETER FR 4 was advanced over a wire. OMNIPAQUE, 350 MG, 150ML 150ML was us ed for 14:53:07 injections. 14:53:18 HR=66 bpm, DNVS=436/77 mmhg, SpO2=97.0 %, Resp=29 B/min Recorded Pressure: LV, HR=72, Condition=Condition 1 14:53:18 (Left Ventricle) LV 122/4/6 14:53:26 The LV was manually injected with 10 cc's and visualized. OMNIPAQUE, 350 MG, 150ML 150ML us ed. Recorded Pressure: LV, Ao, BJ=585, Condition=Condition 1 14:53:38 (Left Ventricle) LV 113/5/9, (Aorta) Ao 111/68/90 14:54:37 The RCA was injected and visualized at various angles. OMNIPAQUE, 350 MG, 150ML 150ML used . A JL 4.0 INFINITI CATHETER FR 4 was advanced over a wire. OMNIPAQUE, 350 MG, 150ML 150ML was us ed for 14:54:47 injections. 14:56:04 The LCA was injected and visualized at various angles. OMNIPAQUE, 350 MG, 150ML 150ML used . 14:57:44 Catheter was removed 14:57:58 Case End 14:58:17 HR=74 bpm, WPNR=681/90 mmhg, SpO2=97.0 %, Resp=18 B/min 15:01:47 4FR Sheath removed; pressure applied to access site. 15:03:16 HR=76 bpm, LQFM=069/88 mmhg, JtR1=020 %, Resp=18 B/min 15:08:15 HR=77 bpm, IMNQ=265/93 mmhg, SpO2=97.0 %, Resp=22 B/min 15:11:04 5FR Venous Sheath removed; pressure applied to access site. 15:13:18 HR=79 bpm, KREW=616/98 mmhg, KiL5=450 %, Resp=18 B/min 15:18:19 HR=78 bpm, OULV=642/94 mmhg, SpO2=99 %, Resp=27 B/min 15:20:01 Hemostasis obtained. Sterile dressing applied to site 15:20:23 No case complications noted. 15:20:24 Cine recording checked. Assessment: Final Case, HR=76 BPM, Rhythm=sr, HGQO=795/94 mmhg, Chest Pain=0 Right Pulses: Shashank Ped=2, Femoral=3 15:20:26 Left Pulses: Shashank Ped=2, Femoral=3 Neurological: State=Alert, Ox3, NAGEL Respiration: Resp=20 B/min, YsU5=569 %, O2=4 lpm 15:24:59 Patient moved to bed 15:25:15 [place] transported [place] [facility] [place] Study - Contrast Media Used In Study Contrast Total Opened (mL) Total Used (mL) Total Wasted (mL) Omnipaque 45 45 0 End Study - Maximum Contrast Load Max Contrast Load (mL) 244.9 End Study - Radiation Exposure Fluoro Time (minutes) 2.7 End Study - Sheaths Sheaths Pulled By Sheath Hold Time (min) Sharon Jones End Study - Patient Disposition Complications Transferred To Interventional Outcome No Critical Care Bed No attempt made
--- NOTE | 2017-09-01 15:44 | MA ---
cc: Gonsalo Lopez MD DATE: 09/01/2017 DATE OF PROCEDURE: 09/01/2017 PROCEDURE PERFORMED: Right heart catheterization, left heart catheterization, left ventriculography, coronary angiography. INDICATION: Cardiomyopathy, [place] Heart Association class IV congestive heart failure, moderate to severe mitral regurgitation, anginal equivalent, unstable angina, [place] Cardiovascular Society class IV angina. Multiple cardiac risk factors. PROCEDURAL STATEMENT: The patient was brought to the cardiac catheterization laboratory, prepped and draped in the usual sterile fashion. 10 mL of 1% Xylocaine was used to locally anesthetize the right common femoral artery. A 4-Lithuanian sheath was placed in the right common femoral artery, a 5.5-Lithuanian sheath placed in the right common femoral vein. Right heart catheterization pressures were performed with the following findings: FINDINGS: The pulmonary capillary wedge pressure was 15/15-13. PA pressure 31/15-22. RV pressure 33/3-5. RA pressure is 6/4-3. On 4 liters nasal cannula, the FA sat 98.6%, PA sat 76.4%, RA sat 77.7%. The 4-Lithuanian JR5 and JL4 catheters were used to perform left and right coronary arteriography and left ventriculography. FINDINGS: LV pressure is 120/4-5. EF 25%. Global hypokinesis. Right coronary artery has no significant disease angiographically. Left main coronary has no significant disease angiographically. Left anterior descending coronary artery is transapical. No significant disease angiographically. First diagonal artery is a large vessel, reference vessel diameter of 3.25 mm. No significant disease angiographically. Second diagonal artery is a small vessel, 1.5 mm reference vessel diameter. No significant disease angiographically. Left circumflex vessel has no significant disease angiographically. The first obtuse marginal vessel comes off the mid to distal AV groove. The left circumflex has no significant disease angiographically. CONCLUSION: 1. Angiographically no significant coronary artery disease. 2. Nonischemic cardiomyopathy up to 25%, global hypokinesis. 3. Normal right heart pressures, as detailed above. 4. Euvolemic by left ventricular pressures as well. RECOMMENDATIONS: Recommend medical management of cardiomyopathy. NOTE: I have extensively counseled the patient to discontinue all illicit drugs and abstain from any use of tobacco. We will get a case management consult for consideration of transfer for evaluation as inpatient or outpatient for heart transplant. I have explained to the patient that he will need to be abstinent from all drugs, tobacco, and alcohol for at least 6 months before he will be considered a candidate for heart transplant most likely. MD JANELLE Garnica/SB , 03:03 PM , 03:43 PM
[2017-09-02] VITALS (8 sets, daily range): BP systolic 105–131; BP diastolic 66–80; PULSE 72–84; RESP 18–30; TEMP 97.6–98.5; O2SAT 95–99
[2017-09-02] MEDS: CHLORHEXIDINE GLUCONATE 2 % 1 PACK (2 CLOTHS) TOP SCH (04:00)
[2017-09-02] MEDS: RESP: ALBUTEROL 2.5 MG/IPRATROPIUM 0.5 MG NEB (SCH) INH ×4 (04:11→20:36)
[2017-09-02 05:27] LABS: AUTOMATED NEUTROPHIL # 4.9 TH/MM3 (1.8-7.7); BASOPHIL % 0.2 % (0.0-2.0); EOSINOPHIL # 0.1 TH/MM3 (0-0.4); HEMATOCRIT 50.1 % (39.0-51.0); HEMOGLOBIN 16.2 GM/DL (13.0-17.0); LYMPH % 14.7 % (9.0-44.0); MEAN CELL VOLUME 80.8 FL (80.0-100.0); MEAN CORPUSCULAR HEMOGLOBIN 26.1 PG (27.0-34.0); MEAN CORPUSCULAR HGB CONC 32.3 % (32.0-36.0); MEAN PLATELET VOLUME 9.5 FL (7.0-11.0); MONO % 11.1 % (0.0-8.0); MONOCYTE # 0.8 TH/MM3 (0-0.9); PLATELET COUNT 251 TH/MM3 (150-450); RED CELL DISTRIBUTION WIDTH 13.4 % (11.6-17.2); WHITE BLOOD COUNT 6.8 TH/MM3 (4.0-11.0)
[2017-09-02] MEDS: INSULIN ASPART SUPPLEMENTAL SCALE SQ SCH ×4 (06:00→17:45)
[2017-09-02 06:08] LABS: BICARBONATE 30.4 MEQ/L (21.0-32.0); CALCIUM 9.5 MG/DL (8.5-10.1); CREATININE 1.19 MG/DL (0.60-1.30); DIGOXIN 0.6 NG/ML (0.8-2.0); MAGNESIUM 2.3 MG/DL (1.5-2.5)
[2017-09-02] MEDS: FUROSEMIDE 40 MG/4 ML VIAL IV PUSH SCH (08:14)
[2017-09-02] MEDS: SODIUM CHLORIDE 0.9% FLUSH 10 ML FLUSH IV FLUSH SCH ×4 (08:14→19:38)
[2017-09-02] MEDS: SPIRONOLACTONE 25 MG TAB PO SCH (08:15)
[2017-09-02] MEDS: ASPIRIN 81 MG CHEW TAB PO SCH (08:15)
[2017-09-02] MEDS: amLODIPine BESYLATE 5 MG TAB PO SCH (08:15)
[2017-09-02] MEDS: DOCUSATE SODIUM 50 MG/SENNA 8.6 MG TAB PO SCH ×2 (08:15→19:37)
[2017-09-02] MEDS: DIGOXIN 0.25 MG TAB PO SCH (08:15)
[2017-09-02] MEDS: FAMOTIDINE 20 MG TAB PO SCH ×2 (08:15→19:37)
--- NOTE | 2017-09-02 08:37 | HHI.PR ---
Subjective Remarks in no acute distress. off oxygen now. denies chest pain or sob but feeling weak. no fever. d/w the RN. Objective Vitals Vital Signs Date Time Temp Pulse Resp B/P (MAP) Pulse Ox O2 Delivery O2 Flow Rate FiO2 09/02/17 04:00 74 09/02/17 04:00 98.5 74 18 122/79 (93) 09/02/17 00:00 72 09/02/17 00:00 98.3 72 23 119/77 (91) 09/01/17 20:42 97 Nasal Cannula 2.00 09/01/17 20:00 80 09/01/17 20:00 98.8 80 27 133/62 (85) 96 09/01/17 19:00 98.7 84 25 134/67 (89) 09/01/17 18:00 98.1 88 25 130/84 (99) 09/01/17 17:30 98.1 86 22 134/91 (105) 09/01/17 17:00 97.9 75 20 134/91 (105) 09/01/17 16:30 97.9 76 19 134/95 (108) 97 09/01/17 16:15 97.9 77 25 134/95 (108) 96 09/01/17 16:00 98.1 79 20 134/95 (108) 09/01/17 16:00 97.9 79 20 134/95 (108) 09/01/17 16:00 79 09/01/17 15:45 97.9 76 21 134/96 (109) 09/01/17 12:00 98.5 74 19 126/87 (100) 09/01/17 12:00 74 09/01/17 10:00 72 09/01/17 09:40 96 Nasal Cannula 3.00 I/O 09/01/17 09/01/17 09/01/17 09/02/17 09/02/17 09/02/17 07:00 15:00 23:00 07:00 15:00 23:00 Intake Total 100 ml 650 ml Output Total 1400 ml 1200 ml 700 ml Balance -1300 ml -550 ml -700 ml Intake Oral 550 ml IV Total 100 ml 100 ml Output Urine Total 1400 ml 1200 ml 700 ml # Bowel Movements 0 1 0 Result Diagram: 09/02/17 0440 09/02/17 0440 Imaging Last Impressions Chest X-Ray 08/31/17 0000 Signed Impressions: CONCLUSION: Mild improvement in the right lower lung infiltrate compared to the prior study . Otherwise, stable exam. CT Angiography 08/30/17 0000 Signed Impressions: CONCLUSION: 1. No evidence of pulmonary embolism. 2. Diffuse infiltrates bilaterally consistent with moderate pulmonary edema an d/or pneumonia. Clinical correlation is recommended. 3. Small bilateral pleural effusions (right slightly larger than left) are not ed. 4. Cardiomegaly. Objective Remarks GENERAL: This is a well-nourished, well-developed patient, in no apparent distress. CARDIOVASCULAR: Regular rate and regular rhythm without murmurs, gallops, or rubs. RESPIRATORY: Clear to auscultation. Breath sounds equal bilaterally. No wheezes , rales, or rhonchi. GASTROINTESTINAL: Abdomen soft, non-tender, nondistended. Normal, active bowel sounds MUSCULOSKELETAL: Extremities without clubbing, cyanosis, or edema. NEURO: Alert & Oriented x4 to person, place, time, situation. Moves all ext x4 Medications and IVs Inpatient Medications Acetaminophen (Tylenol) 650 mg Q6H PRN PO PAIN 1-5 AND/OR FEVER >101F; Start at 20:00 Albuterol/ Ipratropium (Duoneb Neb) 1 ampule Q2HR NEB PRN INH WHEEZING; Start 08/30/17 at 20:00 Amlodipine Besylate (Norvasc) 5 mg DAILY PO Last administered on 09/02/17at 08:15 ; Start 08/31/17 at 09:00 Aspirin (Aspirin Chew) 81 mg DAILY PO Last administered on 09/02/17at 08:15; Start 08/31/17 at 09:00 Aspirin (Ecotrin Ec) 81 mg DAILY PO Last administered on 09/01/17at 09:52; Start 08/31/17 at 09:00; Stop 09/01/17 at 16:07; Status DC Aztreonam 2000 mg/ Sodium Chloride 100 ml @ 200 mls/hr Q8H IV Last administered on 09/01/17at 05:58; Start 08/30/17 at 23:00; Stop 09/01/17 at 08:15; Status DC Bacitracin (Bacitracin Oint Packet) 0.9 gm ONCE ONCE TOP ; Start 09/01/17 at 15: 15; Stop 09/01/17 at 16:06; Status DC Bisacodyl (Dulcolax Supp) 10 mg DAILY PRN RECTAL SEVERE CONSITIPATION; Start at 20:00 Carvedilol (Coreg) 6.25 mg Q12HR PO Last administered on 08/31/17at 09:37; Start 08/30/17 at 21:00; Stop 08/31/17 at 10:52; Status DC Chlorhexidine Gluconate (Chlorhexidine 2% Cloth) 3 pack UNSCH PRN TOP HYGIENIC CARE; Start 08/30/17 at 20:00 Dextrose (D50w (Vial) Inj) 50 ml UNSCH PRN IV PUSH HYPOGLYCEMIA-SEE COMMENTS; Start 08/30/17 at 23:00 Digoxin (Lanoxin Inj) 0.5 mg ONCE ONCE IV PUSH Last administered on 08/30/17at 18:51; Start 08/30/17 at 18:15; Stop 08/30/17 at 18:20; Status DC Digoxin (Lanoxin) 0.25 mg DAILY PO Last administered on 09/02/17at 08:15; Start 08/31/17 at 09:00 Ergocalciferol (Drisdol) 50,000 units Q7D PO Last administered on 08/30/17at 20: 56; Start 08/30/17 at 20:00 Famotidine (Pepcid Inj) 20 mg Q12HR IV PUSH Last administered on 08/31/17at 09:37 ; Start 08/30/17 at 21:00; Stop 08/31/17 at 11:57; Status DC Famotidine (Pepcid) 20 mg BID PO Last administered on 09/02/17at 08:15; Start 08/31/17 at 21:00 Furosemide (Lasix Inj) 40 mg DAILY IV PUSH Last administered on 09/02/17at 08:14 ; Start 09/02/17 at 09:00 Glucagon (Glucagon Inj) 1 mg UNSCH PRN OTHER HYPOGLYCEMIA-SEE COMMENTS; Start 08/30/17 at 23:00 Heparin Sodium (Porcine) (Heparin Inj) 5,000 units Q8H SQ Last administered on 09/01/17at 03:24; Start 08/30/17 at 20:00; Stop 09/01/17 at 16:36; Status DC Insulin Aspart (NovoLOG SUPPLEMENTAL SCALE) 1 Q6HR SQ Last administered on at 06:00; Start 08/31/17 at 12:00 Labetalol HCl (Trandate Inj) 10 mg Q4H PRN IV PUSH SBP>160, DBP>90 Last administered on 09/01/17at 03:24; Start 09/01/17 at 03:15 Lactulose (Lactulose Liq) 30 ml DAILY PRN PO SEVERE CONSITIPATION; Start at 20:00 Lisinopril (Prinivil) 2.5 mg DAILY PO ; Start 09/02/17 at 09:00 Lorazepam (Ativan Inj) 0.5 mg ONCE ONCE IV PUSH ; Start 08/30/17 at 17:00; Stop 08/30/17 at 17:01; Status DC Magnesium Hydroxide (Milk Of Magnesia Liq) 30 ml Q12H PRN PO Mild constipation ; Start 08/30/17 at 20:00 Magnesium Oxide (Mag-Ox) 800 mg UNSCH PRN PO For Magnesium 1.2 - 1.6 mg/dL; Start 08/31/17 at 11:00; Stop 09/01/17 at 08:15; Status DC Magnesium Sulfate 2 gm/Sodium Chloride 100 ml @ 50 mls/hr UNSCH PRN IV For Magnesium 1.2 - 1.6 mg/dL; Start 08/31/17 at 11:00; Stop 09/01/17 at 08:15; Status DC Magnesium Sulfate 4 gm/Sodium Chloride 100 ml @ 50 mls/hr UNSCH PRN IV For Magnesium 0.9 - 1.1 mg/dL; Start 08/31/17 at 11:00; Stop 09/01/17 at 08:15; Status DC Miscellaneous Information 1 ONCE ONCE XX ; Start 09/01/17 at 15:15; Stop at 16:36; Status DC Miscellaneous Information ([facility] Nursing Information) 1 Q361D XX Last administered on 08/30/17at 22:00; Start 08/30/17 at 20:00 Morphine Sulfate (Morphine Inj) 2 mg Q2H PRN IV PUSH PAIN SCALE 6 TO 10 Last administered on 08/31/17at 20:46; Start 08/30/17 at 20:00 Ondansetron HCl (Zofran Odt) 4 mg Q6H PRN PO NAUSEA/VOMITING; Start 08/30/17 at 20:30 Piperacillin Sod/ Tazobactam Sod 100 ml @ 200 mls/hr Q6H IV Last administered on 08/31/17at 04:39; Start 08/30/17 at 23:00; Stop 08/31/17 at 10:52; Status DC Pneumococcal Polyvalent Vaccine (Pneumovax-23 Inj) 25 mcg ONCE ONCE IM Last administered on 09/01/17at 09:51; Start 09/01/17 at 10:00; Stop 09/01/17 at 10:01; Status DC Potassium Phosphate (K-Phos) 2,000 mg UNSCH PRN PO/TUBE SEE LABEL COMMENTS; Start 08/31/17 at 11:00; Stop 09/01/17 at 08:15; Status DC Potassium Phosphate 30 mmol/ Sodium Chloride 260 ml @ 42 mls/hr UNSCH PRN IV SEE LABEL COMMENTS; Start 08/31/17 at 11:00; Stop 09/01/17 at 08:15; Status DC Potassium Bicarb/ Potassium Chloride (K-Lyte Cl Eff) 50 meq UNSCH PRN PO For Potassium 3.3 - 3.5 mEq/L; Start 08/31/17 at 11:00; Stop 09/01/17 at 08:15; Status DC Potassium Chloride 100 ml @ 50 mls/hr Q2H PRN IV For Potassium 3.3 - 3.5 mEq/L ; Start 08/31/17 at 11:00; Stop 09/01/17 at 08:15; Status DC Senna/Docusate Sodium (Rula-Colace) 1 tab BID PO Last administered on 09/02/17at 08:15; Start 08/30/17 at 21:00 Sennosides (Senokot) 17.2 mg Q12H PRN PO Moderate constipation; Start 08/30/17 at 20:00 Sodium Chloride (NS Flush) 2 ml UNSCH PRN IV FLUSH FLUSH AFTER USING IV ACCESS ; Start 09/01/17 at 15:15 Sodium Phosphate 30 mmol/Sodium Chloride 250 ml @ 42 mls/hr UNSCH PRN IV For Phosphorus < 2.5 mg/dL; Start 08/31/17 at 11:00; Stop 6/5/18 at 08:15; Status DC Spironolactone (Aldactone) 25 mg BID@09,18 PO Last administered on 09/02/17at 08: 15; Start 08/31/17 at 09:00 Temazepam (Restoril) 15 mg HS PRN PO INSOMNIA; Start 08/30/17 at 20:00 Vancomycin HCl 1000 mg/Sodium Chloride 250 ml @ 250 mls/hr ONCE ONCE IV Last administered on 08/30/17at 15:30; Start 08/30/17 at 15:15; Stop 08/30/17 at 16:14; Status DC A/P Assessment and Plan A/P acute Respiratory failure due to Pulmonary edema / acute on chronic systolic CHF - improving. moderate to severe MR s/p cardiac cath with: Angiographically no significant coronary artery disease/ Nonischemic cardiomyopathy up to 25%, global hypokinesis. continue aspirin,lasix, digoxin , aldactone and lisinopril. walk test today. cardiology following. acute kidney injury; improved- continue to monitor. Diabetes mellitus; accu-check with SSI Hypertension; continue amlodipine, lisinopril polysubstance abuse; counselled on quitting illicit drug abuse. for transfer to [facility]. d/w the RN. Discharge Planning possible discharge within the next 24 hrs-if stable and cleared by cardiology- pending walk test. patient is homeless; case management consulted to assist with outpatient follow- ups. Michael Yeung MD Sep 02, 2017 08:36
[2017-09-02] MEDS ORDERED: IOHEXOL 350 MG/ML 50 ML BTL (for Cath Lab) OTHER ONE (08:50)
--- NOTE | 2017-09-02 14:29 | PD.CARD.PN ---
Subjective Subjective Remarks appears comfortable, feels better, alert in nad Objective Medications Current Medications Medications (Trade) Dose Ordered Sig/Joshua Route Start Time Stop Time Status Last Admin (Norvasc) 5 mg DAILY PO 08/31/17 09:00 09/02/17 08:15 (Aspirin Chew) 81 mg DAILY PO 08/31/17 09:00 09/02/17 08:15 (Drisdol) 50,000 units Q7D PO 08/30/17 20:00 08/30/17 20:56 (NS Flush) 2 ml BID IV FLUSH 08/30/17 21:00 09/02/17 08:14 (Tylenol) 650 mg Q6H PRN PO 08/30/17 20:00 (Morphine Inj) 2 mg Q2H PRN IV PUSH 08/30/17 20:00 08/31/17 20:46 (Zofran Odt) 4 mg Q6H PRN PO 08/30/17 20:30 (Restoril) 15 mg HS PRN PO 08/30/17 20:00 (Duoneb Neb) 1 ampule Q6HR NEB INH 08/30/17 22:00 09/02/17 08:44 (Duoneb Neb) 1 ampule Q2HR NEB PRN INH 08/30/17 20:00 ([facility] [place] 1 Q361D XX 08/30/17 20:00 08/30/17 22:00 (Chlorhexidine 2% Cloth) 3 pack Taper DAILY@04 TOP 08/31/17 04:00 08/27/18 03:59 09/02/17 04:00 (Chlorhexidine 2% Cloth) 3 pack UNSCH PRN TOP 08/30/17 20:00 (Rula-Colace) 1 tab BID PO 08/30/17 21:00 09/02/17 08:15 (Milk Of Magnesia Liq) 30 ml Q12H PRN PO 08/30/17 20:00 (Senokot) 17.2 mg Q12H PRN PO 08/30/17 20:00 (Dulcolax Supp) 10 mg DAILY PRN RECTAL 08/30/17 20:00 (Lactulose Liq) 30 ml DAILY PRN PO 08/30/17 20:00 (D50w (Vial) Inj) 50 ml UNSCH PRN IV PUSH 08/30/17 23:00 (Glucagon Inj) 1 mg UNSCH PRN OTHER 08/30/17 23:00 (Lanoxin) 0.25 mg DAILY PO 08/31/17 09:00 09/02/17 08:15 (NovoLOG SUPPLEMENTAL SCALE) 1 Q6HR SQ 08/31/17 12:00 09/02/17 12:50 (Pepcid) 20 mg BID PO 08/31/17 21:00 09/02/17 08:15 (Trandate Inj) 10 mg Q4H PRN IV PUSH 09/01/17 03:15 09/01/17 03:24 (NS Flush) 2 ml BID IV FLUSH 09/01/17 21:00 09/01/17 19:55 (NS Flush) 2 ml UNSCH PRN IV FLUSH 09/01/17 15:15 (Prinivil) 2.5 mg DAILY PO 09/02/17 09:00 (Lasix Inj) 40 mg DAILY IV PUSH 09/02/17 09:00 09/02/17 08:14 (Aldactone) 50 mg BID@,18 PO 09/02/17 18:00 Vital Signs / I&O Vital Signs Date Time Temp Pulse Resp B/P (MAP) Pulse Ox O2 Delivery O2 Flow Rate FiO2 09/02/17 12:00 76 09/02/17 12:00 97.6 76 24 105/71 (82) 98 09/02/17 08:45 96 Nasal Cannula 2.00 09/02/17 08:00 98.3 72 23 119/78 (92) 99 09/02/17 08:00 72 09/02/17 04:00 74 09/02/17 04:00 98.5 74 18 122/79 (93) 09/02/17 00:00 72 09/02/17 00:00 98.3 72 23 119/77 (91) 09/01/17 20:42 97 Nasal Cannula 2.00 09/01/17 20:00 80 09/01/17 20:00 98.8 80 27 133/62 (85) 96 09/01/17 19:00 98.7 84 25 134/67 (89) 09/01/17 18:00 98.1 88 25 130/84 (99) 09/01/17 17:30 98.1 86 22 134/91 (105) 09/01/17 17:00 97.9 75 20 134/91 (105) 09/01/17 16:30 97.9 76 19 134/95 (108) 97 09/01/17 16:15 97.9 77 25 134/95 (108) 96 09/01/17 16:00 98.1 79 20 134/95 (108) 09/01/17 16:00 97.9 79 20 134/95 (108) 09/01/17 16:00 79 09/01/17 15:45 97.9 76 21 134/96 (109) I/O 09/01/17 09/01/17 09/01/17 09/02/17 09/02/17 09/02/17 07:00 15:00 23:00 07:00 15:00 23:00 Intake Total 100 ml 650 ml Output Total 1400 ml 1200 ml 700 ml Balance -1300 ml -550 ml -700 ml Intake Oral 550 ml IV Total 100 ml 100 ml Output Urine Total 1400 ml 1200 ml 700 ml # Bowel Movements 0 1 0 Physical Exam GENERAL: SKIN: Warm and dry. HEAD: Normocephalic. EYES: No scleral icterus. No injection or drainage. NECK: Supple, trachea midline. No JVD or lymphadenopathy. CARDIOVASCULAR: Regular rate and rhythm without murmurs, gallops, or rubs. RESPIRATORY: Breath sounds equal bilaterally. No accessory muscle use. GASTROINTESTINAL: Abdomen soft, non-tender, nondistended. MUSCULOSKELETAL: No cyanosis, or edema. BACK: Nontender without obvious deformity. No CVA tenderness. Laboratory Laboratory Tests Test 09/02/17 04:40 White Blood Count 6.8 TH/MM3 Red Blood Count 6.20 MIL/MM3 Hemoglobin 16.2 GM/DL Hematocrit 50.1 % Mean Corpuscular Volume 80.8 FL Mean Corpuscular Hemoglobin 26.1 PG Mean Corpuscular Hemoglobin Concent 32.3 % Red Cell Distribution Width 13.4 % Platelet Count 251 TH/MM3 Mean Platelet Volume 9.5 FL Neutrophils (%) (Auto) 73.0 % Lymphocytes (%) (Auto) 14.7 % Monocytes (%) (Auto) 11.1 % Eosinophils (%) (Auto) 1.0 % Basophils (%) (Auto) 0.2 % Neutrophils # (Auto) 4.9 TH/MM3 Lymphocytes # (Auto) 1.0 TH/MM3 Monocytes # (Auto) 0.8 TH/MM3 Eosinophils # (Auto) 0.1 TH/MM3 Basophils # (Auto) 0.0 TH/MM3 CBC Comment DIFF FINAL Differential Comment Blood Urea Nitrogen 28 MG/DL Creatinine 1.19 MG/DL Random Glucose 94 MG/DL Calcium Level 9.5 MG/DL Magnesium Level 2.3 MG/DL Sodium Level 138 MEQ/L Potassium Level 3.7 MEQ/L Chloride Level 96 MEQ/L Carbon Dioxide Level 30.4 MEQ/L Anion Gap 12 MEQ/L Estimat Glomerular Filtration Rate 78 ML/MIN B-Type Natriuretic Peptide 601 PG/ML Digoxin Level 0.6 NG/ML Assessment and Plan Problem List: (1) Mitral regurgitation ICD Codes: I34.0 - Nonrheumatic mitral (valve) insufficiency (2) Pulmonary HTN ICD Codes: I27.20 - Pulmonary hypertension, unspecified (3) Systolic CHF, acute ICD Codes: I50.21 - Acute systolic (congestive) heart failure Status: Acute (4) CHF (congestive heart failure) ICD Codes: I50.9 - Heart failure, unspecified Status: Chronic (5) Hepatitis C ICD Codes: B19.20 - Unspecified viral hepatitis C without hepatic coma Status: Acute (6) Cocaine abuse ICD Codes: F14.10 - Cocaine abuse, uncomplicated Status: Chronic (7) Diabetes mellitus ICD Codes: E11.9 - Diabetes mellitus Status: Chronic (8) Cardiomyopathy ICD Codes: I42.9 - Cardiomyopathy, unspecified Status: Acute (9) Pulmonary edema ICD Codes: J81.1 - Chronic pulmonary edema Status: Acute (10) Illicit drug use ICD Codes: F19.90 - Other psychoactive substance use, unspecified, uncomplicated Status: Acute Assessment and Plan 1.) Cardiomyopathy with moderate to severe mr - increase aldactone 50 mg bid, continue lasix, lisinopril, dig, strongly advised patient to discontinue drugs; prognosis appears very poor, f/u bnp, bmp, mag, dig level, case management consult to assist with acquisition of insurance and out patient referral for heart transplant evaluation Gonsalo Lopez MD Sep 02, 2017 14:29
[2017-09-02] MEDS ORDERED: CARVEDILOL 3.125 MG TAB PO ONE (14:30)
[2017-09-02] MEDS: LISINOPRIL 5 MG TAB PO SCH (17:46)
[2017-09-02] MEDS: SPIRONOLACTONE 50 MG TAB PO SCH (17:46)
[2017-09-02] MEDS: CARVEDILOL 3.125 MG TAB PO SCH (19:37)
[2017-09-03] VITALS: BP 115/77; PULSE 68; RESP 21; TEMP 97.8
[2017-09-03] MEDS: RESP: ALBUTEROL 2.5 MG/IPRATROPIUM 0.5 MG NEB (SCH) INH ×3 (03:45→15:18)
[2017-09-03 04:00] VITALS: BP 119/77; PULSE 71; RESP 21; TEMP 98
[2017-09-03] MEDS: CHLORHEXIDINE GLUCONATE 2 % 1 PACK (2 CLOTHS) TOP SCH (04:00)
[2017-09-03 05:34] LABS: BICARBONATE 30.2 MEQ/L (21.0-32.0); CALCIUM 9.3 MG/DL (8.5-10.1); CREATININE 1.13 MG/DL (0.60-1.30); DIGOXIN 0.8 NG/ML (0.8-2.0)
[2017-09-03] MEDS: INSULIN ASPART SUPPLEMENTAL SCALE SQ SCH ×3 (06:00→12:00)
--- NOTE | 2017-09-03 07:59 | HHI.PR ---
Subjective Remarks in no acute distress. no sob or chest pain. no new complaints. d/w the RN and no acute issues over night. Objective Vitals Vital Signs Date Time Temp Pulse Resp B/P (MAP) Pulse Ox O2 Delivery O2 Flow Rate FiO2 09/03/17 04:00 98.0 71 21 119/77 (91) 09/03/17 04:00 71 09/03/17 00:00 68 09/03/17 00:00 97.8 68 21 115/77 (90) 09/02/17 20:39 95 21 09/02/17 20:00 97.9 84 30 124/66 (85) 95 09/02/17 20:00 84 09/02/17 16:00 98.1 83 23 131/80 (97) 95 09/02/17 16:00 83 09/02/17 12:00 76 09/02/17 12:00 97.6 76 24 105/71 (82) 98 09/02/17 08:45 96 Nasal Cannula 2.00 09/02/17 08:00 98.3 72 23 119/78 (92) 99 09/02/17 08:00 72 I/O 09/02/17 09/02/17 09/02/17 09/03/17 09/03/17 09/03/17 07:00 15:00 23:00 07:00 15:00 23:00 Intake Total 800 ml 420 ml Output Total 700 ml 950 ml 650 ml Balance -700 ml -150 ml -230 ml Intake Oral 800 ml 420 ml Output Urine Total 700 ml 950 ml 650 ml # Bowel Movements 0 0 Result Diagram: 09/02/17 0440 09/03/17 0415 Imaging Last Impressions Chest X-Ray 08/31/17 0000 Signed Impressions: CONCLUSION: Mild improvement in the right lower lung infiltrate compared to the prior study . Otherwise, stable exam. CT Angiography 08/30/17 0000 Signed Impressions: CONCLUSION: 1. No evidence of pulmonary embolism. 2. Diffuse infiltrates bilaterally consistent with moderate pulmonary edema an d/or pneumonia. Clinical correlation is recommended. 3. Small bilateral pleural effusions (right slightly larger than left) are not ed. 4. Cardiomegaly. Objective Remarks GENERAL: This is a well-nourished, well-developed patient, in no apparent distress. CARDIOVASCULAR: Regular rate and regular rhythm without murmurs, gallops, or rubs. RESPIRATORY: Clear to auscultation. Breath sounds equal bilaterally. No wheezes , rales, or rhonchi. GASTROINTESTINAL: Abdomen soft, non-tender, nondistended. Normal, active bowel sounds MUSCULOSKELETAL: Extremities without clubbing, cyanosis, or edema. NEURO: Alert & Oriented x4 to person, place, time, situation. Moves all ext x4 Procedures cardiac cath. Medications and IVs Inpatient Medications Acetaminophen (Tylenol) 650 mg Q6H PRN PO PAIN 1-5 AND/OR FEVER >101F; Start at 20:00 Albuterol/ Ipratropium (Duoneb Neb) 1 ampule Q2HR NEB PRN INH WHEEZING; Start 08/30/17 at 20:00 Amlodipine Besylate (Norvasc) 5 mg DAILY PO Last administered on 09/02/17at 08:15 ; Start 08/31/17 at 09:00 Aspirin (Aspirin Chew) 81 mg DAILY PO Last administered on 09/02/17at 08:15; Start 08/31/17 at 09:00 Aspirin (Ecotrin Ec) 81 mg DAILY PO Last administered on 09/01/17at 09:52; Start 08/31/17 at 09:00; Stop 09/01/17 at 16:07; Status DC Aztreonam 2000 mg/ Sodium Chloride 100 ml @ 200 mls/hr Q8H IV Last administered on 09/01/17at 05:58; Start 08/30/17 at 23:00; Stop 09/01/17 at 08:15; Status DC Bacitracin (Bacitracin Oint Packet) 0.9 gm ONCE ONCE TOP ; Start 09/01/17 at 15: 15; Stop 09/01/17 at 16:06; Status DC Bisacodyl (Dulcolax Supp) 10 mg DAILY PRN RECTAL SEVERE CONSITIPATION; Start at 20:00 Carvedilol (Coreg) 3.125 mg Q12HR PO Last administered on 09/02/17at 19:37; Start 09/02/17 at 21:00 Chlorhexidine Gluconate (Chlorhexidine 2% Cloth) 3 pack UNSCH PRN TOP HYGIENIC CARE; Start 08/30/17 at 20:00 Dextrose (D50w (Vial) Inj) 50 ml UNSCH PRN IV PUSH HYPOGLYCEMIA-SEE COMMENTS; Start 08/30/17 at 23:00 Digoxin (Lanoxin Inj) 0.5 mg ONCE ONCE IV PUSH Last administered on 08/30/17 18:51; Start 08/30/17 at 18:15; Stop 08/30/17 at 18:20; Status DC Digoxin (Lanoxin) 0.25 mg DAILY PO Last administered on 09/02/17 08:15; Start 08/31/17 at 09:00 Ergocalciferol (Drisdol) 50,000 units Q7D PO Last administered on 08/30/17 20: 56; Start 08/30/17 at 20:00 Famotidine (Pepcid Inj) 20 mg Q12HR IV PUSH Last administered on 08/31/17 09:37 ; Start 08/30/17 at 21:00; Stop 08/31/17 at 11:57; Status DC Famotidine (Pepcid) 20 mg BID PO Last administered on 09/02/17 19:37; Start 08/31/17 at 21:00 Furosemide (Lasix Inj) 40 mg DAILY IV PUSH Last administered on 09/02/17 08:14 ; Start 09/02/17 at 09:00 Glucagon (Glucagon Inj) 1 mg UNSCH PRN OTHER HYPOGLYCEMIA-SEE COMMENTS; Start 08/30/17 at 23:00 Heparin Sodium (Porcine) (Heparin Inj) 5,000 units Q8H SQ Last administered on 09/01/17 03:24; Start 08/30/17 at 20:00; Stop 09/01/17 at 16:36; Status DC Insulin Aspart (NovoLOG SUPPLEMENTAL SCALE) 1 Q6HR SQ Last administered on at 06:00; Start 08/31/17 at 12:00 Labetalol HCl (Trandate Inj) 10 mg Q4H PRN IV PUSH SBP>160, DBP>90 Last administered on 09/01/17 03:24; Start 09/01/17 at 03:15 Lactulose (Lactulose Liq) 30 ml DAILY PRN PO SEVERE CONSITIPATION; Start at 20:00 Lisinopril (Prinivil) 2.5 mg DAILY PO Last administered on 09/02/17at 17:46; Start 09/02/17 at 09:00 Lorazepam (Ativan Inj) 0.5 mg ONCE ONCE IV PUSH ; Start 08/30/17 at 17:00; Stop 08/30/17 at 17:01; Status DC Magnesium Hydroxide (Milk Of Magnron Liq) 30 ml Q12H PRN PO Mild constipation ; Start 08/30/17 at 20:00 Magnesium Oxide (Mag-Ox) 800 mg UNSCH PRN PO For Magnesium 1.2 - 1.6 mg/dL; Start 08/31/17 at 11:00; Stop 09/01/17 at 08:15; Status DC Magnesium Sulfate 2 gm/Sodium Chloride 100 ml @ 50 mls/hr UNSCH PRN IV For Magnesium 1.2 - 1.6 mg/dL; Start 08/31/17 at 11:00; Stop 09/01/17 at 08:15; Status DC Magnesium Sulfate 4 gm/Sodium Chloride 100 ml @ 50 mls/hr UNSCH PRN IV For Magnesium 0.9 - 1.1 mg/dL; Start 08/31/17 at 11:00; Stop 09/01/17 at 08:15; Status DC Miscellaneous Information 1 ONCE ONCE XX ; Start 09/01/17 at 15:15; Stop at 16:36; Status DC Miscellaneous Information ([facility] [facility]) 1 Q361D XX Last administered on 08/30/17at 22:00; Start 08/30/17 at 20:00 Morphine Sulfate (Morphine Inj) 2 mg Q2H PRN IV PUSH PAIN SCALE 6 TO 10 Last administered on 08/31/17at 20:46; Start 08/30/17 at 20:00 Ondansetron HCl (Zofran Odt) 4 mg Q6H PRN PO NAUSEA/VOMITING; Start 08/30/17 at 20:30 Piperacillin Sod/ Tazobactam Sod 100 ml @ 200 mls/hr Q6H IV Last administered on 08/31/17at 04:39; Start 08/30/17 at 23:00; Stop 08/31/17 at 10:52; Status DC Pneumococcal Polyvalent Vaccine (Pneumovax-23 Inj) 25 mcg ONCE ONCE IM Last administered on 09/01/17at 09:51; Start 09/01/17 at 10:00; Stop 09/01/17 at 10:01; Status DC Potassium Phosphate (K-Phos) 2,000 mg UNSCH PRN PO/TUBE SEE LABEL COMMENTS; Start 08/31/17 at 11:00; Stop 09/01/17 at 08:15; Status DC Potassium Phosphate 30 mmol/ Sodium Chloride 260 ml @ 42 mls/hr UNSCH PRN IV SEE LABEL COMMENTS; Start 08/31/17 at 11:00; Stop 09/01/17 at 08:15; Status DC Potassium Bicarb/ Potassium Chloride (K-Lyte Cl Eff) 50 meq UNSCH PRN PO For Potassium 3.3 - 3.5 mEq/L; Start 08/31/17 at 11:00; Stop 09/01/17 at 08:15; Status DC Potassium Chloride 100 ml @ 50 mls/hr Q2H PRN IV For Potassium 3.3 - 3.5 mEq/L ; Start 08/31/17 at 11:00; Stop 09/01/17 at 08:15; Status DC Senna/Docusate Sodium (Rula-Colace) 1 tab BID PO Last administered on 09/02/17at 08:15; Start 08/30/17 at 21:00 Sennosides (Senokot) 17.2 mg Q12H PRN PO Moderate constipation; Start 08/30/17 at 20:00 Sodium Chloride (NS Flush) 2 ml UNSCH PRN IV FLUSH FLUSH AFTER USING IV ACCESS ; Start 09/01/17 at 15:15 Sodium Phosphate 30 mmol/Sodium Chloride 250 ml @ 42 mls/hr UNSCH PRN IV For Phosphorus < 2.5 mg/dL; Start 08/31/17 at 11:00; Stop 09/01/17 at 08:15; Status DC Spironolactone (Aldactone) 50 mg BID@09,18 PO Last administered on 09/02/17at 17: 46; Start 09/02/17 at 18:00 Temazepam (Restoril) 15 mg HS PRN PO INSOMNIA; Start 08/30/17 at 20:00 Vancomycin HCl 1000 mg/Sodium Chloride 250 ml @ 250 mls/hr ONCE ONCE IV Last administered on 08/30/17at 15:30; Start 08/30/17 at 15:15; Stop 08/30/17 at 16:14; Status DC A/P Assessment and Plan A/P acute Respiratory failure due to Pulmonary edema / acute on chronic systolic CHF - improving. moderate to severe MR s/p cardiac cath with: Angiographically no significant coronary artery disease/ Nonischemic cardiomyopathy up to 25%, global hypokinesis. continue aspirin,lasix, digoxin , aldactone and lisinopril. walk test today. cardiology following. acute kidney injury; improved- continue to monitor. Diabetes mellitus; accu-check with SSI; resume long-acting insulin. Hypertension; continue amlodipine, lisinopril polysubstance abuse; counselled on quitting illicit drug abuse. Discharge Planning possible dc home later today if passes the walk test and cleared by cardiology. see med list. f/u; pcp and cardiology. d/w the patient and RN. Michael Yeung MD Sep 03, 2017 07:59
[2017-09-03 08:00] VITALS: BP 106/69; PULSE 69; RESP 18; TEMP 98.1
[2017-09-03] MEDS ORDERED: ALDA50TA2 PO (08:01)
[2017-09-03] MEDS ORDERED: CARV3.125 PO (08:01)
[2017-09-03] MEDS ORDERED: FURO1TAB60 PO (08:01)
[2017-09-03] MEDS ORDERED: DIGO0.25 PO (08:01)
[2017-09-03] MEDS ORDERED: LISI-519 PO (08:01)
[2017-09-03] MEDS: ASPIRIN 81 MG CHEW TAB PO SCH (08:48)
[2017-09-03] MEDS: amLODIPine BESYLATE 5 MG TAB PO SCH (08:49)
[2017-09-03] MEDS: FUROSEMIDE 40 MG/4 ML VIAL IV PUSH SCH (08:49)
[2017-09-03] MEDS: DOCUSATE SODIUM 50 MG/SENNA 8.6 MG TAB PO SCH (08:49)
[2017-09-03] MEDS: CARVEDILOL 3.125 MG TAB PO SCH (08:49)
[2017-09-03] MEDS: SODIUM CHLORIDE 0.9% FLUSH 10 ML FLUSH IV FLUSH SCH ×2 (08:49)
[2017-09-03] MEDS: FAMOTIDINE 20 MG TAB PO SCH (08:49)
[2017-09-03] MEDS: LISINOPRIL 5 MG TAB PO SCH (08:50)
[2017-09-03] MEDS: DIGOXIN 0.25 MG TAB PO SCH (08:50)
[2017-09-03] MEDS: SPIRONOLACTONE 50 MG TAB PO SCH (08:51)
[2017-09-03 09:53] VITALS: O2SAT 93
[2017-09-03 12:00] VITALS: BP 110/59; PULSE 77; RESP 28; TEMP 98.3; O2SAT 97
--- NOTE | 2017-09-03 13:42 | PD.CARD.PN ---
Subjective Subjective Remarks appears comfortable, feels better, alert in nad Objective Medications Current Medications Medications (Trade) Dose Ordered Sig/Joshua Route Start Time Stop Time Status Last Admin (Norvasc) 5 mg DAILY PO 08/31/17 09:00 09/03/17 08:49 (Aspirin Chew) 81 mg DAILY PO 08/31/17 09:00 09/03/17 08:48 (Drisdol) 50,000 units Q7D PO 08/30/17 20:00 08/30/17 20:56 (NS Flush) 2 ml BID IV FLUSH 08/30/17 21:00 09/03/17 08:49 (Tylenol) 650 mg Q6H PRN PO 08/30/17 20:00 (Morphine Inj) 2 mg Q2H PRN IV PUSH 08/30/17 20:00 08/31/17 20:46 (Zofran Odt) 4 mg Q6H PRN PO 08/30/17 20:30 (Restoril) 15 mg HS PRN PO 08/30/17 20:00 (Duoneb Neb) 1 ampule Q6HR NEB INH 08/30/17 22:00 09/03/17 09:53 (Duoneb Neb) 1 ampule Q2HR NEB PRN INH 08/30/17 20:00 ([facility] [place] Nursing Information) 1 Q361D XX 08/30/17 20:00 08/30/17 22:00 (Chlorhexidine 2% Cloth) 3 pack Taper DAILY@04 TOP 08/31/17 04:00 08/27/18 03:59 09/03/17 04:00 (Chlorhexidine 2% Cloth) 3 pack UNSCH PRN TOP 08/30/17 20:00 (Rula-Colace) 1 tab BID PO 08/30/17 21:00 09/03/17 08:49 (Milk Of Magnesia Liq) 30 ml Q12H PRN PO 08/30/17 20:00 (Senokot) 17.2 mg Q12H PRN PO 08/30/17 20:00 (Dulcolax Supp) 10 mg DAILY PRN RECTAL 08/30/17 20:00 (Lactulose Liq) 30 ml DAILY PRN PO 08/30/17 20:00 (D50w (Vial) Inj) 50 ml UNSCH PRN IV PUSH 08/30/17 23:00 (Glucagon Inj) 1 mg UNSCH PRN OTHER 08/30/17 23:00 (Lanoxin) 0.25 mg DAILY PO 08/31/17 09:00 09/03/17 08:50 (NovoLOG SUPPLEMENTAL SCALE) 1 Q6HR SQ 08/31/17 12:00 09/03/17 12:00 (Pepcid) 20 mg BID PO 08/31/17 21:00 09/03/17 08:49 (Trandate Inj) 10 mg Q4H PRN IV PUSH 09/01/17 03:15 09/01/17 03:24 (NS Flush) 2 ml BID IV FLUSH 09/01/17 21:00 09/03/17 08:49 (NS Flush) 2 ml UNSCH PRN IV FLUSH 09/01/17 15:15 (Prinivil) 2.5 mg DAILY PO 09/02/17 09:00 09/03/17 08:50 (Lasix Inj) 40 mg DAILY IV PUSH 09/02/17 09:00 09/03/17 08:49 (Aldactone) 50 mg BID@,18 PO 09/02/17 18:00 09/03/17 08:51 (Coreg) 3.125 mg Q12HR PO 09/02/17 21:00 09/03/17 08:49 Vital Signs / I&O Vital Signs Date Time Temp Pulse Resp B/P (MAP) Pulse Ox O2 Delivery O2 Flow Rate FiO2 09/03/17 09:53 93 09/03/17 08:00 69 09/03/17 08:00 98.1 69 18 106/69 (81) 09/03/17 04:00 98.0 71 21 119/77 (91) 09/03/17 04:00 71 09/03/17 00:00 68 09/03/17 00:00 97.8 68 21 115/77 (90) 09/02/17 20:39 95 21 09/02/17 20:00 97.9 84 30 124/66 (85) 95 09/02/17 20:00 84 09/02/17 16:00 98.1 83 23 131/80 (97) 95 09/02/17 16:00 83 I/O 09/02/17 09/02/17 09/02/17 09/03/1709/03/18 6/7/18 07:00 15:00 23:00 07:00 15:00 23:00 Intake Total 800 ml 420 ml Output Total 700 ml 950 ml 650 ml Balance -700 ml -150 ml -230 ml Intake Oral 800 ml 420 ml Output Urine Total 700 ml 950 ml 650 ml # Bowel Movements 0 0 Physical Exam GENERAL: SKIN: Warm and dry. HEAD: Normocephalic. EYES: No scleral icterus. No injection or drainage. NECK: Supple, trachea midline. No JVD or lymphadenopathy. CARDIOVASCULAR: Regular rate and rhythm without murmurs, gallops, or rubs. RESPIRATORY: Breath sounds equal bilaterally. No accessory muscle use. GASTROINTESTINAL: Abdomen soft, non-tender, nondistended. MUSCULOSKELETAL: No cyanosis, or edema. BACK: Nontender without obvious deformity. No CVA tenderness. Laboratory Laboratory Tests Test 09/03/17 04:15 Blood Urea Nitrogen 34 MG/DL Creatinine 1.13 MG/DL Random Glucose 199 MG/DL Calcium Level 9.3 MG/DL Magnesium Level 2.0 MG/DL Sodium Level 136 MEQ/L Potassium Level 4.0 MEQ/L Chloride Level 95 MEQ/L Carbon Dioxide Level 30.2 MEQ/L Anion Gap 11 MEQ/L Estimat Glomerular Filtration Rate 83 ML/MIN B-Type Natriuretic Peptide 221 PG/ML Digoxin Level 0.8 NG/ML Assessment and Plan Problem List: (1) Mitral regurgitation ICD Codes: I34.0 - Nonrheumatic mitral (valve) insufficiency (2) Pulmonary HTN ICD Codes: I27.20 - Pulmonary hypertension, unspecified (3) Systolic CHF, acute ICD Codes: I50.21 - Acute systolic (congestive) heart failure Status: Acute (4) CHF (congestive heart failure) ICD Codes: I50.9 - Heart failure, unspecified Status: Chronic (5) Hepatitis C ICD Codes: B19.20 - Unspecified viral hepatitis C without hepatic coma Status: Acute (6) Cocaine abuse ICD Codes: F14.10 - Cocaine abuse, uncomplicated Status: Chronic (7) Diabetes mellitus ICD Codes: E11.9 - Diabetes mellitus Status: Chronic (8) Cardiomyopathy ICD Codes: I42.9 - Cardiomyopathy, unspecified Status: Acute (9) Pulmonary edema ICD Codes: J81.1 - Chronic pulmonary edema Status: Acute (10) Illicit drug use ICD Codes: F19.90 - Other psychoactive substance use, unspecified, uncomplicated Status: Acute Assessment and Plan 1.) Cardiomyopathy with moderate to severe mr - continue aldactone 50 mg bid, continue lasix, lisinopril, dig, coreg, patient responding well to omt, euvolemic, strongly advised patient to discontinue drugs; prognosis appears very poor, f/u bnp, bmp, mag, dig level, case management consult to assist with acquisition of insurance and out patient referral for heart transplant evaluation; patient appears motivated to be medically compliant and abstain from drug use, he states he is going to live with his son, he knows he has a life threatening condition and the importance of medical compliance and abstinence from drugs Gonsalo Lopez MD Sep 03, 2017 13:42
[2017-09-03 16:00] VITALS: BP 113/70; PULSE 77; RESP 28; TEMP 97.7; O2SAT 95
--- NOTE | 2017-09-03 16:08 | HHI.DS ---
Discharge Summary Admission Date Aug 30, 2017 at 19:10 Discharge Date: Sep 03, 2017 Admitting Diagnosis Hypoxic Respiratory failure, PNA vs CHF (1) CHF (congestive heart failure) ICD Code: I50.9 - Heart failure, unspecified Diagnosis: Principal Status: Chronic Procedures cardiac cath. Brief History - From Admission 52-year-old male who about this time last year had a cardiac arrest due to cocaine and crack abuse requiring prolonged stay in the ICU and complicated by bedsores, presents today for an evaluation of 2-3 day history of shortness of breath. The patient has known history of cardiomyopathy. Family called 9 1 today when he became confused walked out into the living room wearing nothing but his underwear. The patient in the emergency department denied any chest pain abdominal pain nausea vomiting, he has had a cough nonproductive of sputum. No fevers. Chest x-ray shows enlarged cardiomegaly compared to previous images. The patient was evaluated by low heel builder on-call in the emergency department with recommendations of conservative treatment at this time. 2D echo is pending. Due to hypoxemia and respiratory failure he was placed on a facemask BiPAP with significant and his oxygenation. CBC/BMP: 09/02/17 0440 09/03/17 0415 Significant Findings Laboratory Tests Test 08/31/17 21:10 09/01/17 05:33 09/01/17 05:35 09/02/17 04:40 Blood Urea Nitrogen 29 MG/DL (7-18) 30 MG/DL (7-18) 28 MG/DL (7-18) Creatinine 1.73 MG/DL (0.60-1.30) 1.32 MG/DL (0.60-1.30) Random Glucose 176 MG/DL (74-106) 206 MG/DL (74-106) Estimat Glomerular Filtration Rate 51 ML/MIN (>89) 69 ML/MIN (>89) 78 ML/MIN (>89) Phosphorus Level 6.4 MG/DL (2.5-4.9) Chloride Level 95 MEQ/L (98-107) 96 MEQ/L (98-107) Digoxin Level 0.6 NG/ML (0.8-2.0) 0.6 NG/ML (0.8-2.0) Mean Corpuscular Hemoglobin 26.5 PG (27.0-34.0) 26.1 PG (27.0-34.0) Neutrophils (%) (Auto) 76.2 % (16.0-70.0) 73.0 % (16.0-70.0) B-Type Natriuretic Peptide 1403 PG/ML (0-100) 601 PG/ML (0-100) Red Blood Count 6.20 MIL/MM3 (4.50-5.90) Monocytes (%) (Auto) 11.1 % (0.0-8.0) Test 09/03/17 04:15 Blood Urea Nitrogen 34 MG/DL (7-18) Random Glucose 199 MG/DL (74-106) Chloride Level 95 MEQ/L (98-107) Estimat Glomerular Filtration Rate 83 ML/MIN (>89) B-Type Natriuretic Peptide 221 PG/ML (0-100) Imaging Last Impressions Chest X-Ray 08/31/17 0000 Signed Impressions: CONCLUSION: Mild improvement in the right lower lung infiltrate compared to the prior study . Otherwise, stable exam. CT Angiography 08/30/17 0000 Signed Impressions: CONCLUSION: 1. No evidence of pulmonary embolism. 2. Diffuse infiltrates bilaterally consistent with moderate pulmonary edema an d/or pneumonia. Clinical correlation is recommended. 3. Small bilateral pleural effusions (right slightly larger than left) are not ed. 4. Cardiomegaly. PE at Discharge GENERAL: This is a well-nourished, well-developed patient, in no apparent distress. CARDIOVASCULAR: Regular rate and regular rhythm without murmurs, gallops, or rubs. RESPIRATORY: Clear to auscultation. Breath sounds equal bilaterally. No wheezes , rales, or rhonchi. GASTROINTESTINAL: Abdomen soft, non-tender, nondistended. Normal, active bowel sounds MUSCULOSKELETAL: Extremities without clubbing, cyanosis, or edema. NEURO: Alert & Oriented x4 to person, place, time, situation. Moves all ext x4 Hospital Course acute Respiratory failure due to Pulmonary edema / acute on chronic systolic CHF - improving. moderate to severe MR s/p cardiac cath with: Angiographically no significant coronary artery disease/ Nonischemic cardiomyopathy up to 25%, global hypokinesis. continue aspirin,lasix, digoxin , aldactone and lisinopril. passed the walk test. cardiology following. acute kidney injury; improved- continue to monitor. Diabetes mellitus; accu-check with SSI; resume long-acting insulin. Hypertension; continue amlodipine, lisinopril polysubstance abuse; counselled on quitting illicit drug abuse. Pt Condition on Discharge: Fair Discharge Disposition: Discharge Home Discharge Time: <= 30 minutes Discharge Instructions DIET: Follow Instructions for: Heart Healthy Diet Activities you can perform: Regular-No Restrictions Michael Yeung MD Sep 03, 2017 16:08
== END 2017-09-03 16:43 | disposition home or self-care (01) | DRG 286 ==
LOC: NEPC 14:55 → NEDA 19:10 → HIMN 21:35
PROVIDERS: ADMIT Internal Medicine; ATTEND Internal Medicine
PROC: 5A09357 Assistance with Respiratory Ventilation, Less than 24 Consecutive Hours, Continuous Positive Airway Pressure (ICD-10-PCS; 2017-08-30)
PROC: B2151ZZ Fluoroscopy of Left Heart using Low Osmolar Contrast (ICD-10-PCS; 2017-09-01)
PROC: B2111ZZ Fluoroscopy of Multiple Coronary Arteries using Low Osmolar Contrast (ICD-10-PCS; 2017-09-01)
PROC: 4A023N8 Measurement of Cardiac Sampling and Pressure, Bilateral, Percutaneous Approach (ICD-10-PCS; principal; 2017-09-01 14:15)
DX: I11.0 Hypertensive heart disease with heart failure (principal); J96.01 Acute respiratory failure with hypoxia; N17.9 Acute kidney failure, unspecified; E87.2 Acidosis; I50.23 Acute on chronic systolic (congestive) heart failure; E11.9 Type 2 diabetes mellitus without complications; F14.10 Cocaine abuse, uncomplicated; I25.5 Ischemic cardiomyopathy; R74.8 Abnormal levels of other serum enzymes; B19.20 Unspecified viral hepatitis C without hepatic coma; I27.20 Pulmonary hypertension, unspecified; I34.0 Nonrheumatic mitral (valve) insufficiency; Z86.74 Personal history of sudden cardiac arrest; Z23 Encounter for immunization; I25.2 Old myocardial infarction; Z86.73 Personal history of transient ischemic attack (TIA), and cerebral infarction without residual deficits; Z79.4 Long term (current) use of insulin; Z79.82 Long term (current) use of aspirin
CPT/HCPCS: 71045; 71275; 80048; 80053; 80162; 80307; 81001; 82550; 82552; 82805; 82810; 83605; 83690; 83735; 83880; 84100; 84484; 85025; 85610; 85730; 87040; 87641; 90732; 93005; 93306; 93460; 94002; 94003; 94618; 94640; 94664; 96365; 96367; 96375; 99152; C1769; C1893; J1160; J1644; J1815; J1940; J2060; J2250; J2270; J2543; J3010; J3370; J7050; Q9967

== ENCOUNTER 2017-10-06 19:57 | Inpatient (IN) ==
[2017-10-06] MEDS ORDERED: Sodium Chlor 0.9% Inj 500 ML IV.SIG ONE (23:32)
--- NOTE | 2017-10-06 23:32 | ED ---
HPI General Chief complaint: Weakness Stated complaint: weakness Time Seen by Provider: 10/06/17 23:28 History of Present Illness HPI Narrative: 52-year-old male with history of noncompliance, nonischemic cardiomyopathy with EF of 25% during last hospitalization 09/05/17 acute kidney injury diabetes hypertension and ongoing cocaine abuse. Patient presents for generalized weakness for some time now. Patient takes no medications. Patient is been diabetic since 2001. Patient states that while at work today just had generalized fatigue and weakness. No report of new onset unilateral focal numbness tingling or weakness or ataxia gait no report of altered mentation or difficulty with speech. Patient does complain of some overall dry mouth increased urine output and at times some blurry vision. Patient states he did use cocaine today. Patient denies any fever chills nausea vomiting abdominal pain chest pain sweats near syncope syncope but has had some mild shortness of breath. Patient does not report hemoptysis hematemesis coffee-ground emesis melena or hematochezia. Patient denies any known injury or trauma. Patient is unable to identify specific exacerbating or alleviating factors. Related Data Home Medications Medication Instructions Recorded Confirmed No Known Home Medications 10/07/17 10/07/17 Allergies Allergy/AdvReac Type Severity Reaction Status Date / Time *MDRO Multi-Drug Resistant AdvReac Unknown Itching Uncoded 10/07/17 02:56 Organism [facility] Medical History Medical History Abdominal hernia (Acute) Diabetes (Acute) Heart attack (Acute) Surgical History Surgical History H/O heart artery stent (Acute) Social History Social History Substance History: Active Abuse Second Hand Smoke Exposure: Yes Smoking Status: Former smoker Tobacco Type: Cigarettes How Often Do You Have a Drink Containing Alcohol: Never Recent Travel in [facility] within the Last 8 Weeks: No Recent Out of Country Travel within the Last 8 Weeks: No Exam Narrative Exam Narrative: GENERAL: Well-developed thin male in no acute distress no respiratory distress; GCS 15 SKIN: Focused skin assessment warm/dry. HEAD: Atraumatic. Normocephalic. EYES: Pupils equal and round. No scleral icterus. No injection or drainage. ENT: No nasal bleeding or discharge. Mucous membranes pink and moist. NECK: Trachea midline. No JVD. CARDIOVASCULAR: Regular rate and rhythm. No murmur appreciated. RESPIRATORY: No accessory muscle use. Clear to auscultation. Breath sounds equal bilaterally. GASTROINTESTINAL: Abdomen soft, non-tender, nondistended. Hepatic and splenic margins not palpable. MUSCULOSKELETAL: No obvious deformities. No clubbing. No cyanosis. No edema. NEUROLOGICAL: Awake and alert. No obvious cranial nerve deficits. Motor grossly within normal limits. Normal speech. PSYCHIATRIC: Appropriate mood and affect; insight and judgment normal. Course Initial Documented Vital Signs Temperature 98.2 F 10/06/17 20:48 Pulse Rate 52 L 10/06/17 20:48 Respiratory Rate 15 10/06/17 20:48 Blood Pressure 141/81 H 10/06/17 20:48 Pulse Oximetry 98 10/06/17 20:48 Last Documented Vital Signs Temperature 98.2 F 10/06/17 20:48 Pulse Rate 77 10/07/17 02:53 Respiratory Rate 20 10/07/17 02:53 Blood Pressure 123/90 10/07/17 02:53 Pulse Oximetry 98 10/06/17 20:48 Medical Decision Making MDM Narrative Medical decision making narrative: 52-year-old male with multiple medical problems including diabetes and ongoing cocaine abuse presents to the emergency department complaint of thirst dry mouth increased urine output intermittent blurry vision and ongoing cocaine use. Patient placed on research advisor IV access obtained specimens collected and sent for resulting patient has prior history of volume overload/CHF no evidence for heart failure at this time and patient appears dehydrated will gently bolus patient with 500 cc bolus of normal saline and possible repeat bolus bedside glucose is read as high patient presents as uncontrolled diabetes and ongoing substance abuse. Also received dose of insulin. Patient with cardiac catheterization during last hospitalization in August did not identify any coronary vessel disease. Patient has nonischemic cardiomyopathy. At 2:20 AM chest x-ray reveals no acute process and previous infiltrate has resolved; CK is 294 not elevated troponin I is less than 0.02, not elevated BNP is mildly elevated at 582; metabolic panel is remarkable for serum glucose of 644 with normal bicarb of 30 and normal anion gap of 10 renal insufficiency BUN is 23 with a creatinine of 1.68 potassium is in normal range at 3.7; patient did receive weight-based insulin 6 units IV repeat glucose post insulin administration at 1 hour has not yet been measured and patient did receive 500 cc bolus of normal saline; urinalysis shows glucose but no ketones; beta hydroxybutyric acid is minimally elevated at 0.57 Differential Diagnosis Differential Diagnosis: weakness, uncontrolled diabetes, ACS, polysubstance abuse, electrolyte disturbance, arrhythmia, also to consider TIA no focal exam for CVA Medical Records Medical records reviewed: Yes I reviewed the patient's medical records. Lab Data Result diagrams: 10/06/17 23:30 10/07/17 00:45 Lab Results 10/06/17 10/06/17 10/07/17 Range/Units 23:25 23:30 00:15 WBC 8.1 (4.0-11.0) th/mm3 RBC 6.55 H (4.50-5.90) mil/mm3 Hgb 17.1 H (13.0-17.0) gm/dL Hct 53.1 H (39.0-51.0) % MCV 81.0 (80.0-100.0) fL MCH 26.2 L (27.0-34.0) pg MCHC 32.3 (32.0-36.0) % RDW 13.3 (11.6-17.2) % Plt Count 144 L (150-450) th/mm3 MPV 11.1 H (7.0-11.0) fL Neut % (Auto) 70.3 H (16.0-70.0) % Lymph % (Auto) 22.5 (9.0-44.0) % Delta % (Auto) 5.1 (0.0-8.0) % Eos % (Auto) 1.8 (0.0-4.0) % Baso % (Auto) 0.3 (0.0-2.0) % Neut # (Auto) 5.7 (1.8-7.7) th/mm3 Lymph # (Auto) 1.8 (1.0-4.8) th/mm3 Delta # (Auto) 0.4 (0.0-0.9) th/mm3 Eos # (Auto) 0.2 (0.0-0.4) th/mm3 Baso # (Auto) 0.0 (0.0-0.2) th/mm3 WBC Differential . Differential Comment Auto diff final Sodium (136-145) meq/L Potassium (3.5-5.1) meq/L Chloride (98-107) meq/L Carbon Dioxide (21.0-32.0) meq/L Anion Gap (5-15) meq/L BUN (7-18) mg/dL Creatinine (0.60-1.30) mg/dL Estimated GFR (>89) mL/min POC Glucose Greater than 600 H* (68-110) mg/dl Random Glucose (74-106) mg/dL Calcium (8.5-10.1) mg/dL Magnesium (1.5-2.5) mg/dL Total Bilirubin (0.2-1.0) mg/dL AST (15-37) U/L ALT (12-78) U/L Alkaline Phosphatase (45-117) U/L Total Creatine Kinase (39-308) U/L Troponin I (0.02-0.05) ng/mL B-Natriuretic Peptide (0-100) pg/mL Total Protein (6.4-8.2) g/dL Albumin (3.4-5.0) g/dL Beta-Hydroxybutyric Acd (0.00-0.39) mmol/L TSH (0.358-3.740) uIU/mL Urine Color Straw (Yellw/Straw) Urine Clarity Clear (Clear) Urine pH 6.0 (5.0-8.5) Ur Specific Douglas 1.027 (1.002-1.035) Urine Protein 30 H (Neg-Trace) mg/dL Urine Glucose (UA) 500 or greater (Negative) mg/dL Urine Ketones Trace (Negative) mg/dL Urine Occult Blood Small H (Negative) Urine Nitrate Negative (Negative) Urine Bilirubin Negative (Negative) Urine Urobilinogen Less than 2 (Less than 2) mg/dL Ur Leukocyte Esterase Negative (Negative) Urine WBC 1 (0-5) /hpf Urine Mucus Few H (Occasional) /lpf Micro UA Comment Culture not ind Urine Culture Comments Culture not ind Urine Opiates Screen (Neg) Ur Barbiturates Screen (Neg) Ur Amphetamines Screen (Neg) U Benzodiazepines Scrn (Neg) Urine Cocaine Screen (Neg) U Cannabinoids Screen (Neg) 10/07/17 10/07/17 10/07/17 Range/Units 00:15 00:45 00:45 WBC (4.0-11.0) th/mm3 RBC (4.50-5.90) mil/mm3 Hgb (13.0-17.0) gm/dL Hct (39.0-51.0) % MCV (80.0-100.0) fL MCH (27.0-34.0) pg MCHC (32.0-36.0) % RDW (11.6-17.2) % Plt Count (150-450) th/mm3 MPV (7.0-11.0) fL Neut % (Auto) (16.0-70.0) % Lymph % (Auto) (9.0-44.0) % Delta % (Auto) (0.0-8.0) % Eos % (Auto) (0.0-4.0) % Baso % (Auto) (0.0-2.0) % Neut # (Auto) (1.8-7.7) th/mm3 Lymph # (Auto) (1.0-4.8) th/mm3 Delta # (Auto) (0.0-0.9) th/mm3 Eos # (Auto) (0.0-0.4) th/mm3 Baso # (Auto) (0.0-0.2) th/mm3 WBC Differential Differential Comment Sodium 132 L (136-145) meq/L Potassium 3.7 (3.5-5.1) meq/L Chloride 92 L (98-107) meq/L Carbon Dioxide 30.0 (21.0-32.0) meq/L Anion Gap 10 (5-15) meq/L BUN 23 H (7-18) mg/dL Creatinine 1.68 H (0.60-1.30) mg/dL Estimated GFR 52 L (>89) mL/min POC Glucose (68-110) mg/dl Random Glucose 644 H* (74-106) mg/dL Calcium 9.5 (8.5-10.1) mg/dL Magnesium 2.5 (1.5-2.5) mg/dL Total Bilirubin 1.0 (0.2-1.0) mg/dL AST 42 H (15-37) U/L ALT 87 H (12-78) U/L Alkaline Phosphatase 100 (45-117) U/L Total Creatine Kinase 294 (39-308) U/L Troponin I Less than 0.02 L (0.02-0.05) ng/mL B-Natriuretic Peptide 582 H (0-100) pg/mL Total Protein 8.2 (6.4-8.2) g/dL Albumin 4.2 (3.4-5.0) g/dL Beta-Hydroxybutyric Acd 0.57 H (0.00-0.39) mmol/L TSH 0.638 (0.358-3.740) uIU/mL Urine Color (Yellw/Straw) Urine Clarity (Clear) Urine pH (5.0-8.5) Ur Specific Douglas (1.002-1.035) Urine Protein (Neg-Trace) mg/dL Urine Glucose (UA) (Negative) mg/dL Urine Ketones (Negative) mg/dL Urine Occult Blood (Negative) Urine Nitrate (Negative) Urine Bilirubin (Negative) Urine Urobilinogen (Less than 2) mg/dL Ur Leukocyte Esterase (Negative) Urine WBC (0-5) /hpf Urine Mucus (Occasional) /lpf Micro UA Comment Urine Culture Comments Urine Opiates Screen Neg (Neg) Ur Barbiturates Screen Neg (Neg) Ur Amphetamines Screen Neg (Neg) U Benzodiazepines Scrn Neg (Neg) Urine Cocaine Screen Pos (Neg) U Cannabinoids Screen Neg (Neg) 10/07/17 10/07/17 Range/Units 02:34 03:54 WBC (4.0-11.0) th/mm3 RBC (4.50-5.90) mil/mm3 Hgb (13.0-17.0) gm/dL Hct (39.0-51.0) % MCV (80.0-100.0) fL MCH (27.0-34.0) pg MCHC (32.0-36.0) % RDW (11.6-17.2) % Plt Count (150-450) th/mm3 MPV (7.0-11.0) fL Neut % (Auto) (16.0-70.0) % Lymph % (Auto) (9.0-44.0) % Delta % (Auto) (0.0-8.0) % Eos % (Auto) (0.0-4.0) % Baso % (Auto) (0.0-2.0) % Neut # (Auto) (1.8-7.7) th/mm3 Lymph # (Auto) (1.0-4.8) th/mm3 Delta # (Auto) (0.0-0.9) th/mm3 Eos # (Auto) (0.0-0.4) th/mm3 Baso # (Auto) (0.0-0.2) th/mm3 WBC Differential Differential Comment Sodium (136-145) meq/L Potassium (3.5-5.1) meq/L Chloride (98-107) meq/L Carbon Dioxide (21.0-32.0) meq/L Anion Gap (5-15) meq/L BUN (7-18) mg/dL Creatinine (0.60-1.30) mg/dL Estimated GFR (>89) mL/min POC Glucose 514 H* 382 H (68-110) mg/dl Random Glucose (74-106) mg/dL Calcium (8.5-10.1) mg/dL Magnesium (1.5-2.5) mg/dL Total Bilirubin (0.2-1.0) mg/dL AST (15-37) U/L ALT (12-78) U/L Alkaline Phosphatase (45-117) U/L Total Creatine Kinase (39-308) U/L Troponin I (0.02-0.05) ng/mL B-Natriuretic Peptide (0-100) pg/mL Total Protein (6.4-8.2) g/dL Albumin (3.4-5.0) g/dL Beta-Hydroxybutyric Acd (0.00-0.39) mmol/L TSH (0.358-3.740) uIU/mL Urine Color (Yellw/Straw) Urine Clarity (Clear) Urine pH (5.0-8.5) Ur Specific Douglas (1.002-1.035) Urine Protein (Neg-Trace) mg/dL Urine Glucose (UA) (Negative) mg/dL Urine Ketones (Negative) mg/dL Urine Occult Blood (Negative) Urine Nitrate (Negative) Urine Bilirubin (Negative) Urine Urobilinogen (Less than 2) mg/dL Ur Leukocyte Esterase (Negative) Urine WBC (0-5) /hpf Urine Mucus (Occasional) /lpf Micro UA Comment Urine Culture Comments Urine Opiates Screen (Neg) Ur Barbiturates Screen (Neg) Ur Amphetamines Screen (Neg) U Benzodiazepines Scrn (Neg) Urine Cocaine Screen (Neg) U Cannabinoids Screen (Neg) Urine drug screen positive for cocaine Repeat blood sugar post insulin 358 Imaging Data Radiologist's impression: ITS Impressions Chest X-Ray 10/06/17 23:32 CONCLUSION: 1. Interval resolution of right lower lobe airspace disease. 2. No acute abnormality. ECG Data EKG Prior to Arrival: No Prior ECG tracings: available for review Interpretation: EKG normal sinus rhythm rate [address] elevation nonspecific T-wave inversion marked LVH by voltage criteria Discharge Plan Discharge Disposition Patient Disposition: 30 Still Patient Discharge Condition Condition: Stable Discharge Details Diagnosis: Uncontrolled diabetes mellitus, Substance abuse, Weakness, Acute renal insufficiency, H/O CHF, Cocaine abuse Physicians Team ED Provider: Tabtaha Duncan Primary Care Provider: Primary Care Radha Gabriel Attending Provider: Jessica Sy Status ED Status: Admitted Patient
[2017-10-06 23:57] LABS: Baso % (Auto) 0.3 % (0.0-2.0); Eos # (Auto) 0.2 th/mm3 (0.0-0.4); Eos % (Auto) 1.8 % (0.0-4.0); Hematocrit 53.1 % (39.0-51.0); Hemoglobin 17.1 gm/dL (13.0-17.0); Lymph # (Auto) 1.8 th/mm3 (1.0-4.8); Lymph % (Auto) 22.5 % (9.0-44.0); Mean Corpuscular HGB Conc 32.3 % (32.0-36.0); Mean Corpuscular Hemoglobin 26.2 pg (27.0-34.0); Mean Platelet Volume 11.1 fL (7.0-11.0); Mono # (Auto) 0.4 th/mm3 (0.0-0.9); Mono % (Auto) 5.1 % (0.0-8.0); Neut # (Auto) 5.7 th/mm3 (1.8-7.7); Neut % (Auto) 70.3 % (16.0-70.0); Platelet Count 144 th/mm3 (150-450); Red Blood Count 6.55 mil/mm3 (4.50-5.90); Red Cell Distribution Width 13.3 % (11.6-17.2); White Blood Count 8.1 th/mm3 (4.0-11.0)
--- NOTE | 2017-10-07 00:34 | XR ---
EXAM DATE: 10/06/2017 11:57 PM EDT AGE/SEX: 52 years / Male INDICATIONS: Shortness of breath and generalized weakness. CLINICAL DATA: This is the patient's initial encounter. Patient reports that signs and symptoms have been present for 3 days and indicates a pain score of 0/10. MEDICAL/SURGICAL HISTORY: . Hypertension. . Cardiac stent. COMPARISON: [facility] [place]ST SING[place] AP, 08/31/2017. . FINDINGS: Interval resolution of right lower lobe airspace disease. The cardiomediastinal contours are unremark able. Osseous structures are intact. CONCLUSION: 1. Interval resolution of right lower lobe airspace disease. 2. No acute abnormality. Electronically signed by: Matthew Beard MD 10/07/2017 12:32 AM EDT
[2017-10-07 00:48] LABS: Bilirubin,Urine Negative (Negative); Clarity,Urine Clear (Clear); Color,Urine Straw (Yellw/Straw); Glucose,Urine (UA) 500 or Greater mg/dL (Negative); Leukocyte Esterase,Urine Negative (Negative); Mucus,Urine Few /lpf (Occasional); Nitrite,Urine Negative (Negative); Specific Gravity,Urine 1.027 (1.002-1.035)
[2017-10-07 01:22] LABS: Albumin 4.2 g/dL (3.4-5.0); Anion Gap 10 meq/L (5-15); Aspartate Aminotransferase 42 U/L (15-37); Blood Urea Nitrogen 23 mg/dL (7-18); Calcium 9.5 mg/dL (8.5-10.1); Chloride 92 meq/L (98-107); Glomerular Filtration Rate 52 mL/min (>89); Magnesium 2.5 mg/dL (1.5-2.5); Potassium 3.7 meq/L (3.5-5.1); Sodium 132 meq/L (136-145)
[2017-10-07 01:43] LABS: Alanine Aminotransferase 87 U/L (12-78); Alkaline Phosphatase 100 U/L (45-117); Beta Hydroxybutyric Acid 0.57 mmol/L (0.00-0.39); Creatine Kinase 294 U/L (39-308); Thyroid Stimulating Hormone 0.638 uIU/mL (0.358-3.740); Total Protein 8.2 g/dL (6.4-8.2)
[2017-10-07 01:46] LABS: Glucose,Random 644 mg/dL (74-106)
[2017-10-07] MEDS ORDERED: Sodium Chlor 0.9% Inj 250 ML IV.SIG ONE ×2 (02:36→03:36)
[2017-10-07 03:52] LABS: Amphetamine Screen,Urine Neg (Neg); Barbiturate Screen,Urine Neg (Neg); Cannabinoid Screen,Urine Neg (Neg); Cocaine Screen,Urine Pos (Neg)
[2017-10-07 04:01] LABS: Opiate Screen,Urine Neg (Neg)
[2017-10-07] MEDS ORDERED: Dextrose 50% in Water 50 ML Vial IV.PUSH PRN (05:07)
[2017-10-07] MEDS ORDERED: Bisacodyl 10 MG Supp RECTAL PRN (05:08)
[2017-10-07] MEDS ORDERED: Temazepam 15 MG Capsule PO PRN (05:08)
[2017-10-07] MEDS ORDERED: Acetaminophen 325 MG Tablet PO PRN (05:08)
[2017-10-07] MEDS: Insulin NovoLIN Regular Correctional Sugar Inj SQ SCH ×4 (08:03→20:54)
--- NOTE | 2017-10-07 08:36 | ECG ---
Date Performed: 10/07/2017 Time Performed: 02:28:23 PTAGE: 52 years EKG: Sinus rhythm LEFT ATRIAL ENLARGEMENT LEFT VENTRICULAR HYPERTROPHY AND ST-T CHANGE ABNORMAL ECG Compared to prior electrocardiogram, ST T-wave changes are more marked. PREVIOUS TRACING : 08/31/2017 01.54 DOCTOR: Rosas Gomez Interpretating Date/Time 10/07/2017 08:36:05
[2017-10-07] MEDS: Senna/Docusate Sodium 8.6/50 MG Tablet PO SCH ×2 (12:57→20:45)
--- NOTE | 2017-10-07 13:39 | P.HP ---
History of Present Illness Service: [facility] service Primary Care Physician: No Primary Care Physician Chief Complaint: Generalized weakness dry mouth History of Present Illness: Patient is a 52-year-old male with known history of diabetes type 2 insulin requiring, nonischemic cardiomyopathy with a known ejection fraction of 25% done in August 2017 , Chronic kidney insufficiency, cocaine positive substance abuse, hypertension who came to the ER complaining of generalized weakness dry mouth polyuria. Patient currently denies any fever chest pain or shortness of breath. Denies any leg swelling. Patient on review was just discharged her 04/2017 where a cardiac cath was done which shows none no significant CAD. EF of 25% with global hypokinesis. She he was discharged on the CHF regimen consisting of Aldactone Lasix digoxin Coreg lisinopril amlodipine which patient claims that she was not able he was not able to fill because he has no money. Patient currently is on the street. He does have a brother who has his own place but he cannot stay with him. On evaluation at the ER was noted to have hyperglycemia with a blood sugar of 640. Elevated BNP but clinically appears euvolemic. Patient admitted for further evaluation and management. Inpatient Certification: I certify that the inpatient services were ordered in accordance with Medicare regulations governing the order. This includes certification that hospital inpatient services are reasonable and necessary and in the case of services not specified as inpatient-only under 42 CFR 419.22(n), that they are appropriately provided as inpatient services in accordance to with the 2-midnight benchmark under 43 CFR 412.3(e) Estimated Total Length of Stay (Days): 2 Plans for Post Hospital Care: Not yet determined Review of Systems Constitutional: Reports fatigue, Reports lack of energy, Reports weakness Eyes: Reports blurry vision, Denies blind spots, Denies bulging eyes, Denies change in vision, Denies double vision, Denies discharge, Denies dry eyes, Denies floaters, Denies irritation, Denies itchy eyes, Denies loss of vision, Denies pain, Denies requires corrective lenses, Denies sensitivity to light, Denies other Ears, Nose, Mouth, and Throat: Denies abnormal hearing, Denies bleeding gums, Denies bad breath, Denies change in voice, Denies dental pain, Denies difficulty swallowing, Denies dizziness, Denies dry mouth, Denies ear discharge , Denies ear pain, Denies facial pain, Denies headache(s), Denies hearing loss, Denies hoarseness, Denies lip swelling, Denies nosebleed, Denies mouth lesions, Denies mouth pain, Denies nasal congestion, Denies nasal discharge, Denies nasal obstruction, Denies nasal trauma, Denies neck lump, Denies neck pain, Denies nose pain, Denies pain with swallowing, Denies poor balance, Denies post nasal drip, Denies ringing in the ears, Denies sinus pain, Denies sinus pressure , Denies sore throat, Denies throat swelling, Denies tongue swelling, Denies other Cardiovascular: Reports shortness of breath, Denies chest pain, Denies chest pain at rest, Denies chest pain with activity, Denies excessive sweating, Denies fainting, Denies fast heart rate, Denies foot swelling, Denies generalized swelling, Denies irregular heart rhythm, Denies leg pain with activity, Denies leg sores, Denies leg swelling, Denies lightheadedness, Denies radiating jaw, neck or arm pain, Denies rapid, pounding, or irregular heartbeat , Denies shortness of breath with activity, Denies shortness of breath when lying down, Denies shortness of breath causing sudden awakening, Denies slow heart rate, Denies other Respiratory: Denies change in phlegm color, Denies chest congestion, Denies cough, Denies coughing up blood, Denies excessive phlegm production, Denies pain on inspiration, Denies pain with cough, Denies shortness of breath, Denies shortness of breath with activity, Denies snoring, Denies stridor, Denies wheezing, Denies other Gastrointestinal: Denies abdominal pain, Denies belching, Denies black, tarry stools, Denies bloating, Denies bright, red blood in stools, Denies change in bowel habits, Denies constant urge to pass stool, Denies change in stools, Denies coffee ground vomit, Denies constipation, Denies cramping, Denies difficulty swallowing, Denies excessive passing of gas, Denies feeling full early, Denies heartburn, Denies incontinent of stools, Denies loose stools, Denies nausea, Denies pain with swallowing, Denies vomiting, Denies vomiting blood, Denies other Musculoskeletal: Denies abnormal walking, Denies back pain, Denies body aches, Denies decreased muscle mass, Denies deformity, Denies joint pain, Denies joint swelling, Denies limited joint movement, Denies loss of height, Denies muscle cramps, Denies muscle weakness, Denies neck pain, Denies numbness, Denies radiating pain into limb, Denies stiffness, Denies tingling, Denies other Skin/Breast: Denies acne, Denies bleeding lesions, Denies boil, Denies breast swelling, Denies breast skin changes, Denies breast pain, Denies breast lump, Denies change in breast shape, Denies change in hair, Denies change in skin color, Denies changing lesions, Denies dry skin, Denies excessive hair growth, Denies hair loss, Denies itching, Denies lesions, Denies nail changes, Denies new lesions, Denies nipple discharge, Denies non-healing lesions, Denies redness , Denies sensitivity to light, Denies rash, Denies skin pain, Denies skin ulcer , Denies sores, Denies stretch chavez, Denies unusual bruising, Denies wounds, Denies yellowing of the skin, Denies other Neurologic: Denies abnormal hearing, Denies abnormal movements, Denies abnormal speech, Denies abnormal walking, Denies behavioral changes, Denies burning sensations, Denies confusion, Denies dizziness, Denies fainting, Denies frequent falls, Denies headache(s), Denies lack of coordination, Denies localized weakness, Denies loss of vision, Denies memory loss, Denies numbness, Denies other visual disturbances, Denies radiating pain, Denies restless legs, Denies convulsions, Denies seizure-like activity, Denies sensory deficit, Denies tingling, Denies tingling/numbness/burning sensations, Denies tremor(s), Denies unsteadiness, Denies weakness, Denies other Psychiatric: Denies abnormal sleep pattern, Denies anxiety, Denies behavioral changes, Denies change in appetite, Denies change in sex drive, Denies confusion , Denies depression, Denies difficulty concentrating, Denies hearing things others do not hear, Denies hopelessness, Denies irritability, Denies lack of enjoyment, Denies memory loss, Denies mood swings, Denies panic attacks, Denies paranoia, Denies seeing things others do not see, Denies sensing things others do not sense, Denies tactile hallucinations, Denies thoughts of hurting/killing others, Denies thoughts of hurting/killing yourself, Denies other Endocrine: Reports increased urination Hematologic/Lymphatic: Denies easy bleeding, Denies easy bruising, Denies enlarged lymph nodes, Denies other Allergic/Immunologic: Denies GI upset with certain foods, Denies hives, Denies itchy eyes, Denies lip swelling, Denies seasonal runny nose, Denies throat swelling, Denies tongue swelling, Denies wheezing, Denies other PMFSH - History History Provided By: Patient - Medical History Medical History: Medical History (Last Updated 10/07/17 @ 13:31 by Nain Chiu MD) Abdominal hernia Cardiomyopathy Chronic kidney disease Diabetes Heart attack - Tobacco History Second Hand Smoke Exposure: Yes Tobacco Use In Past 30 Days: No Smoking Status: Former smoker Tobacco Type: Cigarettes - Alcohol History How Often Do You Have a Drink Containing Alcohol: Never - Substance Use History Substance History: Active Abuse - Substance Use Type Crack/Cocaine Status: Active Route Used: Inhalation Reason for Use: Calm Down, Feels Good, Get High, Stay Awake - Travel History Recent Travel in the [place] Within the Last 8 Weeks: No Recent Travel Out of the Country Within the Last 8 Weeks: No - Immunization History Tetanus Immunization: >5 Years Hx Influenza Vaccine This Season: No Medications and Allergies Active Medications: Active Medications Acetaminophen (Tylenol) 650 mg PO Q4H PRN PRN Reason: Temp > 100.4 Al Hydroxide/Mg Hydroxide (Milk Of Magnesia Liq) 30 ml PO Q12H PRN PRN Reason: Mild Constipation Bisacodyl (Dulcolax Supp) 10 mg RECTAL DAILY PRN PRN Reason: SEVERE CONSITIPATION Dextrose (D50w Vial) 50 ml IV.PUSH UNSCH PRN PRN Reason: PER HYPOGLYCEMIA PROTOCOL Glucagon (Glucagon Inj) 1 mg OTHER PRN PRN PRN Reason: for Hypoglycemia Protocol Insulin Human Regular (Novolin R Supplemental Scale) 0 units SQ ACHS AND 3AM CARMEN; Protocol Last Admin: 10/07/17 08:03 Dose: 9 units Lactulose (Lactulose Liq) 30 ml PO DAILY PRN PRN Reason: SEVERE CONSITIPATION Ondansetron HCl (Zofran Inj) 4 mg IV.PUSH Q6H PRN PRN Reason: NAUSEA OR VOMITING Senna/Docusate Sodium (Rula-Colace) 1 tab PO BID CARMEN Last Admin: 10/07/17 12:57 Dose: Not Given Sennosides (Senokot) 17.2 mg PO Q12H PRN PRN Reason: Moderate Constipation Sodium Chloride (Ns Flush) 2 ml IV.FLUSH PRN PRN PRN Reason: FLUSH AFTER USING IV ACCESS Temazepam (Restoril) 15 mg PO HS PRN PRN Reason: INSOMNIA Allergies Allergy/AdvReac Type Severity Reaction Status Date / Time No Known Allergies Allergy Unverified 10/07/17 07:37 Home Medications Medication Instructions Recorded Confirmed Type No Known Home Medications 10/07/17 10/07/17 History Exam Vital signs: Vital Signs 10/06/17 20:48 10/06/17 20:52 10/07/17 02:53 Temperature 98.2 F Pulse Rate 52 L 82 77 Respiratory Rate 15 20 20 Blood Pressure 141/81 H 129/72 123/90 Pulse Oximetry 98 10/07/17 07:48 10/07/17 08:00 10/07/17 13:06 Temperature Pulse Rate 76 60 Respiratory Rate 12 20 22 Blood Pressure 132/99 H 133/98 H Pulse Oximetry 94 L 99 Intake & Output 10/06/17 10/07/17 10/07/17 18:59 06:59 18:59 Weight 65.771 kg Narrative: Patient is awake alert oriented 3 blood pressure is 133/98 heart rate of 76 sinus Anicteric sclerae pupils equally reactive to light, dry oral mucosa Neck supple no JVD no brui No rales no wheezes Regular rhythm soft to 4/6 systolic murmur left sternal border Abdomen soft nontender good bowel sounds Extremities no edema good peripheral pulses Neurologic exam nonfocal Results - Labs CBC & Chem 7: 10/06/17 23:30 10/07/17 00:45 Labs: Laboratory Results - last 24 hr 10/06/17 10/06/17 10/07/17 23:25 23:30 00:15 WBC 8.1 RBC 6.55 H Hgb 17.1 H Hct 53.1 H MCV 81.0 MCH 26.2 L MCHC 32.3 RDW 13.3 Plt Count 144 L MPV 11.1 H Neut % (Auto) 70.3 H Lymph % (Auto) 22.5 [place] % (Auto) 5.1 Eos % (Auto) 1.8 Baso % (Auto) 0.3 Neut # (Auto) 5.7 Lymph # (Auto) 1.8 [place] # (Auto) 0.4 Eos # (Auto) 0.2 Baso # (Auto) 0.0 WBC Differential . Differential Comment Auto diff final Sodium Potassium Chloride Carbon Dioxide Anion Gap BUN Creatinine Estimated GFR POC Glucose Greater than 600 H* Random Glucose Calcium Magnesium Total Bilirubin AST ALT Alkaline Phosphatase Total Creatine Kinase Troponin I B-Natriuretic Peptide Total Protein Albumin Beta-Hydroxybutyric Acd TSH Urine Color Straw Urine Clarity Clear Urine pH 6.0 Ur Specific [place] 1.027 Urine Protein 30 H Urine Glucose (UA) 500 or greater Urine Ketones Trace Urine Occult Blood Small H Urine Nitrate Negative Urine Bilirubin Negative Urine Urobilinogen Less than 2 Ur Leukocyte Esterase Negative Urine WBC 1 Urine Mucus Few H Micro UA Comment Culture not ind Urine Culture Comments Culture not ind Urine Opiates Screen Ur Barbiturates Screen Ur Amphetamines Screen U Benzodiazepines Scrn Urine Cocaine Screen U Cannabinoids Screen 10/07/17 10/07/17 10/07/17 00:15 00:45 00:45 WBC RBC Hgb Hct MCV MCH MCHC RDW Plt Count MPV Neut % (Auto) Lymph % (Auto) [place] % (Auto) Eos % (Auto) Baso % (Auto) Neut # (Auto) Lymph # (Auto) [place] # (Auto) Eos # (Auto) Baso # (Auto) WBC Differential Differential Comment Sodium 132 L Potassium 3.7 Chloride 92 L Carbon Dioxide 30.0 Anion Gap 10 BUN 23 H Creatinine 1.68 H Estimated GFR 52 L POC Glucose Random Glucose 644 H* Calcium 9.5 Magnesium 2.5 Total Bilirubin 1.0 AST 42 H ALT 87 H Alkaline Phosphatase 100 Total Creatine Kinase 294 Troponin I Less than 0.02 L B-Natriuretic Peptide 582 H Total Protein 8.2 Albumin 4.2 Beta-Hydroxybutyric Acd 0.57 H TSH 0.638 Urine Color Urine Clarity Urine pH Ur Specific [place] Urine Protein Urine Glucose (UA) Urine Ketones Urine Occult Blood Urine Nitrate Urine Bilirubin Urine Urobilinogen Ur Leukocyte Esterase Urine WBC Urine Mucus Micro UA Comment Urine Culture Comments Urine Opiates Screen Neg Ur Barbiturates Screen Neg Ur Amphetamines Screen Neg U Benzodiazepines Scrn Neg Urine Cocaine Screen Pos U Cannabinoids Screen Neg 10/07/17 10/07/17 10/07/17 02:34 03:54 07:52 WBC RBC Hgb Hct MCV MCH MCHC RDW Plt Count MPV Neut % (Auto) Lymph % (Auto) [place] % (Auto) Eos % (Auto) Baso % (Auto) Neut # (Auto) Lymph # (Auto) [place] # (Auto) Eos # (Auto) Baso # (Auto) WBC Differential Differential Comment Sodium Potassium Chloride Carbon Dioxide Anion Gap BUN Creatinine Estimated GFR POC Glucose 514 H* 382 H 423 H Random Glucose Calcium Magnesium Total Bilirubin AST ALT Alkaline Phosphatase Total Creatine Kinase Troponin I B-Natriuretic Peptide Total Protein Albumin Beta-Hydroxybutyric Acd TSH Urine Color Urine Clarity Urine pH Ur Specific [place] Urine Protein Urine Glucose (UA) Urine Ketones Urine Occult Blood Urine Nitrate Urine Bilirubin Urine Urobilinogen Ur Leukocyte Esterase Urine WBC Urine Mucus Micro UA Comment Urine Culture Comments Urine Opiates Screen Ur Barbiturates Screen Ur Amphetamines Screen U Benzodiazepines Scrn Urine Cocaine Screen U Cannabinoids Screen 10/07/17 13:04 WBC RBC Hgb Hct MCV MCH MCHC RDW Plt Count MPV Neut % (Auto) Lymph % (Auto) [place] % (Auto) Eos % (Auto) Baso % (Auto) Neut # (Auto) Lymph # (Auto) [place] # (Auto) Eos # (Auto) Baso # (Auto) WBC Differential Differential Comment Sodium Potassium Chloride Carbon Dioxide Anion Gap BUN Creatinine Estimated GFR POC Glucose 488 H* Random Glucose Calcium Magnesium Total Bilirubin AST ALT Alkaline Phosphatase Total Creatine Kinase Troponin I B-Natriuretic Peptide Total Protein Albumin Beta-Hydroxybutyric Acd TSH Urine Color Urine Clarity Urine pH Ur Specific [place] Urine Protein Urine Glucose (UA) Urine Ketones Urine Occult Blood Urine Nitrate Urine Bilirubin Urine Urobilinogen Ur Leukocyte Esterase Urine WBC Urine Mucus Micro UA Comment Urine Culture Comments Urine Opiates Screen Ur Barbiturates Screen Ur Amphetamines Screen U Benzodiazepines Scrn Urine Cocaine Screen U Cannabinoids Screen - Imaging Impressions Chest X-Ray 10/06/17 23:32 CONCLUSION: 1. Interval resolution of right lower lobe airspace disease. 2. No acute abnormality. Caprini VTE Risk Assessment Caprini VTE Risk Assessment: Moderate/High Risk (score >= 2) Caprini Risk Assessment Model: Point Value = 1 Point Value = 2 Point Value = 3 Point Value = 5 Age 41-60 Minor surgery BMI > 25 kg/m2 Swollen legs Varicose veins or History of unexplained or recurrent spontaneous Oral contraceptives or hormone replacement Sepsis (< 1 month) Serious lung disease, including pneumonia (< 1 month) Abnormal pulmonary function Acute myocardial infarction Congestive heart failure (< 1 month) History of inflammatory bowel disease Medical patient at bed rest Age 61-74 Arthroscopic surgery Major open surgery (> 45 min) Laparoscopic surgery (> 45 min) Malignancy Confined to bed (> 72 hours) Immobilizing plaster cast Central venous access Age >= 75 History of VTE Family history of VTE Factor V Leiden Prothrombin [id number] Lupus anticoagulant Anticardiolipin antibodies Elevated serum homocysteine Heparin-induced thrombocytopenia Other congenital or acquired thrombophilia Stroke (< 1 month) Elective arthroplasty Hip, pelvis, or leg fracture Acute spinal cord injury (< 1 month) Prophylaxis Regimen: Total Risk Factor Score Risk Level Prophylaxis Regimen 0-1 Low Early ambulation 2 Moderate Order ONE of the following: *Sequential Compression Device (SCD) *Heparin 5000 units SQ BID 3-4 Higher Order ONE of the following medications: *Heparin 5000 units SQ TID *Enoxaparin/Lovenox 40 mg SQ daily (WT < 150 kg, CrCl > 30 mL/min) *Enoxaparin/Lovenox 30 mg SQ daily (WT < 150 kg, CrCl > 10-29 mL/min) *Enoxaparin/Lovenox 30 mg SQ BID (WT < 150 kg, CrCl > 30 mL/min) AND/OR *Sequential Compression Device (SCD) 5 or more Highest Order ONE of the following medications: *Heparin 5000 units SQ TID (Preferred with Epidurals) *Enoxaparin/Lovenox 40 mg SQ daily (WT < 150 kg, CrCl > 30 mL/min) *Enoxaparin/Lovenox 30 mg SQ daily (WT < 150 kg, CrCl > 10-29 mL/min) *Enoxaparin/Lovenox 30 mg SQ BID (WT < 150 kg, CrCl > 30 mL/min) AND *Sequential Compression Device (SCD) Assessment and Plan - Plan 52-year-old male known history of diabetes type 2 nonischemic cardiomyopathy with known ejection fraction of 25% chronic kidney insufficiency actively using cocaine presenting with neck generalized weakness hyperglycemia Diabetes type 2 uncontrolled not in any form of DKA or home Start patient on gentle hydration 40 cc/h Start patient on Levemir 10 units twice daily Check hemoglobin A1c Continue on sliding scale subcu insulin 3 times daily and at bedtime Adjust insulin regimen per reading ADA diet Reconsult dietitian for reinforcement Nonischemic cardiomyopathy with ejection fraction of 25% not in clinical failure Hypertension uncontrolled Continue meds of Aldactone 50 mg twice a day Coreg 3.125 mg twice a day Continue Lasix dose down to at 20 mg daily Aspirin 81 mg daily If renal functions improve with increase dosages At one point heart transplant was contemplated with referral to tertiary center however patient is actively using cocaine. Not ideal candidate for now Chronic kidney insufficiency Monitor BMP on restarting above meds. Cocaine substance abuse Patient counseled extensively Heparin subcu for DVT prophylaxis. consult case management to assist with discharge home meds get into medical assistance program. Patient states that she went home with scripts but was unable to feel this. Discussed with him extensively lifestyle changes. Discussed Condition With: Patient
[2017-10-07] MEDS: amLODIPine 5 MG Tablet PO SCH (15:45)
[2017-10-07] MEDS: Furosemide 20 MG Tablet PO SCH (16:21)
[2017-10-07] MEDS: Spironolactone 50 MG Tablet PO SCH (18:04)
[2017-10-07] MEDS: Heparin - SQ 10,000 UNITS/ML Vial SQ SCH (20:42)
[2017-10-07] MEDS: Insulin Detemir Inj 1,000 UNIT/10 ML Vial SQ SCH (20:43)
[2017-10-08] MEDS: Insulin NovoLIN Regular Correctional Sugar Inj SQ SCH ×5 (04:25→21:26)
[2017-10-08] MEDS: Heparin - SQ 10,000 UNITS/ML Vial SQ SCH ×2 (08:56→21:09)
[2017-10-08] MEDS: Insulin Detemir Inj 1,000 UNIT/10 ML Vial SQ SCH (08:58)
[2017-10-08 11:28] LABS: Baso % (Auto) 0.3 % (0.0-2.0); Eos # (Auto) 0.1 th/mm3 (0.0-0.4); Eos % (Auto) 1.7 % (0.0-4.0); Hematocrit 50.1 % (39.0-51.0); Hemoglobin 16.2 gm/dL (13.0-17.0); Lymph # (Auto) 1.9 th/mm3 (1.0-4.8); Lymph % (Auto) 26.5 % (9.0-44.0); Mean Corpuscular HGB Conc 32.4 % (32.0-36.0); Mean Corpuscular Hemoglobin 25.7 pg (27.0-34.0); Mean Corpuscular Volume 79.3 fL (80.0-100.0); Mean Platelet Volume 11.4 fL (7.0-11.0); Mono # (Auto) 0.3 th/mm3 (0.0-0.9); Mono % (Auto) 4.5 % (0.0-8.0); Neut # (Auto) 4.7 th/mm3 (1.8-7.7); Platelet Count 163 th/mm3 (150-450); Red Blood Count 6.31 mil/mm3 (4.50-5.90); Red Cell Distribution Width 12.8 % (11.6-17.2)
[2017-10-08 12:01] LABS: Calcium 9.5 mg/dL (8.5-10.1); Carbon Dioxide 26.5 meq/L (21.0-32.0); Potassium 3.6 meq/L (3.5-5.1)
[2017-10-08] MEDS: Senna/Docusate Sodium 8.6/50 MG Tablet PO SCH ×2 (12:31→21:10)
[2017-10-08] MEDS: amLODIPine 5 MG Tablet PO SCH (12:37)
[2017-10-08] MEDS: Furosemide 20 MG Tablet PO SCH (12:37)
[2017-10-08] MEDS: Spironolactone 50 MG Tablet PO SCH ×2 (12:40→20:29)
--- NOTE | 2017-10-08 15:03 | P.PN ---
Subjective Interval history: good po - states not enough" no nause aor vomiting no pain Physical Exam Vital signs: Vital Signs 10/07/17 15:45 10/07/17 18:00 10/07/17 20:00 Temperature 98.4 F 98.9 F Pulse Rate 81 79 80 Respiratory Rate 19 16 17 Blood Pressure 118/71 174/106 H 119/75 Pulse Oximetry 97 96 98 10/08/17 00:00 10/08/17 04:00 10/08/17 08:00 Temperature 97.6 F 98.0 F 98.2 F Pulse Rate 77 80 75 Respiratory Rate 17 17 16 Blood Pressure 116/95 H 130/88 100/79 Pulse Oximetry 96 95 97 10/08/17 09:00 10/08/17 12:34 Temperature 98 F Pulse Rate 75 75 Respiratory Rate 20 Blood Pressure 121/83 Pulse Oximetry 95 Intake & Output 10/07/17 10/08/17 10/08/17 18:59 06:59 18:59 Weight 65.771 kg 65.9 kg Narrative: awake and alert, no acute distress anicteric moist oral mucosa no rales regular rhythm abdomen soft extremiteis no edema neuro exam- non focal Results - Labs CBC & Chem 7: 10/08/17 09:47 10/08/17 09:47 Laboratory Results - last 24 hr 10/07/17 10/07/17 10/08/17 17:54 20:27 03:01 WBC RBC Hgb Hct MCV MCH MCHC RDW Plt Count MPV Neut % (Auto) Lymph % (Auto) [place] % (Auto) Eos % (Auto) Baso % (Auto) Neut # (Auto) Lymph # (Auto) [place] # (Auto) Eos # (Auto) Baso # (Auto) WBC Differential Differential Comment Sodium Potassium Chloride Carbon Dioxide Anion Gap BUN Creatinine Estimated GFR POC Glucose 449 H 419 H 104 Random Glucose Calcium 10/08/17 10/08/17 10/08/17 07:53 09:47 09:47 WBC 7.0 RBC 6.31 H Hgb 16.2 Hct 50.1 MCV 79.3 L MCH 25.7 L MCHC 32.4 RDW 12.8 Plt Count 163 MPV 11.4 H Neut % (Auto) 67.0 Lymph % (Auto) 26.5 [place] % (Auto) 4.5 Eos % (Auto) 1.7 Baso % (Auto) 0.3 Neut # (Auto) 4.7 Lymph # (Auto) 1.9 [place] # (Auto) 0.3 Eos # (Auto) 0.1 Baso # (Auto) 0.0 WBC Differential . Differential Comment Auto diff final Sodium 134 L Potassium 3.6 Chloride 95 L Carbon Dioxide 26.5 Anion Gap 13 BUN 22 H Creatinine 1.28 Estimated GFR 72 L POC Glucose 302 H Random Glucose 319 H D Calcium 9.5 10/08/17 12:25 WBC RBC Hgb Hct MCV MCH MCHC RDW Plt Count MPV Neut % (Auto) Lymph % (Auto) [place] % (Auto) Eos % (Auto) Baso % (Auto) Neut # (Auto) Lymph # (Auto) [place] # (Auto) Eos # (Auto) Baso # (Auto) WBC Differential Differential Comment Sodium Potassium Chloride Carbon Dioxide Anion Gap BUN Creatinine Estimated GFR POC Glucose 223 H Random Glucose Calcium Assessment and Plan - Plan 52-year-old male known history of diabetes type 2 nonischemic cardiomyopathy with known ejection fraction of 25% chronic kidney insufficiency actively using cocaine presenting with neck generalized weakness hyperglycemia Diabetes type 2 uncontrolled not in any form of DKA or home A1C 11 change to 70/30 15 unisi bud- this is cheaper Continue on sliding scale subcu insulin 3 times daily and at bedtime Adjust insulin regimen per reading ADA diet reinforced diabetes teaching Nonischemic cardiomyopathy with ejection fraction of 25% not in clinical failure Hypertension uncontrolled Continue meds of Aldactone 50 mg twice a day Coreg 3.125 mg twice a day Continue Lasix dose down to at 20 mg daily Aspirin 81 mg daily If renal functions improve with increase dosages At one point heart transplant was contemplated with referral to tertiary center however patient is actively using cocaine. Not ideal candidate for now Chronic kidney insufficiency Monitor BMP Cocaine substance abuse Patient counseled extensively Heparin subcu for DVT prophylaxis. consult case management to assist with discharge home meds get into medical assistance program. Patient states that she went home with scripts but was unable to filll this. Discussed with him extensively lifestyle changes.
[2017-10-08 16:10] LABS: Hemoglobin A1c 14.9 % (4.3-6.0)
--- NOTE | 2017-10-08 19:03 | P.DIET ---
Nutritional Evaluation Type of nutrition evaluation: follow-up Nutrition screening: MDC (Diabetes Education) Assessment Assessment: Pt seen in his room for diet education. Pt explained that he is homeless. We discussed how he gets his food during the day and learned how to carb count based off of this information. I provided pt w/ handouts regarding carb counting , his 1800ADA meal pattern, treatment of hypoglycemia, and symptoms of hypo- and hyperglycemia. Pt was able to repeat the information back to me accurately. We went through his typical day and tried to carb count and "plan" his meals. Pt was honest and stated that when he finds food he eats, even if it's "filled w / carbs". Pt would benefit from a glucometer and he stated he knew how to use one. Pt acceptable to Trena PLASCENCIA since he stated he was still hungry. Pt also states he sometimes has money and is able to buy food. Also acceptable to Glucmariah Stevens coupons stating his family would buy them for him. Pt will likely need diet education follow ups. Consult RD if needed.
[2017-10-09] MEDS: Insulin NovoLIN Regular Correctional Sugar Inj SQ SCH ×2 (03:41→09:18)
[2017-10-09] MEDS: Furosemide 20 MG Tablet PO SCH (09:16)
[2017-10-09] MEDS: Senna/Docusate Sodium 8.6/50 MG Tablet PO SCH (09:17)
[2017-10-09] MEDS: amLODIPine 5 MG Tablet PO SCH (09:17)
[2017-10-09] MEDS: Heparin - SQ 10,000 UNITS/ML Vial SQ SCH (09:17)
[2017-10-09] MEDS: Spironolactone 50 MG Tablet PO SCH (09:22)
[2017-10-09 10:03] LABS: Calcium 8.6 mg/dL (8.5-10.1); Carbon Dioxide 29.6 meq/L (21.0-32.0)
[2017-10-09 10:04] LABS: Potassium 4.2 meq/L (3.5-5.1)
--- NOTE | 2017-10-09 11:43 | P.PN ---
Subjective Interval history: no [place]- good po motivated with lifestyle changes Physical Exam Vital signs: Vital Signs 10/08/17 11:44 10/08/17 12:34 10/08/17 16:00 Temperature 98 F 97.7 F Pulse Rate 67 75 79 Respiratory Rate 20 18 Blood Pressure 121/83 115/78 Pulse Oximetry 95 99 10/08/17 20:00 10/09/17 00:00 10/09/17 02:13 Temperature 98.5 F 97.9 F Pulse Rate 82 63 82 Respiratory Rate 17 18 Blood Pressure 95/60 L 98/56 L Pulse Oximetry 95 100 10/09/17 04:00 10/09/17 08:00 Temperature 98.2 F 97.8 F Pulse Rate 78 73 Respiratory Rate 16 20 Blood Pressure 136/78 119/79 Pulse Oximetry 97 95 Intake & Output 10/08/17 10/09/17 10/09/17 18:59 06:59 18:59 Intake Total 1500 / 1500 480 / 480 Balance 1500 / 1500 480 / 480 Weight 63.9 kg Intake: Oral 1500 / 1500 480 / 480 Other: # Voids 3 4 Narrative: awake and alert, no acute distress anicteric moist oral mucosa no rales regular rhythm abdomen soft extremiteis no edema neuro exam- non focal Results - Labs CBC & Chem 7: 10/08/17 09:47 10/09/17 08:21 Laboratory Results - last 24 hr 10/08/17 10/08/17 10/08/17 09:47 09:47 12:25 Sodium 134 L Potassium 3.6 Chloride 95 L Carbon Dioxide 26.5 Anion Gap 13 BUN 22 H Creatinine 1.28 Estimated GFR 72 L POC Glucose 223 H Random Glucose 319 H D Hemoglobin A1c 14.9 H Calcium 9.5 10/08/17 10/08/17 10/09/17 16:41 21:06 03:35 Sodium Potassium Chloride Carbon Dioxide Anion Gap BUN Creatinine Estimated GFR POC Glucose 430 H 308 H 186 H Random Glucose Hemoglobin A1c Calcium 10/09/17 10/09/17 07:58 08:21 Sodium 134 L Potassium 4.2 Chloride 95 L Carbon Dioxide 29.6 Anion Gap 9 BUN 28 H Creatinine 1.34 H Estimated GFR 68 L POC Glucose 382 H Random Glucose 280 H Hemoglobin A1c Calcium 8.6 D Assessment and Plan - Plan 52-year-old male known history of diabetes type 2 nonischemic cardiomyopathy with known ejection fraction of 25% chronic kidney insufficiency actively using cocaine presenting with neck generalized weakness hyperglycemia Diabetes type 2 uncontrolled not in any form of DKA or home A1C 11 change to 70/30 15 up to 18 units Continue on sliding scale subcu insulin 3 times daily and at bedtime Adjust insulin regimen per reading ADA diet reinforced diabetes teaching apprciate deititian counselling Nonischemic cardiomyopathy with ejection fraction of 25% not in clinical failure Hypertension uncontrolled Continue meds of Aldactone 50 mg twice a day Coreg 3.125 mg twice a day Continue Lasix dose down to at 20 mg daily Aspirin 81 mg daily If renal functions improve with increase dosages At one point heart transplant was contemplated with referral to tertiary center however patient is actively using cocaine. Not ideal candidate for now Chronic kidney insufficiency Monitor BMP Cocaine substance abuse Patient counseled extensively Heparin subcu for DVT prophylaxis. consult case management to assist with discharge home meds get into medical assistance program. Patient states that she went home with scripts but was unable to filll this. Discussed with him extensively lifestyle changes. Dc today- OP ff up - refer to [facility] CM- assist with DC meds
== END 2017-10-09 13:02 | disposition home or self-care (01) ==
LOC: NEPC 19:57 → NEDA 10-07 03:12 → N04 10-07 16:03
PROVIDERS: ADMIT Internal Medicine; ATTEND Internal Medicine

== ENCOUNTER 2017-11-29 08:23 | Inpatient (IN) ==
[2017-11-29] MEDS ORDERED: Sod Chloride 0.9% Inj 1,000 ML IV.SIG SCH ×2 (09:15)
[2017-11-29 09:24] LABS: White Blood Count 4.6 th/mm3 (4.0-11.0)
[2017-11-29 09:25] LABS: Baso % (Auto) 0.7 % (0.0-2.0); Eos # (Auto) 0.1 th/mm3 (0.0-0.4); Eos % (Auto) 1.3 % (0.0-4.0); Hematocrit 34.6 % (39.0-51.0); Hemoglobin 10.3 gm/dL (13.0-17.0); Lymph # (Auto) 0.9 th/mm3 (1.0-4.8); Lymph % (Auto) 20.6 % (9.0-44.0); Mean Corpuscular Hemoglobin 25.8 pg (27.0-34.0); Mean Corpuscular Volume 86.3 fL (80.0-100.0); Mono # (Auto) 0.4 th/mm3 (0.0-0.9); Mono % (Auto) 8.2 % (0.0-8.0); Neut # (Auto) 3.2 th/mm3 (1.8-7.7); Neut % (Auto) 69.2 % (16.0-70.0); Platelet Count 162 th/mm3 (150-450)
[2017-11-29 09:27] LABS: Mean Corpuscular HGB Conc 29.9 % (32.0-36.0)
[2017-11-29 09:46] LABS: Bilirubin,Urine Negative (Negative); Clarity,Urine Clear (Clear); Color,Urine Colorless (Yellw/Straw); Glucose,Urine (UA) 500 or Greater mg/dL (Negative); Leukocyte Esterase,Urine Negative (Negative); Mucus,Urine Few /lpf (Occasional); Nitrite,Urine Negative (Negative); Specific Gravity,Urine 1.023 (1.002-1.035)
[2017-11-29 09:53] LABS: Alanine Aminotransferase 203 U/L (12-78); Albumin 3.4 g/dL (3.4-5.0); Alkaline Phosphatase 78 U/L (45-117); Anion Gap 9 meq/L (5-15); Aspartate Aminotransferase 83 U/L (15-37); Blood Urea Nitrogen 26 mg/dL (7-18); Calcium 8.2 mg/dL (8.5-10.1); Carbon Dioxide 25.9 meq/L (21.0-32.0); Chloride 88 meq/L (98-107); Glomerular Filtration Rate 51 mL/min (>89); Lipase 218 U/L (73-393); Total Protein 6.4 g/dL (6.4-8.2)
[2017-11-29 10:07] LABS: Sodium 123 meq/L (136-145)
[2017-11-29 10:08] LABS: Glucose,Random 1015 mg/dL (74-106)
[2017-11-29] MEDS ORDERED: Insulin Regular (For Infusion) 100 UNIT in Sodium Chlor 0.9% Inj 99 ML IV.CONT PRN (11:06)
[2017-11-29] MEDS ORDERED: Dextrose 50% in Water 50 ML Vial IV.PUSH PRN ×2 (11:06→16:38)
--- NOTE | 2017-11-29 12:08 | ED ---
HPI General Chief complaint: Pain: Chronic Stated complaint: Pain entire body Time Seen by Provider: 11/29/17 08:37 History of Present Illness HPI narrative: Patient 52-year-old male presents emergency department with pain all over his body, he states that typically he has some numbness and tingling of his lower extremities and this today. He has had multiple presentations emergency department recently for elevated blood sugar, was actually seen yesterday in [place] for elevated blood sugar and was discharged home, he states is also having some blurred vision and a lot of urination. He is homeless and therefore has not been able to have his insulin and can afford it. He still Smokes cocaine. No chest pain no shortness of breath no abdominal pain no nausea no vomiting. Symptoms moderate, for the past few days, context and associated signs symptoms as above. Related Data Home Medications Medication Instructions Recorded Confirmed warfarin [Coumadin] 2 mg PO DAILY 11/08/17 11/08/17 Previous Rx's Medication Instructions Recorded aspirin 81 mg PO DAILY #30 tab 10/09/17 furosemide 20 mg PO DAILY #30 tab 10/09/17 insulin NPH and regular human 18 units SUB-Q BID@0800,1700 #1 ml 10/09/17 [Novolin 70/30 U-100 Insulin] Allergies Allergy/AdvReac Type Severity Reaction Status Date / Time No Known Allergies Allergy Verified 11/28/17 09:05 Review of Systems ROS: all other systems reviewed are negative PMFSH Social History Social History Substance History: Active Abuse Second Hand Smoke Exposure: No Smoking Status: Former smoker Tobacco Type: Cigarettes How Often Do You Have a Drink Containing Alcohol: 2 to 4 times a month Recent Travel in [facility] within the Last 8 Weeks: No Recent Out of Country Travel within the Last 8 Weeks: No Substance Abuse Detail Crack/Cocaine: Substance Use Status: Active Route Used Substance Abuse: Inhalation Last Used: 11-28-17, weekly user Reason for Use: Calm Down Immunization History Tetanus Immunization: Unsure Hx Influenza Vaccine This Season: No Exam Narrative Exam Narrative: GENERAL: Well-developed well-nourished no obvious distress, thin SKIN: Focused skin assessment warm/dry. HEAD: Atraumatic. Normocephalic. EYES: Pupils equal and round. No scleral icterus. No injection or drainage. ENT: No nasal bleeding or discharge. Mucous membranes pink and moist. TMs clear bilaterally NECK: Trachea midline. No JVD. CARDIOVASCULAR: Regular rate and rhythm. No murmur appreciated. RESPIRATORY: No accessory muscle use. Clear breath sounds No increased work of breathing. Speaks in full sentences. Breath sounds equal bilaterally. GASTROINTESTINAL: Abdomen soft, non-tender, nondistended. Hepatic and splenic margins not palpable. MUSCULOSKELETAL: No obvious deformities. No clubbing. No cyanosis. No edema. NEUROLOGICAL: Awake and alert. No obvious cranial nerve deficits. Motor grossly within normal limits. Normal speech. PSYCHIATRIC: Appropriate mood and affect; insight and judgment normal. Course Initial Documented Vital Signs Temperature 97.9 F 11/29/17 08:31 Pulse Rate 75 11/29/17 08:31 Respiratory Rate 16 11/29/17 08:31 Blood Pressure 125/77 11/29/17 08:31 Pulse Oximetry 96 11/29/17 08:31 Last Documented Vital Signs Temperature 97.9 F 11/29/17 08:31 Pulse Rate 81 11/29/17 11:40 Respiratory Rate 18 11/29/17 11:40 Blood Pressure 134/87 11/29/17 11:40 Pulse Oximetry 98 11/29/17 11:40 Medical Decision Making MDM Narrative Medical decision making narrative: Patient room to the emergency department, have found to have a sugar in excess of 1000, he does have hyponatremia with a sodium of 123 which corrects for hyperglycemia. Creatinine 1.7 at or near his baseline. No evidence of DKA. Given his profound hyperglycemia he was started on insulin drip. Liter normal saline given. Otherwise hemodynamically stable. Discussed with Dr. Yeung for admission is agreeable. Medical Screen Exam Complete: Yes Emergency Medical Condition: Yes Lab Data Result diagrams: 11/29/17 09:11 11/29/17 09:11 Lab Results 11/29/17 11/29/17 11/29/17 Range/Units 09:11 09:11 09:30 WBC 4.6 (4.0-11.0) th/mm3 RBC 4.00 L (4.50-5.90) mil/mm3 Hgb 10.3 L (13.0-17.0) gm/dL Hct 34.6 L (39.0-51.0) % MCV 86.3 D (80.0-100.0) fL MCH 25.8 L (27.0-34.0) pg MCHC 29.9 L (32.0-36.0) % RDW 15.0 (11.6-17.2) % Plt Count 162 (150-450) th/mm3 MPV 10.0 (7.0-11.0) fL Neut % (Auto) 69.2 (16.0-70.0) % Lymph % (Auto) 20.6 (9.0-44.0) % [place] % (Auto) 8.2 H (0.0-8.0) % Eos % (Auto) 1.3 (0.0-4.0) % Baso % (Auto) 0.7 (0.0-2.0) % Neut # (Auto) 3.2 (1.8-7.7) th/mm3 Lymph # (Auto) 0.9 L (1.0-4.8) th/mm3 [place] # (Auto) 0.4 (0.0-0.9) th/mm3 Eos # (Auto) 0.1 (0.0-0.4) th/mm3 Baso # (Auto) 0.0 (0.0-0.2) th/mm3 WBC Differential . Differential Comment Auto diff final Sodium 123 L* D (136-145) meq/L Potassium 5.0 (3.5-5.1) meq/L Chloride 88 L D (98-107) meq/L Carbon Dioxide 25.9 (21.0-32.0) meq/L Anion Gap 9 (5-15) meq/L BUN 26 H (7-18) mg/dL Creatinine 1.71 H (0.60-1.30) mg/dL Estimated GFR 51 L (>89) mL/min Random Glucose 1015 H* D (74-106) mg/dL Calcium 8.2 L (8.5-10.1) mg/dL Total Bilirubin 0.8 (0.2-1.0) mg/dL AST 83 H (15-37) U/L ALT 203 H (12-78) U/L Alkaline Phosphatase 78 (45-117) U/L Total Protein 6.4 (6.4-8.2) g/dL Albumin 3.4 (3.4-5.0) g/dL Lipase 218 (73-393) U/L Urine Color Colorless (Yellw/Straw) Urine Clarity Clear (Clear) Urine pH 6.0 (5.0-8.5) Ur Specific [place] 1.023 (1.002-1.035) Urine Protein Negative (Neg-Trace) mg/dL Urine Glucose (UA) 500 or greater (Negative) mg/dL Urine Ketones Negative (Negative) mg/dL Urine Occult Blood Small H (Negative) Urine Nitrate Negative (Negative) Urine Bilirubin Negative (Negative) Urine Urobilinogen Less than 2 (Less than 2) mg/dL Ur Leukocyte Esterase Negative (Negative) Urine Mucus Few H (Occasional) /lpf Micro UA Comment Culture not ind Ur Microscopic Review Not Reportable Urine Culture Comments Culture not ind Discharge Plan Discharge Disposition Patient Disposition: 30 Still Patient Discharge Details Diagnosis: Acute hyperglycemia, Diabetes, Chronic kidney disease, Weakness, Acute hyponatremia Physicians Team ED Provider: Reynaldo Del Rio Primary Care Provider: Primary Care Radha Gabriel Attending Provider: Greg Yeung Discharge Interventions Interventions: Vital Signs Last Done: 11/29/17 11:40 Status ED Status: Admitted Patient
--- NOTE | 2017-11-29 12:18 | P.HPIM ---
History of Present Illness Primary Care Physician: No Primary Care Physician Chief Complaint: ' my sugar is high'. History of Present Illness: patient is a 52 y/o male, homeless, with history of diabetes mellitus- noncompliant with his insulin regimen and diet, CAD, cardiomyopathy , who presented to ER with elevated blood sugar. he says that he ran out of insulin while ago and he just gets the insulin when he comes to ER. in fact he was seen in ER yesterday and had an elevated blood sugar at the time.he denies any abdominal pain, nausea, vomiting with no report of fever, chest pain or sob.he uses cocaine. Inpatient Certification: I certify that the inpatient services were ordered in accordance with Medicare regulations governing the order. This includes certification that hospital inpatient services are reasonable and necessary and in the case of services not specified as inpatient-only under 42 CFR 419.22(n), that they are appropriately provided as inpatient services in accordance to with the 2-midnight benchmark under 43 CFR 412.3(e) Estimated Total Length of Stay (Days): 2 Plans for Post Hospital Care: Home Review of Systems All other systems reviewed negative except as stated in HPI PMFSH - History History Provided By: Patient - Medical History Medical History: Medical History (Last Reviewed 11/28/17 @ 09:12 by Gabrielle Key RN) Chronic kidney disease (Acute) Cardiomyopathy (Acute) Heart attack (Acute) Abdominal hernia (Acute) Diabetes (Acute) HIV disease - Family History Family History: Family History (Last Updated 11/29/17 @ 12:14 by Greg Yeung MD) Mother Family history of diabetes mellitus - Tobacco History Second Hand Smoke Exposure: No Tobacco Use In Past 30 Days: No Smoking Status: Former smoker Tobacco Type: Cigarettes - Alcohol History How Often Do You Have a Drink Containing Alcohol: 2 to 4 times a month - Substance Use History Substance History: Active Abuse - Substance Use Type Crack/Cocaine Status: Active Route Used: Inhalation Last Used: 11-28-17, weekly user Reason for Use: Calm Down - Travel History Recent Travel in the [place] Within the Last 8 Weeks: No Recent Travel Out of the Country Within the Last 8 Weeks: No - Immunization History Tetanus Immunization: Unsure Hx Influenza Vaccine This Season: No Medications and Allergies Active Medications: Active Medications Aspirin (Aspirin Chew) 81 mg PO DAILY CARMEN Dextrose (D50w Vial) 50 ml IV.PUSH UNSCH PRN PRN Reason: PER HYPOGLYCEMIA PROTOCOL Enoxaparin Sodium (Lovenox Inj) 40 mg SQ DAILY CARMEN Furosemide (Lasix) 20 mg PO DAILY CARMEN Sodium Chloride (Ns Inj) 1,000 mls @ 0 mls/hr IV.SIG BOLUS CARMEN Sodium Chloride (Ns Inj) 1,000 mls @ 0 mls/hr IV.SIG BOLUS CARMEN Insulin Human Regular 100 unit (/ Sodium Chloride) 100 mls @ 0 mls/hr IV.CONT TITRATE PRN; Protocol PRN Reason: See protocol Last Admin: 11/29/17 11:39 Dose: 6 units/hr, 6 mls/hr Allergies Allergy/AdvReac Type Severity Reaction Status Date / Time No Known Allergies Allergy Verified 11/28/17 09:05 Home Medications Medication Instructions Recorded Confirmed Type warfarin [Coumadin] 2 mg PO DAILY 11/08/17 11/08/17 History Exam Vital signs: Vital Signs 11/29/17 08:31 11/29/17 08:34 11/29/17 09:05 Temperature 97.9 F Pulse Rate 75 80 Respiratory Rate 16 18 Blood Pressure 125/77 136/84 Pulse Oximetry 96 97 98 11/29/17 09:08 11/29/17 11:40 Temperature Pulse Rate 81 Respiratory Rate 18 Blood Pressure 134/87 Pulse Oximetry 98 98 Intake & Output 11/28/17 11/29/17 11/29/17 18:59 06:59 18:59 Weight 60 kg - Constitutional no acute distress - Routine HEENT Exam Eye: Present: PERRL - Routine Neck Exam Present: full ROM - Routine Respiratory Exam Present: CTA bilaterally - Routine Cardiovascular Exam Present: RRR - Routine Abdominal Exam Present: soft - Routine Extremities Exam Comments: no pedal edema. - Routine Neurological Exam Present: alert, oriented X3 Results - Labs CBC & Chem 7: 11/29/17 09:11 11/29/17 09:11 Labs: Short CBC 11/29/17 Range/Units 09:11 WBC 4.6 (4.0-11.0) th/mm3 Hgb 10.3 L (13.0-17.0) gm/dL Hct 34.6 L (39.0-51.0) % Plt Count 162 (150-450) th/mm3 BMP 11/29/17 09:11 Sodium 123 L* D Potassium 5.0 Chloride 88 L D Carbon Dioxide 25.9 BUN 26 H Creatinine 1.71 H Calcium 8.2 L Liver Function 11/29/17 Range/Units 09:11 Total Bilirubin 0.8 (0.2-1.0) mg/dL AST 83 H (15-37) U/L ALT 203 H (12-78) U/L Alkaline Phosphatase 78 (45-117) U/L Albumin 3.4 (3.4-5.0) g/dL Urine 11/29/17 Range/Units 09:30 Urine Color Colorless (Yellw/Straw) Urine Clarity Clear (Clear) Urine pH 6.0 (5.0-8.5) Ur Specific [place] 1.023 (1.002-1.035) Urine Protein Negative (Neg-Trace) mg/dL Urine Glucose (UA) 500 or greater (Negative) mg/dL Caprini VTE Risk Assessment Caprini VTE Risk Assessment: Moderate/High Risk (score >= 2) Caprini Risk Assessment Model: Point Value = 1 Point Value = 2 Point Value = 3 Point Value = 5 Age 41-60 Minor surgery BMI > 25 kg/m2 Swollen legs Varicose veins or History of unexplained or recurrent spontaneous Oral contraceptives or hormone replacement Sepsis (< 1 month) Serious lung disease, including pneumonia (< 1 month) Abnormal pulmonary function Acute myocardial infarction Congestive heart failure (< 1 month) History of inflammatory bowel disease Medical patient at bed rest Age 61-74 Arthroscopic surgery Major open surgery (> 45 min) Laparoscopic surgery (> 45 min) Malignancy Confined to bed (> 72 hours) Immobilizing plaster cast Central venous access Age >= 75 History of VTE Family history of VTE Factor V Leiden Prothrombin [id number] Lupus anticoagulant Anticardiolipin antibodies Elevated serum homocysteine Heparin-induced thrombocytopenia Other congenital or acquired thrombophilia Stroke (< 1 month) Elective arthroplasty Hip, pelvis, or leg fracture Acute spinal cord injury (< 1 month) Prophylaxis Regimen: Total Risk Factor Score Risk Level Prophylaxis Regimen 0-1 Low Early ambulation 2 Moderate Order ONE of the following: *Sequential Compression Device (SCD) *Heparin 5000 units SQ BID 3-4 Higher Order ONE of the following medications: *Heparin 5000 units SQ TID *Enoxaparin/Lovenox 40 mg SQ daily (WT < 150 kg, CrCl > 30 mL/min) *Enoxaparin/Lovenox 30 mg SQ daily (WT < 150 kg, CrCl > 10-29 mL/min) *Enoxaparin/Lovenox 30 mg SQ BID (WT < 150 kg, CrCl > 30 mL/min) AND/OR *Sequential Compression Device (SCD) 5 or more Highest Order ONE of the following medications: *Heparin 5000 units SQ TID (Preferred with Epidurals) *Enoxaparin/Lovenox 40 mg SQ daily (WT < 150 kg, CrCl > 30 mL/min) *Enoxaparin/Lovenox 30 mg SQ daily (WT < 150 kg, CrCl > 10-29 mL/min) *Enoxaparin/Lovenox 30 mg SQ BID (WT < 150 kg, CrCl > 30 mL/min) AND *Sequential Compression Device (SCD) Assessment and Plan - Plan A/P - uncontrolled diabetes mellitus due to non-compliance- patient is not in DKA started on insulin drip- will switch him back to subq long-acting insulin within the next 24 hrs- when blood sugar has improved. monitor electrolytes closely while on insulin drip. will be cautious with IV fluid in light of cardiomyopathy. -Hyponatremia- due to hyperglycemia; will monitor. -CAD/ s/p stent placement with cardiomyopathy; resume aspirin, lasix. -CKD- at his baseline- will monitor. -DVT prophylaxis with subq Lovenox -consult case management since the patient is homeless. Discussed Condition With: ER physician and the patient.
[2017-11-29] MEDS: Sodium Chlor 0.9% Inj 500 ML IV.CONT SCH (12:27)
--- NOTE | 2017-11-29 15:09 | ECG ---
Date Performed: 11/29/2017 Time Performed: 11:10:20 PTAGE: 52 years EKG: Sinus rhythm VOLTAGE CRITERIA FOR LVH NONSPECIFIC T-WAVE ABNORMALITY ABNORMAL ECG Compared to PREVIOUS TRACING , T-wave changes somewhat improved, otherwise no significant change. PRE VIOUS TRACIN11/28/2017 09.24.10 DOCTOR: Marshall Howard Interpretating Date/Time 11/29/2017 15:07:30
[2017-11-29 15:35] LABS: Calcium 8.8 mg/dL (8.5-10.1); Carbon Dioxide 27.7 meq/L (21.0-32.0); Potassium 4.6 meq/L (3.5-5.1)
[2017-11-29] MEDS: Insulin NovoLOG Aspart Correctional Sugar Inj SQ SCH ×2 (17:26→20:57)
[2017-11-30] MEDS: Sodium Chlor 0.9% Inj 500 ML IV.CONT SCH (01:29)
[2017-11-30] MEDS ORDERED: Chlorhexidine Gluconate 2% 1 Pack (2 Cloths) TOPICAL PRN (04:00)
[2017-11-30] MEDS: Chlorhexidine Gluconate 2% 1 Pack (2 Cloths) TOPICAL SCH (04:42)
[2017-11-30 07:42] LABS: Anion Gap 9 meq/L (5-15); Blood Urea Nitrogen 18 mg/dL (7-18); Calcium 8.3 mg/dL (8.5-10.1); Carbon Dioxide 29.4 meq/L (21.0-32.0); Chloride 100 meq/L (98-107); Glomerular Filtration Rate Greater Than 89 mL/min (>89); Glucose,Random 54 mg/dL (74-106); Potassium 3.9 meq/L (3.5-5.1); Sodium 138 meq/L (136-145)
[2017-11-30] MEDS ORDERED: Dextrose 50% in Water 50 ML Vial IV.PUSH PRN (07:59)
--- NOTE | 2017-11-30 08:04 | P.PNIM ---
Subjective Interval history: f/u; uncontrolled diabetes in no acute distress. looks and feels better today. has an episode of hypoglycemia earlier today. otherwise no other complaints. d/w the RN and no acute issues over night. Physical Exam Vital signs: Vital Signs 11/29/17 08:31 11/29/17 08:34 11/29/17 09:05 Temperature 97.9 F Pulse Rate 75 80 Respiratory Rate 16 18 Blood Pressure 125/77 136/84 Pulse Oximetry 96 97 98 11/29/17 09:08 11/29/17 11:40 11/29/17 12:27 Temperature Pulse Rate 81 82 Respiratory Rate 18 18 Blood Pressure 134/87 134/87 Pulse Oximetry 98 98 96 11/29/17 13:21 11/29/17 16:00 11/29/17 20:00 Temperature 97.3 F L 97.9 F Pulse Rate 67 72 76 Respiratory Rate 18 18 18 Blood Pressure 154/98 H 145/91 H 119/93 H Pulse Oximetry 98 99 99 11/29/17 20:28 11/30/17 00:00 11/30/17 04:00 Temperature 98.1 F Pulse Rate 71 63 Respiratory Rate 18 18 Blood Pressure 103/59 L 113/69 Pulse Oximetry 100 100 100 Intake & Output 11/29/17 11/30/17 11/30/17 18:59 06:59 18:59 Intake Total 516 / 516 1940 / 1940 Output Total 200 / 200 600 / 600 Balance 316 / 316 1340 / 1340 Weight 60 kg 57.5 kg Intake: IV 36 / 36 500 / 500 NovoLIN R (IV Infusion) 100 36 / 36 UNIT In NS Inj 99 ML @ Per Protocol IV.CONT TITRATE PRN Rx #:[id number] NS Inj 500 ML @ 50 mls/hr IV. 500 / 500 CONT .Q10H CARMEN Rx#:[id number] Oral 480 / 480 1440 / 1440 Output: Urine 200 / 200 600 / 600 Other: # Bowel Movements 0 - Constitutional no acute distress - Routine Respiratory Exam Present: CTA bilaterally - Routine Cardiovascular Exam Present: RRR - Routine Abdominal Exam Present: soft - Routine Extremities Exam Comments: no pedal edema. - Routine Neurological Exam Present: alert, oriented X3 Results - Labs CBC & Chem 7: 11/29/17 09:11 11/30/17 04:47 Laboratory Results - last 24 hr 11/29/17 11/29/17 11/29/17 09:11 09:11 09:30 WBC 4.6 RBC 4.00 L Hgb 10.3 L Hct 34.6 L MCV 86.3 D MCH 25.8 L MCHC 29.9 L RDW 15.0 Plt Count 162 MPV 10.0 Neut % (Auto) 69.2 Lymph % (Auto) 20.6 [place] % (Auto) 8.2 H Eos % (Auto) 1.3 Baso % (Auto) 0.7 Neut # (Auto) 3.2 Lymph # (Auto) 0.9 L [place] # (Auto) 0.4 Eos # (Auto) 0.1 Baso # (Auto) 0.0 WBC Differential . Differential Comment Auto diff final Sodium 123 L* D Potassium 5.0 Chloride 88 L D Carbon Dioxide 25.9 Anion Gap 9 BUN 26 H Creatinine 1.71 H Estimated GFR 51 L POC Glucose Random Glucose 1015 H* D Calcium 8.2 L Total Bilirubin 0.8 AST 83 H ALT 203 H Alkaline Phosphatase 78 Total Protein 6.4 Albumin 3.4 Lipase 218 Urine Color Colorless Urine Clarity Clear Urine pH 6.0 Ur Specific [place] 1.023 Urine Protein Negative Urine Glucose (UA) 500 or greater Urine Ketones Negative Urine Occult Blood Small H Urine Nitrate Negative Urine Bilirubin Negative Urine Urobilinogen Less than 2 Ur Leukocyte Esterase Negative Urine Mucus Few H Micro UA Comment Culture not ind Ur Microscopic Review Not Reportable Urine Culture Comments Culture not ind Nasal Screen MRSA (PCR) 11/29/17 11/29/17 11/29/17 14:37 15:45 15:51 WBC RBC Hgb Hct MCV MCH MCHC RDW Plt Count MPV Neut % (Auto) Lymph % (Auto) [place] % (Auto) Eos % (Auto) Baso % (Auto) Neut # (Auto) Lymph # (Auto) [place] # (Auto) Eos # (Auto) Baso # (Auto) WBC Differential Differential Comment Sodium 139 D Potassium 4.6 Chloride 98 D Carbon Dioxide 27.7 Anion Gap 13 BUN 20 H Creatinine 1.37 H Estimated GFR 66 L POC Glucose 520 H* Random Glucose 375 H D Calcium 8.8 Total Bilirubin AST ALT Alkaline Phosphatase Total Protein Albumin Lipase Urine Color Urine Clarity Urine pH Ur Specific [place] Urine Protein Urine Glucose (UA) Urine Ketones Urine Occult Blood Urine Nitrate Urine Bilirubin Urine Urobilinogen Ur Leukocyte Esterase Urine Mucus Micro UA Comment Ur Microscopic Review Urine Culture Comments Nasal Screen MRSA (PCR) Mrsa detected 11/29/17 11/29/17 11/30/17 17:03 20:50 04:47 WBC RBC Hgb Hct MCV MCH MCHC RDW Plt Count MPV Neut % (Auto) Lymph % (Auto) [place] % (Auto) Eos % (Auto) Baso % (Auto) Neut # (Auto) Lymph # (Auto) [place] # (Auto) Eos # (Auto) Baso # (Auto) WBC Differential Differential Comment Sodium 138 Potassium 3.9 Chloride 100 Carbon Dioxide 29.4 Anion Gap 9 BUN 18 Creatinine 0.81 Estimated GFR Greater than 89 POC Glucose 353 H 266 H Random Glucose 54 L D Calcium 8.3 L Total Bilirubin AST ALT Alkaline Phosphatase Total Protein Albumin Lipase Urine Color Urine Clarity Urine pH Ur Specific [place] Urine Protein Urine Glucose (UA) Urine Ketones Urine Occult Blood Urine Nitrate Urine Bilirubin Urine Urobilinogen Ur Leukocyte Esterase Urine Mucus Micro UA Comment Ur Microscopic Review Urine Culture Comments Nasal Screen MRSA (PCR) Assessment and Plan - Plan A/P - uncontrolled diabetes mellitus due to non-compliance- patient is not in DKA- blood sugar has much trending down/ with hypoglycemic episode earlier today. off insulin drip- switched him back to subq long-acting insulin ; NPH 15 units subq bid- will downgrade the sliding scale to ' low scale'. -Hyponatremia- due to hyperglycemia; improved. -CAD/ s/p stent placement with cardiomyopathy; resumed aspirin, lasix. -CKD- improved on IV hydration- ; will stop the IV fluid. -DVT prophylaxis with subq Lovenox -consult case management since the patient is homeless. transfer to floor. Discharge Planning: dc home tomorrow if blood sugar remains stable.
[2017-11-30] MEDS: Insulin NovoLOG Aspart Correctional Sugar Inj SQ SCH ×4 (09:39→20:39)
[2017-11-30] MEDS: Enoxaparin Inj 40 MG/0.4 ML Syringe SQ SCH (09:40)
[2017-11-30] MEDS: Furosemide 20 MG Tablet PO SCH (09:40)
[2017-12-01] MEDS: Chlorhexidine Gluconate 2% 1 Pack (2 Cloths) TOPICAL SCH (04:09)
--- NOTE | 2017-12-01 08:55 | P.PNIM ---
Subjective Interval history: f/u; diabetes mellitus in no distress. no new complaints. blood sugar trend noted. no acute issues over night. d/w the RN. Physical Exam Vital signs: Vital Signs 11/30/17 09:00 11/30/17 10:00 11/30/17 11:00 Temperature Pulse Rate 68 63 65 Respiratory Rate 13 15 17 Blood Pressure 124/70 Pulse Oximetry 98 99 89 L 11/30/17 12:00 11/30/17 12:40 11/30/17 13:00 Temperature 98 F Pulse Rate 70 68 66 Respiratory Rate 15 20 17 Blood Pressure 110/58 L Pulse Oximetry 97 83 L 98 11/30/17 14:00 11/30/17 15:00 11/30/17 16:00 Temperature Pulse Rate 69 74 75 Respiratory Rate 19 18 19 Blood Pressure Pulse Oximetry 99 98 96 11/30/17 16:01 11/30/17 19:00 11/30/17 20:00 Temperature 98.5 F 98.6 F Pulse Rate 76 80 Respiratory Rate 19 20 Blood Pressure 100/57 L 112/79 Pulse Oximetry 95 100 98 11/30/17 20:01 12/01/17 00:00 12/01/17 04:00 Temperature Pulse Rate 72 63 Respiratory Rate 14 14 Blood Pressure 98/67 L 87/65 L Pulse Oximetry 98 98 98 12/01/17 08:40 Temperature Pulse Rate Respiratory Rate Blood Pressure Pulse Oximetry 97 Intake & Output 11/30/17 12/01/17 12/01/17 18:59 06:59 18:59 Intake Total 1940 / 1940 Output Total 900 / 900 1900 / 1900 Balance -900 / -900 40 / 40 Weight 58 kg Intake: IV 500 / 500 NS Inj 500 ML @ 50 mls/hr IV. 500 / 500 CONT .Q10H CARMEN Rx#:[id number] Oral 1440 / 1440 Output: Urine 900 / 900 1900 / 1900 Other: # Bowel Movements 0 - Constitutional no acute distress - Routine Respiratory Exam Present: CTA bilaterally - Routine Cardiovascular Exam Present: RRR - Routine Abdominal Exam Present: soft - Routine Extremities Exam Comments: no pedal edema. - Routine Neurological Exam Present: alert, oriented X3 Results - Labs CBC & Chem 7: 11/29/17 09:11 11/30/17 04:47 Laboratory Results - last 24 hr 11/30/17 11/30/17 11/30/17 13:08 18:56 20:30 POC Glucose 285 H 289 H 178 H 12/01/17 08:35 POC Glucose 216 H Assessment and Plan - Plan A/P - uncontrolled diabetes mellitus due to non-compliance- patient is not in DKA- blood sugar has much improved- with no recurrent hypoglycemia. switched him back to subq long-acting insulin ; NPH 18 units subq bid- continue the sliding scale . -Hyponatremia- due to hyperglycemia; improved. -CAD/ s/p stent placement with cardiomyopathy; resumed aspirin, lasix. noted that coumdin was listed as home medication but he's not sure if he takes it and why- patient is not compliant and says that he hasn't done any ' blood work for it' - will stop. -CKD- improved on IV hydration- -DVT prophylaxis with subq Lovenox -consult case management since the patient is homeless. transfer to floor. Discharge Planning: dc home today. case management consulted to assist with dc needs. patient was counselled extensively on diet/ medication compliance. d/w the RN and case management. f/u; pcp.
--- NOTE | 2017-12-01 08:59 | P.DS ---
Date of admission: 11/29/17 12:02 Primary care physician: No Primary Care Physician Brief History from admission: patient is a 52 y/o male, homeless, with history of diabetes mellitus- noncompliant with his insulin regimen and diet, CAD, cardiomyopathy , who presented to ER with elevated blood sugar. he says that he ran out of insulin while ago and he just gets the insulin when he comes to ER. in fact he was seen in ER yesterday and had an elevated blood sugar at the time.he denies any abdominal pain, nausea, vomiting with no report of fever, chest pain or sob.he uses cocaine. DS: Medications - Discharge Medications Prescriptions: insulin aspart U-100 [Novolog U-100 Insulin aspart] 1 sliding scale dose SUB-Q UD 30 Days ml insulin NPH and regular human [Novolin 70/30 U-100 Insulin] 18 units SUB-Q BID@ 0800,1700 30 Days #1 ml DS: Summary Hospital Course: patient was admitted with uncontrolled diabetes. he was initially started on insulin drip. he wasn't in DKA. his insulin drip was switched back to his subq insulin regimen . his blood sugar stabilized. he was counselled extensively on diet/ medication compliance.case management consulted to assist with dc needs. - Time Spent with Patient Total time spent providing and/or coordinating discharge services: Less than 30 minutes - Quality: VTE Deep Vein Thrombosis/Pulmonary Embolism Present on Admission: No Exam Vital signs: Vital Signs 11/30/17 09:00 11/30/17 10:00 11/30/17 11:00 Temperature Pulse Rate 68 63 65 Respiratory Rate 13 15 17 Blood Pressure 124/70 Pulse Oximetry 98 99 89 L 11/30/17 12:00 11/30/17 12:40 11/30/17 13:00 Temperature 98 F Pulse Rate 70 68 66 Respiratory Rate 15 20 17 Blood Pressure 110/58 L Pulse Oximetry 97 83 L 98 11/30/17 14:00 11/30/17 15:00 11/30/17 16:00 Temperature Pulse Rate 69 74 75 Respiratory Rate 19 18 19 Blood Pressure Pulse Oximetry 99 98 96 11/30/17 16:01 11/30/17 19:00 11/30/17 20:00 Temperature 98.5 F 98.6 F Pulse Rate 76 80 Respiratory Rate 19 20 Blood Pressure 100/57 L 112/79 Pulse Oximetry 95 100 98 11/30/17 20:01 12/01/17 00:00 12/01/17 04:00 Temperature Pulse Rate 72 63 Respiratory Rate 14 14 Blood Pressure 98/67 L 87/65 L Pulse Oximetry 98 98 98 12/01/17 08:40 Temperature Pulse Rate Respiratory Rate Blood Pressure Pulse Oximetry 97 Intake & Output 11/30/17 12/01/17 12/01/17 18:59 06:59 18:59 Intake Total 1940 / 1940 Output Total 900 / 900 1900 / 1900 Balance -900 / -900 40 / 40 Weight 58 kg Intake: IV 500 / 500 NS Inj 500 ML @ 50 mls/hr IV. 500 / 500 CONT .Q10H CARMEN Rx#:[id number] Oral 1440 / 1440 Output: Urine 900 / 900 1900 / 1900 Other: # Bowel Movements 0 - Constitutional no acute distress - Routine Respiratory Exam Present: CTA bilaterally - Routine Cardiovascular Exam Present: RRR - Routine Abdominal Exam Present: soft - Routine Extremities Exam Comments: no pedal edema. - Routine Neurological Exam Present: alert, oriented X3 Results Procedures completed during hospitalization: none. Labs on day of discharge: Labs from last 24 hours 12/01/17 11/30/17 11/30/17 08:35 20:30 18:56 POC Glucose 216 H 178 H 289 H 11/30/17 13:08 POC Glucose 285 H Discharge Plan - Discharge Disposition Patient Disposition: 01 Discharge Home - Discharge Condition Condition: Stable - Discharge Order Discharge Orders: Discharge Order (Routine); Ordered 12/01/17 Ordered By: Greg Yeung - Physicians Team Primary Care Provider: Primary Care Radha Gabriel Attending Provider: Greg Yeung
[2017-12-01] MEDS: Enoxaparin Inj 40 MG/0.4 ML Syringe SQ SCH (09:03)
[2017-12-01] MEDS: Insulin NovoLOG Aspart Correctional Sugar Inj SQ SCH (09:03)
[2017-12-01] MEDS: Furosemide 20 MG Tablet PO SCH (09:03)
[2017-12-01 09:06] VITALS: BP 128/77; PULSE 70; RESP 15; TEMP 98.1; O2SAT 96
== END 2017-12-01 11:15 | disposition home or self-care (01) ==
LOC: NEPE 08:23 → NEDA 12:02 → HIMC 15:05
PROVIDERS: ADMIT Internal Medicine; ATTEND Internal Medicine

== ENCOUNTER 2018-01-08 14:21 | Inpatient (IN) ==
[2018-01-08] MEDS ORDERED: Sod Chloride 0.9% Inj 1,000 ML IV.SIG ONE ×3 (15:09→17:01)
[2018-01-08] MEDS ORDERED: Dextrose 50% in Water 50 ML Vial IV.PUSH PRN ×2 (15:09→23:08)
[2018-01-08] MEDS ORDERED: Insulin Detemir Inj 1,000 UNIT/10 ML Vial SQ ONE (15:12)
--- NOTE | 2018-01-08 15:19 | ED ---
HPI General Chief complaint: Weakness Stated complaint: Gen weakness Time Seen by Provider: 01/08/18 15:00 Source: patient and EMS Mode of arrival: EMS Limitations: no limitations History of Present Illness HPI narrative: Chief complaint hyperglycemia. Onset today. Progression is continuous. Context is that he has not taken his insulin in the last couple of days. Associated symptoms include nausea, vomiting, polyuria, polydipsia and blurred vision. Onset (ago): hour(s) Severity: similar to prior episodes Relieving factors: none Exacerbating factors: none Associated symptoms: Reports headaches, malaise, nausea/vomiting and weakness; Denies confusion, chest pain, cough, diaphoresis, fever/chills, shortness of breath and syncope Treatments prior to arrival: Reports none Related Data Home Medications Medication Instructions Recorded Confirmed insulin aspart U-100 [Novolog 1 sliding scale dose SUB-Q TID 12/15/17 01/08/18 U-100 Insulin aspart] Previous Rx's Medication Instructions Recorded aspirin 81 mg PO DAILY #30 tab 10/09/17 furosemide 20 mg PO DAILY #30 tab 10/09/17 glimepiride 1 mg PO DAILY #30 tab 12/15/17 Allergies Allergy/AdvReac Type Severity Reaction Status Date / Time No Known Allergies Allergy Verified 01/08/18 15:02 Review of Systems ROS: all other systems reviewed are negative [facility] Medical History Medical History Chronic kidney disease (Acute) Cardiomyopathy (Acute) Heart attack (Acute) Abdominal hernia (Acute) Diabetes (Acute) Surgical History Surgical History Hx of hernia repair (Acute) Social History Social History Substance History: Active Abuse Second Hand Smoke Exposure: No Smoking Status: Former smoker Tobacco Type: Cigarettes How Often Do You Have a Drink Containing Alcohol: Never Recent Travel in [facility] within the Last 8 Weeks: No Recent Out of Country Travel within the Last 8 Weeks: No Substance Abuse Detail Crack/Cocaine: Substance Use Status: Active Immunization History Tetanus Immunization: Unsure Exam Const General: cooperative, comfortable, no acute distress, well developed and frail appearing Nutritional Appearance: cachectic Orientation: alert, awake and oriented x3 HENMT Head: normal to inspection, normocephalic and atraumatic Mouth: moist mucous membranes Eyes Alignment and Position: alignment normal and position abnormal Conjunctivae: conjunctivae normal Sclera: sclerae normal EOM: EOM intact bilaterally Neck Neck: normal visual inspection and full ROM Chest Chest: normal inspection of the chest Resp Effort & Inspection: normal respiratory effort and able to speak in complete sentences Auscultation: clear to auscultation bilaterally Cardio Rate: regular rate Rhythm: regular rhythm GI Inspection: normal to inspection Palpation: soft Back/Spine/Pelvis Cervical Spine: cervical ROM normal Thoracic/Lumbar Spine: thoraco-lumbar ROM normal Skin General: no rashes or lesions noted, turgor normal and dry skin Neuro General: alert, awake, oriented x3, moves all extremities and CN's II-XI intact bilaterally Extrem General: normal to inspection and full ROM Psych Appearance: grossly normal Mental Status: mental status grossly normal Speech and Movement: speech and movement normal Mood: congruent mood Affect: normal affect Attitude: cooperative Thought Process: normal Thought Content: normal Judgment: judgment good Course Consultations Consultation #1: Dr. Luque will admit to [facility] [place] Time: 16:55 Initial Documented Vital Signs Pulse Rate 70 01/08/18 14:56 Respiratory Rate 16 01/08/18 14:56 Blood Pressure 157/104 H 01/08/18 14:56 Pulse Oximetry 97 01/08/18 14:56 Last Documented Vital Signs Pulse Rate 73 01/08/18 15:04 Respiratory Rate 16 01/08/18 14:56 Blood Pressure 157/104 H 01/08/18 14:56 Pulse Oximetry 100 01/08/18 15:18 Critical Care Time Critical Care Time: Yes Total Critical Care Time: 40 Attestation: Time to perform other separately billable procedures was not included in the critical care time. My time did not include minutes spent treating any other patients simultaneously or on activities that did not directly contribute to the patient's treatment. The services I provided to this patient were to treat and/or prevent clinically significant deterioration due to hypoglycemia I provided critical care services requiring my management, as noted below: Chart data review, documentation time, medication orders and management, vital sign assessments/reviewing monitor data, ordering and reviewing lab tests, ordering and interpreting/reviewing x-rays and diagnostic studies, care of the patient and discussion of the patient with the admitting physicians Medical Decision Making MDM Narrative Medical decision making narrative: This patient presents with chief complaint of hyperglycemia with associated polyuria, polydipsia, blurred vision and nausea /vomiting. He will be treated initially with 2 L of fluid and subcutaneous insulin. Following laboratory evaluation, and insulin drip has been ordered. He will need to go to the intensive care unit for frequent monitoring of his glucose and electrolytes as well as because of the insulin drip. Medical Screen Exam Complete: Yes Emergency Medical Condition: Yes Differential Diagnosis Differential Diagnosis: Differential diagnosis of hyperglycemia includes but is not limited to dietary indiscretion, medication noncompliance, infection, [place] Medical Records Medical records reviewed: Yes I reviewed the patient's medical records. He had HIV on his list of medical problems. Patient states that he knew nothing about that diagnosis. I have gone back through his records. He had an HIV test done in 2017 but it was negative. We have taken HIV off of his list of medical problems. His list of medical problems does include diabetes with noncompliance, hypertension, coronary artery disease, cardiomyopathy, polysubstance abuse, chronic kidney disease, previous PEA arrest. Lab Data Lab results reviewed: Yes I reviewed the patient's lab results. Result diagrams: 01/08/18 15:29 01/08/18 15:29 Lab Results 01/08/18 01/08/18 01/08/18 Range/Units 15:04 15:21 15:29 WBC 4.6 (4.0-11.0) th/mm3 RBC 4.01 L (4.50-5.90) mil/mm3 Hgb 10.9 L (13.0-17.0) gm/dL Hct 35.4 L (39.0-51.0) % MCV 88.3 (80.0-100.0) fL MCH 27.1 (27.0-34.0) pg MCHC 30.7 L (32.0-36.0) % RDW 15.0 (11.6-17.2) % Plt Count 178 (150-450) th/mm3 MPV 10.3 (7.0-11.0) fL Neut % (Auto) 71.7 H (16.0-70.0) % Lymph % (Auto) 20.7 (9.0-44.0) % [place] % (Auto) 6.3 (0.0-8.0) % Eos % (Auto) 1.0 (0.0-4.0) % Baso % (Auto) 0.3 (0.0-2.0) % Neut # (Auto) 3.3 (1.8-7.7) th/mm3 Lymph # (Auto) 0.9 L (1.0-4.8) th/mm3 [place] # (Auto) 0.3 (0.0-0.9) th/mm3 Eos # (Auto) 0.0 (0.0-0.4) th/mm3 Baso # (Auto) 0.0 (0.0-0.2) th/mm3 WBC Differential . Differential Comment Auto diff final Puncture Site Lac Patient Temperature 98.6 VBG pH 7.34 L (7.360-7.400) VBG pCO2 38 L (44-48) mmHG VBG pO2 35 (35-40) mmHG VBG HCO3 20 L (22-26) mmol/L VBG O2 Saturation 61 L (70-76) % VBG O2 Content 7.4 L (9.0-17.0) Vol % VBG Base Excess -4.9 L (-2-2) mmol/L VBG Carboxyhemoglobin 2.5 (0-4) % VBG Methemoglobin 1.0 (0-2) % Hemoglobin 8.6 L (12.0-16.0) G/DL O2 Delivery Device Ra Inspired O2 21 % Critical Value No Sodium (136-145) meq/L Potassium (3.5-5.1) meq/L Chloride (98-107) meq/L Carbon Dioxide (21.0-32.0) meq/L Anion Gap (5-15) meq/L BUN (7-18) mg/dL Creatinine (0.60-1.30) mg/dL Estimated GFR (>89) mL/min POC Glucose Greater than 600 H* (68-110) mg/dl Random Glucose (74-106) mg/dL Calcium (8.5-10.1) mg/dL Total Bilirubin (0.2-1.0) mg/dL AST (15-37) U/L ALT (12-78) U/L Alkaline Phosphatase (45-117) U/L Total Protein (6.4-8.2) g/dL Albumin (3.4-5.0) g/dL Beta-Hydroxybutyric Acd (0.00-0.39) mmol/L Urine Color (Yellw/Straw) Urine Clarity (Clear) Urine pH (5.0-8.5) Ur Specific [place] (1.002-1.035) Urine Protein (Neg-Trace) mg/dL Urine Glucose (UA) (Negative) mg/dL Urine Ketones (Negative) mg/dL Urine Occult Blood (Negative) Urine Nitrate (Negative) Urine Bilirubin (Negative) Urine Urobilinogen (Less than 2) mg/dL Ur Leukocyte Esterase (Negative) Urine Mucus (Occasional) /lpf Micro UA Comment Ur Microscopic Review Urine Culture Comments 01/08/18 01/08/18 Range/Units 15:29 15:30 WBC (4.0-11.0) th/mm3 RBC (4.50-5.90) mil/mm3 Hgb (13.0-17.0) gm/dL Hct (39.0-51.0) % MCV (80.0-100.0) fL MCH (27.0-34.0) pg MCHC (32.0-36.0) % RDW (11.6-17.2) % Plt Count (150-450) th/mm3 MPV (7.0-11.0) fL Neut % (Auto) (16.0-70.0) % Lymph % (Auto) (9.0-44.0) % [place] % (Auto) (0.0-8.0) % Eos % (Auto) (0.0-4.0) % Baso % (Auto) (0.0-2.0) % Neut # (Auto) (1.8-7.7) th/mm3 Lymph # (Auto) (1.0-4.8) th/mm3 [place] # (Auto) (0.0-0.9) th/mm3 Eos # (Auto) (0.0-0.4) th/mm3 Baso # (Auto) (0.0-0.2) th/mm3 WBC Differential Differential Comment Puncture Site Patient Temperature VBG pH (7.360-7.400) VBG pCO2 (44-48) mmHG VBG pO2 (35-40) mmHG VBG HCO3 (22-26) mmol/L VBG O2 Saturation (70-76) % VBG O2 Content (9.0-17.0) Vol % VBG Base Excess (-2-2) mmol/L VBG Carboxyhemoglobin (0-4) % VBG Methemoglobin (0-2) % Hemoglobin (12.0-16.0) G/DL O2 Delivery Device Inspired O2 % Critical Value Sodium 120 L* (136-145) meq/L Potassium 4.7 (3.5-5.1) meq/L Chloride 82 L (98-107) meq/L Carbon Dioxide 23.8 (21.0-32.0) meq/L Anion Gap 14 (5-15) meq/L BUN 28 H (7-18) mg/dL Creatinine 1.58 H (0.60-1.30) mg/dL Estimated GFR 56 L (>89) mL/min POC Glucose (68-110) mg/dl Random Glucose 1002 H* (74-106) mg/dL Calcium 7.8 L (8.5-10.1) mg/dL Total Bilirubin 0.8 (0.2-1.0) mg/dL AST 63 H (15-37) U/L ALT 109 H (12-78) U/L Alkaline Phosphatase 88 (45-117) U/L Total Protein 6.4 (6.4-8.2) g/dL Albumin 3.2 L (3.4-5.0) g/dL Beta-Hydroxybutyric Acd 1.00 H (0.00-0.39) mmol/L Urine Color Colorless (Yellw/Straw) Urine Clarity Clear (Clear) Urine pH 6.0 (5.0-8.5) Ur Specific [place] 1.020 (1.002-1.035) Urine Protein Negative (Neg-Trace) mg/dL Urine Glucose (UA) 500 or greater (Negative) mg/dL Urine Ketones Trace H (Negative) mg/dL Urine Occult Blood Negative (Negative) Urine Nitrate Negative (Negative) Urine Bilirubin Negative (Negative) Urine Urobilinogen Less than 2 (Less than 2) mg/dL Ur Leukocyte Esterase Negative (Negative) Urine Mucus Few H (Occasional) /lpf Micro UA Comment Culture not ind Ur Microscopic Review Not Reportable Urine Culture Comments Culture not ind Discharge Plan Discharge Disposition Patient Disposition: 30 Still Patient Discharge Details Diagnosis: Acute hyperglycemia Physicians Team ED Provider: Ely Quintana Primary Care Provider: Primary Care Physici,No Rxs /Orders / Referrals /Forms Prescriptions: No Action aspirin 81 mg Tablet,Chewable 81 mg PO DAILY Qty: 30 RF: 0 furosemide 20 mg Tablet 20 mg PO DAILY Qty: 30 RF: 0 insulin aspart U-100 [Novolog U-100 Insulin aspart] 100 unit/mL solution 1 sliding scale dose SUB-Q TID RF: 0 glimepiride 1 mg tablet 1 mg PO DAILY Qty: 30 RF: 0 Status ED Status: Pending Admission
[2018-01-08 15:31] LABS: VBG Base Excess -4.9 mmol/L (-2-2); VBG Blood Gas Oxygen Content 7.4 Vol % (9.0-17.0); VBG PCO2 38 mmHG (44-48); VBG PH 7.34 (7.360-7.400); VBG PO2 35 mmHG (35-40)
[2018-01-08 15:50] LABS: Baso % (Auto) 0.3 % (0.0-2.0); Hematocrit 35.4 % (39.0-51.0); Hemoglobin 10.9 gm/dL (13.0-17.0); Lymph # (Auto) 0.9 th/mm3 (1.0-4.8); Lymph % (Auto) 20.7 % (9.0-44.0); Mean Corpuscular Hemoglobin 27.1 pg (27.0-34.0); Mean Corpuscular Volume 88.3 fL (80.0-100.0); Mean Platelet Volume 10.3 fL (7.0-11.0); Mono # (Auto) 0.3 th/mm3 (0.0-0.9); Mono % (Auto) 6.3 % (0.0-8.0); Neut # (Auto) 3.3 th/mm3 (1.8-7.7); Neut % (Auto) 71.7 % (16.0-70.0); Platelet Count 178 th/mm3 (150-450); Red Blood Count 4.01 mil/mm3 (4.50-5.90); White Blood Count 4.6 th/mm3 (4.0-11.0)
[2018-01-08 16:05] LABS: Mean Corpuscular HGB Conc 30.7 % (32.0-36.0)
[2018-01-08 16:08] LABS: Bilirubin,Urine Negative (Negative); Clarity,Urine Clear (Clear); Color,Urine Colorless (Yellw/Straw); Glucose,Urine (UA) 500 or Greater mg/dL (Negative); Leukocyte Esterase,Urine Negative (Negative); Mucus,Urine Few /lpf (Occasional); Nitrite,Urine Negative (Negative)
[2018-01-08 16:20] LABS: Alanine Aminotransferase 109 U/L (12-78); Albumin 3.2 g/dL (3.4-5.0); Alkaline Phosphatase 88 U/L (45-117); Anion Gap 14 meq/L (5-15); Aspartate Aminotransferase 63 U/L (15-37); Blood Urea Nitrogen 28 mg/dL (7-18); Calcium 7.8 mg/dL (8.5-10.1); Carbon Dioxide 23.8 meq/L (21.0-32.0); Chloride 82 meq/L (98-107); Glomerular Filtration Rate 56 mL/min (>89); Potassium 4.7 meq/L (3.5-5.1); Total Protein 6.4 g/dL (6.4-8.2)
[2018-01-08 16:22] LABS: Glucose,Random 1002 mg/dL (74-106); Sodium 120 meq/L (136-145)
[2018-01-08] MEDS ORDERED: Insulin Regular (For Infusion) 100 UNIT in Sodium Chlor 0.9% Inj 99 ML IV.CONT PRN (16:22)
[2018-01-08] MEDS ORDERED: Potassium Chlor 40 mEq Premix 40 MEQ/100 ML PIGGYBACK IV.SIG PRN ×4 (16:24→17:01)
[2018-01-08] MEDS ORDERED: Potassium Chlor 20 mEq Premix 20 MEQ/100 ML PIGGYBACK IV.SIG PRN ×8 (16:24→17:01)
[2018-01-08] MEDS ORDERED: Sodium Phosphate Inj 15 MMOL in Sodium Chlor 0.9% Inj 100 ML IV.SIG PRN (16:24)
[2018-01-08] MEDS ORDERED: Potassium Phosphate 500 MG Soluble Tablet PO PRN ×2 (17:01)
[2018-01-08] MEDS ORDERED: Magnesium Oxide 400 MG Tablet PO PRN (17:01)
[2018-01-08] MEDS ORDERED: Magnesium Sulfate Inj 4 GM in Sodium Chlor 0.9% Inj 92 ML IV.SIG PRN (17:01)
[2018-01-08] MEDS ORDERED: Bisacodyl 10 MG Supp RECTAL PRN (17:01)
[2018-01-08] MEDS ORDERED: Acetaminophen 325 MG Tablet PO PRN (17:01)
[2018-01-08] MEDS ORDERED: Potassium Chloride 25 MEQ Effervescent Tablet PO PRN (17:01)
[2018-01-08] MEDS ORDERED: Sodium Phosphate Inj 30 MMOL in Sodium Chlor 0.9% Inj 250 ML IV.SIG PRN (17:01)
[2018-01-08] MEDS ORDERED: Magnesium Sulfate Inj 2 GM in Sodium Chlor 0.9% Inj 96 ML IV.SIG PRN (17:01)
[2018-01-08] MEDS ORDERED: Potassium Phosphate Inj 30 MMOL in Sodium Chlor 0.9% Inj 250 ML IV.SIG PRN (17:01)
[2018-01-08] MEDS: Sod Chloride 0.9% Inj 1,000 ML IV.CONT SCH ×2 (17:08→21:57)
[2018-01-08] MEDS: Sodium Chlor 0.9% Inj 500 ML IV.CONT SCH ×2 (17:08→22:35)
--- NOTE | 2018-01-08 17:11 | P.HPCC ---
History of Present Illness Service: Critical care Primary Care Physician: No Primary Care Physician Chief Complaint: Hyperglycemia History of Present Illness: 52yM presenting with hyperglycemia. The patient has a history of diabetes but says that he is currently homeless, his son went to [place] a few days ago, and he has no means to get his medications. He has not taken any of his diabetes medications for 3-4 days, and reports that 2 days ago he began to have increased thirst, increased urination, and nausea. He presented to the ED today because "I can feel when my sugar is too high". He has had multiple admissions for hyperglycemia, acute kidney injury, and dehydration in the past. History of DM, CHF with EF of 25%, substance abuse (specifically crack cocaine use), CAD s/p stent, and chronic kidney disease. Family history is significant for mother with diabetes. - Diagnosis (1) Hyperosmolar non-ketotic state in patient with type 2 diabetes mellitus (2) Xjqta-hj-kgsftgs kidney injury (3) Cocaine abuse (4) Acute hyponatremia Inpatient Certification: I certify that the inpatient services were ordered in accordance with Medicare regulations governing the order. This includes certification that hospital inpatient services are reasonable and necessary and in the case of services not specified as inpatient-only under 42 CFR 419.22(n), that they are appropriately provided as inpatient services in accordance to with the 2-midnight benchmark under 43 CFR 412.3(e) Estimated Total Length of Stay (Days): 4 Plans for Post Hospital Care: Home Review of Systems All other systems reviewed negative except as stated in HPI Constitutional: Denies fever(s) Eyes: Denies blurry vision Ears, Nose, Mouth, and Throat: Denies nasal congestion Cardiovascular: Denies chest pain Respiratory: Denies cough Gastrointestinal: Reports nausea, Denies abdominal pain, Denies vomiting Genitourinary: Reports urinary frequency Skin/Breast: Denies rash Neurologic: Denies confusion Endocrine: Reports increased thirst, Reports increased urination PMFSH - History History Provided By: Patient - Medical History Medical History: Medical History (Last Updated 01/08/18 @ 17:20 by Kaci Luque DO) CAD (coronary artery disease) (Acute) Chronic kidney disease (Acute) Cardiomyopathy (Acute) Heart attack (Acute) Abdominal hernia (Acute) Diabetes (Acute) - Surgical History Surgical History: Surgical History (Last Updated 01/08/18 @ 17:20 by Kaci Luque DO) Stented coronary artery (Acute) Hx of hernia repair - Family History Family History: Family History (Last Reviewed 01/08/18 @ 17:19 by Kaci Luque DO) Mother Family history of diabetes mellitus - Social History I have reviewed the patient's Social History: Yes - Tobacco History Second Hand Smoke Exposure: No Tobacco Use In Past 30 Days: No Smoking Status: Former smoker Tobacco Type: Cigarettes - Alcohol History How Often Do You Have a Drink Containing Alcohol: Never - Substance Use History Substance History: Active Abuse - Substance Use Type Crack/Cocaine Status: Active - Travel History Recent Travel in the [place] Within the Last 8 Weeks: No Recent Travel Out of the Country Within the Last 8 Weeks: No - Immunization History Tetanus Immunization: Unsure Medications and Allergies Active Medications: Active Medications Acetaminophen (Tylenol) 650 mg PO Q6H PRN PRN Reason: PAIN 1-10 AND/OR FEVER >101F Al Hydroxide/Mg Hydroxide (Milk Of Magnron Liq) 30 ml PO Q12H PRN PRN Reason: Mild Constipation Aspirin (Aspirin Chew) 81 mg PO DAILY CARMEN Bisacodyl (Dulcolax Supp) 10 mg RECTAL DAILY PRN PRN Reason: SEVERE CONSITIPATION Chlorhexidine Gluconate (Chlorhexidine 2% Cloth) 3 pack TOPICAL DAILY@0400 [facility] Stop: 01/14/18 03:59 Dextrose (D50w Vial) 50 ml IV.PUSH UNSCH PRN PRN Reason: PER HYPOGLYCEMIA PROTOCOL Enoxaparin Sodium (Lovenox Inj) 40 mg SQ Q24H CARMEN Famotidine (Pepcid) 20 mg PO BID CARMEN Famotidine (Pepcid Pf Inj) 20 mg IV.PUSH Q12HR CARMEN Insulin Human Regular 100 unit (/ Sodium Chloride) 100 mls @ 6 mls/hr IV.CONT TITRATE PRN; Protocol PRN Reason: See protocol Sodium Chloride (Ns Inj) 500 mls @ 125 mls/hr IV.CONT .Q4H CARMEN Dextrose/Sodium Chloride (D5w/Normal Saline Inj) 1,000 mls @ 200 mls/hr IV.CONT .Q5H CARMEN Potassium Chloride (Kcl 20 Meq Premix Inj) 20 meq in 100 mls @ 100 mls/hr IV.SIG Q1H PRN PRN Reason: for K+ 4.5 to 5 Potassium Chloride (Kcl 20 Meq Premix Inj) 20 meq in 100 mls @ 50 mls/hr IV.SIG Q2H PRN PRN Reason: for K+ 4.5 to 5 Potassium Chloride (Kcl 20 Meq Premix Inj) 20 meq in 100 mls @ 100 mls/hr IV.SIG Q1H PRN PRN Reason: for K+ 3.5 to 4.4 Potassium Chloride (Kcl 20 Meq Premix Inj) 20 meq in 100 mls @ 50 mls/hr IV.SIG Q2H PRN PRN Reason: for K+ 3.5 to 4.4 Potassium Chloride (Kcl 20 Meq Premix Inj) 20 meq in 100 mls @ 50 mls/hr IV.SIG Q2H PRN PRN Reason: for Initial K+ ONLY < 3.5 Potassium Chloride (Kcl 40 Meq Premix Inj) 40 meq in 100 mls @ 100 mls/hr IV.SIG Q1H PRN PRN Reason: for Initial K+ ONLY < 3.5 Potassium Chloride (Kcl 20 Meq Premix Inj) 20 meq in 100 mls @ 50 mls/hr IV.SIG Q2H PRN PRN Reason: for Subsequent K+ < 3.5 Potassium Chloride (Kcl 40 Meq Premix Inj) 40 meq in 100 mls @ 50 mls/hr IV.SIG Q2H PRN PRN Reason: for Subsequent K+ < 3.5 Sodium Chloride (Ns Inj) 1,000 mls @ 250 mls/hr IV.CONT .Q4H CARMEN Sodium Phosphate 15 mmol/ (Sodium Chloride) 105 mls @ 25 mls/hr IV.SIG UNSCH PRN PRN Reason: for Phosphate Level < 1.0 Sodium Chloride (Ns Inj) 1,000 mls @ 0 mls/hr IV.SIG BOLUS ONE Stop: 01/08/18 17:02 Magnesium Sulfate 4 gm/ Sodium (Chloride) 100 mls @ 50 mls/hr IV.SIG UNSCH PRN PRN Reason: For Magnesium 0.9 - 1.1 mg/dL Magnesium Sulfate 2 gm/ Sodium (Chloride) 100 mls @ 50 mls/hr IV.SIG UNSCH PRN PRN Reason: For Magnesium 1.2 - 1.6 mg/dL Potassium Chloride (Kcl 40 Meq Premix Inj) 40 meq in 100 mls @ 25 mls/hr IV.SIG Q2H PRN PRN Reason: For Potassium 2.8 - 3.2 mEq/L Potassium Chloride (Kcl 20 Meq Premix Inj) 20 meq in 100 mls @ 50 mls/hr IV.SIG Q2H PRN PRN Reason: For Potassium 3.3 - 3.5 mEq/L Potassium Chloride (Kcl 40 Meq Premix Inj) 40 meq in 100 mls @ 25 mls/hr IV.SIG UNSCH PRN PRN Reason: For Potassium 3.3 - 3.5 mEq/L Potassium Chloride (Kcl 20 Meq Premix Inj) 20 meq in 100 mls @ 50 mls/hr IV.SIG Q2H PRN PRN Reason: For Potassium 2.8 - 3.2 mEq/L Potassium Phosphate 30 mmol/ (Sodium Chloride) 260 mls @ 42 mls/hr IV.SIG UNSCH PRN PRN Reason: SEE LABEL COMMENTS Sodium Phosphate 30 mmol/ (Sodium Chloride) 260 mls @ 42 mls/hr IV.SIG UNSCH PRN PRN Reason: For Phosphorus < 2.5 mg/dL Lactulose (Lactulose Liq) 30 ml PO DAILY PRN PRN Reason: SEVERE CONSITIPATION Magnesium Oxide (Mag-Ox) 800 mg PO UNSCH PRN PRN Reason: For Magnesium 1.2 - 1.6 mg/dL Ondansetron HCl (Zofran Inj) 4 mg IV.PUSH Q6H PRN PRN Reason: NAUSEA OR VOMITING Potassium Bicarb/Potassium Chloride (K-Lyte Cl Eff) 50 meq PO UNSCH PRN PRN Reason: For Potassium 3.3 - 3.5 mEq/L Potassium Phosphate (K-Phos Original) 2,000 mg PO Q4H PRN PRN Reason: Phosphorus Less Than 2.5 mg/dL Potassium Phosphate (K-Phos Original) 2,000 mg PO UNSCH PRN PRN Reason: SEE LABEL COMMENTS Senna/Docusate Sodium (Rula-Colace) 1 tab PO BID CARMEN Sennosides (Senokot) 17.2 mg PO Q12H PRN PRN Reason: Moderate Constipation Sodium Bicarbonate (Sodium Bicarbonate 8.4% Inj) 100 meq IV.PUSH UNSCH PRN PRN Reason: for pH less than 6.9 Sodium Bicarbonate (Sodium Bicarbonate 8.4% Inj) 50 meq IV.PUSH UNSCH PRN PRN Reason: for pH 6.9 to 7.0 Sodium Chloride (Ns Flush) 2 ml IV.FLUSH PRN PRN PRN Reason: FLUSH AFTER USING IV ACCESS Sodium Chloride (Ns Flush) 2 ml IV.FLUSH BID CARMEN Sodium Chloride (Ns Flush) 2 ml IV.FLUSH PRN PRN PRN Reason: FLUSH AFTER USING IV ACCESS Allergies Allergy/AdvReac Type Severity Reaction Status Date / Time No Known Allergies Allergy Verified 01/08/18 15:02 Home Medications Medication Instructions Recorded Confirmed Type insulin aspart U-100 [Novolog 1 sliding scale dose SUB-Q TID 12/15/17 01/08/18 History U-100 Insulin aspart] Results - Labs CBC & Chem 7: 01/08/18 15:29 01/08/18 15:29 Labs: Short CBC 01/08/18 Range/Units 15:29 WBC 4.6 (4.0-11.0) th/mm3 Hgb 10.9 L (13.0-17.0) gm/dL Hct 35.4 L (39.0-51.0) % Plt Count 178 (150-450) th/mm3 BMP 01/08/18 15:29 Sodium 120 L* Potassium 4.7 Chloride 82 L Carbon Dioxide 23.8 BUN 28 H Creatinine 1.58 H Calcium 7.8 L Liver Function 01/08/18 Range/Units 15:29 Total Bilirubin 0.8 (0.2-1.0) mg/dL AST 63 H (15-37) U/L ALT 109 H (12-78) U/L Alkaline Phosphatase 88 (45-117) U/L Albumin 3.2 L (3.4-5.0) g/dL Urine 01/08/18 Range/Units 15:30 Urine Color Colorless (Yellw/Straw) Urine Clarity Clear (Clear) Urine pH 6.0 (5.0-8.5) Ur Specific [place] 1.020 (1.002-1.035) Urine Protein Negative (Neg-Trace) mg/dL Urine Glucose (UA) 500 or greater (Negative) mg/dL Exam Vital signs: Vital Signs 01/08/18 14:56 01/08/18 15:04 01/08/18 15:18 Pulse Rate 70 73 Respiratory Rate 16 Blood Pressure 157/104 H Pulse Oximetry 97 100 Intake & Output 01/07/18 01/08/18 01/08/18 18:59 06:59 18:59 Intake Total 1999 Balance 1999 Weight 63.503 kg Intake: IV 1999 NS Inj 1,000 ML @ Wide Open IV. 1999 SIG BOLUS ONE Rx#:[id number] Narrative: GEN: Cachectic, no acute distress HEENT: NCAT, mucosa dry NECK: Trachea midline CARDIO: Regular rate and rhythm PULM: Clear to auscultation bilaterally ABD/GI: Soft and non-tender in all quadrants, no guarding or rebound EXT/MS: No peripheral edema SKIN: No rashes or lesions, poor turgor NEURO: A&Ox3, answers questions appropriately, normal mentation, no focal neuro deficits PSYCH: Appropriate affect Caprini VTE Risk Assessment Caprini VTE Risk Assessment: No/Low Risk (score <= 1) Caprini Risk Assessment Model: Point Value = 1 Point Value = 2 Point Value = 3 Point Value = 5 Age 41-60 Minor surgery BMI > 25 kg/m2 Swollen legs Varicose veins or History of unexplained or recurrent spontaneous Oral contraceptives or hormone replacement Sepsis (< 1 month) Serious lung disease, including pneumonia (< 1 month) Abnormal pulmonary function Acute myocardial infarction Congestive heart failure (< 1 month) History of inflammatory bowel disease Medical patient at bed rest Age 61-74 Arthroscopic surgery Major open surgery (> 45 min) Laparoscopic surgery (> 45 min) Malignancy Confined to bed (> 72 hours) Immobilizing plaster cast Central venous access Age >= 75 History of VTE Family history of VTE Factor V Leiden Prothrombin [id number] Lupus anticoagulant Anticardiolipin antibodies Elevated serum homocysteine Heparin-induced thrombocytopenia Other congenital or acquired thrombophilia Stroke (< 1 month) Elective arthroplasty Hip, pelvis, or leg fracture Acute spinal cord injury (< 1 month) Prophylaxis Regimen: Total Risk Factor Score Risk Level Prophylaxis Regimen 0-1 Low Early ambulation 2 Moderate Order ONE of the following: *Sequential Compression Device (SCD) *Heparin 5000 units SQ BID 3-4 Higher Order ONE of the following medications: *Heparin 5000 units SQ TID *Enoxaparin/Lovenox 40 mg SQ daily (WT < 150 kg, CrCl > 30 mL/min) *Enoxaparin/Lovenox 30 mg SQ daily (WT < 150 kg, CrCl > 10-29 mL/min) *Enoxaparin/Lovenox 30 mg SQ BID (WT < 150 kg, CrCl > 30 mL/min) AND/OR *Sequential Compression Device (SCD) 5 or more Highest Order ONE of the following medications: *Heparin 5000 units SQ TID (Preferred with Epidurals) *Enoxaparin/Lovenox 40 mg SQ daily (WT < 150 kg, CrCl > 30 mL/min) *Enoxaparin/Lovenox 30 mg SQ daily (WT < 150 kg, CrCl > 10-29 mL/min) *Enoxaparin/Lovenox 30 mg SQ BID (WT < 150 kg, CrCl > 30 mL/min) AND *Sequential Compression Device (SCD) Assessment and Plan - Problem List (1) Hyperosmolar non-ketotic state in patient with type 2 diabetes mellitus Code(s): E11.01 - Type 2 diabetes mellitus with hyperosmolarity with coma Status: Acute (2) Vehty-nc-ddsldyf kidney injury Code(s): N17.9 - Acute kidney failure, unspecified; N18.9 - Chronic kidney disease, unspecified Status: Acute (3) Cocaine abuse Code(s): F14.10 - Cocaine abuse, uncomplicated Status: Acute (4) Acute hyponatremia Code(s): E87.1 - Hypo-osmolality and hyponatremia Status: Acute - Assessment and Plan Plan: 52yM presenting with hyperosmolar hyperglycemic state, acute kidney injury, dehydration NEURO: -Monitor for signs of drug or alcohol withdrawal -PRN Tylenol CARDIO: -Received 2L NS bolus, now on 250/hr -Patient has a history of cardiomyopathy with EF 25%, monitor for signs of fluid overload -Continue home ASA for cardiac stent PULM: -Incentive spirometer F/E/N: -Currently on 250 cc/hr -NPO for now, can likely start diabetic diet in AM when glucose is better controlled -ICU lyte repletion protocol RENAL: -Creat 1.58, had been around 1.0-1.2 on previous visits -Sodium 120 which is consistent with hyperglycemia (corrected Na 134) -Monitor Is and Os, trend BUN/ creat ENDO: -Insulin drip -q1h Acchuchecks while on drip -Anion gap normal, continue insulin drip until glucose is around 200, then transition to sliding scale -Patient has no evidence of infection, episode likely precipitated by medication non-compliance * Screening CXR * UA negative PROPHY: -SCDs, lovenox -PPI until tolerating diet OVERALL: This patient is critically ill and requires ICU level of care for insulin drip, frequent glucose checks, electrolyte repletion, and close monitoring. Counseling/ Coordination of Care: Total critical care time spent is 40 minutes. This includes examining the patient, gathering history from someone other than the patient (i.e. chart review), discussing the patient's care with other providers, managing the patient's insulin and IV fluid requirements, ordering and interpreting radiologic studies, ordering and interpreting laboratory values, and documentation. Amount of time is separate from teaching, counseling the patient and/or family, and exclusive of procedures. Code Status: Full
--- NOTE | 2018-01-08 18:00 | XR ---
EXAM DATE: 01/08/2018 12:00 AM EDT AGE/SEX: 52 years / Male INDICATIONS: . Shortness of breath. Hypertension. CLINICAL DATA: This is the patient's initial encounter. Patient reports that signs and symptoms have been present for 4 - 6 days and indicates a pain score of 0/10. MEDICAL/SURGICAL HISTORY: Hypertension. None. [place]: [facility] [place]. . FINDINGS: AP and lateral views of the chest demonstrate the lungs to be symmetrically aerated without evidence of mass, infiltrate or effusion. The cardiomediastinal contours are unremarkable. Osseous structure s are intact. CONCLUSION: No acute cardiopulmonary disease. Electronically signed by: Manan Ferrer MD 01/08/2018 5:59 PM EDT
[2018-01-08] MEDS: Enoxaparin Inj 40 MG/0.4 ML Syringe SQ SCH (19:11)
[2018-01-08] MEDS ORDERED: Famotidine PF Inj 20 MG/2 ML Vial IV.PUSH SCH (21:00)
[2018-01-08] MEDS: Senna/Docusate Sodium 8.6/50 MG Tablet PO SCH (21:58)
[2018-01-08] MEDS: Famotidine 20 MG Tablet PO SCH (21:58)
[2018-01-08] MEDS: Dextrose 5%/NaCl 0.9% Inj 1,000 ML IV.CONT SCH ×2 (22:13→22:34)
[2018-01-08 22:56] LABS: Anion Gap 8 meq/L (5-15); Blood Urea Nitrogen 20 mg/dL (7-18); Calcium 7.9 mg/dL (8.5-10.1); Carbon Dioxide 25.9 meq/L (21.0-32.0); Chloride 103 meq/L (98-107); Glomerular Filtration Rate Greater Than 89 mL/min (>89); Glucose,Random 120 mg/dL (74-106); Magnesium 1.8 mg/dL (1.5-2.5); Potassium 3.7 meq/L (3.5-5.1); Sodium 137 meq/L (136-145)
[2018-01-08] MEDS ORDERED: DC previous DKA orders (HMC 1917) OTHER ONE (23:08)
[2018-01-08] MEDS ORDERED: DC Insulin drip 2 hrs post basal insulin dose OTHER ONE (23:08)
[2018-01-09] MEDS: Insulin NovoLOG Aspart Correctional Sugar Inj SQ SCH ×7 (02:13→20:03)
[2018-01-09] MEDS: Sod Chloride 0.9% Inj 1,000 ML IV.CONT SCH (02:35)
[2018-01-09] MEDS: Chlorhexidine Gluconate 2% 1 Pack (2 Cloths) TOPICAL SCH (03:51)
[2018-01-09] MEDS ORDERED: Chlorhexidine Gluconate 2% 1 Pack (2 Cloths) TOPICAL PRN (04:00)
[2018-01-09] MEDS ORDERED: Chlorhexidine Gluconate 2% 1 Pack (2 Cloths) TOPICAL SCH (04:00)
[2018-01-09 04:17] LABS: Baso % (Auto) 0.3 % (0.0-2.0); Eos # (Auto) 0.1 th/mm3 (0.0-0.4); Eos % (Auto) 1.9 % (0.0-4.0); Hematocrit 30.5 % (39.0-51.0); Hemoglobin 9.8 gm/dL (13.0-17.0); Lymph # (Auto) 1.7 th/mm3 (1.0-4.8); Lymph % (Auto) 36.1 % (9.0-44.0); Mean Corpuscular HGB Conc 32.2 % (32.0-36.0); Mean Corpuscular Hemoglobin 27.1 pg (27.0-34.0); Mean Corpuscular Volume 84.2 fL (80.0-100.0); Mean Platelet Volume 9.7 fL (7.0-11.0); Mono # (Auto) 0.4 th/mm3 (0.0-0.9); Mono % (Auto) 8.4 % (0.0-8.0); Neut # (Auto) 2.5 th/mm3 (1.8-7.7); Neut % (Auto) 53.3 % (16.0-70.0); Platelet Count 160 th/mm3 (150-450); Red Blood Count 3.63 mil/mm3 (4.50-5.90); Red Cell Distribution Width 14.8 % (11.6-17.2); White Blood Count 4.8 th/mm3 (4.0-11.0)
[2018-01-09 04:43] LABS: Anion Gap 8 meq/L (5-15); Blood Urea Nitrogen 17 mg/dL (7-18); Calcium 7.3 mg/dL (8.5-10.1); Carbon Dioxide 23.3 meq/L (21.0-32.0); Chloride 104 meq/L (98-107); Glomerular Filtration Rate Greater Than 89 mL/min (>89); Glucose,Random 360 mg/dL (74-106); Magnesium 1.8 mg/dL (1.5-2.5); Phosphorus 2.3 mg/dL (2.5-4.9); Potassium 4.3 meq/L (3.5-5.1); Sodium 135 meq/L (136-145)
[2018-01-09 04:59] LABS: Total Protein 5.2 g/dL (6.4-8.2)
[2018-01-09] MEDS ORDERED: Potassium Chlor 20 mEq Premix 20 MEQ/100 ML PIGGYBACK IV.SIG PRN ×2 (06:31)
[2018-01-09] MEDS ORDERED: Magnesium Sulfate Inj 4 GM in Sodium Chlor 0.9% Inj 92 ML IV.SIG PRN (06:31)
[2018-01-09] MEDS ORDERED: Potassium Chloride 25 MEQ Effervescent Tablet PO PRN (06:31)
[2018-01-09] MEDS ORDERED: Potassium Phosphate Inj 30 MMOL in Sodium Chlor 0.9% Inj 250 ML IV.SIG PRN (06:31)
[2018-01-09] MEDS ORDERED: Potassium Phosphate 500 MG Soluble Tablet PO PRN ×2 (06:31)
[2018-01-09] MEDS ORDERED: Magnesium Sulfate Inj 2 GM in Sodium Chlor 0.9% Inj 96 ML IV.SIG PRN (06:31)
[2018-01-09] MEDS ORDERED: Magnesium Oxide 400 MG Tablet PO PRN (06:31)
[2018-01-09] MEDS ORDERED: Potassium Chlor 40 mEq Premix 40 MEQ/100 ML PIGGYBACK IV.SIG PRN ×2 (06:31)
[2018-01-09] MEDS ORDERED: Sodium Phosphate Inj 30 MMOL in Sodium Chlor 0.9% Inj 250 ML IV.SIG PRN (06:31)
--- NOTE | 2018-01-09 06:40 | P.PNCC ---
Subjective Subjective Remarks/Hospital Course: 52yM presenting with hyperglycemia. The patient has a history of diabetes but says that he is currently homeless, his son went to [place] a few days ago, and he has no means to get his medications. He has not taken any of his diabetes medications for 3-4 days, and reports that 2 days ago he began to have increased thirst, increased urination, and nausea. He presented to the ED today because "I can feel when my sugar is too high". He has had multiple admissions for hyperglycemia, acute kidney injury, and dehydration in the past. History of DM, CHF with EF of 25%, substance abuse (specifically crack cocaine use), CAD s/p stent, and chronic kidney disease. Family history is significant for mother with diabetes. 01/09: No events overnight, glucose significantly improved this morning (1000+ down to <300). Cardiac/ diabetic diet ordered, will transition to SSI. He only complains of feeling hungry. Objective Vital Signs / I&O: Vital Signs 01/08/18 14:56 01/08/18 15:04 01/08/18 15:18 Temperature Pulse Rate 70 73 Respiratory Rate 16 Blood Pressure 157/104 H Pulse Oximetry 97 100 01/08/18 17:24 01/08/18 19:14 01/08/18 20:00 Temperature 98.4 F 98.6 F Pulse Rate 63 77 64 Respiratory Rate 12 14 19 Blood Pressure 158/99 H 163/91 H 144/80 H Pulse Oximetry 99 97 97 01/08/18 21:00 01/08/18 21:30 01/08/18 21:49 Temperature Pulse Rate 63 71 Respiratory Rate 19 17 Blood Pressure 116/76 Pulse Oximetry 99 97 97 01/08/18 22:00 01/08/18 23:00 01/09/18 00:00 Temperature 98.2 F Pulse Rate 71 59 L 67 Respiratory Rate 16 20 18 Blood Pressure 123/67 128/73 127/72 Pulse Oximetry 97 94 L 96 01/09/18 01:00 01/09/18 02:00 Temperature Pulse Rate 68 54 L Respiratory Rate 117 H 17 Blood Pressure 111/57 L 113/61 Pulse Oximetry 97 97 Intake & Output 01/08/18 01/08/18 01/09/18 06:59 18:59 06:59 Intake Total 3000 / 3000 2225 / 2225 Output Total 1600 / 1600 Balance 1400 / 1400 2225 / 2225 Weight 63.503 kg 55.7 kg Intake: IV 3000 / 3000 2225 / 2225 D5W/Normal Saline Inj 1,000 ML 200 / 200 @ 200 mls/hr IV.CONT .Q5H CARMEN Rx#:[id number] NovoLIN R (IV Infusion) 100 25 / 25 UNIT In NS Inj 99 ML @ 6 UNITS/ HR 6 mls/hr IV.CONT TITRATE PRN Rx#:[id number] NS Inj 1,000 ML @ 250 mls/hr IV 1250 / 1250 .CONT .Q4H CARMEN Rx#:[id number] NS Inj 500 ML @ 125 mls/hr IV. 650 / 650 CONT .Q4H CARMEN Rx#:[id number] KCl 20 mEq Premix Inj 20 meq In 100 / 100 100 ml @ 50 mls/hr IV.SIG Q2H PRN Rx#:[id number] NS Inj 1,000 ML @ Wide Open IV. 3000 / 3000 SIG BOLUS ONE Rx#:[id number] Output: Urine 1600 / 1600 Other: Weight On Admission 55.7 kg Result Diagrams: 01/09/18 03:39 01/09/18 03:39 Objective Remarks: GEN: No acute distress HEENT: NCAT, mucosa moist NECK: Trachea midline CARDIO: Regular rate and rhythm PULM: Clear to auscultation bilaterally ABD/GI: Soft and non-tender in all quadrants, no guarding or rebound EXT/MS: No peripheral edema SKIN: No rashes or lesions, fair turgor NEURO: A&Ox3, normal mentation, no focal neuro deficits PSYCH: Appropriate affect Assessment and Plan - Problem List (1) Hyperosmolar non-ketotic state in patient with type 2 diabetes mellitus Code(s): E11.01 - Type 2 diabetes mellitus with hyperosmolarity with coma Status: Acute (2) Dvtcu-ce-sscegxk kidney injury Code(s): N17.9 - Acute kidney failure, unspecified; N18.9 - Chronic kidney disease, unspecified Status: Acute (3) Cocaine abuse Code(s): F14.10 - Cocaine abuse, uncomplicated Status: Acute (4) Acute hyponatremia Code(s): E87.1 - Hypo-osmolality and hyponatremia Status: Acute - Assessment and Plan Plan: 52yM presenting with hyperosmolar hyperglycemic state, acute kidney injury, dehydration NEURO: -Monitor for signs of drug or alcohol withdrawal -PRN Tylenol CARDIO: -Patient has a history of cardiomyopathy with EF 25%, monitor for signs of fluid overload -Continue home ASA for cardiac stent -D/C IVF PULM: -Incentive spirometer F/E/N: -Diabetic cardiac diet, d/c IVF -ICU lyte repletion protocol RENAL: -Creat now back to baseline of 1.0, ANAMIKA resolved -Sodium corrected with improved glucose control ENDO: -Transition insulin gtt to sliding scale -Accuchecks -Patient has no evidence of infection, episode likely precipitated by medication non-compliance PROPHY: -SCDs, lovenox -No indication for PPI once eating OVERALL: This patient has significantly improved with IV hydration and insulin drip overnight. He can transition to the hospitalist service. Counseling/ Coordination of Care: Total critical care time spent is 35 minutes. This includes examining the patient, gathering history from someone other than the patient (i.e. chart review), discussing the patient's care with other providers, managing the patient's insulin and IV fluid requirements, ordering and interpreting radiologic studies, ordering and interpreting laboratory values, and documentation. Amount of time is separate from teaching, counseling the patient and/or family, and exclusive of procedures. Code Status: Full
[2018-01-09] MEDS ORDERED: Dextrose 50% in Water 50 ML Vial IV.PUSH PRN (07:45)
--- NOTE | 2018-01-09 12:26 | ECG ---
Date Performed: 01/08/2018 Time Performed: 17:31:29 PTAGE: 52 years EKG: Sinus rhythm VOLTAGE CRITERIA FOR LVH NONSPECIFIC T-WAVE ABNORMALITY BORDERLINE SHORT [place] INTERVAL ABNORMAL ECG Co mpared to PREVIOUS TRACING , there is slight increase in T-wave changes anterolaterally. PREVIOUS T RACIN12/15/2017 11.50 DOCTOR: Marshall Howard Interpretating Date/Time 01/09/2018 12:25:50
[2018-01-09] MEDS: Senna/Docusate Sodium 8.6/50 MG Tablet PO SCH ×2 (12:47→20:04)
[2018-01-09] MEDS: Famotidine 20 MG Tablet PO SCH ×2 (12:47→20:04)
[2018-01-09] MEDS: Enoxaparin Inj 40 MG/0.4 ML Syringe SQ SCH (17:31)
[2018-01-10] MEDS: Chlorhexidine Gluconate 2% 1 Pack (2 Cloths) TOPICAL SCH (03:13)
[2018-01-10 07:45] LABS: Baso % (Auto) 0.1 % (0.0-2.0); Eos % (Auto) 0.9 % (0.0-4.0); Hematocrit 34.9 % (39.0-51.0); Hemoglobin 11.4 gm/dL (13.0-17.0); Lymph # (Auto) 1.1 th/mm3 (1.0-4.8); Lymph % (Auto) 26.8 % (9.0-44.0); Mean Corpuscular HGB Conc 32.7 % (32.0-36.0); Mean Corpuscular Hemoglobin 27.3 pg (27.0-34.0); Mean Corpuscular Volume 83.4 fL (80.0-100.0); Mean Platelet Volume 10.1 fL (7.0-11.0); Mono # (Auto) 0.3 th/mm3 (0.0-0.9); Mono % (Auto) 7.8 % (0.0-8.0); Neut # (Auto) 2.7 th/mm3 (1.8-7.7); Neut % (Auto) 64.4 % (16.0-70.0); Platelet Count 173 th/mm3 (150-450); Red Blood Count 4.19 mil/mm3 (4.50-5.90); Red Cell Distribution Width 14.5 % (11.6-17.2); White Blood Count 4.2 th/mm3 (4.0-11.0)
[2018-01-10 08:29] LABS: Calcium 8.1 mg/dL (8.5-10.1); Carbon Dioxide 28.4 meq/L (21.0-32.0); Potassium 4.7 meq/L (3.5-5.1)
[2018-01-10 08:31] LABS: Magnesium 1.9 mg/dL (1.5-2.5)
[2018-01-10] MEDS ORDERED: Insulin Detemir Inj 1,000 UNIT/10 ML Vial SQ SCH (09:00)
[2018-01-10] MEDS: Insulin NovoLOG Aspart Correctional Sugar Inj SQ SCH ×4 (09:13→20:30)
[2018-01-10] MEDS: Famotidine 20 MG Tablet PO SCH ×2 (09:16→20:29)
[2018-01-10] MEDS: Sod Chloride 0.9% Inj 1,000 ML IV.CONT SCH ×2 (09:16→20:29)
[2018-01-10] MEDS: Senna/Docusate Sodium 8.6/50 MG Tablet PO SCH ×2 (09:17→20:30)
--- NOTE | 2018-01-10 14:19 | P.PNIM ---
Subjective Interval history: Feeling okay. No complaint of chest pain shortness of breath tolerating diet. Urinating without any difficulty. States that he only uses NovoLog at home has not been on any long-acting insulin previously Physical Exam Vital signs: Vital Signs 01/09/18 15:00 01/09/18 15:36 01/09/18 16:00 Temperature 99.0 F Pulse Rate 66 68 61 Respiratory Rate 15 19 17 Blood Pressure 119/87 Pulse Oximetry 95 97 98 01/09/18 17:00 01/09/18 18:00 01/09/18 19:00 Temperature Pulse Rate 77 79 70 Respiratory Rate 18 37 H 20 Blood Pressure Pulse Oximetry 96 98 98 01/09/18 20:00 01/09/18 20:07 01/09/18 21:00 Temperature 98.9 F Pulse Rate 85 75 81 Respiratory Rate 129 H 138 H 126 H Blood Pressure 136/75 Pulse Oximetry 99 96 96 01/09/18 22:00 01/09/18 23:00 01/10/18 00:00 Temperature 98.9 F Pulse Rate 63 75 68 Respiratory Rate 116 H 25 H 20 Blood Pressure Pulse Oximetry 97 98 97 01/10/18 04:00 01/10/18 04:20 01/10/18 06:02 Temperature 98.2 F Pulse Rate 68 73 Respiratory Rate 16 17 Blood Pressure 124/75 Pulse Oximetry 96 01/10/18 08:00 01/10/18 12:00 Temperature 98.8 F 97.8 F Pulse Rate 67 50 L Respiratory Rate 16 16 Blood Pressure 114/72 132/71 Pulse Oximetry 96 98 Intake & Output 01/09/18 01/10/18 01/10/18 18:59 06:59 18:59 Intake Total 950 / 950 1320 / 1320 Output Total 1200 / 1200 500 / 500 Balance -250 / -250 820 / 820 Weight 57.2 kg Intake: Oral 950 / 950 1320 / 1320 Output: Urine 1200 / 1200 500 / 500 Other: # Voids 1 Date of Last Bowel Movement 01/09/18 01/09/18 01/09/18 # Bowel Movements 1 1 Narrative: GENERAL: This is a well-developed patient, in no apparent distress. CARDIOVASCULAR: Regular rate and rhythm RESPIRATORY: Clear to auscultation. Breath sounds equal bilaterally. No wheezes , rales, or rhonchi. GASTROINTESTINAL: Abdomen soft, non-tender, nondistended. Normal active bowel sounds MUSCULOSKELETAL: Extremities without clubbing, cyanosis, or edema. NEURO: Alert & Oriented x4 to person, place, time, situation. Moves all ext x4 Results - Labs CBC & Chem 7: 01/10/18 06:02 01/10/18 08:00 Laboratory Results - last 24 hr 01/09/18 01/09/18 01/09/18 15:37 19:53 22:43 WBC RBC Hgb Hct MCV MCH MCHC RDW Plt Count MPV Neut % (Auto) Lymph % (Auto) [place] % (Auto) Eos % (Auto) Baso % (Auto) Neut # (Auto) Lymph # (Auto) [place] # (Auto) Eos # (Auto) Baso # (Auto) WBC Differential Differential Comment Sodium Potassium Chloride Carbon Dioxide Anion Gap BUN Creatinine Estimated GFR POC Glucose 365 H 429 H 187 H Random Glucose Calcium Magnesium 01/10/18 01/10/18 01/10/18 06:02 06:02 07:34 WBC 4.2 RBC 4.19 L Hgb 11.4 L Hct 34.9 L MCV 83.4 MCH 27.3 MCHC 32.7 RDW 14.5 Plt Count 173 MPV 10.1 Neut % (Auto) 64.4 Lymph % (Auto) 26.8 [place] % (Auto) 7.8 Eos % (Auto) 0.9 Baso % (Auto) 0.1 Neut # (Auto) 2.7 Lymph # (Auto) 1.1 [place] # (Auto) 0.3 Eos # (Auto) 0.0 Baso # (Auto) 0.0 WBC Differential . Differential Comment Auto diff final Sodium 127 L Potassium 4.7 Chloride 92 L D Carbon Dioxide 28.4 Anion Gap 7 BUN 17 Creatinine 1.21 Estimated GFR 76 L POC Glucose Greater than 600 H* Random Glucose 555 H* D Calcium 8.1 L D Magnesium 1.9 01/10/18 01/10/18 08:00 11:17 WBC RBC Hgb Hct MCV MCH MCHC RDW Plt Count MPV Neut % (Auto) Lymph % (Auto) [place] % (Auto) Eos % (Auto) Baso % (Auto) Neut # (Auto) Lymph # (Auto) [place] # (Auto) Eos # (Auto) Baso # (Auto) WBC Differential Differential Comment Sodium Potassium Chloride Carbon Dioxide Anion Gap BUN Creatinine Estimated GFR POC Glucose 421 H Random Glucose 549 H* Calcium Magnesium Assessment and Plan - Plan 52yM presenting history of type 2 diabetes mellitus presents with with hyperosmolar hyperglycemic state, acute kidney injury, dehydration 1. Hyperosmolar hyperglycemic state with a history of type 2 diabetes mellitus , uncontrolled Initially was placed on insulin drip and now we will transition over to subcu insulin Start Levemir in addition to NovoLog Diabetic education Continue ADA diet 2. History of cardiomyopathy with EF 25%, monitor for signs of fluid overload -Continue home ASA for cardiac stent start lisinopril 3. Acute kidney injury with hyperosmolar hyperglycemia This has improved with IV fluid hydration 4. DVT PROPHY: -cindi Lambert
[2018-01-10] MEDS: Enoxaparin Inj 40 MG/0.4 ML Syringe SQ SCH (17:29)
[2018-01-10] MEDS: Lisinopril 5 MG Tablet PO SCH (17:29)
[2018-01-11] MEDS: Chlorhexidine Gluconate 2% 1 Pack (2 Cloths) TOPICAL SCH (04:15)
--- NOTE | 2018-01-11 07:59 | P.PN ---
Subjective Interval history: Patient doing well. Reports tolerating p.o., voiding/stooling well. No overnight events per RN. Physical Exam Vital signs: Vital Signs 01/10/18 08:00 01/10/18 12:00 01/10/18 16:00 Temperature 98.8 F 97.8 F 98.2 F Pulse Rate 67 50 L 63 Respiratory Rate 16 16 16 Blood Pressure 114/72 132/71 138/73 Pulse Oximetry 96 98 97 01/10/18 20:00 01/11/18 00:00 01/11/18 04:00 Temperature 98.0 F 98.3 F Pulse Rate 69 71 54 L Respiratory Rate 18 18 Blood Pressure 101/59 L 121/66 Pulse Oximetry 98 97 01/11/18 04:19 Temperature 98.0 F Pulse Rate 55 L Respiratory Rate 18 Blood Pressure 118/77 Pulse Oximetry 97 Intake & Output 01/10/18 01/11/18 01/11/18 18:59 06:59 18:59 Intake Total 1140 / 1140 2560 / 2560 Output Total 925 / 925 Balance 1140 / 1140 1635 / 1635 Weight 57.3 kg Intake: IV 1600 / 1600 NS Inj 1,000 ML @ 100 mls/hr IV 1600 / 1600 .CONT .Q10H [facility] Rx#:[id number] Oral 1140 / 1140 960 / 960 Output: Urine 925 / 925 Other: # Voids 4 1 Date of Last Bowel Movement 01/09/18 01/10/18 # Bowel Movements 1 Narrative: GENERAL: Thin -Malawian male, in no acute distress, resting comfortably CARDIOVASCULAR: Regular rate and rhythm, S1 and S2. No murmurs, rubs, or gallops RESPIRATORY: Clear to auscultation x2. No wheezes, rales, or rhonchi. GASTROINTESTINAL: Abdomen soft, non-tender, nondistended. Normal active bowel sounds MUSCULOSKELETAL: Extremities without clubbing, cyanosis, or edema. NEURO: AAOX3, motor system 5/5 x4, no focal deficit EXT: no edema Results - Labs CBC & Chem 7: 01/10/18 06:02 01/10/18 08:00 Laboratory Results - last 24 hr 01/10/18 01/10/18 01/10/18 06:02 08:00 11:17 Sodium 127 L Potassium 4.7 Chloride 92 L D Carbon Dioxide 28.4 Anion Gap 7 BUN 17 Creatinine 1.21 Estimated GFR 76 L POC Glucose 421 H Random Glucose 555 H* D 549 H* Calcium 8.1 L D Magnesium 1.9 01/10/18 01/10/18 01/10/18 16:27 20:12 22:16 Sodium Potassium Chloride Carbon Dioxide Anion Gap BUN Creatinine Estimated GFR POC Glucose 130 H 451 H* 390 H Random Glucose Calcium Magnesium Assessment and Plan - Plan 52 y/o M with PMHx of Type 2 Diabetes Mellitus admitted for inpatient management of hyperosmolar hyperglycemic state, acute kidney injury, and dehydration, HD#4 1. Hyperosmolar Hyperglycemic State with Hx of DM Type II s/p Insulin drip Blood sugars poorly controlled: 280, 390, 421 Patient is on Detemir 14U QD, transition to Detemir 16 units BID and cont. SSI Diabetic education Continue ADA diet Checking Hemoglobin A1c today 2. History of Cardiomyopathy with EF 25% Monitor for signs of fluid overload Continue home ASA for cardiac stent and Lisinopril 3. Acute kidney injury with hyperosmolar hyperglycemia Resolved s/p IVF's Follow-up BMP this AM 4. DVT PROPHY: Cont. SCD's, Lovenox 5. GI PPX: cont. Pepcid 6. DISPO: awaiting BMP this AM. cont. to monitor BS now that Detemir adjusted, F/U Hgb A1c ordered today Code Status: full Discussed Condition With: patient, RN, CM
[2018-01-11] MEDS: Insulin NovoLOG Aspart Correctional Sugar Inj SQ SCH ×4 (08:09→21:32)
[2018-01-11] MEDS: Senna/Docusate Sodium 8.6/50 MG Tablet PO SCH ×2 (08:26→21:31)
[2018-01-11] MEDS: Famotidine 20 MG Tablet PO SCH ×2 (08:26→21:31)
[2018-01-11] MEDS: Lisinopril 5 MG Tablet PO SCH (08:27)
[2018-01-11] MEDS: Insulin Detemir Inj 1,000 UNIT/10 ML Vial SQ SCH ×2 (08:48→21:32)
[2018-01-11 09:35] LABS: Anion Gap 8 meq/L (5-15); Blood Urea Nitrogen 10 mg/dL (7-18); Calcium 7.2 mg/dL (8.5-10.1); Carbon Dioxide 24.9 meq/L (21.0-32.0); Chloride 101 meq/L (98-107); Glomerular Filtration Rate Greater Than 89 mL/min (>89); Glucose,Random 292 mg/dL (74-106); Sodium 134 meq/L (136-145)
[2018-01-11] MEDS: Enoxaparin Inj 40 MG/0.4 ML Syringe SQ SCH (17:14)
--- NOTE | 2018-01-11 18:16 | P.PN ---
Subjective Interval history: NOT SEEN Physical Exam Vital signs: Vital Signs 01/10/18 20:00 01/11/18 00:00 01/11/18 04:00 Temperature 98.0 F 98.3 F Pulse Rate 69 71 54 L Respiratory Rate 18 18 Blood Pressure 101/59 L 121/66 Pulse Oximetry 98 97 01/11/18 04:19 01/11/18 08:00 01/11/18 12:00 Temperature 98.0 F 97.3 F L 98 F Pulse Rate 55 L 55 L 55 L Respiratory Rate 18 16 16 Blood Pressure 118/77 123/83 115/70 Pulse Oximetry 97 98 99 01/11/18 16:00 Temperature 98 F Pulse Rate 60 Respiratory Rate 16 Blood Pressure 113/68 Pulse Oximetry 99 Intake & Output 01/10/18 01/11/18 01/11/18 18:59 06:59 18:59 Intake Total 1140 / 1140 2560 / 2560 400 / 400 Output Total 925 / 925 800 / 800 Balance 1140 / 1140 1635 / 1635 -400 / -400 Weight 57.3 kg Intake: IV 1600 / 1600 400 / 400 NS Inj 1,000 ML @ 100 mls/hr IV 1600 / 1600 400 / 400 .CONT .Q10H [facility] Rx#:[id number] Oral 1140 / 1140 960 / 960 Output: Urine 925 / 925 800 / 800 Other: # Voids 4 1 Date of Last Bowel Movement 01/09/18 01/10/18 01/11/18 # Bowel Movements 1 Narrative: GENERAL: Thin -[place] Islander male, in no acute distress, resting comfortably CARDIOVASCULAR: Regular rate and rhythm, S1 and S2. No murmurs, rubs, or gallops RESPIRATORY: Clear to auscultation x2. No wheezes, rales, or rhonchi. GASTROINTESTINAL: Abdomen soft, non-tender, nondistended. Normal active bowel sounds MUSCULOSKELETAL: Extremities without clubbing, cyanosis, or edema. NEURO: AAOX3, motor system 5/5 x4, no focal deficit EXT: no edema Results - Labs CBC & Chem 7: 01/10/18 06:02 01/11/18 08:46 Laboratory Results - last 24 hr 01/10/18 01/10/18 01/11/18 20:12 22:16 07:56 Sodium Potassium Chloride Carbon Dioxide Anion Gap BUN Creatinine Estimated GFR POC Glucose 451 H* 390 H 280 H Random Glucose Calcium Prot Corrected Calcium Total Protein 01/11/18 01/11/18 01/11/18 08:46 11:48 16:47 Sodium 134 L Potassium 4.0 Chloride 101 D Carbon Dioxide 24.9 Anion Gap 8 BUN 10 Creatinine 0.86 Estimated GFR Greater than 89 POC Glucose 315 H 131 H Random Glucose 292 H D Calcium 7.2 L* D Prot Corrected Calcium 8.3 L Total Protein 5.0 L - Imaging ITS Impressions Chest X-Ray 01/08/18 00:00 CONCLUSION: No acute cardiopulmonary disease. - Procedures none Assessment and Plan - Plan 52 y/o M with PMHx of Type 2 Diabetes Mellitus admitted for inpatient management of hyperosmolar hyperglycemic state, acute kidney injury, and dehydration 1. Hyperosmolar Hyperglycemic State with Hx of DM Type II s/p Insulin drip Blood sugars poorly controlled: 280, 390, 421 Patient is on Detemir 14U QD, transition to Detemir 16 units BID and cont. SSI Diabetic education Continue ADA diet Checking Hemoglobin A1c today 2. History of Cardiomyopathy with EF 25% Monitor for signs of fluid overload Continue home ASA for cardiac stent and Lisinopril Unable to start BB 2/2 baseline chiqui 3. Acute kidney injury with hyperosmolar hyperglycemia Resolved s/p IVF's Follow-up BMP this AM 4. DVT PROPHY: Cont. SCD's, Lovenox 5. GI PPX: cont. Pepcid
[2018-01-11] MEDS: Mupirocin 2% Nasal Oint Topical Syringe EACH NARE SCH (21:31)
[2018-01-12] MEDS: Chlorhexidine Gluconate 2% 1 Pack (2 Cloths) TOPICAL SCH (03:46)
[2018-01-12 05:17] LABS: Baso % (Auto) 0.5 % (0.0-2.0); Eos # (Auto) 0.1 th/mm3 (0.0-0.4); Eos % (Auto) 2.4 % (0.0-4.0); Hematocrit 36.6 % (39.0-51.0); Hemoglobin 11.9 gm/dL (13.0-17.0); Lymph % (Auto) 40.9 % (9.0-44.0); Mean Corpuscular HGB Conc 32.5 % (32.0-36.0); Mean Corpuscular Hemoglobin 27.2 pg (27.0-34.0); Mean Corpuscular Volume 83.5 fL (80.0-100.0); Mean Platelet Volume 10.1 fL (7.0-11.0); Mono # (Auto) 0.4 th/mm3 (0.0-0.9); Neut # (Auto) 2.3 th/mm3 (1.8-7.7); Neut % (Auto) 47.2 % (16.0-70.0); Platelet Count 194 th/mm3 (150-450); Red Blood Count 4.39 mil/mm3 (4.50-5.90); Red Cell Distribution Width 14.9 % (11.6-17.2); White Blood Count 4.8 th/mm3 (4.0-11.0)
[2018-01-12 05:57] LABS: Alanine Aminotransferase 92 U/L (12-78); Albumin 2.6 g/dL (3.4-5.0); Alkaline Phosphatase 57 U/L (45-117); Anion Gap 9 meq/L (5-15); Aspartate Aminotransferase 70 U/L (15-37); Blood Urea Nitrogen 13 mg/dL (7-18); Calcium 8.6 mg/dL (8.5-10.1); Carbon Dioxide 27.9 meq/L (21.0-32.0); Chloride 100 meq/L (98-107); Glomerular Filtration Rate Greater Than 89 mL/min (>89); Glucose,Random 79 mg/dL (74-106); Potassium 3.9 meq/L (3.5-5.1); Sodium 137 meq/L (136-145); Total Protein 5.8 g/dL (6.4-8.2)
[2018-01-12] MEDS: Lisinopril 5 MG Tablet PO SCH (08:46)
[2018-01-12] MEDS: Famotidine 20 MG Tablet PO SCH (08:52)
[2018-01-12] MEDS: Insulin NovoLOG Aspart Correctional Sugar Inj SQ SCH ×2 (08:52→12:30)
[2018-01-12] MEDS: Senna/Docusate Sodium 8.6/50 MG Tablet PO SCH (08:52)
[2018-01-12] MEDS: Insulin Detemir Inj 1,000 UNIT/10 ML Vial SQ SCH (08:53)
[2018-01-12] MEDS: Mupirocin 2% Nasal Oint Topical Syringe EACH NARE SCH (08:53)
--- NOTE | 2018-01-12 10:29 | P.PN ---
Subjective Interval history: F/U DM. Patient doing well wants to go home. Latest A1c 14 10/14 Physical Exam Vital signs: Vital Signs 01/11/18 12:00 01/11/18 16:00 01/11/18 20:00 Temperature 98 F 98 F 98.7 F Pulse Rate 55 L 60 66 Respiratory Rate 16 16 18 Blood Pressure 115/70 113/68 111/70 Pulse Oximetry 99 99 99 01/12/18 00:00 01/12/18 04:00 01/12/18 07:53 Temperature 97.4 F L 97.1 F L 98.1 F Pulse Rate 64 48 L 60 Respiratory Rate 16 16 17 Blood Pressure 113/60 101/66 96/69 L Pulse Oximetry 99 99 100 Intake & Output 01/11/18 01/12/18 01/12/18 18:59 06:59 18:59 Intake Total 1800 / 1800 Output Total 800 / 800 Balance 1000 / 1000 Intake: IV 400 / 400 NS Inj 1,000 ML @ 100 mls/hr IV 400 / 400 .CONT .Q10H [facility] Rx#:[id number] Oral 1400 / 1400 Output: Urine 800 / 800 Other: # Voids 5 Date of Last Bowel Movement 01/11/18 01/11/18 Narrative: GENERAL: Thin -[place]ian male, in no acute distress, resting comfortably CARDIOVASCULAR: Regular rate and rhythm, S1 and S2. No murmurs, rubs, or gallops RESPIRATORY: Clear to auscultation x2. No wheezes, rales, or rhonchi. GASTROINTESTINAL: Abdomen soft, non-tender, nondistended. Normal active bowel sounds MUSCULOSKELETAL: Extremities without clubbing, cyanosis, or edema. NEURO: AAOX3, motor system 5/5 x4, no focal deficit EXT: no edema Results - Labs CBC & Chem 7: 01/12/18 03:56 01/12/18 03:56 Laboratory Results - last 24 hr 01/11/18 01/11/18 01/11/18 11:48 16:47 19:52 WBC RBC Hgb Hct MCV MCH MCHC RDW Plt Count MPV Neut % (Auto) Lymph % (Auto) [place] % (Auto) Eos % (Auto) Baso % (Auto) Neut # (Auto) Lymph # (Auto) [place] # (Auto) Eos # (Auto) Baso # (Auto) WBC Differential Differential Comment Sodium Potassium Chloride Carbon Dioxide Anion Gap BUN Creatinine Estimated GFR POC Glucose 315 H 131 H 333 H Random Glucose Calcium Total Bilirubin AST ALT Alkaline Phosphatase Total Protein Albumin 01/12/18 01/12/18 01/12/18 03:56 03:56 08:44 WBC 4.8 RBC 4.39 L Hgb 11.9 L Hct 36.6 L MCV 83.5 MCH 27.2 MCHC 32.5 RDW 14.9 Plt Count 194 MPV 10.1 Neut % (Auto) 47.2 Lymph % (Auto) 40.9 [place] % (Auto) 9.0 H Eos % (Auto) 2.4 Baso % (Auto) 0.5 Neut # (Auto) 2.3 Lymph # (Auto) 2.0 [place] # (Auto) 0.4 Eos # (Auto) 0.1 Baso # (Auto) 0.0 WBC Differential . Differential Comment Auto diff final Sodium 137 Potassium 3.9 Chloride 100 Carbon Dioxide 27.9 Anion Gap 9 BUN 13 Creatinine 0.91 Estimated GFR Greater than 89 POC Glucose 200 H Random Glucose 79 D Calcium 8.6 D Total Bilirubin 0.4 AST 70 H ALT 92 H Alkaline Phosphatase 57 Total Protein 5.8 L D Albumin 2.6 L - Procedures none Assessment and Plan - Plan 52 y/o M with PMHx of Type 2 Diabetes Mellitus admitted for inpatient management of hyperosmolar hyperglycemic state, acute kidney injury, and dehydration 1. Hyperosmolar Hyperglycemic State with Hx of DM Type II secondary to noncompliance s/p Insulin drip Blood sugars improving Ct Detemir 16 units BID and SSI. Patient was already discharged this morning but fingerstick over 300 before lunch, patient is asymptomatic. He did not want to stay and walked out. Diabetic education Continue ADA diet Rpt Hemoglobin A1c pending 2. History of Cardiomyopathy with EF 25% Monitor for signs of fluid overload Continue home ASA for cardiac stent and Lisinopril Unable to start BB 2/2 baseline chiqui 3. Acute kidney injury with hyperosmolar hyperglycemia Resolved s/p IVF's Follow-up BMP this AM 4. DVT PROPHY: Cont. SCD's, Lovenox 5. GI PPX: cont. Pepcid
--- NOTE | 2018-01-12 15:20 | P.DS ---
Date of admission: 01/08/18 16:54 Primary care physician: No Primary Care Physician Brief History from admission: 52yM presenting with hyperglycemia. The patient has a history of diabetes but says that he is currently homeless, his son went to [place] a few days ago, and he has no means to get his medications. He has not taken any of his diabetes medications for 3-4 days, and reports that 2 days ago he began to have increased thirst, increased urination, and nausea. He presented to the ED today because "I can feel when my sugar is too high". He has had multiple admissions for hyperglycemia, acute kidney injury, and dehydration in the past. History of DM, CHF with EF of 25%, substance abuse (specifically crack cocaine use), CAD s/p stent, and chronic kidney disease. Family history is significant for mother with diabetes. DS: Medications - Discharge Medications Prescriptions: insulin detemir U-100 [Levemir U-100 Insulin] 16 unit SUBCUT BID #20 ml mupirocin calcium [Bactroban Nasal] 1 applicatio INTRANASAL BID #1 g DS: Summary Hospital Course: 52 y/o M with PMHx of Type 2 Diabetes Mellitus admitted for inpatient management of hyperosmolar hyperglycemic state, acute kidney injury, and dehydration 1. Hyperosmolar Hyperglycemic State with Hx of DM Type II secondary to noncompliance s/p Insulin drip Blood sugars improving Ct Detemir 16 units BID and SSI. Patient was already discharged this morning but fingerstick over 300 before lunch, patient is asymptomatic. He did not want to stay and walked out. Diabetic education Continue ADA diet Rpt Hemoglobin A1c pending 2. History of Cardiomyopathy with EF 25%. Compensated Monitor for signs of fluid overload Continue home ASA for cardiac stent and Lisinopril. Because of low normal BP, will decrease Lasix and lisinopril Unable to start BB 2/2 baseline chiqui 3. Acute kidney injury with hyperosmolar hyperglycemia Resolved s/p IVF's Follow-up BMP this AM 4. DVT PROPHY: Cont. SCD's, Lovenox 5. GI PPX: cont. Pepcid - Time Spent with Patient Total time spent providing and/or coordinating discharge services: Greater than 30 minutes - Quality: VTE Deep Vein Thrombosis/Pulmonary Embolism Present on Admission: No Exam Vital signs: Vital Signs 01/11/18 16:00 01/11/18 20:00 01/12/18 00:00 Temperature 98 F 98.7 F 97.4 F L Pulse Rate 60 66 64 Respiratory Rate 16 18 16 Blood Pressure 113/68 111/70 113/60 Pulse Oximetry 99 99 99 01/12/18 04:00 01/12/18 07:53 Temperature 97.1 F L 98.1 F Pulse Rate 48 L 60 Respiratory Rate 16 17 Blood Pressure 101/66 96/69 L Pulse Oximetry 99 100 Intake & Output 01/11/18 01/12/18 01/12/18 18:59 06:59 18:59 Intake Total 1800 / 1800 Output Total 800 / 800 Balance 1000 / 1000 Intake: IV 400 / 400 NS Inj 1,000 ML @ 100 mls/hr IV 400 / 400 .CONT .Q10H [facility] Rx#:[id number] Oral 1400 / 1400 Output: Urine 800 / 800 Other: # Voids 5 Date of Last Bowel Movement 01/11/18 01/11/18 Narrative: GENERAL: Thin -[place]ian male, in no acute distress, resting comfortably CARDIOVASCULAR: Regular rate and rhythm, S1 and S2. No murmurs, rubs, or gallops RESPIRATORY: Clear to auscultation x2. No wheezes, rales, or rhonchi. GASTROINTESTINAL: Abdomen soft, non-tender, nondistended. Normal active bowel sounds MUSCULOSKELETAL: Extremities without clubbing, cyanosis, or edema. NEURO: AAOX3, motor system 5/5 x4, no focal deficit EXT: no edema Results Procedures completed during hospitalization: none Labs on day of discharge: Labs from last 24 hours 01/12/18 01/12/18 01/12/18 12:18 08:44 03:56 WBC RBC Hgb Hct MCV MCH MCHC RDW Plt Count MPV Neut % (Auto) Lymph % (Auto) [place] % (Auto) Eos % (Auto) Baso % (Auto) Neut # (Auto) Lymph # (Auto) [place] # (Auto) Eos # (Auto) Baso # (Auto) WBC Differential Differential Comment Sodium 137 Potassium 3.9 Chloride 100 Carbon Dioxide 27.9 Anion Gap 9 BUN 13 Creatinine 0.91 Estimated GFR Greater than 89 POC Glucose 383 H 200 H Random Glucose 79 D Calcium 8.6 D Total Bilirubin 0.4 AST 70 H ALT 92 H Alkaline Phosphatase 57 Total Protein 5.8 L D Albumin 2.6 L 01/12/18 01/11/18 01/11/18 03:56 19:52 16:47 WBC 4.8 RBC 4.39 L Hgb 11.9 L Hct 36.6 L MCV 83.5 MCH 27.2 MCHC 32.5 RDW 14.9 Plt Count 194 MPV 10.1 Neut % (Auto) 47.2 Lymph % (Auto) 40.9 [place] % (Auto) 9.0 H Eos % (Auto) 2.4 Baso % (Auto) 0.5 Neut # (Auto) 2.3 Lymph # (Auto) 2.0 [place] # (Auto) 0.4 Eos # (Auto) 0.1 Baso # (Auto) 0.0 WBC Differential . Differential Comment Auto diff final Sodium Potassium Chloride Carbon Dioxide Anion Gap BUN Creatinine Estimated GFR POC Glucose 333 H 131 H Random Glucose Calcium Total Bilirubin AST ALT Alkaline Phosphatase Total Protein Albumin - Impressions ITS Impressions Chest X-Ray 01/08/18 00:00 CONCLUSION: No acute cardiopulmonary disease. Discharge Plan - Discharge Disposition Patient Disposition: 01 Discharge Home - Discharge Condition Condition: Stable - Discharge Order Discharge Orders: Discharge Order (Routine); Ordered 01/12/18 Ordered By: Sean Louis - Physicians Team Primary Care Provider: Primary Care Radha Gabriel Attending Provider: Sean Louis Other Providers: Kaci Luque DO
[2018-01-18 07:27] LABS: Hemoglobin A1c Greater Than 14.0 % (4.3-6.0)
== END 2018-01-12 14:14 | disposition home or self-care (01) ==
LOC: NEPC 14:21 → NEDA 16:54 → HIMC 19:35 → N06 01-10 02:03
PROVIDERS: ADMIT Internal Medicine; ATTEND Internal Medicine

== ENCOUNTER 2018-02-19 13:39 | Inpatient (IN) ==
--- NOTE | 2018-02-19 14:11 | ED ---
HPI General Chief complaint: Respiratory Symptoms Stated complaint: SOB Time Seen by Provider: 02/19/18 13:55 Source: patient Mode of arrival: ambulatory Limitations: no limitations History of Present Illness HPI narrative: 52 YO M with PMH of CHF, CAD s/p stent, CKD, DM, Hep C, cocaine abuse, noncompliance presents to the ED for evaluation of SOB and left arm wound. SOB came on gradually. Patient denies CP,cough, LE edema. He complains of a wound of the left forearm. He states that the area was caused by an IV. He endorses aching pain at the site, rate 7/10 maximally. No alleviating or exacerbating factors reported. He denies fever, chills, numbness, tingling, weakness, limited ROM of the extremity. He states "I ate a lot of good food yesterday." He states that he last checked his blood glucose 2 days ago. He has not been compliant with any medications. He denies cigarette smoking, recent substance abuse. Related Data Home Medications Medication Instructions Recorded Confirmed insulin aspart U-100 [Novolog 1 sliding scale dose SUB-Q TID 12/15/17 02/19/18 U-100 Insulin aspart] carvedilol [Coreg] 3.125 mg PO BID 02/19/18 02/19/18 metformin 500 mg PO BID 02/19/18 02/19/18 Previous Rx's Medication Instructions Recorded aspirin 81 mg PO DAILY #30 tab 10/09/17 glimepiride 1 mg PO DAILY #30 tab 12/15/17 furosemide 10 mg PO DAILY #30 tab 01/12/18 insulin detemir U-100 [Levemir 16 unit SUBCUT BID #20 ml 01/12/18 U-100 Insulin] lisinopril 2.5 mg PO DAILY #15 tab 01/12/18 Allergies Allergy/AdvReac Type Severity Reaction Status Date / Time No Known Allergies Allergy Verified 02/23/18 10:54 Review of Systems ROS: all other systems reviewed are negative FOR[facility]LY [facility] Social History Social History Substance History: Active Abuse Second Hand Smoke Exposure: Yes Smoking Status: Former smoker Tobacco Type: Cigarettes How Often Do You Have a Drink Containing Alcohol: Never Recent Travel in [facility] within the Last 8 Weeks: No Recent Out of Country Travel within the Last 8 Weeks: No Immunization History Tetanus Immunization: Unsure Exam Narrative Exam Narrative: GENERAL: Thin AA male in NAD. SKIN: Focused skin assessment warm/dry.There is a 1.5cm coin shaped defect on the anterior aspect of the left forearm. Localized erythema. Mild TTP. NO warmth , induration, fluctuance, crepitus noted. HEAD: Atraumatic. Normocephalic. EYES: Pupils equal and round. No scleral icterus. No injection or drainage. ENT: No nasal bleeding or discharge. Mucous membranes pink and moist. NECK: Trachea midline. No JVD. CARDIOVASCULAR: Regular rate and rhythm. No murmur appreciated. RESPIRATORY: No accessory muscle use. Clear to auscultation. Breath sounds equal bilaterally. GASTROINTESTINAL: Abdomen soft, non-tender, nondistended. Hepatic and splenic margins not palpable. MUSCULOSKELETAL: No obvious deformities. No clubbing. No cyanosis. No edema. FOCUSED LEFT UPPER EXTREMITY EXAM: Patient retains fulls, active, painless ROM of the entire extremity. Neurovascularly intact distally. NEUROLOGICAL: Awake and alert. No obvious cranial nerve deficits. Motor grossly within normal limits. Normal speech. PSYCHIATRIC: Appropriate mood and affect; insight and judgment normal. Course Initial Documented Vital Signs Temperature 98.4 F 02/19/18 13:44 Pulse Rate 89 02/19/18 13:44 Respiratory Rate 18 02/19/18 13:44 Blood Pressure 155/78 H 02/19/18 13:44 Pulse Oximetry 97 02/19/18 13:44 Last Documented Vital Signs Temperature 98.6 F 02/22/18 12:00 Pulse Rate 65 02/22/18 12:00 Respiratory Rate 16 02/22/18 12:00 Blood Pressure 125/69 02/22/18 12:00 Pulse Oximetry 97 02/22/18 12:00 Medical Decision Making MARICRUZ Attestation MARICRUZ supervised visit: Yes Attestation: I, Dr. Arambula, have reviewed the advance practice practitioner's documentation and am in agreement, met with the patient face to face, made the diagnosis, and the medical decision making was done by me. *My assessment and Findings: Patient is a 52 year old male who comes in complaining of shortness of breath and a wound to his arm. Exam shows a wound to the left forearm, no surrounding erythema or warmth. Patient's labs show elevated glucose. Given IVF and insulin. Will require admission. MDM Narrative Medical decision making narrative: 52 YO M with PMH of CHF, CAD s/p stent, CKD, DM, Hep C, cocaine abuse, noncompliance presents to the ED for evaluation of SOB and left arm wound. SOB came on gradually. Patient denies CP,cough, LE edema. Vitals reviewed. On physical exam the patient's thin, in no acute distress. There is a 1-1/2 cm coin shaped growth on the anterior aspect of the left forearm. Patient is functionally and neurovascular intact in that extremity. IV was established. Patient was administered a liter normal saline. Initial fingerstick blood glucose reading over 600. Lab work reveals blood glucose 950. CO2 28.1. Potassium 4.1. Na 129, BUN 26, creatinine 1.46. BNP 308. Drug screen positive for cocaine. Patient was administered a second liter of normal saline and 6 units of insulin. On recheck blood glucose 558. Patient was administered an additional 3 units of insulin. I discussed the findings with the patient. He is agreeable to observation admission. I spoke with MARICRUZ Prajapati with Dr. Jalloh, who agrees to accept the patient to the medicine service. Please see medicine notes for disposition. Medical Screen Exam Complete: Yes Emergency Medical Condition: Yes Differential Diagnosis Differential Diagnosis: hyperglycemia versus CHF exacerbation versus metabolic derangement versus HHS versus DKA versus other Lab Data Result diagrams: 02/19/18 14:09 02/21/18 20:37 Lab Results 02/19/18 02/19/18 02/19/18 Range/Units 14:04 14:09 14:09 WBC 4.2 (4.0-11.0) th/mm3 RBC 3.69 L (4.50-5.90) mil/mm3 Hgb 10.8 L (13.0-17.0) gm/dL Hct 33.3 L (39.0-51.0) % MCV 90.1 (80.0-100.0) fL MCH 29.2 (27.0-34.0) pg MCHC 32.4 (32.0-36.0) % RDW 13.8 (11.6-17.2) % Plt Count 180 (150-450) th/mm3 MPV 9.8 (7.0-11.0) fL Neut % (Auto) 70.2 H (16.0-70.0) % Lymph % (Auto) 19.5 (9.0-44.0) % [place] % (Auto) 9.1 H (0.0-8.0) % Eos % (Auto) 0.9 (0.0-4.0) % Baso % (Auto) 0.3 (0.0-2.0) % Neut # (Auto) 2.9 (1.8-7.7) th/mm3 Lymph # (Auto) 0.8 L (1.0-4.8) th/mm3 [place] # (Auto) 0.4 (0.0-0.9) th/mm3 Eos # (Auto) 0.0 (0.0-0.4) th/mm3 Baso # (Auto) 0.0 (0.0-0.2) th/mm3 WBC Differential . Differential Comment Auto diff final PT 10.2 (9.8-11.6) sec INR 1.0 Ratio Sodium (136-145) meq/L Potassium (3.5-5.1) meq/L Chloride (98-107) meq/L Carbon Dioxide (21.0-32.0) meq/L Anion Gap (5-15) meq/L BUN (7-18) mg/dL Creatinine (0.60-1.30) mg/dL Estimated GFR (>89) mL/min POC Glucose Greater than 600 H* (68-110) mg/dl Random Glucose (74-106) mg/dL Calcium (8.5-10.1) mg/dL Magnesium (1.5-2.5) mg/dL Total Bilirubin (0.2-1.0) mg/dL AST (15-37) U/L ALT (12-78) U/L Alkaline Phosphatase (45-117) U/L Troponin I (0.02-0.05) ng/mL B-Natriuretic Peptide (0-100) pg/mL Total Protein (6.4-8.2) g/dL Albumin (3.4-5.0) g/dL Urine Color (Yellw/Straw) Urine Clarity (Clear) Urine pH (5.0-8.5) Ur Specific [place] (1.002-1.035) Urine Protein (Neg-Trace) mg/dL Urine Glucose (UA) (Negative) mg/dL Urine Ketones (Negative) mg/dL Urine Occult Blood (Negative) Urine Nitrate (Negative) Urine Bilirubin (Negative) Urine Urobilinogen (Less than 2) mg/dL Ur Leukocyte Esterase (Negative) Micro UA Comment Ur Microscopic Review Urine Culture Comments Urine Opiates Screen (Neg) Ur Barbiturates Screen (Neg) Ur Amphetamines Screen (Neg) U Benzodiazepines Scrn (Neg) Urine Cocaine Screen (Neg) U Cannabinoids Screen (Neg) 02/19/18 02/19/18 02/19/18 Range/Units 14:09 14:09 14:40 WBC (4.0-11.0) th/mm3 RBC (4.50-5.90) mil/mm3 Hgb (13.0-17.0) gm/dL Hct (39.0-51.0) % MCV (80.0-100.0) fL MCH (27.0-34.0) pg MCHC (32.0-36.0) % RDW (11.6-17.2) % Plt Count (150-450) th/mm3 MPV (7.0-11.0) fL Neut % (Auto) (16.0-70.0) % Lymph % (Auto) (9.0-44.0) % [place] % (Auto) (0.0-8.0) % Eos % (Auto) (0.0-4.0) % Baso % (Auto) (0.0-2.0) % Neut # (Auto) (1.8-7.7) th/mm3 Lymph # (Auto) (1.0-4.8) th/mm3 [place] # (Auto) (0.0-0.9) th/mm3 Eos # (Auto) (0.0-0.4) th/mm3 Baso # (Auto) (0.0-0.2) th/mm3 WBC Differential Differential Comment PT (9.8-11.6) sec INR Ratio Sodium 129 L (136-145) meq/L Potassium 4.1 (3.5-5.1) meq/L Chloride 92 L (98-107) meq/L Carbon Dioxide 28.1 (21.0-32.0) meq/L Anion Gap 9 (5-15) meq/L BUN 26 H (7-18) mg/dL Creatinine 1.46 H (0.60-1.30) mg/dL Estimated GFR 61 L (>89) mL/min POC Glucose (68-110) mg/dl Random Glucose 950 H* (74-106) mg/dL Calcium 8.3 L (8.5-10.1) mg/dL Magnesium (1.5-2.5) mg/dL Total Bilirubin 0.4 (0.2-1.0) mg/dL AST 106 H (15-37) U/L ALT 127 H (12-78) U/L Alkaline Phosphatase 96 (45-117) U/L Troponin I Less than 0.02 L (0.02-0.05) ng/mL B-Natriuretic Peptide 308 H (0-100) pg/mL Total Protein 6.5 (6.4-8.2) g/dL Albumin 3.1 L (3.4-5.0) g/dL Urine Color (Yellw/Straw) Urine Clarity (Clear) Urine pH (5.0-8.5) Ur Specific [place] (1.002-1.035) Urine Protein (Neg-Trace) mg/dL Urine Glucose (UA) (Negative) mg/dL Urine Ketones (Negative) mg/dL Urine Occult Blood (Negative) Urine Nitrate (Negative) Urine Bilirubin (Negative) Urine Urobilinogen (Less than 2) mg/dL Ur Leukocyte Esterase (Negative) Micro UA Comment Ur Microscopic Review Urine Culture Comments Urine Opiates Screen Neg (Neg) Ur Barbiturates Screen Neg (Neg) Ur Amphetamines Screen Neg (Neg) U Benzodiazepines Scrn Neg (Neg) Urine Cocaine Screen Pos H (Neg) U Cannabinoids Screen Neg (Neg) 02/19/18 02/19/18 02/19/18 Range/Units 14:40 16:16 17:17 WBC (4.0-11.0) th/mm3 RBC (4.50-5.90) mil/mm3 Hgb (13.0-17.0) gm/dL Hct (39.0-51.0) % MCV (80.0-100.0) fL MCH (27.0-34.0) pg MCHC (32.0-36.0) % RDW (11.6-17.2) % Plt Count (150-450) th/mm3 MPV (7.0-11.0) fL Neut % (Auto) (16.0-70.0) % Lymph % (Auto) (9.0-44.0) % [place] % (Auto) (0.0-8.0) % Eos % (Auto) (0.0-4.0) % Baso % (Auto) (0.0-2.0) % Neut # (Auto) (1.8-7.7) th/mm3 Lymph # (Auto) (1.0-4.8) th/mm3 [place] # (Auto) (0.0-0.9) th/mm3 Eos # (Auto) (0.0-0.4) th/mm3 Baso # (Auto) (0.0-0.2) th/mm3 WBC Differential Differential Comment PT (9.8-11.6) sec INR Ratio Sodium (136-145) meq/L Potassium (3.5-5.1) meq/L Chloride (98-107) meq/L Carbon Dioxide (21.0-32.0) meq/L Anion Gap (5-15) meq/L BUN (7-18) mg/dL Creatinine (0.60-1.30) mg/dL Estimated GFR (>89) mL/min POC Glucose Greater than 600 H* 558 H* (68-110) mg/dl Random Glucose (74-106) mg/dL Calcium (8.5-10.1) mg/dL Magnesium (1.5-2.5) mg/dL Total Bilirubin (0.2-1.0) mg/dL AST (15-37) U/L ALT (12-78) U/L Alkaline Phosphatase (45-117) U/L Troponin I (0.02-0.05) ng/mL B-Natriuretic Peptide (0-100) pg/mL Total Protein (6.4-8.2) g/dL Albumin (3.4-5.0) g/dL Urine Color Colorless (Yellw/Straw) Urine Clarity Clear (Clear) Urine pH 7.0 (5.0-8.5) Ur Specific [place] 1.024 (1.002-1.035) Urine Protein Negative (Neg-Trace) mg/dL Urine Glucose (UA) 500 or greater (Negative) mg/dL Urine Ketones Negative (Negative) mg/dL Urine Occult Blood Negative (Negative) Urine Nitrate Negative (Negative) Urine Bilirubin Negative (Negative) Urine Urobilinogen Less than 2 (Less than 2) mg/dL Ur Leukocyte Esterase Negative (Negative) Micro UA Comment Culture not ind Ur Microscopic Review Not Reportable Urine Culture Comments Culture not ind Urine Opiates Screen (Neg) Ur Barbiturates Screen (Neg) Ur Amphetamines Screen (Neg) U Benzodiazepines Scrn (Neg) Urine Cocaine Screen (Neg) U Cannabinoids Screen (Neg) 02/19/18 02/19/18 02/19/18 Range/Units 18:12 20:20 20:26 WBC (4.0-11.0) th/mm3 RBC (4.50-5.90) mil/mm3 Hgb (13.0-17.0) gm/dL Hct (39.0-51.0) % MCV (80.0-100.0) fL MCH (27.0-34.0) pg MCHC (32.0-36.0) % RDW (11.6-17.2) % Plt Count (150-450) th/mm3 MPV (7.0-11.0) fL Neut % (Auto) (16.0-70.0) % Lymph % (Auto) (9.0-44.0) % [place] % (Auto) (0.0-8.0) % Eos % (Auto) (0.0-4.0) % Baso % (Auto) (0.0-2.0) % Neut # (Auto) (1.8-7.7) th/mm3 Lymph # (Auto) (1.0-4.8) th/mm3 [place] # (Auto) (0.0-0.9) th/mm3 Eos # (Auto) (0.0-0.4) th/mm3 Baso # (Auto) (0.0-0.2) th/mm3 WBC Differential Differential Comment PT (9.8-11.6) sec INR Ratio Sodium (136-145) meq/L Potassium (3.5-5.1) meq/L Chloride (98-107) meq/L Carbon Dioxide (21.0-32.0) meq/L Anion Gap (5-15) meq/L BUN (7-18) mg/dL Creatinine (0.60-1.30) mg/dL Estimated GFR (>89) mL/min POC Glucose 514 H* Greater than 600 H* (68-110) mg/dl Random Glucose 508 H* D (74-106) mg/dL Calcium (8.5-10.1) mg/dL Magnesium (1.5-2.5) mg/dL Total Bilirubin (0.2-1.0) mg/dL AST (15-37) U/L ALT (12-78) U/L Alkaline Phosphatase (45-117) U/L Troponin I (0.02-0.05) ng/mL B-Natriuretic Peptide (0-100) pg/mL Total Protein (6.4-8.2) g/dL Albumin (3.4-5.0) g/dL Urine Color (Yellw/Straw) Urine Clarity (Clear) Urine pH (5.0-8.5) Ur Specific [place] (1.002-1.035) Urine Protein (Neg-Trace) mg/dL Urine Glucose (UA) (Negative) mg/dL Urine Ketones (Negative) mg/dL Urine Occult Blood (Negative) Urine Nitrate (Negative) Urine Bilirubin (Negative) Urine Urobilinogen (Less than 2) mg/dL Ur Leukocyte Esterase (Negative) Micro UA Comment Ur Microscopic Review Urine Culture Comments Urine Opiates Screen (Neg) Ur Barbiturates Screen (Neg) Ur Amphetamines Screen (Neg) U Benzodiazepines Scrn (Neg) Urine Cocaine Screen (Neg) U Cannabinoids Screen (Neg) 02/20/18 02/20/18 02/20/18 Range/Units 00:00 04:15 08:10 WBC (4.0-11.0) th/mm3 RBC (4.50-5.90) mil/mm3 Hgb (13.0-17.0) gm/dL Hct (39.0-51.0) % MCV (80.0-100.0) fL MCH (27.0-34.0) pg MCHC (32.0-36.0) % RDW (11.6-17.2) % Plt Count (150-450) th/mm3 MPV (7.0-11.0) fL Neut % (Auto) (16.0-70.0) % Lymph % (Auto) (9.0-44.0) % [place] % (Auto) (0.0-8.0) % Eos % (Auto) (0.0-4.0) % Baso % (Auto) (0.0-2.0) % Neut # (Auto) (1.8-7.7) th/mm3 Lymph # (Auto) (1.0-4.8) th/mm3 [place] # (Auto) (0.0-0.9) th/mm3 Eos # (Auto) (0.0-0.4) th/mm3 Baso # (Auto) (0.0-0.2) th/mm3 WBC Differential Differential Comment PT (9.8-11.6) sec INR Ratio Sodium (136-145) meq/L Potassium (3.5-5.1) meq/L Chloride (98-107) meq/L Carbon Dioxide (21.0-32.0) meq/L Anion Gap (5-15) meq/L BUN (7-18) mg/dL Creatinine (0.60-1.30) mg/dL Estimated GFR (>89) mL/min POC Glucose 366 H 75 290 H (68-110) mg/dl Random Glucose (74-106) mg/dL Calcium (8.5-10.1) mg/dL Magnesium (1.5-2.5) mg/dL Total Bilirubin (0.2-1.0) mg/dL AST (15-37) U/L ALT (12-78) U/L Alkaline Phosphatase (45-117) U/L Troponin I (0.02-0.05) ng/mL B-Natriuretic Peptide (0-100) pg/mL Total Protein (6.4-8.2) g/dL Albumin (3.4-5.0) g/dL Urine Color (Yellw/Straw) Urine Clarity (Clear) Urine pH (5.0-8.5) Ur Specific [place] (1.002-1.035) Urine Protein (Neg-Trace) mg/dL Urine Glucose (UA) (Negative) mg/dL Urine Ketones (Negative) mg/dL Urine Occult Blood (Negative) Urine Nitrate (Negative) Urine Bilirubin (Negative) Urine Urobilinogen (Less than 2) mg/dL Ur Leukocyte Esterase (Negative) Micro UA Comment Ur Microscopic Review Urine Culture Comments Urine Opiates Screen (Neg) Ur Barbiturates Screen (Neg) Ur Amphetamines Screen (Neg) U Benzodiazepines Scrn (Neg) Urine Cocaine Screen (Neg) U Cannabinoids Screen (Neg) 02/20/18 02/20/18 02/20/18 Range/Units 12:33 12:39 17:39 WBC (4.0-11.0) th/mm3 RBC (4.50-5.90) mil/mm3 Hgb (13.0-17.0) gm/dL Hct (39.0-51.0) % MCV (80.0-100.0) fL MCH (27.0-34.0) pg MCHC (32.0-36.0) % RDW (11.6-17.2) % Plt Count (150-450) th/mm3 MPV (7.0-11.0) fL Neut % (Auto) (16.0-70.0) % Lymph % (Auto) (9.0-44.0) % [place] % (Auto) (0.0-8.0) % Eos % (Auto) (0.0-4.0) % Baso % (Auto) (0.0-2.0) % Neut # (Auto) (1.8-7.7) th/mm3 Lymph # (Auto) (1.0-4.8) th/mm3 [place] # (Auto) (0.0-0.9) th/mm3 Eos # (Auto) (0.0-0.4) th/mm3 Baso # (Auto) (0.0-0.2) th/mm3 WBC Differential Differential Comment PT (9.8-11.6) sec INR Ratio Sodium 133 L (136-145) meq/L Potassium 4.9 D (3.5-5.1) meq/L Chloride 100 D (98-107) meq/L Carbon Dioxide 25.1 (21.0-32.0) meq/L Anion Gap 8 (5-15) meq/L BUN 17 (7-18) mg/dL Creatinine 0.96 (0.60-1.30) mg/dL Estimated GFR Greater than 89 (>89) mL/min POC Glucose 368 H 591 H* (68-110) mg/dl Random Glucose 381 H D (74-106) mg/dL Calcium 8.1 L (8.5-10.1) mg/dL Magnesium 1.8 (1.5-2.5) mg/dL Total Bilirubin (0.2-1.0) mg/dL AST (15-37) U/L ALT (12-78) U/L Alkaline Phosphatase (45-117) U/L Troponin I (0.02-0.05) ng/mL B-Natriuretic Peptide (0-100) pg/mL Total Protein (6.4-8.2) g/dL Albumin (3.4-5.0) g/dL Urine Color (Yellw/Straw) Urine Clarity (Clear) Urine pH (5.0-8.5) Ur Specific [place] (1.002-1.035) Urine Protein (Neg-Trace) mg/dL Urine Glucose (UA) (Negative) mg/dL Urine Ketones (Negative) mg/dL Urine Occult Blood (Negative) Urine Nitrate (Negative) Urine Bilirubin (Negative) Urine Urobilinogen (Less than 2) mg/dL Ur Leukocyte Esterase (Negative) Micro UA Comment Ur Microscopic Review Urine Culture Comments Urine Opiates Screen (Neg) Ur Barbiturates Screen (Neg) Ur Amphetamines Screen (Neg) U Benzodiazepines Scrn (Neg) Urine Cocaine Screen (Neg) U Cannabinoids Screen (Neg) 02/20/18 02/20/18 02/20/18 Range/Units 17:45 20:56 22:37 WBC (4.0-11.0) th/mm3 RBC (4.50-5.90) mil/mm3 Hgb (13.0-17.0) gm/dL Hct (39.0-51.0) % MCV (80.0-100.0) fL MCH (27.0-34.0) pg MCHC (32.0-36.0) % RDW (11.6-17.2) % Plt Count (150-450) th/mm3 MPV (7.0-11.0) fL Neut % (Auto) (16.0-70.0) % Lymph % (Auto) (9.0-44.0) % [place] % (Auto) (0.0-8.0) % Eos % (Auto) (0.0-4.0) % Baso % (Auto) (0.0-2.0) % Neut # (Auto) (1.8-7.7) th/mm3 Lymph # (Auto) (1.0-4.8) th/mm3 [place] # (Auto) (0.0-0.9) th/mm3 Eos # (Auto) (0.0-0.4) th/mm3 Baso # (Auto) (0.0-0.2) th/mm3 WBC Differential Differential Comment PT (9.8-11.6) sec INR Ratio Sodium (136-145) meq/L Potassium (3.5-5.1) meq/L Chloride (98-107) meq/L Carbon Dioxide (21.0-32.0) meq/L Anion Gap (5-15) meq/L BUN (7-18) mg/dL Creatinine (0.60-1.30) mg/dL Estimated GFR (>89) mL/min POC Glucose 542 H* 474 H* (68-110) mg/dl Random Glucose 328 H (74-106) mg/dL Calcium (8.5-10.1) mg/dL Magnesium (1.5-2.5) mg/dL Total Bilirubin (0.2-1.0) mg/dL AST (15-37) U/L ALT (12-78) U/L Alkaline Phosphatase (45-117) U/L Troponin I (0.02-0.05) ng/mL B-Natriuretic Peptide (0-100) pg/mL Total Protein (6.4-8.2) g/dL Albumin (3.4-5.0) g/dL Urine Color (Yellw/Straw) Urine Clarity (Clear) Urine pH (5.0-8.5) Ur Specific [place] (1.002-1.035) Urine Protein (Neg-Trace) mg/dL Urine Glucose (UA) (Negative) mg/dL Urine Ketones (Negative) mg/dL Urine Occult Blood (Negative) Urine Nitrate (Negative) Urine Bilirubin (Negative) Urine Urobilinogen (Less than 2) mg/dL Ur Leukocyte Esterase (Negative) Micro UA Comment Ur Microscopic Review Urine Culture Comments Urine Opiates Screen (Neg) Ur Barbiturates Screen (Neg) Ur Amphetamines Screen (Neg) U Benzodiazepines Scrn (Neg) Urine Cocaine Screen (Neg) U Cannabinoids Screen (Neg) 02/21/18 02/21/1802/21/18 Range/Units 04:14 07:52 07:56 WBC (4.0-11.0) th/mm3 RBC (4.50-5.90) mil/mm3 Hgb (13.0-17.0) gm/dL Hct (39.0-51.0) % MCV (80.0-100.0) fL MCH (27.0-34.0) pg MCHC (32.0-36.0) % RDW (11.6-17.2) % Plt Count (150-450) th/mm3 MPV (7.0-11.0) fL Neut % (Auto) (16.0-70.0) % Lymph % (Auto) (9.0-44.0) % [place] % (Auto) (0.0-8.0) % Eos % (Auto) (0.0-4.0) % Baso % (Auto) (0.0-2.0) % Neut # (Auto) (1.8-7.7) th/mm3 Lymph # (Auto) (1.0-4.8) th/mm3 [place] # (Auto) (0.0-0.9) th/mm3 Eos # (Auto) (0.0-0.4) th/mm3 Baso # (Auto) (0.0-0.2) th/mm3 WBC Differential Differential Comment PT (9.8-11.6) sec INR Ratio Sodium (136-145) meq/L Potassium (3.5-5.1) meq/L Chloride (98-107) meq/L Carbon Dioxide (21.0-32.0) meq/L Anion Gap (5-15) meq/L BUN (7-18) mg/dL Creatinine (0.60-1.30) mg/dL Estimated GFR (>89) mL/min POC Glucose 348 H 503 H* 335 H (68-110) mg/dl Random Glucose (74-106) mg/dL Calcium (8.5-10.1) mg/dL Magnesium (1.5-2.5) mg/dL Total Bilirubin (0.2-1.0) mg/dL AST (15-37) U/L ALT (12-78) U/L Alkaline Phosphatase (45-117) U/L Troponin I (0.02-0.05) ng/mL B-Natriuretic Peptide (0-100) pg/mL Total Protein (6.4-8.2) g/dL Albumin (3.4-5.0) g/dL Urine Color (Yellw/Straw) Urine Clarity (Clear) Urine pH (5.0-8.5) Ur Specific [place] (1.002-1.035) Urine Protein (Neg-Trace) mg/dL Urine Glucose (UA) (Negative) mg/dL Urine Ketones (Negative) mg/dL Urine Occult Blood (Negative) Urine Nitrate (Negative) Urine Bilirubin (Negative) Urine Urobilinogen (Less than 2) mg/dL Ur Leukocyte Esterase (Negative) Micro UA Comment Ur Microscopic Review Urine Culture Comments Urine Opiates Screen (Neg) Ur Barbiturates Screen (Neg) Ur Amphetamines Screen (Neg) U Benzodiazepines Scrn (Neg) Urine Cocaine Screen (Neg) U Cannabinoids Screen (Neg) 02/21/18 02/21/18 02/21/18 Range/Units 09:21 12:34 17:48 WBC (4.0-11.0) th/mm3 RBC (4.50-5.90) mil/mm3 Hgb (13.0-17.0) gm/dL Hct (39.0-51.0) % MCV (80.0-100.0) fL MCH (27.0-34.0) pg MCHC (32.0-36.0) % RDW (11.6-17.2) % Plt Count (150-450) th/mm3 MPV (7.0-11.0) fL Neut % (Auto) (16.0-70.0) % Lymph % (Auto) (9.0-44.0) % [place] % (Auto) (0.0-8.0) % Eos % (Auto) (0.0-4.0) % Baso % (Auto) (0.0-2.0) % Neut # (Auto) (1.8-7.7) th/mm3 Lymph # (Auto) (1.0-4.8) th/mm3 [place] # (Auto) (0.0-0.9) th/mm3 Eos # (Auto) (0.0-0.4) th/mm3 Baso # (Auto) (0.0-0.2) th/mm3 WBC Differential Differential Comment PT (9.8-11.6) sec INR Ratio Sodium (136-145) meq/L Potassium (3.5-5.1) meq/L Chloride (98-107) meq/L Carbon Dioxide (21.0-32.0) meq/L Anion Gap (5-15) meq/L BUN (7-18) mg/dL Creatinine (0.60-1.30) mg/dL Estimated GFR (>89) mL/min POC Glucose 316 H 426 H 432 H (68-110) mg/dl Random Glucose (74-106) mg/dL Calcium (8.5-10.1) mg/dL Magnesium (1.5-2.5) mg/dL Total Bilirubin (0.2-1.0) mg/dL AST (15-37) U/L ALT (12-78) U/L Alkaline Phosphatase (45-117) U/L Troponin I (0.02-0.05) ng/mL B-Natriuretic Peptide (0-100) pg/mL Total Protein (6.4-8.2) g/dL Albumin (3.4-5.0) g/dL Urine Color (Yellw/Straw) Urine Clarity (Clear) Urine pH (5.0-8.5) Ur Specific [place] (1.002-1.035) Urine Protein (Neg-Trace) mg/dL Urine Glucose (UA) (Negative) mg/dL Urine Ketones (Negative) mg/dL Urine Occult Blood (Negative) Urine Nitrate (Negative) Urine Bilirubin (Negative) Urine Urobilinogen (Less than 2) mg/dL Ur Leukocyte Esterase (Negative) Micro UA Comment Ur Microscopic Review Urine Culture Comments Urine Opiates Screen (Neg) Ur Barbiturates Screen (Neg) Ur Amphetamines Screen (Neg) U Benzodiazepines Scrn (Neg) Urine Cocaine Screen (Neg) U Cannabinoids Screen (Neg) 02/21/18 02/21/18 02/21/18 Range/Units 19:53 20:37 23:40 WBC (4.0-11.0) th/mm3 RBC (4.50-5.90) mil/mm3 Hgb (13.0-17.0) gm/dL Hct (39.0-51.0) % MCV (80.0-100.0) fL MCH (27.0-34.0) pg MCHC (32.0-36.0) % RDW (11.6-17.2) % Plt Count (150-450) th/mm3 MPV (7.0-11.0) fL Neut % (Auto) (16.0-70.0) % Lymph % (Auto) (9.0-44.0) % [place] % (Auto) (0.0-8.0) % Eos % (Auto) (0.0-4.0) % Baso % (Auto) (0.0-2.0) % Neut # (Auto) (1.8-7.7) th/mm3 Lymph # (Auto) (1.0-4.8) th/mm3 [place] # (Auto) (0.0-0.9) th/mm3 Eos # (Auto) (0.0-0.4) th/mm3 Baso # (Auto) (0.0-0.2) th/mm3 WBC Differential Differential Comment PT (9.8-11.6) sec INR Ratio Sodium (136-145) meq/L Potassium (3.5-5.1) meq/L Chloride (98-107) meq/L Carbon Dioxide (21.0-32.0) meq/L Anion Gap (5-15) meq/L BUN (7-18) mg/dL Creatinine (0.60-1.30) mg/dL Estimated GFR (>89) mL/min POC Glucose 483 H* 561 H* (68-110) mg/dl Random Glucose 476 H* D (74-106) mg/dL Calcium (8.5-10.1) mg/dL Magnesium (1.5-2.5) mg/dL Total Bilirubin (0.2-1.0) mg/dL AST (15-37) U/L ALT (12-78) U/L Alkaline Phosphatase (45-117) U/L Troponin I (0.02-0.05) ng/mL B-Natriuretic Peptide (0-100) pg/mL Total Protein (6.4-8.2) g/dL Albumin (3.4-5.0) g/dL Urine Color (Yellw/Straw) Urine Clarity (Clear) Urine pH (5.0-8.5) Ur Specific [place] (1.002-1.035) Urine Protein (Neg-Trace) mg/dL Urine Glucose (UA) (Negative) mg/dL Urine Ketones (Negative) mg/dL Urine Occult Blood (Negative) Urine Nitrate (Negative) Urine Bilirubin (Negative) Urine Urobilinogen (Less than 2) mg/dL Ur Leukocyte Esterase (Negative) Micro UA Comment Ur Microscopic Review Urine Culture Comments Urine Opiates Screen (Neg) Ur Barbiturates Screen (Neg) Ur Amphetamines Screen (Neg) U Benzodiazepines Scrn (Neg) Urine Cocaine Screen (Neg) U Cannabinoids Screen (Neg) 02/22/18 02/22/18 02/22/18 Range/Units 04:07 08:07 12:24 WBC (4.0-11.0) th/mm3 RBC (4.50-5.90) mil/mm3 Hgb (13.0-17.0) gm/dL Hct (39.0-51.0) % MCV (80.0-100.0) fL MCH (27.0-34.0) pg MCHC (32.0-36.0) % RDW (11.6-17.2) % Plt Count (150-450) th/mm3 MPV (7.0-11.0) fL Neut % (Auto) (16.0-70.0) % Lymph % (Auto) (9.0-44.0) % [place] % (Auto) (0.0-8.0) % Eos % (Auto) (0.0-4.0) % Baso % (Auto) (0.0-2.0) % Neut # (Auto) (1.8-7.7) th/mm3 Lymph # (Auto) (1.0-4.8) th/mm3 [place] # (Auto) (0.0-0.9) th/mm3 Eos # (Auto) (0.0-0.4) th/mm3 Baso # (Auto) (0.0-0.2) th/mm3 WBC Differential Differential Comment PT (9.8-11.6) sec INR Ratio Sodium (136-145) meq/L Potassium (3.5-5.1) meq/L Chloride (98-107) meq/L Carbon Dioxide (21.0-32.0) meq/L Anion Gap (5-15) meq/L BUN (7-18) mg/dL Creatinine (0.60-1.30) mg/dL Estimated GFR (>89) mL/min POC Glucose 315 H 202 H 320 H (68-110) mg/dl Random Glucose (74-106) mg/dL Calcium (8.5-10.1) mg/dL Magnesium (1.5-2.5) mg/dL Total Bilirubin (0.2-1.0) mg/dL AST (15-37) U/L ALT (12-78) U/L Alkaline Phosphatase (45-117) U/L Troponin I (0.02-0.05) ng/mL B-Natriuretic Peptide (0-100) pg/mL Total Protein (6.4-8.2) g/dL Albumin (3.4-5.0) g/dL Urine Color (Yellw/Straw) Urine Clarity (Clear) Urine pH (5.0-8.5) Ur Specific [place] (1.002-1.035) Urine Protein (Neg-Trace) mg/dL Urine Glucose (UA) (Negative) mg/dL Urine Ketones (Negative) mg/dL Urine Occult Blood (Negative) Urine Nitrate (Negative) Urine Bilirubin (Negative) Urine Urobilinogen (Less than 2) mg/dL Ur Leukocyte Esterase (Negative) Micro UA Comment Ur Microscopic Review Urine Culture Comments Urine Opiates Screen (Neg) Ur Barbiturates Screen (Neg) Ur Amphetamines Screen (Neg) U Benzodiazepines Scrn (Neg) Urine Cocaine Screen (Neg) U Cannabinoids Screen (Neg) Imaging Data Radiologist's impression: Chest X-Ray 02/19/18 13:59 CONCLUSION: Negative examination. Forearm CT 02/20/18 00:00 CONCLUSION: Suspected superficial fluid collection in the anterior mid left forearm likely related to a hematoma or abscess or this can be correlated clinically. Discharge Plan Discharge Disposition Patient Disposition: 30 Still Patient Discharge Order Discharge Orders: AMA Discharge (Routine); Ordered 02/22/18 Ordered By: Wilmer Murguia Physicians Team ED Provider: Lena Arambula ED Midlevel Provider: Erum Chavez Primary Care Provider: Primary Care Physici,No Attending Provider: Wilmer Murguia Other Providers: Arturo Baldwin Status ED Status: Left Department Discharge Information Discharge Date/Time: 02/19/18 23:57
[2018-02-19 14:26] LABS: Baso % (Auto) 0.3 % (0.0-2.0); Eos % (Auto) 0.9 % (0.0-4.0); Hematocrit 33.3 % (39.0-51.0); Hemoglobin 10.8 gm/dL (13.0-17.0); Lymph # (Auto) 0.8 th/mm3 (1.0-4.8); Lymph % (Auto) 19.5 % (9.0-44.0); Mean Corpuscular HGB Conc 32.4 % (32.0-36.0); Mean Corpuscular Hemoglobin 29.2 pg (27.0-34.0); Mean Corpuscular Volume 90.1 fL (80.0-100.0); Mean Platelet Volume 9.8 fL (7.0-11.0); Mono # (Auto) 0.4 th/mm3 (0.0-0.9); Mono % (Auto) 9.1 % (0.0-8.0); Neut # (Auto) 2.9 th/mm3 (1.8-7.7); Neut % (Auto) 70.2 % (16.0-70.0); Platelet Count 180 th/mm3 (150-450); Red Blood Count 3.69 mil/mm3 (4.50-5.90); Red Cell Distribution Width 13.8 % (11.6-17.2); White Blood Count 4.2 th/mm3 (4.0-11.0)
[2018-02-19 14:31] LABS: Prothrombin Time 10.2 sec (9.8-11.6)
--- NOTE | 2018-02-19 14:35 | XR ---
EXAM DATE: 02/19/2018 2:24 PM EST AGE/SEX: 52 years / Male INDICATIONS: Shortness of breath. CLINICAL DATA: This is the patient's initial encounter. Patient reports that signs and symptoms have been present for 1 day and indicates a pain score of 0/10. MEDICAL/SURGICAL HISTORY: . Abdominal hernia. Cardiomyopathy. Chronic kidney disease. Heart att ack. . Hernia repair. Stented coronary artery. COMPARISON: [facility] [place], CHEST 1V SINGLE AP, 02/15/2018. . FINDINGS: A single AP view of the chest demonstrates the lungs to be symmetrically aerated without evidence of mass, infiltrate or effusion. The cardiomediastinal contours are unremarkable. Osseous structures a re intact. CONCLUSION: Negative examination. Electronically signed by: Marcos Chino MD 02/19/2018 2:33 PM EST
[2018-02-19 14:44] LABS: Albumin 3.1 g/dL (3.4-5.0); Anion Gap 9 meq/L (5-15); Aspartate Aminotransferase 106 U/L (15-37); Blood Urea Nitrogen 26 mg/dL (7-18); Calcium 8.3 mg/dL (8.5-10.1); Carbon Dioxide 28.1 meq/L (21.0-32.0); Chloride 92 meq/L (98-107); Glomerular Filtration Rate 61 mL/min (>89); Potassium 4.1 meq/L (3.5-5.1); Sodium 129 meq/L (136-145)
[2018-02-19] MEDS ORDERED: Sod Chloride 0.9% Inj 1,000 ML IV.SIG ONE ×2 (14:58→15:06)
[2018-02-19 14:59] LABS: Alanine Aminotransferase 127 U/L (12-78); Alkaline Phosphatase 96 U/L (45-117); Total Protein 6.5 g/dL (6.4-8.2)
[2018-02-19 15:03] LABS: Glucose,Random 950 mg/dL (74-106)
[2018-02-19 15:42] LABS: Bilirubin,Urine Negative (Negative); Clarity,Urine Clear (Clear); Color,Urine Colorless (Yellw/Straw); Glucose,Urine (UA) 500 or Greater mg/dL (Negative); Leukocyte Esterase,Urine Negative (Negative); Nitrite,Urine Negative (Negative); Specific Gravity,Urine 1.024 (1.002-1.035)
[2018-02-19 15:50] LABS: Amphetamine Screen,Urine Neg (Neg); Barbiturate Screen,Urine Neg (Neg); Cannabinoid Screen,Urine Neg (Neg); Cocaine Screen,Urine Pos (Neg)
[2018-02-19 15:55] LABS: Opiate Screen,Urine Neg (Neg)
[2018-02-19] MEDS ORDERED: Acetaminophen 325 MG Tablet PO PRN (17:57)
[2018-02-19] MEDS ORDERED: Bisacodyl 10 MG Supp RECTAL PRN (17:57)
--- NOTE | 2018-02-19 18:29 | P.HP ---
History of Present Illness Service: Hospitalist Primary Care Physician: No Primary Care Physician Chief Complaint: Hyperglycemia History of Present Illness: Patient is a 52-year-old -Danish male with a past medical history of uncontrolled diabetes, CHF, CAD status post stent, CKD, hep C, and cocaine abuse who presents to the emergency room for shortness of breath and a left arm wound. Upon admission he was found to have of blood glucose of over 900. Patient was recently in observation unit for same complaints and left AMA. He has a long history of noncompliance with medications. He has received 2 L bolus NS as well as a total of 9 units insulin. Blood glucose improved to 558. He is seen in room where he is lying comfortably. Tells me that he is feeling better and is no longer short of breath. No chest pain. No nausea vomiting or diarrhea. He is hungry. - Diagnosis (1) Uncontrolled diabetes mellitus (2) Substance abuse (3) Acute hyperglycemia (4) Non compliance w medication regimen (5) SOB (shortness of breath) Review of Systems All other systems reviewed negative except as stated in HPI PMFSH - History History Provided By: Patient, Medical Record - Medical History Medical History: Medical History (Last Reviewed 02/19/18 @ 18:13 by AMITA Rizzo) CAD (coronary artery disease) (Acute) Chronic kidney disease (Acute) Cardiomyopathy (Acute) Heart attack (Acute) Abdominal hernia (Acute) Diabetes (Acute) - Surgical History Surgical History: Surgical History (Last Reviewed 02/19/18 @ 18:13 by AMITA Rizzo) Stented coronary artery (Acute) Hx of hernia repair - Family History Family History: Family History (Last Reviewed 02/19/18 @ 18:13 by AMITA Rizzo) Mother Family history of diabetes mellitus - Social History I have reviewed the patient's Social History: Yes - Tobacco History Second Hand Smoke Exposure: Yes Smoking Status: Former smoker Tobacco Type: Cigarettes - Alcohol History How Often Do You Have a Drink Containing Alcohol: Never - Substance Use History Substance History: Active Abuse - Travel History Recent Travel in the [place] Within the Last 8 Weeks: No Recent Travel Out of the Country Within the Last 8 Weeks: No - Immunization History Tetanus Immunization: Unsure Medications and Allergies Active Medications: Active Medications Acetaminophen (Tylenol) 650 mg PO Q4H PRN PRN Reason: Temp > 100.4 Al Hydroxide/Mg Hydroxide (Milk Of Magnesia Liq) 30 ml PO Q12H PRN PRN Reason: Mild Constipation Aspirin (Aspirin Chew) 81 mg PO DAILY [facility] Bisacodyl (Dulcolax Supp) 10 mg RECTAL DAILY PRN PRN Reason: SEVERE CONSITIPATION Glimepiride (Amaryl) 1 mg PO DAILY [facility] Sodium Chloride (Ns Inj) 1,000 mls @ 100 mls/hr IV.CONT .Q10H [facility] Insulin Aspart (Novolog Insulin Correctional Sugar Inj) unit SQ TID [facility]; Protocol Lactulose (Lactulose Liq) 30 ml PO DAILY PRN PRN Reason: SEVERE CONSITIPATION Lisinopril (Prinivil) 2.5 mg PO DAILY [facility] Ondansetron HCl (Zofran Inj) 4 mg IV.PUSH Q6H PRN PRN Reason: NAUSEA OR VOMITING Senna/Docusate Sodium (Rula-Colace) 1 tab PO BID [facility] Sennosides (Senokot) 17.2 mg PO Q12H PRN PRN Reason: Moderate Constipation Allergies Allergy/AdvReac Type Severity Reaction Status Date / Time No Known Allergies Allergy Verified 02/19/18 13:48 Home Medications Medication Instructions Recorded Confirmed Type insulin aspart U-100 [Novolog 1 sliding scale dose SUB-Q TID 12/15/17 01/28/18 History U-100 Insulin aspart] Exam Vital signs: Vital Signs 02/19/18 13:44 02/19/18 14:02 Temperature 98.4 F Pulse Rate 89 85 Respiratory Rate 18 19 Blood Pressure 155/78 H Pulse Oximetry 97 100 Intake & Output 02/18/18 02/19/18 02/19/18 18:59 06:59 18:59 Intake Total 1999 Output Total 1400 / 1400 Balance 600 / 600 Weight 49.895 kg Intake: IV 1999 NS Inj 1,000 ML @ Wide Open IV. 1999 SIG BOLUS ONE Rx#:[id number] Output: Urine 1400 / 1400 Narrative: GENERAL: Well-nourished, well-developed adult male in no obvious distress. SKIN: Warm and dry. 1.5cm round lesion on anterior aspect of the left forearm. Localized erythema. Mild TTP. NO warmth, induration, fluctuance, crepitus noted. HEAD: Atraumatic. Normocephalic. CARDIOVASCULAR: Regular rate and rhythm. RESPIRATORY: No accessory muscle use. Clear to auscultation. Breath sounds equal bilaterally. GASTROINTESTINAL: Abdomen soft, non-tender, non-distended. Positive bowel sounds. MUSCULOSKELETAL: Extremities without clubbing, cyanosis, or edema. No obvious deformities. NEUROLOGICAL: Awake and alert. No obvious cranial nerve deficits. Motor grossly within normal limits. Normal speech. Results - Labs CBC & Chem 7: 02/19/18 14:09 02/19/18 14:09 Labs: Laboratory Results - last 24 hr 02/19/18 02/19/18 02/19/18 14:04 14:09 14:09 WBC 4.2 RBC 3.69 L Hgb 10.8 L Hct 33.3 L MCV 90.1 MCH 29.2 MCHC 32.4 RDW 13.8 Plt Count 180 MPV 9.8 Neut % (Auto) 70.2 H Lymph % (Auto) 19.5 [place] % (Auto) 9.1 H Eos % (Auto) 0.9 Baso % (Auto) 0.3 Neut # (Auto) 2.9 Lymph # (Auto) 0.8 L [place] # (Auto) 0.4 Eos # (Auto) 0.0 Baso # (Auto) 0.0 WBC Differential . Differential Comment Auto diff final PT 10.2 INR 1.0 Sodium Potassium Chloride Carbon Dioxide Anion Gap BUN Creatinine Estimated GFR POC Glucose Greater than 600 H* Random Glucose Calcium Total Bilirubin AST ALT Alkaline Phosphatase Troponin I B-Natriuretic Peptide Total Protein Albumin Urine Color Urine Clarity Urine pH Ur Specific [place] Urine Protein Urine Glucose (UA) Urine Ketones Urine Occult Blood Urine Nitrate Urine Bilirubin Urine Urobilinogen Ur Leukocyte Esterase Micro UA Comment Ur Microscopic Review Urine Culture Comments Urine Opiates Screen Ur Barbiturates Screen Ur Amphetamines Screen U Benzodiazepines Scrn Urine Cocaine Screen U Cannabinoids Screen 02/19/18 02/19/18 02/19/18 14:09 14:09 14:40 WBC RBC Hgb Hct MCV MCH MCHC RDW Plt Count MPV Neut % (Auto) Lymph % (Auto) [place] % (Auto) Eos % (Auto) Baso % (Auto) Neut # (Auto) Lymph # (Auto) [place] # (Auto) Eos # (Auto) Baso # (Auto) WBC Differential Differential Comment PT INR Sodium 129 L Potassium 4.1 Chloride 92 L Carbon Dioxide 28.1 Anion Gap 9 BUN 26 H Creatinine 1.46 H Estimated GFR 61 L POC Glucose Random Glucose 950 H* Calcium 8.3 L Total Bilirubin 0.4 AST 106 H ALT 127 H Alkaline Phosphatase 96 Troponin I Less than 0.02 L B-Natriuretic Peptide 308 H Total Protein 6.5 Albumin 3.1 L Urine Color Urine Clarity Urine pH Ur Specific [place] Urine Protein Urine Glucose (UA) Urine Ketones Urine Occult Blood Urine Nitrate Urine Bilirubin Urine Urobilinogen Ur Leukocyte Esterase Micro UA Comment Ur Microscopic Review Urine Culture Comments Urine Opiates Screen Neg Ur Barbiturates Screen Neg Ur Amphetamines Screen Neg U Benzodiazepines Scrn Neg Urine Cocaine Screen Pos H U Cannabinoids Screen Neg 02/19/18 02/19/18 02/19/18 14:40 16:16 17:17 WBC RBC Hgb Hct MCV MCH MCHC RDW Plt Count MPV Neut % (Auto) Lymph % (Auto) [place] % (Auto) Eos % (Auto) Baso % (Auto) Neut # (Auto) Lymph # (Auto) [place] # (Auto) Eos # (Auto) Baso # (Auto) WBC Differential Differential Comment PT INR Sodium Potassium Chloride Carbon Dioxide Anion Gap BUN Creatinine Estimated GFR POC Glucose Greater than 600 H* 558 H* Random Glucose Calcium Total Bilirubin AST ALT Alkaline Phosphatase Troponin I B-Natriuretic Peptide Total Protein Albumin Urine Color Colorless Urine Clarity Clear Urine pH 7.0 Ur Specific [place] 1.024 Urine Protein Negative Urine Glucose (UA) 500 or greater Urine Ketones Negative Urine Occult Blood Negative Urine Nitrate Negative Urine Bilirubin Negative Urine Urobilinogen Less than 2 Ur Leukocyte Esterase Negative Micro UA Comment Culture not ind Ur Microscopic Review Not Reportable Urine Culture Comments Culture not ind Urine Opiates Screen Ur Barbiturates Screen Ur Amphetamines Screen U Benzodiazepines Scrn Urine Cocaine Screen U Cannabinoids Screen - Imaging Impressions Chest X-Ray 02/19/18 13:59 CONCLUSION: Negative examination. Caprini VTE Risk Assessment Caprini VTE Risk Assessment: No/Low Risk (score <= 1) Caprini Risk Assessment Model: Point Value = 1 Point Value = 2 Point Value = 3 Point Value = 5 Age 41-60 Minor surgery BMI > 25 kg/m2 Swollen legs Varicose veins or History of unexplained or recurrent spontaneous Oral contraceptives or hormone replacement Sepsis (< 1 month) Serious lung disease, including pneumonia (< 1 month) Abnormal pulmonary function Acute myocardial infarction Congestive heart failure (< 1 month) History of inflammatory bowel disease Medical patient at bed rest Age 61-74 Arthroscopic surgery Major open surgery (> 45 min) Laparoscopic surgery (> 45 min) Malignancy Confined to bed (> 72 hours) Immobilizing plaster cast Central venous access Age >= 75 History of VTE Family history of VTE Factor V Leiden Prothrombin [id number] Lupus anticoagulant Anticardiolipin antibodies Elevated serum homocysteine Heparin-induced thrombocytopenia Other congenital or acquired thrombophilia Stroke (< 1 month) Elective arthroplasty Hip, pelvis, or leg fracture Acute spinal cord injury (< 1 month) Prophylaxis Regimen: Total Risk Factor Score Risk Level Prophylaxis Regimen 0-1 Low Early ambulation 2 Moderate Order ONE of the following: *Sequential Compression Device (SCD) *Heparin 5000 units SQ BID 3-4 Higher Order ONE of the following medications: *Heparin 5000 units SQ TID *Enoxaparin/Lovenox 40 mg SQ daily (WT < 150 kg, CrCl > 30 mL/min) *Enoxaparin/Lovenox 30 mg SQ daily (WT < 150 kg, CrCl > 10-29 mL/min) *Enoxaparin/Lovenox 30 mg SQ BID (WT < 150 kg, CrCl > 30 mL/min) AND/OR *Sequential Compression Device (SCD) 5 or more Highest Order ONE of the following medications: *Heparin 5000 units SQ TID (Preferred with Epidurals) *Enoxaparin/Lovenox 40 mg SQ daily (WT < 150 kg, CrCl > 30 mL/min) *Enoxaparin/Lovenox 30 mg SQ daily (WT < 150 kg, CrCl > 10-29 mL/min) *Enoxaparin/Lovenox 30 mg SQ BID (WT < 150 kg, CrCl > 30 mL/min) AND *Sequential Compression Device (SCD) Assessment and Plan - Assessment (1) Uncontrolled diabetes mellitus Code(s): E11.65 - Type 2 diabetes mellitus with hyperglycemia Status: Acute (2) Substance abuse Code(s): F19.10 - Other psychoactive substance abuse, uncomplicated Status: Acute (3) Acute hyperglycemia Code(s): R73.9 - Hyperglycemia, unspecified Status: Acute (4) Non compliance w medication regimen Code(s): Z91.14 - Patient's other noncompliance with medication regimen Status : Acute (5) SOB (shortness of breath) Code(s): R06.02 - Shortness of breath Status: Acute - Plan Patient is a 52-year-old -Danish male with a past medical history of uncontrolled diabetes, CHF, CAD status post stent, CKD, hep C, and cocaine abuse who presents to the emergency room for shortness of breath and a left arm wound. Upon admission he was found to have of blood glucose of over 900. Patient was recently in observation unit for same complaints and left AMA. He has a long history of noncompliance with medications. Severe hypoglycemia of over 900 - history of diabetes on insulin. He is noncompliant. -Will add oral medications -metformin and glyburide. Would prefer to discharge patient on oral medications versus insulin in hopes of increasing compliance. Reduce sliding scale insulin based on effectiveness of orals. Heart failure with shortness of breath -likely secondary to hyperglycemia -Admits to frequently smoking cocaine -chest CT indicates no acute process Skin lesion -Keep clean and dry. Open to air. Hepatitis C -abnormal liver function -Review of records indicates known hepatitis C since at least 2014. Patient acknowledges that he never followed up. Will need outpatient treatment. -avoid hepatotoxins Acute kidney injury -2 L bolus in ED -Continue IVF with NS at 100 Substance abuse -Counseled cessation DVT prophylaxis with SCD and early ambulation Discharge planning: Likely home when sugars are controlled.
[2018-02-19] MEDS ORDERED: Dextrose 50% in Water 50 ML Vial IV.PUSH PRN (18:34)
[2018-02-19] MEDS: Sod Chloride 0.9% Inj 1,000 ML IV.CONT SCH (20:40)
[2018-02-19] MEDS: Insulin NovoLOG Aspart Correctional Sugar Inj SQ SCH (20:40)
[2018-02-19] MEDS: Senna/Docusate Sodium 8.6/50 MG Tablet PO SCH (20:40)
[2018-02-20] MEDS: Insulin NovoLOG Aspart Correctional Sugar Inj SQ SCH ×4 (00:41→18:51)
[2018-02-20] MEDS: Sod Chloride 0.9% Inj 1,000 ML IV.CONT SCH ×2 (04:33→15:27)
[2018-02-20] MEDS ORDERED: Glimepiride 1 MG Tablet PO SCH (07:00)
[2018-02-20] MEDS: Lisinopril 5 MG Tablet PO SCH (08:48)
[2018-02-20] MEDS: Senna/Docusate Sodium 8.6/50 MG Tablet PO SCH ×2 (08:49→20:10)
--- NOTE | 2018-02-20 10:36 | CT ---
EXAM DATE: 02/20/2018 10:27 AM EST AGE/SEX: 52 years / Male INDICATIONS: Painful left forearm CLINICAL DATA: This is the patient's initial encounter. Patient reports that signs and symptoms have been present for 1 day and indicates a pain score of 6/10. MEDICAL/SURGICAL HISTORY: Cardiovascular disease. Diabetes. Renal insufficiency. None. RADIATION DOSE: 13.29 CTDI (mGy) COMPARISON: No prior exams available for comparison. TECHNIQUE: Multiple contiguous axial images were acquired using a multi-row detector CT scanner afte r the intravenous administration of 85 ml Omnipaque 350 (iohexol) nonionic water-soluble contrast as a single exam dose. Multiplanar reconstruction was performed in the sagittal and coronal planes. Using automated exposure control and adjustment of the mA and/or kV according to patient size, radiat ion dose was kept as low as reasonably achievable to obtain optimal diagnostic quality images. DICOM format image data is available electronically for review and comparison. FINDINGS: Bones: The bony structures about the forefoot are in normal alignment. The metatarsi, phalanges, an d distal tarsal row osseous structures are intact. No fracture is seen. Joints: No significant arthropathy or bony hypertrophy is seen. Soft Tissues: There is a superficial fluid collection seen in the anterior mid lateral forearm measu ring 3.0 x 1.5 x 2.7 cm. This appears to be within the subcutaneous fat. The skin bulges over this re gion. Other: No foreign bodies seen. Post Contrast: No abnormal areas of enhancement are seen in the marrow or soft tissues. CONCLUSION: Suspected superficial fluid collection in the anterior mid left forearm likely related to a hematoma or abscess or this can be correlated clinically. Electronically signed by: Marcos Winter MD 02/20/2018 10:35 AM EST
[2018-02-20 13:18] LABS: Anion Gap 8 meq/L (5-15); Blood Urea Nitrogen 17 mg/dL (7-18); Calcium 8.1 mg/dL (8.5-10.1); Carbon Dioxide 25.1 meq/L (21.0-32.0); Chloride 100 meq/L (98-107); Glomerular Filtration Rate Greater Than 89 mL/min (>89); Glucose,Random 381 mg/dL (74-106); Magnesium 1.8 mg/dL (1.5-2.5); Potassium 4.9 meq/L (3.5-5.1); Sodium 133 meq/L (136-145)
--- NOTE | 2018-02-20 13:49 | ECG ---
Date Performed: 02/19/2018 Time Performed: 13:55:31 PTAGE: 52 years EKG: Sinus rhythm WITH SHORT CT INTERVAL POSSIBLE LEFT ATRIAL ENLARGEMENT LEFT VENTRICULAR HYPERTROPHY AND ST-T CHANGE ABNORMAL ECG Since PREVIOUS TRACING , no significant change noted PREVIOUS TRACIN02/15/2018 11.25 DOCTOR: Gonsalo Lopez Interpretating Date/Time 02/20/2018 13:46:41
--- NOTE | 2018-02-20 15:20 | P.PN ---
Subjective Interval history: Patient is seen sitting up in bed having just finished breakfast. Tells me that he is feeling much better. Reports that lesion on left arm started draining overnight. Not painful. No fevers or chills. No nausea vomiting or diarrhea. Physical Exam Vital signs: Vital Signs 02/20/18 00:30 02/20/18 08:56 02/20/18 09:15 Temperature 99.1 F Pulse Rate 82 67 Respiratory Rate 18 16 Blood Pressure 127/82 139/83 Pulse Oximetry 95 95 98 02/20/18 12:50 Temperature 98.9 F Pulse Rate 77 Respiratory Rate 16 Blood Pressure 155/103 H Pulse Oximetry 95 Intake & Output 02/19/18 02/20/18 02/20/18 18:59 06:59 18:59 Intake Total 1999 1820 / 1820 Output Total 1999 510 / 510 Balance 0 / 0 -180 / -180 -510 / -510 Weight 49.895 kg 49.9 kg 49.9 kg Intake: IV 1999 1000 / 1000 NS Inj 1,000 ML @ 100 mls/hr IV 1000 / 1000 .CONT .Q10H [place] Rx#:[id number] NS Inj 1,000 ML @ Wide Open IV. 1999 SIG BOLUS ONE Rx#:[id number] Oral 820 / 820 Output: Urine 1999 510 / 510 Other: Date of Last Bowel Movement 02/18/18 Weight On Admission 49.9 kg Narrative: GENERAL: Well-nourished, well-developed adult male in no obvious distress. SKIN: Warm and dry. 1.5cm round lesion on anterior aspect of the left forearm. Localized erythema. Opened and began draining serous fluid overnight. HEAD: Atraumatic. Normocephalic. CARDIOVASCULAR: Regular rate and rhythm. RESPIRATORY: No accessory muscle use. Clear to auscultation. Breath sounds equal bilaterally. GASTROINTESTINAL: Abdomen soft, non-tender, non-distended. Positive bowel sounds. MUSCULOSKELETAL: Extremities without clubbing, cyanosis, or edema. No obvious deformities. NEUROLOGICAL: Awake and alert. No obvious cranial nerve deficits. Motor grossly within normal limits. Normal speech. Results - Labs CBC & Chem 7: 02/19/18 14:09 02/20/18 12:33 Laboratory Results - last 24 hr 02/19/18 02/19/18 02/19/18 14:40 14:40 16:16 Sodium Potassium Chloride Carbon Dioxide Anion Gap BUN Creatinine Estimated GFR POC Glucose Greater than 600 H* Random Glucose Calcium Magnesium Urine Color Colorless Urine Clarity Clear Urine pH 7.0 Ur Specific [place] 1.024 Urine Protein Negative Urine Glucose (UA) 500 or greater Urine Ketones Negative Urine Occult Blood Negative Urine Nitrate Negative Urine Bilirubin Negative Urine Urobilinogen Less than 2 Ur Leukocyte Esterase Negative Micro UA Comment Culture not ind Ur Microscopic Review Not Reportable Urine Culture Comments Culture not ind Urine Opiates Screen Neg Ur Barbiturates Screen Neg Ur Amphetamines Screen Neg U Benzodiazepines Scrn Neg Urine Cocaine Screen Pos H U Cannabinoids Screen Neg 02/19/18 02/19/18 02/19/18 17:17 18:12 20:20 Sodium Potassium Chloride Carbon Dioxide Anion Gap BUN Creatinine Estimated GFR POC Glucose 558 H* 514 H* Greater than 600 H* Random Glucose Calcium Magnesium Urine Color Urine Clarity Urine pH Ur Specific [place] Urine Protein Urine Glucose (UA) Urine Ketones Urine Occult Blood Urine Nitrate Urine Bilirubin Urine Urobilinogen Ur Leukocyte Esterase Micro UA Comment Ur Microscopic Review Urine Culture Comments Urine Opiates Screen Ur Barbiturates Screen Ur Amphetamines Screen U Benzodiazepines Scrn Urine Cocaine Screen U Cannabinoids Screen 02/19/18 02/20/18 02/20/18 20:26 00:00 04:15 Sodium Potassium Chloride Carbon Dioxide Anion Gap BUN Creatinine Estimated GFR POC Glucose 366 H 75 Random Glucose 508 H* D Calcium Magnesium Urine Color Urine Clarity Urine pH Ur Specific [place] Urine Protein Urine Glucose (UA) Urine Ketones Urine Occult Blood Urine Nitrate Urine Bilirubin Urine Urobilinogen Ur Leukocyte Esterase Micro UA Comment Ur Microscopic Review Urine Culture Comments Urine Opiates Screen Ur Barbiturates Screen Ur Amphetamines Screen U Benzodiazepines Scrn Urine Cocaine Screen U Cannabinoids Screen 02/20/18 02/20/18 02/20/18 08:10 12:33 12:39 Sodium 133 L Potassium 4.9 D Chloride 100 D Carbon Dioxide 25.1 Anion Gap 8 BUN 17 Creatinine 0.96 Estimated GFR Greater than 89 POC Glucose 290 H 368 H Random Glucose 381 H D Calcium 8.1 L Magnesium 1.8 Urine Color Urine Clarity Urine pH Ur Specific [place] Urine Protein Urine Glucose (UA) Urine Ketones Urine Occult Blood Urine Nitrate Urine Bilirubin Urine Urobilinogen Ur Leukocyte Esterase Micro UA Comment Ur Microscopic Review Urine Culture Comments Urine Opiates Screen Ur Barbiturates Screen Ur Amphetamines Screen U Benzodiazepines Scrn Urine Cocaine Screen U Cannabinoids Screen - Imaging Impressions Forearm CT 02/20/18 00:00 CONCLUSION: Suspected superficial fluid collection in the anterior mid left forearm likely related to a hematoma or abscess or this can be correlated clinically. Assessment and Plan - Assessment (1) Uncontrolled diabetes mellitus Code(s): E11.65 - Type 2 diabetes mellitus with hyperglycemia Status: Chronic (2) Substance abuse Code(s): F19.10 - Other psychoactive substance abuse, uncomplicated Status: Chronic (3) Acute hyperglycemia Code(s): R73.9 - Hyperglycemia, unspecified Status: Acute (4) Non compliance w medication regimen Code(s): Z91.14 - Patient's other noncompliance with medication regimen Status : Chronic (5) SOB (shortness of breath) Code(s): R06.02 - Shortness of breath Status: Acute (6) Abscess of arm, left Code(s): L02.414 - Cutaneous abscess of left upper limb Status: Acute - Plan Patient is a 52-year-old -[place]ominican male with a past medical history of uncontrolled diabetes, CHF, CAD status post stent, CKD, hep C, and cocaine abuse who presents to the emergency room for shortness of breath and a left arm wound. Upon admission he was found to have of blood glucose of over 900. Patient was recently in observation unit for same complaints and left AMA. He has a long history of noncompliance with medications. Severe hypoglycemia of over 900 -improving - history of diabetes on insulin. He is noncompliant. -Will add oral medications for anticipated discharge-metformin and glyburide. Would prefer to discharge patient on oral medications versus insulin in hopes of increasing compliance. Reduce sliding scale insulin based on effectiveness of orals. Heart failure with shortness of breath - chronic -likely secondary to hyperglycemia -Admits to frequently smoking cocaine -chest CT indicates no acute process Skin lesion - acute -Keep clean and dry. May dress with ABD and gauze if draining. -We will start doxycycline (avoid Bactrim DS as potassium is typically high normal) Hepatitis C - chronic -abnormal liver function -Review of records indicates known hepatitis C since at least 2014. Patient acknowledges that he never followed up. Will need outpatient treatment. -avoid hepatotoxins Acute kidney injury -resolved -2 L bolus in ED -Continue IVF with NS at 100 -stopped 01/20. Substance abuse -Counseled cessation DVT prophylaxis with SCD and early ambulation Discharge planning: Likely home when sugars are controlled.
[2018-02-21] MEDS: Lisinopril 5 MG Tablet PO SCH (08:24)
[2018-02-21] MEDS: Senna/Docusate Sodium 8.6/50 MG Tablet PO SCH ×2 (08:25→21:20)
[2018-02-21] MEDS: Insulin NovoLOG Aspart Correctional Sugar Inj SQ SCH ×3 (09:30→19:15)
[2018-02-21] MEDS ORDERED: Vancomycin Consult Pharmacy OTHER PRN (12:54)
[2018-02-21] MEDS: Piperacil/Tazo 3.375 GM Premix 50 ML IV.SIG SCH ×2 (13:26→21:34)
[2018-02-21] MEDS: Vancomycin Inj 1,000 MG in Sodium Chlor 0.9% Inj 250 ML IV.SIG SCH (14:49)
[2018-02-21] MEDS ORDERED: Morphine Inj 4 MG/ML Vial IV.PUSH ONE (15:20)
[2018-02-21] MEDS ORDERED: Benzocaine 20% Oral Spray 60 ML Can OROPHARYNG ONE (15:21)
[2018-02-21] MEDS ORDERED: Lidocaine PF 1% Inj 30 ML Vial ONE (15:24)
[2018-02-21] MEDS ORDERED: HYDROmorphone PF Inj 1 MG/ML Ampul IV.PUSH STA (15:48)
--- NOTE | 2018-02-21 16:56 | P.PN ---
Subjective Interval history: Patient seen sitting up on side of bed. He reports some discomfort in his left forearm as well as a lot of wound drainage. No fever or chills. No nausea vomiting or diarrhea. He does tell me that he is hungry. Physical Exam Vital signs: Vital Signs 02/20/18 20:00 02/21/18 00:00 02/21/18 04:00 Temperature 98.9 F 98.6 F 97.9 F Pulse Rate 76 71 67 Respiratory Rate 20 18 17 Blood Pressure 145/108 H 151/100 H 132/92 H Pulse Oximetry 99 98 98 02/21/18 07:46 02/21/18 12:26 Temperature 97.8 F 98.7 F Pulse Rate 68 76 Respiratory Rate 18 16 Blood Pressure 124/81 119/81 Pulse Oximetry 98 96 Intake & Output 02/20/18 02/21/18 02/21/18 18:59 06:59 18:59 Intake Total 1240 / 1240 930 / 930 Output Total 510 / 510 450 / 450 Balance 730 / 730 480 / 480 Weight 49.9 kg Intake: IV 800 / 800 50 / 50 NS Inj 1,000 ML @ 100 mls/hr IV 800 / 800 .CONT .Q10H [facility] Rx#:[id number] Zosyn 3.375 GM Premix 50 ML @ 50 / 50 100 mls/hr IV.SIG Q6H [facility] Rx#: [id number] Oral 440 / 440 880 / 880 Output: Urine 510 / 510 450 / 450 Other: # Voids 1 Date of Last Bowel Movement 02/18/18 Narrative: GENERAL: Well-nourished, well-developed adult male in no obvious distress. SKIN: Warm and dry. +/- 1.5cm round lesion on anterior aspect of the left forearm. Localized erythema; no streaking. Surrounding area of induration. opened and draining purulent fluid. HEAD: Atraumatic. Normocephalic. CARDIOVASCULAR: Regular rate and rhythm. RESPIRATORY: No accessory muscle use. Clear to auscultation. Breath sounds equal bilaterally. GASTROINTESTINAL: Abdomen soft, non-tender, non-distended. Positive bowel sounds. MUSCULOSKELETAL: Extremities without clubbing, cyanosis, or edema. No obvious deformities. NEUROLOGICAL: Awake and alert. No obvious cranial nerve deficits. Motor grossly within normal limits. Normal speech. Results - Labs CBC & Chem 7: 02/19/18 14:09 02/20/18 22:37 Laboratory Results - last 24 hr 02/20/18 02/20/18 02/20/18 17:39 17:45 20:56 POC Glucose 591 H* 542 H* 474 H* Random Glucose 02/20/18 02/21/18 02/21/18 22:37 04:14 07:52 POC Glucose 348 H 503 H* Random Glucose 328 H 02/21/18 02/21/18 02/21/18 07:56 09:21 12:34 POC Glucose 335 H 316 H 426 H Random Glucose Assessment and Plan - Assessment (1) Uncontrolled diabetes mellitus Code(s): E11.65 - Type 2 diabetes mellitus with hyperglycemia Status: Chronic (2) Substance abuse Code(s): F19.10 - Other psychoactive substance abuse, uncomplicated Status: Chronic (3) Acute hyperglycemia Code(s): R73.9 - Hyperglycemia, unspecified Status: Acute (4) Non compliance w medication regimen Code(s): Z91.14 - Patient's other noncompliance with medication regimen Status : Chronic (5) SOB (shortness of breath) Code(s): R06.02 - Shortness of breath Status: Acute (6) Abscess of arm, left Code(s): L02.414 - Cutaneous abscess of left upper limb Status: Acute - Plan Patient is a 52-year-old -[place] Citizen male with a past medical history of uncontrolled diabetes, CHF, CAD status post stent, CKD, hep C, and cocaine abuse who presents to the emergency room for shortness of breath and a left arm wound. Upon admission he was found to have of blood glucose of over 900. Patient was recently in observation unit for same complaints and left AMA. He has a long history of noncompliance with medications. Severe hypoglycemia of over 900 -improving - history of diabetes on insulin. He is noncompliant. - Levemir + SS. -Consider discharging patient on oral medications versus insulin in hopes of increasing compliance. He has stated he will not use insulin outside of the hospital. Heart failure with shortness of breath - chronic -likely secondary to hyperglycemia -Admits to frequently smoking cocaine -chest CT indicates no acute process Skin lesion/Abscess - acute -Hand surgery consulted; debrided bedside 02/21/18. -Wound culture sent; monitor for sensitivities. -Zosyn and Vanco. Monitor kidney function. Hepatitis C - chronic -abnormal liver function -Review of records indicates known hepatitis C since at least 2014. Patient acknowledges that he never followed up. Will need outpatient treatment. -avoid hepatotoxins Acute kidney injury -resolved -2 L bolus in ED -Continue IVF with NS at 100 -stopped 01/20. Substance abuse -Counseled cessation DVT prophylaxis with SCD and early ambulation Discharge planning: Likely home when sugars are controlled.
[2018-02-21] MEDS ORDERED: Benzocaine 20% Top Spray 60 ML Can TOPICAL PRN (17:27)
--- NOTE | 2018-02-21 18:12 | MB ---
cc: ,Td Baldwin DATE: 02/21/2018 REQUESTING PHYSICIAN: Victorina Marinelli MD CONSULTING PHYSICIAN: Td Baldwin MD CHIEF COMPLAINT: Left forearm open wound. HISTORY OF PRESENT ILLNESS: Laci is a 52-year-old gentleman with multiple comorbidities including uncontrolled diabetes, coronary artery disease, status post stent, CHF, CKD, hepatitis C and cocaine abuse. He presents to the operating room with complaints of shortness of breath and a left arm wound. He had hyperglycemia on admission. He was placed on observation and then left AMA. He then re-presented. He had a long history of noncompliance with medications. Hand surgery consultation was requested for evaluation of his left volar forearm wound. He notes that the forearm wound has been progressing over the course of the last 4-5 days. He notes it was initially at the location of an IV site that secondarily became infected. He denies history of IV drug use. He denies paresthesias to the hand. He denies other complaints. PAST MEDICAL HISTORY: Includes coronary artery disease, chronic kidney disease, cardiomyopathy, SC, diabetes, uncontrolled. PAST SURGICAL HISTORY: Includes history of hernia repair, coronary artery disease, status post stenting. FAMILY HISTORY: Noncontributory. SOCIAL HISTORY: Endorses cocaine abuse. Former smoker. Denies alcohol use. MEDICATIONS: Per hospital chart. ALLERGIES: NO KNOWN DRUG ALLERGIES. REVIEW OF SYSTEMS: GENERAL: No fever or chills. ABDOMEN: No nausea or vomiting. LUNGS: No wheezing or cough. CARDIAC: No chest pain. MUSCULOSKELETAL: Left forearm wound and associated pain. NEUROLOGIC: No numbness or tingling. PSYCHIATRIC: No anxiety or depression. PHYSICAL EXAMINATION: GENERAL: He is alert and oriented x 3 with a normal mood and affect. MUSCULOSKELETAL: Focused evaluation of left volar forearm demonstrates a 2 cm circumferential full-thickness wound overlying the volar forearm, in zone 5. This is overlying the volar forearm flexor compartment. There is no evidence of purulence within the base of the wound. There is a clot at the center of the wound. There is no exposed tendon deep within the wound. He has full hand range of motion. Sensation is intact in the median, radial, ulnar nerve distribution. There is no erythema, no epitrochlear, or axillary lymphadenopathy. ABDOMEN: Soft, nondistended. NEUROLOGIC: As per above. RESPIRATORY: Nonlabored breathing. HEENT: Atraumatic, normocephalic. SKIN: As noted above in musculoskeletal section. LABORATORY DATA: White blood cell count of 4.2 on 02/19/2018. IMAGING: Independent review of the CT scan demonstrates a superficial volar forearm fluid collection suggestive of hematoma versus abscess. IMPRESSION: A 52-year-old, right-hand dominant male with significant comorbidities including uncontrolled diabetes, CHF, coronary artery disease, CKD, hepatitis C, cocaine abuse, presents with a left volar forearm wound of 1 week duration. He notes that this started at the former site of an IV line. He denies IV drug use. On evaluation, he has no evidence of superficial or deep abscess. He has a full-thickness circumferential wound about the volar forearm compartment at the muscle body level. There are no underlying exposed tendons. PLAN: I discussed recommendations for nonoperative management. We discussed IV antibiotics per primary and infectious disease. Recommend local wound care alone. Wet-to-dry dressings with twice-daily packing changes with a 1-inch packing gauze. He may then cover this with 4 x 4's, Kerlix, and an Brennen wrap. We discussed that this may take upwards of 3-4 weeks to fully resolve, and that local wound care alone will allow this to heal via secondary intention. We discussed that hand surgery consultation may be requested again, should his symptoms fail to improve or should he acutely worsen. He may follow up in our clinic in 1-2 weeks for evaluation of his wound. Again, recommend continued medical management. No plans for surgical intervention. All questions and concerns were addressed at bedside and with consulting provider. Td Baldwin MD, CM/boris , 03:44 PM , 03:52 PM
[2018-02-21] MEDS: Insulin Detemir Inj 1,000 UNIT/10 ML Vial SQ SCH (21:20)
[2018-02-22] MEDS: Piperacil/Tazo 3.375 GM Premix 50 ML IV.SIG SCH ×3 (02:24→14:09)
[2018-02-22] MEDS: Vancomycin Inj 1,000 MG in Sodium Chlor 0.9% Inj 250 ML IV.SIG SCH ×2 (02:58→14:35)
[2018-02-22] MEDS: Insulin Detemir Inj 1,000 UNIT/10 ML Vial SQ SCH (09:15)
[2018-02-22] MEDS: Lisinopril 5 MG Tablet PO SCH (09:15)
[2018-02-22] MEDS: Senna/Docusate Sodium 8.6/50 MG Tablet PO SCH (09:15)
[2018-02-22] MEDS: Insulin NovoLOG Aspart Correctional Sugar Inj SQ SCH ×2 (09:16→13:01)
--- NOTE | 2018-02-22 10:25 | P.PNIM ---
Subjective Interval history: Cultures pending regarding abscess of left forearm. Blood sugars have better control. However, control is obtained with Levemir and this patient is homeless. He will not be able to afford Levemir, he will not have her refrigeration option for his Levemir, he cannot keep his needles clean. Other treatment options will be tested prior to consideration for discharge. Physical Exam Vital signs: Vital Signs 02/21/18 12:26 02/21/18 17:01 02/21/18 20:00 Temperature 98.7 F 98.9 F 98.9 F Pulse Rate 76 86 90 Respiratory Rate 16 16 16 Blood Pressure 119/81 153/74 H 115/78 Pulse Oximetry 96 97 98 02/22/18 00:00 02/22/18 04:00 02/22/18 08:00 Temperature 98.9 F 98.8 F 97.3 F L Pulse Rate 88 89 64 Respiratory Rate 17 16 18 Blood Pressure 122/76 117/79 107/73 Pulse Oximetry 97 98 95 Intake & Output 02/21/18 02/22/18 02/22/18 18:59 06:59 18:59 Intake Total 1180 / 1180 350 / 350 50 / 50 Output Total 450 / 450 Balance 730 / 730 350 / 350 50 / 50 Intake: IV 300 / 300 350 / 350 50 / 50 Zosyn 3.375 GM Premix 50 ML @ 50 / 50 100 / 100 50 / 50 100 mls/hr IV.SIG Q6H [facility] Rx#: [id number] Vancomycin Inj 1,000 MG In NS 250 / 250 250 / 250 Inj 250 ML @ 250 mls/hr IV.SIG Q12H [facility] Rx#:[id number] Oral 880 / 880 Output: Urine 450 / 450 Other: # Voids 1 Date of Last Bowel Movement 02/21/18 02/21/18 Narrative: GENERAL: NAD, A&Ox3 HEAD: Normocephalic. NECK: Supple, trachea midline. No lymphadenopathy. EYES: No scleral icterus. No injection or drainage. CARDIOVASCULAR: Regular rate and rhythm without murmurs, gallops, or rubs. RESPIRATORY: Breath sounds equal bilaterally. No accessory muscle use. GASTROINTESTINAL: Abdomen soft, non-tender, nondistended. MUSCULOSKELETAL: No cyanosis, or edema. Left forearm bandaged. SKIN: Warm and dry. NEURO: No focal neurological deficits. Results - Labs CBC & Chem 7: 02/19/18 14:09 02/21/18 20:37 Laboratory Results - last 24 hr 02/21/18 02/21/18 02/21/18 12:34 17:48 19:53 POC Glucose 426 H 432 H 483 H* Random Glucose 02/21/18 02/21/18 02/22/18 20:37 23:40 04:07 POC Glucose 561 H* 315 H Random Glucose 476 H* D 02/22/18 08:07 POC Glucose 202 H Random Glucose Assessment and Plan - Assessment (1) Uncontrolled diabetes mellitus Code(s): E11.65 - Type 2 diabetes mellitus with hyperglycemia Status: Chronic (2) Substance abuse Code(s): F19.10 - Other psychoactive substance abuse, uncomplicated Status: Chronic (3) Acute hyperglycemia Code(s): R73.9 - Hyperglycemia, unspecified Status: Acute (4) Non compliance w medication regimen Code(s): Z91.14 - Patient's other noncompliance with medication regimen Status : Chronic (5) SOB (shortness of breath) Code(s): R06.02 - Shortness of breath Status: Acute (6) Abscess of arm, left Code(s): L02.414 - Cutaneous abscess of left upper limb Status: Acute - Plan 52-year-old -[place] male admitted secondary to severe hyperglycemia, uncontrolled diabetes, and left forearm abscess Uncontrolled diabetes Severe hyperglycemia Patient controlled on insulin Patient is refusing to use insulin as an outpatient he wants to try oral options will test p.o. options as patient cannot afford insulin and is not a good candidate for insulin given homeless status Chronic systolic congestive heart failure No exacerbation Chronic condition Avoidance of cocaine recommended Left forearm abscess Patient had debridement with surgeon on 02/21/2018 Wound cultures pending Continue Zosyn Continue vancomycin Probiotics Hepatitis C Chronic Standard precautions Acute kidney injury Resolved Substance abuse Hx Counseled cessation DVT prophylaxis Patient is ambulatory Discharge planning Awaiting cultures Transition to outpatient diabetes treatments and monitor blood sugars to determine appropriate dosing and stability
[2018-02-22 12:22] VITALS: BP 125/69; PULSE 65; RESP 16; TEMP 98.6; O2SAT 97
[2018-02-22] MEDS ORDERED: Lactobacillus Acidophilus/L. Spores Tablet PO SCH (13:00)
[2018-02-22] MEDS ORDERED: glipiZIDE 5 MG Tablet PO SCH (17:00)
[2018-02-23] MEDS ORDERED: Pharmacy Ordered Lab Info OTHER ONE (01:45)
== END 2018-02-22 15:40 | disposition left against medical advice (07) ==
LOC: NEPE 13:39 → NEDA 13:39 → NEPFCDU 19:49
PROVIDERS: ADMIT Hospitalist; ATTEND Hospitalist

== ENCOUNTER 2018-03-04 09:44 | Observation (INO) ==
--- NOTE | 2018-03-04 10:33 | ED ---
HPI General Chief complaint: Diabetic Stated complaint: High glucose Time Seen by Provider: 03/04/18 10:14 History of Present Illness HPI narrative: Patient is a 52-year-old -[place] homeless male, with history of insulin dependent diabetes, on metformin and insulin, noncompliant with his medications, cocaine user, presented to emergency room for generalized weakness, blood sugar is high. Patient is known to staff, is here often. She denies chest pain, shortness of breath, abdominal pain. Related Data Home Medications Medication Instructions Recorded Confirmed aspirin 81 mg PO DAILY 03/04/18 03/04/18 carvedilol 3.125 mg PO BID 03/04/18 03/04/18 clopidogrel 75 mg PO DAILY 03/04/18 03/04/18 metformin 500 mg PO BID 03/04/18 03/04/18 Allergies Allergy/AdvReac Type Severity Reaction Status Date / Time No Known Allergies Allergy Verified 02/23/18 10:54 Review of Systems ROS: all other systems reviewed are negative Constitutional Reports fatigue and Reports weakness PMFSH Social History Social History Substance History: Active Abuse Second Hand Smoke Exposure: Yes Smoking Status: Former smoker Tobacco Type: Cigarettes How Often Do You Have a Drink Containing Alcohol: Never Recent Travel in [facility] within the Last 8 Weeks: No Recent Out of Country Travel within the Last 8 Weeks: No Substance Abuse Detail Crack/Cocaine: Substance Use Status: Active Route Used Substance Abuse: Inhalation Immunization History Tetanus Immunization: >5 Years Exam Narrative Exam Narrative: GENERAL: 52-year-old cachectic male. In no apparent distress. SKIN: Focused skin assessment warm/dry. HEAD: Atraumatic. Normocephalic. EYES: Pupils equal and round. No scleral icterus. No injection or drainage. ENT: No nasal bleeding or discharge. Mucous membranes pink and moist. NECK: Trachea midline. No JVD. CARDIOVASCULAR: Regular rate and rhythm. No murmur appreciated. RESPIRATORY: No accessory muscle use. Clear to auscultation. Breath sounds equal bilaterally. GASTROINTESTINAL: Abdomen soft, non-tender, nondistended. Hepatic and splenic margins not palpable. MUSCULOSKELETAL: No obvious deformities. No clubbing. No cyanosis. No edema. NEUROLOGICAL: Awake and alert. No obvious cranial nerve deficits. Motor grossly within normal limits. Normal speech. PSYCHIATRIC: Appropriate mood and affect; insight and judgment normal. Course Initial Documented Vital Signs Pulse Rate 70 03/04/18 09:57 Respiratory Rate 17 03/04/18 09:57 Blood Pressure 156/110 H 03/04/18 09:57 Pulse Oximetry 100 03/04/18 09:57 Last Documented Vital Signs Temperature 97.8 F 03/05/18 04:00 Pulse Rate 65 03/05/18 04:00 Respiratory Rate 16 03/05/18 04:00 Blood Pressure 134/94 H 03/05/18 04:00 Pulse Oximetry 100 03/05/18 04:00 Medical Decision Making MDM Narrative Medical decision making narrative: Hyperglycemia workup Ordered, IV fluids given , 5 units of insulin given. Reevaluation is pending. Medical Screen Exam Complete: Yes Emergency Medical Condition: Yes Differential Diagnosis Differential Diagnosis: Hyperglycemia versus DKA Lab Data Result diagrams: 03/04/18 10:30 03/04/18 10:30 Lab Results 03/04/18 03/04/18 03/04/18 Range/Units 10:09 10:30 10:30 WBC 5.3 (4.0-11.0) th/mm3 RBC 4.80 (4.50-5.90) mil/mm3 Hgb 13.5 (13.0-17.0) gm/dL Hct 42.0 (39.0-51.0) % MCV 87.5 (80.0-100.0) fL MCH 28.1 (27.0-34.0) pg MCHC 32.1 (32.0-36.0) % RDW 13.9 (11.6-17.2) % Plt Count 247 D (150-450) th/mm3 MPV 9.5 (7.0-11.0) fL Neut % (Auto) 72.6 H (16.0-70.0) % Lymph % (Auto) 19.1 (9.0-44.0) % Overton % (Auto) 6.9 (0.0-8.0) % Eos % (Auto) 0.9 (0.0-4.0) % Baso % (Auto) 0.5 (0.0-2.0) % Neut # (Auto) 3.8 (1.8-7.7) th/mm3 Lymph # (Auto) 1.0 (1.0-4.8) th/mm3 Overton # (Auto) 0.4 (0.0-0.9) th/mm3 Eos # (Auto) 0.0 (0.0-0.4) th/mm3 Baso # (Auto) 0.0 (0.0-0.2) th/mm3 WBC Differential . Differential Comment Auto diff final Puncture Site Patient Temperature O2 Saturation (90-100) % ABG pH (7.380-7.420) ABG pCO2 (38-42) mmHg ABG pO2 (61-120) mmHg ABG HCO3 (22-26) mmol/L ABG O2 Content (12.0-20.0) Vol % ABG Base Excess (-2-2) mmol/L ABG Methemoglobin (0-2) % [place] Test Hemoglobin (12.0-16.0) G/DL Carboxyhemoglobin (0-4) % O2 Delivery Device Inspired O2 % Critical Value Sodium 130 L (136-145) meq/L Potassium 4.9 (3.5-5.1) meq/L Chloride 94 L (98-107) meq/L Carbon Dioxide 25.3 (21.0-32.0) meq/L Anion Gap 11 (5-15) meq/L BUN 29 H (7-18) mg/dL Creatinine 1.42 H (0.60-1.30) mg/dL Estimated GFR 63 L (>89) mL/min POC Glucose Greater than 600 H* (68-110) mg/dl Random Glucose 651 H* (74-106) mg/dL Calcium 9.1 (8.5-10.1) mg/dL Total Bilirubin 0.4 (0.2-1.0) mg/dL AST 63 H (15-37) U/L ALT 142 H (12-78) U/L Alkaline Phosphatase 100 (45-117) U/L Total Creatine Kinase 161 (39-308) U/L Total Protein 8.0 (6.4-8.2) g/dL Albumin 3.8 (3.4-5.0) g/dL Beta-Hydroxybutyric Acd 1.69 H (0.00-0.39) mmol/L Urine Opiates Screen (Neg) Ur Barbiturates Screen (Neg) Ur Amphetamines Screen (Neg) U Benzodiazepines Scrn (Neg) Urine Cocaine Screen (Neg) U Cannabinoids Screen (Neg) 03/04/18 03/04/18 03/04/18 Range/Units 10:30 10:30 11:29 WBC (4.0-11.0) th/mm3 RBC (4.50-5.90) mil/mm3 Hgb (13.0-17.0) gm/dL Hct (39.0-51.0) % MCV (80.0-100.0) fL MCH (27.0-34.0) pg MCHC (32.0-36.0) % RDW (11.6-17.2) % Plt Count (150-450) th/mm3 MPV (7.0-11.0) fL Neut % (Auto) (16.0-70.0) % Lymph % (Auto) (9.0-44.0) % Overton % (Auto) (0.0-8.0) % Eos % (Auto) (0.0-4.0) % Baso % (Auto) (0.0-2.0) % Neut # (Auto) (1.8-7.7) th/mm3 Lymph # (Auto) (1.0-4.8) th/mm3 Overton # (Auto) (0.0-0.9) th/mm3 Eos # (Auto) (0.0-0.4) th/mm3 Baso # (Auto) (0.0-0.2) th/mm3 WBC Differential Differential Comment Puncture Site Patient Temperature O2 Saturation (90-100) % ABG pH (7.380-7.420) ABG pCO2 (38-42) mmHg ABG pO2 (61-120) mmHg ABG HCO3 (22-26) mmol/L ABG O2 Content (12.0-20.0) Vol % ABG Base Excess (-2-2) mmol/L ABG Methemoglobin (0-2) % [place] Test Hemoglobin (12.0-16.0) G/DL Carboxyhemoglobin (0-4) % O2 Delivery Device Inspired O2 % Critical Value Sodium (136-145) meq/L Potassium (3.5-5.1) meq/L Chloride (98-107) meq/L Carbon Dioxide (21.0-32.0) meq/L Anion Gap (5-15) meq/L BUN (7-18) mg/dL Creatinine (0.60-1.30) mg/dL Estimated GFR (>89) mL/min POC Glucose Greater than 600 H* (68-110) mg/dl Random Glucose (74-106) mg/dL Calcium (8.5-10.1) mg/dL Total Bilirubin (0.2-1.0) mg/dL AST (15-37) U/L ALT (12-78) U/L Alkaline Phosphatase (45-117) U/L Total Creatine Kinase Cancelled (39-308) U/L Total Protein (6.4-8.2) g/dL Albumin (3.4-5.0) g/dL Beta-Hydroxybutyric Acd Cancelled (0.00-0.39) mmol/L Urine Opiates Screen (Neg) Ur Barbiturates Screen (Neg) Ur Amphetamines Screen (Neg) U Benzodiazepines Scrn (Neg) Urine Cocaine Screen (Neg) U Cannabinoids Screen (Neg) 03/04/18 03/04/18 03/04/18 Range/Units 12:03 12:44 12:46 WBC (4.0-11.0) th/mm3 RBC (4.50-5.90) mil/mm3 Hgb (13.0-17.0) gm/dL Hct (39.0-51.0) % MCV (80.0-100.0) fL MCH (27.0-34.0) pg MCHC (32.0-36.0) % RDW (11.6-17.2) % Plt Count (150-450) th/mm3 MPV (7.0-11.0) fL Neut % (Auto) (16.0-70.0) % Lymph % (Auto) (9.0-44.0) % Overton % (Auto) (0.0-8.0) % Eos % (Auto) (0.0-4.0) % Baso % (Auto) (0.0-2.0) % Neut # (Auto) (1.8-7.7) th/mm3 Lymph # (Auto) (1.0-4.8) th/mm3 Overton # (Auto) (0.0-0.9) th/mm3 Eos # (Auto) (0.0-0.4) th/mm3 Baso # (Auto) (0.0-0.2) th/mm3 WBC Differential Differential Comment Puncture Site Left radial Patient Temperature 98.6 O2 Saturation 95 (90-100) % ABG pH 7.39 (7.380-7.420) ABG pCO2 43 H (38-42) mmHg ABG pO2 99 (61-120) mmHg ABG HCO3 26 (22-26) mmol/L ABG O2 Content 16.8 (12.0-20.0) Vol % ABG Base Excess 1.4 (-2-2) mmol/L ABG Methemoglobin 0.6 (0-2) % Salvador Test Y Hemoglobin 12.4 (12.0-16.0) G/DL Carboxyhemoglobin 1.8 (0-4) % O2 Delivery Device Room air Inspired O2 21 % Critical Value No Sodium (136-145) meq/L Potassium (3.5-5.1) meq/L Chloride (98-107) meq/L Carbon Dioxide (21.0-32.0) meq/L Anion Gap (5-15) meq/L BUN (7-18) mg/dL Creatinine (0.60-1.30) mg/dL Estimated GFR (>89) mL/min POC Glucose 548 H* (68-110) mg/dl Random Glucose (74-106) mg/dL Calcium (8.5-10.1) mg/dL Total Bilirubin (0.2-1.0) mg/dL AST (15-37) U/L ALT (12-78) U/L Alkaline Phosphatase (45-117) U/L Total Creatine Kinase (39-308) U/L Total Protein (6.4-8.2) g/dL Albumin (3.4-5.0) g/dL Beta-Hydroxybutyric Acd (0.00-0.39) mmol/L Urine Opiates Screen Neg (Neg) Ur Barbiturates Screen Neg (Neg) Ur Amphetamines Screen Neg (Neg) U Benzodiazepines Scrn Neg (Neg) Urine Cocaine Screen Pos H (Neg) U Cannabinoids Screen Neg (Neg) 03/04/18 03/04/18 03/04/18 Range/Units 14:14 16:55 18:45 WBC (4.0-11.0) th/mm3 RBC (4.50-5.90) mil/mm3 Hgb (13.0-17.0) gm/dL Hct (39.0-51.0) % MCV (80.0-100.0) fL MCH (27.0-34.0) pg MCHC (32.0-36.0) % RDW (11.6-17.2) % Plt Count (150-450) th/mm3 MPV (7.0-11.0) fL Neut % (Auto) (16.0-70.0) % Lymph % (Auto) (9.0-44.0) % Overton % (Auto) (0.0-8.0) % Eos % (Auto) (0.0-4.0) % Baso % (Auto) (0.0-2.0) % Neut # (Auto) (1.8-7.7) th/mm3 Lymph # (Auto) (1.0-4.8) th/mm3 Overton # (Auto) (0.0-0.9) th/mm3 Eos # (Auto) (0.0-0.4) th/mm3 Baso # (Auto) (0.0-0.2) th/mm3 WBC Differential Differential Comment Puncture Site Patient Temperature O2 Saturation (90-100) % ABG pH (7.380-7.420) ABG pCO2 (38-42) mmHg ABG pO2 (61-120) mmHg ABG HCO3 (22-26) mmol/L ABG O2 Content (12.0-20.0) Vol % ABG Base Excess (-2-2) mmol/L ABG Methemoglobin (0-2) % [place] Test Hemoglobin (12.0-16.0) G/DL Carboxyhemoglobin (0-4) % O2 Delivery Device Inspired O2 % Critical Value Sodium (136-145) meq/L Potassium (3.5-5.1) meq/L Chloride (98-107) meq/L Carbon Dioxide (21.0-32.0) meq/L Anion Gap (5-15) meq/L BUN (7-18) mg/dL Creatinine (0.60-1.30) mg/dL Estimated GFR (>89) mL/min POC Glucose 162 H 401 H 390 H (68-110) mg/dl Random Glucose (74-106) mg/dL Calcium (8.5-10.1) mg/dL Total Bilirubin (0.2-1.0) mg/dL AST (15-37) U/L ALT (12-78) U/L Alkaline Phosphatase (45-117) U/L Total Creatine Kinase (39-308) U/L Total Protein (6.4-8.2) g/dL Albumin (3.4-5.0) g/dL Beta-Hydroxybutyric Acd (0.00-0.39) mmol/L Urine Opiates Screen (Neg) Ur Barbiturates Screen (Neg) Ur Amphetamines Screen (Neg) U Benzodiazepines Scrn (Neg) Urine Cocaine Screen (Neg) U Cannabinoids Screen (Neg) 03/04/18 Range/Units 21:28 WBC (4.0-11.0) th/mm3 RBC (4.50-5.90) mil/mm3 Hgb (13.0-17.0) gm/dL Hct (39.0-51.0) % MCV (80.0-100.0) fL MCH (27.0-34.0) pg MCHC (32.0-36.0) % RDW (11.6-17.2) % Plt Count (150-450) th/mm3 MPV (7.0-11.0) fL Neut % (Auto) (16.0-70.0) % Lymph % (Auto) (9.0-44.0) % Overton % (Auto) (0.0-8.0) % Eos % (Auto) (0.0-4.0) % Baso % (Auto) (0.0-2.0) % Neut # (Auto) (1.8-7.7) th/mm3 Lymph # (Auto) (1.0-4.8) th/mm3 Overton # (Auto) (0.0-0.9) th/mm3 Eos # (Auto) (0.0-0.4) th/mm3 Baso # (Auto) (0.0-0.2) th/mm3 WBC Differential Differential Comment Puncture Site Patient Temperature O2 Saturation (90-100) % ABG pH (7.380-7.420) ABG pCO2 (38-42) mmHg ABG pO2 (61-120) mmHg ABG HCO3 (22-26) mmol/L ABG O2 Content (12.0-20.0) Vol % ABG Base Excess (-2-2) mmol/L ABG Methemoglobin (0-2) % [place] Test Hemoglobin (12.0-16.0) G/DL Carboxyhemoglobin (0-4) % O2 Delivery Device Inspired O2 % Critical Value Sodium (136-145) meq/L Potassium (3.5-5.1) meq/L Chloride (98-107) meq/L Carbon Dioxide (21.0-32.0) meq/L Anion Gap (5-15) meq/L BUN (7-18) mg/dL Creatinine (0.60-1.30) mg/dL Estimated GFR (>89) mL/min POC Glucose 301 H (68-110) mg/dl Random Glucose (74-106) mg/dL Calcium (8.5-10.1) mg/dL Total Bilirubin (0.2-1.0) mg/dL AST (15-37) U/L ALT (12-78) U/L Alkaline Phosphatase (45-117) U/L Total Creatine Kinase (39-308) U/L Total Protein (6.4-8.2) g/dL Albumin (3.4-5.0) g/dL Beta-Hydroxybutyric Acd (0.00-0.39) mmol/L Urine Opiates Screen (Neg) Ur Barbiturates Screen (Neg) Ur Amphetamines Screen (Neg) U Benzodiazepines Scrn (Neg) Urine Cocaine Screen (Neg) U Cannabinoids Screen (Neg) Imaging Data Radiologist's impression: Upper Extremity Ultrasound 03/04/18 00:00 CONCLUSION: Hyperemia of the anterior mid left forearm suggesting inflammation. There is a subcutaneous collection measuring 4.4 x 0.9 x 2.0 cm likely representing a complex fluid collection. Suggest correlating with the clinical history to determine etiology but infection or hematoma are the most common possible etiologies. Discharge Plan Discharge Disposition Patient Disposition: ED Admit(ED Internal Use Only) Discharge Condition Condition: Fair Discharge Details Diagnosis: Acute hyperglycemia, Acute kidney insufficiency Physicians Team ED Provider: Atif Mullen Primary Care Provider: Primary Care Harvey,Radha Attending Provider: Hilton Reyes Other Providers: Arturo Baldwin Status ED Status: Left Department Discharge Information Discharge Date/Time: 03/04/18 15:46
[2018-03-04] MEDS: Sod Chloride 0.9% Inj 1,000 ML IV.SIG SCH ×5 (10:55→13:50)
[2018-03-04 11:01] LABS: Baso % (Auto) 0.5 % (0.0-2.0); Eos % (Auto) 0.9 % (0.0-4.0); Hemoglobin 13.5 gm/dL (13.0-17.0); Lymph % (Auto) 19.1 % (9.0-44.0); Mean Corpuscular HGB Conc 32.1 % (32.0-36.0); Mean Corpuscular Hemoglobin 28.1 pg (27.0-34.0); Mean Corpuscular Volume 87.5 fL (80.0-100.0); Mean Platelet Volume 9.5 fL (7.0-11.0); Mono # (Auto) 0.4 th/mm3 (0.0-0.9); Mono % (Auto) 6.9 % (0.0-8.0); Neut # (Auto) 3.8 th/mm3 (1.8-7.7); Neut % (Auto) 72.6 % (16.0-70.0); Platelet Count 247 th/mm3 (150-450); Red Cell Distribution Width 13.9 % (11.6-17.2); White Blood Count 5.3 th/mm3 (4.0-11.0)
[2018-03-04 11:22] LABS: Alanine Aminotransferase 142 U/L (12-78); Albumin 3.8 g/dL (3.4-5.0); Alkaline Phosphatase 100 U/L (45-117); Anion Gap 11 meq/L (5-15); Aspartate Aminotransferase 63 U/L (15-37); Beta Hydroxybutyric Acid 1.69 mmol/L (0.00-0.39); Blood Urea Nitrogen 29 mg/dL (7-18); Calcium 9.1 mg/dL (8.5-10.1); Carbon Dioxide 25.3 meq/L (21.0-32.0); Chloride 94 meq/L (98-107); Creatine Kinase 161 U/L (39-308); Glomerular Filtration Rate 63 mL/min (>89); Potassium 4.9 meq/L (3.5-5.1); Sodium 130 meq/L (136-145)
[2018-03-04 11:27] LABS: Glucose,Random 651 mg/dL (74-106)
[2018-03-04] MEDS ORDERED: Insulin Regular (For Infusion) 100 UNIT in Sodium Chlor 0.9% Inj 99 ML IV.CONT PRN (11:45)
[2018-03-04 12:10] LABS: ABG Base Excess 1.4 mmol/L (-2-2); ABG PCO2 43 mmHg (38-42); ABG PO2 99 mmHg (61-120)
[2018-03-04] MEDS: Sod Chloride 0.9% Inj 1,000 ML IV.CONT SCH ×4 (12:10→22:10)
[2018-03-04] MEDS ORDERED: Dextrose 50% in Water 50 ML Vial IV.PUSH PRN (12:50)
[2018-03-04 13:46] LABS: Amphetamine Screen,Urine Neg (Neg); Barbiturate Screen,Urine Neg (Neg); Cannabinoid Screen,Urine Neg (Neg); Cocaine Screen,Urine Pos (Neg)
[2018-03-04 13:56] LABS: Opiate Screen,Urine Neg (Neg)
--- NOTE | 2018-03-04 15:04 | P.HP ---
History of Present Illness Primary Care Physician: No Primary Care Physician History of Present Illness: 52-year-old black male being admitted for acute kidney injury. 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 Says he felt that his sugar was high. Denies having any shortness of breath or chest pain. Reports having pain in his left forearm which upon examination has exposed subcutaneous tissue. Chart review indicates that he has been evaluated by hand surgery who recommended medical management for an abscess with wet-to-dry dressings and packing. Patient is overall a poor historian, says he has been taking only 3 pills, metformin, aspirin, and some third pill. He was brought by ambulance. In the emergency department glucoses were in the 600s. Hydroxybutyrate was elevated but no increased anion gap. Creatinine was elevated at 1.42. Patient given IV fluids and 15 units of insulin. Review of Systems All other systems reviewed negative except as stated in HPI PMFSH - History History Provided By: Patient - Medical History Medical History: Medical History (Last Reviewed 03/04/18 @ 15:00 by Hilton Reyes MD) CAD (coronary artery disease) (Acute) Chronic kidney disease (Acute) Cardiomyopathy (Acute) Heart attack (Acute) Abdominal hernia (Acute) Diabetes (Acute) - Surgical History Surgical History: Surgical History (Last Reviewed 03/04/18 @ 15:00 by Hilton Reyes MD) Stented coronary artery (Acute) Hx of hernia repair - Family History Family History: Family History (Last Reviewed 03/04/18 @ 15:00 by Hilton Reyes MD) Mother Family history of diabetes mellitus - Tobacco History Second Hand Smoke Exposure: Yes Smoking Status: Former smoker Tobacco Type: Cigarettes - Alcohol History How Often Do You Have a Drink Containing Alcohol: Never - Substance Use History Substance History: Active Abuse - Substance Use Type Crack/Cocaine Status: Active Route Used: Inhalation - Travel History Recent Travel in the [place] Within the Last 8 Weeks: No Recent Travel Out of the Country Within the Last 8 Weeks: No - Immunization History Tetanus Immunization: >5 Years Medications and Allergies Active Medications: Active Medications Dextrose (D50w Vial) 50 ml IV.PUSH UNSCH PRN PRN Reason: PER HYPOGLYCEMIA PROTOCOL Glucagon (Glucagon Inj) 1 mg OTHER PRN PRN PRN Reason: for Hypoglycemia Protocol Sodium Chloride (Ns Inj) 1,000 mls @ 250 mls/hr IV.CONT .Q4H [facility] Last Admin: 03/04/18 12:10 Dose: 250 mls/hr Insulin Aspart (Novolog Insulin Correctional Sugar Inj) 0 unit SQ ACHS [facility]; Protocol Sodium Chloride (Ns Flush) 2 ml IV.FLUSH BID [facility] Sodium Chloride (Ns Flush) 2 ml IV.FLUSH PRN PRN PRN Reason: FLUSH AFTER USING IV ACCESS Allergies Allergy/AdvReac Type Severity Reaction Status Date / Time No Known Allergies Allergy Verified 02/23/18 10:54 Home Medications Medication Instructions Recorded Confirmed Type aspirin 81 mg PO DAILY 03/04/18 03/04/18 History carvedilol 3.125 mg PO BID 03/04/18 03/04/18 History clopidogrel 75 mg PO DAILY 03/04/18 03/04/18 History metformin 500 mg PO BID 03/04/18 03/04/18 History Exam Vital signs: Vital Signs 03/04/18 09:57 03/04/18 10:33 03/04/18 11:00 Temperature 97.9 F Pulse Rate 70 72 68 Respiratory Rate 17 19 14 Blood Pressure 156/110 H 145/99 H 141/97 H Pulse Oximetry 100 98 98 03/04/18 12:00 03/04/18 13:00 03/04/18 14:00 Temperature Pulse Rate 78 66 73 Respiratory Rate 12 17 16 Blood Pressure 157/106 H 141/97 H 125/84 Pulse Oximetry 97 97 98 Intake & Output 03/03/18 03/04/18 03/04/18 18:59 06:59 18:59 Intake Total 3000 / 3000 Balance 3000 / 3000 Weight 57.153 kg Intake: IV 3000 / 3000 NS Inj 1,000 ML @ 1000 mls/hr 3000 / 3000 IV.SIG .Q1H [facility] Rx#:[id number] Narrative: VS: afebrile GENERAL: Thin, underweight middle-aged male who appears older than his stated age, smells of urine SKIN: Warm and dry. EYES: Pupils equal and round. ENT: No nasal bleeding or discharge. Mucous membranes pink and moist. CARDIOVASCULAR: Regular rate and rhythm. no murmurs RESPIRATORY: No accessory muscle use. Clear to auscultation. Breath sounds equal bilaterally. GASTROINTESTINAL: Abdomen soft, non-tender, nondistended. Extremities: No clubbing, cyanosis, or edema. No obvious deformities. Left forearm has exposed subcutaneous tissue around the midshaft length, has also some subcutaneous tender nonfluctuant edematous areas tracking along the anterior element between the midshaft towards the AC fossa Musculoskeletal: 3/5 proximal upper extremity strength including fist plaster machine tender, 4/5 proximal hip flexor strength bilaterally NEUROLOGICAL: Awake and alert. No obvious cranial nerve deficits. No facial droop nor slurred speech noted. PSYCHIATRIC: Appropriate mood and affect; insight and judgment normal. Results - Labs CBC & Chem 7: 03/04/18 10:30 03/05/18 05:45 Labs: Laboratory Results - last 24 hr 03/04/18 03/04/18 03/04/18 10:09 10:30 10:30 WBC 5.3 RBC 4.80 Hgb 13.5 Hct 42.0 MCV 87.5 MCH 28.1 MCHC 32.1 RDW 13.9 Plt Count 247 D MPV 9.5 Neut % (Auto) 72.6 H Lymph % (Auto) 19.1 [place] % (Auto) 6.9 Eos % (Auto) 0.9 Baso % (Auto) 0.5 Neut # (Auto) 3.8 Lymph # (Auto) 1.0 [place] # (Auto) 0.4 Eos # (Auto) 0.0 Baso # (Auto) 0.0 WBC Differential . Differential Comment Auto diff final Puncture Site Patient Temperature O2 Saturation ABG pH ABG pCO2 ABG pO2 ABG HCO3 ABG O2 Content ABG Base Excess ABG Methemoglobin [place] Test Hemoglobin Carboxyhemoglobin O2 Delivery Device Inspired O2 Critical Value Sodium 130 L Potassium 4.9 Chloride 94 L Carbon Dioxide 25.3 Anion Gap 11 BUN 29 H Creatinine 1.42 H Estimated GFR 63 L POC Glucose Greater than 600 H* Random Glucose 651 H* Calcium 9.1 Total Bilirubin 0.4 AST 63 H ALT 142 H Alkaline Phosphatase 100 Total Creatine Kinase 161 Total Protein 8.0 Albumin 3.8 Beta-Hydroxybutyric Acd 1.69 H Urine Opiates Screen Ur Barbiturates Screen Ur Amphetamines Screen U Benzodiazepines Scrn Urine Cocaine Screen U Cannabinoids Screen 03/04/18 03/04/18 03/04/18 10:30 10:30 11:29 WBC RBC Hgb Hct MCV MCH MCHC RDW Plt Count MPV Neut % (Auto) Lymph % (Auto) [place] % (Auto) Eos % (Auto) Baso % (Auto) Neut # (Auto) Lymph # (Auto) [place] # (Auto) Eos # (Auto) Baso # (Auto) WBC Differential Differential Comment Puncture Site Patient Temperature O2 Saturation ABG pH ABG pCO2 ABG pO2 ABG HCO3 ABG O2 Content ABG Base Excess ABG Methemoglobin [place] Test Hemoglobin Carboxyhemoglobin O2 Delivery Device Inspired O2 Critical Value Sodium Potassium Chloride Carbon Dioxide Anion Gap BUN Creatinine Estimated GFR POC Glucose Greater than 600 H* Random Glucose Calcium Total Bilirubin AST ALT Alkaline Phosphatase Total Creatine Kinase Cancelled Total Protein Albumin Beta-Hydroxybutyric Acd Cancelled Urine Opiates Screen Ur Barbiturates Screen Ur Amphetamines Screen U Benzodiazepines Scrn Urine Cocaine Screen U Cannabinoids Screen 03/04/18 03/04/18 03/04/18 12:03 12:44 12:46 WBC RBC Hgb Hct MCV MCH MCHC RDW Plt Count MPV Neut % (Auto) Lymph % (Auto) [place] % (Auto) Eos % (Auto) Baso % (Auto) Neut # (Auto) Lymph # (Auto) [place] # (Auto) Eos # (Auto) Baso # (Auto) WBC Differential Differential Comment Puncture Site Left radial Patient Temperature 98.6 O2 Saturation 95 ABG pH 7.39 ABG pCO2 43 H ABG pO2 99 ABG HCO3 26 ABG O2 Content 16.8 ABG Base Excess 1.4 ABG Methemoglobin 0.6 [place] Test Y Hemoglobin 12.4 Carboxyhemoglobin 1.8 O2 Delivery Device Room air Inspired O2 21 Critical Value No Sodium Potassium Chloride Carbon Dioxide Anion Gap BUN Creatinine Estimated GFR POC Glucose 548 H* Random Glucose Calcium Total Bilirubin AST ALT Alkaline Phosphatase Total Creatine Kinase Total Protein Albumin Beta-Hydroxybutyric Acd Urine Opiates Screen Neg Ur Barbiturates Screen Neg Ur Amphetamines Screen Neg U Benzodiazepines Scrn Neg Urine Cocaine Screen Pos H U Cannabinoids Screen Neg 03/04/18 14:14 WBC RBC Hgb Hct MCV MCH MCHC RDW Plt Count MPV Neut % (Auto) Lymph % (Auto) [place] % (Auto) Eos % (Auto) Baso % (Auto) Neut # (Auto) Lymph # (Auto) [place] # (Auto) Eos # (Auto) Baso # (Auto) WBC Differential Differential Comment Puncture Site Patient Temperature O2 Saturation ABG pH ABG pCO2 ABG pO2 ABG HCO3 ABG O2 Content ABG Base Excess ABG Methemoglobin [place] Test Hemoglobin Carboxyhemoglobin O2 Delivery Device Inspired O2 Critical Value Sodium Potassium Chloride Carbon Dioxide Anion Gap BUN Creatinine Estimated GFR POC Glucose 162 H Random Glucose Calcium Total Bilirubin AST ALT Alkaline Phosphatase Total Creatine Kinase Total Protein Albumin Beta-Hydroxybutyric Acd Urine Opiates Screen Ur Barbiturates Screen Ur Amphetamines Screen U Benzodiazepines Scrn Urine Cocaine Screen U Cannabinoids Screen Caprini VTE Risk Assessment Caprini VTE Risk Assessment: Moderate/High Risk (score >= 2) Caprini Risk Assessment Model: Point Value = 1 Point Value = 2 Point Value = 3 Point Value = 5 Age 41-60 Minor surgery BMI > 25 kg/m2 Swollen legs Varicose veins or History of unexplained or recurrent spontaneous Oral contraceptives or hormone replacement Sepsis (< 1 month) Serious lung disease, including pneumonia (< 1 month) Abnormal pulmonary function Acute myocardial infarction Congestive heart failure (< 1 month) History of inflammatory bowel disease Medical patient at bed rest Age 61-74 Arthroscopic surgery Major open surgery (> 45 min) Laparoscopic surgery (> 45 min) Malignancy Confined to bed (> 72 hours) Immobilizing plaster cast Central venous access Age >= 75 History of VTE Family history of VTE Factor V Leiden Prothrombin [id number] Lupus anticoagulant Anticardiolipin antibodies Elevated serum homocysteine Heparin-induced thrombocytopenia Other congenital or acquired thrombophilia Stroke (< 1 month) Elective arthroplasty Hip, pelvis, or leg fracture Acute spinal cord injury (< 1 month) Prophylaxis Regimen: Total Risk Factor Score Risk Level Prophylaxis Regimen 0-1 Low Early ambulation 2 Moderate Order ONE of the following: *Sequential Compression Device (SCD) *Heparin 5000 units SQ BID 3-4 Higher Order ONE of the following medications: *Heparin 5000 units SQ TID *Enoxaparin/Lovenox 40 mg SQ daily (WT < 150 kg, CrCl > 30 mL/min) *Enoxaparin/Lovenox 30 mg SQ daily (WT < 150 kg, CrCl > 10-29 mL/min) *Enoxaparin/Lovenox 30 mg SQ BID (WT < 150 kg, CrCl > 30 mL/min) AND/OR *Sequential Compression Device (SCD) 5 or more Highest Order ONE of the following medications: *Heparin 5000 units SQ TID (Preferred with Epidurals) *Enoxaparin/Lovenox 40 mg SQ daily (WT < 150 kg, CrCl > 30 mL/min) *Enoxaparin/Lovenox 30 mg SQ daily (WT < 150 kg, CrCl > 10-29 mL/min) *Enoxaparin/Lovenox 30 mg SQ BID (WT < 150 kg, CrCl > 30 mL/min) AND *Sequential Compression Device (SCD) Assessment and Plan - Plan 52-year-old black male being admitted for acute kidney injury Acute kidney injury Likely secondary to uncontrolled diabetes causing dehydration Continue IV fluids, control underlying diabetes Left forearm wound Previous is being treated for an abscess with antibiotics, had undergone bedside debridement on 02/21 previously, cultures had grown out Klebsiella and enterococcus Obtain ultrasound to look for any residual fluid collections Uncontrolled diabetes with hyperglycemia No increased anion gap acidosis Accu-Cheks and sliding scale Coronary artery disease Continue home aspirin Start Lipitor chronic Hep C - symptomatic management gen weakness -multifactorial, treat underlying issues, PT OT eval, bath Addendum: US showing fluid collection - consulting hand surg and starting abx
--- NOTE | 2018-03-04 16:06 | US ---
EXAM DATE: 03/04/2018 3:17 PM EST AGE/SEX: 52 years / Male INDICATIONS: Left arm edema. CLINICAL DATA: This is the patient's initial encounter. Patient reports that signs and symptoms have been present for 1 day and indicates a pain score of 0/10. MEDICAL/SURGICAL HISTORY: Diabetes. CAD. Cardiomyopathy. Chronic kidney disease. Myocardial inf arction. . Hernia repair. Cardiac cath with stent. COMPARISON: [facility] [place], CT FOREARM LEFT W CONTRAST, 02/20/2018. . FINDINGS: Grayscale and Doppler ultrasound imaging was performed of the left anterior mid forearm. In this loca tion there is diffuse hyperemia with a hypoechoic subcutaneous collection measuring 4.4 x 0.9 x 2.0 c m. This corresponds to the area of the low density on recent CT. CONCLUSION: Hyperemia of the anterior mid left forearm suggesting inflammation. There is a subcutaneous collectio n measuring 4.4 x 0.9 x 2.0 cm likely representing a complex fluid collection. Suggest correlating wi th the clinical history to determine etiology but infection or hematoma are the most common possible etiologies. Electronically signed by: Marcos Rebolledo MD 03/04/2018 4:05 PM EST
[2018-03-04] MEDS: Insulin NovoLOG Aspart Correctional Sugar Inj SQ SCH ×2 (17:57→22:09)
[2018-03-04] MEDS: Insulin Detemir Inj 1,000 UNIT/10 ML Vial SQ SCH (20:42)
--- NOTE | 2018-03-04 22:18 | P.PNOP ---
Physical Exam Vital signs: Vital Signs 03/04/18 09:57 03/04/18 10:33 03/04/18 11:00 Temperature 97.9 F Pulse Rate 70 72 68 Respiratory Rate 17 19 14 Blood Pressure 156/110 H 145/99 H 141/97 H Pulse Oximetry 100 98 98 03/04/18 12:00 03/04/18 13:00 03/04/18 14:00 Temperature Pulse Rate 78 66 73 Respiratory Rate 12 17 16 Blood Pressure 157/106 H 141/97 H 125/84 Pulse Oximetry 97 97 98 03/04/18 16:00 03/04/18 19:34 Temperature 98.7 F Pulse Rate 70 89 Respiratory Rate 18 16 Blood Pressure 142/99 H 130/94 H Pulse Oximetry 99 99 Intake & Output 03/04/18 03/04/18 03/05/18 06:59 18:59 06:59 Intake Total 5000 / 5000 2000 / 2000 Output Total 300 / 300 Balance 4700 / 4700 2000 / 2000 Weight 47.627 kg Intake: IV 5000 / 5000 2000 / 2000 NS Inj 1,000 ML @ 250 mls/hr IV 1000 / 1000 2000 / 2000 .CONT .Q4H [facility] Rx#:[id number] NS Inj 1,000 ML @ 1000 mls/hr 4000 / 4000 IV.SIG .Q1H [facility] Rx#:[id number] Output: Urine 300 / 300 Other: # Voids 1 Date of Last Bowel Movement 03/03/18 Weight On Admission 57.153 kg Results - Labs CBC & Chem 7: 03/04/18 10:30 03/04/18 10:30 Laboratory Results - last 24 hr 03/04/18 03/04/18 03/04/18 10:09 10:30 10:30 WBC 5.3 RBC 4.80 Hgb 13.5 Hct 42.0 MCV 87.5 MCH 28.1 MCHC 32.1 RDW 13.9 Plt Count 247 D MPV 9.5 Neut % (Auto) 72.6 H Lymph % (Auto) 19.1 [place] % (Auto) 6.9 Eos % (Auto) 0.9 Baso % (Auto) 0.5 Neut # (Auto) 3.8 Lymph # (Auto) 1.0 [place] # (Auto) 0.4 Eos # (Auto) 0.0 Baso # (Auto) 0.0 WBC Differential . Differential Comment Auto diff final Puncture Site Patient Temperature O2 Saturation ABG pH ABG pCO2 ABG pO2 ABG HCO3 ABG O2 Content ABG Base Excess ABG Methemoglobin [place] Test Hemoglobin Carboxyhemoglobin O2 Delivery Device Inspired O2 Critical Value Sodium 130 L Potassium 4.9 Chloride 94 L Carbon Dioxide 25.3 Anion Gap 11 BUN 29 H Creatinine 1.42 H Estimated GFR 63 L POC Glucose Greater than 600 H* Random Glucose 651 H* Calcium 9.1 Total Bilirubin 0.4 AST 63 H ALT 142 H Alkaline Phosphatase 100 Total Creatine Kinase 161 Total Protein 8.0 Albumin 3.8 Beta-Hydroxybutyric Acd 1.69 H Urine Opiates Screen Ur Barbiturates Screen Ur Amphetamines Screen U Benzodiazepines Scrn Urine Cocaine Screen U Cannabinoids Screen 03/04/18 03/04/18 03/04/18 10:30 10:30 11:29 WBC RBC Hgb Hct MCV MCH MCHC RDW Plt Count MPV Neut % (Auto) Lymph % (Auto) [place] % (Auto) Eos % (Auto) Baso % (Auto) Neut # (Auto) Lymph # (Auto) [place] # (Auto) Eos # (Auto) Baso # (Auto) WBC Differential Differential Comment Puncture Site Patient Temperature O2 Saturation ABG pH ABG pCO2 ABG pO2 ABG HCO3 ABG O2 Content ABG Base Excess ABG Methemoglobin [place] Test Hemoglobin Carboxyhemoglobin O2 Delivery Device Inspired O2 Critical Value Sodium Potassium Chloride Carbon Dioxide Anion Gap BUN Creatinine Estimated GFR POC Glucose Greater than 600 H* Random Glucose Calcium Total Bilirubin AST ALT Alkaline Phosphatase Total Creatine Kinase Cancelled Total Protein Albumin Beta-Hydroxybutyric Acd Cancelled Urine Opiates Screen Ur Barbiturates Screen Ur Amphetamines Screen U Benzodiazepines Scrn Urine Cocaine Screen U Cannabinoids Screen 03/04/18 03/04/18 03/04/18 12:03 12:44 12:46 WBC RBC Hgb Hct MCV MCH MCHC RDW Plt Count MPV Neut % (Auto) Lymph % (Auto) [place] % (Auto) Eos % (Auto) Baso % (Auto) Neut # (Auto) Lymph # (Auto) [place] # (Auto) Eos # (Auto) Baso # (Auto) WBC Differential Differential Comment Puncture Site Left radial Patient Temperature 98.6 O2 Saturation 95 ABG pH 7.39 ABG pCO2 43 H ABG pO2 99 ABG HCO3 26 ABG O2 Content 16.8 ABG Base Excess 1.4 ABG Methemoglobin 0.6 [place] Test Y Hemoglobin 12.4 Carboxyhemoglobin 1.8 O2 Delivery Device Room air Inspired O2 21 Critical Value No Sodium Potassium Chloride Carbon Dioxide Anion Gap BUN Creatinine Estimated GFR POC Glucose 548 H* Random Glucose Calcium Total Bilirubin AST ALT Alkaline Phosphatase Total Creatine Kinase Total Protein Albumin Beta-Hydroxybutyric Acd Urine Opiates Screen Neg Ur Barbiturates Screen Neg Ur Amphetamines Screen Neg U Benzodiazepines Scrn Neg Urine Cocaine Screen Pos H U Cannabinoids Screen Neg 03/04/18 03/04/18 03/04/18 14:14 16:55 18:45 WBC RBC Hgb Hct MCV MCH MCHC RDW Plt Count MPV Neut % (Auto) Lymph % (Auto) [place] % (Auto) Eos % (Auto) Baso % (Auto) Neut # (Auto) Lymph # (Auto) [place] # (Auto) Eos # (Auto) Baso # (Auto) WBC Differential Differential Comment Puncture Site Patient Temperature O2 Saturation ABG pH ABG pCO2 ABG pO2 ABG HCO3 ABG O2 Content ABG Base Excess ABG Methemoglobin [place] Test Hemoglobin Carboxyhemoglobin O2 Delivery Device Inspired O2 Critical Value Sodium Potassium Chloride Carbon Dioxide Anion Gap BUN Creatinine Estimated GFR POC Glucose 162 H 401 H 390 H Random Glucose Calcium Total Bilirubin AST ALT Alkaline Phosphatase Total Creatine Kinase Total Protein Albumin Beta-Hydroxybutyric Acd Urine Opiates Screen Ur Barbiturates Screen Ur Amphetamines Screen U Benzodiazepines Scrn Urine Cocaine Screen U Cannabinoids Screen 03/04/18 21:28 WBC RBC Hgb Hct MCV MCH MCHC RDW Plt Count MPV Neut % (Auto) Lymph % (Auto) [place] % (Auto) Eos % (Auto) Baso % (Auto) Neut # (Auto) Lymph # (Auto) [place] # (Auto) Eos # (Auto) Baso # (Auto) WBC Differential Differential Comment Puncture Site Patient Temperature O2 Saturation ABG pH ABG pCO2 ABG pO2 ABG HCO3 ABG O2 Content ABG Base Excess ABG Methemoglobin [place] Test Hemoglobin Carboxyhemoglobin O2 Delivery Device Inspired O2 Critical Value Sodium Potassium Chloride Carbon Dioxide Anion Gap BUN Creatinine Estimated GFR POC Glucose 301 H Random Glucose Calcium Total Bilirubin AST ALT Alkaline Phosphatase Total Creatine Kinase Total Protein Albumin Beta-Hydroxybutyric Acd Urine Opiates Screen Ur Barbiturates Screen Ur Amphetamines Screen U Benzodiazepines Scrn Urine Cocaine Screen U Cannabinoids Screen - Imaging Impressions Upper Extremity Ultrasound 03/04/18 00:00 CONCLUSION: Hyperemia of the anterior mid left forearm suggesting inflammation. There is a subcutaneous collection measuring 4.4 x 0.9 x 2.0 cm likely representing a complex fluid collection. Suggest correlating with the clinical history to determine etiology but infection or hematoma are the most common possible etiologies. Assessment and Plan - Assessment and Plan Patient has been treated by Dr Baldwin 02/21/[address] Dr Baldwin for consult and followup.
[2018-03-05] MEDS: Sod Chloride 0.9% Inj 1,000 ML IV.CONT SCH ×7 (03:34→23:57)
[2018-03-05 08:09] LABS: Anion Gap 8 meq/L (5-15); Blood Urea Nitrogen 13 mg/dL (7-18); Calcium 7.4 mg/dL (8.5-10.1); Carbon Dioxide 21.9 meq/L (21.0-32.0); Chloride 105 meq/L (98-107); Glomerular Filtration Rate Greater Than 89 mL/min (>89); Glucose,Random 163 mg/dL (74-106); Potassium 3.7 meq/L (3.5-5.1); Sodium 135 meq/L (136-145)
[2018-03-05 08:20] LABS: Albumin 2.8 g/dL (3.4-5.0); Calcium-Albumin Corrected 8.4 mg/dL (8.5-10.1)
[2018-03-05] MEDS: Aztreonam Inj 2 GM in Sodium Chloride 0.9% Inj 100 ML IV.SIG SCH ×2 (10:30→22:08)
[2018-03-05] MEDS: Insulin NovoLOG Aspart Correctional Sugar Inj SQ SCH ×4 (10:30→21:42)
--- NOTE | 2018-03-05 10:47 | P.PN ---
Subjective Interval history: Nursing denies any acute changes overnight. Patient says says he feels like he has more energy today. Says that his left arm feels just a little better. Says that he is open to insulin therapy as an outpatient if warranted, says he is not sure if he is a type I or type II diabetic. Physical Exam Vital signs: Vital Signs 03/04/18 11:00 03/04/18 12:00 03/04/18 13:00 Temperature Pulse Rate 68 78 66 Respiratory Rate 14 12 17 Blood Pressure 141/97 H 157/106 H 141/97 H Pulse Oximetry 98 97 97 03/04/18 14:00 03/04/18 16:00 03/04/18 19:34 Temperature 98.7 F Pulse Rate 73 70 89 Respiratory Rate 16 18 16 Blood Pressure 125/84 142/99 H 130/94 H Pulse Oximetry 98 99 99 03/04/18 23:55 03/05/18 04:00 03/05/18 07:28 Temperature 98.2 F 97.8 F 97.5 F L Pulse Rate 74 65 64 Respiratory Rate 16 16 18 Blood Pressure 131/89 134/94 H 160/109 H Pulse Oximetry 100 100 99 Intake & Output 03/04/18 03/05/18 03/05/18 18:59 06:59 18:59 Intake Total 5000 / 5000 3000 / 3000 1000 / 1000 Output Total 300 / 300 Balance 4700 / 4700 3000 / 3000 1000 / 1000 Weight 47.627 kg Intake: IV 5000 / 5000 3000 / 3000 1000 / 1000 NS Inj 1,000 ML @ 250 mls/hr IV 1000 / 1000 3000 / 3000 1000 / 1000 .CONT .Q4H [facility] Rx#:[id number] NS Inj 1,000 ML @ 1000 mls/hr 4000 / 4000 IV.SIG .Q1H [facility] Rx#:[id number] Output: Urine 300 / 300 Other: # Voids 1 Date of Last Bowel Movement 03/03/18 Weight On Admission 57.153 kg Narrative: Heart sounds regular rhythm, no murmurs Clear lungs bilaterally, labored breathing 4/5 proximal upper extremity strength including 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 Differential Comment Auto diff final Puncture Site Patient Temperature O2 Saturation ABG pH ABG pCO2 ABG pO2 ABG HCO3 ABG O2 Content ABG Base Excess ABG Methemoglobin [place] Test Hemoglobin Carboxyhemoglobin O2 Delivery Device Inspired O2 Critical Value Sodium 130 L Potassium 4.9 Chloride 94 L Carbon Dioxide 25.3 Anion Gap 11 BUN 29 H Creatinine 1.42 H Estimated GFR 63 L POC Glucose Random Glucose 651 H* Calcium 9.1 Calcium Adj for Albumin Total Bilirubin 0.4 AST 63 H ALT 142 H Alkaline Phosphatase 100 Total Creatine Kinase 161 Total Protein 8.0 Albumin 3.8 Beta-Hydroxybutyric Acd 1.69 H Cancelled Urine Opiates Screen Ur Barbiturates Screen Ur Amphetamines Screen U Benzodiazepines Scrn Urine Cocaine Screen U Cannabinoids Screen 03/04/18 03/04/18 03/04/18 10:30 11:29 12:03 WBC RBC Hgb Hct MCV MCH MCHC RDW Plt Count MPV Neut % (Auto) Lymph % (Auto) [place] % (Auto) Eos % (Auto) Baso % (Auto) Neut # (Auto) Lymph # (Auto) [place] # (Auto) Eos # (Auto) Baso # (Auto) WBC Differential Differential Comment Puncture Site Left radial Patient Temperature 98.6 O2 Saturation 95 ABG pH 7.39 ABG pCO2 43 H ABG pO2 99 ABG HCO3 26 ABG O2 Content 16.8 ABG Base Excess 1.4 ABG Methemoglobin 0.6 [place] Test Y Hemoglobin 12.4 Carboxyhemoglobin 1.8 O2 Delivery Device Room air Inspired O2 21 Critical Value No Sodium Potassium Chloride Carbon Dioxide Anion Gap BUN Creatinine Estimated GFR POC Glucose Greater than 600 H* Random Glucose Calcium Calcium Adj for Albumin Total Bilirubin AST ALT Alkaline Phosphatase Total Creatine Kinase Cancelled Total Protein Albumin Beta-Hydroxybutyric Acd Urine Opiates Screen Ur Barbiturates Screen Ur Amphetamines Screen U Benzodiazepines Scrn Urine Cocaine Screen U Cannabinoids Screen 03/04/18 03/04/18 03/04/18 12:44 12:46 14:14 WBC RBC Hgb Hct MCV MCH MCHC RDW Plt Count MPV Neut % (Auto) Lymph % (Auto) [place] % (Auto) Eos % (Auto) Baso % (Auto) Neut # (Auto) Lymph # (Auto) [place] # (Auto) Eos # (Auto) Baso # (Auto) WBC Differential Differential Comment Puncture Site Patient Temperature O2 Saturation ABG pH ABG pCO2 ABG pO2 ABG HCO3 ABG O2 Content ABG Base Excess ABG Methemoglobin [place] Test Hemoglobin Carboxyhemoglobin O2 Delivery Device Inspired O2 Critical Value Sodium Potassium Chloride Carbon Dioxide Anion Gap BUN Creatinine Estimated GFR POC Glucose 548 H* 162 H Random Glucose Calcium Calcium Adj for Albumin Total Bilirubin AST ALT Alkaline Phosphatase Total Creatine Kinase Total Protein Albumin Beta-Hydroxybutyric Acd Urine Opiates Screen Neg Ur Barbiturates Screen Neg Ur Amphetamines Screen Neg U Benzodiazepines Scrn Neg Urine Cocaine Screen Pos H U Cannabinoids Screen Neg 03/04/18 03/04/18 03/04/18 16:55 18:45 21:28 WBC RBC Hgb Hct MCV MCH MCHC RDW Plt Count MPV Neut % (Auto) Lymph % (Auto) [place] % (Auto) Eos % (Auto) Baso % (Auto) Neut # (Auto) Lymph # (Auto) [place] # (Auto) Eos # (Auto) Baso # (Auto) WBC Differential Differential Comment Puncture Site Patient Temperature O2 Saturation ABG pH ABG pCO2 ABG pO2 ABG HCO3 ABG O2 Content ABG Base Excess ABG Methemoglobin [place] Test Hemoglobin Carboxyhemoglobin O2 Delivery Device Inspired O2 Critical Value Sodium Potassium Chloride Carbon Dioxide Anion Gap BUN Creatinine Estimated GFR POC Glucose 401 H 390 H 301 H Random Glucose Calcium Calcium Adj for Albumin Total Bilirubin AST ALT Alkaline Phosphatase Total Creatine Kinase Total Protein Albumin Beta-Hydroxybutyric Acd Urine Opiates Screen Ur Barbiturates Screen Ur Amphetamines Screen U Benzodiazepines Scrn Urine Cocaine Screen U Cannabinoids Screen 03/05/18 03/05/18 05:45 09:13 WBC RBC Hgb Hct MCV MCH MCHC RDW Plt Count MPV Neut % (Auto) Lymph % (Auto) [place] % (Auto) Eos % (Auto) Baso % (Auto) Neut # (Auto) Lymph # (Auto) [place] # (Auto) Eos # (Auto) Baso # (Auto) WBC Differential Differential Comment Puncture Site Patient Temperature O2 Saturation ABG pH ABG pCO2 ABG pO2 ABG HCO3 ABG O2 Content ABG Base Excess ABG Methemoglobin [place] Test Hemoglobin Carboxyhemoglobin O2 Delivery Device Inspired O2 Critical Value Sodium 135 L Potassium 3.7 D Chloride 105 D Carbon Dioxide 21.9 Anion Gap 8 BUN 13 Creatinine 0.74 Estimated GFR Greater than 89 POC Glucose 266 H Random Glucose 163 H D Calcium 7.4 L* D Calcium Adj for Albumin 8.4 L Total Bilirubin AST ALT Alkaline Phosphatase Total Creatine Kinase Total Protein Albumin 2.8 L D Beta-Hydroxybutyric Acd Urine Opiates Screen Ur Barbiturates Screen Ur Amphetamines Screen U Benzodiazepines Scrn Urine Cocaine Screen U Cannabinoids Screen - Imaging Impressions Upper Extremity Ultrasound 03/04/18 00:00 CONCLUSION: Hyperemia of the anterior mid left forearm suggesting inflammation. There is a subcutaneous collection measuring 4.4 x 0.9 x 2.0 cm likely representing a complex fluid collection. Suggest correlating with the clinical history to determine etiology but infection or hematoma are the most common possible etiologies. Assessment and Plan - Plan 52-year-old black male being admitted for acute kidney injury Acute kidney injury resolved w/ IVFs. Left forearm wound Previous is being treated for an abscess with antibiotics, had undergone bedside debridement on 02/21 previously, cultures had grown out Klebsiella and enterococcus Fluid collection in left forearm, possible hematoma versus abscess, and surgery consultation pending, aztreonam for now given most recent culture results from January Uncontrolled diabetes with hyperglycemia No increased anion gap acidosis Accu-Cheks and sliding scale -levemir qhs Coronary artery disease Continue home aspirin Lipitor chronic Hep C - symptomatic management gen weakness -multifactorial, treat underlying issues, PT OT eval, bath
--- NOTE | 2018-03-05 20:33 | P.CONOP ---
[facility] Orthopedics Consult Note - [facility] Consult date: 03/05/18 Requesting physician: Hilton Reyes Chief complaint: Left forearm ulcer Narrative: 52-year-old gentleman with history of hepatitis C, coronary artery disease, diabetes. Returns to ER after recently having left AMA. I was consulted on the patient during his last admission regarding a left forearm ulceration with underlying abscess. Mister Kahn returns to the ER today noting his wound appearance has been improving. Evaluation was significant for fluctuance about the volar forearm, proximal to the ulceration. Ultrasound was performed, Which demonstrated a small fluid collection. Hand surgery consultation was requested. He rates his pain a 2/10 in severity. Denies paresthesias of the hand. Review of Systems Constitutional: Denies chills, Denies fever(s) Ears, Nose, Mouth, and Throat: Denies abnormal hearing Cardiovascular: Denies chest pain Respiratory: Denies cough Gastrointestinal: Denies abdominal pain Musculoskeletal: Denies joint swelling, Denies stiffness, Denies tingling Neurologic: Denies tingling/numbness/burning sensations Psychiatric: Denies anxiety, Denies depression PMFSH - History History Provided By: Patient - Medical History Medical History: Medical History (Last Reviewed 03/05/18 @ 08:29 by Maki Smith) CAD (coronary artery disease) (Acute) Chronic kidney disease (Acute) Cardiomyopathy (Acute) Heart attack (Acute) Abdominal hernia (Acute) Diabetes (Acute) - Surgical History Surgical History: Surgical History (Last Reviewed 03/05/18 @ 08:29 by Maki Smith) Stented coronary artery (Acute) Hx of hernia repair - Family History Family History: Family History (Last Reviewed 03/04/18 @ 15:00 by Hilton Reyes MD) Mother Family history of diabetes mellitus - Tobacco History Second Hand Smoke Exposure: Yes Tobacco Use In Past 30 Days: No Smoking Status: Former smoker Tobacco Type: Cigarettes - Alcohol History How Often Do You Have a Drink Containing Alcohol: Never - Substance Use History Substance History: Active Abuse - Substance Use Type Crack/Cocaine Status: Active Route Used: Inhalation Frequency: a hit every now or than Last Used: 03/02 Reason for Use: Feels Good Comment: patient states it takes the pain away - Travel History Recent Travel in the [facility] Within the Last 8 Weeks: No Recent Travel Out of the Country Within the Last 8 Weeks: No - Immunization History Tetanus Immunization: >5 Years Medications and Allergies Active Medications: Active Medications Dextrose (D50w Vial) 50 ml IV.PUSH UNSCH PRN PRN Reason: PER HYPOGLYCEMIA PROTOCOL Glucagon (Glucagon Inj) 1 mg OTHER PRN PRN PRN Reason: for Hypoglycemia Protocol Sodium Chloride (Ns Inj) 1,000 mls @ 250 mls/hr IV.CONT .Q4H [facility] Last Admin: 03/05/18 19:02 Dose: Not Given Aztreonam 2 gm/ Sodium (Chloride) 100 mls @ 200 mls/hr IV.SIG Q12H [facility] Last Infusion: 03/05/18 11:02 Dose: Infused Insulin Aspart (Novolog Insulin Correctional Sugar Inj) 0 unit SQ ACHS [facility]; Protocol Last Admin: 03/05/18 18:40 Dose: 13 unit Insulin Detemir (Levemir Inj) 3 unit SQ HS [facility] Last Admin: 03/04/18 20:42 Dose: 3 unit Sodium Chloride (Ns Flush) 2 ml IV.FLUSH BID [facility] Last Admin: 03/05/18 08:52 Dose: Not Given Sodium Chloride (Ns Flush) 2 ml IV.FLUSH PRN PRN PRN Reason: FLUSH AFTER USING IV ACCESS Allergies Allergy/AdvReac Type Severity Reaction Status Date / Time No Known Allergies Allergy Verified 02/23/18 10:54 Home Medications Medication Instructions Recorded Confirmed Type aspirin 81 mg PO DAILY 03/04/18 03/04/18 History carvedilol 3.125 mg PO BID 03/04/18 03/04/18 History clopidogrel 75 mg PO DAILY 03/04/18 03/04/18 History metformin 500 mg PO BID 03/04/18 03/04/18 History Exam Vital signs: Vital Signs 03/04/18 23:55 03/05/18 04:00 03/05/18 07:28 Temperature 98.2 F 97.8 F 97.5 F L Pulse Rate 74 65 64 Respiratory Rate 16 16 18 Blood Pressure 131/89 134/94 H 160/109 H Pulse Oximetry 100 100 99 03/05/18 12:00 03/05/18 15:40 03/05/18 19:30 Temperature 97.6 F 98.6 F 98.8 F Pulse Rate 67 90 85 Respiratory Rate 18 20 18 Blood Pressure 149/112 H 124/77 146/95 H Pulse Oximetry 99 99 100 Intake & Output 03/05/18 03/05/18 03/06/18 06:59 18:59 06:59 Intake Total 3000 / 3000 2200 / 2200 Balance 3000 / 3000 2200 / 2200 Intake: IV 3000 / 3000 2200 / 2200 NS Inj 1,000 ML @ 250 mls/hr IV 3000 / 3000 2100 / 2100 .CONT .Q4H [facility] Rx#:[id number] Azactam Inj 2 GM In NS Inj 100 100 / 100 ML @ 200 mls/hr IV.SIG Q12H [facility] Rx#:[id number] Other: Date of Last Bowel Movement 03/03/18 - Constitutional no acute distress - Routine HEENT Exam Head: Present: normocephalic, atraumatic - Routine Respiratory Exam Absent: accessory muscle use - Routine Cardiovascular Exam Present: RRR - Routine Abdominal Exam Present: soft. Absent: distended - Routine Extremities Exam Comments: Focused evaluation of the left upper extremity demonstrates a full-thickness skin ulceration with a bed of granulation tissue, approximately 2 cm in diameter. Compared to previous examination, the ulceration is more shallow with interval granulation tissue. There is a small focus of subcutaneous fluctuance proximal to the ulceration. This was expressed through the wound which expressed combination of hematoma and necrotic, purulent material. He has full hand range of motion. Sensation is intact to the median, radial, ulnar nerve distribution. Painless range of motion of the wrist and elbow. - Routine Neurological Exam Present: oriented X3 Results - Labs Result Diagrams: 03/04/18 10:30 03/05/18 05:45 Labs: Laboratory Results - last 24 hr 03/04/18 03/05/18 03/05/18 21:28 05:45 09:13 Sodium 135 L Potassium 3.7 D Chloride 105 D Carbon Dioxide 21.9 Anion Gap 8 BUN 13 Creatinine 0.74 Estimated GFR Greater than 89 POC Glucose 301 H 266 H Random Glucose 163 H D Calcium 7.4 L* D Calcium Adj for Albumin 8.4 L Albumin 2.8 L D 03/05/18 03/05/18 03/05/18 13:13 18:27 19:40 Sodium Potassium Chloride Carbon Dioxide Anion Gap BUN Creatinine Estimated GFR POC Glucose 231 H Greater than 600 H* Greater than 600 H* Random Glucose Calcium Calcium Adj for Albumin Albumin Assessment and Plan - Assessment and Plan 52-year-old gentleman with full-thickness volar forearm Ulceration and underlying abscess. Was previously admitted and being treated for forearm abscess with IV antibiotics. Wound cultures were significant for Klebsiella and enterococcus. Left AMA. Now he presents to the ER. Ultrasound consistent with a small subcutaneous fluid collection. This was expressed at bedside with evidence of hematoma and necrotic debris/purulence. A complete decompression was performed at bedside. There is no evidence of cellulitis. His ulceration has evidence of interval granulation tissue with healing. Recommend IV antibiotic therapy with transition to oral antibiotics for treatment of Subcutaneous forearm abscess Weightbearing as tolerated to left upper extremity Wet-to-dry dressings to perform ulceration. Anticipate healing via secondary intention Hand surgery to continue to follow patient's progress. Do not anticipate further surgical intervention.
[2018-03-05] MEDS: Insulin Detemir Inj 1,000 UNIT/10 ML Vial SQ SCH (21:40)
[2018-03-06] MEDS: Sod Chloride 0.9% Inj 1,000 ML IV.CONT SCH ×6 (04:35→22:20)
--- NOTE | 2018-03-06 07:58 | P.PNOP ---
Subjective Interval history: No acute overnight events. Patient denies current complaints. Denies current pain. Physical Exam Vital signs: Vital Signs 03/05/18 12:00 03/05/18 15:40 03/05/18 19:30 Temperature 97.6 F 98.6 F 98.8 F Pulse Rate 67 90 85 Respiratory Rate 18 20 18 Blood Pressure 149/112 H 124/77 146/95 H Pulse Oximetry 99 99 100 03/05/18 23:01 03/06/18 04:00 03/06/18 07:28 Temperature 98.0 F 97.6 F 98.6 F Pulse Rate 65 61 70 Respiratory Rate 18 18 20 Blood Pressure 135/90 130/90 137/90 Pulse Oximetry 100 100 99 Intake & Output 03/05/18 03/06/18 03/06/18 18:59 06:59 18:59 Intake Total 2200 / 2200 2000 / 2000 Output Total 2500 / 2500 Balance 2200 / 2200 -500 / -500 Intake: IV 2200 / 2200 2000 / 2000 NS Inj 1,000 ML @ 250 mls/hr IV 2100 / 2100 1900 / 1900 .CONT .Q4H [facility] Rx#:[id number] Azactam Inj 2 GM In NS Inj 100 100 / 100 100 / 100 ML @ 200 mls/hr IV.SIG Q12H [facility] Rx#:[id number] Output: Urine 2500 / 2500 Other: Date of Last Bowel Movement 03/05/18 - Constitutional no acute distress - Routine Extremities Exam Comments: Focused evaluation of the left upper extremity demonstrates no evidence of residual fluctuance to the volar forearm. Ulceration with base of granulation tissue, approximately 2 cm in diameter. No cellulitis. Painless range of motion of the elbow and wrist. Sensation is intact throughout the hand. Results - Labs CBC & Chem 7: 03/04/18 10:30 03/05/18 19:43 Laboratory Results - last 24 hr 03/05/18 03/05/18 03/05/18 05:45 09:13 13:13 Sodium 135 L Potassium 3.7 D Chloride 105 D Carbon Dioxide 21.9 Anion Gap 8 BUN 13 Creatinine 0.74 Estimated GFR Greater than 89 POC Glucose 266 H 231 H Random Glucose 163 H D Calcium 7.4 L* D Calcium Adj for Albumin 8.4 L Albumin 2.8 L D 03/05/18 03/05/18 03/05/18 18:27 19:40 19:43 Sodium Potassium Chloride Carbon Dioxide Anion Gap BUN Creatinine Estimated GFR POC Glucose Greater than 600 H* Greater than 600 H* Random Glucose 727 H* D Calcium Calcium Adj for Albumin Albumin 03/06/18 03/06/18 00:07 03:40 Sodium Potassium Chloride Carbon Dioxide Anion Gap BUN Creatinine Estimated GFR POC Glucose 499 H* 309 H Random Glucose Calcium Calcium Adj for Albumin Albumin Assessment and Plan - Assessment and Plan 52-year-old gentleman with full-thickness volar forearm Ulceration and underlying abscess. Was previously admitted and being treated for forearm abscess with IV antibiotics. Wound cultures were significant for Klebsiella and enterococcus. Left AMA. Now he presents to the ER. Ultrasound consistent with a small subcutaneous fluid collection. This was expressed at bedside with evidence of hematoma and necrotic debris/purulence. A complete decompression was performed at bedside. There is no evidence of cellulitis. His ulceration has evidence of interval granulation tissue with healing. Continue IV antibiotic therapy. Transition to oral antibiotics on hospital day 2/3 Weightbearing as tolerated to left upper extremity Wet-to-dry dressings to perform ulceration. Anticipate healing via secondary intention Do not anticipate need for surgical intervention.
[2018-03-06] MEDS: Aztreonam Inj 2 GM in Sodium Chloride 0.9% Inj 100 ML IV.SIG SCH ×2 (09:23→21:27)
--- NOTE | 2018-03-06 10:44 | P.PN ---
Subjective Interval history: Nursing denies any acute changes overnight. Patient himself has no new complaints. Blood sugars climbed to the 700s yesterday evening, came down to 300s by this morning. Physical Exam Vital signs: Vital Signs 03/05/18 12:00 03/05/18 15:40 03/05/18 19:30 Temperature 97.6 F 98.6 F 98.8 F Pulse Rate 67 90 85 Respiratory Rate 18 20 18 Blood Pressure 149/112 H 124/77 146/95 H Pulse Oximetry 99 99 100 03/05/18 23:01 03/06/18 04:00 03/06/18 07:28 Temperature 98.0 F 97.6 F 98.6 F Pulse Rate 65 61 70 Respiratory Rate 18 18 20 Blood Pressure 135/90 130/90 137/90 Pulse Oximetry 100 100 99 Intake & Output 03/05/18 03/06/18 03/06/18 18:59 06:59 18:59 Intake Total 2200 / 2200 2000 / 2000 1000 / 1000 Output Total 2500 / 2500 Balance 2200 / 2200 -500 / -500 1000 / 1000 Intake: IV 2200 / 2200 2000 / 2000 1000 / 1000 NS Inj 1,000 ML @ 250 mls/hr IV 2100 / 2100 1900 / 1900 1000 / 1000 .CONT .Q4H [facility] Rx#:[id number] Azactam Inj 2 GM In NS Inj 100 100 / 100 100 / 100 ML @ 200 mls/hr IV.SIG Q12H [facility] Rx#:[id number] Output: Urine 2500 / 2500 Other: Date of Last Bowel Movement 03/05/18 Narrative: Left forearm with minimal improvement in focal areas of edema, unchanged wound in mid forearm overall, no purulent drainage Clear lungs bilaterally, unlabored breathing Heart sounds regular rate and rhythm, no murmurs No lower extremity edema Awake alert, no acute distress Results - Labs CBC & Chem 7: 03/04/18 10:30 03/05/18 19:43 Laboratory Results - last 24 hr 03/05/18 03/05/18 03/05/18 13:13 18:27 19:40 POC Glucose 231 H Greater than 600 H* Greater than 600 H* Random Glucose 03/05/18 03/06/18 03/06/18 19:43 00:07 03:40 POC Glucose 499 H* 309 H Random Glucose 727 H* D 03/06/18 09:17 POC Glucose 375 H Random Glucose Assessment and Plan - Plan 52-year-old black male originally admitted for acute kidney injury with uncontrolled hyperglycemia. Kidney injury resolved, hyperglycemia fluctuated, hand surgery have been consulted for left forearm wound, managed medically. Left forearm wound Previous is being treated for an abscess with antibiotics, had undergone bedside debridement on 02/21 previously, cultures had grown out Klebsiella and enterococcus -Continue IV antibiotics (aztreonam) per hand surgery for another day, anticipate transitioning to orals by tomorrow afternoon Uncontrolled diabetes with hyperglycemia Continue Accu-Cheks and sliding scale Start home metformin, will double the dose of Levemir for now, we will see if diabetes education is available to the patient over the weekend Coronary artery disease Continue home aspirin Lipitor chronic Hep C - symptomatic management gen weakness -multifactorial, treat underlying issues, PT OT eval, bath
[2018-03-06] MEDS: Insulin NovoLOG Aspart Correctional Sugar Inj SQ SCH ×4 (11:15→21:28)
[2018-03-06] MEDS: Insulin Detemir Inj 1,000 UNIT/10 ML Vial SQ SCH ×2 (11:24→21:29)
[2018-03-06] MEDS: Heparin - SQ 10,000 UNITS/ML Vial SQ SCH (21:28)
[2018-03-07] MEDS: Sod Chloride 0.9% Inj 1,000 ML IV.CONT SCH ×3 (01:57→12:23)
--- NOTE | 2018-03-07 08:36 | P.PNOP ---
Subjective Interval history: No acute overnight events. Resting comfortably in bed. Denies current pain. Physical Exam Vital signs: Vital Signs 03/06/18 12:20 03/06/18 16:21 03/06/18 20:00 Temperature 98.7 F 98.3 F 98.9 F Pulse Rate 68 66 88 Respiratory Rate 20 20 18 Blood Pressure 136/91 H 127/77 125/84 Pulse Oximetry 100 99 98 03/07/18 00:00 03/07/18 04:00 03/07/18 08:13 Temperature 97.6 F 96.3 F L 98.2 F Pulse Rate 71 62 54 L Respiratory Rate 17 17 20 Blood Pressure 133/84 151/74 H 123/74 Pulse Oximetry 100 100 99 Intake & Output 03/06/18 03/07/18 03/07/18 18:59 06:59 18:59 Intake Total 2100 / 2100 5640 / 5640 Output Total 3100 / 3100 Balance 2100 / 2100 2540 / 2540 Intake: IV 2100 / 2100 4000 / 4000 NS Inj 1,000 ML @ 250 mls/hr IV 2000 / 2000 4000 / 4000 .CONT .Q4H [facility] Rx#:[id number] Azactam Inj 2 GM In NS Inj 100 100 / 100 ML @ 200 mls/hr IV.SIG Q12H [facility] Rx#:[id number] Oral 1640 / 1640 Output: Urine 3100 / 3100 Other: # Voids 4 Date of Last Bowel Movement 03/06/18 03/06/18 - Constitutional no acute distress - Routine Extremities Exam Comments: Focused evaluation of the left upper extremity demonstrates forearm, superficial ulceration, 2 cm in diameter. A scant amount of necrotic debris was evacuated from the wound at bedside. No focal purulence or underlying abscess. Full hand range of motion. Sensation intact throughout the hand. Results - Labs CBC & Chem 7: 03/04/18 10:30 03/05/18 19:43 Laboratory Results - last 24 hr 03/06/18 03/06/18 03/06/18 09:17 13:19 17:07 POC Glucose 375 H 182 H 202 H 03/06/18 20:32 POC Glucose 342 H Assessment and Plan - Assessment and Plan 52-year-old gentleman with full-thickness volar forearm Ulceration and underlying abscess. Was previously admitted and being treated for forearm abscess with IV antibiotics. Wound cultures were significant for Klebsiella and enterococcus. Left AMA. Now he presents to the ER. Ultrasound consistent with a small subcutaneous fluid collection. This was expressed at bedside with evidence of hematoma and necrotic debris/purulence. A complete decompression was performed at bedside. There is no evidence of cellulitis. His ulceration has evidence of interval granulation tissue with healing. Continue IV antibiotic therapy. Transition to oral antibiotics. Weightbearing as tolerated to left upper extremity Twice daily, wet-to-dry dressings to ulceration. Anticipate healing via secondary intention Do not anticipate need for surgical intervention. Orthopedic hand surgery to sign off at present time. Please contact us should his symptoms acutely change or worsen. Thank you for involving us in the care of this patient.
[2018-03-07] MEDS: Insulin NovoLOG Aspart Correctional Sugar Inj SQ SCH ×2 (09:37→12:29)
[2018-03-07] MEDS: Insulin Detemir Inj 1,000 UNIT/10 ML Vial SQ SCH (09:37)
[2018-03-07] MEDS: Heparin - SQ 10,000 UNITS/ML Vial SQ SCH (09:39)
--- NOTE | 2018-03-07 11:10 | P.DS ---
Date of admission: 03/04/18 12:43 Primary care physician: No Primary Care Physician Brief History from admission: 52-year-old black male being admitted for acute kidney injury. 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 Says he felt that his sugar was high. Denies having any shortness of breath or chest pain. Reports having pain in his left forearm which upon examination has exposed subcutaneous tissue. Chart review indicates that he has been evaluated by hand surgery who recommended medical management for an abscess with wet-to-dry dressings and packing. Patient is overall a poor historian, says he has been taking only 3 pills, metformin, aspirin, and some third pill. He was brought by ambulance. In the emergency department glucoses were in the 600s. Hydroxybutyrate was elevated but no increased anion gap. Creatinine was elevated at 1.42. Patient given IV fluids and 15 units of insulin. DS: Medications - Discharge Medications Prescriptions: blood sugar diagnostic [Truetest Test Strips] #1 box blood-glucose meter #1 each insulin aspart U-100 [Novolog U-100 Insulin aspart] 0 unit SUBCUT ACHS #1 vial insulin detemir U-100 [Levemir U-100 Insulin] 12 unit SUBCUT HS #1 vial insulin syringe-needle U-100 #100 each levofloxacin 750 mg PO DAILY #6 tab DS: Summary Hospital Course: Patient was admitted, started on insulin and IV antibiotics and IV fluids for his uncontrolled hyperglycemia, incompletely treated forearm infection secondary to noncompliance, and acute kidney injury; respectively. Hand surgery followed the patient and agreed with medical management. Patient was ultimately transitioned to oral antibiotics with stabilization of his sugars. Patient is met maximum benefit from hospitalization is clinically stable for discharge. Patient was advised on strict medication compliance and follow-up with PCP outpatient for optimal wound healing with well-controlled sugars. - Time Spent with Patient Total time spent providing and/or coordinating discharge services: Less than 30 minutes - Quality: VTE Deep Vein Thrombosis/Pulmonary Embolism Present on Admission: No Exam Vital signs: Vital Signs 03/06/18 12:20 03/06/18 16:21 03/06/18 20:00 Temperature 98.7 F 98.3 F 98.9 F Pulse Rate 68 66 88 Respiratory Rate 20 20 18 Blood Pressure 136/91 H 127/77 125/84 Pulse Oximetry 100 99 98 03/07/18 00:00 03/07/18 04:00 03/07/18 08:13 Temperature 97.6 F 96.3 F L 98.2 F Pulse Rate 71 62 54 L Respiratory Rate 17 17 20 Blood Pressure 133/84 151/74 H 123/74 Pulse Oximetry 100 100 99 Intake & Output 03/06/18 03/07/18 03/07/18 18:59 06:59 18:59 Intake Total 2099 / 2099 5640 / 5640 Output Total 3100 / 3100 1000 / 1000 Balance 2099 2540 / 2540 -1000 / -1000 Intake: IV 2099 / 2099 4000 / 4000 NS Inj 1,000 ML @ 250 mls/hr IV 2000 / 2000 4000 / 4000 .CONT .Q4H CARMEN Rx#:[id number] Azactam Inj 2 GM In NS Inj 100 100 / 100 ML @ 200 mls/hr IV.SIG Q12H CARMEN Rx#:[id number] Oral 1640 / 1640 Output: Urine 3100 / 3100 1000 / 1000 Other: # Voids 4 Date of Last Bowel Movement 03/06/18 03/06/18 Narrative: Healing mid forearm wound/ulcer with no purulent drainage noted Proximal forearm swelling improved on anterior aspect, no tenzin tenderness to palpation Results Procedures completed during hospitalization: none Labs on day of discharge: Labs from last 24 hours 03/07/18 03/06/18 03/06/18 08:53 20:32 17:07 POC Glucose 313 H 342 H 202 H 03/06/18 13:19 POC Glucose 182 H - Impressions ITS Impressions Upper Extremity Ultrasound 03/04/18 00:00 CONCLUSION: Hyperemia of the anterior mid left forearm suggesting inflammation. There is a subcutaneous collection measuring 4.4 x 0.9 x 2.0 cm likely representing a complex fluid collection. Suggest correlating with the clinical history to determine etiology but infection or hematoma are the most common possible etiologies. Discharge Plan - Discharge Disposition Patient Disposition: 01 Discharge Home - Discharge Condition Condition: Stable - Discharge Order Discharge Orders: Discharge Order (Routine); Ordered 03/07/18 Ordered By: Hilton Reyes - Discharge Details Discharge Comment: DC once seen by attending - Physicians Team Primary Care Provider: Primary Care Harvey,Radha Attending Provider: Hilton Reyes Other Providers: Arturo Baldwin MD
[2018-03-07] MEDS: Aztreonam Inj 2 GM in Sodium Chloride 0.9% Inj 100 ML IV.SIG SCH (12:22)
== END 2018-03-07 15:46 | disposition home or self-care (01) ==
LOC: NEPC 09:44 → NEDA 09:44 → NEPFCDU 15:29
PROVIDERS: ADMIT Hospitalist; ATTEND Hospitalist

== ENCOUNTER 2018-05-25 22:01 | Inpatient (IN) ==
--- NOTE | 2018-05-25 22:42 | XR ---
EXAM DATE: 05/25/2018 10:37 PM EST AGE/SEX: 53 years / Male INDICATIONS: Chest pain. CLINICAL DATA: This is the patient's initial encounter. Patient reports that signs and symptoms have been present for 1 day and indicates a pain score of 10/10. MEDICAL/SURGICAL HISTORY: . Diabetes. CAD. Cardiomyopathy. Chronic kidney disease. Myocardial i nfarction. Hepatitis. . Hernia repair. Cardiac cath with stented coronary artery. COMPAR[place]: [facility] [place] 1V SINGLE AP, 04/26/2018. . FINDINGS: A single AP view of the chest demonstrates the lungs to be symmetrically aerated without evidence of mass, infiltrate or effusion. The cardiomediastinal contours are unremarkable. Osseous structures a re intact. CONCLUSION: 1. No acute cardiopulmonary disease. Electronically signed by: Matthew Beard MD Board Certified Radiologist 05/25/2018 10:41 PM DON T
[2018-05-25] MEDS ORDERED: Sodium Chlor 0.9% Inj 250 ML IV.SIG SCH (23:00)
[2018-05-25 23:04] LABS: Baso % (Auto) 0.3 % (0.0-2.0); Eos % (Auto) 0.4 % (0.0-4.0); Hematocrit 41.4 % (39.0-51.0); Lymph # (Auto) 0.9 th/mm3 (1.0-4.8); Lymph % (Auto) 21.2 % (9.0-44.0); Mean Corpuscular HGB Conc 31.5 % (32.0-36.0); Mean Corpuscular Hemoglobin 27.5 pg (27.0-34.0); Mean Corpuscular Volume 87.4 fL (80.0-100.0); Mean Platelet Volume 10.4 fL (7.0-11.0); Mono # (Auto) 0.3 th/mm3 (0.0-0.9); Mono % (Auto) 7.3 % (0.0-8.0); Neut % (Auto) 70.8 % (16.0-70.0); Platelet Count 195 th/mm3 (150-450); Red Blood Count 4.73 mil/mm3 (4.50-5.90); Red Cell Distribution Width 13.9 % (11.6-17.2); White Blood Count 4.3 th/mm3 (4.0-11.0)
[2018-05-25 23:12] LABS: Bilirubin,Urine Negative (Negative); Clarity,Urine Clear (Clear); Color,Urine Colorless (Yellw/Straw); Glucose,Urine (UA) 500 or Greater mg/dL (Negative); Leukocyte Esterase,Urine Negative (Negative); Mucus,Urine Few /lpf (Occasional); Nitrite,Urine Negative (Negative); Specific Gravity,Urine 1.026 (1.002-1.035)
[2018-05-25 23:14] LABS: Amphetamine Screen,Urine Neg (Neg); Barbiturate Screen,Urine Neg (Neg); Cannabinoid Screen,Urine Neg (Neg); Cocaine Screen,Urine Pos (Neg)
--- NOTE | 2018-05-25 23:14 | ED ---
HPI General Chief complaint: Medical Clearance Stated complaint: Blood pressure Time Seen by Provider: 05/25/18 22:23 Source: patient Mode of arrival: ambulatory Limitations: no limitations History of Present Illness HPI narrative: Patient is a 53-year-old male presenting to the emergency department for evaluation of weakness, elevated blood sugar. Patient reports that he knows his blood sugars high because he feels weak and cannot hold his urine. He also reports increased thirst, body aches, nausea. Patient states he has not had any insulin since May 13. He states that he left his backpack at a friend's house and his friend will not give it to him. Patient also reports not having any food in the last 3 days. He did however use crack cocaine yesterday. Patient does not rate his pain he states it "just hurts". He denies any chest pain, fever, chills, headache, shortness of breath, dizziness. Related Data Previous Rx's Medication Instructions Recorded blood sugar diagnostic [Truetest #1 box 04/28/18 Test Strips] blood-glucose meter #1 each 04/28/18 carvedilol 3.125 mg PO BID 30 Days #60 tab 04/28/18 clopidogrel 75 mg PO DAILY 30 Days #30 tab 04/28/18 gabapentin [Neurontin] 300 mg PO HS 30 Days #30 cap 04/28/18 insulin NPH and regular human 10 units SUBCUT DAILY@1700 30 Days 04/28/18 [Novolin 70/30 U-100 Insulin] ml insulin NPH and regular human 20 units SUBCUT DAILY@0800 30 Days 04/28/18 [Novolin 70/30 U-100 Insulin] ml insulin aspart U-100 [Novolog See Label Instructions .ROUTE 04/28/18 U-100 Insulin aspart] .COMPLEX 30 Days ml insulin syringe-needle U-100 #100 each 04/28/18 lisinopril 5 mg PO DAILY 30 Days #30 tab 04/28/18 Allergies Allergy/AdvReac Type Severity Reaction Status Date / Time No Known Allergies Allergy Verified 05/25/18 22:14 Review of Systems ROS: all other systems reviewed are negative [facility] Medical History Medical History CAD (coronary artery disease) (Acute) Chronic kidney disease (Acute) Cardiomyopathy (Acute) Heart attack (Acute) Abdominal hernia (Acute) Diabetes (Acute) Hepatitis (Acute) Surgical History Surgical History Stented coronary artery (Acute) Hx of hernia repair (Acute) Family History Family History Mother Family history of diabetes mellitus Social History Social History Substance History: Active Abuse Second Hand Smoke Exposure: Yes Smoking Status: Never smoker Tobacco Type: Cigarettes How Often Do You Have a Drink Containing Alcohol: Never Recent Travel in [facility] within the Last 8 Weeks: No Recent Out of Country Travel within the Last 8 Weeks: No Substance Abuse Detail Crack/Cocaine: Substance Use Status: Active Route Used Substance Abuse: Inhalation Reason for Use: Calm Down Immunization History Tetanus Immunization: Unsure Exam Narrative Exam Narrative: GENERAL: Thin, cachectic alert -Citizen Of [place] male, appears older than stated age. SKIN: Focused skin assessment warm/dry. HEAD: Atraumatic. Normocephalic. EYES: Pupils equal and round. No scleral icterus. No injection or drainage. ENT: No nasal bleeding or discharge. Mucous membranes pink and moist. NECK: Trachea midline. No JVD. CARDIOVASCULAR: Regular rate and rhythm. No murmur appreciated. RESPIRATORY: No accessory muscle use. Clear to auscultation. Breath sounds equal bilaterally. GASTROINTESTINAL: Abdomen soft, non-tender, nondistended. Hepatic and splenic margins not palpable. MUSCULOSKELETAL: No obvious deformities. No clubbing. No cyanosis. No edema. NEUROLOGICAL: Awake and alert. No obvious cranial nerve deficits. Motor grossly within normal limits. Normal speech. PSYCHIATRIC: Appropriate mood and affect; insight and judgment normal. Course Initial Documented Vital Signs Temperature 97.4 F L 05/25/18 22:14 Pulse Rate 87 05/25/18 22:14 Respiratory Rate 16 05/25/18 22:14 Blood Pressure 87/61 L 05/25/18 22:14 Pulse Oximetry 98 05/25/18 22:14 Last Documented Vital Signs Temperature 97.4 F L 05/25/18 22:14 Pulse Rate 87 05/25/18 22:18 Respiratory Rate 20 05/25/18 22:18 Blood Pressure 132/90 05/25/18 22:18 Pulse Oximetry 98 05/26/18 00:29 Medical Decision Making MARICRUZ Attestation MARICRUZ supervised visit: Yes Attestation: The patient's work up was started prior to my arrival to ED. In summary the patient has IDDM, systolic CHF w 25% EF and global hypokinesis based on echo from August 2017, CAD, and hx of cocain abuse. Pt arrives today describing total body weakness, polyuria, and hunger. Initial FSG > 600. VG 7.369/45/25 Drug screen positive for cocaine CBC 4,300, 13.0/41/4, 195 CMP 120/5.0, 85/26.3, 17/1.41, AG 9, glucose 1036 AST/ALT 39/106 Beta 0.36 Tn < 0.02 EKG sinus, rate 82, LVH pesent Patient received 8 units of insulin intravenously prior to transition of care to the undersigned. Patient reassessed at approximately 11:45 PM found to be resting comfortably however asked for some food and something to drink. Case discussed with the circuit recorder Dr. Ornelas, management appreciated. MDM Narrative Medical decision making narrative: Patient presented for evaluation of hyperglycemia. Labs and imaging ordered and pending. Initial blood pressure was hypotensive however patient's blood pressure was reassessed when he was brought to echo 53 and he is normotensive. Initial blood glucose is greater than 600. Patient will be given cautious IV fluid resuscitation due to congestive heart failure, last ejection fraction was around 25%. A 250 mL bolus , 8 units of IV insulin ordered. Medical Screen Exam Complete: Yes Emergency Medical Condition: Yes Differential Diagnosis Differential Diagnosis: Hyperglycemia versus DKA versus noncompliance versus metabolic abnormality versus other Medical Records Medical records reviewed: Yes I reviewed the patient's medical records. Patient has similar presentation at the end of March. At that time he reported the backpack was at his friend's house and he was unable to get it. Lab Data Result diagrams: 05/25/18 22:50 05/25/18 22:50 Lab Results 05/25/18 05/25/18 05/25/18 Range/Units 22: 22:40 22:40 WBC (4.0-11.0) th/mm3 RBC (4.50-5.90) mil/mm3 Hgb (13.0-17.0) gm/dL Hct (39.0-51.0) % MCV (80.0-100.0) fL MCH (27.0-34.0) pg MCHC (32.0-36.0) % RDW (11.6-17.2) % Plt Count (150-450) th/mm3 MPV (7.0-11.0) fL Neut % (Auto) (16.0-70.0) % Lymph % (Auto) (9.0-44.0) % Davidson % (Auto) (0.0-8.0) % Eos % (Auto) (0.0-4.0) % Baso % (Auto) (0.0-2.0) % Neut # (Auto) (1.8-7.7) th/mm3 Lymph # (Auto) (1.0-4.8) th/mm3 Davidson # (Auto) (0.0-0.9) th/mm3 Eos # (Auto) (0.0-0.4) th/mm3 Baso # (Auto) (0.0-0.2) th/mm3 WBC Differential Differential Comment Puncture Site Patient Temperature VBG pH (7.360-7.400) VBG pCO2 (44-48) mmHG VBG pO2 (35-40) mmHG VBG HCO3 (22-26) mmol/L VBG O2 Saturation (70-76) % VBG O2 Content (9.0-17.0) Vol % VBG Base Excess (-2-2) mmol/L VBG Carboxyhemoglobin (0-4) % VBG Methemoglobin (0-2) % Hemoglobin (12.0-16.0) G/DL O2 Delivery Device Inspired O2 % Critical Value Sodium (136-145) meq/L Potassium (3.5-5.1) meq/L Chloride (98-107) meq/L Carbon Dioxide (21.0-32.0) meq/L Anion Gap (5-15) meq/L BUN (7-18) mg/dL Creatinine (0.60-1.30) mg/dL Estimated GFR (>89) mL/min POC Glucose Greater than 600 H* (68-110) mg/dl Random Glucose (74-106) mg/dL Calcium (8.5-10.1) mg/dL Magnesium (1.5-2.5) mg/dL Total Bilirubin (0.2-1.0) mg/dL AST (15-37) U/L ALT (12-78) U/L Alkaline Phosphatase (45-117) U/L Total Creatine Kinase (39-308) U/L Troponin I (0.02-0.05) ng/mL Total Protein (6.4-8.2) g/dL Albumin (3.4-5.0) g/dL Beta-Hydroxybutyric Acd (0.00-0.39) mmol/L Urine Color Colorless (Yellw/Straw) Urine Clarity Clear (Clear) Urine pH 6.0 (5.0-8.5) Ur Specific [place] 1.026 (1.002-1.035) Urine Protein Negative (Neg-Trace) mg/dL Urine Glucose (UA) 500 or greater H (Negative) mg/dL Urine Ketones Negative (Negative) mg/dL Urine Occult Blood Negative (Negative) Urine Nitrate Negative (Negative) Urine Bilirubin Negative (Negative) Urine Urobilinogen Less than 2 (Less than 2) mg/dL Ur Leukocyte Esterase Negative (Negative) Urine RBC Less than 1 (0-3) /hpf Urine WBC Less than 1 (0-5) /hpf Urine Mucus Few H (Occasional) /lpf Micro UA Comment Culture not ind Ur Microscopic Review Not Reportable Urine Culture Comments Culture not ind Urine Opiates Screen Neg (Neg) Ur Barbiturates Screen Neg (Neg) Ur Amphetamines Screen Neg (Neg) U Benzodiazepines Scrn Neg (Neg) Urine Cocaine Screen Pos H (Neg) U Cannabinoids Screen Neg (Neg) Serum Alcohol (0-5) mg/dL 05/25/18 05/25/18 05/25/18 Range/Units 22:50 22:50 22:50 WBC 4.3 (4.0-11.0) th/mm3 RBC 4.73 (4.50-5.90) mil/mm3 Hgb 13.0 (13.0-17.0) gm/dL Hct 41.4 (39.0-51.0) % MCV 87.4 (80.0-100.0) fL MCH 27.5 (27.0-34.0) pg MCHC 31.5 L (32.0-36.0) % RDW 13.9 (11.6-17.2) % Plt Count 195 (150-450) th/mm3 MPV 10.4 (7.0-11.0) fL Neut % (Auto) 70.8 H (16.0-70.0) % Lymph % (Auto) 21.2 (9.0-44.0) % Davidson % (Auto) 7.3 (0.0-8.0) % Eos % (Auto) 0.4 (0.0-4.0) % Baso % (Auto) 0.3 (0.0-2.0) % Neut # (Auto) 3.0 (1.8-7.7) th/mm3 Lymph # (Auto) 0.9 L (1.0-4.8) th/mm3 Davidson # (Auto) 0.3 (0.0-0.9) th/mm3 Eos # (Auto) 0.0 (0.0-0.4) th/mm3 Baso # (Auto) 0.0 (0.0-0.2) th/mm3 WBC Differential . Differential Comment Auto diff final Puncture Site Patient Temperature VBG pH (7.360-7.400) VBG pCO2 (44-48) mmHG VBG pO2 (35-40) mmHG VBG HCO3 (22-26) mmol/L VBG O2 Saturation (70-76) % VBG O2 Content (9.0-17.0) Vol % VBG Base Excess (-2-2) mmol/L VBG Carboxyhemoglobin (0-4) % VBG Methemoglobin (0-2) % Hemoglobin (12.0-16.0) G/DL O2 Delivery Device Inspired O2 % Critical Value Sodium 120 L* (136-145) meq/L Potassium 5.0 (3.5-5.1) meq/L Chloride 85 L (98-107) meq/L Carbon Dioxide 26.3 (21.0-32.0) meq/L Anion Gap 9 (5-15) meq/L BUN 17 (7-18) mg/dL Creatinine 1.41 H (0.60-1.30) mg/dL Estimated GFR 64 L (>89) mL/min POC Glucose (68-110) mg/dl Random Glucose 1036 H* (74-106) mg/dL Calcium 8.2 L (8.5-10.1) mg/dL Magnesium 2.3 (1.5-2.5) mg/dL Total Bilirubin 0.7 (0.2-1.0) mg/dL AST 39 H (15-37) U/L ALT 106 H (12-78) U/L Alkaline Phosphatase 80 (45-117) U/L Total Creatine Kinase 251 (39-308) U/L Troponin I Less than 0.02 L (0.02-0.05) ng/mL Total Protein 7.1 (6.4-8.2) g/dL Albumin 3.7 (3.4-5.0) g/dL Beta-Hydroxybutyric Acd (0.00-0.39) mmol/L Urine Color (Yellw/Straw) Urine Clarity (Clear) Urine pH (5.0-8.5) Ur Specific Tyrone (1.002-1.035) Urine Protein (Neg-Trace) mg/dL Urine Glucose (UA) (Negative) mg/dL Urine Ketones (Negative) mg/dL Urine Occult Blood (Negative) Urine Nitrate (Negative) Urine Bilirubin (Negative) Urine Urobilinogen (Less than 2) mg/dL Ur Leukocyte Esterase (Negative) Urine RBC (0-3) /hpf Urine WBC (0-5) /hpf Urine Mucus (Occasional) /lpf Micro UA Comment Ur Microscopic Review Urine Culture Comments Urine Opiates Screen (Neg) Ur Barbiturates Screen (Neg) Ur Amphetamines Screen (Neg) U Benzodiazepines Scrn (Neg) Urine Cocaine Screen (Neg) U Cannabinoids Screen (Neg) Serum Alcohol Less than 3 (0-5) mg/dL 05/25/18 05/25/18 05/25/18 Range/Units 22:50 23:35 23:38 WBC (4.0-11.0) th/mm3 RBC (4.50-5.90) mil/mm3 Hgb (13.0-17.0) gm/dL Hct (39.0-51.0) % MCV (80.0-100.0) fL MCH (27.0-34.0) pg MCHC (32.0-36.0) % RDW (11.6-17.2) % Plt Count (150-450) th/mm3 MPV (7.0-11.0) fL Neut % (Auto) (16.0-70.0) % Lymph % (Auto) (9.0-44.0) % Davidson % (Auto) (0.0-8.0) % Eos % (Auto) (0.0-4.0) % Baso % (Auto) (0.0-2.0) % Neut # (Auto) (1.8-7.7) th/mm3 Lymph # (Auto) (1.0-4.8) th/mm3 Davidson # (Auto) (0.0-0.9) th/mm3 Eos # (Auto) (0.0-0.4) th/mm3 Baso # (Auto) (0.0-0.2) th/mm3 WBC Differential Differential Comment Puncture Site By rn from iv site Patient Temperature 98.6 VBG pH 7.37 (7.360-7.400) VBG pCO2 46 (44-48) mmHG VBG pO2 30 L (35-40) mmHG VBG HCO3 26 (22-26) mmol/L VBG O2 Saturation 56 L (70-76) % VBG O2 Content 8.6 L (9.0-17.0) Vol % VBG Base Excess 0.9 (-2-2) mmol/L VBG Carboxyhemoglobin 3.5 (0-4) % VBG Methemoglobin 0.8 (0-2) % Hemoglobin 11.0 L (12.0-16.0) G/DL O2 Delivery Device Room air Inspired O2 21 % Critical Value No Sodium (136-145) meq/L Potassium (3.5-5.1) meq/L Chloride (98-107) meq/L Carbon Dioxide (21.0-32.0) meq/L Anion Gap (5-15) meq/L BUN (7-18) mg/dL Creatinine (0.60-1.30) mg/dL Estimated GFR (>89) mL/min POC Glucose Greater than 600 H* (68-110) mg/dl Random Glucose (74-106) mg/dL Calcium (8.5-10.1) mg/dL Magnesium (1.5-2.5) mg/dL Total Bilirubin (0.2-1.0) mg/dL AST (15-37) U/L ALT (12-78) U/L Alkaline Phosphatase (45-117) U/L Total Creatine Kinase (39-308) U/L Troponin I (0.02-0.05) ng/mL Total Protein (6.4-8.2) g/dL Albumin (3.4-5.0) g/dL Beta-Hydroxybutyric Acd 0.36 (0.00-0.39) mmol/L Urine Color (Yellw/Straw) Urine Clarity (Clear) Urine pH (5.0-8.5) Ur Specific [place] (1.002-1.035) Urine Protein (Neg-Trace) mg/dL Urine Glucose (UA) (Negative) mg/dL Urine Ketones (Negative) mg/dL Urine Occult Blood (Negative) Urine Nitrate (Negative) Urine Bilirubin (Negative) Urine Urobilinogen (Less than 2) mg/dL Ur Leukocyte Esterase (Negative) Urine RBC (0-3) /hpf Urine WBC (0-5) /hpf Urine Mucus (Occasional) /lpf Micro UA Comment Ur Microscopic Review Urine Culture Comments Urine Opiates Screen (Neg) Ur Barbiturates Screen (Neg) Ur Amphetamines Screen (Neg) U Benzodiazepines Scrn (Neg) Urine Cocaine Screen (Neg) U Cannabinoids Screen (Neg) Serum Alcohol (0-5) mg/dL Imaging Data Radiologist's impression: Chest X-Ray 05/25/18 22:23 CONCLUSION: 1. No acute cardiopulmonary disease. Discharge Plan Discharge Disposition Patient Disposition: ED Admit(ED Internal Use Only) Discharge Order Discharge Orders: ED Use Only Admit Order (Routine); Ordered 05/26/18 Ordered By: Wilmer Bermeo Physicians Team ED Provider: Wilmer Bermeo ED Midlevel Provider: Jemima Wolf Primary Care Provider: Primary Care Radha Gabriel Attending Provider: Michael Ornelas Discharge Interventions Interventions: Vital Signs Last Done: 05/25/18 22:18 Status ED Status: Admitted Patient
[2018-05-25 23:16] LABS: Opiate Screen,Urine Neg (Neg)
[2018-05-25 23:40] LABS: Alanine Aminotransferase 106 U/L (12-78); Albumin 3.7 g/dL (3.4-5.0); Alkaline Phosphatase 80 U/L (45-117); Anion Gap 9 meq/L (5-15); Aspartate Aminotransferase 39 U/L (15-37); Blood Urea Nitrogen 17 mg/dL (7-18); Calcium 8.2 mg/dL (8.5-10.1); Carbon Dioxide 26.3 meq/L (21.0-32.0); Chloride 85 meq/L (98-107); Glomerular Filtration Rate 64 mL/min (>89); Magnesium 2.3 mg/dL (1.5-2.5); Total Protein 7.1 g/dL (6.4-8.2)
[2018-05-25 23:45] LABS: VBG Base Excess 0.9 mmol/L (-2-2); VBG Blood Gas Oxygen Content 8.6 Vol % (9.0-17.0); VBG PCO2 46 mmHG (44-48); VBG PH 7.37 (7.360-7.400); VBG PO2 30 mmHG (35-40)
[2018-05-25 23:47] LABS: Sodium 120 meq/L (136-145)
[2018-05-25 23:48] LABS: Glucose,Random 1036 mg/dL (74-106)
[2018-05-26] MEDS ORDERED: Dextrose 50% in Water 50 ML Vial IV.PUSH PRN ×2 (00:11→15:52)
[2018-05-26] MEDS ORDERED: Potassium Chlor 20 mEq Premix 20 MEQ/100 ML PIGGYBACK IV.SIG PRN ×2 (00:12)
[2018-05-26] MEDS ORDERED: Potassium Phosphate Inj 30 MMOL in Sodium Chlor 0.9% Inj 250 ML IV.SIG PRN (00:12)
[2018-05-26] MEDS ORDERED: Potassium Chlor 40 mEq Premix 40 MEQ/100 ML PIGGYBACK IV.SIG PRN ×2 (00:12)
[2018-05-26] MEDS ORDERED: HYDROmorphone PF Inj 1 MG/ML Ampul IV.PUSH PRN (00:12)
[2018-05-26] MEDS ORDERED: Bisacodyl 10 MG Supp RECTAL PRN (00:12)
[2018-05-26] MEDS ORDERED: Acetaminophen 325 MG Tablet PO PRN (00:12)
[2018-05-26] MEDS ORDERED: Magnesium Oxide 400 MG Tablet PO PRN (00:12)
[2018-05-26] MEDS ORDERED: Potassium Phosphate 500 MG Soluble Tablet PO PRN ×2 (00:12)
[2018-05-26] MEDS ORDERED: Magnesium Sulfate Inj 4 GM in Sodium Chlor 0.9% Inj 92 ML IV.SIG PRN (00:12)
[2018-05-26] MEDS ORDERED: Potassium Chloride Liq 20 MEQ/15 ML UDC PO PRN ×2 (00:12)
[2018-05-26] MEDS ORDERED: Magnesium Sulfate Inj 2 GM in Sodium Chlor 0.9% Inj 96 ML IV.SIG PRN (00:12)
[2018-05-26] MEDS ORDERED: Sodium Phosphate Inj 30 MMOL in Sodium Chlor 0.9% Inj 250 ML IV.SIG PRN (00:12)
--- NOTE | 2018-05-26 00:22 | P.HPCC ---
History of Present Illness Service: Critical care medicine Primary Care Physician: No Primary Care Physician Chief Complaint: Generalized fatigue History of Present Illness: 53-year-old male who is poorly compliant with his diabetes and insulin therapy who presents for generalized weakness. He states that he has not had any insulin since 05/13. He admits to using crack cocaine yesterday. He denies any associated symptoms. In the emergency department he was found to have a glucose greater than 1000. He has a sodium 120 which is corrected to 142 given his severe hyperglycemia. He has an acute kidney injury with a creatinine 1.4. Remainder review of systems is negative. Review of Systems All other systems reviewed negative except as stated in HPI PMFSH - History History Provided By: Patient, Medical Record - Medical History Medical History: Medical History (Last Reviewed 05/26/18 @ 00:19 by Michael Ornelas MD) CAD (coronary artery disease) (Acute) Chronic kidney disease (Acute) Cardiomyopathy (Acute) Heart attack (Acute) Abdominal hernia (Acute) Diabetes (Acute) Hepatitis - Surgical History Surgical History: Surgical History (Last Reviewed 05/26/18 @ 00:19 by Michael Ornelas MD) Stented coronary artery (Acute) Hx of hernia repair - Family History Family History: Family History (Last Reviewed 05/26/18 @ 00:19 by Michael Ornelas MD) Mother Family history of diabetes mellitus - Social History I have reviewed the patient's Social History: Yes - Tobacco History Second Hand Smoke Exposure: Yes Smoking Status: Never smoker Tobacco Type: Cigarettes - Alcohol History How Often Do You Have a Drink Containing Alcohol: Never - Substance Use History Substance History: Active Abuse - Substance Use Type Crack/Cocaine Status: Active Route Used: Inhalation Reason for Use: Calm Down - Travel History Recent Travel in the [place] Within the Last 8 Weeks: No Recent Travel Out of the Country Within the Last 8 Weeks: No - Immunization History Tetanus Immunization: Unsure Medications and Allergies Active Medications: Active Medications Acetaminophen (Tylenol) 650 mg PO Q6H PRN PRN Reason: TEMPERATURE > 101 F Albuterol (Duoneb Neb (Prn)) 1 ampul NEB Q2HR NEB PRN PRN Reason: WHEEZING Bisacodyl (Dulcolax Supp) 10 mg RECTAL DAILY PRN PRN Reason: if no BM in last 24h Chlorhexidine Gluconate (Chlorhexidine 2% Cloth) 3 pack TOPICAL DAILY@0400 CARMEN Stop: 05/31/18 03:59 Chlorhexidine Gluconate (Chlorhexidine 2% Cloth) 3 pack TOPICAL DAILY@0400 PRN PRN Reason: Extra cloth needed Stop: 05/31/18 03:59 Dextrose (D50w Vial) 50 ml IV.PUSH UNSCH PRN PRN Reason: PER HYPOGLYCEMIA PROTOCOL Famotidine (Pepcid) 20 mg PO BID CARMEN Hydromorphone HCl (Dilaudid Pf Inj) 0.25 mg IV.PUSH Q1H PRN PRN Reason: pain 8-10 or not taking po Insulin Human Regular 100 unit (/ Sodium Chloride) 100 mls @ 0 mls/hr IV.CONT TITRATE PRN; Protocol PRN Reason: See protocol Lactated Ringer's (Lr 1000 Ml Inj) 1,000 mls @ 120 mls/hr IV.CONT .Q8H20M CARMEN Lactulose (Lactulose Liq) 30 ml PO BID CARMEN Sodium Chloride (Ns Flush) 2 ml IV.FLUSH PRN PRN PRN Reason: FLUSH AFTER USING IV ACCESS Last Admin: 05/25/18 23:14 Dose: 2 ml Allergies Allergy/AdvReac Type Severity Reaction Status Date / Time No Known Allergies Allergy Verified 05/25/18 22:14 Results - Labs CBC & Chem 7: 05/25/18 22:50 05/25/18 22:50 Labs: Short CBC 05/25/18 Range/Units 22:50 WBC 4.3 (4.0-11.0) th/mm3 Hgb 13.0 (13.0-17.0) gm/dL Hct 41.4 (39.0-51.0) % Plt Count 195 (150-450) th/mm3 [facility] 05/25/18 22:50 Sodium 120 L* Potassium 5.0 Chloride 85 L Carbon Dioxide 26.3 BUN 17 Creatinine 1.41 H Calcium 8.2 L Cardiac Enzymes 05/25/18 05/25/18 Range/Units 22:50 22:50 Total Creatine Kinase 251 (39-308) U/L Troponin I Less than 0.02 L (0.02-0.05) ng/mL Liver Function 05/25/18 Range/Units 22:50 Total Bilirubin 0.7 (0.2-1.0) mg/dL AST 39 H (15-37) U/L ALT 106 H (12-78) U/L Alkaline Phosphatase 80 (45-117) U/L Albumin 3.7 (3.4-5.0) g/dL Urine 05/25/18 Range/Units 22:40 Urine Color Colorless (Yellw/Straw) Urine Clarity Clear (Clear) Urine pH 6.0 (5.0-8.5) Ur Specific Howard 1.026 (1.002-1.035) Urine Protein Negative (Neg-Trace) mg/dL Urine Glucose (UA) 500 or greater H (Negative) mg/dL - Imaging Impressions Chest X-Ray 05/25/18 22:23 CONCLUSION: 1. No acute cardiopulmonary disease. Exam Vital signs: Vital Signs 05/25/18 22:14 05/25/18 22:18 Temperature 36.3 C L Pulse Rate 87 87 Respiratory Rate 16 20 Blood Pressure 87/61 L 132/90 Pulse Oximetry 98 98 Intake & Output 05/25/18 05/25/18 05/26/18 06:59 18:59 06:59 Intake Total 250 / 250 Balance 250 / 250 Weight 52.163 kg Intake: IV 250 / 250 NS Inj 250 ML @ 500 mls/hr IV. 250 / 250 [facility] Rx#:[id number] Narrative: GENERAL: Middle-age male who appears older than stated age, lying in bed, very disheveled with poor hygiene HEENT: Normocephalic. Atraumatic. Pupils equal, round, reactive, conjugate. Mucous membranes are dry. Very poor dentition. NECK: Trachea is midline. There is no JVD. CHEST: Equal chest rise. Nasal cannula oxygen. CARDIOVASCULAR: Normal rate, regular rhythm. Sinus. ABDOMEN: Soft, nontender, nondistended. No guarding. MUSCULOSKELETAL: Pulses 2+. No peripheral edema. NEUROLOGICAL: RASS -1. Moves all extremities. Follow commands. No focal deficits. Caprini VTE Risk Assessment Caprini VTE Risk Assessment: Moderate/High Risk (score >= 2) Caprini Risk Assessment Model: Point Value = 1 Point Value = 2 Point Value = 3 Point Value = 5 Age 41-60 Minor surgery BMI > 25 kg/m2 Swollen legs Varicose veins or History of unexplained or recurrent spontaneous Oral contraceptives or hormone replacement Sepsis (< 1 month) Serious lung disease, including pneumonia (< 1 month) Abnormal pulmonary function Acute myocardial infarction Congestive heart failure (< 1 month) History of inflammatory bowel disease Medical patient at bed rest Age 61-74 Arthroscopic surgery Major open surgery (> 45 min) Laparoscopic surgery (> 45 min) Malignancy Confined to bed (> 72 hours) Immobilizing plaster cast Central venous access Age >= 75 History of VTE Family history of VTE Factor V Leiden Prothrombin [id number] Lupus anticoagulant Anticardiolipin antibodies Elevated serum homocysteine Heparin-induced thrombocytopenia Other congenital or acquired thrombophilia Stroke (< 1 month) Elective arthroplasty Hip, pelvis, or leg fracture Acute spinal cord injury (< 1 month) Prophylaxis Regimen: Total Risk Factor Score Risk Level Prophylaxis Regimen 0-1 Low Early ambulation 2 Moderate Order ONE of the following: *Sequential Compression Device (SCD) *Heparin 5000 units SQ BID 3-4 Higher Order ONE of the following medications: *Heparin 5000 units SQ TID *Enoxaparin/Lovenox 40 mg SQ daily (WT < 150 kg, CrCl > 30 mL/min) *Enoxaparin/Lovenox 30 mg SQ daily (WT < 150 kg, CrCl > 10-29 mL/min) *Enoxaparin/Lovenox 30 mg SQ BID (WT < 150 kg, CrCl > 30 mL/min) AND/OR *Sequential Compression Device (SCD) 5 or more Highest Order ONE of the following medications: *Heparin 5000 units SQ TID (Preferred with Epidurals) *Enoxaparin/Lovenox 40 mg SQ daily (WT < 150 kg, CrCl > 30 mL/min) *Enoxaparin/Lovenox 30 mg SQ daily (WT < 150 kg, CrCl > 10-29 mL/min) *Enoxaparin/Lovenox 30 mg SQ BID (WT < 150 kg, CrCl > 30 mL/min) AND *Sequential Compression Device (SCD) Assessment and Plan - Assessment and Plan Plan: Assessment: 53-year-old male with severe hyperglycemia and hyperosmolar nonketotic state. Admit to ICU. Insulin drip and iv fluid hydration for severe dehydration. Hyperosmolar Nonketotic State Severe hyperglycemia Severe dehydration Pseudohyponatremia secondary to hyperglycemia Acute kidney injury admit to ICU insulin drip q1h accuchecks LR @ 120cc/hr for volume resuscitation daily cbc, bmp, mg, phos aggressive pulmonary toilet advance diet after glucose < 300 mg/dL SCDs SQH pepcid ICU electrolyte protocol ANAMIKA secondary to dehydration strict i/o's
[2018-05-26] MEDS: Insulin Regular (For Infusion) 100 UNIT in Sodium Chlor 0.9% Inj 99 ML IV.CONT PRN ×2 (01:13→15:38)
[2018-05-26] MEDS ORDERED: Chlorhexidine Gluconate 2% 1 Pack (2 Cloths) TOPICAL PRN (04:00)
[2018-05-26] MEDS: Chlorhexidine Gluconate 2% 1 Pack (2 Cloths) TOPICAL SCH (04:17)
[2018-05-26] MEDS: Heparin - SQ 10,000 UNITS/ML Vial SQ SCH ×3 (06:31→21:05)
[2018-05-26] MEDS: Senna/Docusate Sodium 8.6/50 MG Tablet PO SCH ×2 (08:28→21:05)
[2018-05-26] MEDS: Famotidine 20 MG Tablet PO SCH ×2 (08:28→21:05)
[2018-05-26] MEDS: Insulin Detemir Inj 1,000 UNIT/10 ML Vial SQ SCH (08:29)
--- NOTE | 2018-05-26 16:13 | P.PN ---
Subjective Interval history: 53-year-old male who is poorly compliant with his diabetes and insulin therapy who presents for generalized weakness. He states that he has not had any insulin since 05/13. He admits to using crack cocaine yesterday. He denies any associated symptoms. In the emergency department he was found to have a glucose greater than 1000. He has a sodium 120 which is corrected to 142 given his severe hyperglycemia. He has an acute kidney injury with a creatinine 1.4. Remainder review of systems is negative. Subjective Patient is currently off insulin drip. Blood sugar stabilized. Resume insulin detemir 15 units at night along with 10 units in the morning. Sliding scale started. Denies pain. Physical Exam Vital signs: Vital Signs 05/25/18 22:14 05/25/18 22:18 05/26/18 00:29 Temperature 97.4 F L Pulse Rate 87 87 Respiratory Rate 16 20 Blood Pressure 87/61 L 132/90 Pulse Oximetry 98 98 98 05/26/18 01:36 05/26/18 01:56 05/26/18 02:00 Temperature 98.2 F Pulse Rate 86 82 84 Respiratory Rate 20 21 14 Blood Pressure 130/89 Pulse Oximetry 98 05/26/18 02:22 05/26/18 02:23 05/26/18 02:30 Temperature 98.6 F Pulse Rate 68 67 74 Respiratory Rate 9 L 7 L 14 Blood Pressure 166/108 H 181/90 H 186/87 H Pulse Oximetry 100 100 99 05/26/18 02:31 05/26/18 03:00 05/26/18 03:30 Temperature Pulse Rate 80 65 69 Respiratory Rate 15 15 Blood Pressure 159/91 H 127/78 Pulse Oximetry 100 100 05/26/18 04:00 05/26/18 04:01 05/26/18 04:30 Temperature Pulse Rate 75 70 74 Respiratory Rate 14 17 17 Blood Pressure 161/72 H 121/67 Pulse Oximetry 100 100 100 05/26/18 05:00 05/26/18 05:08 05/26/18 06:00 Temperature Pulse Rate 84 84 82 Respiratory Rate 20 17 19 Blood Pressure 162/67 H 137/56 L Pulse Oximetry 100 100 100 05/26/18 07:00 05/26/18 08:00 05/26/18 09:00 Temperature 98.7 F Pulse Rate 67 64 87 Respiratory Rate 18 15 18 Blood Pressure Pulse Oximetry 100 100 100 05/26/18 10:00 05/26/18 10:15 05/26/18 10:30 Temperature Pulse Rate 83 84 85 Respiratory Rate 15 22 22 Blood Pressure 106/75 111/78 Pulse Oximetry 100 98 98 05/26/18 11:00 Temperature Pulse Rate 84 Respiratory Rate 17 Blood Pressure 128/65 Pulse Oximetry 100 Intake & Output 05/25/18 05/26/18 05/26/18 18:59 06:59 18:59 Intake Total 1250 / 1250 1091 / 1091 Output Total 400 / 400 Balance 850 / 850 1091 / 1091 Weight 51.4 kg Intake: IV 1250 / 1250 1091 / 1091 NovoLIN R (IV Infusion) 100 91 / 91 UNIT In NS Inj 99 ML @ 3 UNITS/ HR 3 mls/hr IV.CONT TITRATE PRN Rx#:[id number] LR 1000 mL Inj 1,000 ML @ 120 1000 / 1000 mls/hr IV.CONT .Q8H20M [facility] Rx#: [id number] LR 1000 mL Inj 1,000 ML @ Wide 1000 / 1000 Open IV.SIG BOLUS ONE Rx#: [id number] NS Inj 250 ML @ 500 mls/hr IV. 250 / 250 SIG BOLUS [facility] Rx#:[id number] Output: Urine Amount (Catheter) 400 / 400 Condom 400 / 400 Other: Date of Last Bowel Movement 05/26/18 05/26/18 # Incontinent Bowel Movements 1 Weight On Admission 52.9 kg - Constitutional no acute distress - Routine HEENT Exam Head: Present: normocephalic, atraumatic Eye: Present: EOMI, PERRL, normal accommodation ENT: Present: mucous membranes moist - Routine Neck Exam Present: supple, full ROM. Absent: JVD - Routine Respiratory Exam Present: CTA bilaterally. Absent: accessory muscle use - Routine Cardiovascular Exam Present: RRR, S1, S2. Absent: murmur - Routine Abdominal Exam Present: soft, normoactive bowel sounds - Routine Exam Patient deferred: penile exam, testicular exam, scrotal exam, groin exam, perineal exam - Routine Skin Exam Present: intact - Routine Neurological Exam Present: alert, oriented X3, CN II-XII intact - Urinary Catheter Management Straight Cath placed during this visit: yes Reason for continuing: Not indwelling catheter Insertion date: 05/25/18 Insertion time: 22:48 Condom Cath placed during this visit: no Results - Labs CBC & Chem 7: 05/25/18 22:50 05/25/18 22:50 Laboratory Results - last 24 hr 05/25/18 05/25/18 05/25/18 22:19 22:40 22:40 WBC RBC Hgb Hct MCV MCH MCHC RDW Plt Count MPV Neut % (Auto) Lymph % (Auto) Glynn % (Auto) Eos % (Auto) Baso % (Auto) Neut # (Auto) Lymph # (Auto) Glynn # (Auto) Eos # (Auto) Baso # (Auto) WBC Differential Differential Comment Puncture Site Patient Temperature VBG pH VBG pCO2 VBG pO2 VBG HCO3 VBG O2 Saturation VBG O2 Content VBG Base Excess VBG Carboxyhemoglobin VBG Methemoglobin Hemoglobin O2 Delivery Device Inspired O2 Critical Value Sodium Potassium Chloride Carbon Dioxide Anion Gap BUN Creatinine Estimated GFR POC Glucose Greater than 600 H* Random Glucose Calcium Magnesium Total Bilirubin AST ALT Alkaline Phosphatase Total Creatine Kinase Troponin I Total Protein Albumin Beta-Hydroxybutyric Acd Urine Color Colorless Urine Clarity Clear Urine pH 6.0 Ur Specific Gipsy 1.026 Urine Protein Negative Urine Glucose (UA) 500 or greater H Urine Ketones Negative Urine Occult Blood Negative Urine Nitrate Negative Urine Bilirubin Negative Urine Urobilinogen Less than 2 Ur Leukocyte Esterase Negative Urine RBC Less than 1 Urine WBC Less than 1 Urine Mucus Few H Micro UA Comment Culture not ind Ur Microscopic Review Not Reportable Urine Culture Comments Culture not ind Nasal Screen MRSA (PCR) Urine Opiates Screen Neg Ur Barbiturates Screen Neg Ur Amphetamines Screen Neg U Benzodiazepines Scrn Neg Urine Cocaine Screen Pos H U Cannabinoids Screen Neg Serum Alcohol 05/25/18 05/25/18 05/25/18 22:50 22:50 22:50 WBC 4.3 RBC 4.73 Hgb 13.0 Hct 41.4 MCV 87.4 MCH 27.5 MCHC 31.5 L RDW 13.9 Plt Count 195 MPV 10.4 Neut % (Auto) 70.8 H Lymph % (Auto) 21.2 Glynn % (Auto) 7.3 Eos % (Auto) 0.4 Baso % (Auto) 0.3 Neut # (Auto) 3.0 Lymph # (Auto) 0.9 L Glynn # (Auto) 0.3 Eos # (Auto) 0.0 Baso # (Auto) 0.0 WBC Differential . Differential Comment Auto diff final Puncture Site Patient Temperature VBG pH VBG pCO2 VBG pO2 VBG HCO3 VBG O2 Saturation VBG O2 Content VBG Base Excess VBG Carboxyhemoglobin VBG Methemoglobin Hemoglobin O2 Delivery Device Inspired O2 Critical Value Sodium 120 L* Potassium 5.0 Chloride 85 L Carbon Dioxide 26.3 Anion Gap 9 BUN 17 Creatinine 1.41 H Estimated GFR 64 L POC Glucose Random Glucose 1036 H* Calcium 8.2 L Magnesium 2.3 Total Bilirubin 0.7 AST 39 H ALT 106 H Alkaline Phosphatase 80 Total Creatine Kinase 251 Troponin I Less than 0.02 L Total Protein 7.1 Albumin 3.7 Beta-Hydroxybutyric Acd Urine Color Urine Clarity Urine pH Ur Specific Gipsy Urine Protein Urine Glucose (UA) Urine Ketones Urine Occult Blood Urine Nitrate Urine Bilirubin Urine Urobilinogen Ur Leukocyte Esterase Urine RBC Urine WBC Urine Mucus Micro UA Comment Ur Microscopic Review Urine Culture Comments Nasal Screen MRSA (PCR) Urine Opiates Screen Ur Barbiturates Screen Ur Amphetamines Screen U Benzodiazepines Scrn Urine Cocaine Screen U Cannabinoids Screen Serum Alcohol Less than 3 05/25/18 05/25/18 05/25/18 22:50 23:35 23:38 WBC RBC Hgb Hct MCV MCH MCHC RDW Plt Count MPV Neut % (Auto) Lymph % (Auto) Glynn % (Auto) Eos % (Auto) Baso % (Auto) Neut # (Auto) Lymph # (Auto) Glynn # (Auto) Eos # (Auto) Baso # (Auto) WBC Differential Differential Comment Puncture Site By rn from iv site Patient Temperature 98.6 VBG pH 7.37 VBG pCO2 46 VBG pO2 30 L VBG HCO3 26 VBG O2 Saturation 56 L VBG O2 Content 8.6 L VBG Base Excess 0.9 VBG Carboxyhemoglobin 3.5 VBG Methemoglobin 0.8 Hemoglobin 11.0 L O2 Delivery Device Room air Inspired O2 21 Critical Value No Sodium Potassium Chloride Carbon Dioxide Anion Gap BUN Creatinine Estimated GFR POC Glucose Greater than 600 H* Random Glucose Calcium Magnesium Total Bilirubin AST ALT Alkaline Phosphatase Total Creatine Kinase Troponin I Total Protein Albumin Beta-Hydroxybutyric Acd 0.36 Urine Color Urine Clarity Urine pH Ur Specific Gipsy Urine Protein Urine Glucose (UA) Urine Ketones Urine Occult Blood Urine Nitrate Urine Bilirubin Urine Urobilinogen Ur Leukocyte Esterase Urine RBC Urine WBC Urine Mucus Micro UA Comment Ur Microscopic Review Urine Culture Comments Nasal Screen MRSA (PCR) Urine Opiates Screen Ur Barbiturates Screen Ur Amphetamines Screen U Benzodiazepines Scrn Urine Cocaine Screen U Cannabinoids Screen Serum Alcohol 05/26/18 05/26/18 05/26/18 01:40 02:00 02:54 WBC RBC Hgb Hct MCV MCH MCHC RDW Plt Count MPV Neut % (Auto) Lymph % (Auto) Glynn % (Auto) Eos % (Auto) Baso % (Auto) Neut # (Auto) Lymph # (Auto) Glynn # (Auto) Eos # (Auto) Baso # (Auto) WBC Differential Differential Comment Puncture Site Patient Temperature VBG pH VBG pCO2 VBG pO2 VBG HCO3 VBG O2 Saturation VBG O2 Content VBG Base Excess VBG Carboxyhemoglobin VBG Methemoglobin Hemoglobin O2 Delivery Device Inspired O2 Critical Value Sodium Potassium Chloride Carbon Dioxide Anion Gap BUN Creatinine Estimated GFR POC Glucose 361 H 346 H Random Glucose Calcium Magnesium Total Bilirubin AST ALT Alkaline Phosphatase Total Creatine Kinase Troponin I Total Protein Albumin Beta-Hydroxybutyric Acd Urine Color Urine Clarity Urine pH Ur Specific Gipsy Urine Protein Urine Glucose (UA) Urine Ketones Urine Occult Blood Urine Nitrate Urine Bilirubin Urine Urobilinogen Ur Leukocyte Esterase Urine RBC Urine WBC Urine Mucus Micro UA Comment Ur Microscopic Review Urine Culture Comments Nasal Screen MRSA (PCR) Not detected Urine Opiates Screen Ur Barbiturates Screen Ur Amphetamines Screen U Benzodiazepines Scrn Urine Cocaine Screen U Cannabinoids Screen Serum Alcohol 05/26/18 05/26/18 05/26/18 03:59 04:58 05:21 WBC RBC Hgb Hct MCV MCH MCHC RDW Plt Count MPV Neut % (Auto) Lymph % (Auto) Glynn % (Auto) Eos % (Auto) Baso % (Auto) Neut # (Auto) Lymph # (Auto) Glynn # (Auto) Eos # (Auto) Baso # (Auto) WBC Differential Differential Comment Puncture Site Patient Temperature VBG pH VBG pCO2 VBG pO2 VBG HCO3 VBG O2 Saturation VBG O2 Content VBG Base Excess VBG Carboxyhemoglobin VBG Methemoglobin Hemoglobin O2 Delivery Device Inspired O2 Critical Value Sodium Potassium Chloride Carbon Dioxide Anion Gap BUN Creatinine Estimated GFR POC Glucose 108 85 100 Random Glucose Calcium Magnesium Total Bilirubin AST ALT Alkaline Phosphatase Total Creatine Kinase Troponin I Total Protein Albumin Beta-Hydroxybutyric Acd Urine Color Urine Clarity Urine pH Ur Specific Gipsy Urine Protein Urine Glucose (UA) Urine Ketones Urine Occult Blood Urine Nitrate Urine Bilirubin Urine Urobilinogen Ur Leukocyte Esterase Urine RBC Urine WBC Urine Mucus Micro UA Comment Ur Microscopic Review Urine Culture Comments Nasal Screen MRSA (PCR) Urine Opiates Screen Ur Barbiturates Screen Ur Amphetamines Screen U Benzodiazepines Scrn Urine Cocaine Screen U Cannabinoids Screen Serum Alcohol 05/26/18 05/26/18 05/26/18 06:09 06:54 08:25 WBC RBC Hgb Hct MCV MCH MCHC RDW Plt Count MPV Neut % (Auto) Lymph % (Auto) Glynn % (Auto) Eos % (Auto) Baso % (Auto) Neut # (Auto) Lymph # (Auto) Glynn # (Auto) Eos # (Auto) Baso # (Auto) WBC Differential Differential Comment Puncture Site Patient Temperature VBG pH VBG pCO2 VBG pO2 VBG HCO3 VBG O2 Saturation VBG O2 Content VBG Base Excess VBG Carboxyhemoglobin VBG Methemoglobin Hemoglobin O2 Delivery Device Inspired O2 Critical Value Sodium Potassium Chloride Carbon Dioxide Anion Gap BUN Creatinine Estimated GFR POC Glucose 119 H 144 H 288 H Random Glucose Calcium Magnesium Total Bilirubin AST ALT Alkaline Phosphatase Total Creatine Kinase Troponin I Total Protein Albumin Beta-Hydroxybutyric Acd Urine Color Urine Clarity Urine pH Ur Specific G[place] Urine Protein Urine Glucose (UA) Urine Ketones Urine Occult Blood Urine Nitrate Urine Bilirubin Urine Urobilinogen Ur Leukocyte Esterase Urine RBC Urine WBC Urine Mucus Micro UA Comment Ur Microscopic Review Urine Culture Comments Nasal Screen MRSA (PCR) Urine Opiates Screen Ur Barbiturates Screen Ur Amphetamines Screen U Benzodiazepines Scrn Urine Cocaine Screen U Cannabinoids Screen Serum Alcohol 05/26/18 05/26/18 05/26/18 10:14 11:22 12:32 WBC RBC Hgb Hct MCV MCH MCHC RDW Plt Count MPV Neut % (Auto) Lymph % (Auto) Glynn % (Auto) Eos % (Auto) Baso % (Auto) Neut # (Auto) Lymph # (Auto) Glynn # (Auto) Eos # (Auto) Baso # (Auto) WBC Differential Differential Comment Puncture Site Patient Temperature VBG pH VBG pCO2 VBG pO2 VBG HCO3 VBG O2 Saturation VBG O2 Content VBG Base Excess VBG Carboxyhemoglobin VBG Methemoglobin Hemoglobin O2 Delivery Device Inspired O2 Critical Value Sodium Potassium Chloride Carbon Dioxide Anion Gap BUN Creatinine Estimated GFR POC Glucose 201 H 189 H 101 Random Glucose Calcium Magnesium Total Bilirubin AST ALT Alkaline Phosphatase Total Creatine Kinase Troponin I Total Protein Albumin Beta-Hydroxybutyric Acd Urine Color Urine Clarity Urine pH Ur Specific [place] Urine Protein Urine Glucose (UA) Urine Ketones Urine Occult Blood Urine Nitrate Urine Bilirubin Urine Urobilinogen Ur Leukocyte Esterase Urine RBC Urine WBC Urine Mucus Micro UA Comment Ur Microscopic Review Urine Culture Comments Nasal Screen MRSA (PCR) Urine Opiates Screen Ur Barbiturates Screen Ur Amphetamines Screen U Benzodiazepines Scrn Urine Cocaine Screen U Cannabinoids Screen Serum Alcohol 05/26/18 15:17 WBC RBC Hgb Hct MCV MCH MCHC RDW Plt Count MPV Neut % (Auto) Lymph % (Auto) Glynn % (Auto) Eos % (Auto) Baso % (Auto) Neut # (Auto) Lymph # (Auto) Glynn # (Auto) Eos # (Auto) Baso # (Auto) WBC Differential Differential Comment Puncture Site Patient Temperature VBG pH VBG pCO2 VBG pO2 VBG HCO3 VBG O2 Saturation VBG O2 Content VBG Base Excess VBG Carboxyhemoglobin VBG Methemoglobin Hemoglobin O2 Delivery Device Inspired O2 Critical Value Sodium Potassium Chloride Carbon Dioxide Anion Gap BUN Creatinine Estimated GFR POC Glucose 352 H Random Glucose Calcium Magnesium Total Bilirubin AST ALT Alkaline Phosphatase Total Creatine Kinase Troponin I Total Protein Albumin Beta-Hydroxybutyric Acd Urine Color Urine Clarity Urine pH Ur Specific [place] Urine Protein Urine Glucose (UA) Urine Ketones Urine Occult Blood Urine Nitrate Urine Bilirubin Urine Urobilinogen Ur Leukocyte Esterase Urine RBC Urine WBC Urine Mucus Micro UA Comment Ur Microscopic Review Urine Culture Comments Nasal Screen MRSA (PCR) Urine Opiates Screen Ur Barbiturates Screen Ur Amphetamines Screen U Benzodiazepines Scrn Urine Cocaine Screen U Cannabinoids Screen Serum Alcohol - Imaging Impressions Chest X-Ray 05/25/18 22:23 CONCLUSION: 1. No acute cardiopulmonary disease. Assessment and Plan - Plan Addendum the plan. Patient was transitioned from insulin drip to insulin detemir 15 units at night and 10 units in the morning. Sliding scale insulin with aspart insulin. Will monitor the unit overnight. 15 additional minutes added to Dr. Ferrer's H&P. Code Status: Full code Discussed Condition With: Patient. Care plan discussed and all questions answered.
[2018-05-26] MEDS: Insulin NovoLOG Aspart Correctional Sugar Inj SQ SCH ×2 (18:17→21:03)
[2018-05-26] MEDS ORDERED: Insulin Detemir Inj 1,000 UNIT/10 ML Vial SQ SCH (21:00)
[2018-05-26] MEDS: Gabapentin 300 MG Capsule PO SCH (21:05)
--- NOTE | 2018-05-26 21:43 | ECG ---
Date Performed: 05/25/2018 Time Performed: 22:57:08 PTAGE: 53 years EKG: Sinus rhythm LEFT VENTRICULAR HYPERTROPHY AND ST-T CHANGE ABNORMAL ECG PREVIOUS TRACING : 04/26/2018 12.16 Since the previous tracing, no significant change noted DOCTOR: Jluis Mclean Interpretating Date/Time 05/26/2018 21:42:52
[2018-05-27] MEDS: Insulin NovoLOG Aspart Correctional Sugar Inj SQ SCH ×5 (02:51→21:00)
[2018-05-27] MEDS ORDERED: Labetalol HCl Inj 20 MG/4 ML Vial IV.PUSH PRN (03:32)
[2018-05-27] MEDS ORDERED: hydrALAZINE HCl Inj 20 MG/ML Vial IV.PUSH PRN (03:32)
[2018-05-27] MEDS: Chlorhexidine Gluconate 2% 1 Pack (2 Cloths) TOPICAL SCH (04:17)
[2018-05-27] MEDS: Heparin - SQ 10,000 UNITS/ML Vial SQ SCH ×3 (05:33→21:26)
--- NOTE | 2018-05-27 07:55 | P.PNCC ---
Subjective Subjective Remarks/Hospital Course: 53-year-old male who is poorly compliant with his diabetes and insulin therapy who presents for generalized weakness. He states that he has not had any insulin since 05/13. He admits to using crack cocaine yesterday. He denies any associated symptoms. In the emergency department he was found to have a glucose greater than 1000. He has a sodium 120 which is corrected to 142 given his severe hyperglycemia. He has an acute kidney injury with a creatinine 1.4. Remainder review of systems is negative. SUBJECTIVE: 05/27: Requiring as needed antihypertensives overnight. One high blood sugar otherwise stabilized. Very pleasant today. Denies chest pain or shortness of breath per Objective Vital Signs / I&O: Vital Signs 05/26/18 08:00 05/26/18 09:00 05/26/18 10:00 Temperature 98.7 F Pulse Rate 64 87 83 Respiratory Rate 15 18 15 Blood Pressure Pulse Oximetry 100 100 100 05/26/18 10:15 05/26/18 10:30 05/26/18 11:00 Temperature Pulse Rate 84 85 84 Respiratory Rate 22 22 17 Blood Pressure 106/75 111/78 128/65 Pulse Oximetry 98 98 100 05/26/18 11:30 05/26/18 12:00 05/26/18 12:30 Temperature 98 F Pulse Rate 80 77 82 Respiratory Rate 20 17 20 Blood Pressure 132/71 109/73 148/83 H Pulse Oximetry 100 100 100 05/26/18 13:00 05/26/18 13:30 05/26/18 14:00 Temperature Pulse Rate 89 78 82 Respiratory Rate 24 22 19 Blood Pressure 116/79 135/73 Pulse Oximetry 100 100 98 05/26/18 14:30 05/26/18 15:00 05/26/18 15:30 Temperature Pulse Rate 84 79 68 Respiratory Rate 20 16 24 Blood Pressure 139/77 138/77 122/66 Pulse Oximetry 99 99 100 05/26/18 16:00 05/26/18 16:30 05/26/18 17:00 Temperature 98.7 F Pulse Rate 86 82 78 Respiratory Rate 20 20 19 Blood Pressure 128/87 134/65 139/89 Pulse Oximetry 100 100 100 05/26/18 17:30 05/26/18 18:00 05/26/18 18:06 Temperature Pulse Rate 75 85 91 H Respiratory Rate 18 20 Blood Pressure 146/83 H 147/91 H Pulse Oximetry 100 94 L 05/26/18 19:00 05/26/18 19:41 05/26/18 19:45 Temperature Pulse Rate 90 86 Respiratory Rate 19 17 Blood Pressure 138/89 Pulse Oximetry 99 100 100 05/26/18 20:00 05/26/18 21:00 05/26/18 21:09 Temperature 98.6 F Pulse Rate 90 77 91 H Respiratory Rate 19 20 38 H Blood Pressure 140/65 152/84 H Pulse Oximetry 98 100 95 05/26/18 21:30 05/26/18 22:00 05/26/18 22:30 Temperature Pulse Rate 73 83 86 Respiratory Rate 22 18 18 Blood Pressure 154/76 H 129/56 L 134/64 Pulse Oximetry 100 99 98 05/26/18 23:00 05/26/18 23:32 05/27/18 00:00 Temperature 98.8 F Pulse Rate 86 85 84 Respiratory Rate 17 17 17 Blood Pressure 138/98 H 137/62 145/89 H Pulse Oximetry 100 100 100 05/27/18 01:00 05/27/18 02:00 05/27/18 02:01 Temperature Pulse Rate 82 66 73 Respiratory Rate 18 14 15 Blood Pressure 139/66 141/70 H Pulse Oximetry 100 100 99 05/27/18 03:00 05/27/18 03:04 05/27/18 03:06 Temperature Pulse Rate 86 85 84 Respiratory Rate 23 18 18 Blood Pressure 178/102 H 194/116 H Pulse Oximetry 93 L 86 L 91 L 05/27/18 03:09 05/27/18 04:00 05/27/18 04:05 Temperature 98.8 F Pulse Rate 87 79 83 Respiratory Rate 22 33 H Blood Pressure 184/82 H Pulse Oximetry 90 L 05/27/18 04:19 05/27/18 05:00 05/27/18 05:01 Temperature Pulse Rate 86 70 65 Respiratory Rate 16 18 17 Blood Pressure 169/80 H 151/65 H Pulse Oximetry 100 100 100 05/27/18 06:00 05/27/18 07:00 Temperature Pulse Rate 63 62 Respiratory Rate 15 15 Blood Pressure 149/71 H 123/62 Pulse Oximetry Intake & Output 05/26/18 05/27/18 05/27/18 18:59 06:59 18:59 Intake Total 3554.5 / 3554.5 1999 Output Total 1150 / 1150 1500 / 1500 Balance 2404.5 / 2404.5 500 / 500 Weight 52.5 kg Intake: IV 1874.5 / 1874.5 NovoLIN R (IV Infusion) 100 117.5 / 117.5 UNIT In NS Inj 99 ML @ 3 UNITS/ HR 3 mls/hr IV.CONT TITRATE PRN Rx#:[id number] LR 1000 mL Inj 1,000 ML @ 120 1757 / 1757 mls/hr IV.CONT .[id number] CARMEN Rx#: [id number] Oral 1680 / 1680 1999 Output: Urine 1500 / 1500 Urine Amount (Catheter) 1150 / 1150 Condom 1150 / 1150 Other: # Voids 3 Date of Last Bowel Movement 05/26/18 05/27/18 # Bowel Movements 1 2 Result Diagrams: 05/25/18 22:50 05/25/18 22:50 Imaging: Chest X-Ray 05/25/18 22:23 CONCLUSION: 1. No acute cardiopulmonary disease. Objective Remarks: GENERAL: 53-year-old male currently resting in bed in no acute distress SKIN: Warm and dry. HEAD: Atraumatic. Normocephalic. EYES: Pupils equal and round. No scleral icterus. No injection or drainage. ENT: No nasal bleeding or discharge. Mucous membranes pink and moist. NECK: Trachea midline. No JVD. CARDIOVASCULAR: Regular rate and rhythm. S1, S2. No S4. RESPIRATORY: No accessory muscle use. Clear to auscultation. Breath sounds equal bilaterally. GASTROINTESTINAL: Abdomen soft, non-tender, nondistended. Hepatic and splenic margins not palpable. MUSCULOSKELETAL: Extremities without clubbing, cyanosis, or edema. No obvious deformities. NEUROLOGICAL: Awake and alert. No obvious cranial nerve deficits. Motor grossly within normal limits. Five out of 5 muscle strength in the arms and legs. Normal speech. PSYCHIATRIC: Appropriate mood and affect; insight and judgment normal. Assessment and Plan - Assessment and Plan Plan: Hyperosmolar Nonketotic State Severe hyperglycemia Severe dehydration Pseudohyponatremia secondary to hyperglycemia Acute kidney injury Essential hypertension Diabetes mellitus with neuropathy Coronary artery disease Peripheral vascular disease Cocaine abuse Neuro: Currently on oxycodone 5 mg every 4 hours as needed and hydromorphone 0.2 mg every hour as needed for pain CV: Restarted carvedilol 3.2 mg twice daily. Restart lisinopril 5 mg daily. Resp: As needed albuterol aerosols every 2 hours as needed dyspnea. Nasal cannula for saturation critical 90% GI: ADA diet. Famotidine for GI prophylaxis : No indication for Polanco catheter Endo: Insulin detemir 15 units at night. 10 units a.m. Sliding scale insulin. Renal: A.m. laboratories currently pending. Follow creatinine Heme: A.m. CBC currently pending. ID: Monitor for signs and symptomatology of infection MSK: PT evaluate and treat FEN: A.m. laboratory still pending. Level 2 follow-up Stable from critical care standpoint. Assign care to hospitalist in a.m. 05/28. Okay to transfer from ICU.
[2018-05-27] MEDS: Insulin Detemir Inj 1,000 UNIT/10 ML Vial SQ SCH ×2 (08:29→17:37)
[2018-05-27] MEDS: Senna/Docusate Sodium 8.6/50 MG Tablet PO SCH ×2 (08:29→21:17)
[2018-05-27] MEDS: Famotidine 20 MG Tablet PO SCH ×2 (08:29→21:15)
[2018-05-27 11:02] LABS: Baso % (Auto) 0.6 % (0.0-2.0); Eos % (Auto) 0.6 % (0.0-4.0); Hematocrit 34.5 % (39.0-51.0); Hemoglobin 11.4 gm/dL (13.0-17.0); Lymph # (Auto) 1.3 th/mm3 (1.0-4.8); Lymph % (Auto) 29.7 % (9.0-44.0); Mean Corpuscular Volume 81.8 fL (80.0-100.0); Mean Platelet Volume 9.5 fL (7.0-11.0); Mono # (Auto) 0.3 th/mm3 (0.0-0.9); Mono % (Auto) 7.1 % (0.0-8.0); Neut # (Auto) 2.7 th/mm3 (1.8-7.7); Platelet Count 173 th/mm3 (150-450); Red Blood Count 4.22 mil/mm3 (4.50-5.90); Red Cell Distribution Width 13.5 % (11.6-17.2); White Blood Count 4.3 th/mm3 (4.0-11.0)
[2018-05-27 12:08] LABS: Anion Gap 7 meq/L (5-15); Blood Urea Nitrogen 11 mg/dL (7-18); Calcium 7.8 mg/dL (8.5-10.1); Carbon Dioxide 26.6 meq/L (21.0-32.0); Chloride 101 meq/L (98-107); Glomerular Filtration Rate Greater Than 89 mL/min (>89); Glucose,Random 251 mg/dL (74-106); Magnesium 1.8 mg/dL (1.5-2.5); Phosphorus 2.4 mg/dL (2.5-4.9); Potassium 3.9 meq/L (3.5-5.1); Sodium 135 meq/L (136-145)
[2018-05-27] MEDS ORDERED: Magnesium Sulfate Inj 2 GM in Sodium Chlor 0.9% Inj 96 ML IV.SIG ONE (15:00)
[2018-05-27] MEDS: Gabapentin 300 MG Capsule PO SCH (21:15)
[2018-05-28] MEDS: Insulin NovoLOG Aspart Correctional Sugar Inj SQ SCH ×5 (03:49→21:29)
[2018-05-28] MEDS: Chlorhexidine Gluconate 2% 1 Pack (2 Cloths) TOPICAL SCH (04:02)
[2018-05-28] MEDS: Heparin - SQ 10,000 UNITS/ML Vial SQ SCH ×3 (05:23→21:29)
[2018-05-28 09:50] LABS: Anion Gap 8 meq/L (5-15); Blood Urea Nitrogen 22 mg/dL (7-18); Calcium 8.5 mg/dL (8.5-10.1); Carbon Dioxide 26.9 meq/L (21.0-32.0); Chloride 101 meq/L (98-107); Glomerular Filtration Rate Greater Than 89 mL/min (>89); Glucose,Random 185 mg/dL (74-106); Magnesium 2.2 mg/dL (1.5-2.5); Potassium 3.9 meq/L (3.5-5.1); Sodium 136 meq/L (136-145)
[2018-05-28] MEDS: Senna/Docusate Sodium 8.6/50 MG Tablet PO SCH ×2 (09:57→21:28)
[2018-05-28] MEDS: Famotidine 20 MG Tablet PO SCH ×2 (09:57→21:28)
[2018-05-28 09:59] LABS: Phosphorus 2.1 mg/dL (2.5-4.9)
[2018-05-28 16:44] LABS: Baso % (Auto) 0.2 % (0.0-2.0); Eos % (Auto) 0.9 % (0.0-4.0); Hematocrit 33.3 % (39.0-51.0); Lymph % (Auto) 22.2 % (9.0-44.0); Mean Corpuscular HGB Conc 32.9 % (32.0-36.0); Mean Corpuscular Hemoglobin 27.7 pg (27.0-34.0); Mean Corpuscular Volume 84.1 fL (80.0-100.0); Mean Platelet Volume 9.7 fL (7.0-11.0); Mono # (Auto) 0.4 th/mm3 (0.0-0.9); Mono % (Auto) 8.6 % (0.0-8.0); Neut # (Auto) 3.1 th/mm3 (1.8-7.7); Neut % (Auto) 68.1 % (16.0-70.0); Platelet Count 190 th/mm3 (150-450); Red Blood Count 3.96 mil/mm3 (4.50-5.90); Red Cell Distribution Width 13.8 % (11.6-17.2); White Blood Count 4.5 th/mm3 (4.0-11.0)
--- NOTE | 2018-05-28 19:07 | P.PNIM ---
Subjective Interval history: Patient says he is feeling right today. Denies any chest pain or shortness of breath. [place] administer himself insulin. Physical Exam Vital signs: Vital Signs 05/27/18 20:00 05/28/18 00:00 05/28/18 04:00 Temperature 98.7 F 98.5 F 97.4 F L Pulse Rate 94 H 97 H 97 H Respiratory Rate 20 20 20 Blood Pressure 139/91 H 137/80 115/99 H Pulse Oximetry 99 91 L 100 05/28/18 08:00 05/28/18 11:00 05/28/18 11:53 Temperature 98.6 F 98.7 F Pulse Rate 87 90 Respiratory Rate 16 16 Blood Pressure 167/86 H 137/84 Pulse Oximetry 99 96 100 05/28/18 16:00 Temperature 98.4 F Pulse Rate 74 Respiratory Rate 16 Blood Pressure 144/86 H Pulse Oximetry 99 Intake & Output 05/28/18 05/28/18 05/29/18 06:59 18:59 06:59 Intake Total 320 / 320 1500 / 1500 Balance 320 / 320 1500 / 1500 Weight 53 kg Intake: Oral 320 / 320 1500 / 1500 Other: # Voids 2 6 Date of Last Bowel Movement 05/28/18 # Bowel Movements 2 4 Narrative: GENERAL: Patient walking all. Appears comfortable. SKIN: Warm and dry. HEAD: Normocephalic. EYES: No scleral icterus. No injection or drainage. NECK: Supple, trachea midline. CARDIOVASCULAR: Regular rate and rhythm without murmurs, gallops, or rubs. RESPIRATORY: Breath sounds equal bilaterally. No accessory muscle use. GASTROINTESTINAL: Abdomen soft, non-tender, nondistended. MUSCULOSKELETAL: No cyanosis, or edema. BACK: Nontender without obvious deformity. No CVA tenderness. Urinary Catheter Management Straight: Cath placed during this visit: yes Reason for continuing: Not indwelling catheter Insertion date: 05/25/18 Insertion time: 22:48 Condom: Cath placed during this visit: no Results Labs CBC & Chem 7: 05/28/18 16:16 05/28/18 07:16 Assessment and Plan Plan //Hyperosmolar Nonketotic State //Severe hyperglycemia //Severe dehydration Pseudohyponatremia secondary to hyperglycemia Acute kidney injury Essential hypertension Diabetes mellitus with neuropathy Coronary artery disease Peripheral vascular disease Cocaine abuse Neuro: Discontinue pain meds. CV: Blood pressure acceptable. Restarted carvedilol 3.2 mg twice daily. Restart lisinopril 5 mg daily. Resp: As needed albuterol aerosols every 2 hours as needed dyspnea. Nasal cannula for saturation critical 90% GI: ADA diet. Famotidine for GI prophylaxis : No indication for Polanco catheter Endo: Insulin detemir 20 units at night. Continue prandial insulin as well as sliding scale insulin. Glucose elevated today in the 400s. Improved with insulin. Continue to monitor. Will decrease diabetic diet 1800 abhijit and patient advised to avoid outside food. Renal: A.m. laboratories currently pending. Follow creatinine Heme: A.m. CBC currently pending. ID: Monitor for signs and symptomatology of infection MSK: PT evaluate and treat FEN: Continue diabetic diet. [place]po[place] Appreciate case management assistance. Patient would benefit from going to a homeless group home. Progress Note: Quality VTE Deep Vein Thrombosis/Pulmonary Embolism Present on Admission: No
[2018-05-28] MEDS: Gabapentin 300 MG Capsule PO SCH (21:28)
[2018-05-28] MEDS: Insulin Detemir Inj 1,000 UNIT/10 ML Vial SQ SCH (21:30)
[2018-05-29] MEDS: Insulin NovoLOG Aspart Correctional Sugar Inj SQ SCH ×3 (04:17→13:37)
[2018-05-29] MEDS: Chlorhexidine Gluconate 2% 1 Pack (2 Cloths) TOPICAL SCH (04:20)
[2018-05-29] MEDS: Heparin - SQ 10,000 UNITS/ML Vial SQ SCH (05:07)
[2018-05-29] MEDS: Famotidine 20 MG Tablet PO SCH (09:15)
[2018-05-29 10:16] LABS: Baso % (Auto) 0.2 % (0.0-2.0); Eos % (Auto) 1.1 % (0.0-4.0); Hematocrit 33.3 % (39.0-51.0); Hemoglobin 10.8 gm/dL (13.0-17.0); Lymph # (Auto) 1.1 th/mm3 (1.0-4.8); Lymph % (Auto) 23.5 % (9.0-44.0); Mean Corpuscular HGB Conc 32.3 % (32.0-36.0); Mean Corpuscular Hemoglobin 27.2 pg (27.0-34.0); Mean Corpuscular Volume 84.3 fL (80.0-100.0); Mono # (Auto) 0.5 th/mm3 (0.0-0.9); Mono % (Auto) 11.4 % (0.0-8.0); Neut % (Auto) 63.8 % (16.0-70.0); Platelet Count 178 th/mm3 (150-450); Red Blood Count 3.96 mil/mm3 (4.50-5.90); Red Cell Distribution Width 13.9 % (11.6-17.2); White Blood Count 4.7 th/mm3 (4.0-11.0)
[2018-05-29 10:42] LABS: Anion Gap 7 meq/L (5-15); Blood Urea Nitrogen 18 mg/dL (7-18); Calcium 7.9 mg/dL (8.5-10.1); Carbon Dioxide 27.3 meq/L (21.0-32.0); Chloride 99 meq/L (98-107); Glomerular Filtration Rate Greater Than 89 mL/min (>89); Glucose,Random 359 mg/dL (74-106); Magnesium 1.8 mg/dL (1.5-2.5); Phosphorus 2.7 mg/dL (2.5-4.9); Potassium 4.3 meq/L (3.5-5.1); Sodium 133 meq/L (136-145)
[2018-05-29 12:02] VITALS: BP 139/71; PULSE 87; RESP 18; TEMP 98.6; O2SAT 98
[2018-05-29] MEDS: Senna/Docusate Sodium 8.6/50 MG Tablet PO SCH (13:39)
--- NOTE | 2018-05-29 14:09 | P.DS ---
DS: Providers Date of admission: 05/26/18 00:12 Primary care physician: No Primary Care Physician Consults: 05/27/18 07:54 Consult to Hospitalist Routine Consulting Provider: Nayeli Jalloh Reason for Consultation: [place] of care in a.m. 05/28. Admission with hyperosmolar nonketotic state. Cocaine abuse. Notified:: Service Spoke with:: Asim Date Notified:: 05/27/18 Time Notified:: 08:06 Comments:: waiting on assignment - ML Ordering Provider: TERI Brief History from admission: 53-year-old male who is poorly compliant with his diabetes and insulin therapy who presents for generalized weakness. He states that he has not had any insulin since 05/13. He admits to using crack cocaine yesterday. He denies any associated symptoms. In the emergency department he was found to have a glucose greater than 1000. He has a sodium 120 which is corrected to 142 given his severe hyperglycemia. He has an acute kidney injury with a creatinine 1.4. Remainder review of systems is negative. DS: Summary Mr. Kahn is a 53-year-old male. He was admitted secondary to severe hyperglycemia with HHS. Blood sugars were improved on insulin, however patient is homeless and says that he cannot forward, cannot utilize, and cannot take care of needles and insulin vials to dose himself with insulin as an outpatient. Today I was transitioning him to a trial of metformin and glyburide. He needed monitoring on these overnight to ensure no hypoglycemia. Plan was to discharge him tomorrow. Patient decided that he needed to leave AMA and was not willing to wait to complete trial and discharge with new treatment. Time Spent with Patient Total time spent providing and/or coordinating discharge services: Less than 30 minutes Quality: VTE Deep Vein Thrombosis/Pulmonary Embolism Present on Admission: No Results Labs on day of discharge: Labs from last 24 hours 05/29/18 05/29/18 05/29/18 12:31 08:35 08:35 WBC 4.7 RBC 3.96 L Hgb 10.8 L Hct 33.3 L MCV 84.3 MCH 27.2 MCHC 32.3 RDW 13.9 Plt Count 178 MPV 10.0 Neut % (Auto) 63.8 Lymph % (Auto) 23.5 [place] % (Auto) 11.4 H Eos % (Auto) 1.1 Baso % (Auto) 0.2 Neut # (Auto) 3.0 Lymph # (Auto) 1.1 [place] # (Auto) 0.5 Eos # (Auto) 0.0 Baso # (Auto) 0.0 WBC Differential . Differential Comment Auto diff final Sodium 133 L Potassium 4.3 Chloride 99 Carbon Dioxide 27.3 Anion Gap 7 BUN 18 Creatinine 0.85 Estimated GFR Greater than 89 POC Glucose 510 H* Random Glucose 359 H D Calcium 7.9 L Phosphorus 2.7 Magnesium 1.8 05/29/18 05/29/18 05/28/18 08:04 02:55 20:07 WBC RBC Hgb Hct MCV MCH MCHC RDW Plt Count MPV Neut % (Auto) Lymph % (Auto) [place] % (Auto) Eos % (Auto) Baso % (Auto) Neut # (Auto) Lymph # (Auto) [place] # (Auto) Eos # (Auto) Baso # (Auto) WBC Differential Differential Comment Sodium Potassium Chloride Carbon Dioxide Anion Gap BUN Creatinine Estimated GFR POC Glucose 289 H 127 H 332 H Random Glucose Calcium Phosphorus Magnesium 05/28/18 05/28/18 17:13 16:16 WBC 4.5 RBC 3.96 L Hgb 11.0 L Hct 33.3 L MCV 84.1 MCH 27.7 MCHC 32.9 RDW 13.8 Plt Count 190 MPV 9.7 Neut % (Auto) 68.1 Lymph % (Auto) 22.2 [place] % (Auto) 8.6 H Eos % (Auto) 0.9 Baso % (Auto) 0.2 Neut # (Auto) 3.1 Lymph # (Auto) 1.0 [place] # (Auto) 0.4 Eos # (Auto) 0.0 Baso # (Auto) 0.0 WBC Differential . Differential Comment Auto diff final Sodium Potassium Chloride Carbon Dioxide Anion Gap BUN Creatinine Estimated GFR POC Glucose 273 H Random Glucose Calcium Phosphorus Magnesium Impressions ITS Impressions Chest X-Ray 05/25/18 22:23 CONCLUSION: 1. No acute cardiopulmonary disease. Discharge Plan Discharge Disposition Patient Disposition: 07 Against Medical Advice Discharge Order Discharge Orders: AMA Discharge (Routine); Ordered 05/29/18 Ordered By: Wilmer Murguia Physicians Team Primary Care Provider: Primary Care Physici,No Attending Provider: Wilmer Murguia Rxs /Orders / Referrals /Forms Prescriptions: No Action blood sugar diagnostic [Truetest Test Strips] Strip Qty: 1 RF: 0 blood-glucose meter Kit Qty: 1 RF: 0 insulin syringe-needle U-100 0.3 mL 29 gauge Syringe Qty: 100 RF: 0 Referrals: Primary Care Radha Gabriel [Primary Care Provider] - See Instructions Post Discharge Care Plan Care Plan Goals: Your Health Problems: Goals to Promote Your Health: * To prevent worsening of your condition * To maintain your health at the optimal level Directions to Meet Your Goals: * Take your medications as prescribed * Follow your dietary instruction * Follow activity as directed * Keep your appointments as scheduled * Take your immunizations and boosters as scheduled * If your symptoms worsen call your PCP * If no PCP go to Urgent Care or Emergency Room Smoking is dangerous to your health. Avoid second hand smoke. You may reach the 24-hour crisis hotline for domestic abuse at . Status ED Status: Left Department
== END 2018-05-29 14:53 | disposition left against medical advice (07) | DRG 637 ==
LOC: NEPE 22:01 → NEDA 05-26 00:30 → HIMC 05-26 01:50 → H7ONC 05-27 15:03
PROVIDERS: ADMIT Hospitalist; ATTEND Hospitalist
CPT/HCPCS: 71010; 71045; 80048; 80053; 80307; 81001; 82010; 82550; 82803; 82805; 82947; 82948; 82962; 83735; 84100; 84484; 85025; 87641; 90774; 90784; 93005; 96374; 97116; 97162; 99285; C8952; J1644; J1815; J1817; J3475; J7050; J7120; P9612